=== PATIENT | male | born 1935 | race Caucasian/White ===

== ENCOUNTER 2017-03-16 13:11 | Emergency (ER) | payer OTHER, BC ==
[~2017-03-16] VITALS: Ht 170.2 cm; Wt 63.5 kg
[~2017-03-16 13:11] MED LIST: ASPEC81 PO; MOME50SP5; SIMV40TA2 PO; [UNRECOGNIZED DRUG - CODE] PO
[2017-03-16 13:15] VITALS: TEMP 36.8; Ht 170.2 cm; Wt 63.5 kg
[2017-03-16] MEDS ORDERED: ASPI325T45 PO (13:39)
[2017-03-16] MEDS ORDERED: IBUP-1050 PO (13:40)
[2017-03-16] MEDS ORDERED: HYDROCHLOROTHIAZIDE PO (13:40)
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
--- NOTE | 2017-03-16 15:05 | DIAGNOSTIC IMAGING REPORT ---
CHEST 2 VIEWS ROUTINE CLINICAL HISTORY: Pt c/o chest pain dyspnea COMPARISON STUDY: 01/08/2011 FINDINGS: Unchanging tortuosity and ectasia thoracic aorta. Diaphragms smooth. Chronic atelectasis both lung bases unchanged from the prior study. Lungs otherwise appear clear. 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 No acute or interval process. Electronically signed by: Shyam Anaya M.D. 03/16/2017 3:04 PM Dictated Date/Time: 03/16/2017 3:03 PM
[2017-03-16 15:50] VITALS: BP 154/106; PULSE 84; O2SAT 94
[2017-05-10] MEDS ORDERED: ATOR-24 PO (13:03)
[2017-07-10] MEDS ORDERED: ATOR-24 PO (13:21)
[2017-07-10] MEDS ORDERED: DVN/160 PO (13:21)
[2017-07-10] MEDS ORDERED: FLUT0.15 (13:21)
[2017-07-28] MEDS ORDERED: OXYC-57 PO (10:08)
== END 2017-03-16 16:14 | disposition home or self-care (01) ==
LOC: EDBD 13:11 → C.EDB 13:12
DX: S60.811A Abrasion of right wrist, initial encounter (principal); S60.812A Abrasion of left wrist, initial encounter; R07.89 Other chest pain; V49.40XA Driver injured in collision with unspecified motor vehicles in traffic accident, initial encounter; Y92.410 Unspecified street and highway as the place of occurrence of the external cause; Z87.891 Personal history of nicotine dependence; I10 Essential (primary) hypertension; E78.5 Hyperlipidemia, unspecified; V89.2XXA Person injured in unspecified motor-vehicle accident, traffic, initial encounter

== ENCOUNTER 2017-05-09 13:19 | Inpatient (IN) | payer BC, OTHER ==
[~2017-05-09] VITALS: Ht 170.2 cm; Wt 60.0 kg
[~2017-05-09 13:19] MED LIST changes: -ATOR-24 PO; -DVN/160 PO; -DVN80125 PO; -FLUT0.15; -HYDR25TA5 PO; -PRLSR20 PO
[2017-05-09 14:06] LABS: ISTAT CREATININE 1.2 mg/dl (0.6-1.3); ISTAT HEMOGLOBIN 15.3 g/dl (14.0-18.0); ISTAT IONIZED CALCIUM 1.13 mmol/l (1.12-1.32)
[2017-05-09] MEDS ORDERED: SODIUM CHLORIDE 0.9% 500ML 500 ML IV STA (14:09)
[2017-05-09] MEDS ORDERED: SODIUM CHLORIDE 0.9% 1000ML 1,000 ML IV STA (14:09)
[2017-05-09] MEDS ORDERED: PRLSR20 PO (14:15)
[2017-05-09] MEDS ORDERED: DVN80125 PO (14:15)
[2017-05-09] MEDS ORDERED: HYDR25TA5 PO (14:15)
[2017-05-09 14:24] LABS: URINE APPEARANCE CLEAR (CLEAR); URINE BILIRUBIN NEG (NEG); URINE COLOR YELLOW; URINE NITRITE NEG (NEG); URINE SPECIFIC GRAVITY 1.021 (1.000-1.030); UROBILINOGEN NEG (NEG); ZZUR CULT IF INDIC CLEAN CATCH NO
[2017-05-09 14:25] LABS: INR 0.9 (0.9-1.1); PROTHROMBIN TIME (PATIENT) 10.1 SECONDS (9.0-12.0)
[2017-05-09 14:28] LABS: MANUAL MICROSCOPIC REQUIRED? NO; REVIEW REQ? NO
[2017-05-09 14:29] LABS: BUN/CREATININE RATIO 20.5 (10-20); CALCIUM 9.1 mg/dl (8.5-10.1); CREATININE 1.2 mg/dl (0.60-1.40); MAGNESIUM 2.5 mg/dl (1.8-2.4); POTASSIUM 3.1 mmol/L (3.5-5.1)
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
[2017-05-09 14:40] LABS: THYROID STIMULATING HORMONE 0.99 uIu/ml (0.300-4.500)
--- NOTE | 2017-05-09 14:46 | DIAGNOSTIC IMAGING REPORT ---
CHEST ONE VIEW PORTABLE CLINICAL HISTORY: hypotension, elev... WBC fever COMPARISON STUDY: 03/16/2017 FINDINGS: Unchanging tortuosity of the thoracic aorta. Small bibasilar parenchymal infiltrates combined with basilar atelectatic change. Mid and upper lungs are considered clear. IMPRESSION: Small bibasilar atelectatic and/or infiltrative-type change. The above report was generated using voice recognition software. It may contain grammatical, syntax or spelling errors. Electronically signed by: Shyam Anaya M.D. 05/09/2017 2:45 PM Dictated Date/Time: 05/09/2017 2:44 PM
[2017-05-09] MEDS ORDERED: POTASSIUM CHLORIDE 10 MEQ / 100ML WTR IV STA (14:54)
--- NOTE | 2017-05-09 14:57 | DIAGNOSTIC IMAGING REPORT ---
HEAD CT NONCONTRAST CT DOSE: 614.27 mGy.cm HISTORY: leukocytosis, weakness, hypotension TECHNIQUE: Multiaxial CT images of the head were performed without the use of intravenous contrast. Automated exposure control was utilized for this study. A dose lowering technique was utilized adhering to the principles of ALARA. Comparison: Head CT 01/08/2011. Findings: The left mastoid air cells are clear. Partial opacification the right mastoid air cells. No fluid levels within the paranasal sinuses. A 2.1 cm right anterior nasal polyp. This previous measured 1.7 cm. This is only partially visualized on this study The calvarium and skull base are intact. There is no mass, hematoma, midline shift, acute infarct. White matter hypodensity is nonspecific but suggestive of microvascular ischemic change. The ventricles and sulci demonstrate mild age-related involutional changes. 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 Old small left parietal infarct. These remain unchanged. Impression: 1. No acute intracranial abnormality. Old infarcts as described above. 2. Slight increase in size in a 2.1 cm right anterior nasal polyp. Direct visualization is recommended for further evaluation. Electronically signed by: Rajesh Randolph M.D. 05/09/2017 2:56 PM Dictated Date/Time: 05/09/2017 2:50 PM
[2017-05-09 15:05] LABS: HEMATOCRIT 44.3 % (42-52); MEAN CELL VOLUME 92.7 fL (80-100); MEAN CORPUSCULAR HGB CONC 34.5 g/dl (32-36); MEAN PLATELET VOLUME 9.6 fL (7.4-10.4); PLATELET COUNT 185 K/uL (130-400); RED BLOOD COUNT 4.78 M/uL (4.7-6.1)
[2017-05-09 15:32] LABS: BASO % 0.1 %; BASO ABS # 0.06 K/uL (0-0.2); COMPLETE YES; EOS % 0.5 %; IG% 0.2 %; LYMPH % 74.1 %; LYMPH ABS # 32.69 K/uL (1.2-3.4); MONO % 3.7 %; NEUT % 21.4 %
[2017-05-09 16:27] VITALS: O2SAT 95; Ht 170.2 cm; Wt 60.0 kg
[2017-05-09] MEDS ORDERED: ACETAMINOPHEN 325 MG TAB PO PRN (16:45)
[2017-05-09] MEDS ORDERED: ALUMINUM/MAGNESIUM/SIMETH (MAALOX MAX) 30 ML UDC PO PRN (16:45)
[2017-05-09] MEDS ORDERED: MAGNESIUM HYDROXIDE SUSP 30 ML UDC PO PRN (16:45)
[2017-05-09] MEDS ORDERED: ONDANSETRON INJ 2 MG/ML 2 ML VIAL IV PRN (16:45)
[2017-05-09] MEDS ORDERED: NSS + 20MEQ KCL 1000ML 1,000 ML IV ONE (18:00)
[2017-05-09] MEDS ORDERED: IBUPROFEN 200 MG TAB PO PRN (18:00)
[2017-05-09] MEDS ORDERED: OPTIRAY 320 IV PRN (18:30)
[2017-05-09 18:36] VITALS: O2SAT 98
[2017-05-09] MEDS ORDERED: POLYETHYLENE (MIRALAX) 17 GM PACK PO PRN (19:15)
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
[2017-05-09 20:00] VITALS: BP 121/80; PULSE 58; TEMP 36.6; O2SAT 100
[2017-05-09] MEDS ORDERED: SIMVASTATIN 40 MG TAB PO SCH (21:00)
[2017-05-09] MEDS ORDERED: ENOXAPARIN 40 MG/0.4 ML SYR SQ SCH (21:00)
[2017-05-10 00:09] VITALS: BP 108/66; PULSE 63; TEMP 36.9; O2SAT 96
[2017-05-10 04:21] VITALS: BP 134/84; PULSE 57; TEMP 36.9; O2SAT 97
--- NOTE | 2017-05-10 07:01 | DIAGNOSTIC IMAGING REPORT ---
CT OF THE CHEST WITH IV CONTRAST CLINICAL HISTORY: WBC 40; ?CLL on smear?; staging CT COMPARISON STUDY: Chest radiograph March 16, 2017 and May 09, 2017. TECHNIQUE: Following IV administration of 93 mL of Optiray-320, helical axial images of the chest were obtained. Sagittal and coronal reconstructions were viewed as well as maximal intensity projections on an independent 3-D workstation. A dose lowering technique was utilized adhering to the principles of ALARA. FINDINGS: No enlarged axillary, mediastinal or hilar lymph nodes are present. The heart is moderately enlarged. 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 There is mild dilatation of the ascending aorta which measures 4.3 cm. There is no dissection. No pneumothorax or pleural effusion is present. There is moderate upper lobe predominant centrilobular and paraseptal emphysema. Right lower lobe opacity favors atelectasis. Left lower lobe opacity suggest atelectasis. The abdomen and pelvis will be reported separately. There are no suspicious osseous lesions. IMPRESSION: 1. No thoracic lymphadenopathy. 2. 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 Mild dilatation of the ascending aorta. No thoracic aortic dissection. No rupture. 3. Moderate upper lobe predominant emphysema. 4. Bilateral lower lobe opacities which favor atelectasis. An infectious process could appear similar although is considered less likely. Electronically signed by: Jaxson Foote M.D. 05/10/2017 6:59 AM Dictated Date/Time: 05/10/2017 6:49 AM
[2017-05-10 07:11] VITALS: BP 114/64; PULSE 65; TEMP 37.4; O2SAT 97
--- NOTE | 2017-05-10 07:15 | DIAGNOSTIC IMAGING REPORT ---
CT NECK WITH INTRAVENOUS CONTRAST. HISTORY: Assess for lymphoma. WBC 40; ?CLL on smear?; staging CT TECHNIQUE: Multiaxial CT images of the neck were performed following the use of intravenous contrast. COMPARISON STUDY: None. FINDINGS: The visualized brain parenchyma and orbits are within normal limits. A 2.1 cm polyp within the right anterior nasal cavity. Partial opacification of the right mastoid air cells. No suspicious lytic or blastic osseous lesions. Mild emphysema. The thyroid gland enhances normally. There are few subcentimeter cervical lymph nodes. These do not meet CT criteria for pathologic involvement. The major mucosal airway surfaces are intact. The parotid and submandibular glands are symmetric. Prevertebral soft tissues and the epiglottis are normal in thickness. Mild hypertrophy of the right lingual tonsils in comparison to the left. Moderate calcified plaque within the bilateral carotid bifurcations without significant stenosis. The left internal jugular vein is not well visualized and may be hypoplastic or absent. IMPRESSION: 1. No enlarged cervical lymph nodes. 2. A 2.1 cm polyp within the right anterior nasal cavity. Direct visualization recommended. 3. No soft tissue masses within the neck. 3. Emphysema. 4. Mild hypertrophy of the right lingual tonsils in comparison to the left. 5. The left internal jugular vein is not well visualized and may be hypoplastic or absent. Electronically signed by: Rajesh Randolph M.D. 05/10/2017 7:14 AM Dictated Date/Time: 05/10/2017 7:07 AM
--- NOTE | 2017-05-10 07:18 | DIAGNOSTIC IMAGING REPORT ---
CT OF THE ABDOMEN AND PELVIS WITH CONTRAST CLINICAL HISTORY: WBC 40; ?CLL on smear?; staging CT COMPARISON STUDY: None. TECHNIQUE: Following IV administration of 93 mL of Optiray-320, axial images of the abdomen and pelvis were obtained from the lung bases to the proximal femurs. Images were reviewed in the axial, sagittal, and coronal planes. IV contrast was administered without complication. A dose lowering technique was utilized adhering to the principles of ALARA. CT DOSE: 1043.37 mGy.cm FINDINGS: The liver, spleen and pancreas are unremarkable. There is no biliary or pancreatic ductal dilatation. There are innumerable bilateral renal lesions. The majority of these measure water attenuation reflect cysts. The largest is a 5.5 cm lesion arising from the lower pole of the right kidney. This contains mild peripheral calcification. A few lesions contains small septations. A 9 mm lesion within the upper pole of the left kidney shown image 116 of 421 measures above water attenuation. This lesion is indeterminate. There are several prominent upper abdominal lymph nodes, including a peripancreatic node shown image 117 that measures 1 cm in short axis diameter. A left para-aortic lymph node located inferior to the left renal vein shown on image 156 measures 1.4 cm in short axis diameter. There is extensive atherosclerotic plaque within the aortoiliac system. Thoracic aortic aneurysm is better depicted on the chest CT. The prostate is markedly enlarged. A right inguinal hernia contains several loops of small bowel. There is no resultant bowel obstruction. A left inguinal hernia contains the superior aspect of the bladder. The bladder wall thickening. No suspicious osseous lesions are present. There is no bowel obstruction. There is extensive colonic diverticulosis without evidence for acute diverticulitis. IMPRESSION: 1. A few minimally enlarged upper abdominal lymph nodes, several which are partially calcified. These lymph nodes are nonspecific although not highly suspicious for leukemia/lymphoma. 2. Innumerable bilateral renal cysts. 9 mm lesion within the upper pole of the left kidney which measures above water attenuation. This could reflect a hyperdense cyst or small solid renal lesion and a follow-up renal protocol MRI in 6 months is recommended. 3. Colonic diverticulosis without evidence for acute diverticulitis. 4. Right inguinal hernia contains several loops of small bowel without resultant bowel obstruction. Left inguinal hernia contains portion of the bladder. Bladder wall thickening, a nonspecific finding. Marked enlargement of the prostate. 5. Extensive atherosclerotic plaque of the abdominal aorta and major branch vessels. Ectatic abdominal aorta without aneurysmal dilatation of the abdominal aorta. Thoracic aortic aneurysm better depicted on the chest CT. Electronically signed by: Jaxson Foote M.D. 05/10/2017 7:16 AM Dictated Date/Time: 05/10/2017 7:02 AM
--- NOTE | 2017-05-10 07:24 | Medical Student: [facility] ---
Med Student Progress Note Date of Service May 10, 2017. Subjective Pt evaluation today including: conversation w/ patient, physical exam, chart review, lab review Patient was examined sitting up in bed this morning. He saw heme/onc this morning and will be discharged to f/u with them as an outpatient. He feels well with no complaints at this time. Review of Systems Constitutional: No fever, No chills, No sweats Eyes: No worsening of vision, No diplopia ENT: + hearing loss (R>L), No sore throat, No trouble swallowing Respiratory: No cough, No wheezing, No shortness of breath Cardiac: No chest pain, No palpitations Abdomen: No pain, No nausea, No vomiting, No diarrhea, No constipation Musculoskeletal: No joint pain, No muscle pain, No calf pain Male : No dysuria, No incontinence Neurologic: No paralysis, No weakness, No numbness/tingling Heme: No abnormal bleeding/bruising, No swollen lymph nodes Skin: No rash, No itch Objective Vital Signs Date Time Temp Pulse Resp B/P (MAP) Pulse Ox O2 Delivery O2 Flow Rate FiO2 05/10/17 07:11 37.4 65 16 114/64 (81) 97 Room Air 05/10/17 04:21 36.9 57 18 134/84 (101) 97 Room Air 05/10/17 00:09 36.9 63 20 108/66 (80) 96 Room Air 05/10/17 00:00 Room Air 100 05/09/17 20:00 36.6 58 18 121/80 (94) 100 Room Air 05/09/17 20:00 Room Air 100 05/09/17 18:36 58 18 134/97 98 05/09/17 18:02 63 22 141/83 96 Room Air 05/09/17 17:49 61 21 05/09/17 17:19 63 19 05/09/17 17:01 122/112 05/09/17 16:49 72 20 05/09/17 16:27 95 Room Air 05/09/17 16:19 56 30 95 05/09/17 16:05 60 20 109/67 95 Room Air 05/09/17 16:01 109/67 05/09/17 15:49 56 17 97 05/09/17 15:31 142/83 05/09/17 15:19 70 24 93 05/09/17 15:17 67 22 92/61 94 Room Air 05/09/17 15:00 92/61 05/09/17 14:55 90/59 05/09/17 14:24 74 05/09/17 14:14 109/60 05/09/17 14:00 94 Room Air 05/09/17 13:21 36.7 92 18 93/57 94 Physical Exam General Appearance: WD/WN, no apparent distress Eyes: bilateral eyes normal inspection, bilateral eyes PERRL, bilateral eyes EOMI ENT: normal ENT inspection, pharynx normal Neck: supple, no carotid bruits, + adenopathy present (palpable left submandibular lymph node) Respiratory/Chest: lungs clear, normal breath sounds, no respiratory distress, no accessory muscle use Cardiovascular: regular rate, rhythm, no gallop, no murmur Abdomen: normal bowel sounds, non tender, soft Extremities: normal range of motion, no calf tenderness, normal capillary refill Neurologic/Psychiatric: no motor/sensory deficits, alert, normal mood/affect, oriented x 3 Skin: normal color, warm/dry, no rash Lymphatic: + pertinent finding (palpable left submandibular lymph node) Laboratory Results Last 24 Hours Test 05/09/17 13:40 05/09/17 13:45 05/09/17 13:49 05/09/17 13:53 Urine Color YELLOW Urine Appearance CLEAR Urine pH 6.0 Urine Specific [place] 1.021 Urine Protein NEG Urine Glucose (UA) NEG Urine Ketones NEG Urine Occult Blood NEG Urine Nitrite NEG Urine Bilirubin NEG Urine Urobilinogen NEG Urine Leukocyte Esterase NEG White Blood Count 44.10 K/uL Red Blood Count 4.78 M/uL Hemoglobin 15.3 g/dL Hematocrit 44.3 % Mean Corpuscular Volume 92.7 fL Mean Corpuscular Hemoglobin 32.0 pg Mean Corpuscular Hemoglobin Concent 34.5 g/dl Platelet Count 185 K/uL Mean Platelet Volume 9.6 fL Neutrophils (%) (Auto) 21.4 % Lymphocytes (%) (Auto) 74.1 % Monocytes (%) (Auto) 3.7 % Eosinophils (%) (Auto) 0.5 % Basophils (%) (Auto) 0.1 % Neutrophils # (Auto) 9.40 K/uL Lymphocytes # (Auto) 32.69 K/uL Monocytes # (Auto) 1.63 K/uL Eosinophils # (Auto) 0.22 K/uL Basophils # (Auto) 0.06 K/uL RDW Standard Deviation 47.9 fL RDW Coefficient of Variation 14.2 % Immature Granulocyte % (Auto) 0.2 % Immature Granulocyte # (Auto) 0.10 K/uL Blood Smear Review Prothrombin Time 10.1 SECONDS Prothromb Time International Ratio 0.9 Activated Partial Thromboplast Time 25.1 SECONDS Partial Thromboplastin Ratio 1.0 Sodium Level 138 mmol/L Potassium Level 3.1 mmol/L Chloride Level 100 mmol/L Carbon Dioxide Level 32 mmol/L Anion Gap 6.0 mmol/L 17.0 mmol/L Blood Urea Nitrogen 25 mg/dl Creatinine 1.20 mg/dl Est Creatinine Clear Calc Drug Dose 42.4 ml/min Estimated GFR () 66.3 Estimated GFR (Non- 57.2 BUN/Creatinine Ratio 20.5 Random Glucose 134 mg/dl Calcium Level 9.1 mg/dl Magnesium Level 2.5 mg/dl Total Bilirubin 0.7 mg/dl Direct Bilirubin 0.1 mg/dl Aspartate Amino Transf (AST/SGOT) 15 U/L Alanine Aminotransferase (ALT/SGPT) 34 U/L Alkaline Phosphatase 75 U/L Total Creatine Kinase 33 U/L Creatine Kinase MB 1.0 ng/ml Creatine Kinase MB Ratio 3.0 Total Protein 7.0 gm/dl Albumin 3.3 gm/dl Thyroid Stimulating Hormone (TSH) 0.990 uIu/ml Bedside Lactic Acid Venous 1.71 mmol/L Bedside Hemoglobin 15.3 g/dl Bedside Hematocrit 45 % Bedside Sodium 137 mEq/L Bedside Potassium 3.1 mEq/L Bedside Chloride 95 mEq/L Bedside Total CO2 29 mEq/l Bedside Blood Urea Nitrogen 27 mg/dl Bedside Creatinine 1.2 mg/dl Bedside Glucose (other) 140 mg/dl Bedside Ionized Calcium (Evan) 1.13 mmol/l Test 05/10/17 04:44 Assessment and Plan Assessment and Plan: This is a 81yo male with incidental finding of WBC 40 on outpatient labs and subsequent peripheral smear suggestive of CLL with no B symptoms suggestive of acute blast crisis. Plan: 1. Lymphocytosis with CLL -WBC 40, peripheral smear suggestive of CLL -CT w/ contrast of neck, thorax abdomen/pelvis for staging -heme/onc consult completed -patient will be discharged and will f/u as outpatient with heme/onc 2. Hypertension - patient presented with BP 90s/60s, responsive to fluid boluses in the ED -continue IV nss + 20meq KCl -HOLD HCT and Lisinopril HCTZ; continue to monitor BP 3. GERD -continue omeprazole 20mg PO daily 4. Hx of Carotid atherosclerosis with endarterectomy -continue ASA 325mg PO daily 5. DVT prophylaxis -lovenox 40 mg s.c. daily 6. Discharge -Location: home w/ heme-onc f/u -Date: 05/10/17 Discharge planning: home (with outpatient heme/onc follow-up)
[2017-05-10] MEDS ORDERED: PANTOprazole SOD 40 MG TAB PO SCH (08:00)
[2017-05-10] MEDS ORDERED: ASPIRIN 325 MG ECTAB PO SCH (08:00)
[2017-05-10 09:35] LABS: BUN/CREATININE RATIO 15.3 (10-20); CALCIUM 8.4 mg/dl (8.5-10.1); CREATININE 0.96 mg/dl (0.60-1.40)
[2017-05-10 09:48] LABS: POTASSIUM 3.7 mmol/L (3.5-5.1)
[2017-05-10 10:27] LABS: HEMATOCRIT 36.4 % (42-52); MEAN CELL VOLUME 92.6 fL (80-100); MEAN CORPUSCULAR HEMOGLOBIN 30.5 pg (25-34); MEAN PLATELET VOLUME 9.5 fL (7.4-10.4); PLATELET COUNT 158 K/uL (130-400); RED BLOOD COUNT 3.93 M/uL (4.7-6.1); WHITE BLOOD COUNT 34.59 K/uL (4.8-10.8)
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
[2017-05-10 10:58] LABS: BASO % 0.1 %; BASO ABS # 0.03 K/uL (0-0.2); COMPLETE YES; EOS % 0.8 %; IG% 0.3 %; LYMPH % 70.7 %; LYMPH ABS # 24.47 K/uL (1.2-3.4); NEUT % 24.1 %
--- NOTE | 2017-05-10 11:14 | Discharge Instructions ---
Discharge Instructions Date of Service May 10, 2017. Admission Reason for Admission: Lymphocytosis, Weakness Discharge Discharge Diagnosis / Problem: CLL Discharge Goals Goal(s): Diagnostic testing, Screening Activity Recommendations Activity Limitations: resume your previous activity Exercise/Sports Limitations: as tolerated Shower/Bathe: no limitations . Instructions / Follow-Up Instructions / Follow-Up You came to the ED because you had high white blood cells that were incidentally caught on your lab work. A smear of your blood is suggestive of chronic lymphocytic leukemia. 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 We will arrange for you to see a vascular surgeon to get their recommendations on long-term management but this is not an acute issue that requires intervention at this time. We are going to change your simvastatin to atorvastatin, to help with plaque stabilization - You have have a non-specific spot on your kidney, which should be followed-up in [address] with [address] scan. We will notify your PCP so he can arrange this. - There is no clear areas of CLL infiltrating your organs which is very reassuring Our oncologist saw you and recommends you can be discharged with follow-up in the office. CLL is usually monitored closely in the outpatient setting without intervention unless there are symptoms or invasive disease of the organs, which fortunately, you do not have. We will arrange for you to see oncology in the outpatient office. You blood pressure was also slightly low when you came in and we noticed that you were on two blood pressure medications. We held both of these. Because your blood pressure was so well-controlled in the hospital, please hold your HCTZ until you follow up with your PCP. If your symptoms fail to improve, acutely worsen, please seek medical attention immediately by either calling your primary care provider or going to your nearest emergency department. Otherwise, please see your primary care provider in 3-5 days to ensure that your symptoms continue to improve. Current Hospital Diet Patient's current hospital diet: AHA Diet (Heart Healthy) Discharge Diet Recommended Diet: Regular Diet Procedures Procedures Performed: CT NECK WITH INTRAVENOUS CONTRAST. HISTORY: Assess for lymphoma. WBC 40; ?CLL on smear?; staging CT TECHNIQUE: Multiaxial CT images of the neck were performed following the use of intravenous contrast. COMPARISON STUDY: None. FINDINGS: The visualized brain parenchyma and orbits are within normal limits. A 2.1 cm polyp within the right anterior nasal cavity. Partial opacification of the right mastoid air cells. No suspicious lytic or blastic osseous lesions. Mild emphysema. The thyroid gland enhances normally. There are few subcentimeter cervical lymph nodes. These do not meet CT criteria for pathologic involvement. The major mucosal airway surfaces are intact. The parotid and submandibular glands are symmetric. Prevertebral soft tissues and the epiglottis are normal in thickness. Mild hypertrophy of the right lingual tonsils in comparison to the left. Moderate calcified plaque within the bilateral carotid bifurcations without significant stenosis. The left internal jugular vein is not well visualized and may be hypoplastic or absent. IMPRESSION: 1. No enlarged cervical lymph nodes. 2. A 2.1 cm polyp within the right anterior nasal cavity. Direct visualization recommended. CT OF THE CHEST WITH IV CONTRAST CLINICAL HISTORY: WBC 40; ?CLL on smear?; staging CT COMPARISON STUDY: Chest radiograph March 16, 2017 and May 09, 2017. TECHNIQUE: Following IV administration of 93 mL of Optiray-320, helical axial images of the chest were obtained. Sagittal and coronal reconstructions were viewed as well as maximal intensity projections on an independent 3-D workstation. A dose lowering technique was utilized adhering to the principles of ALARA. FINDINGS: No enlarged axillary, mediastinal or hilar lymph nodes are present. The heart is moderately enlarged. 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 There is mild dilatation of the ascending aorta which measures 4.3 cm. There is no dissection. No pneumothorax or pleural effusion is present. There is moderate upper lobe predominant centrilobular and paraseptal emphysema. Right lower lobe opacity favors atelectasis. Left lower lobe opacity suggest atelectasis. The abdomen and pelvis will be reported separately. There are no suspicious osseous lesions. IMPRESSION: 1. No thoracic lymphadenopathy. 2. 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 Mild dilatation of the ascending aorta. No thoracic aortic dissection. No rupture. 3. Moderate upper lobe predominant emphysema. 4. Bilateral lower lobe opacities which favor atelectasis. An infectious process could appear similar although is considered less likely. Electronically signed by: Jaxson Foote M.D. 05/10/2017 6:59 AM Dictated Date/Time: 05/10/2017 6:[address] OF THE ABDOMEN AND PELVIS WITH CONTRAST CLINICAL HISTORY: WBC 40; ?CLL on smear?; staging CT COMPARISON STUDY: None. TECHNIQUE: Following IV administration of 93 mL of Optiray-320, axial images of the abdomen and pelvis were obtained from the lung bases to the proximal femurs. Images were reviewed in the axial, sagittal, and coronal planes. IV contrast was administered without complication. A dose lowering technique was utilized adhering to the principles of ALARA. CT DOSE: 1043.37 mGy.cm FINDINGS: The liver, spleen and pancreas are unremarkable. There is no biliary or pancreatic ductal dilatation. There are innumerable bilateral renal lesions. The majority of these measure water attenuation reflect cysts. The largest is a 5.5 cm lesion arising from the lower pole of the right kidney. This contains mild peripheral calcification. A few lesions contains small septations. A 9 mm lesion within the upper pole of the left kidney shown image 116 of 421 measures above water attenuation. This lesion is indeterminate. There are several prominent upper abdominal lymph nodes, including a peripancreatic node shown image 117 that measures 1 cm in short axis diameter. A left para-aortic lymph node located inferior to the left renal vein shown on image 156 measures 1.4 cm in short axis diameter. There is extensive atherosclerotic plaque within the aortoiliac system. Thoracic aortic aneurysm is better depicted on the chest CT. The prostate is markedly enlarged. A right inguinal hernia contains several loops of small bowel. There is no resultant bowel obstruction. A left inguinal hernia contains the superior aspect of the bladder. The bladder wall thickening. No suspicious osseous lesions are present. There is no bowel obstruction. There is extensive colonic diverticulosis without evidence for acute diverticulitis. IMPRESSION: 1. A few minimally enlarged upper abdominal lymph nodes, several which are partially calcified. These lymph nodes are nonspecific although not highly suspicious for leukemia/lymphoma. 2. Innumerable bilateral renal cysts. 9 mm lesion within the upper pole of the left kidney which measures above water attenuation. This could reflect a hyperdense cyst or small solid renal lesion and a follow-up renal protocol MRI in 6 months is recommended. 3. Colonic diverticulosis without evidence for acute diverticulitis. 4. Right inguinal hernia contains several loops of small bowel without resultant bowel obstruction. Left inguinal hernia contains portion of the bladder. Bladder wall thickening, a nonspecific finding. Marked enlargement of the prostate. 5. Extensive atherosclerotic plaque of the abdominal aorta and major branch vessels. Ectatic abdominal aorta without aneurysmal dilatation of the abdominal aorta. Thoracic aortic aneurysm better depicted on the chest CT. Electronically signed by: Jaxson Foote M.D. 05/10/2017 7:16 AM Dictated Date/Time: 05/10/2017 7:02 AM Pending Studies Studies pending at discharge: no Laboratory Results Lipid Panel Test 05/09/17 09:07 Range/Units Triglycerides Level 140 0-150 mg/dl Cholesterol Level 150 0-200 mg/dl HDL Cholesterol 60 mg/dl Cholesterol/HDL Ratio 2.5 LDL Cholesterol, Calculated 62 mg/dl Medical Emergencies . Who to Call and When: Medical Emergencies: If at any time you feel your situation is an emergency, please call 911 immediately. . Non-Emergent Contact Non-Emergency issues call your: Primary Care Provider Call Non-Emergent contact if: you have a fever, you have any medication questions . . "Provider Documentation" section prepared by Eh Alexandre. . VTE Core Measure Inpt VTE Proph given/why not?: Enoxaparin (Lovenox)SQ
[2017-05-10 11:18] VITALS: BP 107/67; PULSE 70; TEMP 36.7; O2SAT 96
[2017-05-10] MEDS ORDERED: ATOR-24 PO (13:03)
[2017-05-10 13:18] VITALS: BP 107/67; PULSE 70; TEMP 36.7; O2SAT 96
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
[2017-07-10] MEDS ORDERED: DVN/160 PO (13:21)
[2017-07-10] MEDS ORDERED: ATOR-24 PO (13:21)
[2017-07-10] MEDS ORDERED: FLUT0.15 (13:21)
== END 2017-05-10 14:21 | disposition home or self-care (01) | DRG 842 ==
LOC: C.EDB 13:21 → C.4E 17:47 → ENRESERV 17:54
PROVIDERS: ADMIT Student in an Organized Health Care Education/Training Program; ATTEND Family Medicine
DX: C91.10 Chronic lymphocytic leukemia of B-cell type not having achieved remission (principal); E78.5 Hyperlipidemia, unspecified; I10 Essential (primary) hypertension; Z87.891 Personal history of nicotine dependence; K21.9 Gastro-esophageal reflux disease without esophagitis; H90.5 Unspecified sensorineural hearing loss; I67.2 Cerebral atherosclerosis; K30 Functional dyspepsia

== ENCOUNTER → 2017-05-09 | Outpatient (CLI) | payer BC ==
[~2017-05-09] MED LIST changes: -ASPEC81 PO; +ASPI325T45 PO; +ATOR-24 PO; +DVN/160 PO; +DVN80125 PO; +FLUT0.15; +HYDR25TA5 PO; +HYDROCHLOROTHIAZIDE PO; +IBUP-1050 PO; -MOME50SP5; +PRLSR20 PO
[2017-05-09 10:46] LABS: HEMATOCRIT 43.9 % (42-52); MEAN CELL VOLUME 93.2 fL (80-100); MEAN CORPUSCULAR HEMOGLOBIN 31.6 pg (25-34); MEAN CORPUSCULAR HGB CONC 33.9 g/dl (32-36); MEAN PLATELET VOLUME 9.6 fL (7.4-10.4); PLATELET COUNT 163 K/uL (130-400); RED BLOOD COUNT 4.71 M/uL (4.7-6.1); WHITE BLOOD COUNT 40.29 K/uL (4.8-10.8)
[2017-05-09 10:58] LABS: BASO % 0.1 %; BASO ABS # 0.05 K/uL (0-0.2); COMPLETE YES; EOS % 0.8 %; IG% 0.2 %; MONO % 3.9 %
[2017-05-09 12:00] LABS: ALT/SGPT 36 U/L (12-78); AST/SGOT 17 U/L (15-37); BLOOD UREA NITROGEN 23 mg/dl (7-18); BUN/CREATININE RATIO 23.1 (10-20); CALCIUM 9.2 mg/dl (8.5-10.1); CARBON DIOXIDE 34 mmol/L (21-32); CHLORIDE 98 mmol/L (98-107); CHOLESTEROL 150 mg/dl (0-200); GLUCOSE 93 mg/dl (70-99); POTASSIUM 3.4 mmol/L (3.5-5.1); SODIUM 138 mmol/L (136-145)
[2017-05-09 12:11] LABS: ALB/GLOB RATIO 0.9 (0.9-2); ALKALINE PHOSPHATASE 67 U/L (45-117); CHOLESTEROL/HDL RATIO 2.5; HDL CHOLESTEROL 60 mg/dl; LDL CHOLESTEROL CALCULATED 62 mg/dl; TRIGLYCERIDES 140 mg/dl (0-150); VERY LOW DENSITY LIPOPROT CALC 28 mg/dl
== END | disposition home or self-care (01) ==
LOC: C.LAB1850 09:01
PROVIDERS: ATTEND Internal Medicine
DX: E78.5 Hyperlipidemia, unspecified (principal); I67.2 Cerebral atherosclerosis; K30 Functional dyspepsia

== ENCOUNTER → 2017-05-22 | Outpatient (CLI) | payer BC, OTHER ==
[~2017-05-22] MED LIST changes: +ATOR-24 PO; +DVN/160 PO; +DVN80125 PO; +FLUT0.15; +GADAVIST IV PRN; -HYDROCHLOROTHIAZIDE PO; +PRLSR20 PO; -SIMV40TA2 PO; -[UNRECOGNIZED DRUG - CODE] PO
--- NOTE | 2017-05-22 10:54 | DIAGNOSTIC IMAGING REPORT ---
BRAIN COMBO FOR IAC CLINICAL HISTORY: *W/ IACS*RETRACTION OF TYMPANIC MEMBRANE OF RT EAR. Right-sided hearing loss COMPARISON STUDY: MRI of the brain January 09, [address] May 09, 2017. TECHNIQUE: Utilizing a 1.5 Nora magnet, multiplanar, multi echo imaging of the brain was performed pre and postcontrast administration with thin cut imaging through the internal auditory canals. Injection of 5.5 cc of Gadavist IV was uneventful. FINDINGS: There are no areas of restricted diffusion. No acute intracranial hemorrhage, midline shift or mass effect is present. Ventricular system is stable. Basilar cisterns are patent. There are no extra-axial collections. Flow-voids for the major intracranial vessels are present. There is no intracranial mass or pathologic enhancement. No abnormalities are identified within the internal auditory canals. No cerebellopontine angle mass is present. A moderate amount of fluid is noted within the right mastoid air cells. There is no fluid within left mastoid air cells. Evaluation for bony erosion is suboptimal given MR technique. There are scattered old lacunar infarcts. Moderate small vessel disease is present. Calvarial signal is maintained. A 2 cm right anterior nasal polyp is noted. IMPRESSION: 1. No acute intracranial findings. 2. Right mastoid effusion with moderate amount of fluid within the right mastoid air cells. 3. No abnormalities within the internal auditory canals. 4. No intracranial masses or pathologic enhancement. Electronically signed by: Jaxson Foote M.D. 05/22/2017 10:52 AM Dictated Date/Time: 05/22/2017 10:45 AM
== END | disposition home or self-care (01) ==
LOC: C.MRIBC 09:07
PROVIDERS: ATTEND Physician Assistant
DX: H73.891 Other specified disorders of tympanic membrane, right ear (principal)

== ENCOUNTER 2017-07-26 06:06 | Inpatient (IN) | payer BC, OTHER ==
[2017-07-10 13:21] VITALS: BMI 21.0
--- NOTE | 2017-07-10 13:57 | PAT Medication Instructions ---
Service Date Jul 10, 2017. Current Home Medication List Aspirin (Aspirin), 325 MG PO QAM Atorvastatin (Lipitor), 40 MG PO QPM Fluticasone Propionate (Nasal) (Flonase Allergy Relief), 1 DOSE NA DAILY Ibuprofen (Advil), 200-600 MG PO Q4H PRN for Pain Omeprazole (Prilosec), 20 MG PO DAILY Valsartan (Diovan), 160 MG PO QAM Medication Instructions For Your Scheduled Surgery - Check with surgeon for instructions: Ibuprofen (Advil), 200-600 MG PO Q4H PRN for Pain - Check with surgeon and prescribing physician for instructions: Aspirin (Aspirin), 325 MG PO QAM - Hold the following medications the morning of surgery: Valsartan (Diovan), 160 MG PO QAM - Take the following medications the morning of surgery with a sip of water: Omeprazole (Prilosec), 20 MG PO DAILY Fluticasone Propionate (Nasal) (Flonase Allergy Relief), 1 DOSE NA DAILY - Take the following medications as scheduled the night before surgery: Atorvastatin (Lipitor), 40 MG PO QPM If you have any questions please call us at [phone] or [phone] or [phone]
[2017-07-10 14:37] LABS: PROTHROMBIN TIME (PATIENT) 11.2 SECONDS (9.0-12.0)
[2017-07-10 15:12] LABS: HEMATOCRIT 41.9 % (42-52); MEAN CELL VOLUME 92.3 fL (80-100); MEAN CORPUSCULAR HEMOGLOBIN 31.1 pg (25-34); MEAN CORPUSCULAR HGB CONC 33.7 g/dl (32-36); MEAN PLATELET VOLUME 9.4 fL (7.4-10.4); PLATELET COUNT 171 K/uL (130-400); RED BLOOD COUNT 4.54 M/uL (4.7-6.1); WHITE BLOOD COUNT 13.06 K/uL (4.8-10.8)
[2017-07-10 16:38] LABS: BUN/CREATININE RATIO 19.9 (10-20); CALCIUM 9.3 mg/dl (8.5-10.1); POTASSIUM 3.5 mmol/L (3.5-5.1)
[2017-07-10 16:52] LABS: BASO % 0.4 %; BASO ABS # 0.05 K/uL (0-0.2); COMPLETE YES; EOS % 2.3 %; IG% 0.1 %; LYMPH % 57.9 %; LYMPH ABS # 7.56 K/uL (1.2-3.4); MONO % 5.7 %; NEUT % 33.6 %
[~2017-07-26] VITALS: Ht 170.2 cm; Wt 63.8 kg
[2017-07-26] VITALS (12 sets, daily range): BP systolic 108–178; BP diastolic 56–112; PULSE 60–97; TEMP 36.3–36.7; O2SAT 97–100; Ht 170.2 cm; Wt 63.8 kg
--- NOTE | 2017-07-26 05:33 | History and Physical ---
History & Physical Date of Service Jul 26, 2017. History & Physical CC: Thoracic aortic aneurysm HPI: Mr. Kline is a 81-year-old gentleman who was recently admitted for hypotension. He was found to have an elevated white count and lymphocytosis. Diagnosis was made of chronic lymphocytic leukemia. He also had a CT scan which showed a 6.3 cm thoracic aortic aneurysm. This was of the descending aorta. He is asymptomatic from this lesion. He denies any chest complaints of cardiac origin. He denies any claudication. He denies any symptoms of cerebrovascular insufficiency. ALLERGIES: KVNG INHIBITORS AND CODEINE. MEDICATIONS: Aspirin, hydrochlorothiazide, omeprazole, simvastatin and valsartan. PAST MEDICAL HISTORY: Positive for hypertension, carotid artery disease and stroke. PAST SURGICAL HISTORY: Tonsillectomy, hernia repair and left carotid endarterectomy. FAMILY HISTORY: Positive for heart disease, hypertension, cancer, circulatory problems and stroke. SOCIAL HISTORY: He quit smoking in 2008. He drinks 1 beer or glass of wine a day. REVIEW OF SYSTEMS: Ten systems were reviewed. Only positive finding was occasional heartburn. PHYSICAL EXAMINATION: The patient is awake, oriented x3. He is in no apparent distress. His blood pressure is 146/90 on the left, 148/86 on the right. Head and neck are within normal limits. I cannot appreciate carotid bruits. Heart regular rate and rhythm. Lungs are clear. Abdominal exam is benign, no aneurysmal dilatation of the aorta is appreciated. Vascular exam is radials, carotids, superficial temporal arteries +2 bilaterally. Femorals are +2 bilaterally. Pedals are +1 bilaterally. There is good capillary refill in both feet. Neurologic exam is grossly intact to motor and sensory function. I reviewed the CT scan and showed a 6.3 cm, mid thoracic descending aortic aneurysm. It has a good proximal and distal neck. ASSESSMENT: Thoracic aortic aneurysm. PLAN AND RECOMMENDATIONS: At this point due to size of the aneurysm, we recommended an endovascular repair. He is a good candidate for this approach looking at the CT scan. In regards to his CLL the oncologists are following up conservatively at this point and have no plans of treatment in the near future. He was also told about spinal monitoring for the procedure and risk of paraplegia. I have discussed the risks options and benefits of the procedure with the patient. The patient understands the risks options and benefits and agrees to the procedure.
[~2017-07-26 06:06] MED LIST changes: +CEFAZOLIN 1000MG IV PUSH 5 ML IV SCH; -DVN80125 PO; -GADAVIST IV PRN; +LACTATED RINGER'S 1000ML 1,000 ML IV SCH; +SODIUM CHLORIDE 0.9% 1000ML 1,000 ML IV SCH
[2017-07-26] MEDS ORDERED: ONDANSETRON INJ 2 MG/ML 2 ML VIAL ONE (06:24)
[2017-07-26] MEDS ORDERED: MIDAZOLAM HCL 1 MG/ML 2ML VIAL ONE (06:24)
[2017-07-26] MEDS ORDERED: PROPOFOL IV EMULSION 10 MG/ML 20 ML VIAL IV ONE (06:24)
[2017-07-26] MEDS ORDERED: ROCURONIUM BROMIDE 10 MG/ML 5 ML VIAL IV ONE ×2 (06:24→09:55)
[2017-07-26] MEDS ORDERED: LIDOCAINE HCL 2% 2 ML VIAL (20MG/ML) ONE (06:24)
[2017-07-26] MEDS ORDERED: FENTANYL CITRATE INJ 50 MCG/1 ML 2 ML VIAL ONE (06:25)
[2017-07-26] MEDS ORDERED: FENTANYL CITRATE INJ 50 MCG/1 ML 2 ML VIAL IV PRN (07:00)
[2017-07-26] MEDS ORDERED: ATROPINE SULFATE 0.1 MG/ML 5ML SYR IV PRN (07:00)
[2017-07-26] MEDS ORDERED: EpHEDrine SULFATE INJ 50 MG/ML AMP IV PRN (07:00)
[2017-07-26] MEDS ORDERED: ONDANSETRON INJ 2 MG/ML 2 ML VIAL IV PRN (07:00)
[2017-07-26] MEDS ORDERED: GELATIN SPONGE SZ 100 ONE (07:12)
[2017-07-26] MEDS ORDERED: THROMBIN FOR SOLN 20000 UNIT KIT ONE (07:12)
[2017-07-26] MEDS ORDERED: HEPARIN SOD (PORCINE) 1000 UNIT/ML 10 ML VIAL ONE ×2 (07:13→09:20)
[2017-07-26] MEDS ORDERED: CEFAZOLIN SOD 1 GM VIAL ONE (07:13)
[2017-07-26 07:19] LABS: BUN/CREATININE RATIO 22.8 (10-20); CALCIUM 9.1 mg/dl (8.5-10.1); CREATININE 0.97 mg/dl (0.60-1.40); POTASSIUM 3.5 mmol/L (3.5-5.1)
[2017-07-26] MEDS ORDERED: LIDOCAINE HCL 2% JELLY 30 ML TUBE EXT ONE (07:23)
[2017-07-26] MEDS ORDERED: LIDOCAINE/EPINEPHRINE 1% INJ 50 ML VIAL ONE (07:24)
--- NOTE | 2017-07-26 07:47 | History & Physical Bridge Note ---
H&P Re-Evaluation Bridge Note: I have examined the patient, reviewed the History & Physical and in the interval since the performance of the History & Physical I have noted the following changes of clinical significance: No changes noted
[2017-07-26] MEDS ORDERED: BUPIVACAINE/EPINEPHRINE 0.5% MPF 1:200,000 30 ML VIAL ONE ×2 (08:15)
[2017-07-26] MEDS ORDERED: EpHEDrine SULFATE 50MG/5ML SYR ONE (08:54)
[2017-07-26] MEDS ORDERED: ALBUMIN HUMAN 5% 12.5 GM/250 ML VIAL IV ONE (10:00)
[2017-07-26] MEDS ORDERED: MINERAL OIL LIGHT 10 ML BTL ONE (10:08)
[2017-07-26] MEDS ORDERED: IODIXANOL (VISIPAQUE) 270 MG/ML 150ML XX ONE (10:45)
[2017-07-26] MEDS ORDERED: PHENYLEPHRINE HCL INJ 10 MG/ML VIAL ONE (10:48)
[2017-07-26] MEDS ORDERED: EpHEDrine SULFATE INJ 50 MG/ML AMP ONE (10:48)
[2017-07-26] MEDS ORDERED: GLYCOPYRROLATE INJ 0.2 MG/ML VIAL ONE (11:05)
[2017-07-26] MEDS ORDERED: NEOSTIGMINE METHYLSULFATE 5 MG/5 ML SYR ONE (11:05)
[2017-07-26] MEDS ORDERED: LABETALOL HCL IV 5 MG/ML 20ML IV ONE (11:13)
--- NOTE | 2017-07-26 11:14 | [facility] Post Operative Brief Note ---
Immediate Operative Summary Operative Date Jul 26, 2017. Pre-Operative Diagnosis Thoracic aortic aneurysm Post-Operative Diagnosis Thoracic aortic aneurysm Procedure(s) Performed Thoracic Endovascular Repair of Thoracic Aortic Aneurysm, Open Right Femoral Exposure, Repair Right Femoral Artery Interposition Graft, Bilateral Cannulation of the Aorta Surgeon Dr. Ortez Director Account Management Surgeon(s) Steph Aceves PA-C Estimated Blood Loss 250 mL Findings no endoleak Specimens None per surgeon Anesthesia Gen Complication(s) None Disposition Surgical ICU
[2017-07-26] MEDS: D5W AND 1/2NSS 1,000 ML IV SCH ×2 (11:41→20:16)
[2017-07-26] MEDS ORDERED: SODIUM CHLORIDE 0.9% 500ML 500 ML IV ONE ×2 (12:00→13:00)
[2017-07-26 12:13] LABS: HEMATOCRIT 33.1 % (42-52)
--- NOTE | 2017-07-26 12:57 | Anesthesiology Progress Note ---
Anesthesia Post Op Note Date & Time Jul 26, 2017 at 12:56 Vital Signs Pain Intensity: 0 Vital Signs Past 12 Hours Date Time Temp Pulse Resp B/P (MAP) Pulse Ox O2 Delivery O2 Flow Rate FiO2 07/26/17 06:35 36.5 73 20 178/112 97 Room Air Notes Mental Status: alert / awake / arousable, participated in evaluation Pt Amnestic to Procedure: Yes Nausea / Vomiting: adequately controlled Pain: adequately controlled Airway Patency, RR, SpO2: stable & adequate BP & HR: stable & adequate Hydration State: stable & adequate Anesthetic Complications: no major complications apparent
[2017-07-26] MEDS: CEFAZOLIN IV 1,000 MG in SYRINGE 0 ML IV SCH ×2 (13:12→20:38)
--- NOTE | 2017-07-26 13:48 | [facility] Operative Report ---
Operative Report Operative Date Jul 26, 2017. Pre-Operative Diagnosis Thoracic aortic aneurysm Post-Operative Diagnosis Thoracic aortic aneurysm Procedure(s) Performed Thoracic Endovascular Repair of Thoracic Aortic Aneurysm, Open Right Femoral Exposure, Repair Right Femoral Artery Interposition Graft, Bilateral Cannulation of the Aorta Surgeon Dr. Ortez Bottle Capping Machine Operator Surgeon(s) Steph Aceves PA-C Estimated Blood Loss 250 mL Findings no endoleak Specimens None per surgeon Anesthesia Gen Complication(s) None Disposition Surgical ICU Indications This is a 81-year-old gentleman with a large descending thoracic aortic aneurysm. Due to the size repair was recommended. I have discussed the risks options and benefits of the procedure with the patient. The patient understands the risks options and benefits and agrees to the procedure. Description of Procedure The patient was taken to the angio suite and placed in the supine position. After general anesthesia was accomplished the patient was prepped and draped in a sterile manner. A percutaneous puncture was made of the right common femoral artery and a 5 [place] sheath was inserted. The right side was then punctured in the common femoral artery. An 035 wire was inserted. 5 [place] sheath was inserted over the wire. An 035 Glidewire was inserted through the 5 [place] sheath on the left side. This was passed up into the thoracic aorta. A pigtail was then passed up to the arch. The patient was heparinized at that time. The right sided sheath was exchanged after preclosing it with the Proglide devices. We dilated the artery up to a 22 [place]. We then inserted 24 [place] sheath. This went up only slightly. There appeared to be a area of narrowing in the common iliac and external iliac artery junction. We decided to balloon this area with a 9 x 4 balloon. This went well. There was a waist present and it dilated nicely. We decided to try to go bareback with the device. We had a 40 x 20 device. This was passed up over the a curved Lunderquist which had been exchanged for the 035 using a Kumpe catheter. The device went to the distal arch. Due to the tortuosity of the iliac artery, it buckled on itself. A that point it was decided to remove the device and try to redilate the external iliac. The device was pulled down. The sheath came out of the femoral artery with the device. Device could not be brought out through the common femoral puncture site. It was believed that the device had pulled down plaque that was cracked with the balloon angioplasty and was now lodged with the device in the common femoral artery. Therefore we made an incision in the right groin exposing the common femoral artery. An arteriotomy was then made in the proximal common femoral artery after obtaining control more proximally. Once this was done we were able to free up the device and removed it with a large amount of plaque from the external iliac and common femoral arteries. Excellent flow was seen at that time. At that point we reinserted the 8 [place] sheath. Using a 035 Glidewire and Kumpe catheter the angled Lunderquist was exchanged and placed up in the arch. Arteriography was then performed showing the beginning of the aneurysm and the neck. The 40 x 15 device was used at this time adn was passed up and placed at the proximal neck into the arch. This device was then deployed. We then inserted a 40 x 10 extension into the sheath and extended the graft into the distal landing zone. We the dilated the graft with a trilobed balloon. Before we deployed the grafts , the pigtail was pulled down and then reinserted and passed up into the arch proximally through the graft. Aortography was done at that time and showed a widely patent graft without any kinks or endoleak's. At that point the pigtail was pulled down to the aortic bifurcation. The sheath in the right groin was then removed. The artery was then clamped proximally. Superficial femoral and profunda femoral arteries were clamped distally. The common femoral artery had a large amount of plaque which was endarterectomized with thin posterior wall. It was decided to resect this area and replaced it with a 8 mm propatent graft approximately 5 cm long. The graft was sown in place in an interposition fashion using a CV 5 [place]-Steve suture. Prior to completing both anastomoses back bleeding and fore bleeding were allowed to occur. The final few sutures were then placed and securely tied. Clamps were then removed from the profunda and common femoral arteries and finally the superficial femoral artery. Adequate hemostasis was seen and good flow was heard with Doppler going through the interposition graft. We then did another run with the pigtail at the bifurcation showing the external iliac artery on the right-sided to be widely patent without any evidence of dissection or remaining plaque. Adequate hemostasis was then seen in the right groin. The right groin was then closed using a running 2-0 Vicryl suture for the femoral sheath and a 3-0 Vicryl subcutaneous layer and manju for the skin. The left side sheath was then pulled over the wire and the puncture site closed in the Star closure device without difficulty. Sterile dressings were applied to the wounds and the patient left the Angio suite in good condition and tolerated the procedure well. He was transported directly to the surgical intensive care unit. Steph Aceves Pac assisted due to lack of resident availability and was necessary for prepping, draping, retraction, wound closure defects, subQ and skin closure and was necessary for the case. I attest to the content of the Intraoperative Record and any orders documented therein. Any exceptions are noted below.
--- NOTE | 2017-07-26 14:12 | Progress Note ---
Progress Note Date of Service Jul 26, 2017. Progress Note I assisted Dr Ortez with Randal Kline's Thoracic Endovascular Repair of Thoracic Aortic Aneurysm, Open Right Femoral Exposure, Repair Right Femoral Artery Interposition Graft, Bilateral Cannulation of the Aorta on 07/26/17, d/t lack of resident availability.
--- NOTE | 2017-07-26 14:16 | Critical Care Consultation ---
Critical Care Consultation Date of Consultation: Jul 26, 2017. Attending Physician: Deshawn Ortez M.D. Reason for Consultation: Monitoring s/p thoracic endovascular aortic repair History of Present Illness 81 year old male with PMH of HTN, Carotid disease and stroke who is being monitored in the ICU s/p thoracic endovascular aortic repair done by Dr. Ortez on 07/26/17 Patient was admitted to [facility] on May 09 for hypotension. During that admission he was found to have chronic lymphocytic leukemia and a chest CT found a 6.3cm thoracic aortic aneurysm in the descending aorta. He was asymptomatic from the aneurysm and was scheduled for a TEVAR with Dr. Ortez for repair of this aneurysm on July 26. On the morning of July 26 he went for surgery with Dr. Ortez. He had TEVAR of his descending aorta as well as a right femoral artery graft placed. During the surgery and post operatively he has had spinal pressure monitoring. The cad specialist was consulted for monitoring of the patient post op in the ICU Past Medical/Surgical History Hypertension - well controlled on valsartan, runs in the 120-130s/80s at home Carotid artery disease - had a left carotid endarterectomy in 2008 Stroke - in 2008 had numbness and weakness of left hand, on aspirin and simvastatin Chronic lymphocytic leukemia - diagnosed in May 2017, follows with Dr. Varun Velasco, appointment in August Surgeries - tonsillectomy, hernia repair and left carotid endarterectomy Family History Heart disease Hypertension Heart disease - Father had PA in his 70's HTN - Mother and Father Cancer- Brother had colon cancer Stroke - father and mother Social History Smoking Status: Former Smoker (1/2 pack for up to 50 years) Alcohol Use: occasionally (1 drink daily) Drug Use: none Marital Status: Housing Status: lives alone Occupation Status: retired Allergies Coded Allergies: KVNG Inhibitors (Verified Allergy, Mild, COUGH, 07/10/17) Codeine (Verified Allergy, Mild, nasuea, 07/26/17) Home Medications Scheduled Aspirin (Aspirin), 325 MG PO QAM Atorvastatin (Lipitor), 40 MG PO QPM Fluticasone Propionate (Nasal) (Flonase Allergy Relief), 1 DOSE NA DAILY Omeprazole (Prilosec), 20 MG PO DAILY Valsartan (Diovan), 160 MG PO QAM Scheduled PRN Ibuprofen (Advil), 200-600 MG PO Q4H PRN for Pain Current Inpatient Medications Current Inpatient Medications Medications (Trade) Dose Ordered Sig/Semaj Route Start Time Stop Time Status Last Admin Dose Admin Cefazolin Sodium 5 ml @ 1.667 mls/ min PREOP IV 07/26/17 06:00 07/26/17 18:00 07/26/17 08:13 1.667 MLS/MIN Sodium Chloride 1,000 ml @ 50 mls/hr Q20H IV 07/26/17 06:00 07/27/17 01:59 Lactated Ringer's 1,000 ml @ 15 mls/hr Q24H IV 07/26/17 06:00 07/27/17 05:59 07/26/17 07:00 15 MLS/HR Oxycodone/ Acetaminophen (Percocet 5-325mg Tab) `1-2 TABS FOR MODER... Q4H PRN PO 07/26/17 11:45 08/09/17 11:44 Ondansetron HCl (Zofran Inj) 4 mg Q6H PRN IV 07/26/17 11:45 08/25/17 11:44 Pantoprazole Sodium 40 mg/ Syringe 10 ml @ 5 mls/min DAILY@11 IV 07/27/17 11:00 08/26/17 10:59 Dextrose/Sodium Chloride 1,000 ml @ 125 mls/hr Q8H IV 07/26/17 11:41 08/25/17 11:40 Aspirin (Ecotrin Tab) 325 mg QAM PO 07/27/17 09:00 08/26/17 08:59 Atorvastatin Calcium (Lipitor Tab) 40 mg QPM PO 07/26/17 21:00 08/25/17 20:59 Fluticasone Propionate (Flonase Nasal [place]) 1 sprays DAILY NA 07/27/17 09:00 08/26/17 08:59 Valsartan (Diovan Tab) 160 mg QAM PO 07/27/17 09:00 08/26/17 08:59 Cefazolin Sodium 1000 mg/Syringe 5 ml @ 1.667 mls/ min Q8H IV 07/26/17 13:00 07/26/17 21:02 07/26/17 13:12 1.667 MLS/MIN Review of Systems Constitutional: + problem reported (mild pain around femoral incision site), No fever, No chills, No sweats Eyes: No worsening of vision, No diplopia ENT: No tinnitus, No trouble swallowing Respiratory: No cough, No sputum, No wheezing, No shortness of breath Cardiovascular: No chest pain, No orthopnea, No edema, No claudication, No palpitations Abdomen: No pain, No nausea, No vomiting, No diarrhea, No constipation Musculoskeletal: No joint pain, No muscle pain, No swelling, No calf pain Neurologic: No weakness, No numbness/tingling, No vertigo Hematologic / Lymphatic: No abnormal bleeding/bruising, No clotting problems Integumentary: No rash, No itch, No new/changing skin lesions Physical Exam Date Time Temp Pulse Resp B/P (MAP) Pulse Ox O2 Delivery O2 Flow Rate FiO2 07/26/17 06:35 36.5 73 20 178/112 97 Room Air General Appearance: well-appearing, WD/WN, other (laying flat in bed and can only go to 30 degrees) Eyes: PERRLA, no discharge, EOMI Neck: no tenderness, supple, no thyromegaly Respiratory: breath sounds normal, clear to auscultation, clear to percussion, no respiratory distress Cardiovasular: regular rate/rhythm, normal S1S2, no murmur, no rub, no JVD Abdomen: normal bowel sounds, no rebound, no masses, hernia (small left groin hernia (present before surgery)), other (mild right lower quadrant abdominal pain) Upper Extremities: no edema, no deformity Lower Extremities: no edema, no deformity Pulses: radial (R) (2+), radial (L) (2+), dorsalis pedis (R) (2+), dorsalis pedis (L) (2+), posterior tibial (R), posterior tibial (L) (2+) Neuro: alert, oriented x 3, normal motor exam, normal sensation, normal speech Psychiatric: normal affect Laboratory Results Last 24 Hours Test 07/26/17 06:51 07/26/17 11:57 Sodium Level 142 mmol/L Potassium Level 3.5 mmol/L Chloride Level 107 mmol/L Carbon Dioxide Level 30 mmol/L Anion Gap 5.0 mmol/L Blood Urea Nitrogen 22 mg/dl Creatinine 0.97 mg/dl Est Creatinine Clear Calc Drug Dose 53.6 ml/min Estimated GFR () 85.7 Estimated GFR (Non- 73.9 BUN/Creatinine Ratio 22.8 Random Glucose 93 mg/dl Calcium Level 9.1 mg/dl Hemoglobin 10.9 g/dL Hematocrit 33.1 % Assessment & Plan 81 year old male with PMH of HTN, left carotid endarterectomy and stroke is being monitored in the ICU s/p TEVAR for 6.3cm descending thoracic aortic aneurysm NEURO cam negative pain well controlled percocet q4 prn for pain RESP incentive spirometry O2 via nurses protocol CARDIAC notify provider if HR>120, SBP <100 or >180 maintain MAP of 80-100 vital signs and vascular checks q4 hours may drain 10-15cc of spinal fluid to maintain spinal pressure between 12-15mmhg cardiac monitoring in ICU maintain head of bed <30 degrees continue aspirin, statin and valsartan tomorrow AM GI heart healthy diet pantoprazole IV for Gi prophylaxis starting tomorrow AM zofran prn for nausea setes with monitoring of I/O's IVF 125mls/hr q8 ID monitor for fever cefazolin IV q8 prophylactically wcc 13 post op HEME hgb 14.1 pre-op and 10.9 post op continue to monitor hgb post op CLL, follows with Dr. Reese as outpatient - next appointment in August DVT prophylaxis- SCD's FULL CODE Resident Physician Supervision Note: Dr. Person was resident physician during care of patient. I separately evaluated patient and did history and exam. I discussed the case with the resident and generally agree with the findings and plan. Documented By: Quoc Valadez DO
[2017-07-26] MEDS ORDERED: INFLUENZA VACCINE HIGH DOSE 65+ 0.5 ML SYR IM. ONE (14:45)
[2017-07-26] MEDS ORDERED: INFLUENZA ADMINISTRATION CHARGE ONE (14:45)
[2017-07-26] MEDS ORDERED: NURSING DECISION MEDICATION ORDER SCH ×2 (15:30→20:15)
[2017-07-26] MEDS ORDERED: CEFAZOLIN IV 1,000 MG in DEXTROSE 5% 50ML 50 ML IV SCH (16:00)
[2017-07-26] MEDS ORDERED: CEFAZOLIN IV 1,000 MG in SYRINGE 0 ML IV SCH (16:00)
[2017-07-26] MEDS ORDERED: SODIUM CHLORIDE 0.9% 500ML 500 ML IV PRN (17:00)
[2017-07-26] MEDS: ATORVASTATIN 40 MG TAB PO SCH (20:38)
[2017-07-26] MEDS: IBUPROFEN 200 MG TAB PO PRN (20:38)
[2017-07-26] MEDS: ONDANSETRON INJ 2 MG/ML 2 ML VIAL IV PRN (21:02)
[2017-07-26] MEDS ORDERED: SODIUM CHLORIDE 0.9% 500ML 500 ML IV SCH (23:45)
[2017-07-26] MEDS ORDERED: CALCIUM CARBONATE 500 MG CHEWABLE PO PRN (23:45)
[2017-07-26] MEDS ORDERED: NURSING VERBAL MED ORDER ONE ×2 (23:45)
[2017-07-27] VITALS (24 sets, daily range): BP systolic 120–182; BP diastolic 54–104; PULSE 83–99; TEMP 36.7–38.2; O2SAT 91–98
[2017-07-27] MEDS: CALCIUM CARBONATE 500 MG CHEWABLE PO PRN ×3 (00:01→03:09)
[2017-07-27] MEDS: IBUPROFEN 200 MG TAB PO PRN ×2 (03:09→21:00)
[2017-07-27] MEDS: D5W AND 1/2NSS 1,000 ML IV SCH ×2 (03:11→11:41)
[2017-07-27] MEDS ORDERED: SODIUM CHLORIDE 0.9% 500ML 500 ML IV SCH (04:00)
[2017-07-27] MEDS ORDERED: NURSING VERBAL MED ORDER ONE (04:00)
[2017-07-27 04:20] LABS: BUN/CREATININE RATIO 18.4 (10-20); CALCIUM 7.9 mg/dl (8.5-10.1); CREATININE 1.07 mg/dl (0.60-1.40); POTASSIUM 3.5 mmol/L (3.5-5.1)
[2017-07-27] MEDS: OXYCODONE/ACETAMINOPHEN 5-325 TAB PO PRN (05:29)
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
[2017-07-27 07:42] LABS: MEAN CELL VOLUME 91.8 fL (80-100); MEAN CORPUSCULAR HEMOGLOBIN 30.8 pg (25-34); MEAN CORPUSCULAR HGB CONC 33.6 g/dl (32-36); MEAN PLATELET VOLUME 9.7 fL (7.4-10.4); PLATELET COUNT 142 K/uL (130-400); RED BLOOD COUNT 3.05 M/uL (4.7-6.1); WHITE BLOOD COUNT 17.11 K/uL (4.8-10.8)
[2017-07-27 08:12] LABS: PLATELET COUNT 123 K/uL (130-400)
[2017-07-27 08:23] LABS: INR 1.1 (0.9-1.1); PROTHROMBIN TIME (PATIENT) 11.5 SECONDS (9.0-12.0)
[2017-07-27] MEDS ORDERED: NON-FORMULARY MEDICATION (Omeprazole (Prilosec) 20 MG) PO SCH (09:00)
[2017-07-27 09:25] LABS: BASO % 0.1 %; BASO ABS # 0.02 K/uL (0-0.2); COMPLETE YES; IG% 0.3 %; LYMPH % 33.3 %; MONO % 8.4 %; NEUT % 57.9 %; SMUDGE CELLS PRESENT
[2017-07-27] MEDS: VALSARTAN 80 MG TAB PO SCH (10:27)
[2017-07-27] MEDS: FLUTICASONE PROPIONATE NA SPR 16 GM BTL SCH (10:27)
[2017-07-27] MEDS: PANTOprazole INJ 40 MG in SYRINGE 0 ML IV SCH (10:28)
[2017-07-27] MEDS: ASPIRIN 325 MG ECTAB PO SCH (10:51)
--- NOTE | 2017-07-27 11:09 | Anesthesiology Progress Note ---
Anesthesia Post Op Note Date & Time Jul 27, 2017 at 11:05 Vital Signs Pain Intensity: 0.0 Vital Signs Past 12 Hours Date Time Temp Pulse Resp B/P (MAP) Pulse Ox O2 Delivery O2 Flow Rate FiO2 07/27/17 10:00 86 21 149/63 (91) 96 Nasal Cannula 3.0 07/27/17 10:00 96 Nasal Cannula 3.0 07/27/17 09:30 36.8 90 21 163/68 97 3.0 07/27/17 09:17 36.7 90 16 140/62 95 3.0 07/27/17 09:00 96 Nasal Cannula 3.0 07/27/17 08:00 Nasal Cannula 3.0 07/27/17 08:00 98 Nasal Cannula 3.0 07/27/17 08:00 36.8 99 24 178/85 (116) 95 Nasal Cannula 3.0 150/70 (96) 07/27/17 08:00 Nasal Cannula 07/27/17 06:15 97 Nasal Cannula 3.0 07/27/17 05:57 94 20 138/62 (87) 97 07/27/17 05:57 97 Nasal Cannula 3.0 07/27/17 05:00 97 Nasal Cannula 3.0 07/27/17 05:00 99 20 156/70 (101) 96 07/27/17 04:00 36.9 89 20 134/62 (87) 97 07/27/17 04:00 97 Nasal Cannula 3.0 07/27/17 04:00 97 Nasal Cannula 3.0 07/27/17 03:22 89 20 97 07/27/17 03:01 97 22 134/62 (87) 96 133/104 07/27/17 03:01 36.9 97 22 134/62 (86) 96 Nasal Cannula 3.0 07/27/17 03:00 95 20 123/54 (78) 97 07/27/17 03:00 97 Nasal Cannula 3.0 07/27/17 02:30 90 20 153/69 (97) 98 Nasal Cannula 3.0 07/27/17 02:01 89 21 147/64 (91) 98 Nasal Cannula 3.0 07/27/17 02:01 89 21 147/64 (93) 98 143/94 07/27/17 02:00 97 Nasal Cannula 3.0 07/27/17 02:00 91 22 146/60 (88) 97 Nasal Cannula 3.0 07/27/17 01:01 88 24 141/58 (85) 95 Nasal Cannula 3.0 07/27/17 01:01 88 24 141/58 (87) 95 131/89 07/27/17 01:00 97 Nasal Cannula 3.0 07/27/17 00:30 87 15 145/66 (92) 96 Nasal Cannula 3.0 07/27/17 00:15 90 22 130/60 (84) 97 07/27/17 00:01 97 Nasal Cannula 3.0 07/26/17 23:59 97 Nasal Cannula 3.0 07/26/17 23:30 91 23 135/67 (89) 97 Nasal Cannula 3.0 133/70 (91) Notes Mental Status: alert / awake / arousable, participated in evaluation Pt Amnestic to Procedure: Yes Nausea / Vomiting: adequately controlled Pain: adequately controlled Airway Patency, RR, SpO2: stable & adequate BP & HR: stable & adequate Hydration State: stable & adequate Anesthetic Complications: no major complications apparent Pt seen in SICU. Awake, alert, oriented and stable. Intrathecal drain removed as per discussion with surgeon. Tip intact. Site cleansed with sterile saline and Band-aid applied. No anesthesia related complications noted. Pt may ambulate or other activity ad chandra and further care as per surgeon.
[2017-07-27] MEDS: ONDANSETRON INJ 2 MG/ML 2 ML VIAL IV PRN (12:08)
--- NOTE | 2017-07-27 12:16 | Critical Care Progress Note ---
Critical Care Progress Note Date of Service Jul 27, 2017. ICU Day ICU Day Number: [address] Valadez Subjective 81 year old male had a TEVAR of descending thoracic aortic aneurysm yesterday with spinal pressure monitoring post op He had his spinal pressure monitor removed this morning by anesthesia. His pain has been well controlled and he has only had to receive one percocet overnight. His blood pressure and heart rate have remained well controlled and his neurovascular status has remained intact. His blood sugars have been mildly elevated overnight and the patient has continued to receive D5W fluids overnight. He says that he still has mild pain around his femoral insertion site. Patient denies any chest pain, palpitations, shortness of breath, cough, diarrhea, vomiting, leg weakness, leg numbness, back pain, calf pain, fevers, chills or sweats Objective General Appearance: well-appearing, WD/WN Eyes: PERRLA, no discharge, EOMI Neck: no tenderness, supple, no thyromegaly Respiratory: breath sounds normal, clear to auscultation, clear to percussion, no respiratory distress Cardiovasular: regular rate/rhythm, normal S1S2, no murmur, no rub, no JVD Abdomen: normal bowel sounds, no rebound, no masses, hernia (small left groin hernia (present before surgery)) Upper Extremities: no edema, no deformity Lower Extremities: no edema, no deformity Pulses: radial (R) (2+), radial (L) (2+), dorsalis pedis (R) (2+), dorsalis pedis (L) (2+), posterior tibial (R), posterior tibial (L) (2+) Neuro: alert, oriented x 3, normal motor exam, normal sensation, normal speech Psychiatric: normal affect Current SOFA Score SOFA Score Response (Comments) Value Platelets (x10) < 150 1 Bilirubin (mg/dL) < 1.2 (unknown as only bmp ordered) 0 Madeline Coma Score 15 0 Level of Hypotension No Hypotension 0 Creatinine (mg/dL) < 1.2 0 Total 1 Assessment & Plan 81 year old male with PMH of HTN, left carotid endarterectomy and stroke is being monitored in the ICU s/p TEVAR for 6.3cm descending thoracic aortic aneurysm. POD #1 1) Recommend stopping pantoprazole IV as patient does not take any medication at home. Can consider switching to PO 2) Recommend stopping D5 fluids with elevated glucose overnight. Can consider switching to normosol if continued IV fluids needed as seen by primary team 3) Recommend rechecking Hgb this afternoon has Hgb continues to drop this morning to 9.4 NEURO cam negative pain well controlled percocet q4 prn for pain RESP incentive spirometry O2 via nurses protocol CARDIAC notify provider if HR>120, SBP <100 or >180 maintain MAP of 80-100 vital signs and vascular checks q4 hours spinal drain removed this morning cardiac monitoring in ICU continue aspirin, statin and valsartan today GI heart healthy diet pantoprazole IV for Gi prophylaxis starting today, recommend stopping or switching to PO zofran prn for nausea estes with monitoring of I/O's D5 IVF 125mls/hr q8, recommend changing fluid as patient taking good PO and blood glucose elevated overnight ID monitor for fever, afebrile overnight cefazolin IV q8 prophylactically wcc 17 today HEME hgb 9.4 this morning, recommend rechecking Hgb this afternoon to assess for hgb stability currently receiving 1 unit of PRBC CLL, follows with Dr. Reese as outpatient - next appointment in August DVT prophylaxis- SCD's FULL CODE Resident Physician Supervision Note: Dr. Person was resident physician during care of patient. I separately evaluated patient and did history and exam. I discussed the case with the resident and generally agree with the findings and plan. Documented By: Quoc Valadez DO Consults & Procedures Consultants: Dr. Ortez- vascular Dr. Valadez- bag maker Procedures: TEVAR and Right femoral graft Data Medications: Current Inpatient Medications Medications (Trade) Dose Ordered Sig/Semaj Route Start Time Stop Time Status Last Admin Dose Admin Oxycodone/ Acetaminophen (Percocet 5-325mg Tab) `1-2 TABS FOR MODER... Q4H PRN PO 07/26/17 11:45 08/09/17 11:44 07/27/17 05:29 1 TAB Ondansetron HCl (Zofran Inj) 4 mg Q6H PRN IV 07/26/17 11:45 08/25/17 11:44 07/26/17 21:02 4 MG Pantoprazole Sodium 40 mg/ Syringe 10 ml @ 5 mls/min DAILY@11 IV 07/27/17 11:00 08/26/17 10:59 07/27/17 10:28 5 MLS/MIN Dextrose/Sodium Chloride 1,000 ml @ 125 mls/hr Q8H IV 07/26/17 11:41 08/25/17 11:40 07/27/17 03:11 125 MLS/HR Aspirin (Ecotrin Tab) 325 mg QAM PO 07/27/17 09:00 08/26/17 08:59 07/27/17 10:51 325 MG Atorvastatin Calcium (Lipitor Tab) 40 mg QPM PO 07/26/17 21:00 08/25/17 20:59 07/26/17 20:38 40 MG Fluticasone Propionate (Flonase Nasal [place]) 1 sprays DAILY NA 07/27/17 09:00 08/26/17 08:59 07/27/17 10:27 1 SPRAYS Valsartan (Diovan Tab) 160 mg QAM PO 07/27/17 09:00 08/26/17 08:59 07/27/17 10:27 160 MG Ibuprofen (Advil Tab) 400 mg Q6H PRN PO 07/26/17 20:30 08/25/17 20:29 07/27/17 03:09 400 MG Calcium Carbonate (Tums Chew Tab) 1-2 TABS Q2H PRN PO 07/26/17 23:45 08/25/17 23:44 07/27/17 03:09 1,000 MG I & O: 24-Hour Column 07/28/17 08:00 Output Total 0 ml Balance 0 ml Vital Signs: Date Time Temp Pulse Resp B/P (MAP) Pulse Ox O2 Delivery O2 Flow Rate FiO2 07/27/17 10:00 86 21 149/63 (91) 96 Nasal Cannula 3.0 07/27/17 10:00 96 Nasal Cannula 3.0 07/27/17 09:30 36.8 90 21 163/68 97 3.0 07/27/17 09:17 36.7 90 16 140/62 95 3.0 07/27/17 09:00 96 Nasal Cannula 3.0 07/27/17 08:00 Nasal Cannula 3.0 07/27/17 08:00 98 Nasal Cannula 3.0 07/27/17 08:00 36.8 99 24 178/85 (116) 95 Nasal Cannula 3.0 150/70 (96) 07/27/17 08:00 Nasal Cannula 07/27/17 06:15 97 Nasal Cannula 3.0 07/27/17 05:57 94 20 138/62 (87) 97 07/27/17 05:57 97 Nasal Cannula 3.0 07/27/17 05:00 97 Nasal Cannula 3.0 07/27/17 05:00 99 20 156/70 (101) 96 07/27/17 04:00 36.9 89 20 134/62 (87) 97 07/27/17 04:00 97 Nasal Cannula 3.0 07/27/17 04:00 97 Nasal Cannula 3.0 07/27/17 03:22 89 20 97 07/27/17 03:01 97 22 134/62 (87) 96 133/104 07/27/17 03:01 36.9 97 22 134/62 (86) 96 Nasal Cannula 3.0 07/27/17 03:00 95 20 123/54 (78) 97 07/27/17 03:00 97 Nasal Cannula 3.0 07/27/17 02:30 90 20 153/69 (97) 98 Nasal Cannula 3.0 07/27/17 02:01 89 21 147/64 (91) 98 Nasal Cannula 3.0 07/27/17 02:01 89 21 147/64 (93) 98 143/94 07/27/17 02:00 97 Nasal Cannula 3.0 07/27/17 02:00 91 22 146/60 (88) 97 Nasal Cannula 3.0 07/27/17 01:01 88 24 141/58 (85) 95 Nasal Cannula 3.0 07/27/17 01:01 88 24 141/58 (87) 95 131/89 07/27/17 01:00 97 Nasal Cannula 3.0 07/27/17 00:30 87 15 145/66 (92) 96 Nasal Cannula 3.0 07/27/17 00:15 90 22 130/60 (84) 97 07/27/17 00:01 97 Nasal Cannula 3.0 07/26/17 23:59 97 Nasal Cannula 3.0 07/26/17 23:30 91 23 135/67 (89) 97 Nasal Cannula 3.0 133/70 (91) 07/26/17 23:00 97 Nasal Cannula 3.0 07/26/17 23:00 36.7 97 23 117/59 (80) 97 07/26/17 22:00 97 Nasal Cannula 3.0 07/26/17 22:00 89 18 126/62 (83) 97 Nasal Cannula 3.0 133/70 (91) 07/26/17 21:00 98 Nasal Cannula 3.0 07/26/17 21:00 81 18 126/60 (82) 98 Nasal Cannula 3.0 117/79 (92) 07/26/17 20:00 99 Nasal Cannula 3.0 07/26/17 20:00 99 Nasal Cannula 3.0 07/26/17 20:00 36.7 82 20 130/64 (86) 99 Nasal Cannula 3.0 126/73 (90) 07/26/17 19:00 76 22 128/60 (82) 98 Nasal Cannula 3.0 07/26/17 19:00 98 Nasal Cannula 3.0 07/26/17 18:00 97 Nasal Cannula 3.0 07/26/17 18:00 81 18 120/63 (82) 98 Nasal Cannula 3.0 07/26/17 17:00 80 18 132/68 (89) 100 Nasal Cannula 4.0 110/77 (88) 07/26/17 17:00 100 Nasal Cannula 4.0 07/26/17 16:00 36.3 60 18 124/58 (80) 97 Nasal Cannula 4.0 123/64 (83) 07/26/17 16:00 100 Nasal Cannula 4.0 07/26/17 16:00 100 Nasal Cannula 4.0 07/26/17 15:00 100 Nasal Cannula 4.0 07/26/17 15:00 74 12 108/56 (73) 100 Nasal Cannula 4.0 112/63 (79) 07/26/17 14:00 100 Oxymask 8.0 07/26/17 13:00 100 Oxymask 12.0 07/26/17 12:20 52 16 134/60 (87) 99 Oxymask 15 07/26/17 12:10 51 18 126/55 (80) 98 Oxymask 15 07/26/17 12:00 52 18 102/58 (65) 96 Oxymask 15 07/26/17 12:00 96 Oxymask 15.0 Laboratory Results: Last 24 Hours Test 07/26/17 13:59 07/26/17 16:32 07/26/17 20:02 07/27/17 03:53 Bedside Glucose 143 mg/dl 185 mg/dl 194 mg/dl White Blood Count 17.11 K/uL Red Blood Count 3.05 M/uL Hemoglobin 9.4 g/dL Hematocrit 28.0 % Mean Corpuscular Volume 91.8 fL Mean Corpuscular Hemoglobin 30.8 pg Mean Corpuscular Hemoglobin Concent 33.6 g/dl Platelet Count 142 K/uL Mean Platelet Volume 9.7 fL Neutrophils (%) (Auto) 57.9 % Lymphocytes (%) (Auto) 33.3 % Monocytes (%) (Auto) 8.4 % Eosinophils (%) (Auto) 0.0 % Basophils (%) (Auto) 0.1 % Neutrophils # (Auto) 9.91 K/uL Lymphocytes # (Auto) 5.70 K/uL Monocytes # (Auto) 1.43 K/uL Eosinophils # (Auto) 0.00 K/uL Basophils # (Auto) 0.02 K/uL RDW Standard Deviation 48.3 fL RDW Coefficient of Variation 14.5 % Immature Granulocyte % (Auto) 0.3 % Immature Granulocyte # (Auto) 0.05 K/uL Smudge Cells PRESENT Basophilic Stippling 1+ Activated Partial Thromboplast Time 25.5 SECONDS Partial Thromboplastin Ratio 1.0 Sodium Level 140 mmol/L Potassium Level 3.5 mmol/L Chloride Level 106 mmol/L Carbon Dioxide Level 26 mmol/L Anion Gap 8.0 mmol/L Blood Urea Nitrogen 20 mg/dl Creatinine 1.07 mg/dl Est Creatinine Clear Calc Drug Dose 48.6 ml/min Estimated GFR () 76.1 Estimated GFR (Non- 65.7 BUN/Creatinine Ratio 18.4 Random Glucose 169 mg/dl Calcium Level 7.9 mg/dl Test 07/27/17 08:01 07/27/17 11:42 Platelet Count 123 K/uL Prothrombin Time 11.5 SECONDS Prothromb Time International Ratio 1.1 Bedside Glucose 117 mg/dl
[2017-07-27] MEDS: ATORVASTATIN 40 MG TAB PO SCH (21:02)
[2017-07-28 00:03] VITALS: BP 120/58; PULSE 85; TEMP 38.2; O2SAT 91
[2017-07-28 00:45] VITALS: TEMP 37
[2017-07-28 04:20] VITALS: BP 157/73; PULSE 71; TEMP 36.8; O2SAT 91
[2017-07-28] MEDS: OXYCODONE/ACETAMINOPHEN 5-325 TAB PO PRN (05:52)
[2017-07-28 07:17] LABS: HEMATOCRIT 27.8 % (42-52); MEAN CELL VOLUME 90.6 fL (80-100); MEAN CORPUSCULAR HEMOGLOBIN 30.3 pg (25-34); MEAN CORPUSCULAR HGB CONC 33.5 g/dl (32-36); MEAN PLATELET VOLUME 9.8 fL (7.4-10.4); PLATELET COUNT 108 K/uL (130-400); RED BLOOD COUNT 3.07 M/uL (4.7-6.1); WHITE BLOOD COUNT 16.38 K/uL (4.8-10.8)
[2017-07-28 07:46] LABS: BUN/CREATININE RATIO 17.6 (10-20); CALCIUM 8.5 mg/dl (8.5-10.1); CREATININE 0.9 mg/dl (0.60-1.40); POTASSIUM 3.4 mmol/L (3.5-5.1)
[2017-07-28 08:02] LABS: BASO % 0.2 %; BASO ABS # 0.04 K/uL (0-0.2); COMPLETE YES; EOS % 1.5 %; IG% 0.2 %; LYMPH % 34.2 %; MONO % 9.2 %; NEUT % 54.7 %; SMUDGE CELLS PRESENT
[2017-07-28 08:11] VITALS: BP 130/70; PULSE 75; TEMP 36.9; O2SAT 90
[2017-07-28] MEDS: VALSARTAN 80 MG TAB PO SCH (08:23)
[2017-07-28] MEDS: ASPIRIN 325 MG ECTAB PO SCH (08:23)
[2017-07-28] MEDS: PANTOprazole INJ 40 MG in SYRINGE 0 ML IV SCH (08:23)
[2017-07-28] MEDS: FLUTICASONE PROPIONATE NA SPR 16 GM BTL SCH (08:24)
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
[2017-07-28] MEDS ORDERED: OXYC-57 PO (10:08)
--- NOTE | 2017-07-28 10:10 | Discharge Instructions ---
Discharge Instructions Date of Service Jul 28, 2017. 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 Instructions / Follow-Up Instructions / Follow-Up SPECIAL CARE INSTRUCTIONS: Medications: * Continue to take your medications as directed. Incision/Puncture Site Care: * You will have an incision or puncture in each of your groins. Liquid glue will be used to seal your incisions/puncture site. This will lift off as the incisions/ puncture sites heal. * If Liquid glue is not used, there will be small dressings covering your incisions. After you get home, you may remove the dressings and shower - allowing the warm soapy water to run over it. * Be sure to dry the sites well and keep them dry. * DO NOT SOAK IN A TUB/POOL/etc. UNTIL ALL SURGICAL SITES ARE HEALED. DO NOT REMOVE THE GLUE UNTIL THE INCISIONS HEAL. Restrictions: * Limit yourself to clinical nutritionist activity for the first week. * You may walk and go up and down steps. * Avoid excessive bending or movement at the level of the incisions or punctures. Risks and Possible Complications: * Infection/Drainage/Bleeding - Drainage or bleeding from the incisions/ puncture site should be minimal. If you have excessive bleeding or drainage, call our office ([phone]) right away. * Pain/Numbness - You may experience some mild pain or soreness at your incision sites. You may also have some numbness around the incisions or into the insides of your thighs. Bruising is normal and should resolve within 2 weeks. * Changes in Appetite or Bowel Habits - Mostly related to anesthesia and pain medication, some patients have reported decreased appetite and/or problems with constipation. These symptoms usually improve over a few weeks. Remembering to take an [id number] stool softener, as directed, will help you to avoid constipation. Call our office and seek emergent treatment if you develop: * Fever or chills * Have a temperature greater than 101 degrees F * Any redness or purulent drainage from your incisions or punctures * Severe abdominal, chest or back pain SKIN IRRITATION: * You may experience some redness and/or swelling in the area where radiation was administered. If any skin irritation occurs, please contact your family physician. You will be receiving a call from the Vascular Surgery Nurse after you are discharged. FOLLOW UP VISIT: It is important for you to keep your follow up appointments with your medical provider. Keep any scheduled doctor appointments. Current Hospital Diet Patient's current hospital diet: AHA Diet (Heart Healthy) Discharge Diet Recommended Diet: AHA Diet (Heart Healthy) Procedures Procedures Performed: Thoracic Endovascular Repair of Thoracic Aortic Aneurysm, Open Right Femoral Exposure, Repair Right Femoral Artery Interposition Graft, Bilateral Cannulation of the Aorta Pending Studies Studies pending at discharge: no Laboratory Results Lipid Panel Test 05/09/17 09:07 Range/Units Triglycerides Level 140 0-150 mg/dl Cholesterol Level 150 0-200 mg/dl HDL Cholesterol 60 mg/dl Cholesterol/HDL Ratio 2.5 LDL Cholesterol, Calculated 62 mg/dl Medical Emergencies . Who to Call and When: Medical Emergencies: If at any time you feel your situation is an emergency, please call 911 immediately. . Non-Emergent Contact Non-Emergency issues call your: Surgeon . "Provider Documentation" section prepared by Deshawn Ortez. . VTE Core Measure Inpt VTE Proph given/why not?: Enoxaparin (Lovenox)SQ, SCD's [place] Drug Monitoring Program Search Results: no issues identified
--- NOTE | 2017-07-28 10:16 | Clinical Documentation Query ---
CLINICAL DOCUMENTATION QUERY Dr. GALAVIZ, In your clinical opinion is this patient being managed for: ( ) Acute blood loss anemia ( ) Not Agree ( ) Other explanation of clinical findings (Please Explain) ( ) Unable to determine (Please Define) ( ) Need to Discuss The medical record reflects the following clinical findings, treatment, and risk factors. Clinical Indicators: 81 yo male presenting with a thoracic aortic aneurysm for a TEVAR. Initial Hgb 14.1, Hct 41.9, dropping to 9.4/28 with an EBL of 250 cc per anesthesia record. Treatment: IV fluids, serial CBC's, transfuse 1 U PRBC Risk Factors: surgical blood loss Please clarify and document your clinical opinion in the progress notes and discharge summary. Terms such as "probable", "suspected", "likely", "questionable", "possible", or "still to be ruled out" are acceptable. IF IN AGREEMENT, YOU MUST DOCUMENT ABOVE DIAGNOSTIC STATEMENT IN DAILY PROGRESS NOTES AND DISCHARGE SUMMARY. This document is not part of the patient's record. Thank You, Essie Novak, BRANDEN [phone]
[2017-07-28 11:44] VITALS: BP 130/70; PULSE 75; TEMP 36.9; O2SAT 90
--- NOTE | 2017-08-08 09:37 | DISCHARGE SUMMARY ---
ADMISSION DIAGNOSIS: Thoracic aortic aneurysm. DISCHARGE DIAGNOSES: 1. Status post thoracic endovascular aneurysm repair. 2. Thoracic aortic aneurysm. DISCHARGE CONDITION: Stable. CONSULTATIONS IN THE HOSPITAL: Included critical care. PROCEDURES IN THE HOSPITAL: Included his endovascular thoracic aneurysm repair performed on 07/26/2017 with an EBL of 250 mL and no significant complications. HISTORY OF PRESENT ILLNESS: Mr. Kline is a 81-year-old male who was admitted to the hospital for hypotension approximately a month prior. He was found to have a lymphocytosis and he was diagnosed with chronic lymphocytic leukemia. At that time he underwent CT scanning which demonstrated a 6.3 cm thoracic aortic aneurysm and he was referred to Dr. Ortez for evaluation. Upon review of the films, it was determined that an endovascular approach would be beneficial for patient. Risks, benefits, and alternatives were discussed with the patient. He expressed understanding and agreement to proceed. HOSPITAL COURSE: The patient was admitted after undergoing his thoracic endovascular aortic aneurysm repair. This was performed without significant complications. He did have some blood loss at 250 mL and his hemoglobin after the procedure was 9.4. He was transfused 1 unit. He remained essentially stable; however, and his spinal drain removed on postop day 1. He was felt to be stable enough for discharge on postop day 2. PHYSICAL EXAMINATION: VITAL SIGNS: On day of discharge, vital signs were as follows: Temperature of 36.9, pulse 75, respiratory rate of 16, blood pressure of 130/70, and pulse oximetry of 90% on room air. CONSTITUTIONAL AND GENERAL: The patient is a mildly chronically ill appearing elderly male in no acute distress. He ambulated without assistance and is active, alert and oriented x4 with normal recent and remote memory. HEAD: Normocephalic and atraumatic. EYES: EOMI. ENT: Demonstrated no hearing loss, rhinorrhea or pharyngeal erythema. NECK: Supple, nontender with a midline trachea without masses or crepitus. LUNGS: Demonstrated no dyspnea. They were decreased somewhat throughout due to his smoking history but are clear. CARDIOVASCULAR: Heart demonstrated regular rhythm apart from his chronic atrial fibrillation. There were no murmurs noted. He had full and equal pulses in all extremities unless otherwise noted, specifically they were normal in his carotid, brachial, radial and femoral pulses. Lower extremity distal pulses were +1. There was brisk capillary refill and no sign of distal ischemia. ABDOMEN: Soft, nontender with normoactive bowel sounds in all 4 quadrants without guarding or rebound. There was no flank or CVA tenderness. EXTREMITIES: His bilateral upper extremities demonstrate no cyanosis, edema, clubbing, varicosities or ulcers. His bilateral groin surgical puncture sites did demonstrate some swelling and tenderness and some mild local ecchymosis, but no large hematoma noted. NEUROLOGIC: The patient has grossly intact cranial nerves and grossly intact sensation without any focal deficits. DIET UPON DISCHARGE: Should be a low-cholesterol AHA diet. MEDICATIONS: Reconciled in the chart and are as per the discharge instructions. FOLLOWUP: Should be with Dr. Ortez or his PA Steph Aceves with 2 weeks for reevaluation and staple removal from his right groin. The patient was advised to call the office with any other questions.
== END 2017-07-28 13:00 | disposition home or self-care (01) | DRG 220 ==
LOC: C.ACU 06:06 → C.MSICU 07:49 → C.2T 07-27 16:06
PROVIDERS: ADMIT Surgery Vascular Surgery; ATTEND Surgery Vascular Surgery
PROC: 04CK3ZZ Extirpation of Matter from Right Femoral Artery, Percutaneous Approach (ICD-10-PCS; principal; 2017-07-26 08:00)
PROC: 02VW3DZ Restriction of Thoracic Aorta, Descending with Intraluminal Device, Percutaneous Approach (ICD-10-PCS; principal; 2017-07-26 08:00)
PROC: 04UK3JZ Supplement Right Femoral Artery with Synthetic Substitute, Percutaneous Approach (ICD-10-PCS; principal; 2017-07-26 08:00)
DX: I71.2 Thoracic aortic aneurysm, without rupture (principal); C91.10 Chronic lymphocytic leukemia of B-cell type not having achieved remission; I10 Essential (primary) hypertension; I25.10 Atherosclerotic heart disease of native coronary artery without angina pectoris; Z79.82 Long term (current) use of aspirin; Z79.899 Other long term (current) drug therapy; Z86.73 Personal history of transient ischemic attack (TIA), and cerebral infarction without residual deficits; Z87.891 Personal history of nicotine dependence

== ENCOUNTER → 2017-08-15 | Outpatient (CLI) | payer BC ==
[~2017-08-15] MED LIST changes: -CEFAZOLIN 1000MG IV PUSH 5 ML IV SCH; -LACTATED RINGER'S 1000ML 1,000 ML IV SCH; +OXYC-57 PO; -SODIUM CHLORIDE 0.9% 1000ML 1,000 ML IV SCH
[2017-08-15 16:33] LABS: BASO % 0.4 %; BASO ABS # 0.04 K/uL (0-0.2); COMPLETE YES; EOS % 3.6 %; IG% 0.1 %; LYMPH % 48.1 %; MEAN CELL VOLUME 94.2 fL (80-100); MEAN CORPUSCULAR HEMOGLOBIN 29.8 pg (25-34); MEAN CORPUSCULAR HGB CONC 31.7 g/dl (32-36); MEAN PLATELET VOLUME 9.1 fL (7.4-10.4); NEUT % 37.8 %; PLATELET COUNT 311 K/uL (130-400); RED BLOOD COUNT 3.82 M/uL (4.7-6.1); WHITE BLOOD COUNT 9.78 K/uL (4.8-10.8)
[2017-08-15 17:09] LABS: ALT/SGPT 21 U/L (12-78); AST/SGOT 13 U/L (15-37); BLOOD UREA NITROGEN 23 mg/dl (7-18); CALCIUM 8.9 mg/dl (8.5-10.1); CARBON DIOXIDE 29 mmol/L (21-32); CHLORIDE 105 mmol/L (98-107); CREATININE 0.94 mg/dl (0.60-1.40); GLUCOSE 112 mg/dl (70-99); POTASSIUM 3.4 mmol/L (3.5-5.1); SODIUM 141 mmol/L (136-145)
[2017-08-15 17:12] LABS: ALKALINE PHOSPHATASE 81 U/L (45-117)
== END | disposition home or self-care (01) ==
LOC: C.LAB1850 15:38
PROVIDERS: ATTEND Internal Medicine Hematology & Oncology
DX: C91.10 Chronic lymphocytic leukemia of B-cell type not having achieved remission (principal)

== ENCOUNTER → 2017-08-18 | Outpatient (CLI) | payer BC ==
--- NOTE | 2017-08-18 12:07 | DIAGNOSTIC IMAGING REPORT ---
VENOUS DOPP LOWER EXT UNILAT HISTORY: 81 years-old Male M79.89 Right leg [id number] acute right lower extremity swelling COMPARISON: None available TECHNIQUE: Multiple real-time sonographic images of the right lower extremity deep venous structures were obtained assessing grayscale appearance and color flow FINDINGS: Nonspecific swelling of the lower extremity is present. Multiple lymph nodes are seen within the right inguinal region, largest of which measures 3.1 x 1.2 x 2.7 cm, mildly enlarged with thin cortex and normal-appearing fatty hilum. There is normal flow, compressibility, augmentation and phasicity of the right lower extremity deep venous structures. IMPRESSION: 1. No sonographic evidence of deep venous thrombosis. 2. Mild soft tissue swelling of the right lower extremity. 3. Nonspecific mildly enlarged right inguinal lymph node. The above report was generated using voice recognition software. It may contain grammatical, syntax or spelling errors. Electronically signed by: Tad Young M.D. 08/18/2017 12:05 PM Dictated Date/Time: 08/18/2017 12:04 PM
== END | disposition home or self-care (01) ==
LOC: C.ULTR 11:40
PROVIDERS: ATTEND Physician Assistant
DX: M79.89 Other specified soft tissue disorders (principal)

== ENCOUNTER → 2017-10-11 | Outpatient (CLI) | payer BC ==
[~2017-10-11] MED LIST changes: +OPTIRAY 320 IV PRN
--- NOTE | 2017-10-11 10:41 | DIAGNOSTIC IMAGING REPORT ---
CT ANGIOGRAM OF THE CHEST COMBO CLINICAL HISTORY: Status post endovascular repair of a thoracic aortic aneurysm. COMPARISON STUDY: Chest CT dated 05/10/2017. TECHNIQUE: Before and following the IV administration of 119 cc of Optiray 320, CT angiogram of the chest was performed from the thoracic inlet to the upper abdomen utilizing the stent graft protocol. Images are reviewed in the axial, sagittal, and coronal planes. 3-D MIPS images are created and assessed. IV contrast was administered without complication. A dose lowering technique was utilized adhering to the principles of ALARA. The Examination is degraded by motion artifact. CT DOSE: 590.18 mGy.cm FINDINGS: Thyroid: Imaged portions of the thyroid gland are normal in size and attenuation. Thoracic aorta: There is advanced atherosclerotic calcification of the thoracic aorta. There is diffuse ectasia of the thoracic aorta. The ascending thoracic aorta measures up to 4.1 cm in diameter in the arch measures up to 3.7 cm in diameter. The patient is status post stent graft repair of a descending thoracic aorta aneurysm. The stent graft originates distal to the left subclavian artery takeoff and terminates just above the diaphragmatic hiatus. The residual aneurysm sac measures 6.4 cm in AP diameter and 6.7 cm in transverse diameter. There is no evidence of endoleak. The arch demonstrates standard 3-vessel anatomy. The arch vessels are patent. No dissection is seen. Pulmonary vasculature: The pulmonary trunk is normal in caliber. There is no evidence of pulmonary embolus within main, lobar, or segmental pulmonary arteries. Heart: The heart is enlarged and without pericardial effusion. The coronary arteries are densely calcified. There is lipomatous hypertrophy of the interatrial septum. Lungs and pleural spaces: Evaluation of the lung parenchyma is modestly degraded by motion artifact. A small fat-containing Bochdalek hernia is present at both lung bases. Emphysema is observed. No airspace consolidation is seen typical for pneumonia and there is no pleural effusion. Dependent opacities at the right lung base likely represent atelectasis. Mild elevation of the right hemidiaphragm is unchanged. Secretions are noted in the trachea. Mediastinum: There are mildly enlarged mediastinal lymph nodes. A precarinal node on image #130 measures 1.4 cm in short axis. Megan: Clear. Axillae: Shotty axillary lymph nodes are somewhat a previous. Upper abdomen: Numerous cysts are present in the upper poles of both kidneys and measure up to 4.6 cm. Partially visualized upper abdominal viscera is within normal limits. Skeletal structures: The skeletal structures are osteopenic. No lytic or blastic bony lesions are seen. IMPRESSION: 1. Cardiomegaly and emphysema. 2. There is advanced atherosclerotic calcification and diffuse ectasia of the thoracic aorta as above. 3. The patient is status post stent graft repair of a descending thoracic aortic aneurysm. The residual aneurysm sac measures 6.4 x 6.7 cm. 4. No endoleak is identified. 5. There is no dissection. 6. The arch vessels are patent. 7. There is no evidence of pulmonary embolus in the main, lobar, or segmental pulmonary arteries.. 8. Mildly enlarged mediastinal lymph nodes are similar to previous. 9. Additional findings as above. Electronically signed by: Jason Francois M.D. 10/11/2017 10:40 AM Dictated Date/Time: 10/11/2017 10:31 AM
== END | disposition home or self-care (01) ==
LOC: C.CTS 09:49
PROVIDERS: ATTEND Surgery Vascular Surgery
DX: I71.2 Thoracic aortic aneurysm, without rupture (principal); I51.7 Cardiomegaly; J43.9 Emphysema, unspecified

== ENCOUNTER → 2018-04-18 | Outpatient (CLI) | payer BC ==
[~2018-04-18] MED LIST changes: +ASPECOTC PO; -ASPI325T45 PO; -OXYC-57 PO
--- NOTE | 2018-04-18 09:53 | DIAGNOSTIC IMAGING REPORT ---
CHEST COMBO ANGIOGRAPHY CLINICAL HISTORY: 82 years-old Male presenting with ^THORACIC AA. TECHNIQUE: Multidetector CT angiography of the chest was performed before and after the administration of intravenous contrast. 3-D volumetric, curved planar reformatted (CPR) images, and/or maximum intensity projection (MIP) images were subsequently reconstructed for review. IV contrast: 119 mL of Optiray 320. A dose lowering technique was used consistent with the principles of ALARA (as low as reasonably achievable). COMPARISON: 10/11/2017. CT DOSE (mGy.cm): The estimated cumulative dose is 622.50 mGy.cm. FINDINGS: Safety Patrol Officer topogram: Endograft stent in the descending thoracic aorta. Vasculature: The study is adequate for assessment of the aorta. Precontrast imaging again demonstrates significant occluded mural thrombus. The thoracic endograft stent extends from the proximal portion of the descending thoracic aorta well beyond the origin of the left subclavian artery to the distal descending thoracic aorta proximal to the aortic hiatus. The stent graft is modular with overlap in the proximal portion as on prior exam. At the site of overlap there is minimal incomplete apposition of the modular components (series 7 image 128), consistent with type IIIa endograft leak. The second site of modular overlap in the mid to distal portion maintains adequate apposition without evidence of an endoleak. Significant irregularity of the lumen of the left inferior lateral aspect of the proximal descending thoracic aorta immediately proximal to the stent (series 7 image 100), unchanged from prior. 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 Origins of the branch vessels of aortic arch are widely patent despite diffuse calcified and noncalcified atherosclerotic plaque. The ascending aorta is minimally ectatic, measuring 4.1 cm in diameter. The descending thoracic aortic aneurysm now measures 6.3 x 5.8 cm in maximal diameter, previously 6.6 x 5.9 cm when remeasured at a comparable level. Partially visualized abdominal aorta demonstrates significant atherosclerosis without evidence of aneurysmal dilatation. Allowing for timing of the contrast bolus, no gross evidence of a filling defect within the pulmonary arteries to suggest embolus. Main pulmonary artery is not enlarged. No flattening of the interventricular septum. No intracardiac filling defect. No reflux of contrast into the hepatic veins. Remaining chest: On soft tissue windows, normal thyroid and thoracic inlet. Significantly enlarged bilateral axillary, supraclavicular, and mediastinal lymphadenopathy as on prior exam. Multichamber enlargement of the heart. Coronary artery calcification. No pericardial or pleural effusion. Multiple renal cysts noted. Nonspecific thickening of the adrenal glands. Upper abdominal lymphadenopathy. On lung windows, extensive groundglass opacity and dependent portions of the right lower lobe. Mild apical predominant emphysema. Prominent paraseptal emphysema in the azygos esophageal recess. Minimal strand-like debris in the trachea. Bronchial wall thickening noted. On bone windows, osteoporotic deformities of the superior endplates of T10 and T11. Osteopenia. IMPRESSION: 1. Stable appearance of the 6.3 x 5.8 cm descending thoracic aortic aneurysm with an endograft stent in place. Minimal type III endograft leak due to incomplete apposition of modular components, which has not progressed from prior. 2. No gross evidence of central pulmonary embolism. 3. Extensive groundglass dependent opacities in the right lower lobe. Infection or aspiration can't be excluded though this may represent atelectasis. Correlate clinically. 4. Emphysema. 5. Osteopenia with osteoporotic deformities of the superior endplates of T10 and T11. Electronically signed by: Henry Ruano M.D. 04/18/2018 9:52 AM Dictated Date/Time: 04/18/2018 9:32 AM
== END | disposition home or self-care (01) ==
LOC: C.CTS 08:52
PROVIDERS: ATTEND Surgery Vascular Surgery
DX: I71.2 Thoracic aortic aneurysm, without rupture (principal); R91.8 Other nonspecific abnormal finding of lung field; J43.9 Emphysema, unspecified; M85.88 Other specified disorders of bone density and structure, other site

== ENCOUNTER 2019-05-24 08:53 | Inpatient (IN) ==
--- NOTE | 2019-05-20 09:04 | PAT Medication Instructions ---
Medication Instructions Date of Service May 20, 2019 Home Medications alendronate 70 mg PO WK aspirin 325 mg PO QAM atorvastatin 40 mg PO PM calcium carbonate-vitamin D3 [Calcium 600 + D(3)] 1 tab PO BID cholecalciferol (vitamin D3) [Vitamin D3] 2,000 unit PO QAM finasteride 5 mg PO QAM ibuprofen 200 - 400 mg PO Q6H NEEDED tamsulosin 0.4 mg PO QAM valsartan 160 mg PO QAM Continue as directed alendronate 70 mg PO WK ASK your surgeon for instructions aspirin 325 mg PO QAM ibuprofen 200 - 400 mg PO Q6H NEEDED DO NOT take the morning of surgery calcium carbonate-vitamin D3 [Calcium 600 + D(3)] 1 tab PO BID cholecalciferol (vitamin D3) [Vitamin D3] 2,000 unit PO QAM valsartan 160 mg PO QAM Take morning of surgery With a small sip of water, OTHERWISE NOTHING TO EAT OR DRINK AFTER MIDNIGHT: finasteride 5 mg PO QAM tamsulosin 0.4 mg PO QAM Take evening before surgery atorvastatin 40 mg PO PM calcium carbonate-vitamin D3 [Calcium 600 + D(3)] 1 tab PO BID Other Notes If you have any questions please call us at [phone] or [phone] or [phone] or [phone]
--- NOTE | 2019-05-20 09:06 | Anesthesiology Consultation ---
Date of Service May 20, 2019 Assessment & Plan (1) Encounter for pre-operative examination: Chart Review Chart Review: Acceptable Risk for Surgery and Patient seen in Pre Admission Testing Consults Requested none Teaching & Discussion Pre-Anesthesia Teaching/Discussion Notes: Instructed NPO after midnight before surgery, except medications with 15 cc of water. Medication instructions provided according to the PAT guidelines. History Surgery Operation Date: 05/24/19 11:05 Proposed Procedures p Thoracic Endovascular Aneurysm Repair, Restenting, Groin Cutdown - Deshawn Ortez MD Height/Weight Height: 5 ft 7 in Weight: 59.7 kg Allergies Allergy/AdvReac Type Severity Reaction Status Date / Time KVNG Inhibitors AdvReac Mild COUGH Verified 05/16/19 14:44 codeine AdvReac Mild nasuea Verified 05/16/19 14:44 Medications Home Medications Medication Instructions Recorded Confirmed Last Taken alendronate 70 mg PO WK 05/16/19 05/16/19 Unknown aspirin 325 mg PO QAM 05/16/19 05/16/19 Unknown atorvastatin 40 mg PO PM 05/16/19 05/16/19 Unknown calcium carbonate-vitamin D3 1 tab PO BID 05/16/19 05/16/19 Unknown [Calcium 600 + D(3)] cholecalciferol (vitamin D3) 2,000 unit PO QAM 05/16/19 05/16/19 Unknown [Vitamin D3] finasteride 5 mg PO QAM 05/16/19 05/16/19 Unknown ibuprofen 200 - 400 mg PO Q6H PRN 05/16/19 05/16/19 Unknown tamsulosin 0.4 mg PO QAM 05/16/19 05/16/19 Unknown valsartan 160 mg PO QAM 05/16/19 05/16/19 Unknown Past Medical History Medical History CLL (chronic lymphocytic leukemia) Right bundle branch block Osteoporosis Left renal mass Hypokalemia History of carotid artery disease status post left carotid endarterectomy Bilateral inguinal hernia CAD (coronary artery disease) Hearing deficit History of seizure R/T HYPOGLYCEMIC EPISODES. LAST 1989 History of stroke 2008 - NO RESIDUAL EFFECTS - [facility] Hx of carotid atherosclerosis Hyperlipidemia Hypertension Hypoglycemia Nausea and vomiting after administration of anesthetic agent Exercise / Class Metabolic Activity III < 4 Walking/Shop/Light housework (Still has limited activity from bilateral hip replacements last fall. Can climb stairs. Denies CP or SOB. ) Past Surgical History Surgical History H/O thoracic aortic aneurysm repair 03/26/17: MAC #3, ETT #7.5, HiLo Oral, Grade 2 View Hip fracture requiring operative repair LEFT 06/10/18: MAC#3, ETT#7.5, HiLo Oral, Grade 1 View History of carotid endarterectomy LEFT History of cataract surgery BOTH History of hernia surgery LEFT INGUINAL History of left hip replacement History of right hip replacement 08/18/18: MAC #3, ETT #7.5, HiLo, Grade 2 View with anterior pressure History of tonsillectomy Hx of nasal polypectomy Past Anesthesia History No Hx of Anesthesia Complications and No Family Hx of Anesthesia Complications History of PONV No Hx of Motion Sickness and History of PONV (Remote history. Not for 60-70 years. ) Social History Smoking Status: Former smoker Smoking cigarettes per day: <1/2 ppd x 50 years Do You Dip or Chew Tobacco: No Smoking End Date: 10 YR AGO Hx Alcohol Use: Yes Alcohol type: beer and wine alcohol intake frequency: 0-2 drinks per day Hx Substance Use: No substance use type: does not use Review of Systems Patient denies chest pain, shortness of breath, dyspnea on exertion, joint pain, reflux, cough, wheezing, palpitations. +Joint Pain (Knee, Leg Pain - not joints) Physical Exam Vital Signs BP: 162/70 P: 63 R: 16 T: 98.0 SPO2: 97% on RA ENMT Mouth: + poor dentition Thyromental Distance: > or= 3.5 Finger Breadths (3.5) Mallampati Class: II Upper and Lower Partials Neck normal visual inspection and trachea midline; neck extension not limited Respiratory normal respiratory effort Auscultation: lungs clear to auscultation bilaterally Cardiovascular Rate/Rhythm: regular rate and regular rhythm Heart Sounds: no murmur Neurologic moves all extremities Psychiatric Orientation: alert and oriented x 3 Testing Laboratory Results 05/20/19 09:43 05/20/19 09:43 PT 10.9 Seconds (9.0-12.0) 05/20/19 09:43 INR 1.1 (0.9-1.1) 05/20/19 09:43 APTT 25.2 Seconds (21.0-31.0) 05/20/19 09:43 Blood Type O Positive 05/20/19 09:43 Antibody Screen NEGATIVE 05/20/19 09:43 CBC consistent with patients diagnosis of CLL. Patient does follow with heme/onc. Dee at Dr. Ortez's office notified. Electrocardiogram Date: 08/21/18 Sinus rhythm @ 87 bpm with premature supraventricular complexes, some consecutive RBBB When compared with ECG of 08/17/18, Premature supraventricular complexes are now present Left anterior fascicular block is no longer present Chest X-Ray Date: 08/17/18 Findings: + NAD FINDINGS: Tortuous thoracic aorta with an indwelling stent. The lungs are considered clear. Diaphragms are smooth. IMPRESSION: No acute process. Echocardiogram Date: 06/10/18 EF: 60-65% Valvular Disease: + no significant valvular disease Stress Test Date: 06/20/17 Type: DSE Resting EF: 65-70% Normal LV size and systolic function with no RWMA Mild concentric LVH Normal LV wall motion response to Dobutamine LV becomes smaller and more vigorous with Dobutamine LV global function improves with Dobutamine CONCLUSIONS: Negative dobutamine stress EKG for ischemia at 95% MPHR Negative dobutamine stress Echo for ischemia at 95% MPHR. Hypotensive response to Dobutamine and atropine, NSS infusion increase to 500 ml/hr for b/p support. BP 112/60 in recover and the patient was asymptomatic. Other Testing Chest CTA 04/22/19 FINDINGS: Noncontrast images reveal no evidence of acute thoracic aortic hematoma. Postcontrast images reveal a descending thoracic aortic stent graft. The stent graft measures 4 cm in diameter. At the presumed junction of 2 stents, there is inward buckling of the medial aspect of the stent with a residual aortic lumen 26 mm. The [place] descending thoracic aortic aneurysm measures 6.3 cm. There is a stable ulcerated plaque arising from the lateral aspect of the aortic arch. There is mild ectasia of the ascending thoracic aorta which measures 41 mm. There are coronary artery calcifications. There are persistent enlarged mediastinal lymph nodes. An index precarinal lymph node measures 16 mm in short axis. An index subcarinal lymph node measures 17 mm in short axis. There are mildly enlarged right hilar lymph nodes. Axillary lymph nodes are the upper limits of normal in size. There is pulmonary emphysema with prominent blebs. There are no pleural effusions. There are stable right lower lobe airspace opacities, likely atelectatic. Multiple bilateral renal cysts are visualized. There are minor superior endplate compression deformities at the T10 and T11 vertebral bodies, unchanged. IMPRESSION: 1. 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 2. Stable ulcerated plaque arising from the lateral aspect of the aortic arch 3. Emphysema 4. Persistent right lower lobe opacities, statistically atelectatic 5. Mild adenopathy, similar to the prior study.
[2019-05-20 11:05] LABS: Hematocrit (blood only) 42.3 % (42-52); Hemoglobin 14.1 g/dL (14.0-18.0); Mean Corpuscular Hemoglobin 30.9 pg (25-34); Mean Corpuscular Hgb Conc 33.3 g/dL (32-36); Mean Corpuscular Volume 92.6 fL (80-100); Mean Platelet Volume 10.4 fL (7.4-10.4); Platelet Count 109 K/uL (130-400); RDW Coefficient of Variation 15.2 % (11.5-14.5); RDW Standard Deviation 51.2 fL (36.4-46.3); Red Blood Count 4.57 M/uL (4.7-6.1); White Blood Count 29.87 K/uL (4.8-10.8)
[2019-05-20 11:15] LABS: BUN Creatinine Ratio 21.1 (10-20); Calcium 9.2 mg/dl (8.5-10.1); Creatinine Clr Calc Pharmacy 37.3 ml/min; Est GFR (African American) 58.8; Est GFR (Non-African American) 50.7; INR 1.1 (0.9-1.1); Partial Thromboplastin Ratio 0.9; Partial Thromboplastin Time 25.2 Seconds (21.0-31.0); Potassium 3.3 mmol/L (3.5-5.1); Prothrombin Time 10.9 Seconds (9.0-12.0)
[2019-05-20 11:49] LABS: Basophils # (auto) 0.07 K/uL (0-0.2); Basophils % (auto) 0.2 %; Eosinophils # (auto) 0.49 K/uL (0-0.5); Eosinophils % (auto) 1.6 %; Immature Granulocytes # (auto) 0.04 K/uL (0.00-0.02); Immature Granulocytes % (auto) 0.1 %; Lymphocytes % (auto) 78.3 %; Monocytes # (auto) 0.88 K/uL (0.11-0.59); Monocytes % (auto) 2.9 %; Neutrophils # (auto) 4.99 K/uL (1.4-6.5); Neutrophils % (auto) 16.9 %; Smudge Cells Present
--- NOTE | 2019-05-24 06:15 | History & Physical Report ---
Date of Service May 24, 2019 Assessment & Plan (1) Status post thoracic aortic aneurysm repair: Patient is admitted for relining of his thoracic endograft to cover the birdbeaking. I have discussed the risks options and benefits of the procedure with the patient. The patient understands the risks options and benefits and agrees to the procedure. History of Present Illness Chief Complaint: Birdbeaking of TEVAR endograft Primary Care Provider: Christopher Kearns MD Mr. Kline is status post endovascular aneurysm repair in 2017. The patient was seen here last year in followup with a CT scan of his endograft at that time. This did not appear to show any significant abnormalities except a minimal amount of birdbeaing. The patient denies any major changes in his health since being seen here a year ago. He does state that he ambulates relatively slowly and has some mild hip, knee and ankle pain and is status post bilateral hip replacements. He denies any chest pain, shortness of breath, abdominal pain, nausea, vomiting, thigh or calf claudication, wounds, ulcerations or rest pain. The CTA performed prior to today's appointment of his endograft indicates an area of bird peaking which has progressed but no definite areas of endoleak. Allergies Allergy/AdvReac Type Severity Reaction Status Date / Time KVNG Inhibitors AdvReac Mild COUGH Verified 05/16/19 14:44 codeine AdvReac Mild nasuea Verified 05/16/19 14:44 Home Medications Home Medications Medication Instructions Recorded Confirmed Type alendronate 70 mg PO WK 05/16/19 05/16/19 History aspirin 325 mg PO QAM 05/16/19 05/16/19 History atorvastatin 40 mg PO PM 05/16/19 05/16/19 History calcium carbonate-vitamin D3 1 tab PO BID 05/16/19 05/16/19 History [Calcium 600 + D(3)] cholecalciferol (vitamin D3) 2,000 unit PO QAM 05/16/19 05/16/19 History [Vitamin D3] finasteride 5 mg PO QAM 05/16/19 05/16/19 History ibuprofen 200 - 400 mg PO Q6H PRN 05/16/19 05/16/19 History tamsulosin 0.4 mg PO QAM 05/16/19 05/16/19 History valsartan 160 mg PO QAM 05/16/19 05/16/19 History Past Med/Surg History Medical History CLL (chronic lymphocytic leukemia) Right bundle branch block Osteoporosis Left renal mass Hypokalemia History of carotid artery disease status post left carotid endarterectomy Bilateral inguinal hernia CAD (coronary artery disease) Hearing deficit History of seizure R/T HYPOGLYCEMIC EPISODES. LAST 1989 History of stroke 2008 - NO RESIDUAL EFFECTS - [facility] Hx of carotid atherosclerosis Hyperlipidemia Hypertension Hypoglycemia Surgical History H/O thoracic aortic aneurysm repair 03/26/17: MAC #3, ETT #7.5, HiLo Oral, Grade 2 View Hip fracture requiring operative repair LEFT 06/10/18: MAC#3, ETT#7.5, HiLo Oral, Grade 1 View History of carotid endarterectomy LEFT History of cataract surgery BOTH History of hernia surgery LEFT INGUINAL History of left hip replacement History of right hip replacement 08/18/18: MAC #3, ETT #7.5, HiLo, Grade 2 View with anterior pressure History of tonsillectomy Hx of nasal polypectomy Nausea and vomiting after administration of anesthetic agent Social History Preferred Language: Lithuanian Communication Ability: Effective Visual Impairment: No Limitations Hyster Driver Required: No Beliefs That Will Affect Care: None marital status: Current Living Situation: Alone Feels Safe at Home: Yes Smoking Status: Former smoker Cigarettes Per Day: <1/2 ppd x 50 years ; Do You Dip or Chew Tobacco: No ; Smoking End Date: 10 YR AGO ; Second Hand Exposure: No ; Hx Alcohol Use: Yes Alcohol type: beer and wine Hx Substance Use: No Review of Systems All systems reviewed & are unremarkable except as noted in HPI & below Physical Exam Physical Exam: Constitutional: In general, the patient is a healthy-appearing for age, well-nourished, well-developed elderly male in no acute distress. He ambulates without assistance and is alert and oriented x3. He has no focal deficits. His heart is regular. His lungs are clear. Abdomen is soft, nontender. His distal pulses are +2. He has brisk capillary refill and no sign of distal ischemia.
[~2019-05-24 08:53] MED LIST changes: -ASPECOTC PO; -ATOR-24 PO; +CEFAZOLIN 1000MG 1,000 MG/7.5 ML SYR IV SCH; -DVN/160 PO; -FLUT0.15; -IBUP-1050 PO; +LR 15ML/HR IV SCH; -OPTIRAY 320 IV PRN; -PRLSR20 PO
[2019-05-24] MEDS ORDERED: ATROPINE SULFATE 0.1 MG/ML 10ML SYR IV PRN (10:19)
[2019-05-24] MEDS ORDERED: HYDROmorphone INJ 1 MG/ML SYRINGE IV PRN (10:19)
[2019-05-24] MEDS ORDERED: ONDANSETRON INJ 2 MG/ML 2 ML VIAL IV PRN ×2 (10:19→16:43)
[2019-05-24] MEDS ORDERED: LABETALOL HCL IV 5 MG/ML 20ML IV PRN (10:19)
[2019-05-24] MEDS ORDERED: NITROGLYCERIN/D5W 100 MCG/ML BTL ONE (10:46)
--- NOTE | 2019-05-24 10:51 | History & Physical Bridge Note ---
Date of Service May 24, 2019 History & Physical Bridge Note I have examined the patient, reviewed the History & Physical and in the interval since the performance of the History & Physical I have noted the following changes of clinical significance: no changes noted
[2019-05-24] MEDS ORDERED: fentaNYL citrate 100 MCG/2 ML VIAL ONE ×2 (11:03→14:51)
[2019-05-24] MEDS ORDERED: LIDOCAINE HCL 1% 20 ML VIAL ONE (11:06)
[2019-05-24] MEDS ORDERED: BUPIVACAINE/EPINEPHRINE 0.5% MPF 1:200,000 30 ML VIAL ONE (11:06)
[2019-05-24] MEDS ORDERED: GELATIN SPONGE SZ 100 ONE (11:06)
[2019-05-24] MEDS ORDERED: THROMBIN FOR SOLN 20000 UNIT KIT ONE (11:07)
[2019-05-24] MEDS ORDERED: LIDOCAINE 2% JELLY 5 ML TUBE ONE (11:17)
[2019-05-24] MEDS ORDERED: ROCURONIUM BROMIDE 10 MG/ML 5 ML VIAL ONE ×7 (12:11→12:55)
[2019-05-24] MEDS ORDERED: GLYCOPYRROLATE 0.2 MG/ML VIAL ONE (12:11)
[2019-05-24] MEDS ORDERED: LIDOCAINE HCL 2% 2 ML VIAL/AMP(20MG/ML) INFIL ONE (12:11)
[2019-05-24] MEDS ORDERED: PROPOFOL IV EMULSION 10 MG/ML 20 ML VIAL IV ONE (12:11)
[2019-05-24] MEDS ORDERED: DEXAMETHASONE SOD INJ 4 MG/ML VIAL ONE (12:11)
[2019-05-24] MEDS ORDERED: NEOSTIGMINE METHYLSULFATE 5 MG/5 ML SYR ONE (12:11)
[2019-05-24] MEDS ORDERED: ONDANSETRON INJ 2 MG/ML 2 ML VIAL ONE (12:11)
[2019-05-24] MEDS ORDERED: ePHEDrine sulfate 50 MG/ML SYR ONE (12:49)
[2019-05-24] MEDS ORDERED: PHENYLEPHRINE HCL 10 MG/ML VIAL ONE (12:49)
[2019-05-24] MEDS ORDERED: NITROGLYCERIN 5 MG/ML 10 ML VIAL ONE (12:53)
[2019-05-24] MEDS ORDERED: MINERAL OIL LIGHT 10 ML BTL ONE (12:59)
[2019-05-24] MEDS ORDERED: LABETALOL HCL IV 5 MG/ML 20ML IV ONE (13:03)
[2019-05-24] MEDS ORDERED: NITROGLYCERIN/D5W 100MCG/ML 20ML SYR ONE (13:06)
[2019-05-24] MEDS ORDERED: VISIPAQUE IV PRN (13:08)
[2019-05-24] MEDS ORDERED: MIX: VIPERSLIDE 20ML + NITRO 5MG + NSS 1000ML IART ONE (13:09)
[2019-05-24] MEDS ORDERED: HEPARIN SOD (PORCINE) 1000 UNIT/ML 10 ML VIAL ONE (13:34)
--- NOTE | 2019-05-24 15:04 | Post Operative Brief Note ---
Immediate Post Op Note v1 Date of Surgery May 24, 2019 Pre & Post Diagnosis Operation Date: 05/24/19 10:40 Pre-Op Diagnosis: Aortic Graft Kinking Post-Op Diagnosis: Aortic Graft Kinking Procedure Operation Date: 05/24/19 10:40 Actual Procedures p Left femoral artery exposure, balloon angioplasty thoracic aortic endograft, endarterectomy and patch left common femoral artery, balloon angioplasty left common and external iliac artery(Bilateral) - Deshawn Ortez MD Surgeon Deshawn Ortez MD Orthodontic Laboratory Technician MD Jose Rafael Estimated Blood Loss 250 Findings Consistent with Post-Op Diagnosis Drains Bob Catheter Anesthesia Type General Complications none Disposition Accompanied Patient To Recovery: No Disposition: Recovery Room
--- NOTE | 2019-05-24 15:25 | Procedure Note ---
Angiogram Post Procedure Fluoroscopy Time (minutes): 9.5 Radiation (mGy): 82 Contrast: 0cc Post Operative Report Pre & Post Diagnosis Operation Date: 05/24/19 10:40 Pre-Op Diagnosis: Aortic Graft Kinking Post-Op Diagnosis: Aortic Graft Kinking Procedure Operation Date: 05/24/19 10:40 Actual Procedures p Left femoral artery exposure, balloon angioplasty thoracic aortic endograft, endarterectomy and patch left common femoral artery, balloon angioplasty left common and external iliac artery(Bilateral) - Deshawn Ortez MD Surgeon Deshawn Ortez MD Dermatology Sales Representative MD Kiley Mantilla PA-C Estimated Blood Loss 250 Findings Consistent with Post-Op Diagnosis Specimens none Drains none Anesthesia Type General Complications none Disposition Accompanied Patient To Recovery: No Disposition: Recovery Room Description of Procedure The patient was brought to the operating suite and placed in the supine position. The surgical site and patient identity were verified. The bilateral groins and abdomen were prepped and draped in the usual sterile fashion. A time out was performed. An incision was made in the left groin over the palpable femoral artery. The left common femoral artery was dissected out. The SFA and profunda were dissected out as well. The patient was heparinized. A clamp was placed on the SFA. The common femoral was accessed with an 18G Cook needle. A guidewire was placed. The needle was removed. An 8F sheath was placed. An angled glidewire was used to gain access to the aortic arch. A glidecath was advanced over the glidewire and advanced into the aortic arch. The glidewire was removed and a lunderquist wire was advanced through the glidecath. Dilators were passed over the wire as follows: 12F, 16F, 20F, 22F. We attempted placement of the 24F dry seal sheath but could not be advanced past the iliacs. We performed balloon angioplasty of the left iliac system with an [place] 8.0mm x 60mm x 80cm balloon. After this unfortunately the 24F sheath would still not pass. We then decided to address the area of buckling in the stent with balloon angioplasty. We performed balloon angioplasty of the area in the proximal descending aortic arch with a TriLobe balloon. Afterwards the area of buckling appeared improved with a smoother contour of the interior of the aortic stent graft. Wires and sheaths were removed. The common femoral, profunda, and side branches from the common femoral were clamped. We then examined our arteriotomy. The artery was quite friable and contained dense plaque, so we extended our arteriotomy with Bennett scissors and performed an endarterectomy of the common femoral artery. The remaining artery was quite thin but we felt it had enough integrity to perform a patch repair. Thus we performed a bovine pericardium patch repair with 6-0 prolene. Prior to the last stitches on the patch we flushed the superficial, profunda, and proximal common femoral arteries; good backbleeding was noted from the SFA and PFA. We flushed with heparin saline. We completed the patch. We achieved hemostasis which did require a few repair sut ures. We insonated the common femoral, superficial femoral, and profunda femoris arteries with doppler and excellent flow was noted throughout. The left groin was then closed in layers using 2-0 vicryl for the fascia and 3-0 vicryl for the dermis. The skin was closed with manju. A gauze dressing and tape were applied over the wound. Dr. Ortez was present and scrubbed for the entire procedure. At the conclusion of the case all instrument and needle counts were correct. The patient tolerated the procedure well and was taken to the recovery room in satisfactory condition. I attest to the content of the Intraoperative Record and any orders documented therein. Any exceptions are noted below.
--- NOTE | 2019-05-24 16:06 | Anesthesiology Progress Note ---
Date of Service May 24, 2019 Anesthesia Post Procedure Vital Signs Vital Signs: Temp Pulse Pulse Resp BP BP Pulse Ox 05/24/19 16:00 36.2 C L 68 16 116/60 93 05/24/19 15:50 65 16 115/63 99 05/24/19 15:40 65 16 126/68 99 05/24/19 15:32 37.3 C 66 16 130/70 97 05/24/19 09:35 36.4 C L 63 20 204/106 H 98 Transfer of Care Handoff Completed per policy Notes Mental Status: alert / awake / arousable Patient Amnestic to Procedure: Yes Nausea / Vomiting: adequately controlled Pain: adequately controlled Airway Patency, RR, SpO2: stable & adequate BP & HR: stable & adequate Hydration State: stable & adequate Anesthetic Complications: no major complications apparent
[2019-05-24] MEDS ORDERED: MoRPHine SULFATE 4 MG/ML 1 ML CARP\\VIAL IV PRN (16:43)
[2019-05-24] MEDS ORDERED: OXYCODONE/ACETAMINOPHEN 5mg/325mg TAB PO PRN (16:43)
[2019-05-24 17:11] LABS: Hematocrit (blood only) 38.3 % (42-52); Hemoglobin 12.8 g/dL (14.0-18.0); Mean Corpuscular Hemoglobin 30.8 pg (25-34); Mean Corpuscular Hgb Conc 33.4 g/dL (32-36); Mean Corpuscular Volume 92.1 fL (80-100); Mean Platelet Volume 9.8 fL (7.4-10.4); Platelet Count 123 K/uL (130-400); RDW Coefficient of Variation 15.2 % (11.5-14.5); RDW Standard Deviation 51.3 fL (36.4-46.3); Red Blood Count 4.16 M/uL (4.7-6.1); White Blood Count 29.66 K/uL (4.8-10.8)
[2019-05-24 17:59] LABS: Basophils # (auto) 0.04 K/uL (0-0.2); Basophils % (auto) 0.1 %; Eosinophils # (auto) 0.03 K/uL (0-0.5); Eosinophils % (auto) 0.1 %; Immature Granulocytes # (auto) 0.07 K/uL (0.00-0.02); Immature Granulocytes % (auto) 0.2 %; Lymphocytes # (auto) 18.55 K/uL (1.2-3.4); Lymphocytes % (auto) 62.5 %; Monocytes # (auto) 0.34 K/uL (0.11-0.59); Monocytes % (auto) 1.1 %; Neutrophils # (auto) 10.63 K/uL (1.4-6.5); Smudge Cells Present
[2019-05-24] MEDS: IBUPROFEN 200 MG TAB PO PRN (19:45)
[2019-05-24] MEDS: CEFAZOLIN 1000MG 1,000 MG/7.5 ML SYR IV SCH (19:46)
[2019-05-24] MEDS ORDERED: ATORVASTATIN 40 MG TAB PO SCH (21:00)
[2019-05-24] MEDS: CALCIUM 600MG + VIT D 400 IU TAB PO SCH (21:33)
[2019-05-25] MEDS: CEFAZOLIN 1000MG 1,000 MG/7.5 ML SYR IV SCH (03:32)
[2019-05-25] MEDS: IBUPROFEN 200 MG TAB PO PRN (08:19)
--- NOTE | 2019-05-25 08:39 | Surgery Progress Note ---
Date of Service May 25, 2019 Assessment & Plan (1) Status post thoracic aortic aneurysm repair: Doing well Will d/c today if he can spontaneously voids. If he doesn't will send home with a estes and leg bag. He has an appointment with his urologist this coming week Subjective No complaints. He claims the tingling in his left foot toes that he has had for a while has gone. Physical Exam Gastrointestinal (Abdomen): Inspection/Auscultation: abdomen normal to inspection; abdomen not distended Percussion/Palpation: abdomen soft; abdomen nontender and no guarding Skin: + wound (incision dry and clean) Psychiatric: A+Ox3, euthymic affect Genitourinary: Estes in place. urine has cleared up. Results & Data Vital Signs (Past 12 Hours) Vital Signs Temp Pulse Pulse Resp BP Pulse Ox 05/25/19 07:45 36.7 C 64 18 129/66 95 05/25/19 03:45 36.7 C 71 16 106/58 L 95 05/24/19 23:09 37.0 C 77 16 94/57 L 94
[2019-05-25] MEDS ORDERED: VALSARTAN 80 MG TAB PO SCH (09:00)
[2019-05-25] MEDS ORDERED: ASPIRIN 325 MG ECTAB PO SCH (09:00)
[2019-05-25] MEDS ORDERED: FINASTERIDE 5 MG TAB PO SCH (09:00)
[2019-05-25] MEDS ORDERED: CHOLECALCIFEROL 1,000 UNITS TAB PO SCH (09:00)
[2019-05-25] MEDS ORDERED: TAMSULOSIN HCL 0.4 MG CAP PO SCH (09:00)
[2019-05-25 09:15] LABS: BUN Creatinine Ratio 20.3 (10-20); Est GFR (African American) 51.1; Est GFR (Non-African American) 44.1; Potassium 3.7 mmol/L (3.5-5.1)
[2019-05-25 09:34] LABS: Hematocrit (blood only) 35.3 % (42-52); Hemoglobin 11.7 g/dL (14.0-18.0); Mean Corpuscular Hemoglobin 30.7 pg (25-34); Mean Corpuscular Hgb Conc 33.1 g/dL (32-36); Mean Corpuscular Volume 92.7 fL (80-100); Mean Platelet Volume 9.5 fL (7.4-10.4); Platelet Count 131 K/uL (130-400); RDW Coefficient of Variation 15.5 % (11.5-14.5); RDW Standard Deviation 52.2 fL (36.4-46.3); Red Blood Count 3.81 M/uL (4.7-6.1); White Blood Count 37.08 K/uL (4.8-10.8)
[2019-05-25 09:36] LABS: Basophils # (auto) 0.05 K/uL (0-0.2); Basophils % (auto) 0.1 %; Eosinophils # (auto) 0.08 K/uL (0-0.5); Eosinophils % (auto) 0.2 %; Immature Granulocytes # (auto) 0.06 K/uL (0.00-0.02); Immature Granulocytes % (auto) 0.2 %; Lymphocytes # (auto) 25.31 K/uL (1.2-3.4); Lymphocytes % (auto) 68.3 %; Monocytes # (auto) 1.55 K/uL (0.11-0.59); Monocytes % (auto) 4.2 %; Neutrophils # (auto) 10.03 K/uL (1.4-6.5); Smudge Cells Present
[2019-05-25] MEDS: CALCIUM 600MG + VIT D 400 IU TAB PO SCH (09:58)
[2019-05-26] MEDS ORDERED: ALENDRONATE SODIUM 70 MG TAB PO SCH (06:00)
--- NOTE | 2019-05-31 08:32 | Discharge Summary ---
Date of Service May 31, 2019 Admission HPI Per Admitting Provider Mr. Kline is status post endovascular aneurysm repair in 2017. The patient was seen here last year in followup with a CT scan of his endograft at that time. This did not appear to show any significant abnormalities except a minimal amount of birdbeaking. The patient denies any major changes in his health since being seen here a year ago. He does state that he ambulates relatively slowly and has some mild hip, knee and ankle pain and is status post bilateral hip replacements. He denies any chest pain, shortness of breath, abdominal pain, nausea, vomiting, thigh or calf claudication, wounds, ulcerations or rest pain. The CTA performed prior to today's appointment of his endograft indicates an area of bird beaking which has progressed but no definite areas of endoleak. Due to worsening of bird beak in endograft, recommend relining procedure of thoracic endograft. Procedure discussed with pt, he was agreeable. Admission Exam Per Admitting Provider Physical Exam: Constitutional: In general, the patient is a healthy- appearing for age, well-nourished, well-developed elderly male in no acute distress. He ambulates without assistance and is alert and oriented x3. He has no focal deficits. His heart is regular. His lungs are clear. Abdomen is soft, nontender. His distal pulses are +2. He has brisk capillary refill and no sign of distal ischemia. Principal Diagnosis 1. 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 HX endovascular thoracic AA repair Discharge Exam Constitutional WD/WN, vitals as above Gastrointestinal (Abdomen) Inspection/Auscultation: abdomen normal to inspection; abdomen not distended Percussion/Palpation: abdomen soft; abdomen nontender and no guarding Skin + wound (incision dry and clean) Psychiatric A+Ox3, euthymic affect Discharge Data Allergies Allergy/AdvReac Type Severity Reaction Status Date / Time KVNG Inhibitors AdvReac Mild COUGH Verified 05/24/19 09:51 codeine AdvReac Mild nasuea Verified 05/24/19 09:51 Procedures Performed Operation Date: 05/24/19 10:40 Actual Procedures p Left femoral artery exposure, balloon angioplasty thoracic aortic endograft, endarterectomy and patch left common femoral artery, balloon angioplasty left common and external iliac artery(Bilateral) - Deshawn Ortez MD Ordered Studies 05/24/19 07:33 EV Angio Abdomen Aorta Routine 05/24/19 07:34 US guide vascular access Routine Hospital Course (1) Status post thoracic aortic aneurysm repair: Doing well POD #2 from 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 Will d/c today if he can spontaneously voids. If he doesn't will send home with a estes and leg bag. He has an appointment with his urologist this coming week Total Time Total Time Spent Total Time Spent (In Minutes): 15 minutes Total Time Includes: Examination of the Patient, Discharge Planning and Medication Reconciliation Discharge Plan Discharge Items Patient Disposition: Home - Self-Care Reason For Visit: Aortic Graft Kinking Discharge Diagnosis: Post thoracic endograft with involution of graft Discharge Goals: Therapeutic intervention Activity: Per 'Additional Instructions' section Lifting: Gradually increase as tolerated Bathing Comment: may shower starting tomorrow Exercise/Sports: Gradually increase as tolerated Driving/Machine Use: Resume 3 days after discharge Weightbearing: Full weightbearing Non-emergency contact: Surgeon Call non-emergency contact if: you have any medication questions, your symptoms worsen, your pain is not controlled, your pain is worsening, your pain is unusual for you, your pain is concerning for you, your temperature is above 101.5, your wound has increased redness, your wound has increased drainage and your wound pain has increased Follow-up/Referrals: Christopher Kearns MD [Primary Care Provider] - Diet: Heart Healthy Addtl Provider Instructions: ACTIVITY RECOMMENDATIONS: See Above SPECIAL CARE INSTRUCTIONS: Call your doctor if: * Temperature above 101 degrees * Pain not relieved by pain medicine ordered * There is increased drainage or redness from any incision * You have any unanswered questions or concerns. Call [phone] to schedule a follow up appointment if one not already scheduled. Keep appointment next week with your urologist Prescriptions: New oxycodone-acetaminophen [Percocet] 5-325 mg tablet 1 tab PO Q6H PRN (Reason: pain) Qty: 10 RF: 0 Continued atorvastatin 40 mg Tablet 40 mg PO PM RF: 0 aspirin 325 mg Tablet 325 mg PO QAM RF: 0 alendronate 70 mg Tablet 70 mg PO WK RF: 0 tamsulosin 0.4 mg Capsule 0.4 mg PO QAM RF: 0 ibuprofen 200 mg Tablet 200 - 400 mg PO Q6H PRN (Reason: Pain) RF: 0 finasteride 5 mg Tablet 5 mg PO QAM RF: 0 valsartan 160 mg Tablet 160 mg PO QAM RF: 0 calcium carbonate-vitamin D3 [Calcium 600 + D(3)] 600 mg(1,500mg) -400 unit Tablet 1 tab PO BID RF: 0 cholecalciferol (vitamin D3) [Vitamin D3] 2,000 unit Tablet 2,000 unit PO QAM RF: 0 Stand-Alone Forms: [facility], [facility] Discharge Orders: Discharge Order (Routine); Ordered 05/25/19 Ordered By: Deshawn Ortez Admission Data Admit Date/Time: 05/24/19 14:51 Attending Provider: Deshawn Ortez Admit Provider: Deshawn Ortez Primary Care Provider: Christopher Kearns Other Providers: Divya Marte ; Juan Taylor ; Salas Gonzalez ; Vonda Godwin ; Quoc Callaway Service: Surgical Services Other Interventions: Discharge Summary Assessment (RN) Last Done: 05/25/19 12:03 DC Date/Time DO NOT enter until pt leaves facility: 05/25/19 13:35
== END 2019-05-25 13:35 | disposition home or self-care (01) | DRG 254 ==
LOC: ASU 08:53 → 3N 14:51
PROC: M.TEVAR (2019-05-24 10:40)
DX: Z79.82 Long term (current) use of aspirin; Z88.8 Allergy status to other drugs, medicaments and biological substances; Z88.5 Allergy status to narcotic agent; Z79.899 Other long term (current) drug therapy; M81.0 Age-related osteoporosis without current pathological fracture; Z87.891 Personal history of nicotine dependence; I10 Essential (primary) hypertension; Z86.73 Personal history of transient ischemic attack (TIA), and cerebral infarction without residual deficits; E78.5 Hyperlipidemia, unspecified; I25.10 Atherosclerotic heart disease of native coronary artery without angina pectoris; Z79.83 Long term (current) use of bisphosphonates; T82.390A Other mechanical complication of aortic (bifurcation) graft (replacement), initial encounter; Y71.2 Prosthetic and other implants, materials and accessory cardiovascular devices associated with adverse incidents

== ENCOUNTER 2020-08-03 05:29 | Observation (INO) ==
--- NOTE | 2020-07-31 09:48 | Anesthesiology Consultation ---
Date of Service July 31, 2020 Assessment & Plan (1) Encounter for pre-operative examination: - Per assessment on 07/21: Travel screen negative. No known COVID-19 positive contacts or current COVID-19 related symptoms. Patient had preop COVID testing 07/28 which was negative. - S/P TEVAR: 05/28/19: Grade 2 view, MAC#3, ETT 7.5 at [facility] - Oncology office visit: 07/30/20: Known hx of CLL. Reviewed 07/28/20 labs with WBC 101.75. "Gradually rising lymph count but no sxs or change on phys exam.. Thus no urgent need to treat but likely 2will [sic] need to do so in near future.. Will thus obtain ct chest abd pelvix and repeat bloods and rtc month [to be done after hernia surgery].. Start allopurinol in anticipation of rx sio as to decrease chance of tumor lysis syndrome. inf vacc today.. ok for hernioraphy [sic] 08/03. Surgeon's office aware of elevated WBC/oncology preop evaluation. At anesthesiologist discretion AM DOS if repeat CBC needed. Chart Review Chart Review: Acceptable Risk for Surgery (pending evaluation AM DOS) and Patient NOT seen in Pre Admission Testing History Surgery Operation Date: 08/03/20 07:00 Proposed Procedures p Right Open Inguinal Hernia Repair - Haseeb Wright MD, FACS Height/Weight Height: 5 ft 7 in Weight: 58.967 kg Allergies Allergy/AdvReac Type Severity Reaction Status Date / Time KVNG Inhibitors AdvReac Mild Cough Verified 07/31/20 09:46 codeine AdvReac Mild Nausea Verified 07/21/20 09:55 Medications Home Medications Medication Instructions Recorded Confirmed Last Taken aspirin 325 mg PO QAM 05/16/19 07/21/20 06/07/20 calcium carbonate-vitamin D3 1 tab PO BID 05/16/19 07/21/20 06/07/20 [Calcium 600 + D(3)] cholecalciferol (vitamin D3) 2,000 unit PO QAM 05/16/19 07/21/20 06/07/20 [Vitamin D3] ibuprofen 200 - 400 mg PO Q6H PRN 05/16/19 07/21/20 06/07/20 acetaminophen 500 mg capsule 500 mg PO Q6H PRN 07/23/19 07/21/20 Unknown tamsulosin 0.4 mg capsule 0.4 mg PO QAM #90 cap 02/03/20 07/21/20 06/07/20 atorvastatin 40 mg PO HS 06/07/20 07/21/20 06/07/20 fluticasone propionate [Flonase] 2 spray INTRANASAL DAILY PRN 07/21/20 07/21/20 Unknown valsartan 160 mg PO QAM 07/21/20 07/21/20 Unknown Past Medical History Medical History Aortic aneurysm s/p TEVAR (05/2019) Bifascicular block chronic, dating back to at least 08/2018 per chart review Bilateral inguinal hernia CAD (coronary artery disease) per remote records, non-obstructive Carotid artery disease s/p left carotid endarterectomy (2013) CLL (chronic lymphocytic leukemia) Hearing deficit History of seizure felt r/t hypoglycemic episodes (last ) History of stroke 2008 - no residual effects Hyperlipidemia Hypertension Hypoglycemia Left renal mass Osteoporosis Past Family History Family History Brother Colorectal cancer Father Heart disease Stroke Other Hypertension Denies family history of Ovarian cancer Prostate cancer Myocardial infarction Breast cancer Past Surgical History Surgical History H/O thoracic aortic aneurysm repair TEVAR: 05/28/19: Grade 2 view, MAC#3, ETT 7.5 at [facility] Hip fracture requiring operative repair LEFT 06/10/18: MAC#3, ETT#7.5, HiLo Oral, Grade 1 View History of carotid endarterectomy LEFT 2013 History of cataract surgery BOTH History of hernia surgery LEFT INGUINAL 1980 History of left hip replacement History of right hip replacement 08/18/18: MAC #3, ETT #7.5, HiLo, Grade 2 View with anterior pressure History of tonsillectomy 1944 Hx of nasal polypectomy 1950 Nausea and vomiting after administration of anesthetic agent Status post incision and drainage (06/26/20) incision and drainage in the office of the left posterior thigh abscess 06/26/20 Dr. Wright in office Social History Smoking Status: Former smoker Smoking cigarettes per day: <1/2 ppd x 50 years Do You Dip or Chew Tobacco: No Smoking End Date: QUIT 10 YRS AGO Hx Alcohol Use: Yes Alcohol type: beer and wine alcohol intake frequency: 0-2 drinks per day Hx Substance Use: No substance use type: does not use Testing Laboratory Results 07/28/20 WBC 101.75 H/H 14.8/46.9 PLATELETS 138 SODIUM 143 POTASSIUM 3.3 CHLORIDE 108 CO2 29 BUN 26 CREATININE 1.43 GLUCOSE 150 TSH 1.190 Electrocardiogram Date: 07/28/20 NSR at 60bpm. RBBB. LAFB. *Bifascicular block.* Cannot r/o anterior infarct, age undetermined. Compared to 08/21/2018, PSVC's are no longer present otherwise no significant change per mold capper helper review. Bifascicular block dating back to at least 08/2018 EKG per chart review. Echocardiogram Date: 06/10/18 EF: 60-65% Valvular Disease: + no significant valvular disease Stress Test Date: 06/20/17 Type: DSE Resting EF: 65-70% Normal LV size and systolic function with no RWMA Mild concentric LVH Normal LV wall motion response to Dobutamine LV becomes smaller and more vigorous with Dobutamine LV global function improves with Dobutamine CONCLUSIONS: Negative dobutamine stress EKG for ischemia at 95% MPHR Negative dobutamine stress Echo for ischemia at 95% MPHR. Hypotensive response to Dobutamine and atropine, NSS infusion increase to 500 ml/hr for b/p support. BP 112/60 in recover and the patient was asymptomatic. Other Testing Carotid duplex: 11/21/17: <50% SHMUEL stenosis. <30% LICA stenosis s/p endarterectomy. Antegrade flow in vertebral arteries. No significant change since last exam 05/2016 per report. CTA chest: 07/23/19: Stable to slight interval increase in mural thrombus within the descending thoracic aortic endograft. No evidence of an endoleak allowing for this single phase of contrast. Appropriate exclusion of the descending thoracic aortic aneurysm, which is unchanged in size. Stable size of the 4.3 cm ascending aortic aneurysm. 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 Thoracic and upper abdominal lymphadenopathy. Presumably this relates to an underlying lymphoproliferative disease or malignancy. This has slightly progressed from prior. Emphysema. Partially chronic changes of the right lower lobe with superimposed aspiration or bronchitis. At anesthesiologist discretion AM DOS if preop chest imaging (i.e. CXR) needed
[2020-08-03] MEDS ORDERED: LR 15ML/HR IV SCH (06:00)
[2020-08-03] MEDS ORDERED: ceFAZolin 2000MG 2,000 MG/15 ML SYR IV SCH (06:00)
--- NOTE | 2020-08-03 06:12 | History & Physical Bridge Note ---
Date of Service August 03, 2020 History & Physical Bridge Note I have examined the patient, reviewed the History & Physical and in the interval since the performance of the History & Physical I have noted the following changes of clinical significance: no changes noted High WBC- known CLL- eval by heme/onc- no acute chgs- ok for surgery
[2020-08-03] MEDS ORDERED: fentaNYL citrate 100 MCG/2 ML VIAL ONE (06:26)
[2020-08-03] MEDS ORDERED: ONDANSETRON INJ 2 MG/ML 2 ML VIAL ONE (06:26)
[2020-08-03] MEDS ORDERED: DEXAMETHASONE SOD INJ 4 MG/ML VIAL ONE (06:26)
[2020-08-03] MEDS ORDERED: PROPOFOL IV EMULSION 10 MG/ML 20 ML VIAL IV ONE (06:26)
[2020-08-03] MEDS ORDERED: LIDOCAINE HCL 2% 2 ML VIAL/AMP(20MG/ML) INFIL ONE (06:26)
[2020-08-03] MEDS ORDERED: BUPIVACAINE 0.5 % 5 MG/1 ML MPF 30ML VIAL ONE (06:45)
[2020-08-03] MEDS ORDERED: ePHEDrine sulfate 50 MG/ML AMP IV PRN (06:55)
[2020-08-03] MEDS ORDERED: ATROPINE SULFATE 0.1 MG/ML 10ML SYR IV PRN (06:55)
[2020-08-03] MEDS ORDERED: ONDANSETRON INJ 2 MG/ML 2 ML VIAL IV PRN ×2 (06:55→09:18)
[2020-08-03] MEDS ORDERED: fentaNYL citrate 100 MCG/2 ML VIAL IV PRN (06:55)
[2020-08-03] MEDS ORDERED: ePHEDrine sulfate 50 MG/ML SYR ONE (07:15)
[2020-08-03] MEDS ORDERED: GLYCOPYRROLATE 0.2 MG/ML VIAL ONE (07:15)
[2020-08-03] MEDS ORDERED: PHENYLEPHRINE 100MCG/ML 5ML SYR ONE (07:21)
--- NOTE | 2020-08-03 08:05 | Post Operative Brief Note ---
PG Immediate Post Op with CF Date of Surgery August 03, 2020 Pre & Post Diagnosis Operation Date: 08/03/20 07:00 Pre-Op Diagnosis: Right Inguinal Hernia Post-Op Diagnosis: Right Inguinal Hernia I identified the patient and participated in the time-out.: Yes Procedure Operation Date: 08/03/20 07:00 Actual Procedures p Right Open Inguinal Hernia Repair with Mesh(Right) - Haseeb Wright MD, FACS Surgeon Haseeb Wright MD, FACS Histology Technician Evelyn Blackwell Estimated Blood Loss 10 Findings Consistent with Post-Op Diagnosis Specimens Specimen Description: A. Cord Lipoma
[2020-08-03] MEDS ORDERED: ACETAMINOPHEN 1,000 MG/100 ML VIAL IV ONE (08:06)
--- NOTE | 2020-08-03 08:47 | Anesthesiology Progress Note ---
Date of Service August 03, 2020 Anesthesia Post Procedure Vital Signs Vital Signs: Temp Pulse Pulse Resp BP Pulse Ox 08/03/20 08:35 73 20 151/86 H 92 08/03/20 08:25 81 18 153/100 H 94 08/03/20 08:18 97.0 F L 91 H 19 180/99 H 98 08/03/20 06:14 97.9 F 69 18 193/103 H 96 Transfer of Care Handoff Completed per policy Notes Mental Status: alert / awake / arousable and participated in evaluation Patient Amnestic to Procedure: Yes Nausea / Vomiting: adequately controlled Pain: adequately controlled Airway Patency, RR, SpO2: stable & adequate BP & HR: stable & adequate Hydration State: stable & adequate Anesthetic Complications: no major complications apparent and Pt Satisfied with anesthetic care
[2020-08-03] MEDS ORDERED: HYDROCODONE/ACETAMOPHEN 5/325MG TAB PO PRN ×2 (09:18)
[2020-08-03] MEDS ORDERED: ACETAMINOPHEN 325 MG TAB PO PRN (09:18)
[2020-08-03] MEDS ORDERED: PROMETHAZINE HCL 12.5 MG in SODIUM CHLORIDE 0.9% 50 ML IV PRN (09:18)
--- NOTE | 2020-08-03 09:29 | Hospitalist Consultation ---
Date of Consultation August 03, 2020 Assessment & Plan (1) Right inguinal hernia: Status post open hernia repair with mesh 08/03/2020, by Dr. Haseeb Wright (2) BPH (benign prostatic hyperplasia): Continue Flomax 0.4 mg start on 08/04 (3) Hypertension: Valsartan 160 has been ordered and will be continued History of Present Illness Attending Physician: Haseeb Wright MD, [facility] History of Present Illness 84-year-old male who underwent a right open inguinal hernia repair with mesh by Dr. Haseeb Wright on 11/21. Patient was asked for medical management consultation. Patient typically has very few medical problems only with CLL GERD BPH and hypertension. Patient is also status post a thoracic aneurysm repair. Typically only taking aspirin which was held preoperatively atorvastatin 40 multiple vitamins Flonase Flomax 0.4 and valsartan 160. Patient was seen postoperatively he had good pain control and was doing very well he already had eaten some food Allergies Allergy/AdvReac Type Severity Reaction Status Date / Time KVNG Inhibitors AdvReac Mild Cough Verified 08/03/20 06:05 codeine AdvReac Mild Nausea Verified 08/03/20 06:05 Home Medications Home Medications Medication Instructions Recorded Confirmed Type aspirin 325 mg PO QAM 05/16/19 08/03/20 History calcium carbonate-vitamin D3 1 tab PO BID 05/16/19 08/03/20 History [Calcium 600 + D(3)] cholecalciferol (vitamin D3) 2,000 unit PO QAM 05/16/19 08/03/20 History [Vitamin D3] ibuprofen 200 - 400 mg PO Q6H PRN 05/16/19 08/03/20 History acetaminophen 500 mg capsule 500 mg PO Q6H PRN 07/23/19 08/03/20 History tamsulosin 0.4 mg capsule 0.4 mg PO QAM #90 cap 02/03/20 08/03/20 Rx atorvastatin 40 mg PO HS 06/07/20 08/03/20 History fluticasone propionate [Flonase] 2 spray INTRANASAL DAILY PRN 07/21/20 08/03/20 History valsartan [Diovan] 160 mg PO QAM 07/21/20 08/03/20 History Patient History Medical History (Updated 08/03/20 @ 09:28 by Momo Covington MD) Aortic aneurysm s/p TEVAR (05/2019) Bifascicular block chronic, dating back to at least 08/2018 per chart review Bilateral inguinal hernia CAD (coronary artery disease) per remote records, non-obstructive Carotid artery disease s/p left carotid endarterectomy (2013) CLL (chronic lymphocytic leukemia) Hearing deficit History of seizure felt r/t hypoglycemic episodes (last ) History of stroke 2008 - no residual effects Hyperlipidemia Hypertension Hypoglycemia Left renal mass Osteoporosis Surgical History (Updated 08/03/20 @ 13:44 by Tiffanie Mckeon RN) H/O right inguinal hernia repair (08/03/20) Open right inguinal hernia repair. Dr. Wright 08/03/2020 H/O thoracic aortic aneurysm repair TEVAR: 05/28/19: Grade 2 view, MAC#3, ETT 7.5 at [facility] Hip fracture requiring operative repair LEFT 06/10/18: MAC#3, ETT#7.5, HiLo Oral, Grade 1 View History of carotid endarterectomy LEFT 2013 History of cataract surgery BOTH History of hernia surgery LEFT INGUINAL 1980 History of left hip replacement History of right hip replacement 08/18/18: MAC #3, ETT #7.5, HiLo, Grade 2 View with anterior pressure History of tonsillectomy 1944 Hx of nasal polypectomy 1950 Nausea and vomiting after administration of anesthetic agent Status post incision and drainage (06/26/20) incision and drainage in the office of the left posterior thigh abscess 06/26/20 Dr. Wright in office Family History Brother Colorectal cancer Father Heart disease Stroke Other Hypertension Denies family history of Ovarian cancer Prostate cancer Myocardial infarction Breast cancer Social History Smoking Status: Former smoker Tobacco Type: Cigarettes packs per day: 0.75; Years Smoked: 50; Cigarettes Per Day: <1/2 ppd x 50 years; Smoking End Date: QUIT 10 YRS AGO; Second Hand Exposure: No; Do You Dip or Chew Tobacco: No; Hx Alcohol Use: Yes Alcohol type: beer and wine Alcohol Intake Frequency: 4 or More x per/Week Alcohol Intake Frequency Comment: 14 Hx Substance Use: No Preferred Language: Estonian Communication Ability: Effective Visual Impairment: No Limitations Pharmacy Aide Required: No Beliefs That Will Affect Care: None marital status: Current Living Situation: Alone current occupational status: retired How many Children do You have: 0 Other Information That Helps Us Care for You: No Feels Safe at Home: Yes Safety Concerns: Feels Safe At This Time Childhood Exposure to Second-Hand Smoke: Yes Dental Care, Regularly: Yes Physical Activity Frequency: 1-2 Times per Week Seatbelt Use: always Sunscreen Use: No Assistive Devices: Denture - Upper, Denture - Lower, Glasses, Hearing Aid - Bilateral and Hearing Aid - Left Assistive Devices Comment: PARTIALS Review of Systems Review of Systems: Mild distress and fatigue no headache, blurry or double vision no speech or swallowing issues no chest pain, pressure or palpitations no shortness of breath, cough or wheezes Minor right-sided abdominal pain there is an ice pack in place no dysuria, hematuria or frequency no focal joint pain or swelling no back pain, CVA tenderness or radicular pain no bruising, bleeding or rashes no focal signs of weakness or numbness or altered sensation no complaints of anxiety or depression. Physical Exam Physical Exam: The patient appeared well nourished and normally developed. Vital signs as documented. Head exam is normocephalic atraumatic no scleral icterus Neck is without JVD, thyromegaly, or carotid bruits. Lungs are clear to auscultation, no focal loss of breath sounds Cardiac exam, Rhythm is regular.. systolic ejection murmur Abdominal exam reveals normal bowel sounds, soft minor right-sided abdominal pain Extremities are nonedematous and both pedal pulses are present Neurologic exam is alert and oriented, no focal loss of strength or sensation Skin is without bruises or rashes Psychologically is without concerns for anxiety or depression. Results & Data Results & Data ([facility]) Vital Signs (Past 12 Hours) Vital Signs Temp Pulse Pulse Resp BP Pulse Ox 08/03/20 08:55 67 20 152/82 H 96 08/03/20 08:45 98.8 F 69 17 156/82 H 96 08/03/20 08:35 73 20 151/86 H 92 08/03/20 08:25 81 18 153/100 H 94 08/03/20 08:18 97.0 F L 91 H 19 180/99 H 98 08/03/20 06:14 97.9 F 69 18 193/103 H 96 PG Care Time/CCT Total # of Minutes Spent Total Time Spent with Patient: Total time spent is greater than 50% in coordination of care (as documented) at patient's floor/unit and/or counseling patient: Coding Level of Care Code 99055 Inpt Consult Level 2 Diagnoses Right inguinal hernia K40.90 BPH (benign prostatic hyperplasia) N40.0 Lower urinary tract symptom presence: unspecified whether lower urinary tract symptoms present Hypertension I10 (1) BPH (benign prostatic hyperplasia) Lower urinary tract symptom presence: unspecified whether lower urinary tract symptoms present Qualified Code(s): N40.0 - Benign prostatic hyperplasia without lower urinary tract symptoms
[2020-08-03] MEDS: SODIUM CHLORIDE 0.9% 1000ML 1,000 ML IV SCH (10:15)
[2020-08-03] MEDS: VALSARTAN 80 MG TAB PO SCH (10:34)
[2020-08-03] MEDS: DOCUSATE SODIUM/SENNA 50/8.6MG TAB PO SCH ×2 (10:34→20:02)
[2020-08-03] MEDS: MAGNESIUM HYDROXIDE SUSP 30 ML UDC PO SCH ×2 (10:34→20:02)
--- NOTE | 2020-08-03 11:08 | Operative Report (OR) ---
DATE OF OPERATION: 08/03/2020 NAME OF OPERATION: Open right inguinal hernia repair. PREOPERATIVE DIAGNOSIS: Right inguinal hernia. POSTOPERATIVE DIAGNOSIS: Right inguinal hernia with large indirect defect containing small bowel. STAFF SURGEON: Haseeb Wright MD. LAST REPAIRER HELPER: Shikha Blackwell PA-C. ANESTHESIA: General. DESCRIPTION OF PROCEDURE: The patient was brought in the operating room and placed on the operating table in supine position. Pneumatic stockings were placed. My certified nursing assistant helped with prepping, draping, repair of the hernia and closure of the wound. 0.5% plain Marcaine was used to anesthetize skin and subcutaneous tissue in the right inguinal area with incision made parallel to the inguinal ligament, carrying dissection down identifying the external oblique fibers. These were incised along their length to the external ring. There was significant scar tissue from the chronic hernia of which the sac was down into the scrotum. Cord structures were mobilized. It was apparent the patient had a large indirect hernia sac, which contained small bowel. The sac was opened. The small bowel reduced. The sac was dissected away from the cord structures, then closed using 2-0 Ethibond suture. There was not enough of a defect to use a plug, so a large mesh patch was placed into the floor of the canal around the cord structures and secured using 2-0 Ethibond suture. The site was irrigated. External oblique fibers were closed over the mesh around the cord structures. The deep tissue was anesthetized. Subcutaneous tissue was reapproximated using 2-0 plain suture and then the skin reapproximated using 4-0 nylon suture. Dressing applied and the patient was transferred to recovery room in stable condition. I attest to the content of the Intraoperative Record and any orders documented therein. Any exception s are noted below.
[2020-08-03] MEDS: ceFAZolin 1000MG 1,000 MG/7.5 ML SYR IV SCH (17:32)
[2020-08-03] MEDS ORDERED: ATORVASTATIN 40 MG TAB PO SCH (21:00)
[2020-08-03] MEDS: IBUPROFEN 200 MG TAB PO PRN (23:26)
[2020-08-04] MEDS: ceFAZolin 1000MG 1,000 MG/7.5 ML SYR IV SCH ×2 (00:13→06:52)
[2020-08-04] MEDS: SODIUM CHLORIDE 0.9% 1000ML 1,000 ML IV SCH (06:15)
[2020-08-04] MEDS: VALSARTAN 80 MG TAB PO SCH (07:43)
[2020-08-04] MEDS: DOCUSATE SODIUM/SENNA 50/8.6MG TAB PO SCH ×2 (07:44→09:33)
[2020-08-04] MEDS: MAGNESIUM HYDROXIDE SUSP 30 ML UDC PO SCH ×2 (07:44→09:33)
[2020-08-04] MEDS ORDERED: TAMSULOSIN HCL 0.4 MG CAP PO SCH (09:00)
[2020-08-04] MEDS: IBUPROFEN 200 MG TAB PO PRN (09:35)
--- NOTE | 2020-08-04 10:38 | Anesthesiology Progress Note ---
Date of Service August 04, 2020 Anesthesia Post Procedure Vital Signs Vital Signs: Temp Pulse Pulse Resp BP Pulse Ox 08/04/20 09:18 36.7 C 67 57 L 16 152/79 H 92 08/04/20 07:20 36.7 C 57 L 16 152/79 H 92 08/04/20 03:56 36.8 C 58 L 18 164/80 H 96 08/03/20 23:38 36.5 C 62 18 178/84 H 94 08/03/20 16:00 36.7 C 79 18 152/75 H 96 08/03/20 13:54 85 18 145/83 H 97 Notes Mental Status: alert / awake / arousable and participated in evaluation Patient Amnestic to Procedure: Yes Nausea / Vomiting: adequately controlled Pain: adequately controlled Airway Patency, RR, SpO2: stable & adequate BP & HR: stable & adequate Hydration State: stable & adequate Anesthetic Complications: no major complications apparent and Pt Satisfied with anesthetic care
--- NOTE | 2020-08-04 13:08 | Discharge Summary (DS) ---
PRINCIPAL DIAGNOSIS: Right inguinal hernia. PROCEDURE: The patient underwent open right inguinal hernia repair. HOSPITAL COURSE: The patient was brought into the hospital on 08/03/2020 where he underwent open right inguinal hernia repair, which was very large involving small bowel. He did relatively well. He does have CLL and I believe he has some platelet abnormality with a prolonged bleeding time requiring a suture in his incision postop. He has done well overnight and is felt stable for discharge home today to be followed in the surgical clinic next week.
== END 2020-08-04 10:49 | disposition home or self-care (01) ==
LOC: ASU 05:29 → 3W 05:29

== ENCOUNTER 2020-10-23 15:15 | Observation (INO) ==
[2020-10-23] MEDS ORDERED: SODIUM CHLORIDE 0.9% 1000ML 1,000 ML IV SCH ×2 (15:45→20:59)
--- NOTE | 2020-10-23 15:47 | Emergency Department Note ---
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 chain and supraclavicular lymphadenopathy. This suggests a lymphoproliferative disorder. Correlation with the patient's medical/oncological history will be required. 7. Additional findings as above. ACT 112: Negative or not required by law. Electronically signed by: Jason Francois M.D. 10/23/2020 5:56 PM ECG Data Attestation: I personally reviewed and interpreted this ECG as follows: Indication: + weakness Rate (beats per minute): 64 Rhythm: + normal sinus ECG Intervals/blocks: + First degree AV block, + Right Bundle branch block and + Normal QT ECG [place]: + Left axis deviation ECG ST segments: + Nonspecific ST abnormalities Blood Pressure Blood Pressure Findings: Elevated blood pressure Blood Pressure Disposition: further management by hospitalist RAIN Luis This is a well-appearing 85-year-old male who presents from home where he lives independently due to concern for dysarthria and dysphonia. Patient's last known well was last night when he went to bed. 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 Patient does take aspirin, no other anticoagulation. Patient had an NIH stroke score of 2, had no other extremity findings or facial droop, no headaches or dizziness. Labs drawn and sent, patient placed on a surveillance monitor, and sent for CT imaging. No acute pathology noted on CT or CT angiography. Patient's labs are reassuring. Patient was initially hypertensive, however this did improve. Due to concern for possible underlying CVA not noted on CT, I discussed with the patient additional inpatient management evaluation, he verbalized understanding and was in agreement. Case discussed with hospitalist for additional evaluation. While they were concerned about the patient's significant leukocytosis, this has been trending up over the last year given the patient's history of CLL. Patient was following with heme-onc locally. They did request I contact on-call heme-onc to discuss his leukocytosis. They advised there were no other changes to the approach of the patient despite the elevated white blood cell count of 115. Patient remained otherwise hemodynamically stable. I do not suspect underlying infectious etiology. An order was placed for continuous cardiac monitoring. The monitor shows a rate of _66_ with _normal sinus_ rhythm. Impression & Plan CVA (cerebral vascular accident), Hypertension, CLL (chronic lymphocytic leukemia) Discharge Plan Visit Data Chief Complaint: Stroke/CVA Symptoms ED Provider: Brenda Espino Discharge Problem: CVA (cerebral vascular accident), Hypertension, CLL (chronic lymphocytic leukemia) Patient Disposition: Admitted As Inpatient Discharge Problem: CVA (cerebral vascular accident) Qualifiers: CVA mechanism: unspecified Qualified Code(s): I63.9 - Cerebral infarction, unspecified Hypertension Qualifiers: Hypertension type: essential hypertension Qualified Code(s): I10 - Essential (primary) hypertension
--- NOTE | 2020-10-23 15:54 | XRay Report ---
XR chest 1V portable CLINICAL HISTORY: Stroke Like Symptoms COMPARISON STUDY: 08/17/2018 FINDINGS: The heart is borderline enlarged. There is a descending thoracic aortic stent graft. There is mild elevation/eventration right hemidiaphragm. There is no failure. There is no focal pulmonary c onsolidation. There are no significant pleural effusions.[ IMPRESSION: No active disease in the chest. ACT 112: Negative or not required by law. Electronically signed by: Danish Estes M.D. 10/23/2020 3:53 PM
[2020-10-23 15:57] LABS: Hemoglobin 14.9 g/dL (14.0-18.0); Mean Corpuscular Hemoglobin 31.1 pg (25-34); Mean Corpuscular Hgb Conc 32.4 g/dL (32-36); Mean Platelet Volume 11.5 fL (7.4-10.4); Platelet Count 153 K/uL (130-400); RDW Coefficient of Variation 14.9 % (11.5-14.5); RDW Standard Deviation 51.4 fL (36.4-46.3); Red Blood Count 4.79 M/uL (4.7-6.1); White Blood Count 115.95 K/uL (4.8-10.8)
[2020-10-23] MEDS ORDERED: hydrALAZINE HCL 20 MG/ML VIAL IV STA (16:17)
[2020-10-23 16:19] LABS: Alanine Aminotransferase 41 U/L (12-78); Albumin Level 3.7 gm/dl (3.4-5.0); BUN Creatinine Ratio 19.4 (10-20); Blood Urea Nitrogen 31 mg/dl (7-18); Calcium 10.2 mg/dl (8.5-10.1); Carbon Dioxide 27 mmol/L (21-32); Chloride 108 mmol/L (98-107); Creatinine Clr Calc Pharmacy 32.1 ml/min; Est GFR (African American) 45.8; Est GFR (Non-African American) 39.6; Glucose 142 mg/dl (70-99); Sodium 140 mmol/L (136-145)
[2020-10-23 16:20] LABS: Alkaline Phosphatase 83 U/L (45-117); Bilirubin,Total 0.5 mg/dl (0.2-1); Globulin 3.8 gm/dl (2.5-4.0); Total Protein 7.5 gm/dl (6.4-8.2); Troponin I < 0.015 ng/ml (0-0.045)
[2020-10-23 16:27] LABS: Basophils % (auto) 0.2 %; Eosinophils # (auto) 0.55 K/uL (0-0.5); Eosinophils % (auto) 0.5 %; Immature Granulocytes # (auto) 0.16 K/uL (0.00-0.02); Immature Granulocytes % (auto) 0.1 %; Lymphocytes # (auto) 107.02 K/uL (1.2-3.4); Lymphocytes % (auto) 92.3 %; Monocytes % (auto) 1.9 %; Neutrophils # (auto) 5.82 K/uL (1.4-6.5); Smudge Cells Present
[2020-10-23 16:54] LABS: INR 1.1 (0.9-1.1); Partial Thromboplastin Time 26.7 Seconds (21.0-31.0); Prothrombin Time 11.4 Seconds (9.0-12.0)
[2020-10-23 16:55] LABS: Potassium 4.3 mmol/L (3.5-5.1)
[2020-10-23 17:00] LABS: Magnesium 2.3 mg/dl (1.8-2.4)
[2020-10-23 17:09] LABS: Appearance Urine Clear (Clear); Bacteria Urine Automated Negative (Negative); Bilirubin Urine Negative (Negative); Blood Urine Trace (Negative); Cast Urine Automated 0 /lpf (0-5); Color Urine Yellow; Glucose Urine UA 1+ (Negative); Ketones Urine Negative (Negative); Leukocyte Esterase Urine Negative (Negative); Nitrite Urine Negative (Negative); Protein Urine 1+ (Negative); RBC Urine Automated 0-4 /hpf (0-4); Specific Gravity Urine 1.013 (1.000-1.030); Urobilinogen Urine Negative (Negative); pH Urine 6.5 (4.5-7.5)
[2020-10-23] MEDS ORDERED: OPTIRAY 320 125ml IV ONE (17:27)
--- NOTE | 2020-10-23 17:57 | CT Scan Report ---
UNENHANCED CT OF THE BRAIN; CT ANGIOGRAM OF THE BRAIN; CT ANGIOGRAM OF THE NECK CLINICAL HISTORY: Strokelike symptoms. COMPARISON STUDY: CT of the brain dated 06/09/2018. MR angiogram of the brain and neck dated 01/09/[address] of the neck dated 05/10/2017. TECHNIQUE: Unenhanced axial CT scan of the brain is performed. Subsequently, following the IV adminis tration of 120 of [address] 320, CT angiogram of the head and neck was performed from the aortic arch t o the vertex. Images are reviewed in the axial, sagittal, and coronal planes. 3-D MIPS images are cre ated and assessed. IV contrast was administered without complication. All measurements were calculate d based on NASCET criteria. A dose lowering technique was utilized adhering to the principles of ALA RA. CT DOSE: 1173.49 mGy.cm FINDINGS: Brain parenchyma: There is age-related involutional change noting moderate subcortical and periventri cular microangiopathic disease. There is no hemorrhage, mass effect, or evidence of acute territorial ischemia by CT criteria. There is no evidence of enhancing mass lesion on the angiogram phase images . The ventricles, sulci, and cisterns are prominent second or to involutional change. A chronic lacun ar infarct is noted in the left caudate head. Spencer-white matter differentiation is preserved. No extr a-axial fluid collection is seen. Thoracic aorta: There is atherosclerotic calcification of the thoracic aorta. A stent graft is partia lly imaged. The aortic arch demonstrates standard 3-vessel anatomy. Right carotid arterial system: The right common carotid artery is widely patent, as are the right int ernal and external carotid arteries. Advanced atherosclerotic plaque is seen in the carotid bulb. Left carotid arterial system: The left common carotid artery is widely patent, as are the left recording [employer] al and external carotid arteries. Advanced atherosclerotic plaque is seen in the carotid bulb. 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 Vertebral arteries: The vertebral arteries are widely patent and codominant. Subclavian arteries: Widely patent bilaterally. Intracranial vasculature: There is atherosclerotic calcification of the cavernous carotid and vertebr al arteries. There is origin of the right posterior cerebral artery. The right A1 segment is at retic. The internal carotid arteries are patent at the skull base, as are the anterior and middle cer ebral arteries bilaterally. The vertebrobasilar system and posterior cerebral arteries are widely pat ent. The vertebral arteries are codominant. There is no aneurysm, high-grade stenosis, or focal vesse l cut off seen throughout the intracranial circulation. Jugular veins: Patent bilaterally. Dural sinuses: There is no evidence of dural sinus thrombosis. The left transverse sinus is atretic. Venous collaterals supply the left sigmoid sinus. This is unchanged from 2011. Lung apices: Emphysematous change is seen in the upper lobes. There is biapical scarring. Upper lobe lung parenchyma is otherwise clear as imaged. Secretions are noted in the trachea. Prominent lymph no zuleyma in the superior mediastinum measure up to 6 mm in short axis. Soft tissues: The visualized pharyngeal soft tissues are normal in appearance noting angiographic pha se technique. The oropharyngeal airway appears widely patent. The salivary and thyroid glands are nor mal in appearance. There is bilateral cervical chain and supraclavicular lymphadenopathy. The largest node in the right cervical chain is seen on image #162 and measures 1.9 x 1.1 cm. The largest node i n the left cervical chain measures 1.7 x 0.8 cm as seen on image #214. Skeletal structures: The skeletal structures are osteopenic. The calvarium appears intact. The cervic al spine is maintained noting multilevel spondylosis. No lytic or blastic lesion is seen. Orbits: The bony orbit are intact. Orbital contents are normal as visualized noting previous bilatera l ocular lens surgery. Sinuses and mastoids: Trace mucosal thickening is seen in the right maxillary antrum and the ethmoid sinuses. The remaining paranasal sinuses are clear. The mastoid air cells are well pneumatized. IMPRESSION: 1. There is no hemorrhage, mass effect, or evidence of acute territorial ischemia by CT criteria. 2. Unremarkable CT angiogram of the brain. 3. 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 T his is similar to prior studies. 4. Otherwise unremarkable CT angiogram of the neck noting advanced atherosclerotic change. There is n o significant carotid artery stenosis. 5. Advanced emphysema. 6. There is bilateral cervical chain and supraclavicular lymphadenopathy. This suggests a lymphoproli ferative disorder. Correlation with the patient's medical/oncological history will be required. 7. Additional findings as above. ACT 112: Negative or not required by law. Electronically signed by: Jason Francois M.D. 10/23/2020 5:56 PM
[2020-10-23] MEDS ORDERED: PHARMACIST DISCHARGE MED REC CONSULT PRN (20:59)
[2020-10-23] MEDS ORDERED: ONDANSETRON INJ 2 MG/ML 2 ML VIAL IV PRN (20:59)
[2020-10-23] MEDS ORDERED: ENOXAPARIN INJ 30 MG/0.3 ML SYR SQ SCH (21:00)
[2020-10-23] MEDS ORDERED: ATORVASTATIN 40 MG TAB PO SCH (21:00)
[2020-10-23] MEDS ORDERED: ACETAMINOPHEN 325 MG TAB PO PRN (21:06)
--- NOTE | 2020-10-23 21:26 | History & Physical Report ---
Date of Service October 23, 2020 Assessment & Plan (1) CVA (cerebral vascular accident): Primary presenting symptoms of dysarthria, difficulty swallowing and change in quality of speech are improving but still present in the ED CT of brain was negative for acute event. CTA head neck showed no acute findings, but did show a stable 1.8 cm diameter left carotid bulb dilation MRI of brain without contrast showed a small acute to subacute lacunar infarct centered in the right rain radiata. Continue aspirin 325 mg p.o. every morning. Stroke without TPA protocol order set. Consult PT/OT/speech therapy. Consult neurology, will let them decide upon addition of clopidogrel in the a.m. Present on Admission?: Yes (2) CLL (chronic lymphocytic leukemia): WBC has gradually increased over time, with increase to 115.95 upon admission. Discussed with heme-onc value of leukopheresis or any other type of intervention, and they report that typically this is not usually done until the counts are around 200 Present on Admission?: Yes (3) Hypertension: Allow permissive hypertension this evening. Hold valsartan pending blood pressure review overnight. Present on Admission?: Yes (4) Hyperlipidemia: Increase atorvastatin from 40 to 80 mg daily Present on Admission?: Yes (5) BPH (benign prostatic hyperplasia): Continue tamsulosin 0.4 mg p.o. daily Present on Admission?: Yes Admission and Anticipated Discharge Date Admission Date: October 23, 2020 History of Present Illness Chief Complaint: The patient presents to the emergency department with concerns regarding the development early this morning after awakening from sleep, difficulty with swallowing, difficulty with speech and voice quality. Primary Care Provider: Christopher Kearns MD The patient is a an 85-year-old male with a past medical history including hypertension, CLL, right inguinal hernia, CVA, status post thoracic aortic aneurysm repair with aortic stent graft, hypertension, hyperlipidemia, GERD, right bundle branch block, BPH, carotid artery stenosis, mixed conductive and sensorineural hearing loss of right ear with restricted hearing of left ear, and osteoporosis. The patient reports that after awakening at 7:00 this morning, he had difficulty swallowing his pills, and then around 10 AM while he was eating cereal, he noted cereal falling out of his mouth. When he called his friend later on the phone, he had difficulty with speech and voice quality, and was encouraged to come to the emergency department for assessment. Allergies Allergy/AdvReac Type Severity Reaction Status Date / Time KVNG Inhibitors AdvReac Mild Cough Verified 10/23/20 17:00 codeine AdvReac Mild Nausea Verified 10/23/20 17:00 Home Medications Medication Instructions Recorded Confirmed Type aspirin 325 mg PO QAM 05/16/19 10/23/20 History calcium carbonate-vitamin D3 1 tab PO BID 05/16/19 10/23/20 History [Calcium 600 + D(3)] cholecalciferol (vitamin D3) 2,000 unit PO QAM 05/16/19 10/23/20 History [Vitamin D3] ibuprofen 200 - 400 mg PO Q6H PRN 05/16/19 10/23/20 History acetaminophen 500 mg capsule 500 mg PO Q6H PRN 07/23/19 10/23/20 History tamsulosin 0.4 mg capsule 0.4 mg PO QAM #90 cap 02/03/20 10/23/20 Rx atorvastatin 40 mg PO HS 06/07/20 10/23/20 History fluticasone propionate 2 spray INTRANASAL DAILY PRN 07/21/20 10/23/20 History valsartan 160 mg tablet 160 mg PO QAM #90 tab 10/14/20 10/23/20 Rx Past Med/Surg History Medical History Aortic aneurysm s/p TEVAR (05/2019) Bifascicular block chronic, dating back to at least 08/2018 per chart review Bilateral inguinal hernia CAD (coronary artery disease) per remote records, non-obstructive Carotid artery disease s/p left carotid endarterectomy (2013) CLL (chronic lymphocytic leukemia) Hearing deficit History of seizure felt r/t hypoglycemic episodes (last ) History of stroke 2008 - no residual effects Hyperlipidemia Hypertension Hypoglycemia Left renal mass Osteoporosis Surgical History H/O right inguinal hernia repair (08/03/20) Open right inguinal hernia repair. Dr. Wright 08/03/2020 H/O thoracic aortic aneurysm repair TEVAR: 05/28/19: Grade 2 view, MAC#3, ETT 7.5 at [facility] Hip fracture requiring operative repair LEFT 06/10/18: MAC#3, ETT#7.5, HiLo Oral, Grade 1 View History of carotid endarterectomy LEFT 2014 History of cataract surgery BOTH History of hernia surgery LEFT INGUINAL 1980 History of left hip replacement History of right hip replacement 08/18/18: MAC #3, ETT #7.5, HiLo, Grade 2 View with anterior pressure History of tonsillectomy 194 Hx of nasal polypectomy 1949 Nausea and vomiting after administration of anesthetic agent Status post incision and drainage (06/26/20) incision and drainage in the office of the left posterior thigh abscess 06/26/20 Dr. Wright in office Family History Brother Colorectal cancer Father Heart disease Stroke Other Hypertension Denies family history of Ovarian cancer Prostate cancer Myocardial infarction Breast cancer Social History Smoking Status: Former smoker Tobacco Type: Cigarettes packs per day: 0.75; Years Smoked: 50; Cigarettes Per Day: <1/2 ppd x 50 years; Second Hand Exposure: No; Do You Dip or Chew Tobacco: No; Hx Alcohol Use: Yes Alcohol type: beer and wine Alcohol Intake Frequency: 4 or More x per/Week Alcohol Intake Frequency Comment: 14 Hx Substance Use: No Preferred Language: Thai Communication Ability: Effective Visual Impairment: No 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: No Beliefs That Will Affect Care: None marital status: Current Living Situation: Alone current occupational status: retired How many Children do You have: 0 Other Information That Helps Us Care for You: No Feels Safe at Home: Yes Safety Concerns: Feels Safe At This Time Childhood Exposure to Second-Hand Smoke: Yes Dental Care, Regularly: Yes Physical Activity Frequency: 1-2 Times per Week Seatbelt Use: always Sunscreen Use: No Assistive Devices: Denture - Upper, Denture - Lower, Glasses, Hearing Aid - Bilateral and Hearing Aid - Left Review of Systems Review of Systems: The patient denies chest pain, palpitations, shortness of breath, dyspnea on exertion, cough, lower extremity swelling, sore throat, fevers, chills, sweats, nausea, vomiting, diarrhea , constipation, abdominal pain, pelvic pain, blood in urine or stool, dysuria, urinary frequency or urgency, lightheadedness, dizziness, headache, memory loss, loss of consciousness, rash, abnormal bruising or bleeding, imbalance, focal or generalized weakness, numbness or tingling in arms or legs, generalized arthralgias or myalgias, back or neck pain, or night sweats. The review of systems is otherwise negative other than for that already noted above, and at least 10 systems have been reviewed. Physical Exam Physical Exam: The patient is awake, alert and oriented 3, well developed and well nourished, normocephalic and atraumatic, lying in bed and in no acute distress. HEENT--PERRL, EOMI, mucous membranes and oropharynx normal. Neck--supple. No JVD. No bruits. Thyroid normal, trachea midline, no adenopathy. Heart--normal S1 and S2. No murmurs, rubs or gallops. Lungs--clear bilaterally, no respiratory distress, no accessory muscle use. Abdomen--normal bowel sounds and soft. Nontender. Nondistended, no hernias or masses, no organomegaly. Extremities--no cyanosis or clubbing. No edema. There are good distal pulses b/l. Dermatologic--normal skin turgor, normal color, no abnormal lymph nodes, no rash. Neurologic--cranial nerves II through XII grossly intact. Rheumatologic--normal range of motion. Psychiatric--normal affect. Results & Data Results & Data ([facility]) Vital Signs (Past 12 Hours) Vital Signs Temp Pulse Resp BP Pulse Ox 10/23/20 19:50 64 21 96 10/23/20 19:40 68 22 95 10/23/20 19:31 66 27 H 10/23/20 19:30 64 21 177/76 H 10/23/20 19:27 71 22 182/104 H 96 10/23/20 19:20 66 23 96 10/23/20 19:10 64 19 95 10/23/20 19:00 64 18 96 10/23/20 18:50 65 18 96 10/23/20 18:40 70 19 96 10/23/20 18:30 66 20 95 10/23/20 18:20 66 21 95 10/23/20 18:10 66 19 96 10/23/20 18:01 63 15 97 10/23/20 18:00 63 20 138/100 96 10/23/20 17:50 63 18 97 10/23/20 17:01 67 21 133/107 H 95 10/23/20 16:30 63 22 189/83 H 96 10/23/20 16:29 64 20 130/96 96 10/23/20 15:18 97.3 F L 60 19 206/83 H 97 Laboratory Results Laboratory Results WBC 115.95 K/uL (4.8-10.8) H* 10/23/20 15:20 RBC 4.79 M/uL (4.7-6.1) 10/23/20 15:20 Hgb 14.9 g/dL (14.0-18.0) 10/23/20 15:20 Hct 46.0 % (42-52) 10/23/20 15:20 MCV 96.0 fL (80-100) 10/23/20 15:20 MCH 31.1 pg (25-34) 10/23/20 15:20 MCHC 32.4 g/dL (32-36) 10/23/20 15:20 RDW Std Deviation 51.4 fL (36.4-46.3) H 10/23/20 15:20 RDW Coeff of Jewel 14.9 % (11.5-14.5) H 10/23/20 15:20 Plt Count 153 K/uL (130-400) 10/23/20 15:20 MPV 11.5 fL (7.4-10.4) H 10/23/20 15:20 Immature Gran % (Auto) 0.1 % 10/23/20 15:20 Neut % (Auto) 5.0 % 10/23/20 15:20 Lymph % (Auto) 92.3 % 10/23/20 15:20 [place] % (Auto) 1.9 % 10/23/20 15:20 Eos % (Auto) 0.5 % 10/23/20 15:20 Baso % (Auto) 0.2 % 10/23/20 15:20 Neut # (Auto) 5.82 K/uL (1.4-6.5) 10/23/20 15:20 Lymph # (Auto) 107.02 K/uL (1.2-3.4) H 10/23/20 15:20 [place] # (Auto) 2.20 K/uL (0.11-0.59) H 10/23/20 15:20 Eos # (Auto) 0.55 K/uL (0-0.5) H 10/23/20 15:20 Baso # (Auto) 0.20 K/uL (0-0.2) 10/23/20 15:20 Immature Gran # (Auto) 0.16 K/uL (0.00-0.02) H 10/23/20 15:20 Smudge Cells Present 10/23/20 15:20 PT 11.4 Seconds (9.0-12.0) 10/23/20 16:34 INR 1.1 (0.9-1.1) 10/23/20 16:34 APTT 26.7 Seconds (21.0-31.0) 10/23/20 16:34 PTT Ratio 1.0 10/23/20 16:34 Sodium 140 mmol/L (136-145) 10/23/20 15:20 Potassium 4.3 mmol/L (3.5-5.1) 10/23/20 16:34 Chloride 108 mmol/L (98-107) H 10/23/20 15:20 Carbon Dioxide 27 mmol/L (21-32) 10/23/20 15:20 Anion Gap 5.0 (3-11) 10/23/20 15:20 BUN 31 mg/dl (7-18) H 10/23/20 15:20 Creatinine 1.59 mg/dl (0.6-1.4) H 10/23/20 15:20 Est Cr Clr Drug Dosing 32.1 ml/min 10/23/20 15:20 Est GFR ( Amer) 45.8 10/23/20 15:20 Est GFR (Non-Af Amer) 39.6 10/23/20 15:20 BUN/Creatinine Ratio 19.4 (10-20) 10/23/20 15:20 Glucose 142 mg/dl (70-99) H 10/23/20 15:20 POC Glucose 138 mg/dl (70-99) H 10/23/20 15:29 Calcium 10.2 mg/dl (8.5-10.1) H 10/23/20 15:20 Magnesium 2.3 mg/dl (1.8-2.4) 10/23/20 16:34 Total Bilirubin 0.5 mg/dl (0.2-1) 10/23/20 15:20 AST 25 U/L (15-37) 10/23/20 16:34 ALT 41 U/L (12-78) 10/23/20 15:20 Alkaline Phosphatase 83 U/L (45-117) 10/23/20 15:20 Total Creatine Kinase 51 U/L (39-308) 10/23/20 16:34 Troponin I < 0.015 ng/ml (0-0.045) 10/23/20 15:20 Total Protein 7.5 gm/dl (6.4-8.2) 10/23/20 15:20 Albumin 3.7 gm/dl (3.4-5.0) 10/23/20 15:20 Globulin 3.8 gm/dl (2.5-4.0) 10/23/20 15:20 Albumin/Globulin Ratio 1.0 (0.9-2) 10/23/20 15:20 Urine Color Yellow 10/23/20 16:25 Urine Appearance Clear (Clear) 10/23/20 16:25 Urine pH 6.5 (4.5-7.5) 10/23/20 16:25 Ur Specific [place] 1.013 (1.000-1.030) 10/23/20 16:25 Urine Protein 1+ (Negative) H 10/23/20 16:25 Urine Glucose (UA) 1+ (Negative) H 10/23/20 16:25 Urine Ketones Negative (Negative) 10/23/20 16:25 Urine Blood Trace (Negative) H 10/23/20 16:25 Urine Nitrite Negative (Negative) 10/23/20 16:25 Urine Bilirubin Negative (Negative) 10/23/20 16:25 Urine Urobilinogen Negative (Negative) 10/23/20 16:25 Ur Leukocyte Esterase Negative (Negative) 10/23/20 16:25 Urine WBC (Auto) 1-5 /hpf (0-5) 10/23/20 16:25 Urine RBC (Auto) 0-4 /hpf (0-4) 10/23/20 16:25 U Hyaline Cast (Auto) 0 /lpf (0-5) 10/23/20 16:25 U Epithel Cells (Auto) 5-10 /lpf (0-5) H 10/23/20 16:25 Urine Bacteria (Auto) Negative (Negative) 10/23/20 16:25 COVID-19 Eval Order Covid19 [facility]Now [facility] 10/23/20 17:45 SARS-CoV-2, RNA, NAAT NEGATIVE (NEGATIVE) 10/23/20 17:45 Diagnostic Findings [facility], [id number] XRay Report Patient: MIAN PRETTYAdmit Date: 10/23/20MR#: [id number]: [address] VANE[address]ASp[address]itot ID:[id number]: Date: 1935[facility] Zip: [place], [place] [address]Gpn: 85Location: EDSex: MRoom/Bed:Att Phy:Diagnosis: STROKE SXPri Phy: Christopher Kearns, KAMRANervice Date: 10/23/20Fa Phy:Interpreting Phy: Danish Estes MDAdmit Phy: Ordering Phy: Brenda Espino DO cc: ~ XR chest 1V portable CLINICAL HISTORY: Stroke Like Symptoms COMPARISON STUDY: 08/17/2018 FINDINGS: The heart is borderline enlarged. There is a descending thoracic aortic stent graft. There is mild elevation/eventration right hemidiaphragm. There is no failure. There is no focal pulmonary consolidation. There are no significant pleural effusions.[ IMPRESSION: No active disease in the chest. ACT 112: Negative or not required by law. Electronically signed by: Danish Estes M.D. 10/23/2020 3:53 PM Dictated: 10/23/20 1551Transcribed: 10/23/20 1551 [facility], [id number] CT Scan Report Patient: MIAN PRETTYAdmit Date: 10/23/20MR#: [id number]: [address] ID:[id number]: Date: 1935[facility] Zip: [place], [place] [address]Asy: 85Location: EDSex: MRoom/Bed:Att Phy:Diagnosis: STROKE SXPri Phy: Christopher Kearns, MDService Date: 10/23/20Fa Phy:Interpreting Phy: Jason Francois [facility] Phy: Ordering Phy: Brenda Espino DO cc: ~ UNENHANCED CT OF THE BRAIN; CT ANGIOGRAM OF THE BRAIN; CT ANGIOGRAM OF THE NECK CLINICAL HISTORY: Strokelike symptoms. COMPARISON STUDY: CT of the brain dated 06/09/2018. MR angiogram of the brain and neck dated 01/09/2011. CT of the neck dated 05/10/2017. TECHNIQUE: Unenhanced axial CT scan of the brain is performed. Subsequently, following the IV administration of 120 of Optiray 320, CT angiogram of the head and neck was performed from the aortic arch to the vertex. Images are reviewed in the axial, sagittal, and coronal planes. 3-D MIPS images are created and assessed. IV contrast was administered without complication. All measurements were calculated based on NASCET criteria. A dose lowering technique was utilized adhering to the principles of ALARA. CT DOSE: 1173.49 mGy.cm FINDINGS: Brain parenchyma: There is age-related involutional change noting moderate subcortical and periventricular microangiopathic disease. There is no hemorrhage, mass effect, or evidence of acute territorial ischemia by CT criteria. There is no evidence of enhancing mass lesion on the angiogram phase images. The ventricles, sulci, and cisterns are prominent second or to involutional change. A chronic lacunar infarct is noted in the left caudate head. Spencer-white matter differentiation is preserved. No extra-axial fluid collection is seen. Thoracic aorta: There is atherosclerotic calcification of the thoracic aorta. A stent graft is partially imaged. The aortic arch demonstrates standard 3-vessel anatomy. Right carotid arterial system: The right common carotid artery is widely patent, as are the right internal and external carotid arteries. Advanced atherosclerotic plaque is seen in the carotid bulb. Left carotid arterial system: The left common carotid artery is widely patent, as are the left internal and external carotid arteries. Advanced atherosclerotic plaque is seen in the carotid bulb. 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 Vertebral arteries: The vertebral arteries are widely patent and codominant. Subclavian arteries: Widely patent bilaterally. Intracranial vasculature: There is atherosclerotic calcification of the cavernous carotid and vertebral arteries. There is origin of the right posterior cerebral artery. The right A1 segment is atretic. The internal carotid arteries are patent at the skull base, as are the anterior and middle cerebral arteries bilaterally. The vertebrobasilar system and posterior cerebral arteries are widely patent. The vertebral arteries are codominant. There is no aneurysm, high-grade stenosis, or focal vessel cut off seen throughout the intracranial circulation. Jugular veins: Patent bilaterally. Dural sinuses: There is no evidence of dural sinus thrombosis. The left transverse sinus is atretic. Venous collaterals supply the left sigmoid sinus. This is unchanged from 2011. Lung apices: Emphysematous change is seen in the upper lobes. There is biapical scarring. Upper lobe lung parenchyma is otherwise clear as imaged. Secretions are noted in the trachea. Prominent lymph nodes in the superior mediastinum measure up to 6 mm in short axis. Soft tissues: The visualized pharyngeal soft tissues are normal in appearance noting angiographic phase technique. The oropharyngeal airway appears widely p atent. The salivary and thyroid glands are normal in appearance. There is bilateral cervical chain and supraclavicular lymphadenopathy. The largest node in the right cervical chain is seen on image #162 and measures 1.9 x 1.1 cm. The largest node in the left cervical chain measures 1.7 x 0.8 cm as seen on image #214. Skeletal structures: The skeletal structures are osteopenic. The calvarium appea rs intact. The cervical spine is maintained noting multilevel spondylosis. No lytic or blastic lesion is seen. Orbits: The bony orbit are intact. Orbital contents are normal as visualized noting previous bilateral ocular lens surgery. Sinuses and mastoids: Trace mucosal thickening is seen in the right maxillary antrum and the ethmoid sinuses. The remaining paranasal sinuses are clear. The mastoid air cells are well pneumatized. IMPRESSION: 1. There is no hemorrhage, mass effect, or evidence of acute territorial ischemia by CT criteria. 2. Unremarkable CT angiogram of the brain. 3. 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 This is similar to prior studies. 4. Otherwise unremarkable CT angiogram of the neck noting advanced athero sclerotic change. There is no significant carotid artery stenosis. 5. Advanced emphysema. 6. There is bilateral cervical chain and supraclavicular lymphadenopathy. This suggests a lymphoproliferative disorder. Correlation with the patient's medical/oncological history will be required. 7. Additional findings as above. ACT 112: Negative or not required by law. Electronically signed by: Jason Francois M.D. 10/23/2020 5:56 PM Dictated: 10/23/201739Transcribed: 10/23/201739 [facility], [id number] Magnetic Resonance Report Patient: MIAN PRETTYAdmyoni Date: 10/23/20#: [id number]: [address] [facility][id number]: [facility]: 1935[facility] Zip: [place], [place] [address]Bwl: 85Location: 2SSex: MRoom/Bed: [id number] Phy: Edis Bhatti M.D.Diagnosis: DYSARTHRIAPri Phy: Christopher Kearns MDService Date: 10/23/20Fam Phy:Interpreting Phy: Jason Francois MDAdmit Phy: Edis Orr M.D. Ordering Phy: Edis Orr M.D. cc: ~ MRI OF THE BRAIN WITHOUT IV CONTRAST CLINICAL HISTORY: Dysarthria. COMPARISON STUDY: CT of the brain dated 10/23/2020. TECHNIQUE: MRI of the brain was performed utilizing various T1 and T2-weighted sequences in the axial, sagittal, and coronal planes. IV contrast was not administered for this examination. FINDINGS: Brain parenchyma: There is a 10 mm focus of restricted diffusion identified in the right rain radiata consistent with an acute to subacute lacunar infarct. No additional foci of restricted diffusion are identified. There is no hemorrhage or mass effect. There is age-related involutional change noting moderate subcortical and periventricular microangiopathic disease. Left occipital encephalomalacia is consistent with a remote insult. Spencer-white matter differentiation is preserved. No extra-axial fluid collection is seen. The cerebellar tonsils are normal in configuration. Ventricles, sulci, and cisterns: Prominent secondary to involutional change. Pituitary and sella: Unremarkable. Intracranial vasculature: Normal flow voids are maintained at the skull base. Orbits: The bony orbits are grossly intact. Orbital contents are normal in appearance noting bilateral ocular lens implants. Sinuses and mastoids: There is a small left mastoid effusion. The right mastoid air cells are clear. Mild mucosal thickening is noted in the ethmoid sinuses. Polyposis is suggested in the anterior nasopharynx. Calvarium: Unremarkable. Cervical cord: Partially visualized cervical spinal cord is normal in morphology and signal intensity. Soft tissues: Bilateral cervical adenopathy is noted. IMPRESSION: 1. Findings are consistent with a small acute to subacute lacunar infarct centered in the right rain radiata. 2. No additional foci of acute ischemia are identified. 3. There is no hemorrhage or mass effect. 4. Cervical lymphadenopathy is noted. 5. Additional findings as above. ACT 112: Negative or not required by law. Electronically signed by: Jason Francois M.D. 10/23/2020 11:15 PM Dictated: 10/23/202308Transcribed: 10/23/202308 Code Status & VTE Plan Code Status Full code VTE Prophylaxis Plan VTE Prophylaxis will be ordered: Yes PG Care Time/CCT Total # of Minutes Spent Total Time Spent with Patient: Total time spent is greater than 50% in coordination of care (as documented) at patient's floor/unit and/or counseling patient: Coding Level of Care Code 62949 OBS Care - Level 3 Diagnoses CVA (cerebral vascular accident) I63.9 CVA mechanism: unspecified CLL (chronic lymphocytic leukemia) C91.90 Hypertension I10 Hypertension type: essential hypertension Hyperlipidemia E78.5 Hyperlipidemia type: unspecified BPH (benign prostatic hyperplasia) N40.0 Lower urinary tract symptom presence: unspecified whether lower urinary tract symptoms present (1) CVA (cerebral vascular accident) CVA mechanism: unspecified Qualified Code(s): I63.9 - Cerebral infarction, unspecified (2) Hypertension Hypertension type: essential hypertension Qualified Code(s): I10 - Essential (primary) hypertension (3) Hyperlipidemia Hyperlipidemia type: unspecified Qualified Code(s): E78.5 - Hyperlipidemia, unspecified (4) BPH (benign prostatic hyperplasia) Lower urinary tract symptom presence: unspecified whether lower urinary tract symptoms present Qualified Code(s): N40.0 - Benign prostatic hyperplasia without lower urinary tract symptoms
--- NOTE | 2020-10-23 23:16 | Magnetic Resonance Report ---
MRI OF THE BRAIN WITHOUT IV CONTRAST CLINICAL HISTORY: Dysarthria. COMPARISON STUDY: CT of the brain dated 10/23/2020. TECHNIQUE: MRI of the brain was performed utilizing various T1 and T2-weighted sequences in the axial , sagittal, and coronal planes. IV contrast was not administered for this examination. FINDINGS: Brain parenchyma: There is a 10 mm focus of restricted diffusion identified in the right rain radia ta consistent with an acute to subacute lacunar infarct. No additional foci of restricted diffusion a re identified. There is no hemorrhage or mass effect. There is age-related involutional change noting moderate subcortical and periventricular microangiopathic disease. Left occipital encephalomalacia i s consistent with a remote insult. Spencer-white matter differentiation is preserved. No extra-axial flu id collection is seen. The cerebellar tonsils are normal in configuration. Ventricles, sulci, and cisterns: Prominent secondary to involutional change. Pituitary and sella: Unremarkable. Intracranial vasculature: Normal flow voids are maintained at the skull base. Orbits: The bony orbits are grossly intact. Orbital contents are normal in appearance noting bilatera l ocular lens implants. Sinuses and mastoids: There is a small left mastoid effusion. The right mastoid air cells are clear. Mild mucosal thickening is noted in the ethmoid sinuses. Polyposis is suggested in the anterior nasop harynx. Calvarium: Unremarkable. Cervical cord: Partially visualized cervical spinal cord is normal in morphology and signal intensity . Soft tissues: Bilateral cervical adenopathy is noted. IMPRESSION: 1. Findings are consistent with a small acute to subacute lacunar infarct centered in the right coron a radiata. 2. No additional foci of acute ischemia are identified. 3. There is no hemorrhage or mass effect. 4. Cervical lymphadenopathy is noted. 5. Additional findings as above. ACT 112: Negative or not required by law. Electronically signed by: Jason Francois M.D. 10/23/2020 11:15 PM
[2020-10-24 06:41] LABS: Estimated Average Glucose 108 mg/dl; Hemoglobin A1C 5.4 % (4.5-5.6)
[2020-10-24 06:59] LABS: Hematocrit (blood only) 43.2 % (42-52); Mean Corpuscular Hgb Conc 32.4 g/dL (32-36); Mean Corpuscular Volume 95.6 fL (80-100); Mean Platelet Volume 10.5 fL (7.4-10.4); Platelet Count 127 K/uL (130-400); RDW Coefficient of Variation 14.9 % (11.5-14.5); RDW Standard Deviation 50.8 fL (36.4-46.3); Red Blood Count 4.52 M/uL (4.7-6.1)
[2020-10-24 07:04] LABS: Albumin Globulin Ratio 1.2 (0.9-2); Albumin Level 3.4 gm/dl (3.4-5.0); BUN Creatinine Ratio 15.3 (10-20); Bilirubin,Total 0.6 mg/dl (0.2-1); Calcium 9.2 mg/dl (8.5-10.1); Creatinine Clr Calc Pharmacy 34.4 ml/min; Est GFR (African American) 55.9; Est GFR (Non-African American) 48.2; Globulin 2.9 gm/dl (2.5-4.0); Magnesium 2.3 mg/dl (1.8-2.4); Potassium 3.6 mmol/L (3.5-5.1); Total Protein 6.3 gm/dl (6.4-8.2)
[2020-10-24 07:05] LABS: Basophils # (auto) 0.16 K/uL (0-0.2); Basophils % (auto) 0.2 %; Eosinophils # (auto) 0.51 K/uL (0-0.5); Eosinophils % (auto) 0.5 %; Immature Granulocytes # (auto) 0.17 K/uL (0.00-0.02); Immature Granulocytes % (auto) 0.2 %; Lymphocytes # (auto) 93.32 K/uL (1.2-3.4); Lymphocytes % (auto) 90.5 %; Monocytes # (auto) 2.44 K/uL (0.11-0.59); Monocytes % (auto) 2.4 %; Neutrophils # (auto) 6.51 K/uL (1.4-6.5); Neutrophils % (auto) 6.2 %; RBC Morphology Unremarkable
--- NOTE | 2020-10-24 07:41 | Electrocardiogram Report ---
Test Reason : Blood Pressure : / mmHG Vent. Rate : 064 BPM Atrial Rate : 064 BPM P-R Int : 204 ms QRS Dur : 148 ms QT Int : 448 ms P-R-T Axes : 052 -43 057 degrees QTc Int : 462 ms Sinus rhythm with Premature atrial complexes Left axis deviation Right bundle branch block Abnormal ECG When compared with ECG of 28-JUL-2020 10:58, Premature atrial complexes are now Present Confirmed by Qamar Curry ([id number]) on 10/24/2020 7:41:29 AM Referred By: REFERRED SELF Confirmed By:Qamar Curry
[2020-10-24] MEDS ORDERED: CALCIUM 600MG + VIT D 400 IU TAB PO SCH (09:00)
[2020-10-24] MEDS ORDERED: ASPIRIN 325 MG ECTAB PO SCH (09:00)
[2020-10-24] MEDS ORDERED: CHOLECALCIFEROL 1,000 UNITS 25 MCG TAB PO SCH (09:00)
[2020-10-24] MEDS ORDERED: TAMSULOSIN HCL 0.4 MG CAP PO SCH (09:00)
--- NOTE | 2020-10-24 10:30 | Neurology Consultation ---
Date of Consultation October 24, 2020 Assessment & Plan (1) CLL (chronic lymphocytic leukemia): (2) Stroke: Randal Kline is an 85 yo man w/ PMH of CLL, known AAA s/p TEVAR, L ICA stenosis s/p L CEA, CAD, HTN, HLD, h/o stroke in 2008 without residual deficits and h/o seizure in setting of hypoglycemia who p/t [facility] with acute onset of dysarthria and facial droop. Symptom localization: right basal ganglia Stroke mechanism: lacunar/lipohyalinosis, less likely hypercoagulability in the setting of hematologic cancer Stroke WorkUp: - CT head: no hemorrhage, right occipital arachnoid cyst, small old/chronic infarct in the right parietal lobe - CTA head/neck: shows diffuse intracranial atherosclerosis, mild to moderate stenosis of the left vertebral artery in the V1 segment due to atherosclerotic plaque, right [employer], with no other LVO, high-grade stenosis or aneurysm noted (acute dilation of the left carotid bulb likely due to history of left CEA) - MRI brain: shows chronic infarcts in the right cerebral and right parietal lobe, acute infarct in the right centrum semiovale with extension to the right external capsule, mild generalized atrophy with ex vacuo dilation and moderate SVID. - TTE: pending - Telemetry: pending - A1c: 5.4 - FLP: 45 - Troponin: negative Stroke Management: - Acute treatment: ASA - Continuous cardiac monitoring - Vitals, Neurochecks, NIHSS per unit routine - BP parameters: SBP CAP 180, restart home anti-hypertensives for goal normotension over next 3-4 days - Complete ischemic stroke workup with TTE without bubble - Consult speech, PT, OT for supportive management - Will counselor/art therapist concerning stroke education, smoking cessation, healthy diet, physical activity, weight loss - Follow up with PCP for assistance with outpatient goals (BP <130/80, LDL <70, A1c <7) - Follow up in neurology clinic in 6-8 weeks (with MARION Puente) Secondary Stroke Prevention: - Antiplatelet: change to plavix 75mg daily (if another stroke recurs in the future, would consider changing to lovenox given cancer history) - Anticoagulation: Not indicated at this time - Statin: Atorvastatin 40mg aily HTN: - BP parameters, as above - Restart home medications with goal of lowering BP to normotension over next 3- 4 days FEN/GI: - Diet: NPO until cleared by Speech evaluation - Monitor lytes and replete PRN Glucose Control: - Sliding scale insulin and accuchecks per primary team to avoid hyperglycemia Thank you for this interesting consult. Plan of care was discussed with primary team. Please call with any questions. (3) Hypertension: (4) Hyperlipidemia: History of Present Illness Attending Physician: Angela Franks, History of Present Illness Randal Kline is an 85 yo man w/ PMH of CLL, known AAA s/p TEVAR, L ICA stenosis s/p L CEA, CAD, HTN, HLD, h/o stroke in 2008 without residual deficits and h/o seizure in setting of hypoglycemia who p/t [facility] with acute onset of dysarthria and facial droop. [employer] the evening of 10/21/20. In the ED, he was afebrile, BP two 6/83, heart rate 60, respiratory rate 19, satting 97% on room air. Labs notable for WBC of 15.95, hemoglobin 14.9, platelets 153, sodium 140, creatinine 1.59 with EGFR 39.6, glucose 142, calcium high at 10.2, LFTs within normal, troponin negative, UA no infection, Covid negative. Imaging independently reviewed. CT head shows no hemorrhage, right occipital arachnoid cyst, small old/chronic infarct in the right parietal lobe. CTA head and neck shows diffuse intracranial atherosclerosis, mild to moderate stenosis of the left vertebral artery in the V1 segment due to atherosclerotic plaque, right [employer], with no other LVO, high-grade stenosis or aneurysm noted (acute dilation of the left carotid bulb likely due to history of left CEA). MRI brain shows chronic infarct in the right cerebral and right parietal lobe, acute infarct in the right centrum semiovale with extension to the right external capsule, mild generalized atrophy with ex vacuo dilation and moderate SVID. On examination, he reports that he did not feel well yesterday morning when he woke up and noticed that his speech was slurred. He otherwise denies any headache, weakness or new numbness. He did endorse having intermittent right lower extremity pain that started after his hip replacement. Discussed with him that this is more of a chronic issue and he should discuss this further with his primary care and see may benefit from gabapentin or other neuropathic pain management. Stroke Workflow: Where patient arrived from: home CT ASPECT: 9 Time IV tpa is given: NA tPA bolus: NA tPA dose: NA If tpa not given, why not: Outside of time window If delay >60min after hospital arrival, why: NA If no IA therapy, why not: No LVO on CTA Patient Features: Admission NIHSS:1 Admission Modified [place] Scale: 0-1 Time patient last seen well: evening of 10/21/20 Wake up stroke: Yes Intubation status: Not intubated Stroke Risk Factors: Hypertension: Y Hyperlipidemia: Y Atrial Fib:N Tobacco: Y Diabetes: N Taking NOAC or warfarin: N Allergies Allergy/AdvReac Type Severity Reaction Status Date / Time KVNG Inhibitors AdvReac Mild Cough Verified 10/23/20 17:00 codeine AdvReac Mild Nausea Verified 10/23/20 17:00 Home Medications Medication Instructions Recorded Confirmed Type aspirin 325 mg PO QAM 05/16/19 10/23/20 History calcium carbonate-vitamin D3 1 tab PO BID 05/16/19 10/23/20 History [Calcium 600 + D(3)] cholecalciferol (vitamin D3) 2,000 unit PO QAM 05/16/19 10/23/20 History [Vitamin D3] ibuprofen 200 - 400 mg PO Q6H PRN 05/16/19 10/23/20 History acetaminophen 500 mg capsule 500 mg PO Q6H PRN 07/23/19 10/23/20 History tamsulosin 0.4 mg capsule 0.4 mg PO QAM #90 cap 02/03/20 10/23/20 Rx atorvastatin 40 mg PO HS 06/07/20 10/23/20 History fluticasone propionate 2 spray INTRANASAL DAILY PRN 07/21/20 10/23/20 History valsartan 160 mg tablet 160 mg PO QAM #90 tab 10/14/20 10/23/20 Rx Patient History Medical History Aortic aneurysm s/p TEVAR (05/2019) Bifascicular block chronic, dating back to at least 08/2018 per chart review Bilateral inguinal hernia CAD (coronary artery disease) per remote records, non-obstructive Carotid artery disease s/p left carotid endarterectomy (2013) CLL (chronic lymphocytic leukemia) Hearing deficit History of seizure felt r/t hypoglycemic episodes (last ) History of stroke 2008 - no residual effects Hyperlipidemia Hypertension Hypoglycemia Left renal mass Osteoporosis Surgical History H/O right inguinal hernia repair (08/03/20) Open right inguinal hernia repair. Dr. Wright 08/03/2020 H/O thoracic aortic aneurysm repair TEVAR: 05/28/19: Grade 2 view, MAC#3, ETT 7.5 at [facility] Hip fracture requiring operative repair LEFT 06/10/18: MAC#3, ETT#7.5, HiLo Oral, Grade 1 View History of carotid endarterectomy LEFT 2014 History of cataract surgery BOTH History of hernia surgery LEFT INGUINAL 1979 History of left hip replacement History of right hip replacement 08/18/18: MAC #3, ETT #7.5, HiLo, Grade 2 View with anterior pressure History of tonsillectomy 194 Hx of nasal polypectomy 1950 Nausea and vomiting after administration of anesthetic agent Status post incision and drainage (06/26/20) incision and drainage in the office of the left posterior thigh abscess 06/26/20 Dr. Wright in office Family History Brother Colorectal cancer Father Heart disease Stroke Other Hypertension Denies family history of Ovarian cancer Prostate cancer Myocardial infarction Breast cancer Social History Smoking Status: Former smoker Tobacco Type: Cigarettes packs per day: 0.75; Years Smoked: 50; Cigarettes Per Day: <1/2 ppd x 50 years; Second Hand Exposure: No; Do You Dip or Chew Tobacco: No; Hx Alcohol Use: Yes Alcohol type: beer and wine Alcohol Intake Frequency: 4 or More x per/Week Alcohol Intake Frequency Comment: 14 Hx Substance Use: No Preferred Language: Turkmen Communication Ability: Effective Visual Impairment: No Limitations General Counsel Required: No Beliefs That Will Affect Care: None marital status: Current Living Situation: Alone current occupational status: retired How many Children do You have: 0 Other Information That Helps Us Care for You: No Feels Safe at Home: Yes Safety Concerns: Feels Safe At This Time Childhood Exposure to Second-Hand Smoke: Yes Dental Care, Regularly: Yes Physical Activity Frequency: 1-2 Times per Week Seatbelt Use: always Sunscreen Use: No Assistive Devices: Denture - Upper, Denture - Lower, Glasses, Hearing Aid - Bilateral and Hearing Aid - Left Review of Systems Review of Systems: 14 point review of systems completed and negative except as in HPI. Exam (Neuro) Physical Exam: General Exam: GEN: NAD, sitting in chair HEENT: No conjunctival injection, no rhinorrhea. CV: RRR on monitor, no significant edema. PULM: Nonlabored respirations on room air. Neuro Exam: MS: Awake and Alert. Oriented to person, place, and date. Speech fluent and appropriate + dysarthria, no paraphasic errors. Language intact including naming, comprehension, repetition. Cognition and memory grossly intact. Attention intact. No neglect. CN: Visual edwards full, + blink to threat bilaterally. No extinction to double simultaneous stimuli. Unable to visualize fundi on fundoscopic exam. PERRLA OU. EOMI without nystagmus. Facial sensation intact to LT. Facial muscles full and symmetric. Hearing intact to finger rub bilaterally. Uvula midline with symmetric palatal elevation. Shoulder shrug normal. Tongue midline. MOTOR: Normal bulk and tone. No pronator drift. BUE strength 5/5 at deltoids, biceps, triceps, wrist flexors and extensors, and finger flexors bilaterally. BLE strength 5/5 at iliopsoas, hamstrings, quadriceps, tibialis anterior, and gastrocnemius bilaterally. REFLEXES: 1+ at biceps, triceps, brachioradialis, 1+ patella, and absent Achilles bilaterally. Flexor plantar responses bilaterally. SENSORY: Intact to LT/vibration throughout, no extinction to double simultaneous stimuli. COORDINATION: No dysmetria or ataxia on [id number] bilaterally. Normal Lester bilaterally. GAIT: Deferred due to physical status. NIH STROKE SCALE 1A. Level of Consciousness (0-3) = 0 1B. LOC Questions (0-2) = 0 1C. LOC Commands (0-2) = 0 2. Best Horizontal Gaze (0-2) = 0 3. Visual Edwards (0-3) = 0 4. Facial Palsy (0-3) = 0 5. Motor Arm Right (0-4) = 0 Left (0-4) = 0 6. Motor Leg Right (0-4) = 0 Left (0-4) = 0 7. Limb Ataxia (0-2) = 0 8. Sensory (0-2) = 0 9. Best Language (0-3) = 0 10. Dysarthria (0-2) = 1 11. Extinction and Inattention (0-2) = 0 NIHSS TOTAL = 1 Results & Data ([facility]) Vital Signs (Past 12 Hours) Vital Signs Temp Pulse Pulse Resp BP Pulse Ox 10/24/20 08:00 68 10/24/20 07:24 36.9 C 59 L 18 118/62 95 10/24/20 03:47 36.8 C 80 18 135/66 94 10/24/20 00:00 80 10/23/20 23:41 36.4 C L 66 18 117/76 94 PG Care Time/CCT Total # of Minutes Spent Total Time Spent with Patient: Total time spent is greater than 50% in coordination of care (as documented) at patient's floor/unit and/or counseling patient: Coding Level of Care Code 11571 OBS Care - Level 3 Diagnoses CLL (chronic lymphocytic leukemia) C91.90 Stroke I63.9 Hypertension I10 Hypertension type: essential hypertension Hyperlipidemia E78.5 Hyperlipidemia type: unspecified (1) Hyperlipidemia Hyperlipidemia type: unspecified Qualified Code(s): E78.5 - Hyperlipidemia, unspecified (2) Hypertension Hypertension type: essential hypertension Qualified Code(s): I10 - Essential (primary) hypertension
[2020-10-24] MEDS ORDERED: STROKE PATIENT DISCHARGE STA (17:06)
--- NOTE | 2020-10-24 17:12 | Discharge Summary ---
Date of Service October 24, 2020 Admission HPI Per Admitting Provider The patient is a an 85-year-old male with a past medical history including hypertension, CLL, right inguinal hernia, CVA, status post thoracic aortic aneurysm repair with aortic stent graft, hypertension, hyperlipidemia, GERD, right bundle branch block, BPH, carotid artery stenosis, mixed conductive and sensorineural hearing loss of right ear with restricted hearing of left ear, and osteoporosis. The patient reports that after awakening at 7:00 this morning, he had difficulty swallowing his pills, and then around 10 AM while he was eating cereal, he noted cereal falling out of his mouth. When he called his friend later on the phone, he had difficulty with speech and voice quality, and was encouraged to come to the emergency department for assessment. Principal Diagnosis Pt states he feels much improved. He still has a bit of a lag in his swallow and his speech, but mostly resolved. He would like to go home. No issues eating. Pt denies fever, SOB, chest pain, abd pain, n/v/c/d, LE pain or swelling. Discharge Exam Constitutional WD/WN, vitals as above Eyes normal visual chinchilla by confrontation and + anicteric sclerae Neck normal visual inspection and trachea midline Respiratory normal respiratory effort, lungs clear to auscultation Cardiovascular Rate/Rhythm: regular rate and regular rhythm Gastrointestinal (Abdomen) Inspection/Auscultation: abdomen not distended Percussion/Palpation: abdomen soft; abdomen nontender Musculoskeletal Head/Neck/Chest: normocephalic and head atraumatic Skin no rashes, warm and dry Neurologic awake; + CN's not intact (L sided facial droop) and not confused Speech / Cognition: normal speech Psychiatric A+Ox3, euthymic affect Speech: normal rate/rhythm/volume of speech Affect: + flat affect Discharge Data Allergies Allergy/AdvReac Type Severity Reaction Status Date / Time KVNG Inhibitors AdvReac Mild Cough Verified 10/23/20 17:00 codeine AdvReac Mild Nausea Verified 10/23/20 17:00 Consultations 10/23/20 19:20 ED Decision to Admit Stat 10/23/20 20:59 Consult Case Management - Discharge Planning Routine Consult Case Management - Discharge Planning Routine Consult Neurology Routine Ordered Studies 10/23/20 15:36 CT angio head w con Stat CT angio neck with con Stat CT head/brain wo con Stat 10/23/20 20:59 MR brain wo con Routine Hospital Course (1) CVA (cerebral vascular accident): Primary presenting symptoms of dysarthria, difficulty swallowing and change in quality of speech are improving but still present in the ED CT head neg for acute CTA head neck showed no acute findings, but did show a stable 1.8 cm diameter left carotid bulb dilation MRI of brain without contrast showed a small acute to subacute lacunar infarct centered in the right rain radiata. Neuro recs for replacing aspirin with plavix Neuro also recs that if there was a repeat event in the future, plavix should be replaced with lovenox given pt's cancer hx A1c 5.4 TG 151, LDL 45, HDL 42 UA and CXR neg for infection PT/OT recs for home PT/OT, will have CM assist in setting up ST cleared for no restrictions in diet ECHO results pending on evening of day of d/c and pt felt he was at his baseline. Requesting d/c prior to results ECHO resulted day after d/c noted for EF 40-45% and several areas of hypokinesis. Also noted for heavy calcification and possible mobile plaque in abdominal aorta This was not reviewed with pt but could be the possible cause of his CVA Plavix would still be the tx of choice, but should be d/w pt on f/u (2) CLL (chronic lymphocytic leukemia): WBC has gradually increased over time, with increase to 115.95 upon admission. On admission this was discussed with heme-onc value of leukopheresis or any other type of intervention, and they report that typically this is not usually done until the counts are around 200 (3) Hypertension: BP elevated in the 180s-190s Resume home meds (4) Hyperlipidemia: Increase atorvastatin from 40 to 80 mg daily (5) BPH (benign prostatic hyperplasia): Continue tamsulosin 0.4 mg p.o. daily Total Time Total Time Spent Total Time Spent (In Minutes): >30 Total Time Includes: Examination of the Patient, Discharge Planning, Medication Reconciliation, Communication With Other Providers and Other Discharge Plan Discharge Items Patient Disposition: Home - Home Health Services Reason For Visit: DYSARTHRIA Discharge Diagnosis: Stroke Activity: Resume your previous activity Non-emergency contact: Primary Care Provider and Neurologist Call non-emergency contact if: you have any medication questions and your symptoms worsen Follow-up/Referrals: Christopher Kearns MD [Primary Care Provider] - Diet: Heart Healthy Addtl Attending Provider Instructions: You should have home PT and OT services set up for you. Our patient case coordinator can help you with this and will follow up with you about this tomorrow. You should see your PCP or someone at that office by the end of the week You will need to follow up with neurology in 6-8 weeks Pending Studies at Discharge: Yes Studies:: Formal ECHO read Stand-Alone Forms: My [facility], Smoking Cessation Medications and DC Order Prescriptions: New clopidogrel [Plavix] 75 mg tablet 75 mg PO DAILY Qty: 30 RF: 0 Continued tamsulosin 0.4 mg capsule 0.4 mg PO QAM Qty: 90 RF: 3 valsartan [Diovan] 160 mg tablet 160 mg PO QAM Qty: 90 RF: 3 acetaminophen 500 mg capsule 500 mg PO Q6H PRN (Reason: Pain) RF: 0 ibuprofen 200 mg Tablet 200 - 400 mg PO Q6H PRN (Reason: Pain) RF: 0 calcium carbonate-vitamin D3 [Calcium 600 + D(3)] 600 mg(1,500mg) -400 unit Tablet 1 tab PO BID RF: 0 cholecalciferol (vitamin D3) [Vitamin D3] 2,000 unit Tablet 2,000 unit PO QAM RF: 0 atorvastatin 40 mg tablet 40 mg PO HS RF: 0 fluticasone propionate 50 mcg/actuation [place],Suspension 2 spray INTRANASAL DAILY PRN (Reason: Allergic Symptoms) RF: 0 Discontinued aspirin 325 mg Tablet 325 mg PO QAM RF: 0 Discharge Orders: Discharge Order (Routine); Ordered 10/24/20 Ordered By: Angela Franks Admission Data Admit Date/Time: 10/23/20 20:01 Attending Provider: Angela Franks Admit Provider: Edis Orr Primary Care Provider: Christopher Kearns Other Providers: Edis Orr ; [place] ; [facility] Other Interventions: Discharge Summary Assessment (RN) Last Done: 10/24/20 17:11 Coding Level of Care Code D/C Day Management >30 mins Diagnoses CVA (cerebral vascular accident) I63.9 CVA mechanism: unspecified CLL (chronic lymphocytic leukemia) C91.90 Hypertension I10 Hypertension type: essential hypertension Hyperlipidemia E78.5 Hyperlipidemia type: unspecified BPH (benign prostatic hyperplasia) N40.0 Lower urinary tract symptom presence: unspecified whether lower urinary tract symptoms present
--- NOTE | 2020-10-24 18:12 | Pharmacy Report ---
Pharmacist Stroke Counseling - Date of Service October 24, 2020 - Scope: Pharmacy has been consulted to provide medication discharge counseling for this patient admitted with [ischemic stroke] [hemorrhagic stroke] [transient ischemic attack] as per the Pharmacist Discharge Counseling for Stroke Patients Prot ocol. - Medications on Discharge: Home Medications Medication Instructions Recorded Confirmed calcium carbonate-vitamin D3 1 tab PO BID 05/16/19 10/23/20 [Calcium 600 + D(3)] cholecalciferol (vitamin D3) 2,000 unit PO QAM 05/16/19 10/23/20 [Vitamin D3] ibuprofen 200 - 400 mg PO Q6H PRN 05/16/19 10/23/20 acetaminophen 500 mg capsule 500 mg PO Q6H PRN 07/23/19 10/23/20 atorvastatin 40 mg PO HS 06/07/20 10/23/20 fluticasone propionate 2 spray INTRANASAL DAILY PRN 07/21/20 10/23/20 Medication Instructions Recorded tamsulosin 0.4 mg capsule 0.4 mg PO QAM #90 cap 02/03/20 valsartan 160 mg tablet 160 mg PO QAM #90 tab 10/14/20 clopidogrel [Plavix] 75 mg PO DAILY #30 tab 10/24/20 - Action: The above medications, specifically ones for stroke treatment/prophylaxis, have been reviewed in detail with the patient and/or patient account representative(s) prior to discharge. This includes indication, common adverse reactions, drug interactions, and medication administration. Medication counseling has been employed using the teach-back method to ensure understanding. - Outcome: The patient and/or patient account representative(s) have demonstrated understanding of the medications. Spoke with patient over telephone regarding home medications. Talked about new medication, plavix, and importance of not missing doses, monitoring for increase in bruising/bleeding. Talked about how this medication replaced his home aspirin. All other medications were ones previously on. Talked briefly about tylenol vs ibuprofen and interaction with antiplatelets. Recommended limiting NSAID use if able and using tylenol over ibuprofen if needed for pain. No other changes. No other pertinent positives on interview Thank you for allowing pharmacy to be involved in the care of this patient. Please call [phone] with any additional questions
== END 2020-10-24 17:48 | disposition home health service (06) ==
LOC: ED 15:15 → 2S 15:15 → SUATTDRO 20:01 → 2S 20:50
DX: Z20.822 Contact with and (suspected) exposure to COVID-19; Z86.73 Personal history of transient ischemic attack (TIA), and cerebral infarction without residual deficits; K40.90 Unilateral inguinal hernia, without obstruction or gangrene, not specified as recurrent; I65.29 Occlusion and stenosis of unspecified carotid artery; E78.5 Hyperlipidemia, unspecified; C91.10 Chronic lymphocytic leukemia of B-cell type not having achieved remission; M81.0 Age-related osteoporosis without current pathological fracture; Z82.3 Family history of stroke; Z87.891 Personal history of nicotine dependence; N40.0 Benign prostatic hyperplasia without lower urinary tract symptoms; Z79.899 Other long term (current) drug therapy; N28.9 Disorder of kidney and ureter, unspecified; I45.10 Unspecified right bundle-branch block; I63.81 Other cerebral infarction due to occlusion or stenosis of small artery; Z88.5 Allergy status to narcotic agent; I10 Essential (primary) hypertension; K21.9 Gastro-esophageal reflux disease without esophagitis; H90.A31 Mixed conductive and sensorineural hearing loss, unilateral, right ear with restricted hearing on the contralateral side

== ENCOUNTER 2022-03-21 05:25 | Observation (INO) ==
--- NOTE | 2022-01-26 15:52 | Anesthesiology Consultation ---
Date of Service January 26, 2022 Assessment & Plan (1) Encounter for pre-operative examination: Chart Review Chart Review: Acceptable Risk for Surgery (pending anesthesia evaluation DOS and preop Covid testing results ) and Patient NOT seen in Pre Admission Testing -Discussed thrombocytopenia with Dr. Haines- chronic issue but platelet counts in 60s since Nov 2021- did inform both surgeon's offices and will leave to their discretion on how to proceed. Preop labs ordered by heme (so heme will be aware). Will leave to anesthesiologist discretion if repeat CBC with diff needed DOS Per nursing assessment 01/26/2022, patient denies any recent travel. No known COVID infection in the past 90 days. Patient is fully vaccinated for COVID. No known Covid positive exposures or Covid related symptoms. Preop Covid testing scheduled 01/27/22= will await results Pt seen by cardio 01/19/22= Patient seen for preop examination. "He is currently stable and asymptomatic from a cardiovascular standpoint with no anginal symptoms occurring at >4 METS of activity. He has no evidence of CHF. Pharmacologic nuclear stress test in November 2020 was negative for ischemia. Most recent echocardiogram in June 2021 showed normal LV systolic function and wall motion with no significant valvular abnormalities. ECG today shows normal sinus rhythm. Given this information, patient is at an acceptable risk to proceed with upcoming surgery without any additional cardiovascular testing or intervention." Right open inguinal hernia repair 08/03/20= Done under [facility] with LMA #4 iGel. History Surgery Operation Date: 01/31/22 07:00 Proposed Procedures p Dorsal Slit - Marques Pool, DO s Open Left Inguinal Hernia Repair - Haseeb Wright MD, FACS Height/Weight Height: 5 ft 7 in Weight: 58.967 kg Allergies Allergy/AdvReac Type Severity Reaction Status Date / Time KVNG Inhibitors AdvReac Mild Cough Verified 01/26/22 14:09 codeine AdvReac Mild Nausea Verified 01/26/22 14:09 Medications Home Medications Medication Instructions Recorded Confirmed Last Taken calcium carbonate 600 mg-vitamin 1 tab PO BID 05/16/19 01/26/22 08/02/20 08:30 D3 10 mcg (400 unit) tablet (Calcium 600 + D(3)) cholecalciferol (vitamin D3) 50 2,000 unit PO QAM 05/16/19 01/26/22 08/02/20 23:30 mcg (2,000 unit) tablet (Vitamin D3) acetaminophen 500 mg capsule 500 mg PO Q6H PRN 07/23/19 01/26/22 08/01/20 fluticasone propionate 50 2 spray INTRANASAL DAILY PRN 07/21/20 01/26/22 08/02/20 08:30 mcg/actuation nasal spray,suspension tamsulosin 0.4 mg capsule 0.4 mg PO QAM #90 cap 02/02/21 01/26/22 Unknown clopidogrel 75 mg tablet (Plavix) 75 mg PO DAILY #90 tab 03/30/21 01/26/22 Unknown valsartan 160 mg tablet (Diovan) 160 mg PO QAM #90 tab 07/29/21 01/26/22 Unknown atorvastatin 40 mg tablet 40 mg PO HS #90 tab 10/11/21 01/26/22 Unknown ondansetron HCl 8 mg tablet 8 mg PO DAILY 5 Days #5 tab 11/30/21 01/26/22 Unknown chlorambucil 2 mg tablet (Leukeran) 6 mg PO QAM tab 01/19/22 01/26/22 Unknown Penicillin 1 tab PO QID 01/26/22 01/26/22 Unknown finasteride 5 mg tablet 5 mg PO QAM 01/26/22 01/26/22 Unknown Past Medical History Medical History Aortic aneurysm - S/p TEVAR (2016) - Aortic stent graft seen per 11/15/[address] scan - Per Chest CT 01/14/21= 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 Evidence for stent repair of the descending thoracic aorta. 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 Bifascicular block Chronic, dating back to at least 08/2018 per chart review Bilateral inguinal hernia BPH (benign prostatic hyperplasia) WITH URINARY LEAKAGE CAD (coronary artery disease) Nonobstructive per cardio records (pt denies cardiac cath per 01/18/22 cardio note_ Cardiomyopathy EF 60-65% per 06/2021 ECHO Carotid artery disease S/p left carotid endarterectomy (2013) Per neck CTA 10/23/20= No significant carotid artery disease CKD (chronic kidney disease) CLL (chronic lymphocytic leukemia) Hearing deficit History of seizure [place] r/t hypoglycemic episodes (last ) History of stroke Initial stroke 2007- felt secondary to carotid disease (s/p left CEA) Possible second CVA shortly after first CVA Per records- CVA 10/23/20 On Plavix No residual effects Hyperlipidemia Hypertension Osteoporosis Past Family History Family History Brother Colorectal cancer Stroke Family history of diabetes mellitus Father Heart disease Hypertension Stroke Other No family history of adverse response to anesthesia Denies family history of Ovarian cancer Prostate cancer Myocardial infarction Breast cancer Past Surgical History Surgical History H/O right inguinal hernia repair (08/03/20) Open right inguinal hernia repair. Dr. Wright 08/03/2020 H/O thoracic aortic aneurysm repair Hip fracture requiring operative repair LEFT HIP History of carotid endarterectomy LEFT History of cataract surgery RT/LEFT History of hernia surgery LEFT INGUINAL 1980 History of left hip replacement History of right hip replacement History of tonsillectomy 1944 Hx of nasal polypectomy Nausea and vomiting after administration of anesthetic agent Status post incision and drainage (06/26/20) incision and drainage in the office of the left posterior thigh abscess 06/26/20 Dr. Wright in office Social History Smoking Status: Former smoker tobacco type: cigarettes and pipe Smoking cigarettes per day: 12 YEARS AGO Hx Alcohol Use: Yes Alcohol type: beer and wine alcohol intake frequency: 0-2 drinks per day Hx Substance Use: No substance use type: does not use Lab Results Anesthesia Preop Results Results Anesthesia Widget: WBC 21.36 K/uL (4.8-10.8) H 01/25/22 Hgb 12.5 g/dL (14.0-18.0) L 01/25/22 Hct 38.4 % (42-52) L 01/25/22 Plt 58 K/uL (130-400) L 01/25/22 Na 143 mmol/L (136-145) 01/25/22 K 3.5 mmol/L (3.5-5.1) 01/25/22 Cl 108 mmol/L (98-107) H 01/25/22 CO2 29 mmol/L (21-32) 01/25/22 BUN 37 mg/dl (6-23) H 01/25/22 Creat 1.53 mg/dl (0.6-1.4) H 01/25/22 Glucose Level 146 mg/dl (70-99(Fasting)) H 01/25/22 Testing Laboratory Results Leukocytosis- chronic and stable (improved from previous- hx of CLL) - surgeon's offices informed Thrombocytopenia- chronic- mildly decreased from previous- will inform surgeon's offices Elevated creatinine- chronic and stable Electrocardiogram Date: 01/19/22 Sinus rhythm with premature atrial complexes at 67 bpm Right bundle branch block. Left anterior fascicular block. Bifascicular block Echocardiogram Date: 06/09/21 EF: 60-65% LV Function: normal RWMA: + none Other Findings: + LVH (Mild/concentric) and + diastolic dysfunction (Grade 1) Valvular Disease: + no significant valvular disease Borderline dilated aortic root for age-adjusted PSA. Normal estimated RVSP; RVSP 29 mmHg. Compared to prior study on 12/19/2020, LV systolic function has improved. Stress Test Date: 12/18/20 Type: nuclear Negative myocardial perfusion study for significant ischemia. Fixed inferior defect may be due to attenuation artifact given normal wall motion. Normal LV systolic function. EF 65%. Lexiscan induced chest tightness. Nondiagnostic Lexiscan EKG. Other Testing Chest CT 11/15/2021 = enlarged lymph nodes are seen in the mediastinum, lower back and axilla which are overall stable to minimally increased from prior exam. Diffuse centrilobular emphysema seen most prominent in the upper lobes. Dependent atelectasis is seen. Moderate atherosclerotic changes in the aorta and coronary arteries. Aortic stent graft is seen. Abdomen/pelvis CT scan 11/15/2021 = compared to previous examination, there has been significant interval worsening of periaortic, retroperitoneal and pelvic adenopathy. No other evidence for acute intra-abdominal or pelvic abnormality. Mild hepatomegaly. Brain MRI 10/23/2020 = Findings are consistent with a small acute to subacute lacunar infarct centered in the right rain radiata. No additional foci of acute ischemia are identified. There is no hemorrhage or mass effect. Cervical lymphadenopathy is noted. Neck/head CTA and CT of the brain 10/23/2020 = There is no hemorrhage, mass effect, or evidence of acute territorial ischemia by CT criteria. Unremarkable CT angiogram of the brain. 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 This is similar to prior studies. Otherwise unremarkable CT angiogram of the neck noting advanced atherosclerotic change. There is no significant carotid artery stenosis. Advanced emphysema. There is bilateral cervical chain and supraclavicular lymphadenopathy. This suggests a lymphoproliferative disorder. Correlation with the patient's medical/oncological history will be required.
[~2022-03-21 05:25] MED LIST changes: -CEFAZOLIN 1000MG 1,000 MG/7.5 ML SYR IV SCH; +LACTATED RINGER'S 1,000 ML IV SCH; -LR 15ML/HR IV SCH; +ceFAZolin 2000MG 2,000 MG/15 ML SYR IV SCH
[2022-03-21] MEDS ORDERED: LACTATED RINGER'S 1,000 ML IV SCH (06:00)
[2022-03-21] MEDS ORDERED: ceFAZolin 2000MG 2,000 MG/15 ML SYR IV SCH (06:00)
[2022-03-21] MEDS ORDERED: fentaNYL citrate 100 MCG/2 ML VIAL ONE (06:23)
[2022-03-21] MEDS ORDERED: LIDOCAINE 2% 2 ML VIAL/AMP(20MG/ML) INFIL ONE (06:25)
[2022-03-21] MEDS ORDERED: PROPOFOL IV EMULSION 10 MG/ML 20 ML VIAL IV ONE (06:25)
[2022-03-21] MEDS ORDERED: ROCURONIUM BROMIDE 10 MG/ML 5 ML VIAL IV ONE (06:27)
[2022-03-21] MEDS ORDERED: ONDANSETRON INJ 2 MG/ML 2 ML VIAL ONE (06:32)
[2022-03-21] MEDS ORDERED: fentaNYL citrate 100 MCG/2 ML VIAL IV PRN (06:39)
[2022-03-21] MEDS ORDERED: LABETALOL HCL IV 5 MG/ML 20ML IV PRN (06:39)
[2022-03-21] MEDS ORDERED: ePHEDrine sulfate 50 MG/ML AMP IV PRN (06:39)
[2022-03-21] MEDS ORDERED: ONDANSETRON INJ 2 MG/ML 2 ML VIAL IV PRN ×2 (06:39→10:24)
[2022-03-21] MEDS ORDERED: ATROPINE SULFATE 0.1 MG/ML 10ML SYR IV PRN (06:39)
[2022-03-21] MEDS ORDERED: NALOXONE HCL 0.4 MG/1 ML VIAL/CARP IV PRN (06:39)
[2022-03-21] MEDS ORDERED: FLUMAZENIL 0.1 MG/1 ML 10 ML VIAL IV PRN (06:39)
[2022-03-21] MEDS ORDERED: PROMETHAZINE HCL 12.5 MG in SODIUM CHLORIDE 0.9% 50 ML IV PRN (06:39)
--- NOTE | 2022-03-21 06:39 | Anesthesiology Consultation ---
Date of Service March 21, 2022 Assessment & Plan Chart Review Chart Review: Acceptable Risk for Surgery and Patient NOT seen in Pre Admission Testing Consults Requested none ASA ASA4 Proposed Anesthesia Anesthesia Type: General Risk / Benefits Reviewed With: PT / POA / Parent / Guardian, Accepts Plan and Informed Consent Obtained Additional Comments: covid test negative History Surgery Operation Date: 03/21/22 07:00 Proposed Procedures p Dorsal Slit - Marques Pool, DO s Open Left Inguinal Hernia Repair - Haseeb Wright MD, FACS Height/Weight Height: 5 ft 7 in Weight: 58.967 kg Allergies Allergy/AdvReac Type Severity Reaction Status Date / Time KVNG Inhibitors AdvReac Mild Cough Verified 03/21/22 06:03 codeine AdvReac Mild Nausea Verified 03/21/22 06:03 Medications Home Medications Medication Instructions Recorded Confirmed Last Taken calcium carbonate 600 mg-vitamin 1 tab PO BID 05/16/19 03/21/22 03/20/22 23:30 D3 10 mcg (400 unit) tablet (Calcium 600 + D(3)) cholecalciferol (vitamin D3) 50 2,000 unit PO QAM 05/16/19 03/21/22 03/20/22 10:00 mcg (2,000 unit) tablet (Vitamin D3) acetaminophen 500 mg capsule 500 mg PO Q6H PRN 07/23/19 03/21/22 03/20/22 23:55 fluticasone propionate 50 2 spray INTRANASAL DAILY PRN 07/21/20 03/21/22 08/02/20 08:30 mcg/actuation nasal spray,suspension clopidogrel 75 mg tablet (Plavix) 75 mg PO DAILY #90 tab 03/30/21 03/21/22 03/14/22 atorvastatin 40 mg tablet 40 mg PO HS #90 tab 10/11/21 03/21/22 03/20/22 23:30 finasteride 5 mg tablet 5 mg PO QAM 01/26/22 03/21/22 03/20/22 10:00 tamsulosin 0.4 mg capsule 0.4 mg PO QAM #90 cap 02/07/22 03/21/22 03/21/22 05:00 valsartan 80 mg tablet 80 mg PO QAM #30 tab 03/08/22 03/21/22 03/21/22 05:00 Active Medications Generic Name Dose Route Start Last Admin Trade Name Freq PRN Reason Stop Dose Admin Lactated Ringer's 1,000 mls @ 15 mls/hr 03/21/22 06:00 03/21/22 06:19 Lr IV 03/22/22 05:59 15 mls/hr .Q24H JORGE Administration NPO Date Last Intake of Fluids: 03/20/22 Time Last Intake of Fluids: 23:30 Date Last Intake of Solids: 03/20/22 Time Last Intake of Solids: 21:00 Past Medical History Medical History Abscess Aortic aneurysm - S/p TEVAR (2016) - Aortic stent graft seen per 11/15/[address] scan - Per Chest CT 01/14/21= 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 Evidence for stent repair of the descending thoracic aorta. 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 Bifascicular block Chronic, dating back to at least 08/2018 per chart review Bilateral inguinal hernia BPH (benign prostatic hyperplasia) WITH URINARY LEAKAGE CAD (coronary artery disease) Nonobstructive per cardio records (pt denies cardiac cath per 01/18/22 cardio note_ Cardiomyopathy EF 60-65% per 06/2021 ECHO Carotid artery disease S/p left carotid endarterectomy (2013) Per neck CTA 10/23/20= No significant carotid artery disease CKD (chronic kidney disease) CLL (chronic lymphocytic leukemia) Hearing deficit History of seizure [place] r/t hypoglycemic episodes (last ) History of stroke Initial stroke 2007- felt secondary to carotid disease (s/p left CEA) Possible second CVA shortly after first CVA Per records- CVA 10/23/20 On Plavix No residual effects Hyperlipidemia Hypertension Hypertension Left thigh pain Osteoporosis Right inguinal hernia Right inguinal hernia Exercise / Class Metabolic Activity III < 4 Walking/Shop/Light housework Past Family History Family History Brother Colorectal cancer Stroke Family history of diabetes mellitus Father Heart disease Hypertension Stroke Other No family history of adverse response to anesthesia Denies family history of Ovarian cancer Prostate cancer Myocardial infarction Breast cancer Past Surgical History Surgical History H/O right inguinal hernia repair (08/03/20) Open right inguinal hernia repair. Dr. Wright 08/03/2020 H/O thoracic aortic aneurysm repair Hip fracture requiring operative repair LEFT HIP History of carotid endarterectomy LEFT History of cataract surgery RT/LEFT History of hernia surgery LEFT INGUINAL 1980 History of left hip replacement History of right hip replacement History of tonsillectomy 194 Hx of nasal polypectomy Nausea and vomiting after administration of anesthetic agent Status post incision and drainage (06/26/20) incision and drainage in the office of the left posterior thigh abscess Dr. Wright in office Past Anesthesia History No Hx of Anesthesia Complications and No Family Hx of Anesthesia Complications History of PONV No Hx of PONV and No Hx of Motion Sickness Social History Smoking Status: Former smoker tobacco type: cigarettes and pipe Smoking cigarettes per day: 12 YEARS AGO Hx Alcohol Use: Yes Alcohol type: beer and wine alcohol intake frequency: 0-2 drinks per day Hx Substance Use: No substance use type: does not use Physical Exam Constitutional + cachectic ENMT Mouth: + dentition abnormality and + poor dentition Thyromental Distance: > or= 3.5 Finger Breadths Mallampati Class: II Neck normal visual inspection and trachea midline; neck extension not limited Respiratory normal respiratory effort Auscultation: + diminished lung sounds Cardiovascular Rate/Rhythm: regular rate and regular rhythm Heart Sounds: no murmur Vessels: no carotid bruit Musculoskeletal Spine: normal cervical ROM Extremities: extremities normal to inspection Neurologic moves all extremities Motor/Sensory: no sensory deficit Psychiatric Orientation: alert and oriented x 3
--- NOTE | 2022-03-21 06:46 | History & Physical Bridge Note ---
Date of Service March 21, 2022 History & Physical Bridge Note I have examined the patient, reviewed the History & Physical and in the interval since the performance of the History & Physical I have noted the following changes of clinical significance: no changes noted
[2022-03-21 06:50] LABS: Appearance Urine Clear (Clear); Bacteria Urine Automated Negative (Negative); Bilirubin Urine Negative (Negative); Blood Urine Trace (Negative); Color Urine Yellow; Glucose Urine UA Negative (Negative); Ketones Urine Negative (Negative); Leukocyte Esterase Urine Negative (Negative); Nitrite Urine Negative (Negative); Protein Urine Trace (Negative); RBC Urine Automated 0-4 /hpf (0-4); Specific Gravity Urine 1.011 (1.000-1.030); Urobilinogen Urine Negative (Negative); WBC Urine Automated 0 /hpf (0-5)
[2022-03-21] MEDS ORDERED: BUPIVACAINE 0.5 % 5 MG/1 ML MPF 30ML VIAL ONE (06:53)
[2022-03-21] MEDS ORDERED: ceFAZolin 330 MG/ML 1 GM VIAL ONE (06:53)
[2022-03-21] MEDS ORDERED: LIDOCAINE 1% LOCAL 20 ML VIAL ONE ×2 (06:53→16:53)
[2022-03-21] MEDS ORDERED: GLYCOPYRROLATE 0.2 MG/ML VIAL ONE (07:11)
[2022-03-21] MEDS ORDERED: BACITRACIN OINT 15 GM TUBE ONE (07:38)
[2022-03-21] MEDS ORDERED: ePHEDrine sulfate 50 MG/ML SYR ONE (08:01)
--- NOTE | 2022-03-21 08:10 | Operative Report ---
PG Post Operative Report Pre & Post Diagnosis Operation Date: 03/21/22 07:00 Pre-Op Diagnosis: Phimosis Post-Op Diagnosis: I identified the patient and participated in the time-out.: Yes Procedure Operation Date: 03/21/22 07:00 Actual Procedures Circumcision with incision and repair of tethered frenulum - Marques Pool DO Surgeon Marques Pool, II, DO Tile And Marble Installer None Estimated Blood Loss 5 Findings Consistent with Post-Op Diagnosis Severe Phimosis. Unable to retract foreskin. Balanitis. Tethered frenulum with narrowing causing considerable distortion of glans. Specimens Foreskin Drains 16 Fr estes to be removed after hernia repair. Anesthesia Type General Complications none Indications Severe phimosis with bother and issues. Planned hernia repair on left, however severe phimosis would not allow retraction of foreskin. Risks and benefits discussed at length. Description of Procedure Patient was informed of all risks and benefits and all questions answered. He gave consent for the procedure. Was planning on undergoing left inguinal hernia repair but had considerable issues and concern for difficulty with catheter placement. The patient was brought back to the operating room. Patient was placed under anesthesia in the supine position. Patient was prepped and draped in the regular sterile fashion. A time out was completed. The correct patient and procedure were identified and confirmed. With the time out completed and the patient prepped, the foreskin was manipulated. The phimosis was severely narrowed and a hemostat dipped in betadine was used to spread the tissue and to crush the phimositic ring at the dorsal position. This was then incised for a small dorsal slit to allow retraction. The foreskin was retracted and then the glans reprepped with betadine. The distal incision was planned and the skin was marked. The base of the penis was assessed and a penile block was completed with local anesthetic injected into the subcutaneous tissues at the dorsal base of penis after aspirating without blood or issues. A severe tethering was noted from the frenulum of the foreskin to the glans. This pulled significantly on the glans. This was incised and the 6 o'clock position was reconstructed and repaired with a running 3-0 monocryl suture. A 15-blade scalpel was used to make the distal incision. Care was taken to monitor the important structures of the penis and meatus and glans. The Proximal incision was then marked to allow good approximation. The incision was made. The proximal and distal incisions were then connected and the foreskin was dissected away. Cautery was used for any bleeding. Care was taken to monitor the entire time. The wound bed was inspected. No bleeding or other issues. The skin edges were in good position and no significant redundant tissues. A 3-0 monocryl suture was then used at the 12 and 6 o'clock position to anchor the edges for closure. The same suture was used to close the skin circumferentially with running stitches. The area was cleaned. Adhesive glue was then placed. The patient was cleaned. Further local was injected at the base of penis circumferentially. Antibiotic ointment was placed on the meatus and glans. Surgical glue was placed on the incision and allowed to dry. The area was inspected and no issues or concerns. The patient was cleaned. Care was transferred to Dr. Wright and the general surgery team to complete the planned primary procedure. At transfer, the patient was in stable condition having tolerated my portion of the procedure well with no complications. I was present and participated in all aspects of my portion of the procedure until transfer of care to Dr. Wright. All counts were correct x 2 for the circumcion. At the end of the procedure, a bandage will be wrapped around the entire area with a Coban dressing wrapped around as the last layer. Plan to followup in approx 2-3 weeks to reassess. I attest to the content of the Intraoperative Record and any orders documented therein. Any exceptions are noted below.
[2022-03-21] MEDS ORDERED: ACETAMINOPHEN 1,000 MG/100 ML VIAL IV ONE (08:52)
--- NOTE | 2022-03-21 08:52 | Post Operative Brief Note ---
PG Immediate Post Op with CF Date of Surgery March 21, 2022 Pre & Post Diagnosis Operation Date: 03/21/22 07:00 Pre-Op Diagnosis: Urinary Leakage Left Inguinal Hernia Post-Op Diagnosis: Urinary Leakage Left Inguinal Hernia Large direct and indirect hernias which were recurrence I identified the patient and participated in the time-out.: Yes Procedure Operation Date: 03/21/22 07:00 Actual Procedures p Circumcision(Not Applicable) - Marques Pool, s Open Left Inguinal Hernia Repair with Mesh(Left) - Haseeb Wright MD, FACS Surgeon Haseeb Wright MD, FACS Tutoring Clinician Julienne Jaquez Estimated Blood Loss 20 Findings Consistent with Post-Op Diagnosis Recurrent left inguinal hernia with large direct and indirect defects Specimens Specimen Description: A. Foreskin B. Hernia Sac Drains Bob Catheter and Jame-Mora Drain Anesthesia Type General
--- NOTE | 2022-03-21 09:33 | Operative Report (OR) ---
DATE OF OPERATION: 03/21/2022. NAME OF OPERATION: Recurrent left inguinal hernia repair. PREOPERATIVE DIAGNOSIS: Left inguinal hernia. POSTOPERATIVE DIAGNOSIS: Left inguinal hernia with large direct and indirect defects. STAFF SURGEON: Haseeb Wright MD. DIRECTOR OF ENTERPRISE STRATEGY: Salas Jaquez PA-C. ANESTHESIA: General. DESCRIPTION OF PROCEDURE: The patient was in the operating room in the supine position. He had unde rgone a circumcision by Dr. Pool. His lower abdomen was prepped and draped in the usual fashion. The left side was approached. The skin and subcutaneous tissue were anesthetized using 0.5% plain Marcaine. The patient had a recurrent hernia. My office support assistant did help with prepping, draping, repair of the hernia and closure of the wound. Incision was made parallel to the inguinal ligament, carrying dissection down, identifying the commercial construction project manager al oblique fibers through significant scar tissue. With some difficulty, these were mobilized and the n we were able to identify a broad-based large direct hernia and an indirect hernia sac. The indirec t hernia sac was dissected away from the cord structures, partially excised and ligated using 2-0 Eth ibond suture. It was then reduced and a mesh plug placed, secured to surrounding tissue using 2-0 Et hibond suture. The direct hernia was mobilized and the area of the neck where the sac came through t he abdominal wall was mobilized and opened and then the sac reduced with the contents. Then, a large mesh plug placed into the site, secured to surrounding tissue using 0 silk suture. At this point, we placed a piece of large mesh into the floor of the canal around the cord structures over the prior plugs, secured using 2-0 Ethibond suture. The site was irrigated with antibiotic killian ution, external oblique fibers closed over the mesh around the cord structures using 2-0 Ethibond sut ure. A 15 round Jame-Mora drain placed into the wound through a separate stab incision and secur ed using 3-0 nylon suture. Subcutaneous tissue reapproximated using 2-0 plain suture and the skin re approximated using 4-0 nylon suture. Deep tissue was also anesthetized using 0.5% plain Marcaine. Job ID: [id number]
--- NOTE | 2022-03-21 10:21 | Anesthesiology Progress Note ---
Date of Service March 21, 2022 Anesthesia Post Procedure Vital Signs Vital Signs: Temp Pulse Pulse Resp BP Pulse Ox 03/21/22 10:10 65 16 133/65 94 03/21/22 10:00 65 16 134/73 94 03/21/22 09:50 36.4 C L 67 16 133/73 93 03/21/22 09:40 67 14 136/68 94 03/21/22 09:30 69 14 141/67 H 95 03/21/22 09:20 71 14 150/76 H 99 03/21/22 09:10 69 14 154/94 H 99 03/21/22 09:03 36.5 C 75 20 161/86 H 99 03/21/22 06:20 37 C 58 L 18 173/80 H 98 Transfer of Care Handoff Completed per policy Notes Mental Status: alert / awake / arousable Patient Amnestic to Procedure: Yes Nausea / Vomiting: adequately controlled Pain: adequately controlled Airway Patency, RR, SpO2: stable & adequate BP & HR: stable & adequate Hydration State: stable & adequate Anesthetic Complications: no major complications apparent
[2022-03-21] MEDS ORDERED: SODIUM CHLORIDE 0.9% 500 ML IV SCH (10:24)
[2022-03-21] MEDS ORDERED: MoRPHine SULFATE 2 MG/ML CARP IV PRN (10:24)
[2022-03-21] MEDS ORDERED: HYDROCODONE/ACETAMOPHEN 5/325MG TAB PO PRN (10:24)
[2022-03-21] MEDS: MAGNESIUM HYDROXIDE SUSP 30 ML UDC PO SCH ×2 (11:57→20:24)
[2022-03-21] MEDS: DOCUSATE SODIUM/SENNA 50/8.6MG TAB PO SCH ×2 (11:57→20:25)
--- NOTE | 2022-03-21 11:58 | Hospitalist Consultation ---
Date of Consultation March 21, 2022 Assessment & Plan (1) Left inguinal hernia: S/P repair with Dr. Wright, POD#0 - Pain control, antibiotics, bowel regimen, diet as per primary attending - Recommend utilizing I/S q1h wa for atelectasis/pna prevention - Bowel regimen - PT/OT eval when able to advance activity (2) Phimosis of penis: S/P circumcision - Bob management per primary service (3) Hypertension: - On Valsartan at home which can be continued - BP well controlled (4) BPH (benign prostatic hyperplasia): - Continue Tamsulosin and Finasteride (5) CKD (chronic kidney disease): - Baseline creat 1.6 (6) CLL (chronic lymphocytic leukemia): - Stable (7) CAD (coronary artery disease): CAD/Cardiomyopathy/HLD - On Plavix (currently on hold for surgery) would resume 48 post op if gen surgery agreeable - Continue Atorvastatin - Last echo 06/2021, EF 60-65% (prior to that was 40-45%), and WMA * Cardiology evaluated in 12/2021 and provided cardiac clearance Recommend obtaining labs tomorrow AM, ordered a CBC and BMP. No additional recommendations at this time. Thank you for allowing us to participate in the care of your patient, will follow along. Plan will be d/w Dr. Green. Supervising Physician Co-Signing Physician Notes During face to face encounter, physical exam was performed and history were obt ained. Discussed plan of care with CHUCK Gomez and patient All of patient's questions were answered. Reviewed above note and agree with it. Patient consulted for medical management. Resume home meds for hypertension History of Present Illness Reason for Consultation: medical management Requesting Physician: Dr. Wright Attending Physician: Haseeb Wright MD, FACS History of Present Illness Mr. Kline is a pleasant 86 yo WM with a rather extensive pmhx including recurrent CVAs, CLL, CKD, HTN, HLD, AAA s/p repair, reported h/o nonobstructive CAD, carotid artery stenosis s/p L CEA who was admitted under Dr. Wright's service for elective left inguinal hernia repair in addition to a circumcision due to phimosis which was performed by Dr. Pool. Patient did have cardiology clearance prior to scheduling procedure. He was seen today in PACU where he was resting comfortably and related no complaints of chest pain, dyspnea, n/v, or headache. He endorsed some discomfort at the incision site. Hospitalists have been consulted for post operative medical management. Allergies Allergy/AdvReac Type Severity Reaction Status Date / Time KVNG Inhibitors AdvReac Mild Cough Verified 03/21/22 06:03 codeine AdvReac Mild Nausea Verified 03/21/22 06:03 Home Medications Medication Instructions Recorded Confirmed Type calcium carbonate 600 mg-vitamin 1 tab PO BID 05/16/19 03/25/22 History D3 10 mcg (400 unit) tablet (Calcium 600 + D(3)) cholecalciferol (vitamin D3) 50 2,000 unit PO QAM 05/16/19 03/25/22 History mcg (2,000 unit) tablet (Vitamin D3) acetaminophen 500 mg capsule 500 mg PO Q6H PRN 07/23/19 03/25/22 History fluticasone propionate 50 2 spray INTRANASAL DAILY PRN 07/21/20 03/25/22 History mcg/actuation nasal spray,suspension clopidogrel 75 mg tablet (Plavix) 75 mg PO DAILY #90 tab 03/30/21 03/21/22 Rx atorvastatin 40 mg tablet 40 mg PO HS #90 tab 10/11/21 03/25/22 Rx finasteride 5 mg tablet 5 mg PO QAM 01/26/22 03/25/22 History tamsulosin 0.4 mg capsule 0.4 mg PO QAM #90 cap 02/07/22 03/25/22 Rx valsartan 80 mg tablet 80 mg PO QAM #30 tab 03/08/22 03/25/22 Rx clotrimazole-betamethasone 1 1 applic TOPICAL TID PRN #45 g 03/21/22 03/25/22 Rx %-0.05 % topical cream cephalexin 500 mg capsule 500 mg PO TID 5 Days #15 cap 03/24/22 03/25/22 Rx Patient History Medical History (Updated 03/22/22 @ 14:47 by Anne Gomez PA-C) Abscess Aortic aneurysm - S/p TEVAR (2017) - Aortic stent graft seen per 11/15/[address] scan - Per Chest CT 01/14/21= 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 Evidence for stent repair of the descending thoracic aorta. 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 Bifascicular block Chronic, dating back to at least 08/2018 per chart review Bilateral inguinal hernia BPH (benign prostatic hyperplasia) WITH URINARY LEAKAGE CAD (coronary artery disease) Nonobstructive per cardio records (pt denies cardiac cath per 01/18/22 cardio note_ Cardiomyopathy EF 60-65% per 06/2021 ECHO Carotid artery disease S/p left carotid endarterectomy (2013) Per neck CTA 10/23/20= No significant carotid artery disease CKD (chronic kidney disease) CLL (chronic lymphocytic leukemia) Hearing deficit History of seizure [place] r/t hypoglycemic episodes (last ) History of stroke Initial stroke 2007- felt secondary to carotid disease (s/p left CEA) Possible second CVA shortly after first CVA Per records- CVA 10/23/20 On Plavix No residual effects Hyperlipidemia Hypertension Hypertension Left thigh pain Osteoporosis Right inguinal hernia Right inguinal hernia Surgical History (Updated 03/21/22 @ 17:22 by Haseeb Wright MD, FACS) H/O right inguinal hernia repair (08/03/20) Open right inguinal hernia repair. Dr. Wright 08/03/2020 H/O thoracic aortic aneurysm repair Hip fracture requiring operative repair LEFT HIP History of carotid endarterectomy LEFT History of cataract surgery RT/LEFT History of hernia surgery LEFT INGUINAL 1980 History of left hip replacement History of right hip replacement History of tonsillectomy 1944 Hx of nasal polypectomy Nausea and vomiting after administration of anesthetic agent S/P left inguinal hernia repair (03/21/22) Recurrent left inguinal hernia repair. Dr. Wright Status post incision and drainage (06/26/20) incision and drainage in the office of the left posterior thigh abscess 06/26/20 Dr. Wright in office Family History Brother Colorectal cancer Stroke Family history of diabetes mellitus Father Heart disease Hypertension Stroke Other No family history of adverse response to anesthesia Denies family history of Ovarian cancer Prostate cancer Myocardial infarction Breast cancer Social History (Updated 01/06/22 @ 08:46 by Milagro Manriquez RN) Smoking Status: Former smoker Tobacco Type: Cigarettes packs per day: 0.75; Years Smoked: 50; Cigarettes Per Day: 12 YEARS AGO; Second Hand Exposure: No; Hx Alcohol Use: Yes Alcohol type: beer and wine Alcohol Intake Frequency: 4 or More x per/Week Alcohol Intake Frequency Comment: 14 Hx Substance Use: No Preferred Language: Italian Communication Ability: Effective Visual Impairment: No Limitations Hearing Ability: Use of Hearing Aid Epic Prelude Analyst Required: No Beliefs That Will Affect Care: None marital status: / Current Living Situation: Alone current occupational status: retired How many Children do You have: 0 Feels Safe at Home: Yes Childhood Exposure to Second-Hand Smoke: Yes Dental Care, Regularly: Yes Physical Activity Frequency: 1-2 Times per Week Seatbelt Use: always Sunscreen Use: No Assistive Devices: None Review of Systems Review of Systems: All systems reviewed and are unremarkable except as noted in HPI and below. Denies fever, chills, fatigue, headache, nasal congestion, sore throat, cough, chest pain, shortness of breath, palpitations, orthopnea, PND, abdominal pain, n/v/d, constipation, dysuria, hematuria, frequency, back pain, joint pain or swelling, easy bruising or bleeding, skin lesions or rashes. Physical Exam Physical Exam: GEN: 86 yo WD/WN elderly WM. Pleasant, cooperative. NAD EYES: PERRLA LUNGS: Clear to auscultation bilaterally. No accessory muscle use. No W/R/R. CARDIOVASCULAR: Regular rate and rhythm. No M/G/R. No JVD. ABDOMEN: Soft, NT/ND. No palpable masses. Bowel sounds normoactive x 4 quad. EXTREMITIES: No edema. Non-tender. Peripheral pulses +2/4. NEUROLOGIC: A&O x3. No focal neurological deficits. CN II-XII grossly intact. PSYCHIATRIC: Cooperative. Appropriate mood and affect. SKIN: Warm, dry, intact. No rashes or lesions. Incision site is dressed. Results & Data Results & Data ([facility]) Vital Signs (Past 12 Hours) Vital Signs Temp Pulse Pulse Resp BP Pulse Ox 03/21/22 11:26 36.4 C L 62 16 133/63 94 03/21/22 10:51 36.5 C 63 16 140/61 93 03/21/22 10:20 36.5 C 69 14 144/66 H 95 03/21/22 10:10 65 16 133/65 94 03/21/22 10:00 65 16 134/73 94 03/21/22 09:50 36.4 C L 67 16 133/73 93 03/21/22 09:40 67 14 136/68 94 03/21/22 09:30 69 14 141/67 H 95 03/21/22 09:20 71 14 150/76 H 99 03/21/22 09:10 69 14 154/94 H 99 03/21/22 09:03 36.5 C 75 20 161/86 H 99 03/21/22 06:20 37 C 58 L 18 173/80 H 98 PG Care Time/CCT Total # of Minutes Spent Total Time Spent with Patient: Total time spent is greater than 50% in coordination of care (as documented) at patient's floor/unit and/or counseling patient: Coding Level of Care Code 55626 Office/OBS Consult Lvl 4 Diagnoses Left inguinal hernia K40.90 Phimosis of penis N47.1 Hypertension I10 Hypertension type: essential hypertension BPH (benign prostatic hyperplasia) N40.0 Lower urinary tract symptom presence: unspecified whether lower urinary tract symptoms present CKD (chronic kidney disease) N18.9 CLL (chronic lymphocytic leukemia) C91.90 CAD (coronary artery disease) I25.10 (1) BPH (benign prostatic hyperplasia) Lower urinary tract symptom presence: unspecified whether lower urinary tract symptoms present Qualified Code(s): N40.0 - Benign prostatic hyperplasia without lower urinary tract symptoms (2) Hypertension Hypertension type: essential hypertension Qualified Code(s): I10 - Essential (primary) hypertension
[2022-03-21] MEDS: FINASTERIDE 5 MG TAB PO SCH (12:00)
[2022-03-21] MEDS: TAMSULOSIN HCL 0.4 MG CAP PO SCH (12:00)
[2022-03-21] MEDS: VALSARTAN 80 MG TAB PO SCH (12:01)
[2022-03-21 15:34] LABS: Hematocrit (blood only) 33.6 % (42-52); Mean Corpuscular Hemoglobin 33.2 pg (25-34); Mean Corpuscular Volume 101.5 fL (80-100); RDW Coefficient of Variation 14.9 % (11.5-14.5); RDW Standard Deviation 55.3 fL (36.4-46.3); Red Blood Count 3.31 M/uL (4.7-6.1); White Blood Count 8.38 K/uL (4.8-10.8)
[2022-03-21 15:48] LABS: Mean Corpuscular Hgb Conc 32.7 g/dL (32-36); Mean Platelet Volume 10.1 fL (7.4-10.4); Platelet Count 58 K/uL (130-400)
[2022-03-21 15:50] LABS: Basophils # (auto) 0.02 K/uL (0-0.2); Basophils % (auto) 0.2 %; Eosinophils # (auto) 0.16 K/uL (0-0.5); Eosinophils % (auto) 1.9 %; Immature Granulocytes # (auto) 0.02 K/uL (0.00-0.02); Immature Granulocytes % (auto) 0.2 %; Lymphocytes % (auto) 32.2 %; Monocytes # (auto) 0.55 K/uL (0.11-0.59); Monocytes % (auto) 6.6 %; Neutrophils # (auto) 4.93 K/uL (1.4-6.5); Neutrophils % (auto) 58.9 %
[2022-03-21 15:52] LABS: Albumin Globulin Ratio 1.5 (0.9-2); Albumin Level 3.7 gm/dl (3.4-5.0); BUN Creatinine Ratio 14.6 (10-20); Bilirubin,Total 0.6 mg/dl (0.2-1.0); Calcium 9.8 mg/dl (8.5-10.1); Creatinine Clr Calc Pharmacy 21.6 ml/min; Est GFR (African American) 32.2 ml/min; Est GFR (Non-African American) 27.7 ml/min; Globulin 2.4 gm/dl (2.5-4.0); Potassium 3.6 mmol/L (3.5-5.1); Total Protein 6.1 gm/dl (6.0-8.3)
[2022-03-21] MEDS: ceFAZolin 1000MG 1,000 MG/7.5 ML SYR IV SCH ×2 (16:00→23:24)
[2022-03-21] MEDS ORDERED: LIDOCAINE 1% LOCAL 20 ML VIAL INJ STA (16:43)
[2022-03-21] MEDS ORDERED: DESMOPRESSIN ACETATE 18 MCG in SODIUM CHLORIDE 0.9% 50 ML IV STA (17:07)
--- NOTE | 2022-03-21 17:24 | Surgery Progress Note ---
Date of Service March 21, 2022 Assessment & Plan (1) S/P left inguinal hernia repair: Plan: Patient with recurrent left inguinal hernia repair History of chemotherapy with history of thrombocytopenia Patient having oozing and bruising from his wound and into the drain No specific hematoma-suspect this is from his platelets His platelet count is 58,000 and I suspect they are somewhat dysfunctional I have sutured his incision using 1% plain lidocaine and 4-0 nylon We will give him some DDAVP Also transfuse a unit of platelets Monitor closely Admission and Anticipated Discharge Date Admission Date: March 21, 2022 Results & Data ([facility]) Vital Signs (Past 12 Hours) Vital Signs Temp Pulse Pulse Resp BP Pulse Ox 03/21/22 15:40 36.7 C 83 16 154/75 H 96 03/21/22 12:30 65 16 153/68 H 95 03/21/22 11:26 36.4 C L 62 16 133/63 94 03/21/22 10:51 36.5 C 63 16 140/61 93 03/21/22 10:20 36.5 C 69 14 144/66 H 95 03/21/22 10:10 65 16 133/65 94 03/21/22 10:00 65 16 134/73 94 03/21/22 09:50 36.4 C L 67 16 133/73 93 03/21/22 09:40 67 14 136/68 94 03/21/22 09:30 69 14 141/67 H 95 03/21/22 09:20 71 14 150/76 H 99 03/21/22 09:10 69 14 154/94 H 99 03/21/22 09:03 36.5 C 75 20 161/86 H 99 03/21/22 06:20 37 C 58 L 18 173/80 H 98 PG Care Time/CCT Total # of Minutes Spent Total Time Spent with Patient: Total time spent is greater than 50% in coordination of care (as documented) at patient's floor/unit and/or counseling patient: Coding Level of Care Code None Diagnoses S/P left inguinal hernia repair Z98.890; Z87.19
[2022-03-21] MEDS: SODIUM CHLORIDE 0.9% 1000ML 1,000 ML IV SCH (17:34)
[2022-03-21] MEDS: ACETAMINOPHEN 500 MG TAB PO SCH (20:24)
[2022-03-21] MEDS: ATORVASTATIN 40 MG TAB PO SCH (20:24)
[2022-03-22] MEDS: ACETAMINOPHEN 500 MG TAB PO SCH ×2 (03:23→12:07)
[2022-03-22] MEDS: ceFAZolin 1000MG 1,000 MG/7.5 ML SYR IV SCH ×2 (06:21→14:51)
[2022-03-22] MEDS ORDERED: HYDROCODONE/ACETAMOPHEN 5/325MG TAB PO PRN (06:31)
[2022-03-22 08:01] LABS: Hematocrit (blood only) 29.2 % (42-52); Hemoglobin 9.6 g/dL (14.0-18.0); Mean Corpuscular Hemoglobin 32.8 pg (25-34); Mean Corpuscular Hgb Conc 32.9 g/dL (32-36); Mean Corpuscular Volume 99.7 fL (80-100); RDW Coefficient of Variation 15.2 % (11.5-14.5); RDW Standard Deviation 55.3 fL (36.4-46.3); Red Blood Count 2.93 M/uL (4.7-6.1); White Blood Count 7.57 K/uL (4.8-10.8)
[2022-03-22 08:15] LABS: Mean Platelet Volume 10.1 fL (7.4-10.4); Platelet Count 64 K/uL (130-400)
[2022-03-22 08:16] LABS: Basophils # (auto) 0.01 K/uL (0-0.2); Basophils % (auto) 0.1 %; Eosinophils # (auto) 0.17 K/uL (0-0.5); Eosinophils % (auto) 2.2 %; Immature Granulocytes # (auto) 0.01 K/uL (0.00-0.02); Immature Granulocytes % (auto) 0.1 %; Lymphocytes % (auto) 27.7 %; Monocytes % (auto) 10.6 %; Neutrophils # (auto) 4.48 K/uL (1.4-6.5); Neutrophils % (auto) 59.3 %
[2022-03-22 08:24] LABS: BUN Creatinine Ratio 18.2 (10-20); Calcium 8.6 mg/dl (8.5-10.1); Creatinine Clr Calc Pharmacy 27.8 ml/min; Est GFR (African American) 43.5 ml/min; Est GFR (Non-African American) 37.6 ml/min; Potassium 3.5 mmol/L (3.5-5.1)
[2022-03-22] MEDS: MAGNESIUM HYDROXIDE SUSP 30 ML UDC PO SCH ×2 (08:25→22:18)
[2022-03-22] MEDS: SODIUM CHLORIDE 0.9% 1000ML 1,000 ML IV SCH (08:25)
[2022-03-22] MEDS: TAMSULOSIN HCL 0.4 MG CAP PO SCH (08:25)
[2022-03-22] MEDS: FINASTERIDE 5 MG TAB PO SCH (08:25)
[2022-03-22] MEDS: DOCUSATE SODIUM/SENNA 50/8.6MG TAB PO SCH ×2 (08:29→20:44)
[2022-03-22 08:32] LABS: RBC Morphology Unremarkable
--- NOTE | 2022-03-22 08:34 | Surgery Progress Note ---
Date of Service March 22, 2022 Assessment & Plan (1) S/P left inguinal hernia repair: Plan: Patient had significant problems with wound bleeding yesterday I gave him DDAVP and also a unit of platelets as he was thrombocytopenic Seems to be much improved today although does have bloody drainage from his drain expected 's penis is swollen Concern for urinary retention-we will discuss with urology Patient requires likely 2-3 more days in the hospital Admission and Anticipated Discharge Date Admission Date: March 21, 2022 Results & Data ([facility]) Vital Signs (Past 12 Hours) Vital Signs Temp Pulse Pulse Resp BP BP Pulse Ox 03/22/22 07:55 36.8 C 64 16 165/82 H 94 03/22/22 03:27 36.8 C 84 16 156/75 H 92 03/21/22 22:29 36.6 C 79 16 125/69 94 03/21/22 20:34 36.6 C 85 16 154/77 H 93 PG Care Time/CCT Total # of Minutes Spent Total Time Spent with Patient: Total time spent is greater than 50% in coordination of care (as documented) at patient's floor/unit and/or counseling patient: Coding Level of Care Code None Diagnoses S/P left inguinal hernia repair Z98.890; Z87.19
[2022-03-22] MEDS: VALSARTAN 80 MG TAB PO SCH (09:34)
--- NOTE | 2022-03-22 10:30 | Urology Progress Note ---
Date of Service March 22, 2022 Assessment & Plan (1) Phimosis of penis: Plan: 86yo M admitted postoperatively s/p circumcision and left inguinal hernia repair - POD #1 s/p circumcision with incision and repair of tethered frenulumwith Dr. Pool. - Bob catheter was removed postoperatively. - There was concern for urinary retention overnight. - He is voiding spontaneously, will continue to monitor. Recommend bladder scan after next void and as needed. Double voiding encouraged. - Penile dressings can be removed later today. - Will arrange outpatient follow-up with urology in 2 to 3 weeks. - Urology to follow peripherally. Please contact us with any further questions, concerns, or changes in patient status. Admission and Anticipated Discharge Date Admission Date: March 21, 2022 Subjective POD #1 s/p circumcision and left inguinal hernia repair Patient examined at bedside this AM. Awake, sitting in bedside chair on arrival. Patient had issues with wound bleeding yesterdaygiven DDAVP and also a unit of platelets as he was thrombocytopenic per primary team. There was concern of urinary retention overnight. He is currently voiding spontaneously. Reports intermittent hematuria. Urine output overnight -575ml. Surgical dressings intact. Afebrile, hemodynamically stable. White blood cell 7.57, hemoglobin 9.6, c reatinine 1.65 Review of Systems Constitutional: as per Subjective / HPI Genitourinary: + as per Subjective / HPI Physical Exam Constitutional: no acute distress Respiratory: normal respiratory effort; no respiratory distress and no labored breathing Neurologic: moves all extremities and awake Psychiatric: A+Ox3, euthymic affect Genitourinary: Penile dressing intact. Edema and bruising noted to penis and scrotum. Results & Data ([facility]) Vital Signs (Past 12 Hours) Vital Signs Temp Pulse Resp BP Pulse Ox 03/22/22 07:55 36.8 C 64 16 165/82 H 94 03/22/22 03:27 36.8 C 84 16 156/75 H 92 03/21/22 22:29 36.6 C 79 16 125/69 94 PG Care Time/CCT Total # of Minutes Spent Total Time Spent with Patient: Total time spent is greater than 50% in coordination of care (as documented) at patient's floor/unit and/or counseling patient: Coding Level of Care Code None Diagnoses Phimosis of penis N47.1
--- NOTE | 2022-03-22 11:53 | Hospitalist Progress Note ---
Date of Service March 22, 2022 Assessment & Plan (1) Left inguinal hernia: Plan: S/P repair with Dr. Wright, POD#1 - Pain control, antibiotics, bowel regimen, diet as per primary attending - Recommend utilizing I/S q1h wa for atelectasis/pna prevention - Bowel regimen - PT/OT eval when able to advance activity (2) Phimosis of penis: Plan: S/P circumcision - Bob discontinued yesterday afternoon - Some concern for urinary retention overnight but pt voiding small amounts frequently - Urology following, recommending post void bladder scans and PRN - Would notify urology service for PVR >300 (3) Thrombocytopenia: Plan: - Chemotherapy induced from being on Chlorambucil for his CLL - Was having significant post op incision bleeding requiring DDAVP and platelet transfusion on 03/21 - Bleeding improved today, platelets 64,000 today (4) CKD (chronic kidney disease): Plan: - Baseline creat 1.6, INVESTIGATIONS DIRECTOR 2.12 on 03/21 (SANDY on CKD) - Gentle IVF provided overnight and this AM INVESTIGATIONS DIRECTOR 1.65, fluids stopped (5) Hypertension: Plan: - Takes Valsartan which was held on 03/21 due to bump in creat to 2.12 (above baseline of 1.6) - This AM, creatinine has normalized, Valsartan resumed (6) BPH (benign prostatic hyperplasia): Plan: - Continue Tamsulosin and Finasteride (7) CLL (chronic lymphocytic leukemia): Plan: - Stable - Follows with oncology, Dr. Disla - Previously treated with Chlorambucil (8) CAD (coronary artery disease): Plan: CAD/Cardiomyopathy/HLD - On Plavix (currently on hold for surgery) would resume 48 post op if gen surgery agreeable - Continue Atorvastatin - Last echo 06/2021, EF 60-65% (prior to that was 40-45%), and WMA * Cardiology evaluated in 12/2021 and provided cardiac clearance Plan: No new recommendations. Will continue to follow. Plan will be d/w Dr. Green. Admission and Anticipated Discharge Date Admission Date: March 21, 2022 Subjective Patient seen on daily rounds this morning. C/o incisional pain and frequent urination. No chest pain, dyspnea, n/v, f/c. Review of Systems Review of Systems: All systems reviewed and are unremarkable except as noted in HPI and below. Denies fever, chills, fatigue, headache, nasal congestion, sore throat, cough, chest pain, shortness of breath, palpitations, orthopnea, PND, abdominal pain, n/v/d, constipation, dysuria, hematuria, frequency, back pain, joint pain or swelling, easy bruising or bleeding, skin lesions or rashes. Physical Exam Physical Exam: GEN: 86 yo WD/WN elderly WM. Pleasant, cooperative. NAD LUNGS: Clear to auscultation bilaterally. No W/R/R. CARDIOVASCULAR: Regular rate and rhythm. No M/G/R. No JVD. ABDOMEN: Soft, NT/ND. No palpable masses. Bowel sounds normoactive x 4 quad. EXTREMITIES: No edema. Non-tender. Peripheral pulses +2/4. NEUROLOGIC: A&O x3. Nonfocal PSYCHIATRIC: Cooperative. Appropriate mood and affect. SKIN: Warm, dry, intact. No rashes or lesions. Incision site is dressed. Results & Data Results & Data ([facility]) Vital Signs (Past 12 Hours) Vital Signs Temp Pulse Resp BP Pulse Ox 03/22/22 07:55 36.8 C 64 16 165/82 H 94 03/22/22 03:27 36.8 C 84 16 156/75 H 92 PG Care Time/CCT Total # of Minutes Spent Total Time Spent with Patient: Total time spent is greater than 50% in coordination of care (as documented) at patient's floor/unit and/or counseling patient: Coding Level of Care Code 96819 Subseq Hosp Care Lvl 2 Diagnoses Left inguinal hernia K40.90 Phimosis of penis N47.1 Hypertension I10 Hypertension type: essential hypertension BPH (benign prostatic hyperplasia) N40.0 Lower urinary tract symptom presence: unspecified whether lower urinary tract symptoms present CKD (chronic kidney disease) N18.9 CLL (chronic lymphocytic leukemia) C91.90 CAD (coronary artery disease) I25.10 Thrombocytopenia D69.6 (1) BPH (benign prostatic hyperplasia) Lower urinary tract symptom presence: unspecified whether lower urinary tract symptoms present Qualified Code(s): N40.0 - Benign prostatic hyperplasia without lower urinary tract symptoms (2) Hypertension Hypertension type: essential hypertension Qualified Code(s): I10 - Essential (primary) hypertension
[2022-03-22] MEDS ORDERED: diphenhydrAMINE Capsule 25 MG CAP PO PRN (15:28)
[2022-03-22] MEDS: ACETAMINOPHEN 500 MG TAB PO PRN (20:43)
[2022-03-22] MEDS: ATORVASTATIN 40 MG TAB PO SCH (20:44)
[2022-03-23] MEDS: ceFAZolin 1000MG 1,000 MG/7.5 ML SYR IV SCH ×2 (05:15→16:49)
[2022-03-23] MEDS: DOCUSATE SODIUM/SENNA 50/8.6MG TAB PO SCH ×2 (08:10→20:43)
[2022-03-23] MEDS: FINASTERIDE 5 MG TAB PO SCH (08:10)
[2022-03-23] MEDS: TAMSULOSIN HCL 0.4 MG CAP PO SCH (08:11)
[2022-03-23] MEDS: VALSARTAN 80 MG TAB PO SCH (08:11)
[2022-03-23] MEDS: ACETAMINOPHEN 500 MG TAB PO PRN (08:13)
[2022-03-23 08:16] LABS: BUN Creatinine Ratio 18.9 (10-20); Calcium 8.6 mg/dl (8.5-10.1); Creatinine Clr Calc Pharmacy 34.7 ml/min; Est GFR (Non-African American) 49.2 ml/min; Potassium 3.2 mmol/L (3.5-5.1)
[2022-03-23] MEDS: MAGNESIUM HYDROXIDE SUSP 30 ML UDC PO SCH ×2 (08:18→20:43)
[2022-03-23 08:23] LABS: Hematocrit (blood only) 31.2 % (42-52); Hemoglobin 10.1 g/dL (14.0-18.0); Mean Corpuscular Hemoglobin 32.5 pg (25-34); Mean Corpuscular Hgb Conc 32.4 g/dL (32-36); Mean Corpuscular Volume 100.3 fL (80-100); RDW Coefficient of Variation 15.3 % (11.5-14.5); RDW Standard Deviation 56.2 fL (36.4-46.3); Red Blood Count 3.11 M/uL (4.7-6.1); White Blood Count 9.75 K/uL (4.8-10.8)
[2022-03-23 08:26] LABS: Mean Platelet Volume 10.6 fL (7.4-10.4); Platelet Count 79 K/uL (130-400)
[2022-03-23 09:06] LABS: Basophils # (auto) 0.02 K/uL (0-0.2); Basophils % (auto) 0.2 %; Eosinophils # (auto) 0.28 K/uL (0-0.5); Eosinophils % (auto) 2.9 %; Immature Granulocytes # (auto) 0.02 K/uL (0.00-0.02); Immature Granulocytes % (auto) 0.2 %; Lymphocytes # (auto) 3.38 K/uL (1.2-3.4); Lymphocytes % (auto) 34.7 %; Monocytes # (auto) 0.87 K/uL (0.11-0.59); Monocytes % (auto) 8.9 %; Neutrophils # (auto) 5.18 K/uL (1.4-6.5); Neutrophils % (auto) 53.1 %
--- NOTE | 2022-03-23 10:17 | Surgery Progress Note ---
Date of Service March 23, 2022 Assessment & Plan (1) S/P left inguinal hernia repair: Plan: Patient continues to need some help getting around the room Still some concern for urinary retention Says he is passing some gas but may have a mild ileus He is receiving Senokot-S and milk of mag twice daily Home health available on Monday I do not think he can be alone at home as of today Physical therapy evaluation ordered Will likely DC his drain prior to discharge-appears earliest discharge would likely be Monday Admission and Anticipated Discharge Date Admission Date: March 21, 2022 Results & Data ([facility]) Vital Signs (Past 12 Hours) Vital Signs Temp Pulse Resp BP Pulse Ox 03/23/22 07:24 37 C 67 16 182/87 H 95 PG Care Time/CCT Total # of Minutes Spent Total Time Spent with Patient: Total time spent is greater than 50% in coordination of care (as documented) at patient's floor/unit and/or counseling patient: Coding Level of Care Code None Diagnoses S/P left inguinal hernia repair Z98.890; Z87.19
--- NOTE | 2022-03-23 13:31 | Hospitalist Progress Note ---
Date of Service March 23, 2022 Assessment & Plan (1) Left inguinal hernia: Plan: S/P repair with Dr. Wright, POD#2 - Pain control, antibiotics, bowel regimen, diet as per primary attending - Recommend utilizing I/S q1h wa for atelectasis/pna prevention - Bowel regimen-still no BM, will order a bisacodyl suppository x1 - PT/OT eval when able to advance activity (2) Phimosis of penis: Plan: S/P circumcision - Bob discontinued yesterday afternoon - Some concern for urinary retention overnight but pt voiding small amounts frequently - Urology following, recommending post void bladder scans and PRN - Would notify urology service for PVR >300-asked RN to notify urology of PVR of 333 this afternoon (3) Thrombocytopenia: Plan: - Chemotherapy induced from being on Chlorambucil for his CLL - Was having significant post op incision bleeding requiring DDAVP and platelet transfusion on 03/21 - No further bleeding issues, plt up to 79 today (4) CKD (chronic kidney disease): Plan: - Baseline creat 1.6, LEGAL EXECUTIVE 2.12 on 03/21 (SANDY on CKD) - Gentle IVF provided overnight and this AM LEGAL EXECUTIVE 1.65, fluids stopped (5) Hypertension: Plan: - Takes Valsartan which was held on 03/21 due to bump in creat to 2.12 (above baseline of 1.6) - After IVF, creatinine normalized, Valsartan resumed on 03/22 (6) BPH (benign prostatic hyperplasia): Plan: - Continue Tamsulosin and Finasteride (7) CLL (chronic lymphocytic leukemia): Plan: - Stable - Follows with oncology, Dr. Disla - Previously treated with Chlorambucil (8) CAD (coronary artery disease): Plan: CAD/Cardiomyopathy/HLD - On Plavix (currently on hold for surgery) would resume 48 post op if gen surgery agreeable - Continue Atorvastatin - Last echo 06/2021, EF 60-65% (prior to that was 40-45%), and WMA * Cardiology evaluated in 12/2021 and provided cardiac clearance Plan: Potassium supplemented for K+ of 3.2. Bisacodyl suppository as above. BMP in AM. Will continue to follow. Plan will be d/w Dr. Green. Admission and Anticipated Discharge Date Admission Date: March 21, 2022 Subjective Patient seen on rounds this morning. He continues to have urinary frequency and voiding small amounts. Pain is controlled. Passing flatus but no BM since surgery. Denies abd pain, n/v. RN informed yesterday and again today that he is having urinary retention. Review of Systems Review of Systems: All systems reviewed and are unremarkable except as noted in HPI and below. Denies fever, chills, fatigue, headache, nasal congestion, sore throat, cough, chest pain, shortness of breath, palpitations, orthopnea, PND, abdominal pain, n/v/d, constipation, dysuria, hematuria, back pain, joint pain or swelling, easy bruising or bleeding, skin lesions or rashes. Physical Exam Physical Exam: GEN: 86 yo WD/WN elderly WM. Pleasant, cooperative. NAD LUNGS: Clear to auscultation bilaterally. No W/R/R. CARDIOVASCULAR: Regular rate and rhythm. No M/G/R. No JVD. ABDOMEN: Soft, NT/ND. No palpable masses. Bowel sounds normoactive x 4 quad. EXTREMITIES: No edema. Non-tender. Peripheral pulses +2/4. NEUROLOGIC: A&O x3. Nonfocal PSYCHIATRIC: Cooperative. Appropriate mood and affect. SKIN: Warm, dry, intact. No rashes or lesions. Incision site is dressed. Results & Data Results & Data ([facility]) Vital Signs (Past 12 Hours) Vital Signs Temp Pulse Resp BP Pulse Ox 03/23/22 07:24 37 C 67 16 182/87 H 95 Laboratory Results 03/23/22 07:23 03/23/22 07:23 PG Care Time/CCT Total # of Minutes Spent Total Time Spent with Patient: Total time spent is greater than 50% in coordination of care (as documented) at patient's floor/unit and/or counseling patient: Coding Level of Care Code 00263 Subseq Hosp Care Lvl 2 Diagnoses Left inguinal hernia K40.90 Phimosis of penis N47.1 Thrombocytopenia D69.6 CKD (chronic kidney disease) N18.9 Hypertension I10 Hypertension type: essential hypertension BPH (benign prostatic hyperplasia) N40.0 Lower urinary tract symptom presence: unspecified whether lower urinary tract symptoms present CLL (chronic lymphocytic leukemia) C91.90 CAD (coronary artery disease) I25.10 (1) Hypertension Hypertension type: essential hypertension Qualified Code(s): I10 - Essential (primary) hypertension (2) BPH (benign prostatic hyperplasia) Lower urinary tract symptom presence: unspecified whether lower urinary tract symptoms present Qualified Code(s): N40.0 - Benign prostatic hyperplasia without lower urinary tract symptoms
[2022-03-23] MEDS ORDERED: bisacodyL 10 MG SUPP PR STA (13:33)
[2022-03-23] MEDS ORDERED: POTASSIUM CHLORIDE CRTAB 20 MEQ TABCR PO STA (13:33)
[2022-03-23] MEDS: ATORVASTATIN 40 MG TAB PO SCH (20:43)
[2022-03-24] MEDS: ceFAZolin 1000MG 1,000 MG/7.5 ML SYR IV SCH (04:19)
--- NOTE | 2022-03-24 06:42 | Surgery Progress Note ---
Date of Service March 24, 2022 Assessment & Plan (1) S/P left inguinal hernia repair: Plan: GENNA drain removed Patient is unsteady on his feet Overall tolerating diet Voiding Has ecchymosis but minimal hematoma I do not feel he can be at home by himself Will need to determine his discharge plans Admission and Anticipated Discharge Date Admission Date: March 21, 2022 Results & Data ([facility]) Vital Signs (Past 12 Hours) Vital Signs Temp Pulse Resp BP Pulse Ox 03/24/22 06:33 36.5 C 71 18 169/82 H 96 03/23/22 23:16 36.5 C 80 12 166/76 H 93 PG Care Time/CCT Total # of Minutes Spent Total Time Spent with Patient: Total time spent is greater than 50% in coordination of care (as documented) at patient's floor/unit and/or counseling patient: Coding Level of Care Code None Diagnoses S/P left inguinal hernia repair Z98.890; Z87.19
[2022-03-24] MEDS: FINASTERIDE 5 MG TAB PO SCH (08:24)
[2022-03-24] MEDS: VALSARTAN 80 MG TAB PO SCH (08:24)
[2022-03-24] MEDS: TAMSULOSIN HCL 0.4 MG CAP PO SCH (08:24)
[2022-03-24] MEDS: DOCUSATE SODIUM/SENNA 50/8.6MG TAB PO SCH (08:27)
[2022-03-24 09:30] LABS: BUN Creatinine Ratio 17.2 (10-20); Calcium 8.9 mg/dl (8.5-10.1); Creatinine Clr Calc Pharmacy 37.6 ml/min; Est GFR (African American) 62.7 ml/min; Est GFR (Non-African American) 54.1 ml/min; Potassium 3.9 mmol/L (3.5-5.1)
--- NOTE | 2022-03-24 13:06 | Hospitalist Progress Note ---
Date of Service March 24, 2022 Assessment & Plan (1) Left inguinal hernia: Plan: S/P repair with Dr. Wright, POD#3 - Pain control, antibiotics, bowel regimen, diet as per primary attending - Recommend utilizing I/S q1h wa for atelectasis/pna prevention - Bowel regimen-had large BM this morning - PT eval (seen 03/24) - advised home health upon d/c (2) Phimosis of penis: Plan: S/P circumcision - Bob discontinued afternoon of 03/21 - Some concern for urinary retention overnight (03/21-03/22) but pt voiding small amounts frequently - Urology following, recommending post void bladder scans and PRN - Would notify urology service for PVR >300 (3) Thrombocytopenia: Plan: - Chemotherapy induced from being on Chlorambucil for his CLL - Was having significant post op incision bleeding requiring DDAVP and platelet transfusion on 03/21 - No further bleeding issues, plts improved to 79 on 03/23 labs (4) CKD (chronic kidney disease): Plan: - Baseline creat 1.6, POST TENSIONING IRONWORKER HELPER 2.12 on 03/21 (SANDY on CKD) - Gentle IVF provided and POST TENSIONING IRONWORKER HELPER returned to baseline (5) Hypertension: Plan: - Takes Valsartan which was held on 03/21 due to bump in creat to 2.12 (above baseline of 1.6) - After IVF, creatinine normalized, Valsartan resumed on 03/22 (6) BPH (benign prostatic hyperplasia): Plan: - Continue Tamsulosin and Finasteride (7) CLL (chronic lymphocytic leukemia): Plan: - Stable - Follows with oncology, Dr. Disla - Previously treated with Chlorambucil (8) CAD (coronary artery disease): Plan: CAD/Cardiomyopathy/HLD - On Plavix (currently on hold for surgery) would resume 48 post op if gen surgery agreeable - Continue Atorvastatin - Last echo 06/2021, EF 60-65% (prior to that was 40-45%), and WMA * Cardiology evaluated in 12/2021 and provided cardiac clearance Plan: No further recommendations for this patient. From medicine standpoint, he is medically stable for discharge. Would advise f/u with general surgery as directed and PCP within 7-10 days of discharge. Will sign off at this time, please feel free to contact if any acute issues should arise. Plan to be d/w Dr. Reveles. Admission and Anticipated Discharge Date Admission Date: March 21, 2022 Subjective Patient seen on rounds this morning. He had large BM this morning. No incisional pain. Continues to have urinary hesitancy but is voiding decent amounts. No chest pain or dyspnea. No fever/chills. Tolerating diet, no n/v. Review of Systems Review of Systems: All systems reviewed and are unremarkable except as noted in HPI and below. Denies fever, chills, fatigue, headache, nasal congestion, sore throat, cough, chest pain, shortness of breath, palpitations, orthopnea, PND, abdominal pain, n/v/d, constipation, dysuria, hematuria, back pain, joint pain or swelling, easy bruising or bleeding, skin lesions or rashes. Physical Exam Physical Exam: GEN: 86 yo WD/WN elderly WM. Pleasant, cooperative. NAD LUNGS: Clear to auscultation bilaterally. No W/R/R. CARDIOVASCULAR: Regular rate and rhythm. No M/G/R. No JVD. ABDOMEN: Soft, NT/ND. No palpable masses. BS normoactive x 4 quad. EXTREMITIES: No edema. Non-tender. Peripheral pulses +2/4. NEUROLOGIC: A&O x3. Nonfocal PSYCHIATRIC: Cooperative. Appropriate mood and affect. SKIN: Warm, dry, intact. No rashes or lesions. Incision site is dressed. Results & Data Results & Data ([facility]) Vital Signs (Past 12 Hours) Vital Signs Temp Pulse Resp BP Pulse Ox 03/24/22 07:25 37 C 69 16 173/82 H 93 03/24/22 06:33 36.5 C 71 18 169/82 H 96 Laboratory Results 03/23/22 07:23 03/24/22 08:40 PG Care Time/CCT Total # of Minutes Spent Total Time Spent with Patient: Total time spent is greater than 50% in coordination of care (as documented) at patient's floor/unit and/or counseling patient: Coding Level of Care Code 21427 Subseq Hosp Care Lvl 1 Diagnoses Left inguinal hernia K40.90 Phimosis of penis N47.1 Thrombocytopenia D69.6 CKD (chronic kidney disease) N18.9 Hypertension I10 Hypertension type: essential hypertension BPH (benign prostatic hyperplasia) N40.0 Lower urinary tract symptom presence: unspecified whether lower urinary tract symptoms present CLL (chronic lymphocytic leukemia) C91.90 CAD (coronary artery disease) I25.10 (1) BPH (benign prostatic hyperplasia) Lower urinary tract symptom presence: unspecified whether lower urinary tract symptoms present Qualified Code(s): N40.0 - Benign prostatic hyperplasia without lower urinary tract symptoms (2) Hypertension Hypertension type: essential hypertension Qualified Code(s): I10 - Essential (primary) hypertension
--- NOTE | 2022-03-29 14:30 | Discharge Summary ---
Date of Service March 29, 2022 Principal Diagnosis 1. Left inguinal hernia 2. Phimosis 3. CLL 4. CKD, SANDY Discharge Exam Constitutional WD/WN, vitals as above Cardiovascular Rate/Rhythm: regular rate Gastrointestinal (Abdomen) Inspection/Auscultation: + abdominal surgical incision (clean, dry); abdomen not distended Percussion/Palpation: abdomen soft Discharge Data Allergies Allergy/AdvReac Type Severity Reaction Status Date / Time KVNG Inhibitors AdvReac Mild Cough Verified 03/29/22 13:59 codeine AdvReac Mild Nausea Verified 03/29/22 13:59 Consultations 03/21/22 08:59 Consult Hospitalist Stat Procedures Performed Operation Date: 03/21/22 07:00 Actual Procedures p Circumcision(Not Applicable) - Marques Pool, s Open Left Inguinal Hernia Repair with Mesh(Left) - Haseeb Wright MD, [facility] Hospital Course (1) S/P left inguinal hernia repair: 86 y/o male was taken to the operating room for for repair of left inguinal hernia and circumcision. Given his age and medical history, he was transferred to the surgical floor for observation. He had some bleeding from his incision that evening which was sutured at the bedside and he was given DDAVP and platelets given h/o CLL and chemotherapy. He did not have any further bleeding. GENNA drain was removed on POD 3. Urology continued to follow along. Hospitalists also assisted with management of HTN and CKD/SANDY. He was stable for discharge home on POD 3 with home health. Total Time Total Time Spent Total Time Spent (In Minutes): 15 Discharge Plan Discharge Items Reason For Visit: Urinary Leakage, BPH Loc w/o ur Obs/LUTS Discharge Diagnosis: Hernia. Phimosis Activity: Per Instructions section Activity Comment: light activity for 4 weeks Lifting: No more than 10 pounds Bathing Comment: may shower; no soaking in tubs/pools Sexual Activity: When tolerated Exercise/Sports: Wait until after follow-up appointment Exercise Comment: wait at least 4 weeks Driving/Machine Use: wait at least 1 week; no driving while taking narcotics for pain Non-emergency contact: Surgeon Call non-emergency contact if: you have any medication questions, your symptoms worsen, your pain is not controlled, your pain is worsening, your pain is unusual for you, your pain is concerning for you, you have a fever, your temperature is above 101.5, your wound has increased redness, your wound has increased drainage and your wound pain has increased Follow-up/Referrals: Haseeb Wright MD, FACS [Physician] - 03/28/22 8:30 am Christopher Kearns MD [Primary Care Provider] - Marques Pool DO [Physician] - 04/13/22 9:00 am Diet: Regular Addtl Attending Provider Instructions: UROLOGY: Please take all medications as prescribed and keep all follow-ups as scheduled. Please call our office at [phone] with any questions, concerns or need to reschedule appointments for any reason. We are happy to assist you. What to expect after your circumcision surgery: You will probably see a crust of blood or yellowish coating around the head of the penis. Do not remove scabs. Its OK if they fall off on their own. Your penis will swell. It may bleed a little around the incision. The head of the penis may become red or [id number]. You may experience pain with urination for the first few days. Take pain medicine if you feel you need it. Healing takes about 2-3 weeks, and your stitches will dissolve on their own, unless you have been informed otherwise. When to call [facility] Urology at [phone] (or report to the ED if it is after hours): Fever of 101F or higher Discharge that is heavy, a greenish color, or lasts more than a week Bleeding that isnt controlled by applying gentle pressure Inability to urinate Dr Wright: SPECIAL CARE INSTRUCTIONS: * Cover incisions and change daily for comfort/drainage. * May use ibuprofen for pain as tolerated. * Expect some swelling and bruising. Call your doctor if: * Temperature above 101 degrees * Pain not relieved by pain medicine ordered * There is increased drainage or redness from any incision * You have any unanswered questions or concerns [phone]. FOLLOW UP VISIT: If not already scheduled, please call the office for a follow-up visit. OFFICE PHONE NUMBER: Dr. Wright Office You may resume your Plavix on 03/25/22 Pending Studies at Discharge: No Stand-Alone Forms: [facility] [employer] Medications and DC Order Prescriptions: New clotrimazole-betamethasone 1-0.05 % cream 1 applic topical TID PRN (Reason: Swelling) Qty: 45 RF: 11 Continued clopidogrel [Plavix] 75 mg tablet 75 mg PO DAILY Qty: 90 RF: 3 atorvastatin 40 mg tablet 40 mg PO HS Qty: 90 RF: 3 tamsulosin 0.4 mg capsule 0.4 mg PO QAM Qty: 90 RF: 3 acetaminophen 500 mg capsule 500 mg PO Q6H PRN (Reason: Pain) RF: 0 valsartan 80 mg tablet 80 mg PO QAM Qty: 30 RF: 5 calcium carbonate-vitamin D3 [Calcium 600 + D(3)] 600 mg(1,500mg) -400 unit Tablet 1 tab PO BID RF: 0 cholecalciferol (vitamin D3) [Vitamin D3] 2,000 unit Tablet 2,000 unit PO QAM RF: 0 fluticasone propionate 50 mcg/actuation [place],Suspension 2 spray INTRANASAL DAILY PRN (Reason: Allergic Symptoms) RF: 0 finasteride 5 mg tablet 5 mg PO QAM RF: 0 Krames/Other Patient Handouts: Having Hernia Surgery: Patch Repair, ED OVERACTIVE BLADDER Male Adult Admission Data Admit Date/Time: 03/21/22 08:59 Attending Provider: Haseeb Wright Admit Provider: Haseeb Wright Primary Care Provider: Christopher Kearns Other Interventions: Discharge Summary Assessment (RN) Last Done: 03/24/22 14:55 Coding Level of Care Code D/C DAY MANAGEMENT <30 MINS Diagnoses S/P left inguinal hernia repair Z98.890; Z87.19
== END 2022-03-24 16:07 | disposition home or self-care (01) ==
LOC: ASU 05:25 → 3N 08:59 → INTOOBSV 08:59

== ENCOUNTER 2022-06-27 15:12 | Inpatient (IN) ==
[2022-06-27] MEDS ORDERED: ONDANSETRON INJ 2 MG/ML 2 ML VIAL IV STA (15:50)
[2022-06-27] MEDS ORDERED: fentaNYL citrate 100 MCG/2 ML VIAL IV STA (15:50)
--- NOTE | 2022-06-27 15:50 | Emergency Department Note ---
Impression & Plan Periprosthetic hip fracture ED Provider Note Name: MIAN PRETTY Age: 86 Sex: M Arrives Via: Ambulance Informant: Patient, toddler caregiver ED Provider: Heri Weber MD Chief Complaint: Fall Impression: As per impressions above Medical Decision Making: Pleasant 86-year-old gentleman with extensive past medical history and frequent falls arrives for evaluation following a trip and fall this morning landing on his left hip. Severe pain in the hip and unable to ambulate for the last 6 hours until was able to call 911. Arrives in moderate distress was given IV fentanyl with improvement. X-rays of the left hip reveal periprosthetic femur fracture. He has significant urinary retention that I think is mostly how he is sitting in the pain he was in rather than a neurologic issue. He has full sensation in his leg good pulses. Discussed the case with on-call orthopedics who feel this is something we should be able to repair at this facility and will likely do so in 48 hours. Hospitalist was consulted given the extensive past medical history and they will bring the patient into their service. Patient was given some light hydration given he appears dehydrated by examination as well. Labs with mild CK elevation as a mild troponin elevation. This is likely from laying on the floor for some time and just some mild rhabdo. Patient without any chest pain nor evidence of ACS. He is adamant this was a mechanical fall. Patient without headache, neck pain and has no neurologic deficits on examination. I do not see indication for CT imaging of the brain at this time given his only blood thinner is Plavix. His thrombocytopenia is relatively chronic in the setting of his CLL and elevated white blood cell count. Prior Medical Record and Triage/Nursing Notes reviewed by Me Additional history obtained from chart Differentials:Fracture/dislocation, compartment syndrome, neurovascular compromise as well as infection, dehydration, metabolic abnormality, hypo/hyperglycemia, electrolyte disturbance, anemia, hypoxia, cardiac sources, intracerebral event, toxicologic, neurologic, as well as other pathologies. Vital Signs: reviewed and remarkable for no significant abnormalities Interventions: Fentanyl IV Labs:Reviewed and remarkable for mild CK and troponin elevations Imaging:Pelvis with left hip and femur reveals periprosthetic left femur fracture. Chest x-ray unremarkable Consults:Dr Covington [facility], Dr C[place]ton [place] Hospitalist Plan: Disposition:Hospitalization Condition: Good History of Present Illness:86-year-old gentleman arrives for evaluation of left hip pain. Patient notes he tripped and fell this morning landing on his left hip. Is unable to get up so he drag himself around the house throughout the day. Eventually was able to call 911 for help. He notes primarily having left hip pain. He denies any headache, neck pain. He notes multiple contusions and bruises over his arms and legs. These are of varying ages as he falls quite regularly. He has daily home health and evaluations. He is on Plavix daily. He denies striking his head and he denies any neurologic deficits. He states there is no inciting event other than he just tripped and fell. Any movement of his left leg causes pain rest makes it better. ROS: See above HPI for pertinent positives & negatives. A total of 10 systems reviewed and were otherwise negative. Past Medical History:See Below Past Surgical History:See Below Family History:See Below Social History:See Below Home Medications:See Below Allergies:kvng inhibitor, codeine Vitals:Blood Pressure: 180/104, Pulse 77, RR 19, T 37.1C, O2 98% on RA Physical Exam: GENERAL: Patient is chronically unwell/elderly appearing and in mild distress. EYES: No scleral icterus, unremarkable pupils. ENT: Mucous membranes moist, no nasal congestion. NECK: No masses appreciated, nomeningismus, trachea is midline. RESPIRATORY: No dyspnea. Clear to auscultation and equal bilaterally. No wheeze, no rhonchi. CARDIOVASCULAR: Regular rate and rhythm.No murmurs, rubs, gallops appreciated. GASTROINTESTINAL: Abdomen soft, non-tender, no peritonitis.Bowel sounds positive.No masses appreciated. BACK: No midline tenderness, no CVA tenderness EXTREMITIES: Shortened externally rotated left leg with TTP over mid thigh and lateral left hip. Otherwise normal motion all extremities, no cyanosis, no edema. NEUROLOGIC: Alert and oriented, no acute motor or sensory deficits, no focal weakness, cranial nerves grossly intact. SKIN: Extensive bruising and skin tears of varying ages. No rash, no jaundice, no diaphoresis. PSYCH: Appropriate GCS: 15 ED Course: Times/Reassessments: Patient is feeling better after some IV pain medications as well as a Bob placement. 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 Evidence for stent repair of the descending thoracic aorta. 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 Bifascicular block Chronic, dating back to at least 08/2018 per chart review Bilateral inguinal hernia BPH (benign prostatic hyperplasia) WITH URINARY LEAKAGE CAD (coronary artery disease) Nonobstructive per cardio records (pt denies cardiac cath per 01/18/22 cardio note_ Cardiomyopathy EF 60-65% per 06/2021 ECHO Carotid artery disease S/p left carotid endarterectomy (2013) Per neck CTA 10/23/20= No significant carotid artery disease CKD (chronic kidney disease) CLL (chronic lymphocytic leukemia) Hearing deficit History of seizure Ayer r/t hypoglycemic episodes (last ) History of stroke Initial stroke 2007- felt secondary to carotid disease (s/p left CEA) Possible second CVA shortly after first CVA Per records- CVA 10/23/20 On Plavix No residual effects Hyperlipidemia Hypertension Hypertension Left thigh pain Osteoporosis Right inguinal hernia Right inguinal hernia Surgical History H/O right inguinal hernia repair (08/03/20) H/O thoracic aortic aneurysm repair Hip fracture requiring operative repair History of carotid endarterectomy History of cataract surgery History of hernia surgery History of left hip replacement History of right hip replacement History of tonsillectomy Hx of nasal polypectomy Nausea and vomiting after administration of anesthetic agent S/P left inguinal hernia repair (03/21/22) Status post incision and drainage (06/26/20) Family History Brother Colorectal cancer Stroke Family history of diabetes mellitus Father Heart disease Hypertension Stroke Other No family history of adverse response to anesthesia Denies family history of Ovarian cancer Prostate cancer Myocardial infarction Breast cancer Social History Smoking Status: Former smoker Tobacco Type: Cigarettes packs per day: 0.75; Years Smoked: 50; Cigarettes Per Day: 12 YEARS AGO; Smoking End Date: 2009; Second Hand Exposure: No; Tobacco Cessation Education Requested by Patient: No Hx Alcohol Use: Yes Alcohol type: beer and wine Alcohol Intake Frequency: 4 or More x per/Week Alcohol Intake Frequency Comment: 14 Hx Substance Use: No Preferred Language: [place] Communication Ability: Effective Communication Ability Comment: Pt. [place] bilaterally Visual Impairment: No Limitations Hearing Ability: Use of Hearing Aid [place] Required: No Beliefs That Will Affect Care: None marital status: / Current Living Situation: Alone current occupational status: retired How many Children do You have: 0 Feels Safe at Home: Yes Safety Concerns: Feels Safe At This Time Childhood Exposure to Second-Hand Smoke: Yes Dental Care, Regularly: Yes Physical Activity Frequency: 1-2 Times per Week Seatbelt Use: always Sunscreen Use: No Assistive Devices: Glasses and Hearing Aid - Bilateral Assistive Devices Comment: Assistive devices at bedside Allergies Allergies Allergy/AdvReac Type Severity Reaction Status Date / Time KVNG Inhibitors AdvReac Mild Cough Verified 06/10/22 14:43 codeine AdvReac Mild Nausea Verified 06/10/22 14:43 Home Meds Home Medications Medication Instructions Recorded Confirmed calcium carbonate 600 mg-vitamin 1 tab PO BID 05/16/19 06/10/22 D3 10 mcg (400 unit) tablet (Calcium 600 + D(3)) cholecalciferol (vitamin D3) 50 2,000 unit PO QAM 05/16/19 06/10/22 mcg (2,000 unit) tablet (Vitamin D3) acetaminophen 500 mg capsule 500 mg PO Q6H PRN Pain 07/23/19 06/10/22 fluticasone propionate 50 2 spray intranasal DAILY PRN 07/21/20 06/10/22 mcg/actuation nasal Allergic Symptoms spray,suspension finasteride 5 mg tablet 5 mg PO QAM 01/26/22 06/10/22 Previous Rx's Medication Instructions Recorded atorvastatin 40 mg tablet 40 mg PO HS #90 tabs 10/11/21 tamsulosin 0.4 mg capsule 0.4 mg PO QAM #90 caps 02/07/22 valsartan 80 mg tablet 80 mg PO QAM #30 tabs 03/08/22 clotrimazole-betamethasone 1 1 applic topical TID PRN Swelling 03/21/22 %-0.05 % topical cream #45 grams clopidogrel 75 mg tablet (Plavix) 75 mg PO DAILY #90 tabs 05/03/22 Results & Data (ED) Vital Signs Vital Signs - 24 hr 06/27/22 15:20 06/27/22 16:05 06/27/22 16:30 Temperature 37.1 C Temperature Source Oral Pulse Rate 77 105 H 104 H Pulse Rate from SpO2 Sensor 105 H 105 H Pulse Rhythm Regular Pulse Strength Normal Respiratory Rate 19 21 24 Respiratory Effort / Characteristics Non-Labored Respiratory Depth Normal Respiratory Pattern Regular Blood Pressure 180/104 H 143/108 H Blood Pressure Mean 129 119 Blood Pressure Position Lying Pulse Oximetry 98 96 97 Oxygen Delivery Method Room Air Sepsis Recent Fever Within 48 Hours No Sepsis New/Unexplained Change in Mental Status N/A Sepsis Action Taken by Nursing No Action Required 06/27/22 15:05 06/27/22 17:00 06/27/22 17:07 Temperature Temperature Source Pulse Rate 107 H 99 H Pulse Rate from SpO2 Sensor 107 H 99 H Pulse Rhythm Pulse Strength Respiratory Rate 16 20 22 Respiratory Effort / Characteristics Non-Labored Respiratory Depth Normal Respiratory Pattern Regular Blood Pressure Blood Pressure Mean Blood Pressure Position Pulse Oximetry 96 97 Oxygen Delivery Method Sepsis Recent Fever Within 48 Hours Sepsis New/Unexplained Change in Mental Status Sepsis Action Taken by Nursing 06/27/22 17:07 06/27/22 17:30 06/27/22 17:30 Temperature Temperature Source Pulse Rate 91 H Pulse Rate from SpO2 Sensor 92 H Pulse Rhythm Pulse Strength Respiratory Rate 23 Respiratory Effort / Characteristics Respiratory Depth Respiratory Pattern Blood Pressure 125/77 96/57 L Blood Pressure Mean 93 70 Blood Pressure Position Pulse Oximetry 85 L Oxygen Delivery Method Sepsis Recent Fever Within 48 Hours Sepsis New/Unexplained Change in Mental Status Sepsis Action Taken by Nursing 06/27/22 18:00 06/27/22 18:00 06/27/22 18:30 Temperature Temperature Source Pulse Rate 89 Pulse Rate from SpO2 Sensor 88 Pulse Rhythm Pulse Strength Respiratory Rate 22 Respiratory Effort / Characteristics Respiratory Depth Respiratory Pattern Blood Pressure 157/74 H 161/73 H Blood Pressure Mean 101 102 Blood Pressure Position Pulse Oximetry 93 Oxygen Delivery Method Sepsis Recent Fever Within 48 Hours Sepsis New/Unexplained Change in Mental Status Sepsis Action Taken by Nursing 06/27/22 18:30 Temperature Temperature Source Pulse Rate 81 Pulse Rate from SpO2 Sensor 82 Pulse Rhythm Pulse Strength Respiratory Rate 21 Respiratory Effort / Characteristics Respiratory Depth Respiratory Pattern Blood Pressure Blood Pressure Mean Blood Pressure Position Pulse Oximetry 95 Oxygen Delivery Method Sepsis Recent Fever Within 48 Hours Sepsis New/Unexplained Change in Mental Status Sepsis Action Taken by Nursing Laboratory Data Result diagrams: 06/27/22 15:20 06/27/22 15:20 Lab Results 06/27/22 06/27/22 06/27/22 Range/Units 15:20 15:20 17:05 WBC 29.49 H (4.8-10.8) K/ul RBC 3.85 L (4.63-6.08) M/uL Hgb 12.6 L (14.0-18.0) g/dl Hct 36.3 L (40.1-51.0) % MCV 94.3 (80.0-100.0) fL MCH 32.7 (25.0-34.0) pg MCHC 34.7 (32.0-36.0) g/dL RDW Std Deviation 51.1 H (36.4-46.3) fL RDW Coeff of Jewel 14.7 H (11.5-14.5) % Plt Count 63 L (130-400) K/uL MPV 11.5 (9.4-12.4) fL Immature Gran % (Auto) 0.3 % Neut % (Auto) 33.4 % Lymph % (Auto) 62.5 % [place] % (Auto) 3.6 % Eos % (Auto) 0.0 % Baso % (Auto) 0.2 % Neut # (Auto) 9.85 H (1.4-6.5) K/uL Lymph # (Auto) 18.44 H (1.2-3.4) K/uL [place]er # (Auto) 1.05 H (0.24-0.82) K/uL Eos # (Auto) 0.00 (0-0.50) K/uL Baso # (Auto) 0.05 (0-0.2) K/uL Immature Gran # (Auto) 0.10 H (0.00-0.02) K/uL Smudge Cells Present Sodium 139 (136-145) mmol/L Potassium 3.7 (3.5-5.1) mmol/L Chloride 105 (98-107) mmol/L Carbon Dioxide 25 (21-32) mmol/L Anion Gap 9 (3-11) BUN 31 H (6-23) mg/dl Creatinine 1.39 (0.6-1.4) mg/dl Est Cr Clr Drug Dosing 30.2 ml/min Est GFR ( Amer) 53.6 ml/min Est GFR (Non-Af Amer) 46.2 ml/min BUN/Creatinine Ratio 22.3 H (10-20) Glucose 103 H (70-99(Fasting)) mg/dl Calcium 10.2 H (8.5-10.1) mg/dl Magnesium 2.0 (1.7-2.4) mg/dl Total Creatine Kinase 249 H (30-223) U/L Troponin I High Sens 39.2 H D (0-20) pg/ml Urine Color Yellow Urine Appearance Clear (Clear) Urine pH 6.5 (4.5-7.5) Ur Specific [place] 1.012 (1.000-1.030) Urine Protein 1+ H (Negative) Urine Glucose (UA) Trace H (Negative) Urine Ketones Negative (Negative) Urine Blood 2+ H (Negative) Urine Nitrite Negative (Negative) Urine Bilirubin Negative (Negative) Urine Urobilinogen Negative (Negative) Ur Leukocyte Esterase Negative (Negative) Urine WBC (Auto) 1-5 (0-5) /hpf Urine RBC (Auto) 10-30 H (0-4) /hpf U Hyaline Cast (Auto) 0 (0-5) /lpf U Epithel Cells (Auto) 5-10 H (0-5) /lpf Urine Bacteria (Auto) Negative (Negative) SARS-CoV-2, RNA, NAAT (NEGATIVE) 06/27/22 Range/Units 17:54 WBC (4.8-10.8) K/ul RBC (4.63-6.08) M/uL Hgb (14.0-18.0) g/dl Hct (40.1-51.0) % MCV (80.0-100.0) fL MCH (25.0-34.0) pg MCHC (32.0-36.0) g/dL RDW Std Deviation (36.4-46.3) fL RDW Coeff of Jewel (11.5-14.5) % Plt Count (130-400) K/uL MPV (9.4-12.4) fL Immature Gran % (Auto) % Neut % (Auto) % Lymph % (Auto) % [place] % (Auto) % Eos % (Auto) % Baso % (Auto) % Neut # (Auto) (1.4-6.5) K/uL Lymph # (Auto) (1.2-3.4) K/uL [place] # (Auto) (0.24-0.82) K/uL Eos # (Auto) (0-0.50) K/uL Baso # (Auto) (0-0.2) K/uL Immature Gran # (Auto) (0.00-0.02) K/uL Smudge Cells Sodium (136-145) mmol/L Potassium (3.5-5.1) mmol/L Chloride (98-107) mmol/L Carbon Dioxide (21-32) mmol/L Anion Gap (3-11) BUN (6-23) mg/dl Creatinine (0.6-1.4) mg/dl Est Cr Clr Drug Dosing ml/min Est GFR ( Amer) ml/min Est GFR (Non-Af Amer) ml/min BUN/Creatinine Ratio (10-20) Glucose (70-99(Fasting)) mg/dl Calcium (8.5-10.1) mg/dl Magnesium (1.7-2.4) mg/dl Total Creatine Kinase (30-223) U/L Troponin I High Sens (0-20) pg/ml Urine Color Urine Appearance (Clear) Urine pH (4.5-7.5) Ur Specific [place] (1.000-1.030) Urine Protein (Negative) Urine Glucose (UA) (Negative) Urine Ketones (Negative) Urine Blood (Negative) Urine Nitrite (Negative) Urine Bilirubin (Negative) Urine Urobilinogen (Negative) Ur Leukocyte Esterase (Negative) Urine WBC (Auto) (0-5) /hpf Urine RBC (Auto) (0-4) /hpf U Hyaline Cast (Auto) (0-5) /lpf U Epithel Cells (Auto) (0-5) /lpf Urine Bacteria (Auto) (Negative) SARS-CoV-2, RNA, NAAT NEGATIVE (NEGATIVE) Administered Medications Acetaminophen (Acetaminophen 325 Mg Tab) 650 mg PO Q4H PRN PRN Reason: Pain or Fever Stop: 07/27/22 20:49 Last Admin: 06/27/22 23:08 Dose: 650 mg Documented By: MPC Atorvastatin Calcium (Atorvastatin 40 Mg Tab) 40 mg PO HS JORGE Stop: 07/27/22 20:59 Last Admin: 06/27/22 21:42 Dose: 40 mg Documented By: JOSE Heparin Sodium (Porcine) (Heparin Sod 5,000 Unit/0.5 Ml Vial) 5,000 units SQ Q12 JORGE Stop: 07/27/22 20:59 Last Admin: 06/27/22 21:43 Dose: 5,000 units Documented By: JOSE Sodium Chloride (Nss 1000ml) 1,000 mls @ 80 mls/hr IV .[id number] JORGE Stop: 07/27/22 20:49 Last Admin: 06/27/22 20:52 Dose: 80 mls/hr Documented By: ALESHA Multivitamins/Minerals (Calcium 600mg + Vit D 400 Iu Tab) 1 tab PO BID JORGE Stop: 07/27/22 20:59 Last Admin: 06/27/22 21:42 Dose: 1 tab Documented By: JOSE Discontinued Medications Fentanyl Citrate (Fentanyl Citrate 100 Mcg/2 Ml Vial) 50 mcg IV NOW STA Stop: 06/27/22 15:51 Last Admin: 06/27/22 16:33 Dose: 50 mcg Documented By: GABRIELA Sodium Chloride (Nss 1000ml) 1,000 mls @ 999 mls/hr IV .[id number] ONE Stop: 06/27/22 18:53 Last Infusion: 06/27/22 18:55 Dose: 0 mls/hr Documented By: Admin: 06/27/22 17:54 Dose: 999 mls/hr Documented By: GABRIELA Ondansetron HCl (Ondansetron Inj 2 Mg/Ml 2 Ml Vial) 4 mg IV NOW STA Stop: 06/27/22 15:51 Last Admin: 06/27/22 16:33 Dose: 4 mg Documented By: GABRIELA Imaging Data Radiologist's Impression: Chest X-Ray 06/27/22 15:47 XR chest 1V portable CLINICAL HISTORY: fall hip injury TECHNIQUE: Single frontal radiograph of the chest was obtained. Comparison: Comparison is made to chest radiograph 8222 FINDINGS: Aortic graft is seen. The cardiomediastinal silhouette is stable. The lungs are clear. No evidence of pleural effusion or pneumothorax. IMPRESSION: No acute abnormality. 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 ACT 112: Negative or not required by law. Electronically signed by: Kristofer Henry M.D. 06/27/2022 5:09 PM Femur X-Ray 06/27/22 15:47 XR pelvis 1-2V routine, XR femur LT 2V routine CLINICAL HISTORY: fall hip pain TECHNIQUE: A single frontal view of the pelvis was obtained. 2 views of left femur were obtained. Comparison: Comparison is made to CT abdomen pelvis 06/02/2022 and hip radiograph 06/10/2018 FINDINGS: There is an acute fracture of the left proximal diaphysis around the prosthesis. 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 Soft tissue swelling is seen about the knee. Vascular calcifications are seen. IMPRESSION: Displaced fracture of the proximal left femur about the prosthesis. Associated soft tissue swelling is seen. ACT 112: Negative or not required by law. Electronically signed by: Kristofer Henry M.D. 06/27/2022 5:03 PM Pelvis X-Ray 06/27/22 15:47 XR pelvis 1-2V routine, XR femur LT 2V routine CLINICAL HISTORY: fall hip pain TECHNIQUE: A single frontal view of the pelvis was obtained. 2 views of left femur were obtained. Comparison: Comparison is made to CT abdomen pelvis 06/02/2022 and hip radiograph 06/10/2018 FINDINGS: There is an acute fracture of the left proximal diaphysis around the prosthesis. 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 Soft tissue swelling is seen about the knee. Vascular calcifications are seen. IMPRESSION: Displaced fracture of the proximal left femur about the prosthesis. Associated soft tissue swelling is seen. ACT 112: Negative or not required by law. Electronically signed by: Kristofer Henry M.D. 06/27/2022 5:03 PM Discharge Plan Visit Data Chief Complaint: Fall ED Provider: Heri Weber Discharge Problem: Periprosthetic hip fracture Patient Disposition: Admitted As Inpatient Discharge Instructions Interventions: ED Discharge Assessment Last Done: 06/27/22 20:05
[2022-06-27 16:14] LABS: Hematocrit (blood only) 36.3 % (40.1-51.0); Hemoglobin 12.6 g/dl (14.0-18.0); Mean Corpuscular Hemoglobin 32.7 pg (25.0-34.0); Mean Corpuscular Hgb Conc 34.7 g/dL (32.0-36.0); Mean Corpuscular Volume 94.3 fL (80.0-100.0); Mean Platelet Volume 11.5 fL (9.4-12.4); Platelet Count 63 K/uL (130-400); RDW Coefficient of Variation 14.7 % (11.5-14.5); RDW Standard Deviation 51.1 fL (36.4-46.3); Red Blood Count 3.85 M/uL (4.63-6.08); White Blood Count 29.49 K/ul (4.8-10.8)
[2022-06-27 16:32] LABS: BUN Creatinine Ratio 22.3 (10-20); Calcium 10.2 mg/dl (8.5-10.1); Creatinine Clr Calc Pharmacy 30.2 ml/min; Est GFR (African American) 53.6 ml/min; Est GFR (Non-African American) 46.2 ml/min; Potassium 3.7 mmol/L (3.5-5.1)
[2022-06-27 16:34] LABS: Troponin I High Sensitivity 39.2 pg/ml (0-20)
[2022-06-27 16:43] LABS: Basophils # (auto) 0.05 K/uL (0-0.2); Basophils % (auto) 0.2 %; Immature Granulocytes % (auto) 0.3 %; Lymphocytes # (auto) 18.44 K/uL (1.2-3.4); Lymphocytes % (auto) 62.5 %; Monocytes # (auto) 1.05 K/uL (0.24-0.82); Monocytes % (auto) 3.6 %; Neutrophils # (auto) 9.85 K/uL (1.4-6.5); Neutrophils % (auto) 33.4 %; Smudge Cells Present
--- NOTE | 2022-06-27 17:04 | XRay Report ---
XR pelvis 1-2V routine, XR femur LT 2V routine CLINICAL HISTORY: fall hip pain TECHNIQUE: A single frontal view of the pelvis was obtained. 2 views of left femur were obtained. Comparison: Comparison is made to CT abdomen pelvis 06/02/2022 and hip radiograph 06/10/2018 FINDINGS: There is an acute fracture of the left proximal diaphysis around the prosthesis. 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 Soft tissue swelling is seen about the knee. Vascular calcifications are se en. IMPRESSION: Displaced fracture of the proximal left femur about the prosthesis. Associated soft tissue swelling i s seen. ACT 112: Negative or not required by law. Electronically signed by: Kristofer Henry M.D. 06/27/2022 5:03 PM
--- NOTE | 2022-06-27 17:11 | XRay Report ---
XR chest 1V portable CLINICAL HISTORY: fall hip injury TECHNIQUE: Single frontal radiograph of the chest was obtained. Comparison: Comparison is made to chest radiograph 8222 FINDINGS: Aortic graft is seen. The cardiomediastinal silhouette is stable. The lungs are clear. No evidence of pleural effusion or pneumothorax. IMPRESSION: No acute abnormality. 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 ACT 112: Negative or not required by law. Electronically signed by: Kristofer Henry M.D. 06/27/2022 5:09 PM
[2022-06-27 17:40] LABS: Appearance Urine Clear (Clear); Bacteria Urine Automated Negative (Negative); Bilirubin Urine Negative (Negative); Blood Urine 2+ (Negative); Cast Urine Automated 0 /lpf (0-5); Color Urine Yellow; Glucose Urine UA Trace (Negative); Ketones Urine Negative (Negative); Leukocyte Esterase Urine Negative (Negative); Nitrite Urine Negative (Negative); Protein Urine 1+ (Negative); Specific Gravity Urine 1.012 (1.000-1.030); Urobilinogen Urine Negative (Negative); pH Urine 6.5 (4.5-7.5)
[2022-06-27] MEDS ORDERED: SODIUM CHLORIDE 0.9% 1000ML 1,000 ML IV ONE (17:53)
--- NOTE | 2022-06-27 18:42 | History & Physical Report ---
Date of Service June 27, 2022 Assessment & Plan (1) Periprosthetic hip fracture: Plan: Patient sustained this mechanical fall orthopedics will be consulted. Patient be medically optimized prior to surgery. Patient is revised cardiac risk index for preoperative risk is about 10% and his history of both coronary disease and cerebrovascular disease. However does not have any signs or symptoms of unstable angina or congestive heart failure currently I would recommend proceed to surgery but postoperatively have the patient in a monitored setting Orthopedic consultation with [facility] (2) CAD (coronary artery disease): Plan: Preoperatively will need to hold antiplatelet agents. He can continue his atorvastatin and losartan likely need to hold his valsartan on postoperative day 1 (3) CKD (chronic kidney disease): Plan: She has chronic kidney disease stage III based upon his age appropriate medical dosing would be recommended (4) BPH loc w/o ur obs/LUTS: Plan: Patient with recent phimosis surgery has an indwelling Bob catheter now due to hip fracture he has some hematuria we will check a urine culture this may be traumatic (5) Status post thoracic aortic aneurysm repair: Plan: Patient is secondary risk prevention with Plavix and atorvastatin Plavix is held preoperatively (6) CVA (cerebral vascular accident): (7) Altered mental state: Plan: Worsening confusion despite no opiates since 06/30 Reportedly no prior history of dementia Only sedating medication was melatonin given last night Refused medications this morning CT head - unremarkable for for acute changes - moderate to advanced subcortical and periventricular microangiopathic disease CXR - possible right > left consolidation, will have speech evaluate for aspiration, if worsening will place on antibiotics however WBC appears to be improving and suspect just aspiration pneumonitis KUB - significant fecal impaction, start Bisacodyl supp and Miralax 17g TID, suspect this is main contributing factor towards altered mental state (8) Delirium: Plan: as above Delirium precautions (9) Acute on chronic anemia: Plan: Iron def. anemia Postoperative hemoglobin drop to 6.7 s/p 2 units packed RBCs, 3 platelets -> Hgb 8.9 Transferrin sats: 8.5% Platelet count 70 Plan DVT prevention Heparin to be undertaken until the patient can have his surgery History of Present Illness Primary Care Provider: Christopher Kearns MD 86-year-old male who typically lives home alone. He had a fall sustaining a periprosthetic left hip fracture. Patient has medical problems including CLL, he has vascular disease having had a endovascular aortic repair and a carotid endarterectomy previous coronary disease and strokes.. Despite that his general physical health besides his gait imbalance has been relatively stable. He has known decreased perfusion to his lower extremities and typically his cold feet. There is a mechanical fall today was not preceded by dizziness or lightheadedness. He has had no recent chest pain or pressure. He said no orthopnea and can relatively lay flat. He is in no bruising or bleeding other than what sustained from his multiple falls. He most recently underwent surgery this past summer, March 2022, for an inguinal hernia repair and an adult circumcision due to phimosis Allergies Allergy/AdvReac Type Severity Reaction Status Date / Time KVNG Inhibitors AdvReac Mild Cough Verified 06/10/22 14:43 codeine AdvReac Mild Nausea Verified 06/10/22 14:43 Home Medications Medication Instructions Recorded Confirmed Type calcium carbonate 600 mg-vitamin 1 tab PO BID 05/16/19 06/10/22 History D3 10 mcg (400 unit) tablet (Calcium 600 + D(3)) cholecalciferol (vitamin D3) 50 2,000 unit PO QAM 05/16/19 06/10/22 History mcg (2,000 unit) tablet (Vitamin D3) acetaminophen 500 mg capsule 500 mg PO Q6H PRN Pain 07/23/19 06/10/22 History fluticasone propionate 50 2 spray intranasal DAILY PRN 07/21/20 06/10/22 History mcg/actuation nasal Allergic Symptoms spray,suspension atorvastatin 40 mg tablet 40 mg PO HS #90 tabs 10/11/21 06/10/22 Rx finasteride 5 mg tablet 5 mg PO QAM 01/26/22 06/10/22 History tamsulosin 0.4 mg capsule 0.4 mg PO QAM #90 caps 02/07/22 06/10/22 Rx valsartan 80 mg tablet 80 mg PO QAM #30 tabs 03/08/22 06/10/22 Rx clotrimazole-betamethasone 1 1 applic topical TID PRN Swelling 03/21/22 06/10/22 Rx %-0.05 % topical cream #45 grams clopidogrel 75 mg tablet (Plavix) 75 mg PO DAILY #90 tabs 05/03/22 06/10/22 Rx Past Med/Surg History Medical History Abscess Aortic aneurysm - S/p TEVAR (2016) - Aortic stent graft seen per 11/15/[address] scan - Per Chest CT 01/14/21= 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 Evidence for stent repair of the descending thoracic aorta. 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 Bifascicular block Chronic, dating back to at least 08/2018 per chart review Bilateral inguinal hernia BPH (benign prostatic hyperplasia) WITH URINARY LEAKAGE CAD (coronary artery disease) Nonobstructive per cardio records (pt denies cardiac cath per 01/18/22 cardio note_ Cardiomyopathy EF 60-65% per 06/2021 ECHO Carotid artery disease S/p left carotid endarterectomy (2013) Per neck CTA 10/23/20= No significant carotid artery disease CKD (chronic kidney disease) CLL (chronic lymphocytic leukemia) Hearing deficit History of seizure Mallie r/t hypoglycemic episodes (last ) History of stroke Initial stroke 2007- felt secondary to carotid disease (s/p left CEA) Possible second CVA shortly after first CVA Per records- CVA 10/23/20 On Plavix No residual effects Hyperlipidemia Hypertension Hypertension Left thigh pain Osteoporosis Right inguinal hernia Right inguinal hernia Surgical History H/O right inguinal hernia repair (08/03/20) Open right inguinal hernia repair. Dr. Wright 08/03/2020 H/O thoracic aortic aneurysm repair Hip fracture requiring operative repair LEFT HIP History of carotid endarterectomy LEFT History of cataract surgery RT/LEFT History of hernia surgery LEFT INGUINAL 1980 History of left hip replacement History of right hip replacement History of tonsillectomy 1944 Hx of nasal polypectomy Nausea and vomiting after administration of anesthetic agent S/P left inguinal hernia repair (03/21/22) Recurrent left inguinal hernia repair. Dr. Wright Status post incision and drainage (06/26/20) incision and drainage in the office of the left posterior thigh abscess 06/26/20 Dr. Wright in office Family History Brother Colorectal cancer Stroke Family history of diabetes mellitus Father Heart disease Hypertension Stroke Other No family history of adverse response to anesthesia Denies family history of Ovarian cancer Prostate cancer Myocardial infarction Breast cancer Social History Smoking Status: Former smoker Tobacco Type: Cigarettes packs per day: 0.75; Years Smoked: 50; Cigarettes Per Day: 12 YEARS AGO; Smoking End Date: 2009; Second Hand Exposure: No; Tobacco Cessation Education Requested by Patient: No Hx Alcohol Use: Yes Alcohol type: beer and wine Alcohol Intake Frequency: 4 or More x per/Week Alcohol Intake Frequency Comment: 14 Hx Substance Use: No Preferred Language: Kyr[place] Communication Ability: Effective Communication Ability Comment: Pt. [place] bilaterally Visual Impairment: No Limitations Hearing Ability: Use of Hearing Aid Support Services Rep Required: No Beliefs That Will Affect Care: None marital status: / Current Living Situation: Alone current occupational status: retired How many Children do You have: 0 Feels Safe at Home: Yes Safety Concerns: Feels Safe At This Time Childhood Exposure to Second-Hand Smoke: Yes Dental Care, Regularly: Yes Physical Activity Frequency: 1-2 Times per Week Seatbelt Use: always Sunscreen Use: No Assistive Devices: Glasses and Hearing Aid - Bilateral Assistive Devices Comment: Assistive devices at bedside Review of Systems Review of Systems: Mild distress and fatigue no headache, no visual changes no speech or swallowing issues no chest pain, pressure or palpitations no shortness of breath, cough or wheezes no abdominal pain, nausea or vomiting, diarrhea or constipation Immediate dysuria or hematuria. But he did have hematuria after Bob catheter was placed unsure whether was traumatic or from his fall Left hip pain with external rotation and shortening of his left leg no back pain, CVA tenderness or radicular pain Bruises on his left shoulder forearms and anterior shins no focal signs of weakness or numbness or patient is extremely hard of hearing Physical Exam Physical Exam: The patient appeared thin and underweight with a BMI of 18 Vital signs as documented. Head exam is normocephalic atraumatic Neck is without JVD, carotid endarterectomy scars on his right neck, no thyromegaly, or carotid bruits. Lungs are clear to auscultation, no focal loss of breath sounds Cardiac exam, Rhythm is regular.. Stock murmur is heard Abdominal exam reveals normal bowel sounds, soft non tender, no masses Extremities are nonedematous and both her shins are bruised left leg is externally rotated and shortened Neurologic exam is alert and oriented, no focal loss of strength or sensation with exception of hearing Skin is with multiple bruises Psychologically is without concerns for anxiety or depression.. Results & Data Results & Data ([facility]) Vital Signs (Past 12 Hours) Vital Signs Temp Pulse Resp BP Pulse Ox O2 Del Method 06/27/22 17:07 125/77 06/27/22 17:07 99 H 22 97 06/27/22 17:00 107 H 20 96 06/27/22 15:05 16 06/27/22 16:30 104 H 24 143/108 H 97 06/27/22 16:05 105 H 21 96 06/27/22 15:20 98.8 F 77 19 180/104 H 98 Room Air Diagnostic Findings Chest X-Ray 06/27/22 15:47 XR chest 1V portable CLINICAL HISTORY: fall hip injury TECHNIQUE: Single frontal radiograph of the chest was obtained. Comparison: Comparison is made to chest radiograph 8222 FINDINGS: Aortic graft is seen. The cardiomediastinal silhouette is stable. The lungs are clear. No evidence of pleural effusion or pneumothorax. IMPRESSION: No acute abnormality. 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 ACT 112: Negative or not required by law. Electronically signed by: Kristofer Henry M.D. 06/27/2022 5:09 PM Femur X-Ray 06/27/22 15:47 XR pelvis 1-2V routine, XR femur LT 2V routine CLINICAL HISTORY: fall hip pain TECHNIQUE: A single frontal view of the pelvis was obtained. 2 views of left femur were obtained. Comparison: Comparison is made to CT abdomen pelvis 06/02/2022 and hip radiograph 06/10/2018 FINDINGS: There is an acute fracture of the left proximal diaphysis around the prosthesis. 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 Soft tissue swelling is seen about the knee. Vascular calcifications are seen. IMPRESSION: Displaced fracture of the proximal left femur about the prosthesis. Associated soft tissue swelling is seen. Electronically signed by: Kristofer Henry M.D. 06/27/2022 5:03 PM Pelvis X-Ray 06/27/22 15:47 XR pelvis 1-2V routine, XR femur LT 2V routine CLINICAL HISTORY: fall hip pain TECHNIQUE: A single frontal view of the pelvis was obtained. 2 views of left femur were obtained. Comparison: Comparison is made to CT abdomen pelvis 06/02/2022 and hip radiograph 06/10/2018 FINDINGS: There is an acute fracture of the left proximal diaphysis around the prosthesis. 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 Soft tissue swelling is seen about the knee. Vascular calcifications are seen. IMPRESSION: Displaced fracture of the proximal left femur about the prosthesis. Associated soft tissue swelling is seen. Electronically signed by: Kristofer Henry M.D. 06/27/2022 5:03 PM PG Care Time/CCT Total # of Minutes Spent Total Time Spent with Patient: Total time spent is greater than 50% in coordination of care (as documented) at patient's floor/unit and/or counseling patient: Coding Level of Care Code 94770 Initial Inpt Care Lvl 3 Diagnoses Periprosthetic hip fracture M97.8XXA; Z96.649 CAD (coronary artery disease) I25.10 CKD (chronic kidney disease) N18.9 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 Status post thoracic aortic aneurysm repair Z98.890; Z86.79 CVA (cerebral vascular accident) I63.9 CVA mechanism: unspecified Altered mental state R41.82 Delirium R41.0 Acute on chronic anemia D64.9 (1) CVA (cerebral vascular accident) CVA mechanism: unspecified Qualified Code(s): I63.9 - Cerebral infarction, unspecified
--- NOTE | 2022-06-27 19:38 | Communication Note ---
Date of Service: June 27, 2022 I reviewed the x-rays which show a Periprosthetic fracture of the proximal femur and discussed with U surgeon Dr. Arroyo who is willing to fix surgically this Monday if medically cleared and stable. Will likely need a revision to longstem prosthesis and a cable
[2022-06-27] MEDS ORDERED: ALUMINUM/MAGNESIUM SUSP 30 ML UDC PO PRN (20:50)
[2022-06-27] MEDS ORDERED: ONDANSETRON INJ 2 MG/ML 2 ML VIAL IV PRN (20:50)
[2022-06-27] MEDS ORDERED: POLYETHYLENE (MIRALAX) 17 GM PACK PO PRN (20:50)
[2022-06-27] MEDS ORDERED: FLUTICASONE PROPIONATE NA SPR 16 GM BTL PRN (20:50)
[2022-06-27] MEDS ORDERED: MoRPHine SULFATE 4 MG/ML 1 ML CARP\\VIAL IV PRN (20:50)
[2022-06-27] MEDS: SODIUM CHLORIDE 0.9% 1000ML 1,000 ML IV SCH (20:52)
[2022-06-27] MEDS: CALCIUM 600MG + VIT D 400 IU TAB PO SCH (21:42)
[2022-06-27] MEDS: ATORVASTATIN 40 MG TAB PO SCH (21:42)
[2022-06-27] MEDS: HEPARIN SOD 5,000 UNIT/0.5 ML VIAL SQ SCH (21:43)
[2022-06-27] MEDS: ACETAMINOPHEN 325 MG TAB PO PRN (23:08)
[2022-06-28 07:12] LABS: Hematocrit (blood only) 29.1 % (40.1-51.0); Hemoglobin 9.8 g/dl (14.0-18.0); Mean Corpuscular Hemoglobin 32.2 pg (25.0-34.0); Mean Corpuscular Hgb Conc 33.7 g/dL (32.0-36.0); Mean Corpuscular Volume 95.7 fL (80.0-100.0); Platelet Count 45 K/uL (130-400); RDW Coefficient of Variation 14.6 % (11.5-14.5); RDW Standard Deviation 50.9 fL (36.4-46.3); Red Blood Count 3.04 M/uL (4.63-6.08); White Blood Count 17.82 K/ul (4.8-10.8)
[2022-06-28 09:31] LABS: Calcium 9.1 mg/dl (8.5-10.1); Potassium 3.6 mmol/L (3.5-5.1)
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
[2022-06-28] MEDS: CALCIUM 600MG + VIT D 400 IU TAB PO SCH ×2 (09:38→21:41)
[2022-06-28] MEDS: HEPARIN SOD 5,000 UNIT/0.5 ML VIAL SQ SCH ×2 (09:38→21:44)
[2022-06-28] MEDS: CHOLECALCIFEROL 1,000 UNITS 25 MCG TAB PO SCH (09:38)
[2022-06-28] MEDS: FINASTERIDE 5 MG TAB PO SCH (09:38)
[2022-06-28] MEDS: TAMSULOSIN HCL 0.4 MG CAP PO SCH (09:40)
[2022-06-28] MEDS: VALSARTAN 80 MG TAB PO SCH (09:40)
[2022-06-28] MEDS: SODIUM CHLORIDE 0.9% 1000ML 1,000 ML IV SCH ×2 (09:41→21:40)
[2022-06-28 09:44] LABS: BUN Creatinine Ratio 24.3 (10-20); Creatinine Clr Calc Pharmacy 31.9 ml/min; Est GFR (Non-African American) 47.4 ml/min
[2022-06-28] MEDS: MoRPHine SULFATE 2 MG/ML CARP IV PRN (12:40)
[2022-06-28] MEDS: ACETAMINOPHEN 325 MG TAB PO PRN ×2 (13:36→21:41)
--- NOTE | 2022-06-28 17:44 | Anesthesiology Consultation ---
Date of Service June 28, 2022 Assessment & Plan Chart Review Chart Review: Acceptable Risk for Surgery and Patient NOT seen in Pre Admission Testing Consults Requested none ASA ASA4 Proposed Anesthesia Anesthesia Type: General Anesthesia Line Insertion: Arterial line History Surgery Operation Date: 06/29/22 07:00 Proposed Procedures p Left Hip Hemiarthroplasty Revision - Daryl Arroyo, DO Height/Weight Height: 5 ft 7 in Weight: 55.7 kg Allergies Allergy/AdvReac Type Severity Reaction Status Date / Time KVNG Inhibitors AdvReac Mild Cough Verified 06/10/22 14:43 codeine AdvReac Mild Nausea Verified 06/10/22 14:43 Medications Home Medications Medication Instructions Recorded Confirmed Last Taken calcium carbonate 600 mg-vitamin 1 tab PO BID 05/16/19 06/10/22 03/20/22 23:30 D3 10 mcg (400 unit) tablet (Calcium 600 + D(3)) cholecalciferol (vitamin D3) 50 2,000 unit PO QAM 05/16/19 06/10/22 03/20/22 10:00 mcg (2,000 unit) tablet (Vitamin D3) acetaminophen 500 mg capsule 500 mg PO Q6H PRN Pain 07/23/19 06/10/22 03/20/22 23:55 fluticasone propionate 50 2 spray intranasal DAILY PRN 07/21/20 06/10/22 08/02/20 08:30 mcg/actuation nasal Allergic Symptoms spray,suspension atorvastatin 40 mg tablet 40 mg PO HS #90 tabs 10/11/21 06/10/22 03/20/22 23:30 finasteride 5 mg tablet 5 mg PO QAM 01/26/22 06/10/22 03/20/22 10:00 tamsulosin 0.4 mg capsule 0.4 mg PO QAM #90 caps 02/07/22 06/10/22 03/21/22 05:00 valsartan 80 mg tablet 80 mg PO QAM #30 tabs 03/08/22 06/10/22 03/21/22 05:00 clotrimazole-betamethasone 1 1 applic topical TID PRN Swelling 03/21/22 06/10/22 Unknown %-0.05 % topical cream #45 grams clopidogrel 75 mg tablet (Plavix) 75 mg PO DAILY #90 tabs 05/03/22 06/10/22 Unknown Active Medications Generic Name Dose Route Start Last Admin Trade Name Freq PRN Reason Stop Dose Admin Acetaminophen 650 mg 06/27/22 20:50 06/28/22 13:36 Acetaminophen 325 Mg Tab PO 07/27/22 20:49 650 mg Q4H PRN Administration Pain or Fever Atorvastatin Calcium 40 mg 06/27/22 21:00 06/27/22 21:42 Atorvastatin 40 Mg Tab PO 07/27/22 20:59 40 mg HS JORGE Administration Finasteride 5 mg 06/28/22 09:00 06/28/22 09:38 Finasteride 5 Mg Tab PO 07/28/22 08:59 5 mg QAM JORGE Administration Heparin Sodium (Porcine) 5,000 units 06/27/22 21:00 06/28/22 09:38 Heparin Sod 5,000 Unit/0.5 Ml Vial SQ 07/27/22 20:59 5,000 units Q12 JORGE Administration Sodium Chloride 1,000 mls @ 80 mls/hr 06/27/22 20:50 06/28/22 09:41 Nss 1000ml IV 07/27/22 20:49 80 mls/hr .[id number] JORGE Administration Morphine Sulfate 2 mg 06/27/22 20:50 06/28/22 12:40 Morphine Sulfate 2 Mg/Ml Carp IV 07/11/22 20:49 2 mg Q4 PRN Administration Pain Scale: 2,3,4,5,6 Multivitamins/Minerals 1 tab 06/27/22 21:00 06/28/22 09:38 Calcium 600mg + Vit D 400 Iu Tab PO 07/27/22 20:59 1 tab BID JORGE Administration Tamsulosin HCl 0.4 mg 06/28/22 09:00 06/28/22 09:40 Tamsulosin Hcl 0.4 Mg Cap PO 07/28/22 08:59 0.4 mg QAM JORGE Administration Valsartan 80 mg 06/28/22 09:00 06/28/22 09:40 Valsartan 80 Mg Tab PO 07/28/22 08:59 80 mg QAM JORGE Administration Vitamin D 2,000 units 06/28/22 09:00 06/28/22 09:38 Cholecalciferol 1,000 Units 25 Mcg Tab PO 07/28/22 08:59 2,000 units QAM JORGE Administration Past Medical History Medical History Abscess Aortic aneurysm - S/p TEVAR (2016) - Aortic stent graft seen per 11/15/[address] scan - Per Chest CT 01/14/21= 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 Evidence for stent repair of the descending thoracic aorta. 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 Bifascicular block Chronic, dating back to at least 08/2018 per chart review Bilateral inguinal hernia BPH (benign prostatic hyperplasia) WITH URINARY LEAKAGE CAD (coronary artery disease) Nonobstructive per cardio records (pt denies cardiac cath per 01/18/22 cardio note_ Cardiomyopathy EF 60-65% per 06/2021 ECHO Carotid artery disease S/p left carotid endarterectomy (2013) Per neck CTA 10/23/20= No significant carotid artery disease CKD (chronic kidney disease) CLL (chronic lymphocytic leukemia) Hearing deficit History of seizure [place] r/t hypoglycemic episodes (last ) History of stroke Initial stroke 2007- felt secondary to carotid disease (s/p left CEA) Possible second CVA shortly after first CVA Per records- CVA 10/23/20 On Plavix No residual effects Hyperlipidemia Hypertension Hypertension Left thigh pain Osteoporosis Right inguinal hernia Right inguinal hernia Exercise / Class Metabolic Activity III < 4 Walking/Shop/Light housework Past Family History Family History Brother Colorectal cancer Stroke Family history of diabetes mellitus Father Heart disease Hypertension Stroke Other No family history of adverse response to anesthesia Denies family history of Ovarian cancer Prostate cancer Myocardial infarction Breast cancer Past Surgical History Surgical History H/O right inguinal hernia repair (08/03/20) Open right inguinal hernia repair. Dr. Wright 08/03/2020 H/O thoracic aortic aneurysm repair Hip fracture requiring operative repair LEFT HIP History of carotid endarterectomy LEFT History of cataract surgery RT/LEFT History of hernia surgery LEFT INGUINAL 1980 History of left hip replacement History of right hip replacement History of tonsillectomy 194 Hx of nasal polypectomy Nausea and vomiting after administration of anesthetic agent S/P left inguinal hernia repair (03/21/22) Recurrent left inguinal hernia repair. Dr. Wright Status post incision and drainage (06/26/20) incision and drainage in the office of the left posterior thigh abscess 06/26/20 Dr. Wright in office Past Anesthesia History No Hx of Anesthesia Complications and No Family Hx of Anesthesia Complications History of PONV No Hx of PONV and No Hx of Motion Sickness Social History Smoking Status: Former smoker tobacco type: cigarettes and pipe Smoking cigarettes per day: 12 YEARS AGO Smoking End Date: 2009 Hx Alcohol Use: Yes Alcohol type: beer and wine alcohol intake frequency: 0-2 drinks per day Hx Substance Use: No substance use type: does not use Physical Exam Vital Signs Last Vital Signs Temp 36.9 C 06/28/22 14:45 Pulse 73 06/28/22 15:37 Resp 16 06/28/22 14:45 BP 122/62 06/28/22 14:45 Pulse Ox 96 06/28/22 14:45 O2 Del Method 06/28/22 14:45 Testing Laboratory Results 06/28/22 06:43 06/28/22 06:43 Urine Color Yellow 06/27/22 17:05 Urine Appearance Clear (Clear) 06/27/22 17:05 Urine pH 6.5 (4.5-7.5) 06/27/22 17:05 Ur Specific [place] 1.012 (1.000-1.030) 06/27/22 17:05 Urine Protein 1+ (Negative) H 06/27/22 17:05 Urine Glucose (UA) Trace (Negative) H 06/27/22 17:05 Urine Ketones Negative (Negative) 06/27/22 17:05 Urine Nitrite Negative (Negative) 06/27/22 17:05 Ur Leukocyte Esterase Negative (Negative) 06/27/22 17:05 Urine WBC (Auto) 1-5 /hpf (0-5) 06/27/22 17:05 Urine RBC (Auto) 10-30 /hpf (0-4) H 06/27/22 17:05 U Hyaline Cast (Auto) 0 /lpf (0-5) 06/27/22 17:05 U Epithel Cells (Auto) 5-10 /lpf (0-5) H 06/27/22 17:05 Urine Bacteria (Auto) Negative (Negative) 06/27/22 17:05 Electrocardiogram Date: 06/27/22 Findings: + NSR @ (at 97;LAFB) and + RBBB Chest X-Ray Date: 06/27/22 Findings: + NAD aortic stent graft Echocardiogram Date: 06/09/21 EF: 60% LV Function: normal RWMA: + none Other Findings: + LVH and + diastolic dysfunction (grade 1) Valvular Disease: + no significant valvular disease Other Testing 05/07/2015-Carotid U/S-atherosclerotic plaque , but no H/D sig. stenoses
--- NOTE | 2022-06-28 21:29 | Hospitalist Progress Note ---
Date of Service June 28, 2022 Assessment & Plan (1) Periprosthetic hip fracture: Plan: Patient sustained this mechanical fall orthopedics will be consulted. Patient be medically optimized prior to surgery. Patient is revised cardiac risk index for preoperative risk is about 10% and his history of both coronary disease and cerebrovascular disease. However does not have any signs or symptoms of unstable angina or congestive heart failure currently I would recommend proceed to surgery but postoperatively have the patient in a monitored setting Orthopedic consultation with [facility]: plan for surgical repair on 06/29 (2) CAD (coronary artery disease): Plan: Preoperatively will need to hold antiplatelet agents. He can continue his atorvastatin and losartan likely need to hold his valsartan on postoperative day 1 (3) CKD (chronic kidney disease): Plan: She has chronic kidney disease stage III based upon his age appropriate medical dosing would be recommended (4) BPH loc w/o ur obs/LUTS: Plan: Patient with recent phimosis surgery has an indwelling Bob catheter now due to hip fracture he has some hematuria we will check a urine culture this may be traumatic (5) Status post thoracic aortic aneurysm repair: Plan: Patient is secondary risk prevention with Plavix and atorvastatin Plavix is held preoperatively (6) CVA (cerebral vascular accident): Plan DVT prevention Heparin to be undertaken until the patient can have his surgery Admission and Anticipated Discharge Date Admission Date: June 27, 2022 Subjective 86 yo male reports no new symptoms. Review of Systems Review of Systems: All systems reviewed & are unremarkable except as noted in HPI & below Physical Exam Physical Exam: The patient appeared thin and underweight with a BMI of 18 Vital signs as documented. Head exam is normocephalic atraumatic Neck is without JVD, carotid endarterectomy scars on his right neck, no thyromegaly, or carotid bruits. Lungs are clear to auscultation, no focal loss of breath sounds Cardiac exam, Rhythm is regular.. Stock murmur is heard Abdominal exam reveals normal bowel sounds, soft non tender, no masses Extremities are nonedematous and both her shins are bruised left leg is externally rotated and shortened Neurologic exam is alert and oriented, no focal loss of strength or sensation with exception of hearing Skin is with multiple bruises Psychologically is without concerns for anxiety or depression.. Results & Data Results & Data ([facility]) Vital Signs (Past 12 Hours) Vital Signs Temp Pulse Pulse Resp BP Pulse Ox O2 Del Method 06/28/22 19:30 36.7 C 79 20 126/49 L 96 Room Air 06/28/22 15:37 73 06/28/22 14:45 36.9 C 71 16 122/62 96 Room Air 06/28/22 11:42 36.9 C 89 18 150/65 H 93 Room Air 06/28/22 10:28 Room Air PG Care Time/CCT Total # of Minutes Spent Total Time Spent with Patient: Total time spent is greater than 50% in coordination of care (as documented) at patient's floor/unit and/or counseling patient: Coding Level of Care Code 20068 Subseq Hosp Care Lvl 2 Diagnoses Periprosthetic hip fracture M97.8XXA; Z96.649 Encounter type: initial encounter CAD (coronary artery disease) I25.10 CKD (chronic kidney disease) N18.9 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 Status post thoracic aortic aneurysm repair Z98.890; Z86.79 CVA (cerebral vascular accident) I63.9 CVA mechanism: unspecified Time Spent (min) 25 (1) Periprosthetic hip fracture Encounter type: initial encounter Qualified Code(s): M97.8XXA - Periprosthetic fracture around other internal prosthetic joint, initial encounter; Z96.649 - Presence of unspecified artificial hip joint (2) CVA (cerebral vascular accident) CVA mechanism: unspecified Qualified Code(s): I63.9 - Cerebral infarction, unspecified
[2022-06-28] MEDS: ATORVASTATIN 40 MG TAB PO SCH (21:41)
[2022-06-28] MEDS: MELATONIN 3 MG TAB PO PRN (21:53)
--- NOTE | 2022-06-28 22:39 | Electrocardiogram Report ---
Test Reason : Blood Pressure : / mmHG Vent. Rate : 097 BPM Atrial Rate : 097 BPM P-R Int : 198 ms QRS Dur : 136 ms QT Int : 408 ms P-R-T Axes : 077 -64 034 degrees QTc Int : 518 ms Poor data quality, interpretation may be adversely affected Normal sinus rhythm Right bundle branch block Left anterior fascicular block Bifascicular block Inferior infarct (cited on or before 27-JUN-2022) Abnormal ECG When compared with ECG of 03-MAY-2022 13:11, Vent. rate has increased BY 33 BPM (RBBB and left anterior fascicular block) is now Present Questionable change in initial forces of Inferior leads Confirmed by Qamar Curry ([id number]) on 06/28/2022 10:38:33 PM Referred By: REFERRED SELF Confirmed By:Qamar Curry
[2022-06-29 06:40] LABS: Hematocrit (blood only) 28.3 % (40.1-51.0); Hemoglobin 9.7 g/dl (14.0-18.0); Mean Corpuscular Hemoglobin 32.9 pg (25.0-34.0); Mean Corpuscular Hgb Conc 34.3 g/dL (32.0-36.0); Mean Corpuscular Volume 95.9 fL (80.0-100.0); Mean Platelet Volume 11.8 fL (9.4-12.4); Platelet Count 40 K/uL (130-400); RDW Coefficient of Variation 14.6 % (11.5-14.5); RDW Standard Deviation 50.7 fL (36.4-46.3); Red Blood Count 2.95 M/uL (4.63-6.08); White Blood Count 16.33 K/ul (4.8-10.8)
[2022-06-29 07:33] LABS: BUN Creatinine Ratio 21.8 (10-20); Calcium 9.2 mg/dl (8.5-10.1); Creatinine Clr Calc Pharmacy 39.6 ml/min; Est GFR (African American) 71.1 ml/min; Est GFR (Non-African American) 61.3 ml/min; Potassium 3.3 mmol/L (3.5-5.1)
[2022-06-29] MEDS: TAMSULOSIN HCL 0.4 MG CAP PO SCH (07:39)
[2022-06-29] MEDS: VALSARTAN 80 MG TAB PO SCH (07:39)
[2022-06-29] MEDS: CALCIUM 600MG + VIT D 400 IU TAB PO SCH ×2 (07:40→20:58)
[2022-06-29] MEDS: FINASTERIDE 5 MG TAB PO SCH (07:40)
[2022-06-29] MEDS: CHOLECALCIFEROL 1,000 UNITS 25 MCG TAB PO SCH (07:40)
[2022-06-29] MEDS: MoRPHine SULFATE 2 MG/ML CARP IV PRN ×2 (07:40→20:59)
[2022-06-29] MEDS ORDERED: hydrALAZINE HCL 20 MG/ML VIAL IV ONE (09:50)
[2022-06-29] MEDS: SODIUM CHLORIDE 0.9% 1000ML 1,000 ML IV SCH (10:33)
[2022-06-29] MEDS ORDERED: DEXTROSE 50% 50 ML SYRINGE IV ONE (11:15)
[2022-06-29] MEDS: HEPARIN SOD 5,000 UNIT/0.5 ML VIAL SQ SCH ×2 (11:42→22:52)
--- NOTE | 2022-06-29 16:30 | Orthopedic Progress Note ---
Date of Service June 29, 2022 Assessment & Plan (1) Periprosthetic hip fracture: Plan: Left periprosthetic femur fracture Planning for revision bipolar hemiarthroplasty Thrombocytopenia - Discussed with hospitalist service and anesthesia. Consult Heme/Onc. Plan for platelet transfusion. If Platelets increased, we will plan for OR tomorrow at 2pm Diet ordered for this evening. NPO after midnight. Admission and Anticipated Discharge Date Admission Date: June 27, 2022 Subjective Patient resting comfortably. Pain controlled. Controlled currently. Noted that patient's platelet count is dropped from 65 into the 40s. He was discussed with the hospitalist service and as well as anesthesia. Surgery will be held at this time due to his low platelet count. Discussed with the patient. Plans but was mildly upset secondary to having to be n.p.o. status etc. post that we would order him a dinner this evenng. Physical Exam Physical Exam: No changes in physical exam at this time. Results & Data ([facility]) Vital Signs (Past 12 Hours) Vital Signs Temp Pulse Pulse Resp BP BP Pulse Ox 06/29/22 16:06 36.4 C L 75 20 180/78 H 96 06/29/22 15:36 37 C 74 20 168/77 H 95 06/29/22 15:21 36.7 C 76 18 170/77 H 95 06/29/22 15:04 36.5 C 74 18 166/75 H 97 06/29/22 14:58 75 06/29/22 11:51 36.8 C 72 20 172/69 H 96 06/29/22 11:32 36.6 C 61 18 145/70 H 95 06/29/22 10:45 189/96 H 06/29/22 08:47 72 20 184/82 H 96 06/29/22 08:13 36.9 C 70 18 205/76 H 94 06/29/22 07:10 74 O2 Del Method 06/29/22 16:06 06/29/22 15:36 06/29/22 15:21 06/29/22 15:04 06/29/22 14:58 06/29/22 11:51 Room Air 06/29/22 11:32 06/29/22 10:45 06/29/22 08:47 Room Air 06/29/22 08:13 06/29/22 07:10 (1) Periprosthetic hip fracture Encounter type: initial encounter Qualified Code(s): M97.8XXA - Periprosthetic fracture around other internal prosthetic joint, initial encounter; Z96.649 - Presence of unspecified artificial hip joint
[2022-06-29] MEDS: ATORVASTATIN 40 MG TAB PO SCH (20:58)
[2022-06-29] MEDS: MELATONIN 3 MG TAB PO PRN (20:58)
--- NOTE | 2022-06-29 23:46 | Hospitalist Progress Note ---
Date of Service June 29, 2022 Assessment & Plan (1) Periprosthetic hip fracture: Plan: Patient sustained this mechanical fall orthopedics will be consulted. Patient be medically optimized prior to surgery. Patient is revised cardiac risk index for preoperative risk is about 10% and his history of both coronary disease and cerebrovascular disease. However does not have any signs or symptoms of unstable angina or congestive heart failure currently I would recommend proceed to surgery but postoperatively have the patient in a monitored setting Informed consent for transfusion obtained Orthopedic consultation with [facility]: plan for surgical repair on 06/29, this was delayed due to need for hematology consult, recommended by Anesthesia. Patient will obtain a platelet transfusion of 1 unit in PM on 06/29. Hospital will only have one unit of platelets available overnight. will hold this and called blood bank to inform not to transfuse this (initially ordered to transfuse 2 units) Patient has CLL, but no ITP. platelet count should hold. will reassess platelet count in AM d/w ortho (2) CAD (coronary artery disease): Plan: Preoperatively will need to hold antiplatelet agents. He can continue his atorvastatin and losartan likely need to hold his valsartan on postoperative day 1 (3) CKD (chronic kidney disease): Plan: He has chronic kidney disease stage III based upon his age appropriate medical dosing would be recommended (4) BPH loc w/o ur obs/LUTS: Plan: Patient with recent phimosis surgery has an indwelling Bob catheter now due to hip fracture he has some hematuria we will check a urine culture this may be traumatic (5) Status post thoracic aortic aneurysm repair: Plan: Patient is secondary risk prevention with Plavix and atorvastatin Plavix is held preoperatively (6) CVA (cerebral vascular accident): Plan DVT prevention Heparin to be undertaken until the patient can have his surgery Admission and Anticipated Discharge Date Admission Date: June 27, 2022 Subjective Patient is awaiting his surgery. No new symptoms, family at bedside, show concern over platelet count and bleeding. Review of Systems Review of Systems: All systems reviewed & are unremarkable except as noted in HPI & below Physical Exam Physical Exam: The patient appeared thin and underweight with a BMI of 18 Vital signs as documented. Head exam is normocephalic atraumatic Neck is without JVD, carotid endarterectomy scars on his right neck, no thyromegaly, or carotid bruits. Lungs are clear to auscultation, no focal loss of breath sounds Cardiac exam, Rhythm is regular.. Stock murmur is heard Abdominal exam reveals normal bowel sounds, soft non tender, no masses Extremities are nonedematous and both her shins are bruised left leg is externally rotated and shortened Neurologic exam is alert and oriented, no focal loss of strength or sensation with exception of hearing Skin is with multiple bruises Psychologically is without concerns for anxiety or depression.. Results & Data Results & Data ([facility]) Vital Signs (Past 12 Hours) Vital Signs Temp Pulse Pulse Resp BP BP Pulse Ox 06/29/22 23:09 36.7 C 74 18 163/73 H 96 06/29/22 23:20 80 06/29/22 19:30 36.8 C 87 22 135/58 L 95 06/29/22 18:35 96 H 14 147/62 H 94 06/29/22 18:32 96 H 147/62 H 94 06/29/22 17:06 36.9 C 93 H 18 165/54 H 94 06/29/22 16:06 36.4 C L 75 20 180/78 H 96 06/29/22 15:36 37 C 74 20 168/77 H 95 06/29/22 15:21 36.7 C 76 18 170/77 H 95 06/29/22 15:04 36.5 C 74 18 166/75 H 97 06/29/22 14:58 75 06/29/22 11:51 36.8 C 72 20 172/69 H 96 O2 Del Method 06/29/22 23:09 Room Air 06/29/22 23:20 06/29/22 19:30 Room Air 06/29/22 18:35 06/29/22 18:32 06/29/22 17:06 06/29/22 16:06 06/29/22 15:36 06/29/22 15:21 06/29/22 15:04 06/29/22 14:58 06/29/22 11:51 Room Air PG Care Time/CCT Total # of Minutes Spent Total Time Spent with Patient: Total time spent is greater than 50% in coordination of care (as documented) at patient's floor/unit and/or counseling patient: Coding Level of Care Code 77787 Subseq Hosp Care Lvl 3 Diagnoses Periprosthetic hip fracture M97.8XXA; Z96.649 Encounter type: initial encounter CAD (coronary artery disease) I25.10 CKD (chronic kidney disease) N18.9 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 Status post thoracic aortic aneurysm repair Z98.890; Z86.79 CVA (cerebral vascular accident) I63.9 CVA mechanism: unspecified Time Spent (min) 40 (1) Periprosthetic hip fracture Encounter type: initial encounter Qualified Code(s): M97.8XXA - Periprosthetic fracture around other internal prosthetic joint, initial encounter; Z96.649 - Presence of unspecified artificial hip joint (2) CVA (cerebral vascular accident) CVA mechanism: unspecified Qualified Code(s): I63.9 - Cerebral infarction, unspecified
[2022-06-30] MEDS: SODIUM CHLORIDE 0.9% 1000ML 1,000 ML IV SCH ×3 (00:53→21:18)
[2022-06-30 06:36] LABS: Hematocrit (blood only) 29.9 % (40.1-51.0); Hemoglobin 10.1 g/dl (14.0-18.0); Mean Corpuscular Hemoglobin 32.3 pg (25.0-34.0); Mean Corpuscular Hgb Conc 33.8 g/dL (32.0-36.0); Mean Corpuscular Volume 95.5 fL (80.0-100.0); Mean Platelet Volume 11.4 fL (9.4-12.4); Platelet Count 58 K/uL (130-400); RDW Coefficient of Variation 14.5 % (11.5-14.5); RDW Standard Deviation 50.5 fL (36.4-46.3); Red Blood Count 3.13 M/uL (4.63-6.08); White Blood Count 18.01 K/ul (4.8-10.8)
[2022-06-30 06:50] LABS: BUN Creatinine Ratio 20.9 (10-20); Calcium 9.7 mg/dl (8.5-10.1); Est GFR (African American) 67.4 ml/min; Est GFR (Non-African American) 58.1 ml/min; Potassium 4.1 mmol/L (3.5-5.1)
[2022-06-30] MEDS: HEPARIN SOD 5,000 UNIT/0.5 ML VIAL SQ SCH (08:14)
[2022-06-30] MEDS: CALCIUM 600MG + VIT D 400 IU TAB PO SCH ×2 (08:59→21:29)
[2022-06-30] MEDS: CHOLECALCIFEROL 1,000 UNITS 25 MCG TAB PO SCH (08:59)
[2022-06-30] MEDS: TAMSULOSIN HCL 0.4 MG CAP PO SCH (09:00)
[2022-06-30] MEDS: VALSARTAN 80 MG TAB PO SCH (09:00)
[2022-06-30] MEDS: ACETAMINOPHEN 325 MG TAB PO PRN ×2 (09:00→21:34)
[2022-06-30] MEDS: FINASTERIDE 5 MG TAB PO SCH (09:00)
[2022-06-30 11:44] LABS: Hematocrit (blood only) 28.5 % (40.1-51.0); Hemoglobin 9.7 g/dl (14.0-18.0); Mean Corpuscular Hemoglobin 32.6 pg (25.0-34.0); Mean Corpuscular Volume 95.6 fL (80.0-100.0); Mean Platelet Volume 10.6 fL (9.4-12.4); Platelet Count 66 K/uL (130-400); RDW Coefficient of Variation 14.4 % (11.5-14.5); RDW Standard Deviation 50.7 fL (36.4-46.3); Red Blood Count 2.98 M/uL (4.63-6.08); White Blood Count 16.19 K/ul (4.8-10.8)
--- NOTE | 2022-06-30 12:13 | Consultation ---
Date of Consultation June 30, 2022 Assessment & Plan (1) CLL (chronic lymphocytic leukemia): Previously on chlorambucil which was discontinued several months ago. Suspect that his thrombocytopenia is most likely due to autoimmune manifestation of CLL since he has no splenomegaly. 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 Give IVIG 1 g/kg/day x 2 doses for platelet count less than 50,000 History of Present Illness Reason for Consultation: Thrombocytopenia Attending Physician: Henry Reveles MD History of Present Illness Mr. Kline is a pleasant 86-year-old gentleman with history of CLL for which he was started on chlorambucil by Dr. Disla in October, due to significant leukocytosis with white count of greater than 250,000. He presented to the ER at [facility] after a fall and was found to have periprosthetic left hip fracture. Hematology was consulted for thrombocytopenia as patient is scheduled for left ORIF with hemiarthroplasty today. I had discussed this case with admitting hospitalist yesterday and recommended 2 units of platelet transfusion. He received 1 unit yesterday with plan for him to receive second unit of platelet today prior to surgery. During my evaluation of patient today, he complained of left hip pain but denied any other issues Allergies Allergy/AdvReac Type Severity Reaction Status Date / Time KVNG Inhibitors AdvReac Mild Cough Verified 06/10/22 14:43 codeine AdvReac Mild Nausea Verified 06/10/22 14:43 Home Medications Medication Instructions Recorded Confirmed Type calcium carbonate 600 mg-vitamin 1 tab PO BID 05/16/19 06/10/22 History D3 10 mcg (400 unit) tablet (Calcium 600 + D(3)) cholecalciferol (vitamin D3) 50 2,000 unit PO QAM 05/16/19 06/10/22 History mcg (2,000 unit) tablet (Vitamin D3) acetaminophen 500 mg capsule 500 mg PO Q6H PRN Pain 07/23/19 06/10/22 History fluticasone propionate 50 2 spray intranasal DAILY PRN 07/21/20 06/10/22 History mcg/actuation nasal Allergic Symptoms spray,suspension atorvastatin 40 mg tablet 40 mg PO HS #90 tabs 10/11/21 06/10/22 Rx finasteride 5 mg tablet 5 mg PO QAM 01/26/22 06/10/22 History tamsulosin 0.4 mg capsule 0.4 mg PO QAM #90 caps 02/07/22 06/10/22 Rx valsartan 80 mg tablet 80 mg PO QAM #30 tabs 03/08/22 06/10/22 Rx clotrimazole-betamethasone 1 1 applic topical TID PRN Swelling 03/21/22 06/10/22 Rx %-0.05 % topical cream #45 grams clopidogrel 75 mg tablet (Plavix) 75 mg PO DAILY #90 tabs 05/03/22 06/10/22 Rx Patient History Medical History Abscess Aortic aneurysm - S/p TEVAR (2016) - Aortic stent graft seen per 11/15/[address] scan - Per Chest CT 01/14/21= 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 Evidence for stent repair of the descending thoracic aorta. 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 Dr. Wright 08/03/2020 H/O thoracic aortic aneurysm repair Hip fracture requiring operative repair LEFT HIP History of carotid endarterectomy LEFT History of cataract surgery RT/LEFT History of hernia surgery LEFT INGUINAL 1980 History of left hip replacement History of right hip replacement History of tonsillectomy 1944 Hx of nasal polypectomy Nausea and vomiting after administration of anesthetic agent S/P left inguinal hernia repair (03/21/22) Recurrent left inguinal hernia repair. Dr. Wright Status post incision and drainage (06/26/20) incision and drainage in the office of the left posterior thigh abscess 06/26/20 Dr. Wright in office Family History Brother Colorectal cancer Stroke Family history of diabetes mellitus Father Heart disease Hypertension Stroke Other No family history of adverse response to anesthesia Denies family history of Ovarian cancer Prostate cancer Myocardial infarction Breast cancer Social History Smoking Status: Former smoker Tobacco Type: Cigarettes packs per day: 0.75; Years Smoked: 50; Cigarettes Per Day: 12 YEARS AGO; Smoking End Date: 2009; Second Hand Exposure: No; Tobacco Cessation Education Requested by Patient: No Hx Alcohol Use: Yes Alcohol type: beer and wine Alcohol Intake Frequency: 4 or More x per/Week Alcohol Intake Frequency Comment: 14 Hx Substance Use: No Preferred Language: Chinese Communication Ability: Effective Communication Ability Comment: Pt. [place] bilaterally Visual Impairment: No Limitations Hearing Ability: Use of Hearing Aid Perfumer Required: No Beliefs That Will Affect Care: None marital status: / Current Living Situation: Alone current occupational status: retired How many Children do You have: 0 Feels Safe at Home: Yes Safety Concerns: Feels Safe At This Time Childhood Exposure to Second-Hand Smoke: Yes Dental Care, Regularly: Yes Physical Activity Frequency: 1-2 Times per Week Seatbelt Use: always Sunscreen Use: No Assistive Devices: Glasses and Hearing Aid - Bilateral Assistive Devices Comment: Assistive devices at bedside Review of Systems Review of Systems: All systems reviewed & are unremarkable except as noted in HPI & below Constitutional: + weight loss Respiratory: as per Subjective / HPI Cardiovascular: as per Subjective / HPI Gastrointestinal: as per Subjective / HPI Genitourinary: + as per Subjective / HPI Musculoskeletal: as per Subjective / HPI Psychiatric: as per Subjective / HPI Endocrine: as per Subjective / HPI Hematologic / Lymphatic: as per Subjective / HPI Physical Exam Constitutional: + ill appearing and + cachectic Eyes: PERRL, conjunctivae normal, anicteric sclerae ENMT: external ear and nose normal, oropharynx normal Respiratory: normal respiratory effort, lungs clear to auscultation Cardiovascular: RRR, no murmur, no edema Gastrointestinal (Abdomen): normal bowel sounds, soft, nontender, no hepatosplenomegaly Results & Data ([facility]) Vital Signs (Past 12 Hours) Vital Signs Temp Pulse Pulse Resp BP BP Pulse Ox 06/30/22 12:02 36.9 C 52 L 18 168/93 H 97 06/30/22 10:19 36.9 C 62 22 162/68 H 94 06/30/22 09:50 36.5 C 65 20 180/76 H 95 06/30/22 09:34 36.3 C L 65 20 191/74 H 96 06/30/22 07:57 36.5 C 65 20 181/77 H 96 06/30/22 07:40 06/30/22 07:21 64 06/30/22 04:54 36.8 C 67 22 180/80 H 94 O2 Del Method 06/30/22 12:02 06/30/22 10:19 06/30/22 09:50 06/30/22 09:34 06/30/22 07:57 06/30/22 07:40 Room Air 06/30/22 07:21 06/30/22 04:54 Room Air PG Care Time/CCT Total # of Minutes Spent Total Time Spent: 20 Total Time Spent with Patient: Total time spent is greater than 50% in coordination of care (as documented) at patient's floor/unit and/or counseling patient: Coding Level of Care Code 94821 Inpt Consult Level 4 Diagnoses CLL (chronic lymphocytic leukemia) C91.90 Thrombocytopenia D69.6 Periprosthetic hip fracture M97.8XXA; Z96.649 Encounter type: initial encounter (1) Periprosthetic hip fracture Encounter type: initial encounter Qualified Code(s): M97.8XXA - Periprosthetic fracture around other internal prosthetic joint, initial encounter; Z96.649 - Presence of unspecified artificial hip joint
--- NOTE | 2022-06-30 12:36 | Hospitalist Progress Note ---
Date of Service June 30, 2022 Assessment & Plan (1) Periprosthetic hip fracture: Plan: Patient sustained this mechanical fall orthopedics will be consulted. Patient be medically optimized prior to surgery. - RCRI ~10%, history of both coronary disease and cerebrovascular disease. However does not have any signs or symptoms of unstable angina or congestive heart failure currently I would recommend proceed to surgery but postoperatively have the patient in a monitored setting - Orthopedic consultation placed w [facility] - plan for surgical repair on 06/29, this was delayed due to thrombocytopenia. hematology consulted - Patient will obtain a platelet transfusion of 1 unit in PM on 06/29. Second unit given am 06/30. - One additional unit on hold for post-op transfusion. 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 - Discussed w ortho. Anticipate operative intervention afternoon 06/30. Transfuse 3rd unit of plt postop. Onc following for assessment of IVIG need (2) CAD (coronary artery disease): Plan: - Plavix held perioperatively - Resume antiplatelets postop 24-48hours if doing well - Continue statin - Hold valsartan for 24-48 hours postop pending cr and BP (3) Delirium: Plan: Patient with episode of severe waxing waning delirium and agitation evening of 06/29 into 06/30 Does have a history of 1 beer and some wine intake nightly, last drink was more than 4 days ago. Skin is warm and dry and without tachycardia, low suspicion for alcohol withdrawal Caregiver for did ask about pharmacologic treatment of agitation/delirium or even giving a beer nightly, did not recommend this. Can continue melatonin, QT is prolonged so would defer atypical antipsychotic if possible as well. We will add as needed for severe agitation/risk of self, but also counseled on waxing waning nature of hospital delirium, multiple risk factors including pain and admission of several days. Zyprexa 2.5 mg IM as needed for severe agitation/risk of harm to self. Due to borderline QT prolongation needs to be monitored, and will optimize magnesium Delirium precautions (4) CKD (chronic kidney disease): Plan: - CKD 3 - ARB held periop - BMP daily - Renal dosing (5) BPH loc w/o ur obs/LUTS: Plan: Patient with recent phimosis surgery has an indwelling Bob catheter now due to hip fracture Follow [facility] (6) Status post thoracic aortic aneurysm repair: Plan: Patient is secondary risk prevention with Plavix and atorvastatin Plavix is held preoperatively (7) CVA (cerebral vascular accident): Plan DVT prevention Heparin to be undertaken until the patient can have his surgery Admission and Anticipated Discharge Date Admission Date: June 27, 2022 Subjective Seen at the bedside with his caregiver present this morning. Patient reports he does not have pain at rest, but has pain in his left leg with any attempted movement. He expresses great frustration over the delay in his surgery, r ecognizes that this is due to his low platelets and the risk/benefits of pursuing surgery with thrombocytopenia suboptimally optimized but again reiterates frustration at the overall delay. Denies bleeding. No chest pain, chest pressure, lightheadedness, dizziness. No shortness of breath, is able to lay flat comfortably. Did have recent agitation and confusion overnight, attempted to get out of bed at 3 AM and 5 AM, and placed a 911 call at [phone] in the setting of confusion and thinking that he was being lied to about where he was. Waxing/waning mentation consistent with delirium did receive dose of morphine at 2100. Review of Systems Review of Systems: All systems reviewed & are unremarkable except as noted in Subjective Physical Exam Physical Exam: General: Alert and oriented to name and building. Hard of hearing. Appears frail, but nontoxic HEENT: Atraumatic, normocephalic. Pupils equal and reactive. Vision grossly intact, hard of hearing but hearing grossly intact Pulm: CTAB A&P. -wheezes, -rales, -rhonchi. Symmetrical chest rise. No increase in work of breathing. No respiratory distress. Cardiac: RRR, -mrg. Radial pulses intact and symmetrical. Abdominal: Nontender, nondistended, soft. BS present. Extremities: Left leg externally rotated and shortened. Soft touch intact in hands and feet bilaterally without asymmetry, PT pulse intact in feet bilaterally. Cap refill at hallux less than 2 seconds bilaterally. Results & Data Results & Data ([facility]) Vital Signs (Past 12 Hours) Vital Signs Temp Pulse Pulse Resp BP BP Pulse Ox 06/30/22 12:02 36.9 C 52 L 18 168/93 H 97 06/30/22 10:19 36.9 C 62 22 162/68 H 94 06/30/22 09:50 36.5 C 65 20 180/76 H 95 06/30/22 09:34 36.3 C L 65 20 191/74 H 96 06/30/22 07:57 36.5 C 65 20 181/77 H 96 06/30/22 07:40 06/30/22 07:21 64 06/30/22 04:54 36.8 C 67 22 180/80 H 94 O2 Del Method 06/30/22 12:02 06/30/22 10:19 06/30/22 09:50 06/30/22 09:34 06/30/22 07:57 06/30/22 07:40 Room Air 06/30/22 07:21 06/30/22 04:54 Room Air PG Care Time/CCT Total # of Minutes Spent Total Time Spent with Patient: Total time spent is greater than 50% in coordination of care (as documented) at patient's floor/unit and/or counseling patient: Coding Level of Care Code 93126 Subseq Hosp Care Lvl 3 Diagnoses Periprosthetic hip fracture M97.8XXA; Z96.649 Encounter type: initial encounter CAD (coronary artery disease) I25.10 Delirium R41.0 CKD (chronic kidney disease) N18.9 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 Status post thoracic aortic aneurysm repair Z98.890; Z86.79 CVA (cerebral vascular accident) I63.9 CVA mechanism: unspecified (1) Periprosthetic hip fracture Encounter type: initial encounter Qualified Code(s): M97.8XXA - Periprosthetic fracture around other internal prosthetic joint, initial encounter; Z96.649 - Presence of unspecified artificial hip joint (2) CVA (cerebral vascular accident) CVA mechanism: unspecified Qualified Code(s): I63.9 - Cerebral infarction, unspecified
[2022-06-30 12:46] LABS: Basophils # (auto) 0.04 K/uL (0-0.2); Basophils % (auto) 0.2 %; Eosinophils # (auto) 0.03 K/uL (0-0.50); Eosinophils % (auto) 0.2 %; Immature Granulocytes # (auto) 0.06 K/uL (0.00-0.02); Immature Granulocytes % (auto) 0.4 %; Lymphocytes # (auto) 9.61 K/uL (1.2-3.4); Lymphocytes % (auto) 59.4 %; Monocytes # (auto) 0.86 K/uL (0.24-0.82); Monocytes % (auto) 5.3 %; Neutrophils # (auto) 5.59 K/uL (1.4-6.5); Neutrophils % (auto) 34.5 %; Polychromasia 1+; Smudge Cells Present
[2022-06-30] MEDS ORDERED: ONDANSETRON INJ 2 MG/ML 2 ML VIAL IV PRN (13:55)
[2022-06-30] MEDS ORDERED: fentaNYL citrate 100 MCG/2 ML VIAL IV PRN (13:55)
[2022-06-30] MEDS ORDERED: ePHEDrine sulfate 50 MG/ML AMP IV PRN (13:55)
[2022-06-30] MEDS ORDERED: ATROPINE SULFATE 0.1 MG/ML 10ML SYR IV PRN (13:55)
--- NOTE | 2022-06-30 13:59 | Anesthesiology Consultation ---
Date of Service June 30, 2022 Assessment & Plan (1) Encounter for pre-operative examination: Plan (1) Periprosthetic hip fracture: Plan: Patient sustained this mechanical fall orthopedics will be consulted. Patient be medically optimized prior to surgery. - RCRI ~10%, history of both coronary disease and cerebrovascular disease. However does not have any signs or symptoms of unstable angina or congestive heart failure currently I would recommend proceed to surgery but postoperatively have the patient in a monitored setting - Orthopedic consultation placed w [facility] - plan for surgical repair on 06/29, this was delayed due to thrombocytopenia. hematology consulted - Patient will obtain a platelet transfusion of 1 unit in PM on 06/29. Second unit given am 06/30. - One additional unit on hold for post-op transfusion. 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 - Discussed w ortho. Anticipate operative intervention afternoon 06/30. Transfuse 3rd unit of plt postop. Onc following for assessment of IVIG need Chart Review Chart Review: Acceptable Risk for Surgery and Patient NOT seen in Pre Admission Testing Consults Requested none History Surgery Operation Date: 06/29/22 07:00 Proposed Procedures p Left Hip Hemiarthroplasty Revision - Daryl Arroyo DO Operation Date: 06/30/22 08:05 Proposed Procedures p Left Hip Hemiarthroplasty Revision - Daryl Arroyo DO Height/Weight Height: 5 ft 7 in Weight: 57.6 kg Allergies Allergy/AdvReac Type Severity Reaction Status Date / Time KVNG Inhibitors AdvReac Mild Cough Verified 06/10/22 14:43 codeine AdvReac Mild Nausea Verified 06/10/22 14:43 Medications Home Medications Medication Instructions Recorded Confirmed Last Taken calcium carbonate 600 mg-vitamin 1 tab PO BID 05/16/19 06/10/22 03/20/22 23:30 D3 10 mcg (400 unit) tablet (Calcium 600 + D(3)) cholecalciferol (vitamin D3) 50 2,000 unit PO QAM 05/16/19 06/10/22 03/20/22 10:00 mcg (2,000 unit) tablet (Vitamin D3) acetaminophen 500 mg capsule 500 mg PO Q6H PRN Pain 07/23/19 06/10/22 03/20/22 23:55 fluticasone propionate 50 2 spray intranasal DAILY PRN 10/2006/10/22 08/02/20 08:30 mcg/actuation nasal Allergic Symptoms spray,suspension atorvastatin 40 mg tablet 40 mg PO HS #90 tabs 10/11/21 06/10/22 03/20/22 23:30 finasteride 5 mg tablet 5 mg PO QAM 01/26/22 06/10/22 03/20/22 10:00 tamsulosin 0.4 mg capsule 0.4 mg PO QAM #90 caps 02/07/22 06/10/22 03/21/22 05:00 valsartan 80 mg tablet 80 mg PO QAM #30 tabs 03/08/22 06/10/22 03/21/22 05:00 clotrimazole-betamethasone 1 1 applic topical TID PRN Swelling 03/21/22 06/10/22 Unknown %-0.05 % topical cream #45 grams clopidogrel 75 mg tablet (Plavix) 75 mg PO DAILY #90 tabs 05/03/22 06/10/22 Unknown Active Medications Generic Name Dose Route Start Last Admin Trade Name Freq PRN Reason Stop Dose Admin Acetaminophen 650 mg 06/27/22 20:50 06/30/22 09:00 Acetaminophen 325 Mg Tab PO 07/27/22 20:49 650 mg Q4H PRN Administration Pain or Fever Atorvastatin Calcium 40 mg 06/27/22 21:00 06/29/22 20:58 Atorvastatin 40 Mg Tab PO 07/27/22 20:59 40 mg HS JORGE Administration Finasteride 5 mg 06/28/22 09:00 06/30/22 09:00 Finasteride 5 Mg Tab PO 07/28/22 08:59 5 mg QAM JORGE Administration Heparin Sodium (Porcine) 5,000 units 06/27/22 21:00 06/30/22 08:14 Heparin Sod 5,000 Unit/0.5 Ml Vial SQ 07/27/22 20:59 Not Given Q12 JORGE Sodium Chloride 1,000 mls @ 80 mls/hr 06/27/22 20:50 06/30/22 12:11 Nss 1000ml IV 07/27/22 20:49 80 mls/hr .[id number] JORGE Administration Melatonin 3 mg 06/28/22 21:30 06/29/22 20:58 Melatonin 3 Mg Tab PO 07/28/22 21:29 3 mg HS PRN Administration Sleep Morphine Sulfate 2 mg 06/27/22 20:50 06/29/22 20:59 Morphine Sulfate 2 Mg/Ml Carp IV 07/11/22 20:49 2 mg Q4 PRN Administration Pain Scale: 2,3,4,5,6 Morphine Sulfate 4 mg 06/27/22 20:50 06/28/22 21:37 Morphine Sulfate 4 Mg/Ml 1 Ml Carp\Vial IV 07/11/22 20:49 4 mg Q4 PRN Administration Pain Scale 7,8,9,10 Multivitamins/Minerals 1 tab 06/27/22 21:00 06/30/22 08:59 Calcium 600mg + Vit D 400 Iu Tab PO 07/27/22 20:59 1 tab BID JORGE Administration Tamsulosin HCl 0.4 mg 06/28/22 09:00 06/30/22 09:00 Tamsulosin Hcl 0.4 Mg Cap PO 07/28/22 08:59 0.4 mg QAM JORGE Administration Valsartan 80 mg 06/28/22 09:00 06/30/22 09:00 Valsartan 80 Mg Tab PO 07/28/22 08:59 80 mg QAM JORGE Administration Vitamin D 2,000 units 06/28/22 09:00 06/30/22 08:59 Cholecalciferol 1,000 Units 25 Mcg Tab PO 07/28/22 08:59 2,000 units QAM JORGE Administration Past Medical History Medical History Abscess Aortic aneurysm - S/p TEVAR (2016) - Aortic stent graft seen per 11/15/[address] scan - Per Chest CT 01/14/21= 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 Evidence for stent repair of the descending thoracic aorta. 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 Bifascicular block Chronic, dating back to at least 08/2018 per chart review Bilateral inguinal hernia BPH (benign prostatic hyperplasia) WITH URINARY LEAKAGE CAD (coronary artery disease) Nonobstructive per cardio records (pt denies cardiac cath per 01/18/22 cardio note_ Cardiomyopathy EF 60-65% per 06/2021 ECHO Carotid artery disease S/p left carotid endarterectomy (2013) Per neck CTA 10/23/20= No significant carotid artery disease CKD (chronic kidney disease) CLL (chronic lymphocytic leukemia) Hearing deficit History of seizure [place] r/t hypoglycemic episodes (last ) History of stroke Initial stroke 2007- felt secondary to carotid disease (s/p left CEA) Possible second CVA shortly after first CVA Per records- CVA 10/23/20 On Plavix No residual effects Hyperlipidemia Hypertension Hypertension Left thigh pain Osteoporosis Right inguinal hernia Right inguinal hernia Past Family History Family History Brother Colorectal cancer Stroke Family history of diabetes mellitus Father Heart disease Hypertension Stroke Other No family history of adverse response to anesthesia Denies family history of Ovarian cancer Prostate cancer Myocardial infarction Breast cancer Past Surgical History Surgical History H/O right inguinal hernia repair (08/03/20) Open right inguinal hernia repair. Dr. Wright 08/03/2020 H/O thoracic aortic aneurysm repair Hip fracture requiring operative repair LEFT HIP History of carotid endarterectomy LEFT History of cataract surgery RT/LEFT History of hernia surgery LEFT INGUINAL 1980 History of left hip replacement History of right hip replacement History of tonsillectomy 1944 Hx of nasal polypectomy Nausea and vomiting after administration of anesthetic agent S/P left inguinal hernia repair (03/21/22) Recurrent left inguinal hernia repair. Dr. Wright Status post incision and drainage (06/26/20) incision and drainage in the office of the left posterior thigh abscess 06/26/20 Dr. Wright in office Social History Smoking Status: Former smoker tobacco type: cigarettes and pipe Smoking cigarettes per day: 12 YEARS AGO Smoking End Date: 2009 Hx Alcohol Use: Yes Alcohol type: beer and wine alcohol intake frequency: 0-2 drinks per day Hx Substance Use: No substance use type: does not use Physical Exam Vital Signs Last Vital Signs Temp 37.3 C 06/30/22 14:10 Pulse 73 06/30/22 14:10 Resp 18 06/30/22 14:10 BP 202/77 H 06/30/22 14:10 Pulse Ox 95 06/30/22 14:10 O2 Del Method 06/30/22 14:10 Testing Laboratory Results 06/30/22 11:17 06/30/22 06:14 Urine Color Yellow 06/27/22 17:05 Urine Appearance Clear (Clear) 06/27/22 17:05 Urine pH 6.5 (4.5-7.5) 06/27/22 17:05 Ur Specific [place] 1.012 (1.000-1.030) 06/27/22 17:05 Urine Protein 1+ (Negative) H 06/27/22 17:05 Urine Glucose (UA) Trace (Negative) H 06/27/22 17:05 Urine Ketones Negative (Negative) 06/27/22 17:05 Urine Nitrite Negative (Negative) 06/27/22 17:05 Ur Leukocyte Esterase Negative (Negative) 06/27/22 17:05 Urine WBC (Auto) 1-5 /hpf (0-5) 06/27/22 17:05 Urine RBC (Auto) 10-30 /hpf (0-4) H 06/27/22 17:05 U Hyaline Cast (Auto) 0 /lpf (0-5) 06/27/22 17:05 U Epithel Cells (Auto) 5-10 /lpf (0-5) H 06/27/22 17:05 Urine Bacteria (Auto) Negative (Negative) 06/27/22 17:05 Blood Type O Positive 06/28/22 21:01 Antibody Screen NEGATIVE 06/28/22 21:01 Electrocardiogram Date: 06/27/22 Findings: + NSR @ (at 97;LAFB) and + RBBB Chest X-Ray Date: 06/27/22 Findings: + NAD aortic stent graft Echocardiogram Date: 06/09/21 EF: 60% LV Function: normal RWMA: + none Other Findings: + LVH and + diastolic dysfunction (grade 1) Valvular Disease: + no significant valvular disease Other Testing 05/07/2015-Carotid U/S-atherosclerotic plaque , but no H/D sig. stenoses
[2022-06-30] MEDS ORDERED: SODIUM CHLORIDE 0.9% 250 ML IV PRN (14:02)
[2022-06-30] MEDS ORDERED: ETOMIDATE 2 MG/ML 20 ML VIAL IV ONE (14:02)
[2022-06-30] MEDS ORDERED: PROPOFOL IV EMULSION 10 MG/ML 20 ML VIAL IV ONE (14:02)
[2022-06-30] MEDS ORDERED: LIDOCAINE 2% MPF LOCAL 5 ML VIAL INFIL ONE (14:02)
[2022-06-30] MEDS ORDERED: fentaNYL citrate 100 MCG/2 ML VIAL ONE ×2 (14:02→15:15)
[2022-06-30] MEDS ORDERED: ONDANSETRON INJ 2 MG/ML 2 ML VIAL ONE (14:03)
[2022-06-30] MEDS ORDERED: DEXAMETHASONE SOD INJ 4 MG/ML VIAL ONE (14:03)
[2022-06-30] MEDS ORDERED: ACETAMINOPHEN 1000 MG/100 ML IV IV ONE (14:09)
[2022-06-30] MEDS ORDERED: FAMOTIDINE/PF 20 MG/2 ML VIAL IV ONE (14:09)
[2022-06-30] MEDS ORDERED: SUGAMMADEX SODIUM 200 MG/2 ML VIAL IV ONE (14:09)
[2022-06-30] MEDS ORDERED: ceFAZolin 2,000 MG/15 ML IV PUSH IV ONE (14:15)
[2022-06-30] MEDS ORDERED: ceFAZolin 2000MG 2,000 MG/15 ML SYR IV ONE (14:15)
--- NOTE | 2022-06-30 14:20 | History & Physical Bridge Note ---
Date of Service June 30, 2022 History & Physical Bridge Note I have examined the patient, reviewed the History & Physical and in the interval since the performance of the History & Physical I have noted the following changes of clinical significance: no changes noted. Discussed Left Hip ORIF w/ revision hemiarthoplasty with patient. After reviewing risks/benefits patient agrees to proceed with surgery and written consent obtained.
[2022-06-30] MEDS ORDERED: ORTHO JOINT ANESTHETIC ONE (14:21)
[2022-06-30] MEDS ORDERED: ALBUMIN HUMAN 5% 12.5 GM/250 ML VIAL IV ONE (14:54)
[2022-06-30] MEDS ORDERED: ROPIVACAINE 0.5% HCL/PF 150 MG, BUPIVACAINE 0.75% MPF 20 ML, EPINEPHrine 0.15 MG, Ketor... INFIL SCH (15:00)
[2022-06-30] MEDS ORDERED: ePHEDrine sulfate 50 MG/ML AMP ONE (15:15)
[2022-06-30] MEDS ORDERED: PHENYLEPHRINE HCL 10 MG/ML VIAL ONE (15:15)
[2022-06-30] MEDS ORDERED: VASOPRESSIN 20 UNIT/ML VIAL ONE (15:15)
[2022-06-30] MEDS ORDERED: MELATONIN 3 MG TAB PO PRN (17:47)
--- NOTE | 2022-06-30 18:35 | Anesthesiology Progress Note ---
Date of Service June 30, 2022 Anesthesia Post Procedure Vital Signs Vital Signs: Temp Pulse Pulse Pulse Resp BP BP 06/30/22 18:20 72 20 149/73 H 06/30/22 18:10 74 14 156/65 H 06/30/22 18:00 81 19 164/80 H 06/30/22 17:50 82 15 173/72 H 06/30/22 17:40 80 21 162/99 H 06/30/22 17:31 37.2 C 79 18 168/78 H 06/30/22 14:10 37.3 C 73 18 202/77 H 06/30/22 12:02 36.9 C 52 L 18 168/93 H 06/30/22 10:19 36.9 C 62 22 162/68 H 06/30/22 09:50 36.5 C 65 20 180/76 H 06/30/22 09:34 36.3 C L 65 20 191/74 H 06/30/22 07:57 36.5 C 65 20 181/77 H 06/30/22 07:40 06/30/22 07:21 64 06/30/22 04:54 36.8 C 67 22 180/80 H 06/29/22 23:09 36.7 C 74 18 163/73 H 06/29/22 23:20 80 06/29/22 19:30 36.8 C 87 22 135/58 L 06/29/22 18:35 96 H 14 147/62 H Pulse Ox O2 Del Method O2 Flow Rate 06/30/22 18:20 98 Nasal Cannula 2 06/30/22 18:10 98 Nasal Cannula 2 06/30/22 18:00 94 Nasal Cannula 2 06/30/22 17:50 97 Nasal Cannula 2 06/30/22 17:40 99 Oxymask 5 06/30/22 17:31 98 Oxymask 5 06/30/22 14:10 95 Room Air 06/30/22 12:02 97 06/30/22 10:19 94 06/30/22 09:50 95 06/30/22 09:34 96 06/30/22 07:57 96 06/30/22 07:40 Room Air 06/30/22 07:21 06/30/22 04:54 94 Room Air 06/29/22 23:09 96 Room Air 06/29/22 23:20 06/29/22 19:30 95 Room Air 06/29/22 18:35 94 Pain Intensity Left Hip: Pain Intensity: 5 Back: Pain Intensity: 0 Transfer of Care Handoff Completed per policy Notes Mental Status: alert / awake / arousable and participated in evaluation Patient Amnestic to Procedure: Yes Nausea / Vomiting: adequately controlled Pain: adequately controlled Airway Patency, RR, SpO2: stable & adequate BP & HR: stable & adequate Hydration State: stable & adequate Anesthetic Complications: no major complications apparent and Pt Satisfied with anesthetic care
--- NOTE | 2022-06-30 20:03 | Post Operative Brief Note ---
Immediate Post Op Note v1 Date of Surgery June 30, 2022 Pre & Post Diagnosis Operation Date: 06/29/22 07:00 <No data on this case meets the specified criteria> Operation Date: 06/30/22 08:05 Pre-Op Diagnosis: Left Periprosthetic Hip Fracture Post-Op Diagnosis: Left Periprosthetic Hip Fracture I identified the patient and participated in the time-out.: Yes Procedure Operation Date: 06/29/22 07:00 <No data on this case meets the specified criteria> Operation Date: 06/30/22 08:05 Actual Procedures p Left Hip Open Reduction Internal Fixaton with Hemiarthroplasty Revision(Left) - Daryl Arroyo DO Surgeon Daryl Arroyo DO Painting Machine Operator Sabino Unger PAC Estimated Blood Loss 300 Findings Consistent with Post-Op Diagnosis See dictation Drains Bob Catheter
--- NOTE | 2022-06-30 20:17 | Operative Report ---
Post Operative Report Pre & Post Diagnosis Operation Date: 06/29/22 07:00 <No data on this case meets the specified criteria> Operation Date: 06/30/22 08:05 Pre-Op Diagnosis: Left Periprosthetic Hip Fracture Post-Op Diagnosis: Left Periprosthetic Hip Fracture I identified the patient and participated in the time-out.: Yes Procedure Operation Date: 06/29/22 07:00 <No data on this case meets the specified criteria> Operation Date: 06/30/22 08:05 Actual Procedures p Left Hip Open Reduction Internal Fixaton with Hemiarthroplasty Revision(Left) - Daryl Arroyo DO Surgeon Daryl Arroyo, Senior Consumer Insights Consultant Sabino Unger PAC Estimated Blood Loss 300 Findings Consistent with Post-Op Diagnosis See dictation Specimens None Indications 86-year-old male who presented to the emergency department after sustaining a ground-level fall onto his left side. He had previously underwent a left hip hemiarthroplasty several years ago for a left femoral neck fracture and was otherwise doing well. Radiographs in the emergency department demonstrated a periprosthetic left proximal femur fracture near the tip of the femoral prosthesis with gross subsidence of the femoral component. The patient was admitted to medical service and orthopedics was consulted for operative management. Preoperatively I met with the patient we do lengthy discussion regarding risk benefits and potential complications of revision of his left hip hemiarthroplasty with open reduction internal fixation of his fracture. Risk and benefits included but are not limited to: Infection, neurovascular injury, DVT, nonunion, leg length discrepancy, dislocation, fracture, and need for subsequent surgical procedures. After reviewing these he elected proceed with surgical intervention and written consent was obtained. Description of Procedure Implants: Pablo christianity modular hip system distal conical stem 155 mm length by 16 mm diameter, christianity modular proximal body size 19 mm +0 height, Pablo LFIT V 40 femoral head 26 mm outside diameter with -3 mm offset, universal head bipolar component 50 mm outside diameter. [facility] beaded cables 2 mm X4, [facility] trochanteric composing room machinist apprentice plate size large 110 mm. Operative note: Patient was appropriately identified in the left lower extremity was marked in the preoperative holding area. He received antibiotics per protocol. He was then taken back to the operative suite where after successful induction of anesthesia he was transferred over to the regular OR table. He was positioned in the lateral decubitus position with the left hip facing upwards using Stulberg hip positioners. Patient was then prepped and draped in the standard orthopedic fashion and timeout was then performed. A posterior lateral incision was made overlying the trochanter. Electrocautery was used to dissect through subcutaneous tissue down to the IT band and gluteal fascia which was then cleared with a Nguyen elevator and split in line with the incision. Charnley retractor was then placed. There was noted to be significant scar tissue overlying the trochanter at the site of previous anterior lateral approach. Short external rotators were then identified and the piriformis was tagged and reflected off the posterior capsule. T capsulotomy was then performed with the inferior capsular limb being tagged. There was gross subsidence of the femoral stem and fracture hematoma was encountered. The hip was then successfully dislocated. Using a saddle impactor the femoral head was then removed from the trunnion. Femoral head was noted to be 50 mm outside diameter. Soft tissue surrounding the inner aspect of the trochanter was then cleared and a pin inserter regulator was then threaded into the femoral head and with several back slaps was able to be easily removed. Wound was then copiously irrigated. Medial spike was noted to be migrated distally. The incision was then extended down distally and attention was turned to placement of Dall-Miles cables. Dall-Miles cable was provisionally placed around the fracture site and the spike was then reduced back to the femoral shaft using a combination of traction reduction and elevation. The Dall-Miles cable was then sequentially tightened and a provisional clip was placed to hold it into position. Attention was then turned to reaming of the femoral canal. Starting with a canal finder reamer the canal was sequentially reamed up to a size 16 mm reamer. A 155 mm x 16 mm distal conical body was then impacted into the femoral canal. Proximal reaming attachment was then placed in the proximal canal was then overreamed to a size 19 mm diameter. Trial 19 mm proximal body with +0 height was then placed. A trial 50 mm +0 femoral head was then placed on the trunnion and then attempted reduction was performed. Unfortunately during the reduction there was noted to be a crack in the proximal trochanter. There is significant scar tissue overlying the anterior aspect from previous anterior lateral approach and suture and bone tunnels that were placed. Electrocautery was used to remove residual scar tissue as well as elevator to free the fracture fragment. A trochanteric claw plate 110 mm length was then selected provisional cables were then placed around the femoral shaft and through the plate distally as well as at the midportion of the plate underneath the lesser trochanter. These were provis ionally tightened. Hip was then successfully dislocated and trial head and proximal body were removed. Anteversion was then marked using electrocautery. A 19 mm +0 proximal body was then selected and then impacted onto the distal conical stem. Once it was seated at appropriate height anteversion was then set and it was tightened and then torqued to appropriate tension connecting it to the distal conical stem. A 50 mm -3 femoral head trial was then placed and the hip was successfully reduced leg lengths as well as stability were noted to be satisfactory. The hip was then successfully dislocated the trunnion was copiously irrigated and dried and a 50 mm -3 bipolar femoral head was then impacted onto the trunnion with several brisk taps. The hip was then successfully relocated. An additional Dall-Miles cable was then placed around the proximal aspect of the trochanteric claw plate and around the neck of the femoral stem it was provisionally tightened to help secure the fracture. At this point final tensioning was then applied to Dall-Miles cables and all cables were then crimped and tails were then cut. This provided good reduction of the fracture. Wounds were then copiously irrigated using dilute Betadine solution followed by normal saline solution. T capsulotomy was then closed in a [id number] fashion using 1-0 Ethibond suture in a running fashion. Charnley retractor was then removed and IT band fascia was then closed in interrupted fashion using 1-0 Ethibond suture followed by running OV lock suture to provide watertight closure. Subcutaneous tissues were then copiously irrigated and closed using 2-0 Vicryl suture followed by manju for the skin. A sterile dressing of Xeroform 4 x 4 gauze ABD and tape was then applied. The patient tolerated the procedure well and was taken to the recovery room in hemodynamically stable condition. Sabino KHAN was present for the duration of the case. He assisted in patient positioning soft tissue management and exposure, retraction as well as soft tissue closure. I attest to the content of the Intraoperative Record and any orders documented therein. Any exceptions are noted below.
[2022-06-30] MEDS: ATORVASTATIN 40 MG TAB PO SCH (21:29)
[2022-06-30] MEDS: MoRPHine SULFATE 2 MG/ML CARP IV PRN (21:34)
--- NOTE | 2022-06-30 22:15 | XRay Report ---
LEFT HIP 2 VIEWS CLINICAL HISTORY: Postoperative examination. FINDINGS: AP and crosstable lateral views of the left hip are compared to study dated 06/27/2022. The skeletal structures are osteopenic. A revised left hip arthroplasty with a long femoral stem is in ne ar anatomic alignment. A buttress plate has been placed along the lateral cortex of the proximal femu r with numerous cerclage wires. The periprosthetic fracture seen previously is in near-anatomic align ment. Skin clips, soft tissue swelling, and subcutaneous gaseous overlying the left hip represent exp ected postoperative change. No new fracture is seen. The visualized left hemipelvis appears intact. A dvanced atherosclerotic calcification is seen in the left femoral artery. IMPRESSION: Again seen is a periprosthetic fracture of the left proximal femur with interval postoper ative change as above. Near-anatomic alignment is maintained. Electronically signed by: Jason Francois M.D. 06/30/2022 10:14 PM
[2022-07-01] MEDS: ceFAZolin 2000MG 2,000 MG/15 ML SYR IV SCH ×2 (00:08→08:35)
[2022-07-01] MEDS: APIXABAN 2.5 MG TAB PO SCH (01:10)
[2022-07-01] MEDS: ACETAMINOPHEN 325 MG TAB PO PRN (04:29)
[2022-07-01] MEDS ORDERED: HYDROmorphone INJ 0.5 MG/0.5 ML SYR IV STA (05:44)
[2022-07-01] MEDS: ACETAMINOPHEN 500 MG TAB PO SCH ×3 (05:56→20:18)
--- NOTE | 2022-07-01 06:00 | Communication Note ---
Date of Service: July 01, 2022 D/W Dr. Reveles prior to shift start re: delirium, current plan of care Notified by patient's RN at 0220 that he was confused and more agitated after morphine 2mg x 1 at 2130. Reportedly pulling off mitts and paranoid thinking. Noted in day team notes that waxing/waning severe delirium has been a problem ; noted that patient drinks 2 drinks/day. Ativan was suggested, as was possible change in analgesics. Patient continued to have mitts on. Orders were not changed at this time; preferred to hold from bzd's/antipsychotics unless harm to self or others given risk of worsening delirium. Notified at 0530 that patient unfortunately was still experiencing pain - Tylenol ineffective. Opted to schedule Tylenol and give 1x dose of Dilaudid 0.25mg as a trial of different analgesic in case morphine was deliriogenic in this individual. Went to see pt - calm but A&Ox1 with intermittent periods of confusion, did not know where he was/what time it was/why he was here. Denied pain at my time. Not in obvious distress. Pedal pulses 2+, dressings in place. Abdomen was soft/NT/ND. Respirations were relaxed. Delirium - hospital acquired and perioperative. scheduled Tylenol - could consider monitoring of morphine relationship to delirium, difficult to assess given just one dose and evening onset of worsening agitation/delirium. will defer to primary team. continue melatonin, standard delirium precautions. Resident Activity Tracking Resident Involvement: Resident Care Provided Care Provided: Adult Hospital Medicine
[2022-07-01] MEDS: CALCIUM 600MG + VIT D 400 IU TAB PO SCH ×2 (08:36→20:17)
[2022-07-01] MEDS: FINASTERIDE 5 MG TAB PO SCH (08:36)
[2022-07-01] MEDS: TAMSULOSIN HCL 0.4 MG CAP PO SCH (08:36)
[2022-07-01] MEDS: CHOLECALCIFEROL 1,000 UNITS 25 MCG TAB PO SCH (08:36)
[2022-07-01 10:15] LABS: Hematocrit (blood only) 19.8 % (40.1-51.0); Hemoglobin 6.7 g/dl (14.0-18.0); Mean Corpuscular Hemoglobin 32.8 pg (25.0-34.0); Mean Corpuscular Hgb Conc 33.8 g/dL (32.0-36.0); Mean Corpuscular Volume 97.1 fL (80.0-100.0); Mean Platelet Volume 10.6 fL (9.4-12.4); Platelet Count 81 K/uL (130-400); RDW Coefficient of Variation 14.4 % (11.5-14.5); RDW Standard Deviation 50.8 fL (36.4-46.3); Red Blood Count 2.04 M/uL (4.63-6.08); White Blood Count 16.75 K/ul (4.8-10.8)
[2022-07-01 10:30] LABS: BUN Creatinine Ratio 26.7 (10-20); Calcium 9.1 mg/dl (8.5-10.1); Creatinine Clr Calc Pharmacy 36.9 ml/min; Est GFR (Non-African American) 55.2 ml/min; Magnesium 2.2 mg/dl (1.7-2.4); Potassium 3.2 mmol/L (3.5-5.1)
[2022-07-01 10:46] LABS: Basophils # (auto) 0.01 K/uL (0-0.2); Basophils % (auto) 0.1 %; Immature Granulocytes # (auto) 0.03 K/uL (0.00-0.02); Immature Granulocytes % (auto) 0.2 %; Lymphocytes # (auto) 10.36 K/uL (1.2-3.4); Lymphocytes % (auto) 61.9 %; Monocytes # (auto) 1.31 K/uL (0.24-0.82); Monocytes % (auto) 7.8 %; Neutrophils # (auto) 5.04 K/uL (1.4-6.5); Polychromasia 1+; Smudge Cells Present
[2022-07-01] MEDS ORDERED: SODIUM CHLORIDE 0.9% 250 ML IV PRN (11:03)
[2022-07-01 11:39] LABS: Ferritin 119.6 ng/ml (8-388)
[2022-07-01 11:45] LABS: Folate (Folic Acid) 12.1 ng/ml (>5.38)
--- NOTE | 2022-07-01 12:43 | Orthopedic Progress Note ---
Date of Service July 01, 2022 Assessment & Plan (1) Periprosthetic hip fracture: Plan: Postop day 1 status post ORIF left periprosthetic femur fracture; revision left bipolar hemiarthroplasty stem. Acute blood loss anemia. Hemoglobin has dropped down to 6.7. Blood transfusion has been ordered by hospitalist service. Platelet count is up to 88,000. PT/OT protocols. Weightbearing as tolerated. DVT prophylaxis -okay to resume heparin twice daily as per Medicine service Pain management as written. Admission and Anticipated Discharge Date Admission Date: June 27, 2022 Subjective Postop day 1 Patient sitting up in bed alert, but confused. Pleasant. Continues to talk as if he is at [facility]. States he does have some left hip pain but its not bothering him at that time. Physical Exam Physical Exam: Dressings are clean, dry, and intact. Calves are soft nontender. Neurovascular is intact. Toes are mobile. Leg lengths appear equal. Results & Data ([facility]) Vital Signs (Past 12 Hours) Vital Signs Temp Pulse Pulse Resp BP BP Pulse Ox 07/01/22 12:12 36.9 C 72 16 146/65 H 07/01/22 11:20 36.8 C 69 18 145/65 H 96 07/01/22 09:45 07/01/22 07:51 85 07/01/22 07:48 36.8 C 70 20 141/64 H 99 07/01/22 01:24 89 07/01/22 01:45 36.9 C 96 H 22 131/75 94 07/01/22 01:04 36.4 C L 91 H 22 109/59 L 95 O2 Del Method 07/01/22 12:12 07/01/22 11:20 07/01/22 09:45 Room Air 07/01/22 07:51 07/01/22 07:48 07/01/22 01:24 07/01/22 01:45 07/01/22 01:04 Laboratory Results Laboratory Results WBC 16.75 K/ul (4.8-10.8) H 07/01/22 09:35 RBC 2.04 M/uL (4.63-6.08) L 07/01/22 09:35 Hgb 6.7 g/dl (14.0-18.0) L* 07/01/22 09:35 Hct 19.8 % (40.1-51.0) L* 07/01/22 09:35 MCV 97.1 fL (80.0-100.0) 07/01/22 09:35 MCH 32.8 pg (25.0-34.0) 07/01/22 09:35 MCHC 33.8 g/dL (32.0-36.0) 07/01/22 09:35 RDW Std Deviation 50.8 fL (36.4-46.3) H 07/01/22 09:35 RDW Coeff of Jewel 14.4 % (11.5-14.5) 07/01/22 09:35 Plt Count 81 K/uL (130-400) L 07/01/22 09:35 MPV 10.6 fL (9.4-12.4) 07/01/22 09:35 Immature Gran % (Auto) 0.2 % 07/01/22 09:35 Neut % (Auto) 30.0 % 07/01/22 09:35 Lymph % (Auto) 61.9 % 07/01/22 09:35 [place] % (Auto) 7.8 % 07/01/22 09:35 Eos % (Auto) 0.0 % 07/01/22 09:35 Baso % (Auto) 0.1 % 07/01/22 09:35 Neut # (Auto) 5.04 K/uL (1.4-6.5) 07/01/22 09:35 Lymph # (Auto) 10.36 K/uL (1.2-3.4) H 07/01/22 09:35 [place] # (Auto) 1.31 K/uL (0.24-0.82) H 07/01/22 09:35 Eos # (Auto) 0.00 K/uL (0-0.50) 07/01/22 09:35 Baso # (Auto) 0.01 K/uL (0-0.2) 07/01/22 09:35 Immature Gran # (Auto) 0.03 K/uL (0.00-0.02) H 07/01/22 09:35 Smudge Cells Present 07/01/22 09:35 Polychromasia 1+ 07/01/22 09:35 Peripher Smr Path Cons 06/30/22 06:14 Peripher Smr Path Cons Cancelled 06/30/22 06:14 Sodium 141 mmol/L (136-145) 07/01/22 09:35 Potassium 3.2 mmol/L (3.5-5.1) L D 07/01/22 09:35 Chloride 109 mmol/L (98-107) H 07/01/22 09:35 Carbon Dioxide 25 mmol/L (21-32) 07/01/22 09:35 Anion Gap 7 (3-11) 07/01/22 09:35 BUN 32 mg/dl (6-23) H 07/01/22 09:35 Creatinine 1.20 mg/dl (0.6-1.4) 07/01/22 09:35 Est Cr Clr Drug Dosing 36.9 ml/min 07/01/22 09:35 Est GFR ( Amer) 64.0 ml/min 07/01/22 09:35 Est GFR (Non-Af Amer) 55.2 ml/min 07/01/22 09:35 BUN/Creatinine Ratio 26.7 (10-20) H 07/01/22 09:35 Glucose 102 mg/dl (70-99(Fasting)) H 07/01/22 09:35 POC Glucose 107 mg/dl (70-99) H 06/29/22 10:45 Calcium 9.1 mg/dl (8.5-10.1) 07/01/22 09:35 Magnesium 2.2 mg/dl (1.7-2.4) 07/01/22 09:35 Iron 19 mcg/dl (35-175) L 07/01/22 10:37 Unsaturated IBC 224 mcg/dl (155-355) 07/01/22 10:37 Ferritin 119.6 ng/ml (8-388) 07/01/22 10:37 Total Creatine Kinase 249 U/L (30-223) H 06/27/22 15:20 Troponin I High Sens 39.2 pg/ml (0-20) H D 06/27/22 15:20 Vitamin B12 500 pg/ml (180-914) 07/01/22 10:37 25-OH Vitamin D Total 52.5 ng/ml (30-100) 07/01/22 09:35 Folate 12.10 ng/ml (>5.38) 07/01/22 10:37 Urine Color Yellow 06/27/22 17:05 Urine Appearance Clear (Clear) 06/27/22 17:05 Urine pH 6.5 (4.5-7.5) 06/27/22 17:05 Ur Specific [place] 1.012 (1.000-1.030) 06/27/22 17:05 Urine Protein 1+ (Negative) H 06/27/22 17:05 Urine Glucose (UA) Trace (Negative) H 06/27/22 17:05 Urine Ketones Negative (Negative) 06/27/22 17:05 Urine Blood 2+ (Negative) H 06/27/22 17:05 Urine Nitrite Negative (Negative) 06/27/22 17:05 Urine Bilirubin Negative (Negative) 06/27/22 17:05 Urine Urobilinogen Negative (Negative) 06/27/22 17:05 Ur Leukocyte Esterase Negative (Negative) 06/27/22 17:05 Urine WBC (Auto) 1-5 /hpf (0-5) 06/27/22 17:05 Urine RBC (Auto) 10-30 /hpf (0-4) H 06/27/22 17:05 U Hyaline Cast (Auto) 0 /lpf (0-5) 06/27/22 17:05 U Epithel Cells (Auto) 5-10 /lpf (0-5) H 06/27/22 17:05 Urine Bacteria (Auto) Negative (Negative) 06/27/22 17:05 SARS-CoV-2, RNA, NAAT NEGATIVE (NEGATIVE) 06/27/22 17:54 Blood Type O Positive 07/01/22 11:20 Antibody Screen NEGATIVE 07/01/22 11:20 Crossmatch See Detail 07/01/22 11:20 Impressions Chest X-Ray 06/27/22 15:47 XR chest 1V portable CLINICAL HISTORY: fall hip injury TECHNIQUE: Single frontal radiograph of the chest was obtained. Comparison: Comparison is made to chest radiograph 8222 FINDINGS: Aortic graft is seen. The cardiomediastinal silhouette is stable. The lungs are clear. No evidence of pleural effusion or pneumothorax. IMPRESSION: No acute abnormality. 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 ACT 112: Negative or not required by law. Electronically signed by: Kristofer Henry M.D. 06/27/2022 5:09 PM Femur X-Ray 06/27/22 15:47 XR pelvis 1-2V routine, XR femur LT 2V routine CLINICAL HISTORY: fall hip pain TECHNIQUE: A single frontal view of the pelvis was obtained. 2 views of left femur were obtained. Comparison: Comparison is made to CT abdomen pelvis 06/02/2022 and hip radiograph 06/10/2018 FINDINGS: There is an acute fracture of the left proximal diaphysis around the prosthesis. 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 Soft tissue swelling is seen about the knee. Vascular calcifications are seen. IMPRESSION: Displaced fracture of the proximal left femur about the prosthesis. Associated soft tissue swelling is seen. ACT 112: Negative or not required by law. Electronically signed by: Kristofer Henry M.D. 06/27/2022 5:03 PM Pelvis X-Ray 06/27/22 15:47 XR pelvis 1-2V routine, XR femur LT 2V routine CLINICAL HISTORY: fall hip pain TECHNIQUE: A single frontal view of the pelvis was obtained. 2 views of left femur were obtained. Comparison: Comparison is made to CT abdomen pelvis 06/02/2022 and hip radiograph 06/10/2018 FINDINGS: There is an acute fracture of the left proximal diaphysis around the prosthesis. 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 Soft tissue swelling is seen about the knee. Vascular calcifications are seen. IMPRESSION: Displaced fracture of the proximal left femur about the prosthesis. Associated soft tissue swelling is seen. ACT 112: Negative or not required by law. Electronically signed by: Kristofer Henry M.D. 06/27/2022 5:03 PM Hip X-Ray 06/30/22 17:11 LEFT HIP 2 VIEWS CLINICAL HISTORY: Postoperative examination. FINDINGS: AP and crosstable lateral views of the left hip are compared to study dated 06/27/2022. The skeletal structures are osteopenic. A revised left hip arthroplasty with a long femoral stem is in near anatomic alignment. A buttress plate has been placed along the lateral cortex of the proximal femur with numerous cerclage wires. The periprosthetic fracture seen previously is in near- anatomic alignment. Skin clips, soft tissue swelling, and subcutaneous gaseous overlying the left hip represent expected postoperative change. No new fracture is seen. The visualized left hemipelvis appears intact. Advanced atherosclerotic calcification is seen in the left femoral artery. IMPRESSION: Again seen is a periprosthetic fracture of the left proximal femur with interval postoperative change as above. Near-anatomic alignment is maintained. Electronically signed by: Jason Francois M.D. 06/30/2022 10:14 PM (1) Periprosthetic hip fracture Encounter type: initial encounter Qualified Code(s): M97.8XXA - Periprosthetic fracture around other internal prosthetic joint, initial encounter; Z96.649 - Presence of unspecified artificial hip joint
[2022-07-01] MEDS ORDERED: POTASSIUM CHLORIDE 20 MEQ/15 ML UDC PO STA (12:53)
--- NOTE | 2022-07-01 12:59 | Hospitalist Progress Note ---
Date of Service July 01, 2022 Assessment & Plan (1) Acute on chronic anemia: Plan: Postoperative hemoglobin drop to 6.7 Knee dressing removed, surgical site and knee without hematoma/swelling/contusion or signs of bleeding Patient reports he feels generally well, and did engage with good effort with therapy this morning. 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 Patient be medically optimized prior to surgery. - RCRI ~10%, history of both coronary disease and cerebrovascular disease. However does not have any signs or symptoms of unstable angina or congestive heart failure currently I would recommend proceed to surgery but postoperatively have the patient in a monitored setting - Orthopedic consultation placed w [facility] Underwent surgical repair 07/01. Initially delayed due to thrombocytopenia, patient received 2 units of platelet transfusion preoperatively and then 1 unit postoperatively. 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 (3) CAD (coronary artery disease): Plan: - Plavix held perioperatively - Resume antiplatelets postop 24-48hours after doing well. Currently held due to acute on chronic anemia. - Continue statin - Hold valsartan for 24-48 hours postop pending cr and BP (4) Delirium: Plan: Patient with episode of severe waxing waning delirium and agitation evening of 06/29 into 06/30 Does have a history of 1 beer and some wine intake nightly, last drink was more than 4 days ago. Skin is warm and dry and without tachycardia, low susp icion for alcohol withdrawal Caregiver for did ask about pharmacologic treatment of agitation/delirium or even giving a beer nightly, did not recommend this. Can continue melatonin, QT is prolonged so would defer atypical antipsychotic if possible as well. We will add as needed for severe agitation/risk of self, but also counseled on waxing waning nature of hospital delirium, multiple risk factors including pain and admission of several days. Zyprexa 2.5 mg IM as needed for severe agitation/risk of harm to self. Due to borderline QT prolongation needs to be monitored, and will optimize magnesium Delirium precautions (5) CKD (chronic kidney disease): Plan: - CKD 3 - ARB held periop - BMP daily - Renal dosing (6) BPH loc w/o ur obs/LUTS: Plan: Patient with recent phimosis surgery has an indwelling Bob catheter now due to hip fracture Follow [facility] (7) Status post thoracic aortic aneurysm repair: Plan: Patient is secondary risk prevention with Plavix and atorvastatin Plavix is held perioperatively and in the setting of acute on chronic anemia (8) CVA (cerebral vascular accident): Plan DVT prevention Heparin to be undertaken until the patient can have his surgery Admission and Anticipated Discharge Date Admission Date: June 27, 2022 Subjective Seen at bedside. Denies pain at rest, reports does have discomfort in his hip and knee after ambulation. Denies chest pain, chest pressure, lightheadedness, dizziness. Thinks he is in [place], oriented to name otherwise. Somewhat frustrated by removing dressing for exam to check for bleeding, otherwise no acute concerns at bedside. Denies bleeding Review of Systems Review of Systems: All systems reviewed & are unremarkable except as noted in Subjective Physical Exam Physical Exam: General: Oriented to name only. Hard of hearing. Appears frail, but nontoxic HEENT: Atraumatic, normocephalic. Pupils equal and reactive. Vision grossly intact, hard of hearing but hearing grossly intact Pulm: CTAB A&P. -wheezes, -rales, -rhonchi. Symmetrical chest rise. No increase in work of breathing. No respiratory distress. Cardiac: RRR, -mrg. Radial pulses intact and symmetrical. Abdominal: Nontender, nondistended, soft. BS present. Extremities: With postop dressing intact C/D/I, knee dressing removed. No underlying swelling/hematoma/contusion/signs of bleeding soft touch intact in hands and feet bilaterally without asymmetry, PT pulse intact in feet bilaterally. Cap refill at hallux less than 2 seconds bilaterally. Results & Data Results & Data ([facility]) Vital Signs (Past 12 Hours) Vital Signs Temp Pulse Pulse Resp BP BP Pulse Ox 07/01/22 12:39 36.8 C 76 20 151/64 H 97 07/01/22 12:12 36.9 C 72 16 146/65 H 07/01/22 11:20 36.8 C 69 18 145/65 H 96 07/01/22 09:45 07/01/22 07:51 85 07/01/22 07:48 36.8 C 70 20 141/64 H 99 07/01/22 01:24 89 07/01/22 01:45 36.9 C 96 H 22 131/75 94 07/01/22 01:04 36.4 C L 91 H 22 109/59 L 95 O2 Del Method 07/01/22 12:39 07/01/22 12:12 07/01/22 11:20 07/01/22 09:45 Room Air 07/01/22 07:51 07/01/22 07:48 07/01/22 01:24 07/01/22 01:45 07/01/22 01:04 PG Care Time/CCT Total # of Minutes Spent Total Time Spent with Patient: Total time spent is greater than 50% in coordination of care (as documented) at patient's floor/unit and/or counseling patient: Coding Level of Care Code 05800 Subseq Hosp Care Lvl 3 Diagnoses Acute on chronic anemia D64.9 Periprosthetic hip fracture M97.8XXA; Z96.649 Encounter type: initial encounter CAD (coronary artery disease) I25.10 Delirium R41.0 CKD (chronic kidney disease) N18.9 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 Status post thoracic aortic aneurysm repair Z98.890; Z86.79 CVA (cerebral vascular accident) I63.9 CVA mechanism: unspecified (1) Periprosthetic hip fracture Encounter type: initial encounter Qualified Code(s): M97.8XXA - Periprosthetic fracture around other internal prosthetic joint, initial encounter; Z96.649 - Presence of unspecified artificial hip joint (2) CVA (cerebral vascular accident) CVA mechanism: unspecified Qualified Code(s): I63.9 - Cerebral infarction, unspecified
[2022-07-01] MEDS: SODIUM CHLORIDE 0.9% 1000ML 1,000 ML IV SCH (20:15)
[2022-07-01] MEDS: ATORVASTATIN 40 MG TAB PO SCH (20:16)
[2022-07-02 00:44] LABS: Basophils # (auto) 0.04 K/uL (0-0.2); Basophils % (auto) 0.3 %; Eosinophils # (auto) 0.02 K/uL (0-0.50); Eosinophils % (auto) 0.1 %; Immature Granulocytes # (auto) 0.03 K/uL (0.00-0.02); Immature Granulocytes % (auto) 0.2 %; Lymphocytes % (auto) 74.7 %; Mean Corpuscular Hemoglobin 32.4 pg (25.0-34.0); Mean Corpuscular Hgb Conc 34.6 g/dL (32.0-36.0); Mean Corpuscular Volume 93.5 fL (80.0-100.0); Mean Platelet Volume 10.3 fL (9.4-12.4); Monocytes # (auto) 0.51 K/uL (0.24-0.82); Monocytes % (auto) 3.4 %; Neutrophils # (auto) 3.22 K/uL (1.4-6.5); Neutrophils % (auto) 21.3 %; Platelet Count 69 K/uL (130-400); RDW Coefficient of Variation 14.6 % (11.5-14.5); RDW Standard Deviation 50.4 fL (36.4-46.3); Red Blood Count 2.78 M/uL (4.63-6.08); White Blood Count 15.12 K/ul (4.8-10.8)
[2022-07-02] MEDS: ACETAMINOPHEN 500 MG TAB PO SCH ×3 (06:02→21:56)
--- NOTE | 2022-07-02 06:48 | Orthopedic Progress Note ---
Date of Service July 02, 2022 Assessment & Plan (1) Periprosthetic hip fracture: Plan: Postop day 2 status post ORIF left periprosthetic femur fracture; revision left bipolar hemiarthroplasty stem. labs pending PT/OT protocols. Weightbearing as tolerated. DVT prophylaxis -okay to resume heparin twice daily as per Medicine service Pain management as written. orthopedics will sign off at this time, will need a follow up appt with Dr Arroyo at [facility] [place] 12-14 days post op, for appt. d/c instructions placed in patients chart. Admission and Anticipated Discharge Date Admission Date: June 27, 2022 Subjective POD #2 s/p Left Hip Open Reduction Internal Fixation with Hemiarthroplasty Revision Review of Systems Constitutional: no fever and no chills Cardiovascular: no chest pain, no dyspnea and no orthopnea Gastrointestinal: no abdominal pain, no nausea and no vomiting Physical Exam Physical Exam: Dressings are clean, dry, and intact. Calves are soft nontender. Neurovascular is intact. Toes are mobile. Leg lengths appear equal. Results & Data ([facility]) Vital Signs (Past 12 Hours) Vital Signs Temp Pulse Pulse Pulse Resp BP BP 07/02/22 03:45 36.3 C L 73 20 07/01/22 23:10 36.3 C L 74 18 169/68 H 07/01/22 23:05 75 07/01/22 23:05 07/01/22 20:12 37.0 C 66 18 132/58 L 07/01/22 19:31 36.8 C 71 22 150/63 H BP Pulse Ox O2 Del Method 07/02/22 03:45 178/79 H 07/01/22 23:10 07/01/22 23:05 07/01/22 23:05 Room Air 07/01/22 20:12 89 L Room Air 07/01/22 19:31 95 (1) Periprosthetic hip fracture Encounter type: initial encounter Qualified Code(s): M97.8XXA - Merry prosthetic fracture around other internal prosthetic joint, initial encounter; Z96.649 - Presence of unspecified artificial hip joint
[2022-07-02 07:47] LABS: BUN Creatinine Ratio 28.7 (10-20); Calcium 8.6 mg/dl (8.5-10.1); Creatinine Clr Calc Pharmacy 48.5 ml/min; Est GFR (African American) 85.9 ml/min; Est GFR (Non-African American) 74.2 ml/min; Potassium 3.1 mmol/L (3.5-5.1)
[2022-07-02 07:49] LABS: Basophils # (auto) 0.04 K/uL (0-0.2); Basophils % (auto) 0.3 %; Eosinophils # (auto) 0.03 K/uL (0-0.50); Eosinophils % (auto) 0.2 %; Hematocrit (blood only) 25.3 % (40.1-51.0); Hemoglobin 8.9 g/dl (14.0-18.0); Immature Granulocytes # (auto) 0.02 K/uL (0.00-0.02); Immature Granulocytes % (auto) 0.1 %; Lymphocytes # (auto) 10.56 K/uL (1.2-3.4); Lymphocytes % (auto) 70.9 %; Mean Corpuscular Hemoglobin 32.4 pg (25.0-34.0); Mean Corpuscular Hgb Conc 35.2 g/dL (32.0-36.0); Mean Platelet Volume 10.6 fL (9.4-12.4); Monocytes # (auto) 0.56 K/uL (0.24-0.82); Monocytes % (auto) 3.8 %; Neutrophils # (auto) 3.69 K/uL (1.4-6.5); Neutrophils % (auto) 24.7 %; Platelet Count 70 K/uL (130-400); RDW Coefficient of Variation 14.8 % (11.5-14.5); RDW Standard Deviation 49.8 fL (36.4-46.3); Red Blood Count 2.75 M/uL (4.63-6.08)
[2022-07-02] MEDS: FINASTERIDE 5 MG TAB PO SCH (10:53)
[2022-07-02] MEDS: CHOLECALCIFEROL 1,000 UNITS 25 MCG TAB PO SCH (10:53)
[2022-07-02] MEDS: CALCIUM 600MG + VIT D 400 IU TAB PO SCH ×2 (10:53→21:55)
[2022-07-02] MEDS: TAMSULOSIN HCL 0.4 MG CAP PO SCH (10:53)
[2022-07-02] MEDS: POTASSIUM CHLORIDE CRTAB 20 MEQ TABCR PO SCH ×3 (11:48→21:56)
--- NOTE | 2022-07-02 13:17 | CT Scan Report ---
CT SCAN OF THE BRAIN WITHOUT IV CONTRAST CLINICAL HISTORY: Fall. Change in mental status. COMPARISON STUDY: CT of the brain dated 04/29/2022. TECHNIQUE: Unenhanced axial CT scan of the brain is performed from the vertex to the skull base. A do se lowering technique was utilized adhering to the principles of ALARA. CT DOSE: 614.27 mGy.cm FINDINGS: Brain parenchyma: There is age-related involutional change noting moderate to advanced subcortical an d periventricular microangiopathic disease. There is no hemorrhage, mass effect, or evidence of acute territorial ischemia by CT criteria. Chronic lacunar infarcts are noted in the right basal ganglia a nd the left caudate head. Spencer-white matter differentiation is preserved. No extra-axial fluid collec tion is seen. Ventricles, sulci, cisterns: Prominent secondary to involutional change. Intracranial vasculature: There is atherosclerotic calcification of the cavernous carotid and vertebr al arteries. Calvarium: The skeletal structures are osteopenic. No depressed calvarial fracture is seen. Sinuses and mastoids: The visualized paranasal sinuses are clear. The mastoid air cells are well pneu matized. Orbits: The bony orbits are grossly intact. There are bilateral ocular lens implants. IMPRESSION: There is no hemorrhage, mass effect, or evidence of acute territorial ischemia by CT jennie ledesma. ACT 112: Negative or not required by law. Electronically signed by: Jason Francois M.D. 07/02/2022 1:15 PM
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
[2022-07-02 17:59] LABS: Appearance Urine Clear (Clear); Bacteria Urine Automated Negative (Negative); Bilirubin Urine Negative (Negative); Blood Urine 3+ (Negative); Color Urine Orange; Epithelial Cell Urine Auto >30 /lpf (0-5); Glucose Urine UA 2+ (Negative); Ketones Urine 1+ (Negative); Leukocyte Esterase Urine Trace (Negative); Nitrite Urine Negative (Negative); Protein Urine 2+ (Negative); RBC Urine Automated >30 /hpf (0-4); Specific Gravity Urine 1.023 (1.000-1.030); Urobilinogen Urine Negative (Negative)
--- NOTE | 2022-07-02 18:47 | XRay Report ---
SINGLE VIEW CHEST CLINICAL HISTORY: Change in mental status. FINDINGS: An AP, portable, upright chest radiograph is compared to study dated 06/27/2022 and correlat ed with chest CT dated 06/02/2022. The heart is enlarged. The pulmonary vasculature is noncongested. Th ere is a sclerotic calcification of the thoracic ureter within his medical dilatation and a stent gra ft in place. This is unchanged from previous. There is emphysema with chronic interstitial thickening . There is unchanged elevation right hemidiaphragm. There is bibasilar consolidation, left greater th an right. Small pleural effusions are suspected. No pneumothorax is seen. The skeletal structures are osteopenic. The bony thorax is grossly intact. IMPRESSION: 1. Cardiomegaly and emphysema without radiographic evidence of congestive failure. 2. There is bibasilar consolidation, left greater than right which is new from 06/27/2022. Correlate c linically for evidence of pneumonia/aspiration pneumonitis. Radiographic follow-up to resolution is r ecommended. 3. Suspect small pleural effusions ACT 112: Negative or not required by law. Electronically signed by: Jason Francois M.D. 07/02/2022 6:45 PM
--- NOTE | 2022-07-02 19:37 | XRay Report ---
KUB CLINICAL HISTORY: Change in mental status. Fecal impaction. FINDINGS: 2 AP, portable, supine abdominal radiographs are correlated with abdominal CT dated 2. There is a nonobstructed abdominal bowel gas pattern. There is rectosigmoid fecal impaction and mo derate constipation. No evidence of intraperitoneal free air is seen on these supine images. No abnor mal abdominal calcifications are identified. Vascular calcifications are seen in the pelvis. The skel etal structures are osteopenic and appear intact. Bilateral hip arthroplasties are in place. Skin cli ps project over the left hip. An aortic stent graft is partially visualized in the thoracic aorta. Ca rdiomegaly is noted. IMPRESSION: 1. Rectosigmoid fecal impaction and moderate constipation. 2. No bowel obstruction is seen. Electronically signed by: Jason Francois M.D. 07/02/2022 7:36 PM
[2022-07-02] MEDS ORDERED: bisacodyL 10 MG SUPP PR STA (20:26)
[2022-07-02] MEDS: ATORVASTATIN 40 MG TAB PO SCH (21:55)
[2022-07-02] MEDS: POLYETHYLENE (MIRALAX) 17 GM PACK PO SCH (22:21)
[2022-07-03] MEDS: ACETAMINOPHEN 500 MG TAB PO SCH ×3 (05:33→20:05)
[2022-07-03] MEDS ORDERED: APIXABAN 2.5 MG TAB PO ONE (09:45)
[2022-07-03 10:17] LABS: Anion Gap 6 (3-11); BUN Creatinine Ratio 37.8 (10-20); Blood Urea Nitrogen 34 mg/dl (6-23); Calcium 9.1 mg/dl (8.5-10.1); Carbon Dioxide 23 mmol/L (21-32); Chloride 111 mmol/L (98-107); Creatinine Clr Calc Pharmacy 48.1 ml/min; Est GFR (African American) 90.6 ml/min; Est GFR (Non-African American) 78.2 ml/min; Glucose 165 mg/dl (70-99(Fasting)); Potassium 3.4 mmol/L (3.5-5.1); Sodium 140 mmol/L (136-145)
[2022-07-03] MEDS: FINASTERIDE 5 MG TAB PO SCH (10:20)
[2022-07-03] MEDS: TAMSULOSIN HCL 0.4 MG CAP PO SCH (10:20)
[2022-07-03] MEDS: CALCIUM 600MG + VIT D 400 IU TAB PO SCH ×2 (10:20→20:08)
[2022-07-03] MEDS: POLYETHYLENE (MIRALAX) 17 GM PACK PO SCH ×3 (10:20→20:08)
[2022-07-03] MEDS: CHOLECALCIFEROL 1,000 UNITS 25 MCG TAB PO SCH (10:20)
[2022-07-03] MEDS: POTASSIUM CHLORIDE CRTAB 20 MEQ TABCR PO SCH ×3 (10:23→20:06)
[2022-07-03] MEDS: VALSARTAN 80 MG TAB PO SCH (10:23)
[2022-07-03 10:24] LABS: Magnesium 2.1 mg/dl (1.7-2.4); Phosphorus < 1.0 mg/dl (2.5-4.9)
[2022-07-03] MEDS ORDERED: POTASSIUM PHOS 3 MMOL/1 ML INFUSION IV STA (10:36)
[2022-07-03 10:47] LABS: Basophils # (auto) 0.04 K/uL (0-0.2); Basophils % (auto) 0.2 %; Eosinophils # (auto) 0.08 K/uL (0-0.50); Eosinophils % (auto) 0.4 %; Hematocrit (blood only) 27.2 % (40.1-51.0); Hemoglobin 9.3 g/dl (14.0-18.0); Immature Granulocytes # (auto) 0.05 K/uL (0.00-0.02); Immature Granulocytes % (auto) 0.2 %; Lymphocytes # (auto) 15.05 K/uL (1.2-3.4); Lymphocytes % (auto) 70.4 %; Mean Corpuscular Hemoglobin 32.5 pg (25.0-34.0); Mean Corpuscular Hgb Conc 34.2 g/dL (32.0-36.0); Mean Corpuscular Volume 95.1 fL (80.0-100.0); Mean Platelet Volume 10.3 fL (9.4-12.4); Monocytes # (auto) 0.75 K/uL (0.24-0.82); Monocytes % (auto) 3.5 %; Neutrophils % (auto) 25.3 %; Platelet Count 92 K/uL (130-400); Platelet Estimate Decreased (Normal); RDW Coefficient of Variation 14.6 % (11.5-14.5); RDW Standard Deviation 50.4 fL (36.4-46.3); Red Blood Count 2.86 M/uL (4.63-6.08); Smudge Cells Present; White Blood Count 21.37 K/ul (4.8-10.8)
[2022-07-03] MEDS ORDERED: POTASSIUM PHOSPHATE 21 MMOL in SODIUM CHLORIDE 0.9% 500 ML IV ONE (11:00)
--- NOTE | 2022-07-03 11:31 | Hospitalist Progress Note ---
Date of Service July 03, 2022 Assessment & Plan (1) Altered mental state: Plan: Worsening confusion despite no opiates since 06/30 Reportedly no prior history of dementia Will hold his melatonin Much improved today from yesterday CT head - unremarkable for for acute changes - moderate to advanced subcortical and periventricular microangiopathic disease CXR - possible right > left consolidation, will have speech evaluate for aspiration, WBC worsening however mentation much improved therefore will defer antibiotics KUB - significant fecal impaction, now yet had a BM, will continue MiraLAX 17g TID and repeat Bisacodyl supp. tomorrow. (2) Delirium: Plan: as above Delirium precautions (3) Acute on chronic anemia: Plan: Iron def. anemia Postoperative hemoglobin drop to 6.7 s/p 2 units packed RBCs, 3 platelets -> Hgb 8.9 Transferrin sats: 8.5% Platelet count 92 - repeat CBC in AM (4) Periprosthetic hip fracture: Plan: - RCRI ~10%, history of both coronary disease and cerebrovascular disease. However does not have any signs or symptoms of unstable angina or congestive heart failure currently I would recommend proceed to surgery but postoperatively have the patient in a monitored setting - Orthopedic consultation placed w [facility] Underwent surgical repair 07/01. Initially delayed due to thrombocytopenia, patient received 2 units of platelet transfusion preoperatively and then 1 unit postoperatively. 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 (5) CAD (coronary artery disease): Plan: - Plavix held perioperatively. Since patient will be on apixaban this should be adequate without clopidogrel for CAD. - Continue statin - Restart on valsartan (6) CKD (chronic kidney disease): Plan: - CKD 3 - ARB held periop - BMP daily - Renal dosing (7) BPH loc w/o ur obs/LUTS: Plan: Patient with recent phimosis surgery has an indwelling Bob catheter now due to hip fracture Follow [facility] (8) Status post thoracic aortic aneurysm repair: Plan: Patient is secondary risk prevention with Plavix and atorvastatin Plavix is held perioperatively and in the setting of acute on chronic anemia (9) CVA (cerebral vascular accident): (10) Constipation: Plan VTE Prophyalxs - Plt > 50, can restart on apixaban as ordered by orthopedics Diet - regular, speech consult ordered Disposition - continued admission on med/tele pending improvement in mentation Admission and Anticipated Discharge Date Admission Date: June 27, 2022 Subjective Much less confused today. Out of bed to chair. Not yet had a bowel movement. Appears to be alert and orientated to place and person. No significant pain. Review of Systems Review of Systems: All systems reviewed & are unremarkable except as noted in Subjective Physical Exam Constitutional: WD/WN, vitals as above Respiratory: normal respiratory effort, lungs clear to auscultation Cardiovascular: RRR, no murmur, no edema Gastrointestinal (Abdomen): normal bowel sounds, soft, nontender, no hepatosplenomegaly Neurologic: moves all extremities and awake; not confused Psychiatric: Orientation: alert; + not oriented x 3 Genitourinary: no CVA tenderness Results & Data Results & Data ([facility]) Vital Signs (Past 12 Hours) Vital Signs Temp Pulse Resp BP Pulse Ox O2 Del Method O2 Flow Rate 07/03/22 10:39 Nasal Cannula 2 07/03/22 07:28 37.0 C 67 16 178/70 H 95 07/03/22 03:10 36.6 C 63 20 163/70 H 96 Room Air 07/03/22 00:23 Room Air PG Care Time/CCT Total # of Minutes Spent Total Time Spent with Patient: Total time spent is greater than 50% in coordination of care (as documented) at patient's floor/unit and/or counseling patient: Coding Level of Care Code 04780 Subseq Hosp Care Lvl 2 Diagnoses Altered mental state R41.82 Delirium R41.0 Acute on chronic anemia D64.9 Periprosthetic hip fracture M97.8XXA; Z96.649 Encounter type: initial encounter CAD (coronary artery disease) I25.10 CKD (chronic kidney disease) N18.9 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 Status post thoracic aortic aneurysm repair Z98.890; Z86.79 CVA (cerebral vascular accident) I63.9 CVA mechanism: unspecified Constipation K59.00 (1) Periprosthetic hip fracture Encounter type: initial encounter Qualified Code(s): M97.8XXA - Periprosthetic fracture around other internal prosthetic joint, initial encounter; Z96.649 - Presence of unspecified artificial hip joint (2) CVA (cerebral vascular accident) CVA mechanism: unspecified Qualified Code(s): I63.9 - Cerebral infarction, unspecified
[2022-07-03] MEDS: APIXABAN 2.5 MG TAB PO SCH (20:07)
[2022-07-03] MEDS: ATORVASTATIN 40 MG TAB PO SCH (20:08)
[2022-07-04] MEDS: ACETAMINOPHEN 500 MG TAB PO SCH ×3 (05:53→20:22)
[2022-07-04] MEDS ORDERED: bisacodyL 10 MG SUPP PR ONE (07:00)
[2022-07-04 08:06] LABS: Hematocrit (blood only) 29.1 % (40.1-51.0); Hemoglobin 9.6 g/dl (14.0-18.0); Mean Corpuscular Hemoglobin 31.8 pg (25.0-34.0); Mean Corpuscular Volume 96.4 fL (80.0-100.0); Mean Platelet Volume 10.6 fL (9.4-12.4); Platelet Count 123 K/uL (130-400); RDW Coefficient of Variation 14.5 % (11.5-14.5); RDW Standard Deviation 51.1 fL (36.4-46.3); Red Blood Count 3.02 M/uL (4.63-6.08); White Blood Count 22.29 K/ul (4.8-10.8)
[2022-07-04 08:23] LABS: BUN Creatinine Ratio 30.3 (10-20); Calcium 9.5 mg/dl (8.5-10.1); Creatinine Clr Calc Pharmacy 48.3 ml/min; Est GFR (Non-African American) 78.5 ml/min; Potassium 3.7 mmol/L (3.5-5.1)
[2022-07-04 08:33] LABS: Basophils # (auto) 0.06 K/uL (0-0.2); Basophils % (auto) 0.3 %; Eosinophils # (auto) 0.14 K/uL (0-0.50); Eosinophils % (auto) 0.6 %; Immature Granulocytes # (auto) 0.06 K/uL (0.00-0.02); Immature Granulocytes % (auto) 0.3 %; Lymphocytes # (auto) 15.75 K/uL (1.2-3.4); Lymphocytes % (auto) 70.7 %; Monocytes # (auto) 0.74 K/uL (0.24-0.82); Monocytes % (auto) 3.3 %; Neutrophils # (auto) 5.54 K/uL (1.4-6.5); Neutrophils % (auto) 24.8 %; Polychromasia 1+; Smudge Cells Present
[2022-07-04 08:56] LABS: Magnesium 1.8 mg/dl (1.7-2.4); Phosphorus 1.3 mg/dl (2.5-4.9)
[2022-07-04] MEDS: CALCIUM 600MG + VIT D 400 IU TAB PO SCH ×2 (09:19→20:22)
[2022-07-04] MEDS: VALSARTAN 80 MG TAB PO SCH (09:20)
[2022-07-04] MEDS: TAMSULOSIN HCL 0.4 MG CAP PO SCH (09:20)
[2022-07-04] MEDS: FINASTERIDE 5 MG TAB PO SCH (09:20)
[2022-07-04] MEDS: APIXABAN 2.5 MG TAB PO SCH ×2 (09:20→20:21)
[2022-07-04] MEDS: CHOLECALCIFEROL 1,000 UNITS 25 MCG TAB PO SCH (09:20)
[2022-07-04] MEDS: POLYETHYLENE (MIRALAX) 17 GM PACK PO SCH ×3 (09:20→20:23)
[2022-07-04] MEDS: POTASSIUM CHLORIDE CRTAB 20 MEQ TABCR PO SCH (09:21)
[2022-07-04] MEDS: AMPICILLIN/SULBACTAM SOD 3,000 MG in 0.9 % SODIUM CHLORIDE 100 ML IV SCH ×3 (09:25→23:47)
[2022-07-04] MEDS ORDERED: POTASSIUM PHOS 3 MMOL/1 ML INFUSION IV STA (09:34)
[2022-07-04] MEDS ORDERED: POTASSIUM PHOSPHATE 21 MMOL in SODIUM CHLORIDE 0.9% 500 ML IV ONE (09:45)
[2022-07-04] MEDS: ATORVASTATIN 40 MG TAB PO SCH (20:22)
--- NOTE | 2022-07-04 20:23 | Hospitalist Progress Note ---
Date of Service July 04, 2022 Assessment & Plan (1) Altered mental state: Plan: Confusion appear very intermittent Reportedly no prior history of dementia although he does have a carer Much improved today from [address] head - unremarkable for for acute changes - moderate to advanced subcortical and periventricular microangiopathic disease CXR - possible right > left consolidation, will have speech evaluate for aspiration, WBC increasing is mostly lymphocytes related to his CLL however given mentation far off basleine will start Unasyn for this KUB - significant fecal impaction, now having regular bowel movements with MiraLax Phosphate < 1 possibly contributing (2) Hypophosphatemia: Plan: Possibly was contributing towards metabolic encephalopathy IV 21 mmol K Phos given yesterday and today Will recheck tomorrow. Would not discharge until this is adequately dealt with Will need oral replacement on discharge as his appetite improves (3) Delirium: Plan: as above Delirium precautions (4) Acute on chronic anemia: Plan: Iron def. anemia Postoperative hemoglobin drop to 6.7 s/p 2 units packed RBCs, 3 platelets -> Hgb 8.9 Transferrin sats: 8.5% Platelet count 92 - stable at 9.6, Plt increased to 123 (5) Periprosthetic hip fracture: Plan: - RCRI ~10%, history of both coronary disease and cerebrovascular disease. However does not have any signs or symptoms of unstable angina or congestive heart failure currently I would recommend proceed to surgery but postoperatively have the patient in a monitored setting - Orthopedic consultation placed w [facility] Underwent surgical repair 07/01. Initially delayed due to thrombocytopenia. - Patient has CLL, but no ITP. (6) CAD (coronary artery disease): Plan: - Plavix held perioperatively. Since patient will be on apixaban this should be adequate without clopidogrel for CAD. - Continue statin - Restarted on valsartan (7) BPH loc w/o ur obs/LUTS: Plan: Bob now removed, monitor for urinary retention (8) Status post thoracic aortic aneurysm repair: Plan: Patient is secondary risk prevention with Plavix and atorvastatin Plavix is held perioperatively and in the setting of acute on chronic anemia (9) CVA (cerebral vascular accident): Plan: History of CVA (10) Constipation: Plan: Resolved with MiraLAX Plan VTE Prophyalxs - apixaban as order by orthopedics Diet - regular, speech consult ordered Disposition - continued admission on med/tele pending improvement in mentation and phosphorus replacement Admission and Anticipated Discharge Date Admission Date: June 27, 2022 Subjective Very fluctuent mental state throughout today. Requiring mitts overnight and one to one this morning but much better later in the day. Now having regular bowel movements. Review of Systems Review of Systems: All systems reviewed & are unremarkable except as noted in Subjective Physical Exam Constitutional: WD/WN, vitals as above Respiratory: normal respiratory effort, lungs clear to auscultation Cardiovascular: RRR, no murmur, no edema Gastrointestinal (Abdomen): normal bowel sounds, soft, nontender, no hepatosplenomegaly Neurologic: moves all extremities and awake; not confused Psychiatric: Orientation: alert; + not oriented x 3 Genitourinary: no CVA tenderness Results & Data Results & Data ([facility]) Vital Signs (Past 12 Hours) Vital Signs Temp Pulse Resp BP Pulse Ox O2 Del Method 07/04/22 11:59 36.7 C 70 22 162/74 H 98 Room Air PG Care Time/CCT Total # of Minutes Spent Total Time Spent with Patient: Total time spent is greater than 50% in coordination of care (as documented) at patient's floor/unit and/or counseling patient: Coding Level of Care Code 52897 Subseq Hosp Care Lvl 2 Diagnoses Altered mental state R41.82 Hypophosphatemia E83.39 Delirium R41.0 Acute on chronic anemia D64.9 Periprosthetic hip fracture M97.8XXA; Z96.649 Encounter type: initial encounter CAD (coronary artery disease) I25.10 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 Status post thoracic aortic aneurysm repair Z98.890; Z86.79 CVA (cerebral vascular accident) I63.9 CVA mechanism: unspecified Constipation K59.00 (1) Periprosthetic hip fracture Encounter type: initial encounter Qualified Code(s): M97.8XXA - Periprosthetic fracture around other internal prosthetic joint, initial encounter; Z96.649 - Presence of unspecified artificial hip joint (2) CVA (cerebral vascular accident) CVA mechanism: unspecified Qualified Code(s): I63.9 - Cerebral infarction, unspecified
[2022-07-05] MEDS: AMPICILLIN/SULBACTAM SOD 3,000 MG in 0.9 % SODIUM CHLORIDE 100 ML IV SCH ×3 (05:51→17:03)
[2022-07-05] MEDS: ACETAMINOPHEN 500 MG TAB PO SCH ×3 (05:51→20:45)
[2022-07-05 06:50] LABS: Hematocrit (blood only) 27.5 % (40.1-51.0); Hemoglobin 9.5 g/dl (14.0-18.0); Mean Corpuscular Hemoglobin 32.6 pg (25.0-34.0); Mean Corpuscular Hgb Conc 34.5 g/dL (32.0-36.0); Mean Corpuscular Volume 94.5 fL (80.0-100.0); Mean Platelet Volume 11.1 fL (9.4-12.4); Platelet Count 130 K/uL (130-400); RDW Coefficient of Variation 14.2 % (11.5-14.5); RDW Standard Deviation 48.9 fL (36.4-46.3); Red Blood Count 2.91 M/uL (4.63-6.08); White Blood Count 22.36 K/ul (4.8-10.8)
[2022-07-05 06:57] LABS: BUN Creatinine Ratio 27.6 (10-20); Calcium 9.4 mg/dl (8.5-10.1); Creatinine Clr Calc Pharmacy 49.4 ml/min; Est GFR (African American) 91.9 ml/min; Est GFR (Non-African American) 79.3 ml/min; Magnesium 1.7 mg/dl (1.7-2.4); Phosphorus 1.7 mg/dl (2.5-4.9); Potassium 3.4 mmol/L (3.5-5.1)
[2022-07-05 07:29] LABS: Basophils # (auto) 0.05 K/uL (0-0.2); Basophils % (auto) 0.2 %; Eosinophils # (auto) 0.27 K/uL (0-0.50); Eosinophils % (auto) 1.2 %; Immature Granulocytes # (auto) 0.05 K/uL (0.00-0.02); Immature Granulocytes % (auto) 0.2 %; Lymphocytes # (auto) 16.14 K/uL (1.2-3.4); Lymphocytes % (auto) 72.2 %; Monocytes # (auto) 0.78 K/uL (0.24-0.82); Monocytes % (auto) 3.5 %; Neutrophils # (auto) 5.07 K/uL (1.4-6.5); Neutrophils % (auto) 22.7 %; Polychromasia 1+; Smudge Cells Present
[2022-07-05] MEDS: APIXABAN 2.5 MG TAB PO SCH ×2 (08:10→20:47)
[2022-07-05] MEDS: FINASTERIDE 5 MG TAB PO SCH (08:10)
[2022-07-05] MEDS: CHOLECALCIFEROL 1,000 UNITS 25 MCG TAB PO SCH (08:10)
[2022-07-05] MEDS: TAMSULOSIN HCL 0.4 MG CAP PO SCH (08:10)
[2022-07-05] MEDS: CALCIUM 600MG + VIT D 400 IU TAB PO SCH ×2 (08:10→20:46)
[2022-07-05] MEDS: VALSARTAN 80 MG TAB PO SCH (08:12)
[2022-07-05] MEDS: POLYETHYLENE (MIRALAX) 17 GM PACK PO SCH ×3 (08:13→20:48)
--- NOTE | 2022-07-05 09:04 | Hospitalist Progress Note ---
Date of Service July 05, 2022 Assessment & Plan (1) Altered mental state: Plan: Confusion on admission, does appear very intermittent and during my interview today was able to carry on a appropriate conversation. Reportedly no prior history of dementia although he does have a caregiver. 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 CXR - possible right > left consolidation, will have speech evaluate for aspiration, WBC increasing is mostly lymphocytes related to his CLL however given mentation far off baseline Unasyn was started. To continue for community- acquired pneumonia for total of 7 days. KUB - significant fecal impaction, now having regular bowel movements with MiraLax. This also could have contributed to confusion. Phosphate < 1 possibly contributing; replacement ordered with repeat level of 1.7, still low but much improved from <1.0 on 07/03. We will give further doses of potassium phosphate with repeat phosphate in the morning. (2) Hypophosphatemia: Plan: Possibly was contributing towards metabolic encephalopathy. K Phos 21 mmol given on 07/03 and 07/04; 15mmol given today. Ultimately will need oral supplement on discharge. (3) Periprosthetic hip fracture: Plan: - Orthopedic consultation placed w [facility] Underwent surgical repair 07/01. Initially delayed due to thrombocytopenia and cardiology clearance. (4) Acute on chronic anemia: Plan: - History of iron deficiency anemia. Postoperative hemoglobin drop to 6.7 s/p 2 units packed RBCs, 3 platelets -> Hgb 8.9. Transferrin sats: 8.5%. Platelet count 92. - stable at 9.5, Plt increased to 130. (5) CAD (coronary artery disease): Plan: - Plavix discontinued in favor of Eliquis. - Continue statin. - Continue valsartan. (6) CLL (chronic lymphocytic leukemia): Plan: Patient with a history of CLL. He was started on chlorambucil by Dr. Disla in October 2021 due to significant leukocytosis. This medication was discontinued several months ago. WBC count this admission of 22,000; no clear evidence of infection, however it is possible that patient had aspiration pneumonia instead of pneumonitis so Unasyn was started. 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 Plan for active treatment of CLL upon discharge. Patient follows with Dr. Ly. (7) Delirium: Plan: as above. Delirium precautions. (8) BPH loc w/o ur obs/LUTS: Plan: - No evidence of urinary retention at this time. - Urinary catheter was removed on 07/03 without incident. (9) CVA (cerebral vascular accident): Plan: - History of CVA. - Continue statin and BP control. (10) Constipation: Plan: - Resolved with MiraLAX. MiraLAX is ordered scheduled 3 times daily with other doses as needed for continued constipation. Plan CODE STATUS: Full code Diet: Regular easy to chew diet DVT prophylaxis: Eliquis 2.5 twice daily Med/telemetry; as patient continues to improve with regard to his mental status will have physical and Occupational Therapy evaluate him for likely placement following discharge Admission and Anticipated Discharge Date Admission Date: June 27, 2022 Subjective Patient without any acute events overnight. This morning reports he is "hanging in there". Does report some hip pain but well controlled with as needed medications. Does not endorse any chest pain or trouble breathing. Does not endorse any nausea or vomiting, diarrhea. Review of Systems Review of Systems: All systems reviewed & are unremarkable except as noted in Subjective Physical Exam Constitutional: WD/WN, vitals as above Respiratory: normal respiratory effort, lungs clear to auscultation Cardiovascular: RRR, no murmur, no edema Gastrointestinal (Abdomen): normal bowel sounds, soft, nontender, no hepatosplenomegaly Skin: no rashes, warm and dry Psychiatric: Alert, oriented to time, place, person. On different visits patient does have periods of confusion but is redirectable. Patient able to follow complex commands and answer complex questions today Results & Data Results & Data ([facility]) Vital Signs (Past 12 Hours) Vital Signs Temp Pulse Resp BP Pulse Ox O2 Del Method 07/05/22 08:07 36.7 C 65 18 169/74 H 96 Room Air 07/05/22 00:44 Room Air 07/04/22 23:06 37 C 66 18 153/69 H 97 Room Air PG Care Time/CCT Total # of Minutes Spent Total Time Spent with Patient: Total time spent is greater than 50% in coordination of care (as documented) at patient's floor/unit and/or counseling patient: Coding Level of Care Code 22494 Subseq Hosp Care Lvl 3 Diagnoses Altered mental state R41.82 Hypophosphatemia E83.39 Periprosthetic hip fracture M97.8XXA; Z96.649 Encounter type: initial encounter Acute on chronic anemia D64.9 CAD (coronary artery disease) I25.10 CLL (chronic lymphocytic leukemia) C91.90 Delirium R41.0 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 CVA (cerebral vascular accident) I63.9 CVA mechanism: unspecified Constipation K59.00 (1) Periprosthetic hip fracture Encounter type: initial encounter Qualified Code(s): M97.8XXA - Periprosthetic fracture around other internal prosthetic joint, initial encounter; Z96.649 - Presence of unspecified artificial hip joint (2) CVA (cerebral vascular accident) CVA mechanism: unspecified Qualified Code(s): I63.9 - Cerebral infarction, unspecified
[2022-07-05] MEDS ORDERED: POTASSIUM PHOS 3 MMOL/1 ML INFUSION IV STA (18:58)
[2022-07-05] MEDS ORDERED: POTASSIUM PHOSPHATE 15 MMOL in DEXTROSE 5% 250 ML IV ONE (19:30)
[2022-07-05] MEDS: ATORVASTATIN 40 MG TAB PO SCH (20:46)
[2022-07-06] MEDS: AMPICILLIN/SULBACTAM SOD 3,000 MG in 0.9 % SODIUM CHLORIDE 100 ML IV SCH ×4 (00:09→17:30)
[2022-07-06] MEDS: ACETAMINOPHEN 500 MG TAB PO SCH ×3 (06:01→21:00)
[2022-07-06 06:53] LABS: Hematocrit (blood only) 30.5 % (40.1-51.0); Hemoglobin 10.2 g/dl (14.0-18.0); Mean Corpuscular Hemoglobin 31.7 pg (25.0-34.0); Mean Corpuscular Hgb Conc 33.4 g/dL (32.0-36.0); Mean Corpuscular Volume 94.7 fL (80.0-100.0); Mean Platelet Volume 10.4 fL (9.4-12.4); Platelet Count 141 K/uL (130-400); RDW Coefficient of Variation 13.9 % (11.5-14.5); RDW Standard Deviation 48.1 fL (36.4-46.3); Red Blood Count 3.22 M/uL (4.63-6.08); White Blood Count 23.13 K/ul (4.8-10.8)
[2022-07-06 06:56] LABS: Calcium 9.6 mg/dl (8.5-10.1); Creatinine Clr Calc Pharmacy 46.8 ml/min; Est GFR (African American) 88.2 ml/min; Est GFR (Non-African American) 76.1 ml/min; Magnesium 1.8 mg/dl (1.7-2.4); Phosphorus 2.3 mg/dl (2.5-4.9); Potassium 3.3 mmol/L (3.5-5.1)
[2022-07-06] MEDS: POLYETHYLENE (MIRALAX) 17 GM PACK PO SCH ×3 (08:05→20:00)
[2022-07-06] MEDS: FINASTERIDE 5 MG TAB PO SCH (08:06)
[2022-07-06] MEDS: CALCIUM 600MG + VIT D 400 IU TAB PO SCH ×2 (08:06→20:00)
[2022-07-06] MEDS: VALSARTAN 80 MG TAB PO SCH (08:06)
[2022-07-06] MEDS: CHOLECALCIFEROL 1,000 UNITS 25 MCG TAB PO SCH (08:06)
[2022-07-06] MEDS: APIXABAN 2.5 MG TAB PO SCH ×2 (08:06→20:00)
[2022-07-06] MEDS: TAMSULOSIN HCL 0.4 MG CAP PO SCH (08:06)
--- NOTE | 2022-07-06 09:10 | Hospitalist Progress Note ---
Date of Service July 06, 2022 Assessment & Plan (1) Altered mental state: Plan: Confusion on admission, does appear very intermittent and during my interview today was able to carry on a appropriate conversation. Reportedly no prior history of dementia although he does have a caregiver. 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 CXR - possible right > left consolidation, pneumonitis versus pneumonia. Leukocytosis/lymphocytosis related to his CLL however given mentation far off baseline Unasyn was started x3 days. Suspect more likely to be pneumonitis than pneumonia, patient without oxygen need, no change in leukocytosis from baseline, no increased neutrophils (history of CLL). Antibiotics were discontinued on 07/06. Speech therapy evaluated patient and did not witness aspiration events. No changes to diet at this time, but can consider video swallow study in the outpatient setting if he were to develop recurrent pneumonia/pneumonitis in the future. KUB - significant fecal impaction, now having regular bowel movements with MiraLax. This also could have been a large contributor to confusion. Phosphate < 1 possibly contributing; replacement ordered with repeat level of 1.7, still low but much improved from <1.0 on 07/03. We will give further doses of potassium phosphate with repeat phosphate in the morning. (2) Hypophosphatemia: Plan: Possibly was contributing towards metabolic encephalopathy. K Phos 21 mmol given on 07/03 and 07/04; 15mmol given 07/05. Potassium phosphate 1 table QID started today. (3) Periprosthetic hip fracture: Plan: Orthopedic consultation placed w [facility]. Underwent surgical repair 07/01. Initially delayed due to thrombocytopenia and Cardiology clearance. Continue PT and OT; detention facility recommended on discharge (4) Acute on chronic anemia: Plan: History of iron deficiency anemia. Postoperative hemoglobin drop to 6.7 s/p 2 units packed RBCs, 3 units platelets -> Hgb 8.9. Hemoglobin stable at 10.2 and platelets increased to 140s. (5) CAD (coronary artery disease): Plan: Plavix discontinued in favor of Eliquis. Continue statin. Continue valsartan. (6) CLL (chronic lymphocytic leukemia): Plan: Patient with a history of CLL. He was started on chlorambucil by Dr. Disla in October 2021 due to significant leukocytosis. This medication was discontinued several months ago. WBC count this admission of 22,000; no clear evidence of infection; patient was briefly on Unasyn for aspiration pneumonitis versus pneumonia, however antibiotics were discontinued as patient does not have any oxygen demand or respiratory complaints suggestive of pneumonia. 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 Stable today at 140. Plan for active treatment of CLL upon discharge. Patient follows with Dr. Ly. Daily CBC. (7) Delirium: Plan: as above. Delirium precautions. (8) BPH loc w/o ur obs/LUTS: Plan: - No evidence of urinary retention at this time. - Urinary catheter was removed on 07/03 without incident. (9) CVA (cerebral vascular accident): Plan: - History of CVA. - Continue statin and BP control. (10) Constipation: Plan: - Resolved with MiraLAX. MiraLAX is ordered scheduled twice daily with other doses as needed for continued constipation. Plan CODE STATUS: Full code Diet: Regular easy to chew diet DVT prophylaxis: Eliquis 2.5 twice daily Dispo: Med/Surg; for SNF on discharge Admission and Anticipated Discharge Date Admission Date: June 27, 2022 Subjective Overnight patient was a little bit restless and agitated asking for a shirt and pants. This morning patient is alert and oriented, complaining of a little bit of left hip pain but otherwise feels well. Discussed patient with primary/HIPAA contact who reports that Randal is feeling very frustrated about the slow pace at which he is recovering from this hip replacement, when he had a much quicker return to function with his other hip replacements. I explained to Randal that because this was a periprosthetic fracture and because of his CLL/other comorbidities he may have a longer recovery this time around. Review of Systems Constitutional: no fever and no chills Respiratory: no cough and no dyspnea Cardiovascular: no chest pain and no palpitations Gastrointestinal: no abdominal pain, no nausea and no vomiting Physical Exam Constitutional: WD/WN, vitals as above Respiratory: normal respiratory effort, lungs clear to auscultation Cardiovascular: RRR, no murmur, no edema Gastrointestinal (Abdomen): normal bowel sounds, soft, nontender, no hepatosplenomegaly Skin: no rashes, warm and dry Surgical site on left hip clean, no drainage, ecchymosis which is expected Results & Data Results & Data ([place]) Vital Signs (Past 12 Hours) Vital Signs Temp Pulse Resp BP Pulse Ox O2 Del Method 07/06/22 07:29 36.6 C 67 20 176/67 H 97 Room Air 07/06/22 06:15 64 189/73 H 07/05/22 22:54 36.7 C 69 20 185/83 H 98 Room Air PG Care Time/CCT Total # of Minutes Spent Total Time Spent with Patient: Total time spent is greater than 50% in coordination of care (as documented) at patient's floor/unit and/or counseling patient: Coding Level of Care Code 86828 Subseq Hosp Care Lvl 3 Diagnoses Altered mental state R41.82 Hypophosphatemia E83.39 Periprosthetic hip fracture M97.8XXA; Z96.649 Encounter type: initial encounter Acute on chronic anemia D64.9 CAD (coronary artery disease) I25.10 CLL (chronic lymphocytic leukemia) C91.90 Delirium R41.0 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 CVA (cerebral vascular accident) I63.9 CVA mechanism: unspecified Constipation K59.00 (1) Periprosthetic hip fracture Encounter type: initial encounter Qualified Code(s): M97.8XXA - Periprosthetic fracture around other internal prosthetic joint, initial encounter; Z96.649 - Presence of unspecified artificial hip joint (2) CVA (cerebral vascular accident) CVA mechanism: unspecified Qualified Code(s): I63.9 - Cerebral infarction, unspecified
[2022-07-06] MEDS: ATORVASTATIN 40 MG TAB PO SCH (20:00)
[2022-07-06] MEDS: POT PHOSPHATE MONOBASIC W/ SOD TAB PO SCH (20:09)
[2022-07-06] MEDS ORDERED: QUEtiapine FUMARATE 25 MG TABLET PO SCH (21:00)
[2022-07-07] MEDS: ACETAMINOPHEN 500 MG TAB PO SCH (05:51)
[2022-07-07 07:01] LABS: Magnesium 1.9 mg/dl (1.7-2.4); Phosphorus 2.5 mg/dl (2.5-4.9)
[2022-07-07] MEDS: CHOLECALCIFEROL 1,000 UNITS 25 MCG TAB PO SCH (08:01)
[2022-07-07] MEDS: VALSARTAN 80 MG TAB PO SCH (08:01)
[2022-07-07] MEDS: CALCIUM 600MG + VIT D 400 IU TAB PO SCH (08:01)
[2022-07-07] MEDS: APIXABAN 2.5 MG TAB PO SCH (08:01)
[2022-07-07] MEDS: FINASTERIDE 5 MG TAB PO SCH (08:01)
[2022-07-07] MEDS: POLYETHYLENE (MIRALAX) 17 GM PACK PO SCH (08:01)
[2022-07-07] MEDS: TAMSULOSIN HCL 0.4 MG CAP PO SCH (08:01)
--- NOTE | 2022-07-07 08:28 | Discharge Summary ---
Discharge Summary Date of Service July 07, 2022 Admission HPI Per Admitting Provider 86-year-old male who typically lives home alone. He had a fall sustaining a periprosthetic left hip fracture. Patient has medical problems including CLL, he has vascular disease having had a endovascular aortic repair and a carotid endarterectomy previous coronary disease and strokes.. Despite that his general physical health besides his gait imbalance has been re latively stable. He has known decreased perfusion to his lower extremities and typically his cold feet. There is a mechanical fall today was not preceded by dizziness or lightheadedness. He has had no recent chest pain or pressure. He said no orthopnea and can relatively lay flat. He is in no bruising or bleeding other than what sustained from his multiple falls. He most recently underwent surgery this past summer, March 2022, for an inguinal hernia repair and an adult circumcision due to phimosis Admission Exam Per Admitting Provider The patient appeared thin and underweight with a BMI of 18 Vital signs as documented. Head exam is normocephalic atraumatic Neck is without JVD, carotid endarterectomy scars on his right neck, no thyromegaly, or carotid bruits. Lungs are clear to auscultation, no focal loss of breath sounds Cardiac exam, Rhythm is regular.. Stock murmur is heard Abdominal exam reveals normal bowel sounds, soft non tender, no masses Extremities are nonedematous and both her shins are bruised left leg is externally rotated and shortened Neurologic exam is alert and oriented, no focal loss of strength or sensation with exception of hearing Skin is with multiple bruises Psychologically is without concerns for anxiety or depression Principal Dx & Hospital Course #1 = Principal Diagnosis (1) Altered mental state: Confusion on admission, does appear very intermittent and during my interview today was able to carry on an appropriate conversation. 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 CXR - possible right > left consolidation, pneumonitis versus pneumonia. Leukocytosis/lymphocytosis related to his CLL however given mentation far off baseline Unasyn was started x3 days. Suspect more likely to be pneumonitis than pneumonia, patient without oxygen need, no change in leukocytosis from baseline, no increased neutrophils (history of CLL). Antibiotics were discontinued on 07/06. Speech therapy evaluated patient and did not witness aspiration events. No changes to diet at this time, but can consider video swallow study in the outpatient setting if he were to develop recurrent pneumonia/pneumonitis in the future. KUB - significant fecal impaction, now having regular bowel movements with MiraLax. This also could have been a large contributor to confusion. Phosphate < 1 possibly contributing; replacement was given and phosphorus was 2.5 on day of discharge. (2) Hypophosphatemia: Possibly was contributing towards metabolic encephalopathy. K Phos 21 mmol given on 07/03 and 07/04; 15mmol given 07/05. Continue potassium phosphate 1 tablet every 6 hours on discharge. (3) Periprosthetic hip fracture: Orthopedic consultation placed w [facility]. Underwent surgical repair 07/01. Initially delayed due to thrombocytopenia and Cardiology clearance. Continue PT and OT; long term facility on discharge. (4) Acute on chronic anemia: History of iron deficiency anemia. Postoperative hemoglobin drop to 6.7 s/p 2 units packed RBCs, 3 units platelets -> Hgb 8.9. Hemoglobin stable at 10.2 and platelets increased to 140s. (5) CAD (coronary artery disease): Plavix discontinued in favor of Eliquis. Continue statin. Continue valsartan. (6) CLL (chronic lymphocytic leukemia): Patient with a history of CLL. He was started on chlorambucil by Dr. Disla in October 2021 due to significant leukocytosis. This medication was discontinued several months ago. WBC count this admission of 22,000; no clear evidence of infection; patient was briefly on Unasyn for aspiration pneumonitis versus pneumonia, however antibiotics were discontinued as patient does not have any oxygen demand or respiratory complaints suggestive of pneumonia. 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 Stable 07/06 at 140. Plan for active treatment of CLL upon discharge. Patient follows with Dr. Ly. (7) BPH loc w/o ur obs/LUTS: No evidence of urinary retention. Urinary catheter was removed on 07/03 without incident. (8) CVA (cerebral vascular accident): History of CVA. Continue statin and BP control. (9) Constipation: Resolved with MiraLAX. MiraLAX is ordered scheduled twice daily with other doses as needed for continued constipation. (10) Thrombocytopenia: History of, secondary to CLL. Hip fracture repair was delayed for several days due to low platelets, as low as 40 this admission. Received a total of 3 units of platelets this admission. Discharge platelets of 140. Plan Dispo[facility] facility for [facility] therapy Discharge Exam Constitutional WD/WN, vitals as above Skin no rashes, warm and dry Psychiatric A+Ox3, euthymic affect Updated Medication List Medication Instructions Recorded Confirmed Type calcium carbonate 600 mg-vitamin 1 tab PO BID 05/16/19 06/10/22 History D3 10 mcg (400 unit) tablet (Calcium 600 + D(3)) cholecalciferol (vitamin D3) 50 2,000 unit PO QAM 05/16/19 06/10/22 History mcg (2,000 unit) tablet (Vitamin D3) acetaminophen 500 mg capsule 500 mg PO Q6H PRN Pain 07/23/19 06/10/22 History fluticasone propionate 50 2 spray intranasal DAILY PRN 07/21/20 06/10/22 History mcg/actuation nasal Allergic Symptoms spray,suspension atorvastatin 40 mg tablet 40 mg PO HS #90 tabs 10/11/21 06/10/22 Rx finasteride 5 mg tablet 5 mg PO QAM 01/26/22 06/10/22 History tamsulosin 0.4 mg capsule 0.4 mg PO QAM #90 caps 02/07/22 06/10/22 Rx valsartan 80 mg tablet 80 mg PO QAM #30 tabs 03/08/22 06/10/22 Rx clotrimazole-betamethasone 1 1 applic topical TID PRN Swelling 03/21/22 06/10/22 Rx %-0.05 % topical cream #45 grams apixaban 2.5 mg tablet (Eliquis) 2.5 mg PO BID #60 tabs 07/07/22 Rx apixaban 2.5 mg tablet (Eliquis) 2.5 mg PO BID 30 days #60 tabs 07/07/22 Rx quetiapine 25 mg tablet (Seroquel) 25 mg PO HS #30 tabs 07/07/22 Rx sodium di- and 1 tab PO QID #120 tabs 07/07/22 Rx monophosphate-potassium phos monobasic 250 mg tablet (Phospha 250 Neutral) Hospital Stay Data Consultations 06/27/22 17:47 ED Decision to Admit Stat 06/27/22 20:50 Consult Orthopedic Surgery Routine 06/29/22 16:49 Consult Hematology Routine Procedures Performed Operation Date: 06/29/22 07:00 <No data on this case meets the specified criteria> Operation Date: 06/30/22 08:05 Actual Procedures p Left Hip Open Reduction Internal Fixaton with Hemiarthroplasty Revision(Left) - Daryl Arroyo, Diagnostic Imagining Performed 07/02/22 12:02 CT head/brain wo con Stat Pending Results Patient Have Any Pending Studies at Discharge: No Discharge Instructions Given to Patient (Per Discharging Provider) Altered mental state: Resolved. Reportedly no prior history of dementia although he does have a caregiver. 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 CXR - possible right > left consolidation, pneumonitis versus pneumonia. Leukocytosis/lymphocytosis related to his CLL however given mentation far off baseline Unasyn was started x3 days. Suspect more likely to be pneumonitis than pneumonia, patient without oxygen need, no change in leukocytosis from baseline, no increased neutrophils (history of CLL). Antibiotics were discontinued on 07/06. Speech therapy evaluated patient and did not witness aspiration events. No changes to diet at this time, but can consider video swallow study in the outpatient setting if he were to develop recurrent pneumonia/pneumonitis in the future. KUB - significant fecal impaction, now having regular bowel movements with MiraLax. This also could have been a large contributor to confusion. Phosphate < 1 possibly contributing; replacement ordered with repeat level of 2.3, still low but much improved from <1.0 on 07/03. Continue potassium phosphate 1 tablet 4 times daily on discharge. Seroquel 25 mg nightly was started due to episodes of sundowning in the evenings. Can continue this on discharge. Hypophosphatemia: Possibly was contributing towards metabolic encephalopathy. K Phos 21 mmol given on 07/03 and 07/04; 15mmol given 07/05. Potassium phosphate 1 table QID started 07/06, continue this on discharge. Periprosthetic hip fracture: Orthopedic consultation placed w [facility] Underwent surgical repair 07/01. Initially delayed due to thrombocytopenia and Cardiology clearance. Continue PT and OT. Acute on chronic anemia: History of iron deficiency anemia. Postoperative hemoglobin drop to 6.7 s/p 2 units packed RBCs, 3 units platelets -> Hgb 8.9. Hemoglobin stable at 10.2 and platelets increased to 140s. CAD (coronary artery disease): Plavix discontinued in favor of Eliquis. Continue statin. Continue valsartan. CLL (chronic lymphocytic leukemia): Patient with a history of CLL. He was started on chlorambucil by Dr. Disla in October 2021 due to significant leukocytosis. This medication was discontinued several months ago. WBC count this admission of 22,000; no clear evidence of infection; patient was briefly on Unasyn for aspiration pneumonitis versus pneumonia, however antibiotics were discontinued as patient does not have any oxygen demand or respiratory complaints suggestive of pneumonia. 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 Stable today at 140. Plan for active treatment of CLL upon discharge. Patient follows with Dr. Ly. BPH loc w/o ur obs/LUTS: - No evidence of urinary retention at this time. - Urinary catheter was removed on 07/03 without incident. CVA (cerebral vascular accident): - History of CVA. - Continue statin and BP control. Constipation: - Resolved with MiraLAX. MiraLAX is ordered scheduled twice daily with other doses as needed for continued constipation. Total Time Total Time Spent Total Time Spent (In Minutes): 35 Coding Level of Care Code D/C DAY MANAGEMENT >30 MINS Diagnoses Altered mental state R41.82 Hypophosphatemia E83.39 Periprosthetic hip fracture M97.8XXA; Z96.649 Encounter type: initial encounter Acute on chronic anemia D64.9 CAD (coronary artery disease) I25.10 CLL (chronic lymphocytic leukemia) C91.90 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 CVA (cerebral vascular accident) I63.9 CVA mechanism: unspecified Constipation K59.00 Thrombocytopenia D69.6
[2022-07-07] MEDS: POT PHOSPHATE MONOBASIC W/ SOD TAB PO SCH (08:29)
== END 2022-07-07 10:39 | DRG 466 ==
LOC: ED 15:12 → 2N 18:47 → SUATTDRO 18:47 → 2N 20:05

== ENCOUNTER 2023-05-07 10:41 | Inpatient (IN) ==
--- NOTE | 2023-05-07 10:52 | Emergency Department Note ---
History of Present Illness General Chief complaint: Confusion Stated complaint: FALL, CONFUSION Time Seen by Provider: 05/07/23 10:42 History of Present Illness 87-year-old male presents from the [facility] reportedly was found at 5 AM on the ground outside barely clothed and he had increased confusion. There is no reported trauma except for skin tears to the right upper extremity. Patient was sent in by EMS for increased confusion. Patient has no current complaints; there has been no reported vomiting or abdominal pain chest pain or shortness of breath per EMS; patient provides no history Home Medications Medication Instructions Recorded Confirmed Type calcium carbonate 600 mg-vitamin 1 tab PO BID 05/16/19 12/09/22 History D3 10 mcg (400 unit) tablet (Calcium 600 + D(3)) cholecalciferol (vitamin D3) 50 2,000 unit PO QAM 05/16/19 12/09/22 History mcg (2,000 unit) tablet (Vitamin D3) docusate sodium 100 mg capsule 100 mg PO DAILY PRN 07/15/22 12/09/22 History (Colace) tamsulosin 0.4 mg capsule 0.4 mg PO QAM #90 caps 08/05/22 12/09/22 Rx amoxicillin 500 mg tablet 2,000 mg PO BID 09/20/22 12/09/22 History polyethylene glycol 3350 17 17 g PO DAILY PRN constipation 09/20/22 12/09/22 History gram/dose oral powder (Miralax) clotrimazole-betamethasone 1 1 applic topical .qhs #45 grams 10/18/22 12/09/22 Rx %-0.05 % topical cream fluticasone propionate 50 2 spray intranasal DAILY Allergic 10/26/22 12/09/22 Rx mcg/actuation nasal Symptoms #16 grams spray,suspension acalabrutinib maleate 100 mg 100 mg PO DAILY #1 tab 11/11/22 12/09/22 Rx tablet (Calquence (acalabrutinib maleate)) peg 400-propylene glycol (PF) 0.4 1 drp ophthalmic (eye) BID PRN 12/09/22 12/09/22 History %-0.3 % eye drops in a dropperette (Systane (PF)) famotidine 40 mg tablet 40 mg PO DAILY #90 tabs 12/13/22 Rx nystatin 100,000 unit/gram topical 1 applic topical BID PRN rash #30 12/20/22 Rx cream grams clopidogrel 75 mg tablet 75 mg PO DAILY #90 tabs 02/20/23 Rx finasteride 5 mg tablet 5 mg PO QAM #90 tabs 02/20/23 Rx valsartan 80 mg tablet 80 mg PO QAM #90 tabs 02/20/23 Rx potassium chloride 10 mEq 10 meq PO BID #60 tabs 02/28/23 Rx tablet,extended release acetaminophen 325 mg tablet 325 mg PO QID #120 tabs 03/02/23 Rx atorvastatin 40 mg tablet 40 mg PO HS #90 tabs 03/17/23 Rx molnupiravir 200 mg capsule (EUA) 800 mg PO Q12H 5 days #40 caps 03/23/23 03/23/23 Rx Allergies Allergy/AdvReac Type Severity Reaction Status Date / Time KVNG Inhibitors AdvReac Mild Cough Verified 12/09/22 14:56 codeine AdvReac Mild Nausea Verified 12/09/22 14:56 Past Med/Surg History Medical History Abscess Aortic aneurysm - S/p TEVAR (2016) - Aortic stent graft seen per 11/15/[address] scan - Per Chest CT 01/14/21= 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 Evidence for stent repair of the descending thoracic aorta. 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 Bifascicular block Chronic, dating back to at least 08/2018 per chart review Bilateral inguinal hernia BPH (benign prostatic hyperplasia) WITH URINARY LEAKAGE CAD (coronary artery disease) Nonobstructive per cardio records (pt denies cardiac cath per 01/18/22 cardio note_ Cardiomyopathy EF 60-65% per 06/2021 ECHO Carotid artery disease S/p left carotid endarterectomy (2013) Per neck CTA 10/23/20= No significant carotid artery disease CKD (chronic kidney disease) CLL (chronic lymphocytic leukemia) Hearing deficit History of seizure [place] r/t hypoglycemic episodes (last ) History of stroke Initial stroke 2007- felt secondary to carotid disease (s/p left CEA) Possible second CVA shortly after first CVA Per records- CVA 10/23/20 On Plavix No residual effects Hyperlipidemia Hypertension Left thigh pain Osteoporosis Right inguinal hernia Surgical History H/O right inguinal hernia repair (08/03/20) Open right inguinal hernia repair. Dr. Wright 08/03/2020 H/O thoracic aortic aneurysm repair Hip fracture requiring operative repair LEFT HIP History of carotid endarterectomy LEFT History of cataract surgery RT/LEFT History of hernia surgery LEFT INGUINAL 1980 History of left hip replacement History of right hip replacement History of tonsillectomy 1944 Hx of nasal polypectomy Nausea and vomiting after administration of anesthetic agent S/P left inguinal hernia repair (03/21/22) Recurrent left inguinal hernia repair. Dr. Wright Status post incision and drainage (06/26/20) incision and drainage in the office of the left posterior thigh abscess 06/26/20 Dr. Wright in office Family History Brother Colorectal cancer Stroke Family history of diabetes mellitus Father Heart disease Hypertension Stroke Other No family history of adverse response to anesthesia Denies family history of Ovarian cancer Prostate cancer Myocardial infarction Breast cancer Social History Smoking Status: Never smoker Tobacco Type: Cigarettes packs per day: 0.75; Cigarettes Per Day: 12 YEARS AGO; Second Hand Exposure: No; Do You Dip or Chew Tobacco: No; Hx Alcohol Use: Yes Alcohol type: beer and wine Alcohol Intake Frequency: 4 or More x per/Week Alcohol Intake Frequency Comment: 14 Hx Substance Use: No Preferred Language: Vietnamese Communication Ability: Effective Communication Ability Comment: Pt. [place] bilaterally Visual Impairment: No Limitations Hearing Ability: Use of Hearing Aid Information Technology Architect Required: No Beliefs That Will Affect Care: None marital status: / Current Living Situation: Alone current occupational status: retired How many Children do You have: 0 Feels Safe at Home: Yes Childhood Exposure to Second-Hand Smoke: Yes Dental Care, Regularly: Yes Physical Activity Frequency: 1-2 Times per Week Seatbelt Use: always Sunscreen Use: No Assistive Devices: Glasses and Hearing Aid - Bilateral Review of Systems Unobtainable due to cognitive status Physical Exam Vital Signs Vital Signs - 24 hr 05/07/23 10:59 05/07/23 11:32 05/07/23 11:48 Temperature 37.1 C Temperature Source Oral Pulse Rate 78 Pulse Rate [Apical] 71 Pulse Rhythm [Apical] Regular Respiratory Rate 16 22 Respiratory Effort / Characteristics Non-Labored Spontaneous Respiratory Depth Normal Respiratory Pattern Regular Blood Pressure 203/104 H Blood Pressure [Right Arm] 170/92 H Blood Pressure Mean 137 Blood Pressure Mean [Right Arm] 118 Blood Pressure Position [Right Arm] Lying Pulse Oximetry 97 96 96 Oxygen Delivery Method Room Air Room Air Room Air Sepsis Recent Fever Within 48 Hours No Sepsis New/Unexplained Change in Mental Status Yes Sepsis Action Taken by Nursing No Action Required 05/07/23 12:05 Temperature Temperature Source Pulse Rate 71 Pulse Rate [Apical] Pulse Rhythm [Apical] Respiratory Rate Respiratory Effort / Characteristics Respiratory Depth Respiratory Pattern Blood Pressure Blood Pressure [Right Arm] Blood Pressure Mean Blood Pressure Mean [Right Arm] Blood Pressure Position [Right Arm] Pulse Oximetry Oxygen Delivery Method Sepsis Recent Fever Within 48 Hours Sepsis New/Unexplained Change in Mental Status Sepsis Action Taken by Nursing GENERAL: Patient is awake alert in no acute distress patient is resting comfortably and showing no signs of anxiety EYES: The conjunctivae are clear. The pupils are round and reactive. EARS, NOSE, MOUTH AND THROAT: The nose is without any evidence of any deformity. Mucous membranes are moist. Tongue is midline. NECK: The neck is nontender and supple. RESPIRATORY: Normal respiratory effort is noted there is no evidence of wheezing rhonchi or rales CARDIOVASCULAR: Regular rate and rhythm noted there no murmurs rubs or gallops normal S1 normal S2. GASTROINTESTINAL: The abdomen is soft. Abdomen is nontender. BACK: No midline tenderness or or step-off noted range of motion in flexion extension as well as rotation no signs of muscle spasm noted MUSCULOSKELETAL/EXTREMITIES: There is no evidence of gross deformity full range of motion is noted in the hips and shoulders. SKIN: There is no obvious evidence of any rash. There are no petechiae, pallor or cyanosis noted. Patient has skin tears to the right upper extremity NEUROLOGIC: Patient is awake alert and oriented x1 Course Reevaluation(s) Reevaluation #1: No change in the patient's condition on repeat examination. I did discuss the evaluation with the patient's healthcare advocate who is at bedside and states this is unusual for him to behave like this. He does reportedly live in an assisted living part of the [facility] Time: 13:36 Medical Decision Making Medical Records Attestation: I reviewed the patient's medical records. Home Medications Current Medication List: was personally reviewed by me Laboratory Data Attestation: I reviewed the patient's lab results. Labs interpreted by me patient has an elevated white blood cell count, has a history of CLL, this blood cell count is not as high as past blood cell counts 05/07/23 11:42 05/07/23 11:42 Lab Results 05/07/23 05/07/23 05/07/23 Range/Units 11:42 11:42 11:42 WBC 42.97 H* (4.8-10.8) K/ul RBC 4.86 (4.70-6.10) M/uL Hgb 15.0 (14.0-18.0) g/dl Hct 44.9 (42.0-52.0) % MCV 92.4 (80.0-100.0) fL MCH 30.9 (25.0-34.0) pg MCHC 33.4 (32.0-36.0) g/dL RDW Std Deviation 52.2 H (36.4-46.3) fL RDW Coeff of Jewel 15.3 H (11.5-14.5) % Plt Count 88 L (130-400) K/uL MPV 10.2 (9.4-12.4) fL Immature Gran % (Auto) 0.3 % Neut % (Auto) 17.0 % Lymph % (Auto) 80.1 % Crawford % (Auto) 1.9 % Eos % (Auto) 0.4 % Baso % (Auto) 0.3 % Neut # (Auto) 7.33 H (1.40-6.50) K/uL Lymph # (Auto) 34.43 H (1.2-3.4) K/uL Crawford # (Auto) 0.80 H (0.11-0.59) K/uL Eos # (Auto) 0.18 (0-0.50) K/uL Baso # (Auto) 0.11 (0-0.2) K/uL Immature Gran # (Auto) 0.12 (0.01-0.20) K/uL Smudge Cells Present Sodium 140 (136-145) mmol/L Potassium 3.8 (3.5-5.1) mmol/L Chloride 107 (98-107) mmol/L Carbon Dioxide 25 (21-32) mmol/L Anion Gap 8 (3-11) BUN 18 (6-23) mg/dl Creatinine 1.36 (0.6-1.4) mg/dl Est Cr Clr Drug Dosing 37.1 ml/min Est GFR ( Amer) 54.6 ml/min Est GFR (Non-Af Amer) 47.1 ml/min BUN/Creatinine Ratio 13.2 (10-20) Glucose 104 H (70-99(Fasting)) mg/dl Lactate (0.4-2.0) mmol/L Calcium 10.3 (8.6-10.3) mg/dl Magnesium 2.0 (1.7-2.4) mg/dl Total Bilirubin 1.3 H (0.2-1.0) mg/dl Direct Bilirubin 0.3 H (0-0.2) mg/dl AST 17 (13-39) U/L ALT 13 (7-52) U/L Alkaline Phosphatase 81 (34-104) U/L Troponin I High Sens 28.0 H (0-20) pg/ml C-Reactive Protein < 0.50 (0-0.5) mg/dl Total Protein 7.2 (6.0-8.3) gm/dl Albumin 4.5 (3.4-5.0) gm/dl Procalcitonin < 0.05 (0-0.5) ng/ml Urine Color Urine Appearance (Clear) Urine pH (4.5-7.5) Ur Specific [place] (1.000-1.030) Urine Protein (Negative) Urine Glucose (UA) (Negative) Urine Ketones (Negative) Urine Blood (Negative) Urine Nitrite (Negative) Urine Bilirubin (Negative) Urine Urobilinogen (Negative) Ur Leukocyte Esterase (Negative) Urine WBC (Auto) (0-5) /hpf Urine RBC (Auto) (0-4) /hpf U Hyaline Cast (Auto) (0-5) /lpf U Epithel Cells (Auto) (0-5) /lpf Urine Bacteria (Auto) (Negative) 05/07/23 05/07/23 05/07/23 Range/Units 11:42 11:53 11:53 WBC (4.8-10.8) K/ul RBC (4.70-6.10) M/uL Hgb (14.0-18.0) g/dl Hct (42.0-52.0) % MCV (80.0-100.0) fL MCH (25.0-34.0) pg MCHC (32.0-36.0) g/dL RDW Std Deviation (36.4-46.3) fL RDW Coeff of Jewel (11.5-14.5) % Plt Count (130-400) K/uL MPV (9.4-12.4) fL Immature Gran % (Auto) % Neut % (Auto) % Lymph % (Auto) % Crawford % (Auto) % Eos % (Auto) % Baso % (Auto) % Neut # (Auto) (1.40-6.50) K/uL Lymph # (Auto) (1.2-3.4) K/uL Crawford # (Auto) (0.11-0.59) K/uL Eos # (Auto) (0-0.50) K/uL Baso # (Auto) (0-0.2) K/uL Immature Gran # (Auto) (0.01-0.20) K/uL Smudge Cells Sodium (136-145) mmol/L Potassium (3.5-5.1) mmol/L Chloride (98-107) mmol/L Carbon Dioxide (21-32) mmol/L Anion Gap (3-11) BUN (6-23) mg/dl Creatinine (0.6-1.4) mg/dl Est Cr Clr Drug Dosing ml/min Est GFR ( Amer) ml/min Est GFR (Non-Af Amer) ml/min BUN/Creatinine Ratio (10-20) Glucose (70-99(Fasting)) mg/dl Lactate 0.9 (0.4-2.0) mmol/L Calcium (8.6-10.3) mg/dl Magnesium (1.7-2.4) mg/dl Total Bilirubin (0.2-1.0) mg/dl Direct Bilirubin (0-0.2) mg/dl AST (13-39) U/L ALT (7-52) U/L Alkaline Phosphatase (34-104) U/L Troponin I High Sens (0-20) pg/ml C-Reactive Protein Cancelled (0-0.5) mg/dl Total Protein (6.0-8.3) gm/dl Albumin (3.4-5.0) gm/dl Procalcitonin (0-0.5) ng/ml Urine Color Yellow Urine Appearance Clear (Clear) Urine pH 8.0 H (4.5-7.5) Ur Specific [place] 1.015 (1.000-1.030) Urine Protein 2+ H (Negative) Urine Glucose (UA) Negative (Negative) Urine Ketones Negative (Negative) Urine Blood Trace H (Negative) Urine Nitrite Negative (Negative) Urine Bilirubin Negative (Negative) Urine Urobilinogen Negative (Negative) Ur Leukocyte Esterase Negative (Negative) Urine WBC (Auto) 0 (0-5) /hpf Urine RBC (Auto) 0-4 (0-4) /hpf U Hyaline Cast (Auto) 0 (0-5) /lpf U Epithel Cells (Auto) 5-10 H (0-5) /lpf Urine Bacteria (Auto) Negative (Negative) Imaging Data Attestation: I personally reviewed and interpreted this imaging study as follows: My Impression: Chest x-ray interpreted by me COPD changes Radiologist's Impression: Chest X-Ray 05/07/23 10:48 XR chest 1V portable HISTORY: 87 years-old Male Sepsis acute sepsis COMPARISON: Chest CT 12/19/2022 TECHNIQUE: AP view of the chest FINDINGS: Cardiac silhouette is enlarged. Aneurysmal dilation with tortuosity of the descending thoracic aorta which is stented. Unchanged right hemidiaphragmatic elevation. With chronic interstitial coarsening. No pneumothorax, pleural effusion or airspace consolidation. Bones appear grossly intact. IMPRESSION: 1. Emphysema with chronic interstitial coarsening. 2. Cardiomegaly without pulmonary edema. ACT 112: Negative or not required by law. The above report was generated using voice recognition software. It may contain grammatical, syntax or spelling errors. Electronically signed by: Daryl Young M.D. 05/07/2023 11:[address] 05/07/23 10:49 CT head/brain wo con CLINICAL HISTORY: 87 years-old Male with increased confusion, fall. Acutely altered mental status. Acute head trauma status post fall TECHNIQUE: Multiple axial CT images of the head were obtained without contrast. A dose lowering technique was utilized adhering to the principles of ALARA. CT DOSE: 625.80 mGy.cm COMPARISON: None. FINDINGS: No acute intracranial hemorrhage, midline shift, intracranial mass, acute territorial ischemia or abnormal extra-axial collection. Involutional changes with chronic microvascular ischemic disease. Unchanged ventriculomegaly, likely on an ex vacuo basis. The calvarium is intact. Trace mastoid effusions. Moderate mucosal thickening of the paranasal sinuses with polypoid mucosal thickening of the nasal turbinates. Complete opacification of the imaged right maxillary sinus. Prior bilateral lens repair. IMPRESSION: No acute intracranial abnormality. ACT 112: Negative or not required by law. The above report was generated using voice recognition software. It may contain grammatical, syntax or spelling errors. Electronically signed by: Daryl Young M.D. 05/07/2023 11:51 AM ECG Data Attestation: I personally reviewed and interpreted this ECG as follows: Additional Comments: EKG interpreted by me sinus rhythm rate of 70, PVCs, left axis deviation, right bundle branch block, no obvious ST segment elevation or depression Telemetry was ordered by me, interpreted as normal sinus rhythm rate of 70 MDM Narrative Medical decision making differential diagnosis includes closed head injury, electrolyte abnormality, dehydration, urinary tract infection, advanced dementia Plan is to check labs, CT brain, observe External medical records were reviewed EMS medical report was reviewed by me Impression & Plan Acute confusion, Multiple skin tears Discharge Plan Visit Data Chief Complaint: Confusion Stated Complaint: FALL, CONFUSION ED Provider: Greg Calero Discharge Problem: Acute confusion, Multiple skin tears Patient Disposition: Admitted As Inpatient Forms Stand Alone Forms: My [facility] Prescriptions Prescriptions: No Action tamsulosin 0.4 mg capsule 0.4 mg PO QAM Qty: 90 3RF fluticasone propionate 50 mcg/actuation spray,suspension 2 spray INTRANASAL DAILY Qty: 16 5RF Calquence (acalabrutinib mal) 100 mg tablet 100 mg PO DAILY Qty: 1 0RF Rx Instructions: MANAGED BY DR. LANDIN WITH CCP famotidine 40 mg tablet 40 mg PO DAILY Qty: 90 3RF nystatin 100,000 unit/gram cream 1 applic topical BID PRN (Reason: rash) Qty: 30 1RF Rx Instructions: Apply twice a day to irritated groin area clopidogrel 75 mg tablet 75 mg PO DAILY Qty: 90 3RF finasteride 5 mg tablet 5 mg PO QAM Qty: 90 3RF valsartan 80 mg tablet 80 mg PO QAM Qty: 90 3RF potassium chloride 10 mEq tablet extended release 10 meq PO BID Qty: 60 5RF acetaminophen 325 mg tablet 325 mg PO QID Qty: 120 3RF atorvastatin 40 mg tablet 40 mg PO HS Qty: 90 3RF amoxicillin 500 mg tablet 2,000 mg PO BID Rx Instructions: GIVE 4 TABLETS BY MOUTH NEEDED FOR PROPHYLAXIS, GIVE 1 HOUR PRIOR TO DENTAL VISITS polyethylene glycol 3350 [Miralax] 17 gram/dose powder 17 g PO DAILY PRN (Reason: constipation) docusate sodium [Colace] 100 mg capsule 100 mg PO DAILY PRN Systane (PF) 0.4-0.3 % dropperette 1 drp ophthalmic (eye) BID PRN molnupiravir 200 mg capsule 800 mg PO Q12H 5 Days Qty: 40 0RF clotrimazole-betamethasone 1-0.05 % cream 1 applic topical .qhs Qty: 45 11RF Rx Instructions: Apply small/pea-sized amount topically before bed calcium carbonate-vitamin D3 [Calcium 600 + D(3)] 600 mg(1,500mg) -400 unit Tablet 1 tab PO BID cholecalciferol (vitamin D3) [Vitamin D3] 2,000 unit Tablet 2,000 unit PO QAM Referrals Referrals: Christopher Kearns MD [Primary Care Provider] -
--- NOTE | 2023-05-07 11:18 | XRay Report ---
XR chest 1V portable HISTORY: 87 years-old Male Sepsis acute sepsis COMPARISON: Chest CT 12/19/2022 TECHNIQUE: AP view of the chest FINDINGS: Cardiac silhouette is enlarged. Aneurysmal dilation with tortuosity of the descending thoracic aorta which is stented. Unchanged right hemidiaphragmatic elevation. With chronic interstitial coarsening. No pneumothorax, pleural effusion or airspace consolidation. Bones appear grossly intact. IMPRESSION: 1. Emphysema with chronic interstitial coarsening. 2. Cardiomegaly without pulmonary edema. ACT 112: Negative or not required by law. The above report was generated using voice recognition software. It may contain grammatical, syntax o r spelling errors. Electronically signed by: Daryl Young M.D. 05/07/2023 11:16 AM
--- NOTE | 2023-05-07 11:53 | CT Scan Report ---
CT head/brain wo con CLINICAL HISTORY: 87 years-old Male with increased confusion, fall. Acutely altered mental status. A cute head trauma status post fall TECHNIQUE: Multiple axial CT images of the head were obtained without contrast. A dose lowering tech nique was utilized adhering to the principles of ALARA. CT DOSE: 625.80 mGy.cm COMPARISON: None. FINDINGS: No acute intracranial hemorrhage, midline shift, intracranial mass, acute territorial ischemia or abn ormal extra-axial collection. Involutional changes with chronic microvascular ischemic disease. Uncha nged ventriculomegaly, likely on an ex vacuo basis. The calvarium is intact. Trace mastoid effusions . Moderate mucosal thickening of the paranasal sinuses with polypoid mucosal thickening of the nasal turbinates. Complete opacification of the imaged right maxillary sinus. Prior bilateral lens repair. IMPRESSION: No acute intracranial abnormality. ACT 112: Negative or not required by law. The above report was generated using voice recognition software. It may contain grammatical, syntax o r spelling errors. Electronically signed by: Daryl Young M.D. 05/07/2023 11:51 AM
[2023-05-07 11:54] LABS: Appearance Urine Clear (Clear); Bacteria Urine Automated Negative (Negative); Bilirubin Urine Negative (Negative); Blood Urine Trace (Negative); Cast Urine Automated 0 /lpf (0-5); Color Urine Yellow; Glucose Urine UA Negative (Negative); Ketones Urine Negative (Negative); Leukocyte Esterase Urine Negative (Negative); Nitrite Urine Negative (Negative); RBC Urine Automated 0-4 /hpf (0-4); Specific Gravity Urine 1.015 (1.000-1.030); Urobilinogen Urine Negative (Negative); WBC Urine Automated 0 /hpf (0-5)
[2023-05-07 12:05] LABS: Hematocrit (blood only) 44.9 % (42.0-52.0); Mean Corpuscular Hemoglobin 30.9 pg (25.0-34.0); Mean Corpuscular Hgb Conc 33.4 g/dL (32.0-36.0); Mean Corpuscular Volume 92.4 fL (80.0-100.0); Mean Platelet Volume 10.2 fL (9.4-12.4); Platelet Count 88 K/uL (130-400); Protein Urine 2+ (Negative); RDW Coefficient of Variation 15.3 % (11.5-14.5); RDW Standard Deviation 52.2 fL (36.4-46.3); Red Blood Count 4.86 M/uL (4.70-6.10); White Blood Count 42.97 K/ul (4.8-10.8)
[2023-05-07 12:12] LABS: Alanine Aminotransferase 13 U/L (7-52); Albumin Level 4.5 gm/dl (3.4-5.0); Alkaline Phosphatase 81 U/L (34-104); Anion Gap 8 (3-11); Aspartate Aminotransferase 17 U/L (13-39); BUN Creatinine Ratio 13.2 (10-20); Bilirubin Direct 0.3 mg/dl (0-0.2); Bilirubin,Total 1.3 mg/dl (0.2-1.0); Blood Urea Nitrogen 18 mg/dl (6-23); Calcium 10.3 mg/dl (8.6-10.3); Carbon Dioxide 25 mmol/L (21-32); Chloride 107 mmol/L (98-107); Creatinine Clr Calc Pharmacy 37.1 ml/min; Est GFR (African American) 54.6 ml/min; Est GFR (Non-African American) 47.1 ml/min; Glucose 104 mg/dl (70-99(Fasting)); Potassium 3.8 mmol/L (3.5-5.1); Sodium 140 mmol/L (136-145); Total Protein 7.2 gm/dl (6.0-8.3)
[2023-05-07 12:24] LABS: Basophils # (auto) 0.11 K/uL (0-0.2); Basophils % (auto) 0.3 %; Eosinophils # (auto) 0.18 K/uL (0-0.50); Eosinophils % (auto) 0.4 %; Immature Granulocytes # (auto) 0.12 K/uL (0.01-0.20); Immature Granulocytes % (auto) 0.3 %; Lymphocytes # (auto) 34.43 K/uL (1.2-3.4); Lymphocytes % (auto) 80.1 %; Monocytes % (auto) 1.9 %; Neutrophils # (auto) 7.33 K/uL (1.40-6.50); Smudge Cells Present
--- NOTE | 2023-05-07 12:43 | Electrocardiogram Report ---
Test Reason : Blood Pressure : / mmHG Vent. Rate : 070 BPM Atrial Rate : 070 BPM P-R Int : 194 ms QRS Dur : 152 ms QT Int : 426 ms P-R-T Axes : 002 -32 -10 degrees QTc Int : 460 ms Sinus rhythm with Premature supraventricular complexes and with occasional Premature ventricular comp lexes Left axis deviation Right bundle branch block possible Inferior infarct (cited on or before 27-JUN-2022) Abnormal ECG When compared with ECG of 27-JUN-2022 15:23, Premature ventricular complexes are now Present Premature supraventricular complexes are now Present QT has shortened Confirmed by [place] ([id number]) on 05/07/2023 12:43:31 PM Referred By: Confirmed By:Juan Guadarrama
--- NOTE | 2023-05-07 13:47 | History & Physical Report ---
Date of Service May 07, 2023 Assessment & Plan (1) Acute confusion: Plan: Altered mental status, found down at [facility] Leukocytosis of 42. Pending last weeks CBC from [facility], has a history of CLL Mentation improved but still abnormal at time of bedside assessment. Endorses he feels fatigued. Does answer questions appropriately and follow commands CThead no acute findings. At time of admitting assessment patient is moving around in bed with no neck tenderness or pain. CXR: Emphysema with chronic interstitial coarsening, cardiomegaly without pulmonary edema Creatinine 1.36, is at normal baseline. No gross electrolyte abnormalities. T. bili mildly elevated without other transaminitis High sensitive troponin 28 - EKG: Sinus rhythm with PVCs. No acute territorial signs of ischemia. Right bundle celia block. QTc 460 No infectious symptoms reported. Patient does have some abdominal discomfort, CTA/P ordered With wheezing? Acute on chronic COPD/emphysema exacerbation versus viral illness. BioFire ordered, ?adeno No urinary symptoms, UA is not infected appearing No signs of cellulitis on exam Emphysema, acute on chronic COPD With increased wheezing Also with COVID 6 weeks prior No hypoxia on admission Given wheezing will treat with methylprednisolone 60 mg x 1 and 40 mg daily x5, Z-Phil 5-day course trop elevation Mild high-sensitivity troponin elevation at 28 suspect demand Repeat pending No acute EKG changes CLL With concurrent thrombocytopenia Leukocytosis 42, improved from prior Currently on break from any treatment, follows with Dr. Purdy History of stroke Atorvastatin, Plavix continued No focal neurologic deficits on exam DDx does include occult stroke, if entire other work-up is negative patient is significantly off his normal baseline we will follow-up with MRI contrasted due to history of malignancy BPH Finasteride/Flomax continued Hypertension Losartan continued Hyperlipidemia Continue statin DVT prophylaxis: Lovenox Diet: Heart healthy Disposition: Medical telemetry for unexplained syncope CODE STATUS: DNR/DN (2) History of stroke: (3) GERD (gastroesophageal reflux disease): (4) CVA (cerebral vascular accident): (5) BPH loc w/o ur obs/LUTS: (6) CAD (coronary artery disease): (7) Cardiomyopathy: (8) CLL (chronic lymphocytic leukemia): History of Present Illness Primary Care Provider: Christopher Kearns MD Randal Kline is a 87-year-old male who was found down on the ground outside [facility] with increased confusion. Was sent into EMS for confusion. Randal banda" lives at [facility]. 930am this mornign was found outside in the dirt without briefs of pajamajs and without his walker. Was noted to be confused. Is seen with health care aide at bedside who notes he is not a dementia/memory patient and his confusion is very different from normal. After waking up and being brought inside has an episode of confusion and urinated on the floor. Contacted health care aide several hours later who recognized this was very abnormal for him and recommended he be seen in the ER. - History of CLL. Just saw Dr. Purdy last week and is on holiday from any treatments at the moment, white count is high today. Last measurement is at [facility], not sure what it was last week. - Platelets are always low. At time bedside visit reports that his stomach is a little bit achy. Abdomen is lightly tender to palpation at the right quadrant and epigastrium. Denies chest pain, chest pressure, lightheadedness, dizziness. Very hard of hearing. Endorse he has a mild left earache and some congestion. Denies fever/chills/sweats. Does endorse having COVID 6 weeks ago. No shortness of breath at time of bedside visit, notes he had is wheezing a lot more than normal. Medical History: Reviewed Medications: Reviewed Surgical History: Reviewed Family history: Reviewed Allergies: Reviewed Social History: Reviewed Code Status: DNR/DNI Allergies Allergy/AdvReac Type Severity Reaction Status Date / Time KVNG Inhibitors AdvReac Mild Cough Verified 12/09/22 14:56 codeine AdvReac Mild Nausea Verified 12/09/22 14:56 Home Medications Medication Instructions Recorded Confirmed Type calcium carbonate 600 mg-vitamin 1 tab PO BID 05/16/19 12/09/22 History D3 10 mcg (400 unit) tablet (Calcium 600 + D(3)) cholecalciferol (vitamin D3) 50 2,000 unit PO QAM 05/16/19 12/09/22 History mcg (2,000 unit) tablet (Vitamin D3) docusate sodium 100 mg capsule 100 mg PO DAILY PRN 07/15/22 12/09/22 History (Colace) tamsulosin 0.4 mg capsule 0.4 mg PO QAM #90 caps 08/05/22 12/09/22 Rx amoxicillin 500 mg tablet 2,000 mg PO BID 09/20/22 12/09/22 History polyethylene glycol 3350 17 17 g PO DAILY PRN constipation 09/20/22 12/09/22 History gram/dose oral powder (Miralax) clotrimazole-betamethasone 1 1 applic topical .qhs #45 grams 10/18/22 12/09/22 Rx %-0.05 % topical cream fluticasone propionate 50 2 spray intranasal DAILY Allergic 10/26/22 12/09/22 Rx mcg/actuation nasal Symptoms #16 grams spray,suspension acalabrutinib maleate 100 mg 100 mg PO DAILY #1 tab 11/11/22 12/09/22 Rx tablet (Calquence (acalabrutinib maleate)) peg 400-propylene glycol (PF) 0.4 1 drp ophthalmic (eye) BID PRN 12/09/22 12/09/22 History %-0.3 % eye drops in a dropperette (Systane (PF)) famotidine 40 mg tablet 40 mg PO DAILY #90 tabs 12/13/22 Rx nystatin 100,000 unit/gram topical 1 applic topical BID PRN rash #30 12/20/22 Rx cream grams clopidogrel 75 mg tablet 75 mg PO DAILY #90 tabs 02/20/23 Rx finasteride 5 mg tablet 5 mg PO QAM #90 tabs 02/20/23 Rx valsartan 80 mg tablet 80 mg PO QAM #90 tabs 02/20/23 Rx potassium chloride 10 mEq 10 meq PO BID #60 tabs 02/28/23 Rx tablet,extended release acetaminophen 325 mg tablet 325 mg PO QID #120 tabs 03/02/23 Rx atorvastatin 40 mg tablet 40 mg PO HS #90 tabs 03/17/23 Rx molnupiravir 200 mg capsule (EUA) 800 mg PO Q12H 5 days #40 caps 03/23/2303/23 Rx Past Med/Surg History Medical History Abscess Aortic aneurysm - S/p TEVAR (2017) - Aortic stent graft seen per 11/15/[address] scan - Per Chest CT 01/14/21= 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 Evidence for stent repair of the descending thoracic aorta. 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 Bifascicular block Chronic, dating back to at least 08/2018 per chart review Bilateral inguinal hernia BPH (benign prostatic hyperplasia) WITH URINARY LEAKAGE CAD (coronary artery disease) Nonobstructive per cardio records (pt denies cardiac cath per 01/18/22 cardio note_ Cardiomyopathy EF 60-65% per 06/2021 ECHO Carotid artery disease S/p left carotid endarterectomy (2013) Per neck CTA 10/23/20= No significant carotid artery disease CKD (chronic kidney disease) CLL (chronic lymphocytic leukemia) Hearing deficit History of seizure [place] r/t hypoglycemic episodes (last ) History of stroke Initial stroke 2007- felt secondary to carotid disease (s/p left CEA) Possible second CVA shortly after first CVA Per records- CVA 10/23/20 On Plavix No residual effects Hyperlipidemia Hypertension Left thigh pain Osteoporosis Right inguinal hernia Surgical History H/O right inguinal hernia repair (08/03/20) Open right inguinal hernia repair. Dr. Wright 08/03/2020 H/O thoracic aortic aneurysm repair Hip fracture requiring operative repair LEFT HIP History of carotid endarterectomy LEFT History of cataract surgery RT/LEFT History of hernia surgery LEFT INGUINAL 1980 History of left hip replacement History of right hip replacement History of tonsillectomy 1944 Hx of nasal polypectomy Nausea and vomiting after administration of anesthetic agent S/P left inguinal hernia repair (03/21/22) Recurrent left inguinal hernia repair. Dr. Wright Status post incision and drainage (06/26/20) incision and drainage in the office of the left posterior thigh abscess 06/26/20 Dr. Wright in office Family History Brother Colorectal cancer Stroke Family history of diabetes mellitus Father Heart disease Hypertension Stroke Other No family history of adverse response to anesthesia Denies family history of Ovarian cancer Prostate cancer Myocardial infarction Breast cancer Social History Smoking Status: Never smoker Tobacco Type: Cigarettes packs per day: 0.75; Cigarettes Per Day: 12 YEARS AGO; Second Hand Exposure: No; Do You Dip or Chew Tobacco: No; Hx Alcohol Use: Yes Alcohol type: beer and wine Alcohol Intake Frequency: 4 or More x per/Week Alcohol Intake Frequency Comment: 14 Hx Substance Use: No Preferred Language: Chinese Communication Ability: Effective Communication Ability Comment: Pt. [place] BAND bilaterally Visual Impairment: No Limitations Hearing Ability: Use of Hearing Aid Shot Bagger Required: No Beliefs That Will Affect Care: None marital status: / Current Living Situation: Alone current occupational status: retired How many Children do You have: 0 Feels Safe at Home: Yes Childhood Exposure to Second-Hand Smoke: Yes Dental Care, Regularly: Yes Physical Activity Frequency: 1-2 Times per Week Seatbelt Use: always Sunscreen Use: No Assistive Devices: Glasses and Hearing Aid - Bilateral Review of Systems Review of Systems: All systems reviewed & are unremarkable except as noted in Subjective Physical Exam Physical Exam: General: Oriented to name and place. . NAD. Cooperative. HEENT: Atraumatic, normocephalic.Extremely [place]. Vision intact. R TM with serous fluid, no injection/erythema/purulence Pulm: CTAB A&P +scattered inspiratory wheezes. Symmetrical chest rise. No increased work of breathing. No respiratory distress. Cardiac: RRR, -mrg. Radial pulses intact and symmetrical. Abdominal: Nontender, nondistended, soft. BS present. Ext: warm, dry. No edema. L chronic stasis hyperpigmentation, no current swelling. No erythema. Results & Data Results & Data Vital Signs (Past 12 Hours) Vital Signs Temp Pulse Pulse Resp BP BP Pulse Ox 05/07/23 12:05 71 05/07/23 11:48 71 22 170/92 H 96 05/07/23 11:32 96 05/07/23 10:59 37.1 C 78 16 203/104 H 97 O2 Del Method 05/07/23 12:05 05/07/23 11:48 Room Air 05/07/23 11:32 Room Air 05/07/23 10:59 Room Air PG Care Time/CCT Total # of Minutes Spent Total Time Spent with Patient: Total time spent is greater than 50% in coordination of care (as documented) at patient's floor/unit and/or counseling patient: Coding Level of Care Code 41895 INT INP/OBS CARE MIN Diagnoses Acute confusion R41.0 History of stroke Z86.73 GERD (gastroesophageal reflux disease) K21.9 Esophagitis presence: esophagitis presence not specified CVA (cerebral vascular accident) I63.9 CVA mechanism: unspecified 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 CAD (coronary artery disease) I25.10 Cardiomyopathy I42.9 CLL (chronic lymphocytic leukemia) C91.90 (3) GERD (gastroesophageal reflux disease) Esophagitis presence: esophagitis presence not specified Qualified Code(s): K21.9 - Gastro-esophageal reflux disease without esophagitis (4) CVA (cerebral vascular accident) CVA mechanism: unspecified Qualified Code(s): I63.9 - Cerebral infarction, unspecified
[2023-05-07 14:23] LABS: C Reactive Protein < 0.50 mg/dl (0-0.5)
[2023-05-07] MEDS ORDERED: OPTIRAY 350 500ml IV ONE (14:32)
--- NOTE | 2023-05-07 14:56 | CT Scan Report ---
ABDOMEN AND PELVIS CT WITH IV CONTRAST CT DOSE: 736.93 mGy.cm HISTORY: Generalized abdominal pain, found down TECHNIQUE: Multiaxial CT images of the abdomen and pelvis were performed following the use of intrave nous contrast. A dose lowering technique was utilized adhering to the principles of ALARA. COMPARISON STUDY: Abdomen and pelvis CT 12/19/2022. FINDINGS: Groundglass and linear densities within the lung bases posteriorly favor dependent change/s ubsegmental atelectasis. Partial visualization of the stent graft repair of the descending thoracic a ortic aneurysm. The aneurysm sac remains stable in size measuring approximately 6.5 cm. No pneumoperi toneum. No pneumatosis. There are bilateral total hip arthroplasties again noted. No acute fractures identified. Old mild superior endplate compression deformity is at T10 and T11 remain unchanged. Prog ressive lymphadenopathy within the subcarinal and right hilar earnest stations. Aneurysmal dilatation o f the ascending thoracic aorta persists measuring up to 4.6 cm. The heart remains mildly enlarged. Th e main portal vein is patent. The liver, spleen, adrenal glands, and pancreas are within normal limit s. Possible punctate gallstones noted. No gallbladder wall thickening. Multiple bilateral renal hypod ense lesions remain unchanged. These favor cysts. No ureteral stones. No hydronephrosis. The main por juliano vein is patent. Calcified plaque within the abdominal aorta and iliac arteries. There is mild ane urysmal dilatation of the abdominal aorta measuring up to 3 cm. This remains unchanged. There is prog ressive upper abdominal lymphadenopathy. For comparative purposes a dominant left paratracheal lymph node measures 4.9 x 2.4 cm, previously measuring 2.4 x 2.3 cm. There is also progressive pelvic and i nguinal lymphadenopathy. No pelvic free fluid. Mild bladder wall thickening persists. This may be chr onic. There is a punctate stone within the gallbladder. The prostate gland is not well visualized but appears mildly enlarged. Colonic diverticulosis. No evidence for acute colitis. No bowel wall thicke carlos or obstruction. Normal appendix. Evidence for prior left inguinal hernia repair. IMPRESSION: 1. Interval progression of the lymphadenopathy within the abdomen/pelvis as described above. This is consistent with progression of the patient's known lymphoma. 2. No bowel wall thickening or obstruction. 3. Colonic diverticulosis. No evidence for acute diverticulitis. 4. Aortic aneurysms remain unchanged as described above. 5. Additional findings as described above. ACT 112: Negative or not required by law. Electronically signed by: Rajesh Randolph M.D. 05/07/2023 2:54 PM
[2023-05-07 15:12] LABS: Adenovirus PCR Not Detected (NotDetected); Bordetella parapertussis PCR Not Detected (NotDetected); Bordetella pertussis PCR Not Detected (NotDetected); Chlamydia pneumoniae PCR Not Detected (NotDetected); Coronavirus 229E PCR Not Detected (NotDetected); Coronavirus CoV-2 (COVID19)PCR Not Detected (NotDetected); Coronavirus HKU1 PCR Not Detected (NotDetected); Coronavirus NL63 PCR Not Detected (NotDetected); Coronavirus OC43PCR Not Detected (NotDetected); Human Metapneumovirus PCR Not Detected (NotDetected); Influenza A PCR Not Detected (NotDetected); Influenza B PCR Not Detected (NotDetected); Mycoplasma pneumoniae PCR Not Detected (NotDetected); Parainfluenza Virus 1 PCR Not Detected (NotDetected); Parainfluenza Virus 2 PCR Not Detected (NotDetected); Parainfluenza Virus 3 PCR Not Detected (NotDetected); Parainfluenza Virus 4 PCR Not Detected (NotDetected); Respiratory Syncytial VirusPCR Not Detected (NotDetected)
[2023-05-07 15:23] LABS: Rhinovirus/Enterovirus PCR DETECTED (NotDetected)
[2023-05-07] MEDS ORDERED: VALSARTAN 80 MG TAB PO STA (17:37)
[2023-05-07] MEDS ORDERED: hydrALAZINE 10 MG TAB PO ONE (17:38)
[2023-05-07] MEDS: ENOXAPARIN INJ 40 MG/0.4 ML SYR SQ SCH (18:16)
[2023-05-07] MEDS: ATORVASTATIN 40 MG TAB PO SCH (20:48)
[2023-05-07] MEDS: methylPREDNISolone 40 MG in SYRINGE 0 ML IV SCH (20:48)
[2023-05-07 23:15] LABS: Appearance Urine Clear (Clear); Bacteria Urine Automated Negative (Negative); Bilirubin Urine Negative (Negative); Blood Urine 1+ (Negative); Cast Urine Automated 0 /lpf (0-5); Color Urine Yellow; Glucose Urine UA Negative (Negative); Ketones Urine Negative (Negative); Leukocyte Esterase Urine Negative (Negative); Nitrite Urine Negative (Negative); Protein Urine 1+ (Negative); RBC Urine Automated 0-4 /hpf (0-4); Specific Gravity Urine 1.021 (1.000-1.030); Urobilinogen Urine Negative (Negative); WBC Urine Automated 0 /hpf (0-5); pH Urine 7.5 (4.5-7.5)
[2023-05-08] MEDS ORDERED: OLANZapine 10 MG/2.1 ML SDV IM STA (06:40)
[2023-05-08 07:55] LABS: Hematocrit (blood only) 46.5 % (42.0-52.0); Hemoglobin 15.5 g/dl (14.0-18.0); Mean Corpuscular Hemoglobin 30.2 pg (25.0-34.0); Mean Corpuscular Hgb Conc 33.3 g/dL (32.0-36.0); Mean Corpuscular Volume 90.6 fL (80.0-100.0); Mean Platelet Volume 10.1 fL (9.4-12.4); Platelet Count 101 K/uL (130-400); RDW Coefficient of Variation 15.3 % (11.5-14.5); RDW Standard Deviation 50.5 fL (36.4-46.3); Red Blood Count 5.13 M/uL (4.70-6.10); White Blood Count 66.68 K/ul (4.8-10.8)
[2023-05-08 08:30] LABS: Basophils # (auto) 0.13 K/uL (0-0.2); Basophils % (auto) 0.2 %; Immature Granulocytes # (auto) 0.25 K/uL (0.01-0.20); Immature Granulocytes % (auto) 0.4 %; Lymphocytes # (auto) 56.54 K/uL (1.2-3.4); Lymphocytes % (auto) 84.8 %; Monocytes # (auto) 0.64 K/uL (0.11-0.59); Neutrophils # (auto) 9.12 K/uL (1.40-6.50); Neutrophils % (auto) 13.6 %; Smudge Cells Present
[2023-05-08 08:38] LABS: Anion Gap 14 (3-11); BUN Creatinine Ratio 13.2 (10-20); Blood Urea Nitrogen 18 mg/dl (6-23); C Reactive Protein < 0.50 mg/dl (0-0.5); Calcium 10.5 mg/dl (8.6-10.3); Carbon Dioxide 18 mmol/L (21-32); Chloride 106 mmol/L (98-107); Creatinine Clr Calc Pharmacy 34.5 ml/min; Est GFR (African American) 54.6 ml/min; Est GFR (Non-African American) 47.1 ml/min; Glucose 136 mg/dl (70-99(Fasting)); Potassium 4.6 mmol/L (3.5-5.1); Sodium 138 mmol/L (136-145)
[2023-05-08] MEDS: CLOPIDOGREL BISULFATE 75 MG TAB PO SCH (09:01)
[2023-05-08] MEDS: FINASTERIDE 5 MG TAB PO SCH (09:01)
[2023-05-08] MEDS: VALSARTAN 80 MG TAB PO SCH (09:01)
[2023-05-08] MEDS: TAMSULOSIN HCL 0.4 MG CAP PO SCH (09:01)
[2023-05-08] MEDS: methylPREDNISolone 40 MG in SYRINGE 0 ML IV SCH (09:51)
[2023-05-08] MEDS: SODIUM CHLORIDE 0.9% 1000ML 1,000 ML IV SCH (13:45)
[2023-05-08] MEDS: cefTRIAXone SODIUM 1,000 MG in DEXTROSE 5% AD-VAN 50 ML IV SCH (13:45)
--- NOTE | 2023-05-08 14:37 | Hospitalist Progress Note ---
Date of Service May 08, 2023 Assessment & Plan (1) Acute confusion: Plan: Acute metabolic encephalopathy present on admission. Will need to rule out underlying infectious process. Supportive care. Admission head CT scan negative. (2) History of stroke: Plan: Stable. Continue current medical manage (3) GERD (gastroesophageal reflux disease): Plan: Stable. Continue current medical manage (4) CVA (cerebral vascular accident): Plan: No acute cerebrovascular injury noted at this time. (5) BPH loc w/o ur obs/LUTS: Plan: Stable. Continue current medical management (6) CAD (coronary artery disease): Plan: Stable. Continue current medical manage (7) Cardiomyopathy: Plan: Stable. Continue current medical management (8) CLL (chronic lymphocytic leukemia): Plan: Chronic leukocytosis. Serial labs (9) Elevated troponin: Plan: No evidence of acute coronary syndrome. No chest pain. No acute EKG changes. (10) COPD (chronic obstructive pulmonary disease): Plan: Stable. Continue current medical management Plan Hopeful discharge to previous living arrangements later this week Admission and Anticipated Discharge Date Admission Date: May 07, 2023 Subjective Alert but disoriented. No distress. Caretakers present and she states his mental status is usually alert and oriented x3. Underlying infection needs to be ruled out. Urine culture obtained. IV fluids started. Rocephin started, day 1 Review of Systems Review of Systems: The patient is unable to answer any questions regarding review of systems at this time Physical Exam Physical Exam: General-alert, disoriented. No fevers, no chills HEENT-head atraumatic and normocephalic, pupils equal and reactive to light, ex traocular muscles intact Neck-no lymphadenopathy or thyromegaly, trachea midline Chest-clear to auscultation percussion. No rales wheezing or rhonchi Cardiac-regular rate and rhythm, normal S1 and S2 Abdomen-normal bowel sounds, nontender, no hepatosplenomegaly Extremities-moving all 4 extremities randomly. No peripheral edema Neuro-no focal deficits. Strength appears to be symmetrical. Psych-cannot assess due to disorientation Results & Data Results & Data Vital Signs (Past 12 Hours) Vital Signs Temp Pulse Pulse Resp BP Pulse Ox O2 Del Method 05/08/23 12:09 37.0 C 92 H 16 162/101 H 91 Room Air 05/08/23 10:54 Room Air 05/08/23 07:23 36.6 C 99 H 16 171/88 H 92 Room Air 05/08/23 07:12 100 H 05/08/23 03:02 36.5 C 90 20 173/85 H 95 Room Air Laboratory Results 05/08/23 07:03 05/08/23 07:03 PG Care Time/CCT Total # of Minutes Spent Total Time Spent with Patient: Total time spent is greater than 50% in coordination of care (as documented) at patient's floor/unit and/or counseling patient: Coding Level of Care Code 75340 SUB INP/OBS CARE 3/50MIN Diagnoses Acute confusion R41.0 History of stroke Z86.73 GERD (gastroesophageal reflux disease) K21.9 Esophagitis presence: esophagitis presence not specified CVA (cerebral vascular accident) I63.9 CVA mechanism: unspecified 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 CAD (coronary artery disease) I25.10 Cardiomyopathy I42.9 CLL (chronic lymphocytic leukemia) C91.90 Elevated troponin R77.8 COPD (chronic obstructive pulmonary disease) J44.9 (3) GERD (gastroesophageal reflux disease) Esophagitis presence: esophagitis presence not specified Qualified Code(s): K21.9 - Gastro-esophageal reflux disease without esophagitis (4) CVA (cerebral vascular accident) CVA mechanism: unspecified Qualified Code(s): I63.9 - Cerebral infarction, unspecified
[2023-05-08] MEDS: traMADol HCL 50 MG TABLET PO PRN (17:41)
[2023-05-08] MEDS: OLANZapine 10 MG/2.1 ML SDV IM PRN (18:35)
[2023-05-08] MEDS ORDERED: ACETAMINOPHEN 325 MG TAB PO PRN (19:40)
[2023-05-08] MEDS: ENOXAPARIN INJ 40 MG/0.4 ML SYR SQ SCH (21:02)
[2023-05-08] MEDS: ATORVASTATIN 40 MG TAB PO SCH (21:02)
[2023-05-09] MEDS: SODIUM CHLORIDE 0.9% 1000ML 1,000 ML IV SCH ×2 (02:57→16:24)
[2023-05-09 08:24] LABS: BUN Creatinine Ratio 19.3 (10-20); Calcium 9.8 mg/dl (8.6-10.3); Creatinine Clr Calc Pharmacy 32.1 ml/min; Est GFR (African American) 48.5 ml/min; Est GFR (Non-African American) 41.9 ml/min; Potassium 3.7 mmol/L (3.5-5.1)
[2023-05-09 08:37] LABS: Hematocrit (blood only) 44.7 % (42.0-52.0); Hemoglobin 14.7 g/dl (14.0-18.0); Mean Corpuscular Hemoglobin 30.9 pg (25.0-34.0); Mean Corpuscular Hgb Conc 32.9 g/dL (32.0-36.0); Mean Corpuscular Volume 94.1 fL (80.0-100.0); Mean Platelet Volume 10.4 fL (9.4-12.4); Platelet Count 96 K/uL (130-400); RDW Coefficient of Variation 15.6 % (11.5-14.5); RDW Standard Deviation 53.7 fL (36.4-46.3); Red Blood Count 4.75 M/uL (4.70-6.10); White Blood Count 61.45 K/ul (4.8-10.8)
[2023-05-09 08:55] LABS: Basophils # (auto) 0.07 K/uL (0-0.2); Basophils % (auto) 0.1 %; Echinocytes 1+; Eosinophils # (auto) 0.02 K/uL (0-0.50); Immature Granulocytes # (auto) 0.26 K/uL (0.01-0.20); Immature Granulocytes % (auto) 0.4 %; Lymphocytes # (auto) 49.49 K/uL (1.2-3.4); Lymphocytes % (auto) 80.5 %; Monocytes # (auto) 1.46 K/uL (0.11-0.59); Monocytes % (auto) 2.4 %; Neutrophils # (auto) 10.15 K/uL (1.40-6.50); Neutrophils % (auto) 16.6 %; Platelet Estimate Decreased (Normal); Smudge Cells Present
[2023-05-09] MEDS: CLOPIDOGREL BISULFATE 75 MG TAB PO SCH (09:01)
[2023-05-09] MEDS: FINASTERIDE 5 MG TAB PO SCH (09:01)
[2023-05-09] MEDS: TAMSULOSIN HCL 0.4 MG CAP PO SCH (09:01)
[2023-05-09] MEDS: VALSARTAN 80 MG TAB PO SCH (09:01)
[2023-05-09] MEDS: methylPREDNISolone 40 MG in SYRINGE 0 ML IV SCH (09:01)
[2023-05-09] MEDS: cefTRIAXone SODIUM 1,000 MG in DEXTROSE 5% AD-VAN 50 ML IV SCH (13:23)
--- NOTE | 2023-05-09 14:30 | Hospitalist Progress Note ---
Date of Service May 09, 2023 Assessment & Plan (1) Acute confusion: Plan: Acute metabolic encephalopathy present on admission. Behavioral health assessment requested. Blood cultures negative. Urine culture remains pending. Continue Rocephin for now, day 2. Supportive care. Admission head CT scan negative. (2) History of stroke: Plan: Stable. Continue current medical manage (3) GERD (gastroesophageal reflux disease): Plan: Stable. Continue current medical manage (4) CVA (cerebral vascular accident): Plan: No acute cerebrovascular injury noted at this time. (5) BPH loc w/o ur obs/LUTS: Plan: Stable. Continue current medical management (6) CAD (coronary artery disease): Plan: Stable. Continue current medical manage (7) Cardiomyopathy: Plan: Stable. Continue current medical management (8) CLL (chronic lymphocytic leukemia): Plan: Chronic leukocytosis. Serial labs (9) Elevated troponin: Plan: No evidence of acute coronary syndrome. No chest pain. No acute EKG changes. (10) COPD (chronic obstructive pulmonary disease): Plan: Stable. Continue current medical management Plan To be determined. He probably will need SNF placement at discharge if mental status does not return to baseline Admission and Anticipated Discharge Date Admission Date: May 07, 2023 Subjective Awake. No distress. He remains encephalopathic. Blood cultures are negative. Urine culture is still pending. No definite evidence of infection but he remains on empiric Rocephin, day 2. Behavioral health assessment requested. OT and PT evaluations ordered. He probably will need SNF placement at discharge Review of Systems Review of Systems: The patient is unable to answer any questions regarding review of systems at this time Physical Exam Physical Exam: General-alert, disoriented. No fevers, no chills HEENT-head atraumatic and normocephalic, pupils equal and reactive to light, extraocular muscles intact Neck-no lymphadenopathy or thyromegaly, trachea midline Chest-clear to auscultation percussion. No rales wheezing or rhonchi Cardiac-regular rate and rhythm, normal S1 and S2 Abdomen-normal bowel sounds, nontender, no hepatosplenomegaly Extremities-moving all 4 extremities randomly. No peripheral edema Neuro-no focal deficits. Strength appears to be symmetrical. Psych-cannot assess due to disorientation Results & Data Results & Data Vital Signs (Past 12 Hours) Vital Signs Temp Pulse Pulse Resp BP Pulse Ox O2 Del Method 05/09/23 11:56 36.1 C L 54 L 16 160/79 H 92 Room Air 05/09/23 06:00 60 05/09/23 10:00 Room Air 05/09/23 07:30 36.3 C L 70 16 167/86 H 94 Room Air 05/09/23 04:05 36.8 C 68 18 152/64 H 96 Nasal Cannula O2 Flow Rate 05/09/23 11:56 05/09/23 06:00 05/09/23 10:00 05/09/23 07:30 05/09/23 04:05 2 Laboratory Results 05/09/23 07:38 05/09/23 07:38 PG Care Time/CCT Total # of Minutes Spent Total Time Spent with Patient: Total time spent is greater than 50% in coordination of care (as documented) at patient's floor/unit and/or counseling patient: Coding Level of Care Code 98090 SUB INP/OBS CARE 3/50MIN Diagnoses Acute confusion R41.0 History of stroke Z86.73 GERD (gastroesophageal reflux disease) K21.9 Esophagitis presence: esophagitis presence not specified CVA (cerebral vascular accident) I63.9 CVA mechanism: unspecified 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 CAD (coronary artery disease) I25.10 Cardiomyopathy I42.9 CLL (chronic lymphocytic leukemia) C91.90 Elevated troponin R77.8 COPD (chronic obstructive pulmonary disease) J44.9 (3) GERD (gastroesophageal reflux disease) Esophagitis presence: esophagitis presence not specified Qualified Code(s): K21.9 - Gastro-esophageal reflux disease without esophagitis (4) CVA (cerebral vascular accident) CVA mechanism: unspecified Qualified Code(s): I63.9 - Cerebral infarction, unspecified
[2023-05-09] MEDS: ATORVASTATIN 40 MG TAB PO SCH (20:16)
[2023-05-09] MEDS: ENOXAPARIN INJ 40 MG/0.4 ML SYR SQ SCH (20:17)
[2023-05-10] MEDS: OLANZapine 10 MG/2.1 ML SDV IM PRN (02:41)
[2023-05-10] MEDS: SODIUM CHLORIDE 0.9% 1000ML 1,000 ML IV SCH ×2 (04:56→22:17)
[2023-05-10 08:13] LABS: BUN Creatinine Ratio 21.6 (10-20); Creatinine Clr Calc Pharmacy 36.1 ml/min; Est GFR (African American) 55.6 ml/min; Potassium 3.4 mmol/L (3.5-5.1)
[2023-05-10 08:18] LABS: Hematocrit (blood only) 40.5 % (42.0-52.0); Hemoglobin 13.1 g/dl (14.0-18.0); Mean Corpuscular Hemoglobin 30.4 pg (25.0-34.0); Mean Corpuscular Hgb Conc 32.3 g/dL (32.0-36.0); Mean Platelet Volume 10.6 fL (9.4-12.4); Platelet Count 88 K/uL (130-400); RDW Coefficient of Variation 15.5 % (11.5-14.5); RDW Standard Deviation 53.3 fL (36.4-46.3); Red Blood Count 4.31 M/uL (4.70-6.10); White Blood Count 51.62 K/ul (4.8-10.8)
[2023-05-10 08:42] LABS: Basophils # (auto) 0.17 K/uL (0-0.2); Basophils % (auto) 0.3 %; Eosinophils # (auto) 0.03 K/uL (0-0.50); Eosinophils % (auto) 0.1 %; Immature Granulocytes # (auto) 0.22 K/uL (0.01-0.20); Immature Granulocytes % (auto) 0.4 %; Lymphocytes # (auto) 40.95 K/uL (1.2-3.4); Lymphocytes % (auto) 79.3 %; Monocytes # (auto) 1.18 K/uL (0.11-0.59); Monocytes % (auto) 2.3 %; Neutrophils # (auto) 9.07 K/uL (1.40-6.50); Neutrophils % (auto) 17.6 %; Smudge Cells Present
[2023-05-10] MEDS: CLOPIDOGREL BISULFATE 75 MG TAB PO SCH (10:01)
[2023-05-10] MEDS: VALSARTAN 80 MG TAB PO SCH (10:01)
[2023-05-10] MEDS: TAMSULOSIN HCL 0.4 MG CAP PO SCH (10:02)
[2023-05-10] MEDS: FINASTERIDE 5 MG TAB PO SCH (10:02)
[2023-05-10] MEDS: methylPREDNISolone 40 MG in SYRINGE 0 ML IV SCH (10:02)
[2023-05-10] MEDS ORDERED: POTASSIUM CHLORIDE CRTAB 20 MEQ TABCR PO STA (13:11)
--- NOTE | 2023-05-10 13:37 | Psychiatric Consultation ---
Date of Consultation May 10, 2023 Impression / Recommendations Impression 87 yo man who resides at [facility] with history of CLL, stroke, signs of possible mild cognitive impairment on mini-cog testing in November 2022 (abnormal clock draw, good word recall), COPD, recent COVID infection ~6 weeks ago, HTN, HLD and BPH admitted medically for acute confusion. Psychiatry consulted for "encephalopathy" recommendations. Diagnostically consistent with encephalopathy/delirium medical workup ongoing with possible sundowning component given recent mini-cog testing suggestive of possible early mild cognitive impairments and history of stroke. No recent brain MRI but head CT on arrival to ED showing signs of chronic microvascular ischemic disease. Goal in delirium and dementia is to avoid medication management of behaviors if possible by maximizing non-pharmacologic strategies for delirium improvement and behavioral management. However, given worsening agitation/aggression could consider starting antipsychotic as risk/benefit profile now favors treatment and ideally could help lessen need for IM medications. Note all antipsychotic medications carry black box warning for increased risk of all-cause mortality in setting of dementia/cognitive impairment. (1) Encephalopathy: (2) Acute confusion: Plan -1-on-1 prn for agitation -Consider melatonin 3mg qhs as this can help with delirium -Consider seroquel 12.5 mg qhs and can titrate up to 25mg BID for behavioral management as needed; would check EKG QTc routinely -Continue medical workup to rule out and treat any underlying causes contributing to potential delirium, avoid or limit use of deliriogenic medications (benzodiazepines, opioids, anticholinergics) -Continue with delirium prevention measures: raising blinds during the day, closing at night, frequent re-orientation, contact with family/friends, explaining procedures/nursing care measures prior to physical contact, correct any hearing and visual impairments -For behavioral emergency: olanzapine 2.5 mg IM x 1 (DO NOT exceed 10mg per 24 hours, check EKG if IM dose required, NEVER co-administer with IM or IV benzodiazepines). Psych History Identifying Data 87 yo man who resides at [facility] with history of CLL, stroke, signs of possible mild cognitive impairment on mini-cog testing in November 2022 (abnormal clock draw, good word recall), COPD, recent COVID infection ~6 weeks ago, HTN, HLD and BPH admitted medically for acute confusion. Psychiatry consulted for "encephalopathy" recommendations. Chief Complaint "I can not say the same about you". History of Present Illness Toro was brought to the hospital after significant and abrupt change in cognition after being found confused and wandering outside without clothing. Encephalopathy workup has been ongoing. He required IM olanzapine at about 6pm on 05/08/2023 with limited benefit but improvement in agitation after subsequent order for tylenol. Last night at about 2:41am required olanzapine 5mg IM dose for agitation. Today he is sitting in his chair with a longtime friend at bedside. He is not oriented and per his friend references an old town where he grew up in [place]. He states frustration with not having his clothes and notes "if I could just have someone take me home or go get the bus". Can recall that he lives at [facility] when asked. Cannot recall events from his oncologist visit last when prompted by his friend who was also at the appointment. He denies any physical pain or symptoms when asked multiple times stating "no I'm fine" except later stating he sometimes has allergy symptoms. Allergies Allergy/AdvReac Type Severity Reaction Status Date / Time KVNG Inhibitors AdvReac Mild Cough Verified 12/09/22 14:56 codeine AdvReac Mild Nausea Verified 12/09/22 14:56 Home Medications Medication Instructions Recorded Confirmed Type calcium carbonate 600 mg-vitamin 1 tab PO BID 05/16/19 12/09/22 History D3 10 mcg (400 unit) tablet (Calcium 600 + D(3)) cholecalciferol (vitamin D3) 50 2,000 unit PO QAM 05/16/19 12/09/22 History mcg (2,000 unit) tablet (Vitamin D3) docusate sodium 100 mg capsule 100 mg PO DAILY PRN 07/15/22 12/09/22 History (Colace) tamsulosin 0.4 mg capsule 0.4 mg PO QAM #90 caps 08/05/22 12/09/22 Rx amoxicillin 500 mg tablet 2,000 mg PO BID 09/20/22 12/09/22 History polyethylene glycol 3350 17 17 g PO DAILY PRN constipation 09/20/22 12/09/22 History gram/dose oral powder (Miralax) clotrimazole-betamethasone 1 1 applic topical .qhs #45 grams 10/18/22 12/09/22 Rx %-0.05 % topical cream fluticasone propionate 50 2 spray intranasal DAILY Allergic 10/26/22 12/09/22 Rx mcg/actuation nasal Symptoms #16 grams spray,suspension acalabrutinib maleate 100 mg 100 mg PO DAILY #1 tab 11/11/22 12/09/22 Rx tablet (Calquence (acalabrutinib maleate)) peg 400-propylene glycol (PF) 0.4 1 drp ophthalmic (eye) BID PRN 12/09/22 12/09/22 History %-0.3 % eye drops in a dropperette (Systane (PF)) famotidine 40 mg tablet 40 mg PO DAILY #90 tabs 12/13/22 Rx nystatin 100,000 unit/gram topical 1 applic topical BID PRN rash #30 12/20/22 Rx cream grams clopidogrel 75 mg tablet 75 mg PO DAILY #90 tabs 02/20/23 Rx finasteride 5 mg tablet 5 mg PO QAM #90 tabs 02/20/23 Rx valsartan 80 mg tablet 80 mg PO QAM #90 tabs 02/20/23 Rx potassium chloride 10 mEq 10 meq PO BID #60 tabs 02/28/23 Rx tablet,extended release acetaminophen 325 mg tablet 325 mg PO QID #120 tabs 03/02/23 Rx atorvastatin 40 mg tablet 40 mg PO HS #90 tabs 03/17/23 Rx molnupiravir 200 mg capsule (EUA) 800 mg PO Q12H 5 days #40 caps 03/23/23 03/23/23 Rx Patient History Medical History Abscess Aortic aneurysm - S/p TEVAR (2016) - Aortic stent graft seen per 11/15/[address] scan - Per Chest CT 01/14/21= 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 Evidence for stent repair of the descending thoracic aorta. 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 Bifascicular block Chronic, dating back to at least 08/2018 per chart review Bilateral inguinal hernia BPH (benign prostatic hyperplasia) WITH URINARY LEAKAGE CAD (coronary artery disease) Nonobstructive per cardio records (pt denies cardiac cath per 01/18/22 cardio note_ Cardiomyopathy EF 60-65% per 06/2021 ECHO Carotid artery disease S/p left carotid endarterectomy (2013) Per neck CTA 10/23/20= No significant carotid artery disease CKD (chronic kidney disease) CLL (chronic lymphocytic leukemia) Hearing deficit History of seizure [place] r/t hypoglycemic episodes (last ) History of stroke Initial stroke 2007- felt secondary to carotid disease (s/p left CEA) Possible second CVA shortly after first CVA Per records- CVA 10/23/20 On Plavix No residual effects Hyperlipidemia Hypertension Left thigh pain Osteoporosis Right inguinal hernia Surgical History H/O right inguinal hernia repair (08/03/20) Open right inguinal hernia repair. Dr. Wright 08/03/2020 H/O thoracic aortic aneurysm repair Hip fracture requiring operative repair LEFT HIP History of carotid endarterectomy LEFT History of cataract surgery RT/LEFT History of hernia surgery LEFT INGUINAL 1980 History of left hip replacement History of right hip replacement History of tonsillectomy 194 Hx of nasal polypectomy Nausea and vomiting after administration of anesthetic agent S/P left inguinal hernia repair (03/21/22) Recurrent left inguinal hernia repair. Dr. Wright Status post incision and drainage (06/26/20) incision and drainage in the office of the left posterior thigh abscess 06/26/20 Dr. Wright in office Family History Brother Colorectal cancer Stroke Family history of diabetes mellitus Father Heart disease Hypertension Stroke Other No family history of adverse response to anesthesia Denies family history of Ovarian cancer Prostate cancer Myocardial infarction Breast cancer Social History Smoking Status: Former smoker Tobacco Type: Cigarettes packs per day: 0.75; Cigarettes Per Day: 12 YEARS AGO; Second Hand Exposure: No; Do You Dip or Chew Tobacco: No; Hx Alcohol Use: Yes Alcohol type: wine Alcohol Intake Frequency: 4 or More x per/Week Alcohol Intake Frequency Comment: 14 Hx Substance Use: No Preferred Language: Romanian Communication Ability: Effective Communication Ability Comment: Pt. EMMONAK bilaterally Visual Impairment: No Limitations Hearing Ability: Use of Hearing Aid Squaring Shear Operator Required: No Beliefs That Will Affect Care: None marital status: / Current Living Situation: Personal Care Facility current occupational status: retired How many Children do You have: 0 Feels Safe at Home: Yes Childhood Exposure to Second-Hand Smoke: Yes Dental Care, Regularly: Yes Physical Activity Frequency: 1-2 Times per Week Seatbelt Use: always Sunscreen Use: No Assistive Devices: Walker Physical Exam Psychiatric: Orientation: alert, oriented to person and + guarded; + not oriented to place and + not oriented to time Apperance: appropriately dressed and + disheveled Eye Contact: + fair eye contact Motor Behavior: no abnormal motor movements Speech: + abnormal rate/rhythm/volume of speech (slight dysarthria at times, slight accent) Affect: + constricted affect Mood: + irritable mood Thought Process: + looseness of associations Thought Content: reality based without delusions Insight: + severely impaired insight Judgment: + limited judgement Vital Signs (Past 24 Hours): Last Vital Signs Temp 36.5 C 05/10/23 11:33 Pulse 64 05/10/23 11:33 Resp 16 05/10/23 11:33 BP 183/89 H 05/10/23 11:33 Pulse Ox 93 05/10/23 11:33 O2 Del Method Room Air 05/10/23 11:33 O2 Flow Rate 2 05/09/23 04:05 Review of Systems All systems reviewed & are unremarkable except as noted in HPI & below Results & Data (PSY) Laboratory Results Na+ stable Diagnostic Findings QTc 460ms on 05/07/2023 Medications Administered Acetaminophen (Acetaminophen 325 Mg Tab) 650 mg PO Q4H PRN PRN Reason: Pain or Agitation Stop: 06/07/23 19:39 Last Admin: 05/08/23 19:49 Dose: 650 mg Documented By: EUGENIA Atorvastatin Calcium (Atorvastatin 40 Mg Tab) 40 mg PO [facility] Stop: 06/06/23 20:59 Last Admin: 05/09/23 20:16 Dose: 40 mg Documented By: Admin: 05/08/23 21:02 Dose: 40 mg Documented By: Admin: 05/07/23 20:48 Dose: 40 mg Documented By: JONNA Clopidogrel Bisulfate (Clopidogrel Bisulfate 75 Mg Tab) 75 mg PO DAILY JORGE Stop: 06/07/23 08:59 Last Admin: 05/10/23 10:01 Dose: 75 mg Documented By: Admin: 05/09/23 09:01 Dose: 75 mg Documented By: Admin: 05/08/23 09:01 Dose: 75 mg Documented By: ANDREA Enoxaparin Sodium (Enoxaparin Inj 40 Mg/0.4 Ml Syr) 40 mg SQ HS JORGE Stop: 06/06/23 17:10 Last Admin: 05/09/23 20:17 Dose: 40 mg Documented By: Admin: 05/08/23 21:02 Dose: 40 mg Documented By: Admin: 05/07/23 18:16 Dose: 40 mg Documented By: NAHED Finasteride (Finasteride 5 Mg Tab) 5 mg PO QAM JORGE Stop: 06/07/23 08:59 Last Admin: 05/10/23 10:02 Dose: 5 mg Documented By: Admin: 05/09/23 09:01 Dose: 5 mg Documented By: Admin: 05/08/23 09:01 Dose: 5 mg Documented By: ANDREA Methylprednisolone 40 mg/ (Syringe) 0.64 mls @ 1.5 mls/min IV DAILY JORGE Stop: 06/06/23 08:59 Last Admin: 05/10/23 10:02 Dose: 1.5 mls/min Documented By: Admin: 05/09/23 09:01 Dose: 1.5 mls/min Documented By: Admin: 05/08/23 09:51 Dose: 1.5 mls/min Documented By: Admin: 05/07/23 20:48 Dose: 1.5 mls/min Documented By: JONNA Olanzapine (Olanzapine 10 Mg/2.1 Ml Sdv) 5 mg IM Q6 PRN PRN Reason: Agitation Stop: 05/10/23 18:24 Last Admin: 05/10/23 02:41 Dose: 5 mg Documented By: Admin: 05/08/23 18:35 Dose: 5 mg Documented By: ANDREA Tamsulosin HCl (Tamsulosin Hcl 0.4 Mg Cap) 0.4 mg PO QAM JORGE Stop: 06/07/23 08:59 Last Admin: 05/10/23 10:02 Dose: 0.4 mg Documented By: Admin: 05/09/23 09:01 Dose: 0.4 mg Documented By: Admin: 05/08/23 09:01 Dose: 0.4 mg Documented By: ANDREA Tramadol HCl (Tramadol Hcl 50 Mg Tablet) 50 mg PO Q6H PRN PRN Reason: Pain Stop: 06/07/23 17:29 Last Admin: 05/08/23 17:41 Dose: 50 mg Documented By: ANDREA Valsartan (Valsartan 80 Mg Tab) 80 mg PO QAM [facility] Stop: 06/07/23 08:59 Last Admin: 05/10/23 10:01 Dose: 80 mg Documented By: Admin: 05/09/23 09:01 Dose: 80 mg Documented By: Admin: 05/08/23 09:01 Dose: 80 mg Documented By: ANDREA Coding Level of Care Code 93248 IN/OBS CONSULT LVL 3,45M Diagnoses Encephalopathy G93.40 Acute confusion R41.0 Time Spent (min) 50
--- NOTE | 2023-05-10 14:43 | Hospitalist Progress Note ---
Date of Service May 10, 2023 Assessment & Plan (1) Acute confusion: Plan: Acute metabolic encephalopathy present on admission. Behavioral health assessment appreciated. Blood and urine cultures are negative. Rocephin has been discontinued. Will obtain brain MRI scan if able. Admission head CT scan negative. Will hold off on LP and CSF studies since he does not appear to have an infectious encephalitis at this point (2) History of stroke: Plan: Stable. Continue current medical manage (3) GERD (gastroesophageal reflux disease): Plan: Stable. Continue current medical manage (4) CVA (cerebral vascular accident): Plan: No acute cerebrovascular injury noted at this time. (5) BPH loc w/o ur obs/LUTS: Plan: Stable. Continue current medical management (6) CAD (coronary artery disease): Plan: Stable. Continue current medical manage (7) Cardiomyopathy: Plan: Stable. Continue current medical management (8) CLL (chronic lymphocytic leukemia): Plan: Chronic leukocytosis. Serial labs (9) Elevated troponin: Plan: No evidence of acute coronary syndrome. No chest pain. No acute EKG changes. (10) COPD (chronic obstructive pulmonary disease): Plan: Stable. Continue current medical management Plan It appears he will need SNF placement at the time of discharge which could possibly be as early as tomorrow, May 11 Admission and Anticipated Discharge Date Admission Date: May 07, 2023 Subjective Alert but oriented to name only. He is complaining about the food brought up from the cafeteria. Urine cultures and blood cultures are negative. Rocephin has been discontinued. Will try to obtain brain MRI scan if he will cooperate. It appears he is going to need SNF placement at the time of discharge. Hopefully his mental status will return to baseline. He does not appear to have an infectious cellulitis. Will defer on LP and CSF studies for now. Potassium replacement ordered Review of Systems Review of Systems: The patient is unable to answer any questions regarding review of systems at this time Physical Exam Physical Exam: General-alert, disoriented. No fevers, no chills HEENT-head atraumatic and normocephalic, pupils equal and reactive to light, ex traocular muscles intact Neck-no lymphadenopathy or thyromegaly, trachea midline Chest-clear to auscultation percussion. No rales wheezing or rhonchi Cardiac-regular rate and rhythm, normal S1 and S2 Abdomen-normal bowel sounds, nontender, no hepatosplenomegaly Extremities-moving all 4 extremities randomly. No peripheral edema Neuro-no focal deficits. Strength appears to be symmetrical. Psych-cannot assess due to disorientation Results & Data Results & Data Vital Signs (Past 12 Hours) Vital Signs Temp Pulse Pulse Resp BP Pulse Ox O2 Del Method 05/10/23 11:33 36.5 C 64 16 183/89 H 93 Room Air 05/10/23 10:00 Room Air 05/10/23 06:00 72 05/10/23 07:17 36.6 C 69 16 174/86 H 93 Room Air 05/10/23 04:02 36.4 C L 80 20 186/87 H 92 Room Air Laboratory Results 05/10/23 07:27 05/10/23 07:27 PG Care Time/CCT Total # of Minutes Spent Total Time Spent with Patient: Total time spent is greater than 50% in coordination of care (as documented) at patient's floor/unit and/or counseling patient: Coding Level of Care Code 96082 SUB INP/OBS CARE 3/50MIN Diagnoses Acute confusion R41.0 History of stroke Z86.73 GERD (gastroesophageal reflux disease) K21.9 Esophagitis presence: esophagitis presence not specified CVA (cerebral vascular accident) I63.9 CVA mechanism: unspecified 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 CAD (coronary artery disease) I25.10 Cardiomyopathy I42.9 CLL (chronic lymphocytic leukemia) C91.90 Elevated troponin R77.8 COPD (chronic obstructive pulmonary disease) J44.9 (3) GERD (gastroesophageal reflux disease) Esophagitis presence: esophagitis presence not specified Qualified Code(s): K21.9 - Gastro-esophageal reflux disease without esophagitis (4) CVA (cerebral vascular accident) CVA mechanism: unspecified Qualified Code(s): I63.9 - Cerebral infarction, unspecified
[2023-05-10] MEDS: ENOXAPARIN INJ 40 MG/0.4 ML SYR SQ SCH (20:22)
[2023-05-10] MEDS: ATORVASTATIN 40 MG TAB PO SCH (20:22)
--- NOTE | 2023-05-10 20:31 | Magnetic Resonance Report ---
Exam(s): MRI HEAD Without Contrast EXAM: MR Head Without Intravenous Contrast CLINICAL HISTORY: Reason for exam: encephalopathy. TECHNIQUE: Magnetic resonance images of the head/brain without intravenous contrast in multiple planes. COMPARISON: CT head 05/07/2023. FINDINGS: Brain: Scattered acute embolic infarctions in the bilateral basal nuclei, frontal lobes, and left temporal stem. Right frontal convexity extra axial mass measuring up to 1.5 cm, likely a small meningioma. Global parenchymal volume loss with chronic microvascular ischemic changes. No hemorrhage. Ventricles: No ventriculomegaly. Bones/joints: Unremarkable. Nasal cavity: Polypoid soft tissue in the nasal cavity likely representing polyps. Sinuses: Unremarkable as visualized. Mastoid air cells: Bilateral mastoid effusions. Orbits: Bilateral lens replacement. IMPRESSION: 1. Scattered acute embolic infarctions in the bilateral basal nuclei, frontal lobes, and left temporal stem. 2. Right frontal convexity extra axial mass measuring up to 1.5 cm, likely a small meningioma. No significant mass effect. 3. Global parenchymal volume loss with chronic microvascular ischemic changes. 4. Polypoid soft tissue in the nasal cavity likely representing polyps. Recommend direct visualization. Communications: Call Doctor Stroke Electronically signed by: Dirk Trinh MD 05/10/23 20:30 PM
--- NOTE | 2023-05-10 21:34 | Communication Note ---
Date of Service: May 10, 2023 Was notified of Brain MRI stat rad results ~2100. Results with: scattered acute embolic infarctions in the bilateral basal nuclei, frontal lobes, and left temporal stem. Upgraded to PCU on stroke protocol. Made NPO. He can still get his tube feeds overnight. He is already on plavix/statin. Will defer to neuro for addition of ASA. Anticoagulation held. He does have h/o previous stroke. Neuro consulted. Echo, CTA head/neck, venous doppler bilateral LE pending. I did notify Shikha Toussaint his primary contact of the situation. She will relay to patient's nephew (POA) who is currently in [place]. Resident Activity Tracking Resident Involvement: Resident Care Provided Care Provided: Adult Hospital Medicine
[2023-05-10] MEDS ORDERED: PHARMACIST DISCHARGE MED REC CONSULT PRN (22:02)
[2023-05-10] MEDS ORDERED: ACETAMINOPHEN 1,000 MG/100 ML VIAL IV PRN (22:02)
[2023-05-10] MEDS ORDERED: ONDANSETRON INJ 2 MG/ML 2 ML VIAL IV PRN (22:02)
[2023-05-10] MEDS ORDERED: IOVERSOL 350 MG 125mL Prefilled Syringe IV ONE (23:06)
--- NOTE | 2023-05-11 00:17 | CT Scan Report ---
Exam(s): CTA HEAD With Contrast IV Amt: 114 ml optiray 350 EXAM: CT Angiography Head With Intravenous Contrast CLINICAL HISTORY: Reason for exam: stroke. TECHNIQUE: Axial computed tomographic angiography images of the head with intravenous contrast. Automated exposure control was utilized for the study. A dose lowering technique was utilized adhering to the principles of ALARA. MIP reconstructed images were created and reviewed. CONTRAST: Patient received 114 ml optiray 350 of IV contrast COMPARISON: No relevant prior studies available. FINDINGS: Right internal carotid artery: No acute findings. Intracranial segment is patent with no significant stenosis. No aneurysm. Right anterior cerebral artery: Unremarkable. No occlusion or significant stenosis. No aneurysm. Right middle cerebral artery: Unremarkable. No occlusion or significant stenosis. No aneurysm. Right posterior cerebral artery: Unremarkable. No occlusion or significant stenosis. No aneurysm. Right vertebral artery: Unremarkable as visualized. Left internal carotid artery: No acute findings. Intracranial segment is patent with no significant stenosis. No aneurysm. Left anterior cerebral artery: Unremarkable. No occlusion or significant stenosis. No aneurysm. Left middle cerebral artery: Unremarkable. No occlusion or significant stenosis. No aneurysm. Left posterior cerebral artery: Unremarkable. No occlusion or significant stenosis. No aneurysm. Left vertebral artery: Unremarkable as visualized. Basilar artery: Unremarkable. No occlusion or significant stenosis. No aneurysm. IMPRESSION: Normal head CTA. Electronically signed by: Jesús Butt MD 05/11/23 00:16 AM
--- NOTE | 2023-05-11 00:21 | CT Scan Report ---
Exam(s): CTA NECK With Contrast IV Amt: 114 ml optiray 350 EXAM: CT Angiography Neck With Intravenous Contrast CLINICAL HISTORY: Reason for exam: stroke. TECHNIQUE: Routine carotid CT angiography protocol was performed with intravenous contrast. NASCET criteria using the distal ICAs for comparison were used for evaluation of stenoses. CTDI is 37 mGy and DLP is 506.24 mGy-cm. Automated exposure control was utilized for the study. A dose lowering technique was utilized adhering to the principles of ALARA. MIP reconstructed images were created and reviewed. CONTRAST: Patient received 114 ml optiray 350 of IV contrast COMPARISON: None. FINDINGS: VASCULATURE: Right common carotid artery: Mild atherosclerotic change involving the carotid bulb. No occlusion or significant stenosis. No dissection. Right internal carotid artery: Unremarkable. Extracranial segment is patent with no occlusion or significant stenosis. No dissection. Right external carotid artery: Unremarkable. No occlusion. Right vertebral artery: Unremarkable. No occlusion or significant stenosis. No dissection. Left common carotid artery: moderate atherosclerotic change of the left common carotid artery . Moderate atherosclerotic change of the proximal ICA without focal stenosis. No dissection. Left internal carotid artery: See above. Left external carotid artery: Unremarkable. No occlusion. Left vertebral artery: Unremarkable. No occlusion or significant stenosis. No dissection. Aorta: postoperative changes endovascular thoracic aortic aneurysm repair. NECK: Bones/joints: Unremarkable. Soft tissues: Unremarkable. Lung apices: Clear. CAROTID STENOSIS REFERENCE USING NASCET CRITERIA: % ICA stenosis = (1 - narrowest ICA diameter/diameter of distal cervical ICA) x 100. Mild - <50% stenosis. Moderate - 50-69% stenosis. Severe - 70-94% stenosis. Near occlusion - 95-99% stenosis. Occluded - 100% stenosis. IMPRESSION: No acute findings in the arteries of the neck. Electronically signed by: Jesús Butt MD 05/11/23 00:20 AM
--- NOTE | 2023-05-11 00:27 | Ultrasound Report ---
Exam(s): US VENOUS BILATERAL LOWER EXTREMITIES EXAM: US Duplex Bilateral Lower Extremities Veins CLINICAL HISTORY: Reason for exam: r/o DVT. TECHNIQUE: Real-time duplex ultrasound scan of the bilateral lower extremity veins integrating B-mode two-dimensional vascular structure, Doppler spectral analysis, color flow Doppler imaging and compression. COMPARISON: No relevant prior studies available. FINDINGS: Right deep veins: Unremarkable. No DVT in the right common femoral, femoral, proximal deep femoral or popliteal veins. The veins demonstrate normal color flow, are normally compressible, with normal phasic flow and/or augmentation response. Occlusive thrombus is seen within 1 of the 2 paired the peroneal veins. Right superficial veins: Unremarkable. No thrombus in the visualized right great saphenous vein. Left deep veins: Unremarkable. No DVT in the left common femoral, femoral, proximal deep femoral or popliteal veins. The veins demonstrate normal color flow, are normally compressible, with normal phasic flow and/or augmentation response .Occlusive thrombus is seen within 1 of the 2 paired peroneal veins. Left superficial veins: Unremarkable. No thrombus in the visualized left great saphenous vein. Soft tissues: No acute findings. No popliteal cyst. Other findings: IMPRESSION: Bilateral lower extremity peroneal vein DVT. Communications: Call Doctor DVT acute, progressing Electronically signed by: Jesús Butt MD 05/11/23 00:26 AM
[2023-05-11] MEDS ORDERED: Heparin IV Adult Wt-Based Low-Dose *NO* Bolus Protocol IV SCH (00:44)
--- NOTE | 2023-05-11 00:45 | Communication Note ---
Date of Service: May 11, 2023 Venous doppler bilateral LE with bilateral peroneal vein DVT. Started on low dose heparin gtt without bolus. Resident Activity Tracking Resident Involvement: Resident Care Provided Care Provided: Adult Hospital Medicine
[2023-05-11 02:37] LABS: INR 1.2 (0.9-1.1); Partial Thromboplastin Time 28.4 Seconds (21.0-31.0); Prothrombin Time 12.5 Seconds (9.0-12.0)
[2023-05-11] MEDS: HEPARIN SODIUM/DEXTROSE 25,000 UNITS/500 ML BAG IV SCH (02:45)
[2023-05-11 02:53] LABS: Hematocrit (blood only) 41.2 % (42.0-52.0); Hemoglobin 13.6 g/dl (14.0-18.0); Mean Corpuscular Hemoglobin 30.9 pg (25.0-34.0); Mean Corpuscular Volume 93.6 fL (80.0-100.0); Mean Platelet Volume 10.4 fL (9.4-12.4); Platelet Count 92 K/uL (130-400); RDW Coefficient of Variation 15.8 % (11.5-14.5); White Blood Count 55.41 K/ul (4.8-10.8)
[2023-05-11 03:06] LABS: Basophils # (auto) 0.08 K/uL (0-0.2); Basophils % (auto) 0.1 %; Echinocytes 1+; Immature Granulocytes # (auto) 0.17 K/uL (0.01-0.20); Immature Granulocytes % (auto) 0.3 %; Lymphocytes # (auto) 46.02 K/uL (1.2-3.4); Lymphocytes % (auto) 83.1 %; Monocytes # (auto) 0.88 K/uL (0.11-0.59); Monocytes % (auto) 1.6 %; Neutrophils # (auto) 8.26 K/uL (1.40-6.50); Neutrophils % (auto) 14.9 %
[2023-05-11 09:10] LABS: Hematocrit (blood only) 45.3 % (42.0-52.0); Hemoglobin 14.9 g/dl (14.0-18.0); Mean Corpuscular Hemoglobin 30.5 pg (25.0-34.0); Mean Corpuscular Hgb Conc 32.9 g/dL (32.0-36.0); Mean Corpuscular Volume 92.6 fL (80.0-100.0); Mean Platelet Volume 10.6 fL (9.4-12.4); Platelet Count 113 K/uL (130-400); RDW Coefficient of Variation 15.9 % (11.5-14.5); RDW Standard Deviation 52.4 fL (36.4-46.3); Red Blood Count 4.89 M/uL (4.70-6.10); White Blood Count 72.12 K/ul (4.8-10.8)
[2023-05-11 09:23] LABS: BUN Creatinine Ratio 22.2 (10-20); Calcium 9.5 mg/dl (8.6-10.3); Chol HDL Ratio 2.7 (0-5); Creatinine Clr Calc Pharmacy 44.8 ml/min; Est GFR (African American) 72.2 ml/min; Est GFR (Non-African American) 62.3 ml/min; Potassium 3.6 mmol/L (3.5-5.1)
[2023-05-11 09:29] LABS: Partial Thromboplastin Ratio 1.1; Partial Thromboplastin Time 32.2 Seconds (21.0-31.0)
[2023-05-11 10:10] LABS: Basophils # (auto) 0.09 K/uL (0-0.2); Basophils % (auto) 0.1 %; Eosinophils # (auto) 0.06 K/uL (0-0.50); Eosinophils % (auto) 0.1 %; Immature Granulocytes # (auto) 0.25 K/uL (0.01-0.20); Immature Granulocytes % (auto) 0.3 %; Lymphocytes # (auto) 61.08 K/uL (1.2-3.4); Lymphocytes % (auto) 84.7 %; Monocytes # (auto) 1.17 K/uL (0.11-0.59); Monocytes % (auto) 1.6 %; Neutrophils # (auto) 9.47 K/uL (1.40-6.50); Neutrophils % (auto) 13.2 %; Smudge Cells Present
[2023-05-11] MEDS: methylPREDNISolone 40 MG in SYRINGE 0 ML IV SCH (10:15)
[2023-05-11] MEDS: SODIUM CHLORIDE 0.9% 1000ML 1,000 ML IV SCH (10:16)
[2023-05-11] MEDS ORDERED: HEPARIN SOD (PORCINE) 1000 UNIT/ML IV ONE ×2 (10:21→18:15)
[2023-05-11 10:25] LABS: Estimated Average Glucose 103 mg/dl; Hemoglobin A1C 5.2 % (4.5-5.6)
--- NOTE | 2023-05-11 10:25 | Neurology Consultation ---
Date of Consultation May 11, 2023 Assessment & Plan (1) Cardioembolic stroke: Encephalopathy now explained by cardioembolic stroke seen on MRI. Could potentially be secondary to hypercoagulability from CLL vs intrinsic heart disease. DVT also noted in the lower extremities, a PFO could explain the stroke though would not traveler changer. I agree with cautious anticoagulation with close platelet monitoring as he is thrombocytopenic. Would NOT add antiplatelet despite his athero given the thrombocytopenia and risk of hemorrhage on both agents. Continue cardioembolic workup. Prognosis will be primarily affected by his dysphagia, recommend speech therapy follow-up. -- Agree with anticoagulation for DVT, okay from a neuro perspective -- No antiplatelet as above -- Echo w/ bubble study -- Continue telemetry but outpatient event monitoring wouldnt traveler changer as he is already anticoagulated -- Goal BP is normotension, does not need permissive HTN -- Therapy evals including speech therapy specifically as he is still NPO -- Please contact us with further questions, will follow for echo. Telehealth Consultation Telehealth Information Telehealth Information: I performed this visit using a real-time telehealth connection between my location and the patients location ([facility]). After connecting through interactive tele-video, patient was identified by name and date of and/or wristband check.Patient (or authorized healthcare service center representative) was informed that this was a telemedicine visit and it was being conducted confidentially over secure lines. My office door was closed and no one else was present in the room with me.Patient (or authorized healthcare service center representative) provided consent to proceed with the visit, expressed an understanding of privacy and security of the telemedicine visit, and gave permission to have a hospital service center representative in the room in order to assist with the visit and to conduct portions of the visit, as needed. I informed the patient (or authorized healthcare service center representative) that I reviewed their record and presented the opportunity for them to ask any questions regarding the visit today. The patient agreed to participate. History of Present Illness Reason for Consultation: Stroke Requesting Physician: Dr. Walker Attending Physician: Haseeb Walker MD History of Present Illness Randal Kline is an 87 yo M with a history of CLL and dementia presenting from his group home with altered mental status. The patient has remained confused throughout his hospital course with no other cause identified. MRI was performed in the setting of this persistent encephalopathy and was found to have multifocal embolic stroke. The patient has no comprehension of his current stroke and remains disoriented and unable to contribute to the history. Allergies Allergy/AdvReac Type Severity Reaction Status Date / Time KVNG Inhibitors AdvReac Mild Cough Verified 12/09/22 14:56 codeine AdvReac Mild Nausea Verified 12/09/22 14:56 Home Medications Medication Instructions Recorded Confirmed Type calcium carbonate 600 mg-vitamin 1 tab PO BID 05/16/19 12/09/22 History D3 10 mcg (400 unit) tablet (Calcium 600 + D(3)) cholecalciferol (vitamin D3) 50 2,000 unit PO QAM 05/16/19 12/09/22 History mcg (2,000 unit) tablet (Vitamin D3) docusate sodium 100 mg capsule 100 mg PO DAILY PRN 07/15/22 12/09/22 History (Colace) tamsulosin 0.4 mg capsule 0.4 mg PO QAM #90 caps 08/05/22 12/09/22 Rx amoxicillin 500 mg tablet 2,000 mg PO BID 09/20/22 12/09/22 History polyethylene glycol 3350 17 17 g PO DAILY PRN constipation 09/20/22 12/09/22 His tory gram/dose oral powder (Miralax) clotrimazole-betamethasone 1 1 applic topical .qhs #45 grams 10/18/22 12/09/22 Rx %-0.05 % topical cream fluticasone propionate 50 2 spray intranasal DAILY Allergic 10/26/22 12/09/22 Rx mcg/actuation nasal Symptoms #16 grams spray,suspension acalabrutinib maleate 100 mg 100 mg PO DAILY #1 tab 11/11/22 12/09/22 Rx tablet (Calquence (acalabrutinib maleate)) peg 400-propylene glycol (PF) 0.4 1 drp ophthalmic (eye) BID PRN 12/09/22 12/09/22 History %-0.3 % eye drops in a dropperette (Systane (PF)) famotidine 40 mg tablet 40 mg PO DAILY #90 tabs 12/13/22 Rx nystatin 100,000 unit/gram topical 1 applic topical BID PRN rash #30 12/20/22 Rx cream grams clopidogrel 75 mg tablet 75 mg PO DAILY #90 tabs 02/20/23 Rx finasteride 5 mg tablet 5 mg PO QAM #90 tabs 02/20/23 Rx valsartan 80 mg tablet 80 mg PO QAM #90 tabs 02/20/23 Rx potassium chloride 10 mEq 10 meq PO BID #60 tabs 02/28/23 Rx tablet,extended release acetaminophen 325 mg tablet 325 mg PO QID #120 tabs 03/02/23 Rx atorvastatin 40 mg tablet 40 mg PO HS #90 tabs 03/17/23 Rx molnupiravir 200 mg capsule (EUA) 800 mg PO Q12H 5 days #40 caps 03/23/23 03/23/23 Rx Patient History Medical History Abscess Aortic aneurysm - S/p TEVAR (2016) - Aortic stent graft seen per 11/15/[address] scan - Per Chest CT 01/14/21= 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 Evidence for stent repair of the descending thoracic aorta. 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 Bifascicular block Chronic, dating back to at least 08/2018 per chart review Bilateral inguinal hernia BPH (benign prostatic hyperplasia) WITH URINARY LEAKAGE CAD (coronary artery disease) Nonobstructive per cardio records (pt denies cardiac cath per 01/18/22 cardio note_ Cardiomyopathy EF 60-65% per 06/2021 ECHO Carotid artery disease S/p left carotid endarterectomy (2013) Per neck CTA 10/23/20= No significant carotid artery disease CKD (chronic kidney disease) CLL (chronic lymphocytic leukemia) Hearing deficit History of seizure [place] r/t hypoglycemic episodes (last ) History of stroke Initial stroke 2007- felt secondary to carotid disease (s/p left CEA) Possible second CVA shortly after first CVA Per records- CVA 10/23/20 On Plavix No residual effects Hyperlipidemia Hypertension Left thigh pain Osteoporosis Right inguinal hernia Surgical History H/O right inguinal hernia repair (08/03/20) Open right inguinal hernia repair. Dr. Wright 08/03/2020 H/O thoracic aortic aneurysm repair Hip fracture requiring operative repair LEFT HIP History of carotid endarterectomy LEFT History of cataract surgery RT/LEFT History of hernia surgery LEFT INGUINAL 1980 History of left hip replacement History of right hip replacement History of tonsillectomy 1944 Hx of nasal polypectomy Nausea and vomiting after administration of anesthetic agent S/P left inguinal hernia repair (03/21/22) Recurrent left inguinal hernia repair. Dr. Wright Status post incision and drainage (06/26/20) incision and drainage in the office of the left posterior thigh abscess 06/26/20 Dr. Wright in office Family History Brother Colorectal cancer Stroke Family history of diabetes mellitus Father Heart disease Hypertension Stroke Other No family history of adverse response to anesthesia Denies family history of Ovarian cancer Prostate cancer Myocardial infarction Breast cancer Social History Smoking Status: Former smoker Tobacco Type: Cigarettes packs per day: 0.75; Cigarettes Per Day: 12 YEARS AGO; Second Hand Exposure: No; Do You Dip or Chew Tobacco: No; Hx Alcohol Use: Yes Alcohol type: wine Alcohol Intake Frequency: 4 or More x per/Week Alcohol Intake Frequency Comment: 14 Hx Substance Use: No Preferred Language: Burkinan Communication Ability: Effective Communication Ability Comment: Pt. 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 Oriented to person, thinks he is in his SNF. Fluent with severe dysarthria. Comprehension impaired by hearing. Affect appropriate. Cranial Nerves: III/IV/: Versions intact without nystagmus VII: Facial expression reduced on the R Motor: Strength was symmetric and antigravity in the upper extremities, bilateral lower extremity weakness. Results & Data Vital Signs (Past 12 Hours) Vital Signs Temp Pulse Pulse Resp BP BP Pulse Ox 05/11/23 09:13 05/11/23 07:46 36.7 C 73 20 191/86 H 95 05/11/23 03:21 36.7 C 77 22 185/111 H 96 05/11/23 00:06 65 05/11/23 01:45 05/11/23 00:11 36.8 C 72 20 142/68 H 93 05/10/23 23:00 65 O2 Del Method 05/11/23 09:13 Room Air 05/11/23 07:46 Room Air 05/11/23 03:21 Room Air 05/11/23 00:06 05/11/23 01:45 Room Air 05/11/23 00:11 Room Air 05/10/23 23:00 Laboratory Results Abnormal lab results 05/11/23 05/11/23 05/11/23 Range/Units 01:51 01:51 08:38 WBC 55.41 H* 72.12 H* (4.8-10.8) K/ul RBC 4.40 L (4.70-6.10) M/uL Hgb 13.6 L (14.0-18.0) g/dl Hct 41.2 L (42.0-52.0) % RDW Std Deviation 54.0 H 52.4 H (36.4-46.3) fL RDW Coeff of Jewel 15.8 H 15.9 H (11.5-14.5) % Plt Count 92 L 113 L (130-400) K/uL Neut # (Auto) 8.26 H 9.47 H (1.40-6.50) K/uL Lymph # (Auto) 46.02 H 61.08 H (1.2-3.4) K/uL [place] # (Auto) 0.88 H 1.17 H (0.11-0.59) K/uL Immature Gran # (Auto) 0.25 H (0.01-0.20) K/uL PT 12.5 H (9.0-12.0) Seconds INR 1.2 H (0.9-1.1) APTT (21.0-31.0) Seconds Chloride (98-107) mmol/L BUN (6-23) mg/dl BUN/Creatinine Ratio (10-20) 05/11/23 05/11/23 Range/Units 08:38 08:38 WBC (4.8-10.8) K/ul RBC (4.70-6.10) M/uL Hgb (14.0-18.0) g/dl Hct (42.0-52.0) % RDW Std Deviation (36.4-46.3) fL RDW Coeff of Jewel (11.5-14.5) % Plt Count (130-400) K/uL Neut # (Auto) (1.40-6.50) K/uL Lymph # (Auto) (1.2-3.4) K/uL [place] # (Auto) (0.11-0.59) K/uL Immature Gran # (Auto) (0.01-0.20) K/uL PT (9.0-12.0) Seconds INR (0.9-1.1) APTT 32.2 H (21.0-31.0) Seconds Chloride 113 H (98-107) mmol/L BUN 24 H (6-23) mg/dl BUN/Creatinine Ratio 22.2 H (10-20) Diagnostic Findings MRI brain - multifocal embolic stroke in bilateral hemispheres CTA head and neck - scattered mild to moderate stenosis secondary to atherosclerotic disease.
[2023-05-11] MEDS: CLOPIDOGREL BISULFATE 75 MG TAB PO SCH (10:38)
[2023-05-11] MEDS: FINASTERIDE 5 MG TAB PO SCH (11:07)
[2023-05-11] MEDS: VALSARTAN 80 MG TAB PO SCH (11:07)
[2023-05-11] MEDS: TAMSULOSIN HCL 0.4 MG CAP PO SCH (11:07)
--- NOTE | 2023-05-11 11:40 | XCELERA ---
[id number]
--- NOTE | 2023-05-11 12:20 | Pharmacy Report ---
- Date of Service May 11, 2023 - Pharmacy CVA/TIA Medication Review Medications to Prevent Stroke handout has been added to the patients discharge packet. Antiplatelet(s) * Antiplatelet therapy deferred due to thrombocytopenia and risk of hemorrhage on therapeutic anticoagulation (per neurology) Cholesterol * High intensity statin: atorvastatin 40 mg daily DVT Prophylaxis * Therapeutic anticoag (below) Therapeutic Anticoagulation * On heparin drip for DVT (in the setting of cardioembolic stroke) - OK'd by neurology Type 2 Diabetes * Patient does not have T2DM
--- NOTE | 2023-05-11 14:39 | Hospitalist Progress Note ---
Date of Service May 11, 2023 Assessment & Plan (1) CVA (cerebral vascular accident): Plan: Bilateral embolic CVA seen on brain MRI scan. No shunt on cardiac echo bubble study. CTA studies negative for critical stenosis. Neurology consultation appreciated. Plavix has been discontinued per their recommendation. He currently is on a heparin drip and will be switched to Eliquis at discharge (2) Acute confusion: Plan: Acute metabolic encephalopathy present on admission. This is undoubtedly due to the ischemic CVAs. Behavioral health assessment appreciated. Blood and urine cultures are negative. Rocephin has been discontinued. (3) History of stroke: Plan: In the past. Recurrent now. (4) GERD (gastroesophageal reflux disease): Plan: Stable. Continue current medical management (5) BPH loc w/o ur obs/LUTS: Plan: Stable. Continue current medical management (6) CAD (coronary artery disease): Plan: Stable. Continue current medical manage (7) Cardiomyopathy: Plan: Stable. Continue current medical management (8) CLL (chronic lymphocytic leukemia): Plan: Chronic leukocytosis. Serial labs (9) Elevated troponin: Plan: No evidence of acute coronary syndrome. No chest pain. No acute EKG changes. (10) COPD (chronic obstructive pulmonary disease): Plan: Stable. Continue current medical management Plan Rehab placement at discharge when arrangements are finalized. Hopefully gabriela amezquita, May 12 Admission and Anticipated Discharge Date Admission Date: May 07, 2023 Subjective Awake and alert. He was able to complete the MRI scan and there is evidence of bilateral embolic CVAs. Fortunately he does not have an intra-atrial shunt on echo. This probably is embolic from atherosclerotic plaque that has broken loose. He currently is on a heparin drip and will be switched to Eliquis before discharge. All cultures are negative and antibiotics have been discontinued. Mild hypokalemia has been corrected. I spoke with his call or contact centre operator, Shikha conway, by phone. Neurology recommended stopping the Plavix. He will be discharged to rehabilitation when arrangements are finalized. Review of Systems Review of Systems: The patient is unable to answer any questions regarding review of systems at this time Physical Exam Physical Exam: General-alert, disoriented. No fevers, no chills HEENT-head atraumatic and normocephalic, pupils equal and reactive to light, extraocular muscles intact Neck-no lymphadenopathy or thyromegaly, trachea midline Chest-clear to auscultation percussion. No rales wheezing or rhonchi Cardiac-regular rate and rhythm, normal S1 and S2 Abdomen-normal bowel sounds, nontender, no hepatosplenomegaly Extremities-moving all 4 extremities randomly. No peripheral edema Neuro-no focal deficits. Strength appears to be symmetrical. Psych-cannot assess due to disorientation Results & Data Results & Data Vital Signs (Past 12 Hours) Vital Signs Temp Pulse Resp BP BP Pulse Ox O2 Del Method 05/11/23 11:09 37.1 C 95 H 20 163/81 H 93 Room Air 05/11/23 09:13 Room Air 05/11/23 07:46 36.7 C 73 20 191/86 H 95 Room Air 05/11/23 03:21 36.7 C 77 22 185/111 H 96 Room Air Laboratory Results 05/11/23 08:38 05/11/23 08:38 PG Care Time/CCT Total # of Minutes Spent Total Time Spent with Patient: Total time spent is greater than 50% in coordination of care (as documented) at patient's floor/unit and/or counseling patient: Coding Level of Care Code 21487 SUB INP/OBS CARE 3/50MIN Diagnoses CVA (cerebral vascular accident) I63.9 Acute confusion R41.0 History of stroke Z86.73 GERD (gastroesophageal reflux disease) K21.9 Esophagitis presence: esophagitis presence not specified 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 CAD (coronary artery disease) I25.10 Cardiomyopathy I42.9 CLL (chronic lymphocytic leukemia) C91.90 Elevated troponin R77.8 COPD (chronic obstructive pulmonary disease) J44.9 (4) GERD (gastroesophageal reflux disease) Esophagitis presence: esophagitis presence not specified Qualified Code(s): K21.9 - Gastro-esophageal reflux disease without esophagitis
[2023-05-11 17:57] LABS: Partial Thromboplastin Ratio 1.1; Partial Thromboplastin Time 31.7 Seconds (21.0-31.0)
[2023-05-11] MEDS: ATORVASTATIN 40 MG TAB PO SCH (20:24)
[2023-05-12 01:47] LABS: Partial Thromboplastin Ratio 2.2
[2023-05-12] MEDS: HEPARIN SODIUM/DEXTROSE 25,000 UNITS/500 ML BAG IV SCH (06:02)
[2023-05-12] MEDS: APIXABAN 2.5 MG TAB PO SCH ×2 (11:08→21:50)
[2023-05-12] MEDS: FINASTERIDE 5 MG TAB PO SCH (11:09)
[2023-05-12] MEDS: VALSARTAN 80 MG TAB PO SCH (11:09)
[2023-05-12] MEDS: TAMSULOSIN HCL 0.4 MG CAP PO SCH (11:09)
[2023-05-12] MEDS ORDERED: OLANZapine 10 MG/2.1 ML SDV IM PRN (11:49)
[2023-05-12] MEDS: ACETAMINOPHEN 325 MG TAB PO PRN (12:06)
[2023-05-12 12:41] LABS: Hematocrit (blood only) 41.6 % (42.0-52.0); Mean Corpuscular Hemoglobin 30.6 pg (25.0-34.0); Mean Corpuscular Hgb Conc 33.7 g/dL (32.0-36.0); Mean Platelet Volume 10.8 fL (9.4-12.4); Platelet Count 111 K/uL (130-400); RDW Coefficient of Variation 15.9 % (11.5-14.5); RDW Standard Deviation 52.6 fL (36.4-46.3); Red Blood Count 4.57 M/uL (4.70-6.10); White Blood Count 58.27 K/ul (4.8-10.8)
[2023-05-12 12:48] LABS: BUN Creatinine Ratio 20.4 (10-20); Calcium 9.6 mg/dl (8.6-10.3); Creatinine Clr Calc Pharmacy 40.6 ml/min; Est GFR (African American) 68.3 ml/min; Est GFR (Non-African American) 58.9 ml/min; Potassium 3.3 mmol/L (3.5-5.1)
[2023-05-12 13:14] LABS: Basophils % (auto) 0.2 %; Eosinophils # (auto) 0.46 K/uL (0-0.50); Eosinophils % (auto) 0.8 %; Immature Granulocytes # (auto) 0.19 K/uL (0.01-0.20); Immature Granulocytes % (auto) 0.3 %; Lymphocytes % (auto) 85.3 %; Monocytes # (auto) 0.79 K/uL (0.11-0.59); Monocytes % (auto) 1.4 %; Neutrophils # (auto) 7.03 K/uL (1.40-6.50); Smudge Cells Present
--- NOTE | 2023-05-12 15:13 | Hospitalist Progress Note ---
Date of Service May 12, 2023 Assessment & Plan (1) CVA (cerebral vascular accident): Plan: Bilateral embolic CVA seen on brain MRI scan. No shunt on cardiac echo bubble study. CTA studies negative for critical stenosis. Neurology consultation appreciated. Plavix has been discontinued per their recommendation. Heparin drip has been converted to Eliquis today, May 12 (2) Acute confusion: Plan: Acute metabolic encephalopathy present on admission. This is undoubtedly due to the ischemic CVAs. Behavioral health assessment appreciated. He is occasionally agitated. One-on-one supervision has been discontinued today, May 12. Blood and urine cultures are negative. Rocephin has been discontinued. (3) History of stroke: Plan: In the past. Recurrent now. (4) GERD (gastroesophageal reflux disease): Plan: Stable. Continue current medical management (5) BPH loc w/o ur obs/LUTS: Plan: Stable. Continue current medical management (6) CAD (coronary artery disease): Plan: Stable. Continue current medical manage (7) Cardiomyopathy: Plan: Stable. Continue current medical management (8) CLL (chronic lymphocytic leukemia): Plan: Chronic leukocytosis. Serial labs (9) Elevated troponin: Plan: No evidence of acute coronary syndrome. No chest pain. No acute EKG changes. (10) COPD (chronic obstructive pulmonary disease): Plan: Stable. Continue current medical management Plan SNF placement for rehab at discharge when arrangements are finalized. Hopefully tomorrow, May 13 Admission and Anticipated Discharge Date Admission Date: May 07, 2023 Subjective Awake and alert. He remains confused. One-on-one observation has been discontinued. Heparin drip has been switched to oral Eliquis. Hopefully he will be able to go to SNF for rehab tomorrow, May 13 Review of Systems Review of Systems: The patient is unable to accurately answer any review of systems questions Physical Exam Physical Exam: General-alert, disoriented. No fevers, no chills HEENT-head atraumatic and normocephalic, pupils equal and reactive to light, extraocular muscles intact Neck-no lymphadenopathy or thyromegaly, trachea midline Chest-clear to auscultation percussion. No rales wheezing or rhonchi Cardiac-regular rate and rhythm, normal S1 and S2 Abdomen-normal bowel sounds, nontender, no hepatosplenomegaly Extremities-moving all 4 extremities randomly. No peripheral edema Neuro-no focal deficits. Strength appears to be symmetrical. Psych-cannot assess due to disorientation Results & Data Results & Data Vital Signs (Past 12 Hours) Vital Signs Temp Pulse Pulse Pulse Resp BP Pulse Ox 05/12/23 11:00 36.9 C 50 L 16 152/71 H 92 05/12/23 08:00 05/12/23 08:00 64 05/12/23 07:43 36.6 C 71 18 180/90 H 95 05/12/23 04:54 36.9 C 58 L 18 145/78 H 95 O2 Del Method 05/12/23 11:00 Room Air 05/12/23 08:00 Room Air 05/12/23 08:00 05/12/23 07:43 Room Air 05/12/23 04:54 Room Air Laboratory Results 05/12/23 12:08 05/12/23 12:08 PG Care Time/CCT Total # of Minutes Spent Total Time Spent with Patient: Total time spent is greater than 50% in coordination of care (as documented) at patient's floor/unit and/or counseling patient: Coding Level of Care Code 28183 SUB INP/OBS CARE 3/50MIN Diagnoses CVA (cerebral vascular accident) I63.9 Acute confusion R41.0 History of stroke Z86.73 GERD (gastroesophageal reflux disease) K21.9 Esophagitis presence: esophagitis presence not specified 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 CAD (coronary artery disease) I25.10 Cardiomyopathy I42.9 CLL (chronic lymphocytic leukemia) C91.90 Elevated troponin R77.8 COPD (chronic obstructive pulmonary disease) J44.9 (4) GERD (gastroesophageal reflux disease) Esophagitis presence: esophagitis presence not specified Qualified Code(s): K21.9 - Gastro-esophageal reflux disease without esophagitis
[2023-05-12] MEDS: ATORVASTATIN 40 MG TAB PO SCH (21:50)
[2023-05-13 06:18] LABS: Hematocrit (blood only) 42.2 % (42.0-52.0); Hemoglobin 13.9 g/dl (14.0-18.0); Mean Corpuscular Hemoglobin 30.8 pg (25.0-34.0); Mean Corpuscular Hgb Conc 32.9 g/dL (32.0-36.0); Mean Corpuscular Volume 93.6 fL (80.0-100.0); Mean Platelet Volume 10.4 fL (9.4-12.4); Platelet Count 102 K/uL (130-400); RDW Coefficient of Variation 15.8 % (11.5-14.5); RDW Standard Deviation 53.2 fL (36.4-46.3); Red Blood Count 4.51 M/uL (4.70-6.10)
[2023-05-13 06:23] LABS: BUN Creatinine Ratio 19.4 (10-20); Calcium 9.5 mg/dl (8.6-10.3); Creatinine Clr Calc Pharmacy 34.7 ml/min; Est GFR (African American) 58.2 ml/min; Est GFR (Non-African American) 50.2 ml/min; Potassium 3.6 mmol/L (3.5-5.1)
[2023-05-13 07:09] LABS: Basophils # (auto) 0.11 K/uL (0-0.2); Basophils % (auto) 0.2 %; Eosinophils # (auto) 0.62 K/uL (0-0.50); Eosinophils % (auto) 1.1 %; Immature Granulocytes # (auto) 0.21 K/uL (0.01-0.20); Immature Granulocytes % (auto) 0.4 %; Lymphocytes # (auto) 45.22 K/uL (1.2-3.4); Lymphocytes % (auto) 82.2 %; Monocytes # (auto) 0.97 K/uL (0.11-0.59); Monocytes % (auto) 1.8 %; Neutrophils # (auto) 7.87 K/uL (1.40-6.50); Neutrophils % (auto) 14.3 %; Smudge Cells Present
[2023-05-13] MEDS: APIXABAN 2.5 MG TAB PO SCH ×2 (09:18→20:46)
[2023-05-13] MEDS: VALSARTAN 80 MG TAB PO SCH (09:18)
[2023-05-13] MEDS: TAMSULOSIN HCL 0.4 MG CAP PO SCH (09:18)
[2023-05-13] MEDS: FINASTERIDE 5 MG TAB PO SCH (09:18)
--- NOTE | 2023-05-13 14:15 | Hospitalist Progress Note ---
Date of Service May 13, 2023 Assessment & Plan (1) CVA (cerebral vascular accident): Plan: Bilateral embolic CVA seen on brain MRI scan. No shunt on cardiac echo bubble study. CTA studies negative for critical stenosis. Neurology consultation appreciated. Plavix has been discontinued per their recommendation. Heparin drip has been converted to Eliquis on May 12 (2) Acute confusion: Plan: Acute metabolic encephalopathy present on admission. This is undoubtedly due to the ischemic CVAs. Behavioral health assessment appreciated. He is occasionally agitated. One-on-one supervision was discontinued on May 12. Blood and urine cultures are negative. Rocephin has been discontinued. (3) COVID-19: Plan: Nasal positive swab only. No systemic symptoms. (4) History of stroke: Plan: In the past. Recurrent now. (5) GERD (gastroesophageal reflux disease): Plan: Stable. Continue current medical management (6) BPH loc w/o ur obs/LUTS: Plan: Stable. Continue current medical management (7) CAD (coronary artery disease): Plan: Stable. Continue current medical manage (8) Cardiomyopathy: Plan: Stable. Continue current medical management (9) CLL (chronic lymphocytic leukemia): Plan: Chronic leukocytosis. Serial labs (10) Elevated troponin: Plan: No evidence of acute coronary syndrome. No chest pain. No acute EKG changes. (11) COPD (chronic obstructive pulmonary disease): Plan: Stable. Continue current medical management Plan Placement at [facility] when arrangements are finalized. COVID nasal swab positivity is interrupting appropriate medical care at this point. His tax auditor is aware of this Admission and Anticipated Discharge Date Admission Date: May 07, 2023 Subjective Awake but confused. He adamantly states that he has not suffered a CVA although MRI shows that he suffered embolic multiple ischemic CVAs. Continue Eliquis. Unfortunately his nasal COVID swab is positive which is meaningless at this point. He is asymptomatic and had COVID months ago. The swab could possibly stay positive forever. Nevertheless, [facility] is refusing to accept him. Review of Systems Review of Systems: The patient is unable to accurately answer any review of systems questions Physical Exam Physical Exam: General-alert, disoriented. No fevers, no chills HEENT-head atraumatic and normocephalic, pupils equal and reactive to light, extraocular muscles intact Neck-no lymphadenopathy or thyromegaly, trachea midline Chest-clear to auscultation percussion. No rales wheezing or rhonchi Cardiac-regular rate and rhythm, normal S1 and S2 Abdomen-normal bowel sounds, nontender, no hepatosplenomegaly Extremities-moving all 4 extremities randomly. No peripheral edema Neuro-no apparent focal deficits. Strength appears to be symmetrical. Psych-cannot assess due to disorientation Results & Data Results & Data Vital Signs (Past 12 Hours) Vital Signs Temp Pulse Resp BP BP Pulse Ox O2 Del Method 05/13/23 11:44 36.8 C 66 18 127/73 94 Room Air 05/13/23 11:12 Room Air 05/13/23 07:41 36.4 C L 63 18 172/89 H 92 Room Air 05/13/23 02:59 36.5 C 58 L 18 149/68 H 93 Room Air Laboratory Results 05/13/23 05:35 05/13/23 05:35 PG Care Time/CCT Total # of Minutes Spent Total Time Spent with Patient: Total time spent is greater than 50% in coordination of care (as documented) at patient's floor/unit and/or counseling patient: Coding Level of Care Code 05755 SUB INP/OBS CARE 2/35MIN Diagnoses CVA (cerebral vascular accident) I63.9 Acute confusion R41.0 COVID-19 U07.1 History of stroke Z86.73 GERD (gastroesophageal reflux disease) K21.9 Esophagitis presence: esophagitis presence not specified 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 CAD (coronary artery disease) I25.10 Cardiomyopathy I42.9 CLL (chronic lymphocytic leukemia) C91.90 Elevated troponin R77.8 COPD (chronic obstructive pulmonary disease) J44.9 (5) GERD (gastroesophageal reflux disease) Esophagitis presence: esophagitis presence not specified Qualified Code(s): K21.9 - Gastro-esophageal reflux disease without esophagitis
[2023-05-13] MEDS: ATORVASTATIN 40 MG TAB PO SCH (20:46)
[2023-05-14] MEDS: VALSARTAN 80 MG TAB PO SCH (09:59)
[2023-05-14] MEDS: TAMSULOSIN HCL 0.4 MG CAP PO SCH (09:59)
[2023-05-14] MEDS: FINASTERIDE 5 MG TAB PO SCH (09:59)
[2023-05-14] MEDS: APIXABAN 2.5 MG TAB PO SCH ×2 (09:59→21:52)
--- NOTE | 2023-05-14 14:51 | Hospitalist Progress Note ---
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 No shunt on cardiac echo bubble study. CTA studies negative for critical stenosis. Neurology consultation appreciated. Plavix has been discontinued per their recommendation. Heparin drip was converted to Eliquis on May 12 (2) Acute confusion: Plan: Acute metabolic encephalopathy present on admission. This is undoubtedly due to the ischemic CVAs. Behavioral health assessment appreciated. He is occasionally agitated. One-on-one supervision was discontinued on May 12. Blood and urine cultures are negative. Rocephin has been discontinued. Mental status seems better today, May 14 (3) COVID-19: Plan: Nasal positive swab only. No systemic symptoms. (4) History of stroke: Plan: In the past. Recurrent now. (5) GERD (gastroesophageal reflux disease): Plan: Stable. Continue current medical management (6) BPH loc w/o ur obs/LUTS: Plan: Stable. Continue current medical management (7) CAD (coronary artery disease): Plan: Stable. Continue current medical manage (8) Cardiomyopathy: Plan: Stable. Continue current medical management (9) CLL (chronic lymphocytic leukemia): Plan: Chronic leukocytosis. Serial labs (10) Elevated troponin: Plan: No evidence of acute coronary syndrome. No chest pain. No acute EKG changes. (11) COPD (chronic obstructive pulmonary disease): Plan: Stable. Continue current medical management Plan Placement at [facility] when arrangements are finalized. COVID nasal swab positivity is interrupting appropriate medical care at this point. His sound effects manager is aware of this Admission and Anticipated Discharge Date Admission Date: May 07, 2023 Subjective He seems more alert and oriented today. No acute distress. He is tolerating his Eliquis. No new problems at this time. Hopefully arrangements can be finalized tomorrow for discharge to [facility]. However COVID-positive nasal swab has created a roadblock. He does not have active COVID illness at this time however. Review of Systems Review of Systems: Constitutional-no fever or chills ENT-no blurred vision, no double vision, no epistaxis, no sore throat Respiratory-no cough, no wheezing, no shortness of breath Cardiac-no palpitations, no chest pain, no syncope GI-no nausea, vomiting, diarrhea, melena, hematochezia -no urinary retention, no urinary incontinence, no dysuria, no hematuria Musculoskeletal-no joint pain, no muscle tenderness Skin-no bruising, no rashes, no pruritus Neuro-no isolated weakness, no paresthesia, no weakness Psych-no depression, no anxiety Physical Exam Physical Exam: General-alert, disoriented. No fevers, no chills HEENT-head atraumatic and normocephalic, pupils equal and reactive to light, extraocular muscles intact Neck-no lymphadenopathy or thyromegaly, trachea midline Chest-clear to auscultation percussion. No rales wheezing or rhonchi Cardiac-regular rate and rhythm, normal S1 and S2 Abdomen-normal bowel sounds, nontender, no hepatosplenomegaly Extremities-moving all 4 extremities randomly. No peripheral edema Neuro-no apparent focal deficits. Strength appears to be symmetrical. Psych-cannot assess due to disorientation Results & Data Results & Data Vital Signs (Past 12 Hours) Vital Signs Temp Pulse Resp BP BP Pulse Ox O2 Del Method 05/14/23 11:45 36.8 C 68 18 125/72 95 Room Air 05/14/23 08:52 36.8 C 61 18 157/81 H 94 Room Air 05/14/23 03:49 36.9 C 67 19 169/78 H 93 Room Air Laboratory Results 05/13/23 05:35 05/13/23 05:35 PG Care Time/CCT Total # of Minutes Spent Total Time Spent with Patient: Total time spent is greater than 50% in coordination of care (as documented) at patient's floor/unit and/or counseling patient: Coding Level of Care Code 15637 SUB INP/OBS CARE 2/MIN Diagnoses CVA (cerebral vascular accident) I63.9 Acute confusion R41.0 COVID-19 U07.1 History of stroke Z86.73 GERD (gastroesophageal reflux disease) K21.9 Esophagitis presence: esophagitis presence not specified 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 CAD (coronary artery disease) I25.10 Cardiomyopathy I42.9 CLL (chronic lymphocytic leukemia) C91.90 Elevated troponin R77.8 COPD (chronic obstructive pulmonary disease) J44.9 (5) GERD (gastroesophageal reflux disease) Esophagitis presence: esophagitis presence not specified Qualified Code(s): K21.9 - Gastro-esophageal reflux disease without esophagitis
[2023-05-14] MEDS: ATORVASTATIN 40 MG TAB PO SCH (21:52)
[2023-05-15] MEDS: APIXABAN 2.5 MG TAB PO SCH (08:41)
[2023-05-15] MEDS: VALSARTAN 80 MG TAB PO SCH (08:42)
[2023-05-15] MEDS: TAMSULOSIN HCL 0.4 MG CAP PO SCH (08:43)
[2023-05-15] MEDS: FINASTERIDE 5 MG TAB PO SCH (08:43)
[2023-05-15] MEDS ORDERED: APIXABAN 2.5 MG TAB PO STA (10:31)
[2023-05-15] MEDS: carvediloL 3.125 MG TAB PO SCH ×2 (10:38→17:38)
[2023-05-15 11:12] LABS: Creatinine Clr Calc Pharmacy 32.4 ml/min; Est GFR (African American) 53.6 ml/min; Est GFR (Non-African American) 46.3 ml/min; Magnesium 2.2 mg/dl (1.7-2.4); Potassium 3.4 mmol/L (3.5-5.1)
[2023-05-15 11:25] LABS: Hematocrit (blood only) 47.6 % (42.0-52.0); Hemoglobin 15.1 g/dl (14.0-18.0); Mean Corpuscular Hemoglobin 30.6 pg (25.0-34.0); Mean Corpuscular Hgb Conc 31.7 g/dL (32.0-36.0); Mean Corpuscular Volume 96.6 fL (80.0-100.0); Mean Platelet Volume 11.1 fL (9.4-12.4); Platelet Count 115 K/uL (130-400); RDW Coefficient of Variation 16.2 % (11.5-14.5); RDW Standard Deviation 56.9 fL (36.4-46.3); Red Blood Count 4.93 M/uL (4.70-6.10); White Blood Count 54.18 K/ul (4.8-10.8)
[2023-05-15] MEDS ORDERED: POTASSIUM CHLORIDE CRTAB 20 MEQ TABCR PO STA (11:31)
[2023-05-15 12:46] LABS: Basophils # (auto) 0.09 K/uL (0-0.2); Basophils % (auto) 0.2 %; Eosinophils # (auto) 0.58 K/uL (0-0.50); Eosinophils % (auto) 1.1 %; Immature Granulocytes # (auto) 0.19 K/uL (0.01-0.20); Immature Granulocytes % (auto) 0.4 %; Lymphocytes # (auto) 45.89 K/uL (1.2-3.4); Lymphocytes % (auto) 84.7 %; Monocytes # (auto) 0.72 K/uL (0.11-0.59); Monocytes % (auto) 1.3 %; Neutrophils # (auto) 6.71 K/uL (1.40-6.50); Neutrophils % (auto) 12.3 %; Smudge Cells Present
--- NOTE | 2023-05-15 20:21 | Hospitalist Progress Note ---
Date of Service May 15, 2023 Assessment & Plan (1) CVA (cerebral vascular accident): Plan: b/l strokes on MRI brain. neuro consult appreciated. etiology - embolic. source? neurology advised use of anticoagulation; stop plavix. in light of b/l LE DVT he should be on Eliquis 10mg BID x 7 days, then 5mg BID thereafter x 3 months, then 2.5mg BID thereafter CTA head/neck negative echo without source of thrombus no a.fib seen during the admission (2) Acute confusion: Plan: Acute metabolic encephalopathy - likely 2nd to b/l strokes. per report his MS has improved, but today he was confused once again. (3) COVID-19: Plan: dx with COVID-19 in late March 2023. COVID PCR test was positive on 05/13/23. this is likely viral shedding (noninfectious) following his illness earlier in the summer. [id number] he is in airborne isolation. b/l rales on exam - due to prior COVID-19 infection? ILD? other? consider repeat imaging. (4) GERD (gastroesophageal reflux disease): Plan: add pepcid 20mg BID (5) BPH loc w/o ur obs/LUTS: Plan: cont finasteride cont flomax (6) CAD (coronary artery disease): Plan: plavix d/c due to institution of Eliquis cont statin EF 35-40% on echo - ideally he is on low-dose beta juan to that end coreg 3.125mg BID was added fortunately he is compensated (7) Cardiomyopathy: Plan: EF 35-40% on echo this admission global hypokinesis post-viral from COVID? ischemic from h/o CAD? other? is compensated on exam adding low-dose coreg cont low-dose ARB (8) CLL (chronic lymphocytic leukemia): Plan: follows [facility] cell lines stable including mild thrombocytopenia (9) Elevated troponin: Plan: peak HS trop was 28 2nd to myocardial demand ischemia rather than ACS (10) COPD (chronic obstructive pulmonary disease): Plan: no exacerbation at this time should be on a controller agent consider Breo Plan dispo - [facility] - tomorrow? other? Admission and Anticipated Discharge Date Admission Date: May 07, 2023 Subjective patient was sitting in the chair by the window he seemed confused he did not believe that he had had strokes he feels we are "not communicating with him" eating is fair he asks when he can leave the hospital he denies feeling short of breath Review of Systems Review of Systems: gen - fatigue cv - no chest pain pulm - some cough HENT - clearing of throat GI - no abd pain/nausea/emesis Physical Exam Physical Exam: gen - thin, NAD, sitting in chair by window; flat affect HENT - hearing impaired (severe); MMM neck - no JVD heart - irregular, s1 s2, no murmur lungs - b/l basilar rales, mild quiet tachypnea noted, no wheezing abd - soft NT ND BS+ skin - bruise right mid-quiñonez ext - trace edema b/l, pulses 2+ b/l psych - a/o x 1 only Results & Data Results & Data Vital Signs (Past 12 Hours) Vital Signs Temp Pulse Resp BP BP Pulse Ox O2 Del Method 05/15/23 20:17 36.3 C L 53 L 20 164/77 H 91 Room Air 05/15/23 17:30 61 05/15/23 15:53 36.5 C 59 L 16 144/79 H 97 Room Air 05/15/23 12:46 Room Air 05/15/23 09:19 36.6 C 63 16 183/81 H 96 Room Air Laboratory Results Laboratory Results - last 24 hr 05/15/23 05/15/23 05/15/23 07:30 09:30 09:30 WBC 54.18 H* RBC 4.93 Hgb 15.1 Hct 47.6 MCV 96.6 MCH 30.6 MCHC 31.7 L RDW Std Deviation 56.9 H RDW Coeff of Jewel 16.2 H Plt Count 115 L MPV 11.1 Immature Gran % (Auto) 0.4 Neut % (Auto) 12.3 Lymph % (Auto) 84.7 [place] % (Auto) 1.3 Eos % (Auto) 1.1 Baso % (Auto) 0.2 Neut # (Auto) 6.71 H Lymph # (Auto) 45.89 H [place] # (Auto) 0.72 H Eos # (Auto) 0.58 H Baso # (Auto) 0.09 Immature Gran # (Auto) 0.19 Smudge Cells Present Sodium 144 Potassium 3.4 L Chloride 111 H Carbon Dioxide 28 Anion Gap 5 BUN 29 H Creatinine 1.38 Est Cr Clr Drug Dosing 32.4 Est GFR ( Amer) 53.6 Est GFR (Non-Af Amer) 46.3 BUN/Creatinine Ratio 21.0 H Glucose 149 H POC Glucose 91 Calcium 10.0 Magnesium 2.2 TSH 05/15/23 09:30 WBC RBC Hgb Hct MCV MCH MCHC RDW Std Deviation RDW Coeff of Jewel Plt Count MPV Immature Gran % (Auto) Neut % (Auto) Lymph % (Auto) [place] % (Auto) Eos % (Auto) Baso % (Auto) Neut # (Auto) Lymph # (Auto) [place] # (Auto) Eos # (Auto) Baso # (Auto) Immature Gran # (Auto) Smudge Cells Sodium Potassium Chloride Carbon Dioxide Anion Gap BUN Creatinine Est Cr Clr Drug Dosing Est GFR ( Amer) Est GFR (Non-Af Amer) BUN/Creatinine Ratio Glucose POC Glucose Calcium Magnesium TSH 1.351 PG Care Time/CCT Total # of Minutes Spent Total Time Spent with Patient: Total time spent is greater than 50% in coordination of care (as documented) at patient's floor/unit and/or counseling patient: Coding Level of Care Code 35445 SUB INP/OBS CARE 2/35MIN Diagnoses CVA (cerebral vascular accident) I63.9 Acute confusion R41.0 COVID-19 U07.1 GERD (gastroesophageal reflux disease) K21.9 Esophagitis presence: esophagitis presence not specified 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 CAD (coronary artery disease) I25.10 Cardiomyopathy I42.9 CLL (chronic lymphocytic leukemia) C91.90 Elevated troponin R77.8 COPD (chronic obstructive pulmonary disease) J44.9 (4) GERD (gastroesophageal reflux disease) Esophagitis presence: esophagitis presence not specified Qualified Code(s): K21.9 - Gastro-esophageal reflux disease without esophagitis
[2023-05-15] MEDS: ATORVASTATIN 40 MG TAB PO SCH ×2 (22:40→22:48)
[2023-05-15] MEDS: APIXABAN 5 MG TABLET PO SCH ×2 (22:40→22:48)
[2023-05-16] MEDS: TAMSULOSIN HCL 0.4 MG CAP PO SCH (08:44)
[2023-05-16] MEDS: VALSARTAN 80 MG TAB PO SCH (08:45)
[2023-05-16] MEDS: FINASTERIDE 5 MG TAB PO SCH (08:45)
[2023-05-16] MEDS: APIXABAN 5 MG TABLET PO SCH ×2 (08:46→21:30)
[2023-05-16] MEDS: carvediloL 3.125 MG TAB PO SCH ×2 (08:46→18:06)
[2023-05-16 09:08] LABS: Hematocrit (blood only) 41.4 % (42.0-52.0); Hemoglobin 13.6 g/dl (14.0-18.0); Mean Corpuscular Hemoglobin 30.7 pg (25.0-34.0); Mean Corpuscular Hgb Conc 32.9 g/dL (32.0-36.0); Mean Corpuscular Volume 93.5 fL (80.0-100.0); Mean Platelet Volume 10.4 fL (9.4-12.4); Platelet Count 115 K/uL (130-400); RDW Coefficient of Variation 15.9 % (11.5-14.5); RDW Standard Deviation 54.3 fL (36.4-46.3); Red Blood Count 4.43 M/uL (4.70-6.10); White Blood Count 51.85 K/ul (4.8-10.8)
[2023-05-16 09:12] LABS: BUN Creatinine Ratio 20.2 (10-20); Calcium 9.5 mg/dl (8.6-10.3); Creatinine Clr Calc Pharmacy 34.6 ml/min; Est GFR (African American) 58.2 ml/min; Est GFR (Non-African American) 50.2 ml/min; Potassium 4.1 mmol/L (3.5-5.1)
[2023-05-16] MEDS ORDERED: VALSARTAN 80 MG TAB PO ONE (10:00)
[2023-05-16 10:10] LABS: Basophils % (auto) 0.2 %; Eosinophils # (auto) 0.55 K/uL (0-0.50); Eosinophils % (auto) 1.1 %; Immature Granulocytes # (auto) 0.18 K/uL (0.01-0.20); Immature Granulocytes % (auto) 0.3 %; Lymphocytes # (auto) 43.77 K/uL (1.2-3.4); Lymphocytes % (auto) 84.4 %; Monocytes # (auto) 0.76 K/uL (0.11-0.59); Monocytes % (auto) 1.5 %; Neutrophils # (auto) 6.49 K/uL (1.40-6.50); Neutrophils % (auto) 12.5 %; Smudge Cells Present
--- NOTE | 2023-05-16 15:37 | XRay Report ---
XR chest 1V portable HISTORY: cough, congestion, b/l rales COMPARISON: Chest 05/07/2023. FINDINGS: No pneumothorax. No pleural effusions. The cardiac silhouette remains enlarged. There is a tortuous thoracic aorta with a descending thoracic aortic stent, unchanged. No evidence for pulmonary edema. Bibasilar interstitial thickening persists and is likely chronic. The progressive patchy biba silar airspace opacities. The upper lung zones are clear. IMPRESSION: Progressive patchy bibasilar airspace opacities. This likely represents a pneumonia. ACT 112: Negative or not required by law. Electronically signed by: Rajesh Randolph M.D. 05/16/2023 3:35 PM
[2023-05-16 16:01] LABS: Appearance Urine Clear (Clear); Bacteria Urine Automated Negative (Negative); Bilirubin Urine Negative (Negative); Blood Urine Trace (Negative); Color Urine Yellow; Glucose Urine UA 1+ (Negative); Ketones Urine Negative (Negative); Leukocyte Esterase Urine Negative (Negative); Nitrite Urine Negative (Negative); Protein Urine 2+ (Negative); RBC Urine Automated 0-4 /hpf (0-4); Specific Gravity Urine 1.021 (1.000-1.030); Urobilinogen Urine Negative (Negative); pH Urine 5.5 (4.5-7.5)
[2023-05-16] MEDS ORDERED: IOVERSOL 350 MG 125mL Prefilled Syringe IV ONE (17:46)
[2023-05-16] MEDS: CEFEPIME 2,000 MG in SYRINGE 0 ML IV SCH (18:05)
--- NOTE | 2023-05-16 19:05 | CT Scan Report ---
CHEST CTA for PULMONARY ARTERIES CT DOSE: 603.00 mGy.cm HISTORY: Shortness of breath. tachypnea, recent COVID; eval PE, pneumonia, etc TECHNIQUE: Multiaxial CT images of the chest were performed following the intravenous administration of contrast to evaluate the pulmonary arteries. 3D/Maximal intensity projection images were also obta ined. Sagittal and coronal reformations were also reviewed. A dose lowering technique was utilized a dhering to the principles of ALARA. COMPARISON STUDY: Chest CT 12/19/2022. Abdomen and pelvis CT 05/07/2023. 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 No evidence for an aortic dissection. 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 The aneurysm sac remains unchanged measuring up to 6.3 cm in diameter. No filling defects within the pulmonary ar teries to suggest a pulmonary embolus. The heart remains mildly enlarged. No pleural or pericardial e ffusions. Limited views of the upper abdomen demonstrate normal liver and spleen. Upper abdominal lym phadenopathy is better appreciated on the prior abdomen and pelvis CT. The visualized cervical, subpe ctoral, axillary, mediastinal, and hilar lymphadenopathy has progressed compared to the prior chest C T. This is contiguous with the patient's known lymphoma. Normal esophagus. Normal thyroid gland. Oxana re coronary artery calcifications are noted. Old compression deformities again noted within the lower thoracic spine. No acute fractures. No pneumothorax. The central airways are patent. Emphysema and s cattered blebs are again noted. Bibasilar densities have slightly progressed. This could represent at electasis and/or pneumonia. No evidence for pulmonary edema. IMPRESSION: 1. No evidence for a pulmonary embolus. 2. Patchy bibasilar lower lobe densities have slightly progressed. This could represent atelectasis a nd/or pneumonia. 3. Emphysema. 4. Stable aneurysmal dilatation of the thoracic aorta as described above status post stent graft repa ir of the descending thoracic aorta. 5. Progressive lymphadenopathy within the neck, chest, and visualized abdomen compared to the prior c hest CT. This is consistent with the patient's known history of lymphoma. ACT 112: Negative or not required by law. Electronically signed by: Rajesh Randolph M.D. 05/16/2023 7:03 PM
[2023-05-16] MEDS ORDERED: SODIUM CHLORIDE 0.9% 500 ML IV SCH (19:45)
--- NOTE | 2023-05-16 20:10 | Hospitalist Progress Note ---
Date of Service May 16, 2023 Assessment & Plan (1) CVA (cerebral vascular accident): Plan: b/l strokes on MRI brain. neuro consult appreciated. etiology - embolic. source? neurology advised use of anticoagulation - thus, Eliquis started in light of b/l LE DVT he should be on Eliquis 10mg BID x 7 days, then 5mg BID thereafter x 3 months, then 2.5mg BID thereafter CTA head/neck negative echo without source of thrombus no a.fib seen during the admission (2) Acute confusion: Plan: Acute metabolic encephalopathy - likely 2nd to b/l strokes. Still some confusion. Has not required antipsychotic meds. Avoid sedatives. (3) COVID-19: Plan: dx with COVID-19 in late March 2023. COVID PCR test was positive on 05/13/23. this is likely viral shedding (noninfectious) following his illness earlier in the summer. sunt-car-svee he is in airborne isolation. b/l rales on exam - due to prior COVID-19 infection? ILD? other? cxr today with b/l basilar infiltrates c/w his examination. will obtain CT chest for more information - will give contrast to r/o PE in light of recent DVTs. (4) GERD (gastroesophageal reflux disease): Plan: cont pepcid 20mg BID (5) BPH loc w/o ur obs/LUTS: Plan: cont finasteride cont flomax checked ua today due to LUTs -- not suspicious for UTI, but urine cx sent PVR today was 240cc if the PVRs worsen may need catheter (6) CAD (coronary artery disease): Plan: plavix d/c due to institution of Eliquis cont statin EF 35-40% on echo - ideally he should be on low-dose beta juan to that end coreg 3.125mg BID was added but HRs have been too low to start it remains compensated (7) Cardiomyopathy: Plan: EF 35-40% on echo this admission global hypokinesis post-viral from COVID? ischemic from h/o CAD? other? is compensated on exam ideally he is on low-dose coreg or other beta juan if HR will tolerate cont low-dose ARB (8) CLL (chronic lymphocytic leukemia): Plan: follows with [facility] cell lines stable including mild thrombocytopenia check IgG, IgM, and IgA in am (9) Elevated troponin: Plan: peak HS trop was 28 2nd to myocardial demand ischemia rather than ACS (10) COPD (chronic obstructive pulmonary disease): Plan: no exacerbation at this time should be on a controller agent will start Breo Plan await CTA chest Shikha Toussaint - a manager regional sales and close friend to Mr Kline - was updated today in person Admission and Anticipated Discharge Date Admission Date: May 07, 2023 Subjective patient was sitting in chair by the window during the visit he was modestly confused like yesterday's visit fair appetite +cough mild dyspnea he stated "I can't pee that well" bladder scan was done - voided 100cc, 240cc PVR I explained that BPH often causes this in men and he stated "I'm not so sure that's it" asks when he can leave Review of Systems Review of Systems: gen - no fevers/chills; fatigue/tired cv - no chest pain pulm - cough/dyspnea GI - no abd pain Physical Exam Physical Exam: gen - thin, NAD, flat affect, a little confused HENT - MMM, no thrush neck - no JVD heart - irregular, s1 s2, no murmur lungs - b/l basilar rales, tachypnea again noted, no wheezing abd - soft NT ND BS+ skin - bruise right mid-quiñonez covered w/ optifoam ext - trace edema b/l, pulses 2+ b/l psych - a/o x 2 only Results & Data Results & Data Vital Signs (Past 12 Hours) Vital Signs Temp Pulse Resp BP BP Pulse Ox O2 Del Method 05/16/23 19:48 Room Air 05/16/23 18:07 64 97/57 L 05/16/23 17:12 64 111/56 L 05/16/23 15:15 36.7 C 64 18 126/68 94 Room Air 05/16/23 13:30 144/74 H 05/16/23 08:30 Room Air 05/16/23 08:28 37.1 C 66 18 176/67 H 92 Room Air Laboratory Results Laboratory Results - last 24 hr 05/16/23 05/16/23 05/16/23 08:18 08:18 Unknown WBC 51.85 H* RBC 4.43 L Hgb 13.6 L Hct 41.4 L MCV 93.5 MCH 30.7 MCHC 32.9 RDW Std Deviation 54.3 H RDW Coeff of Jewel 15.9 H Plt Count 115 L MPV 10.4 Immature Gran % (Auto) 0.3 Neut % (Auto) 12.5 Lymph % (Auto) 84.4 [place] % (Auto) 1.5 Eos % (Auto) 1.1 Baso % (Auto) 0.2 Neut # (Auto) 6.49 Lymph # (Auto) 43.77 H [place] # (Auto) 0.76 H Eos # (Auto) 0.55 H Baso # (Auto) 0.10 Immature Gran # (Auto) 0.18 Smudge Cells Present Sodium 140 Potassium 4.1 D Chloride 110 H Carbon Dioxide 23 Anion Gap 7 BUN 26 H Creatinine 1.29 Est Cr Clr Drug Dosing 34.6 Est GFR ( Amer) 58.2 Est GFR (Non-Af Amer) 50.2 BUN/Creatinine Ratio 20.2 H Glucose 95 Calcium 9.5 Urine Color Yellow Urine Appearance Clear Urine pH 5.5 Ur Specific [place] 1.021 Urine Protein 2+ H Urine Glucose (UA) 1+ H Urine Ketones Negative Urine Blood Trace H Urine Nitrite Negative Urine Bilirubin Negative Urine Urobilinogen Negative Ur Leukocyte Esterase Negative Urine WBC (Auto) 1-5 Urine RBC (Auto) 0-4 U Hyaline Cast (Auto) 1-5 U Epithel Cells (Auto) 5-10 H Urine Bacteria (Auto) Negative PG Care Time/CCT Total # of Minutes Spent Total Time Spent with Patient: Total time spent is greater than 50% in coordination of care (as documented) at patient's floor/unit and/or counseling patient: Coding Level of Care Code 08057 SUB INP/OBS CARE 2/35MIN Diagnoses CVA (cerebral vascular accident) I63.9 Acute confusion R41.0 COVID-19 U07.1 GERD (gastroesophageal reflux disease) K21.9 Esophagitis presence: esophagitis presence not specified 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 CAD (coronary artery disease) I25.10 Cardiomyopathy I42.9 CLL (chronic lymphocytic leukemia) C91.90 Elevated troponin R77.8 COPD (chronic obstructive pulmonary disease) J44.9 (4) GERD (gastroesophageal reflux disease) Esophagitis presence: esophagitis presence not specified Qualified Code(s): K21.9 - Gastro-esophageal reflux disease without esophagitis
[2023-05-16] MEDS: FLUTICASONE/VILANTEROL 100/25MCG 14 PUFFS/INHALER INH SCH (21:16)
[2023-05-16] MEDS: ATORVASTATIN 40 MG TAB PO SCH (21:17)
[2023-05-17] MEDS: ACETAMINOPHEN 325 MG TAB PO PRN (03:11)
[2023-05-17] MEDS: CEFEPIME 2,000 MG in SYRINGE 0 ML IV SCH ×2 (05:50→16:22)
[2023-05-17] MEDS: carvediloL 3.125 MG TAB PO SCH ×2 (07:08→16:13)
[2023-05-17] MEDS: FLUTICASONE/VILANTEROL 100/25MCG 14 PUFFS/INHALER INH SCH (08:17)
[2023-05-17] MEDS: APIXABAN 5 MG TABLET PO SCH ×2 (08:17→21:06)
[2023-05-17] MEDS: VALSARTAN 80 MG TAB PO SCH (08:17)
[2023-05-17] MEDS: FINASTERIDE 5 MG TAB PO SCH (08:18)
[2023-05-17] MEDS: TAMSULOSIN HCL 0.4 MG CAP PO SCH (08:18)
[2023-05-17] MEDS: traMADol HCL 50 MG TABLET PO PRN (08:19)
[2023-05-17 08:39] LABS: Hematocrit (blood only) 39.4 % (42.0-52.0); Hemoglobin 12.7 g/dl (14.0-18.0); Mean Corpuscular Hemoglobin 30.6 pg (25.0-34.0); Mean Corpuscular Hgb Conc 32.2 g/dL (32.0-36.0); Mean Corpuscular Volume 94.9 fL (80.0-100.0); Mean Platelet Volume 10.5 fL (9.4-12.4); Platelet Count 114 K/uL (130-400); RDW Coefficient of Variation 15.9 % (11.5-14.5); RDW Standard Deviation 54.6 fL (36.4-46.3); Red Blood Count 4.15 M/uL (4.70-6.10); White Blood Count 45.79 K/ul (4.8-10.8)
[2023-05-17 08:49] LABS: BUN Creatinine Ratio 17.8 (10-20); Calcium 9.4 mg/dl (8.6-10.3); Creatinine Clr Calc Pharmacy 30.6 ml/min; Est GFR (African American) 50.1 ml/min; Est GFR (Non-African American) 43.2 ml/min; Immunoglobulin A 317.3 mg/dl (70-400); Immunoglobulin G 626.6 mg/dl (635-1741); Immunoglobulin M 32.3 mg/dl (45-281); Potassium 3.8 mmol/L (3.5-5.1)
[2023-05-17] MEDS ORDERED: VALSARTAN 80 MG TAB PO SCH (09:00)
--- NOTE | 2023-05-17 20:53 | Hospitalist Progress Note ---
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 source? 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 regardless of etiology - continue eliquis (3) Acute confusion: Plan: Acute metabolic encephalopathy - likely 2nd to b/l strokes, hospital psychosis, +/- pneumonia, etc. Mental status today was the best he has been all week. Avoid sedatives. (4) COVID-19: Plan: dx with COVID-19 in late March 2023. COVID PCR test was positive on 05/13/23. this is likely viral shedding (noninfectious) following his illness earlier in the summer. [id number] he is in airborne isolation. b/l rales on exam - due to prior COVID-19 infection? new pneumonia? see #1 above (5) GERD (gastroesophageal reflux disease): Plan: cont pepcid 20mg BID (6) BPH loc w/o ur obs/LUTS: Plan: cont finasteride cont flomax urine cx from yesterday negative PVR yesterday was 240cc if the PVRs worsen may need catheter but follow for now (7) CAD (coronary artery disease): Plan: plavix d/c due to institution of Eliquis cont statin EF 35-40% on echo - ideally he should be on low-dose beta juan coreg 3.125mg BID if HRs will allow remains compensated (8) Cardiomyopathy: Plan: EF 35-40% on echo this admission global hypokinesis post-viral from COVID? ischemic from h/o CAD? other? is compensated on exam ideally he is on low-dose coreg or other beta juan if HR will tolerate cont low-dose ARB (valsartan 80mg daily) (9) CLL (chronic lymphocytic leukemia): Plan: follows [facility] cell lines stable including mild thrombocytopenia IgG, IgM both mildly low but will defer on IVIG at this time (10) Elevated troponin: Plan: peak HS trop was 28 2nd to myocardial demand ischemia rather than ACS (11) COPD (chronic obstructive pulmonary disease): Plan: no exacerbation at this time continue Breo Plan Shikha Toussaint - a manager portable and close friend to Mr Kline - was updated yesterday if patient does well overnight and into tomorrow can likely change to PO levaquin for pneumonia and d/c to SNF Admission and Anticipated Discharge Date Admission Date: May 07, 2023 Subjective overall patient had a good day eating ok no voiding complaints today cough improved denies dyspnea no pain any location again asks when he can discharge Review of Systems Review of Systems: cv - no chest pain, no orthopnea pulm - no dyspnea at rest or with activity GI - no nausea/emesis - no dysuria Physical Exam Physical Exam: gen - thin, NAD, best he has looked all week HENT - MMM, no thrush neck - no JVD heart - RRR, s1 s2, no murmur lungs - minimal b/l basilar rales, tachypnea resolved, no wheezes; good airation abd - soft NT ND BS+ ext - trace edema b/l, pulses 2+ b/l Results & Data Results & Data Vital Signs (Past 12 Hours) Vital Signs Temp Pulse Resp BP BP Pulse Ox O2 Del Method 05/17/23 20:36 36.5 C 62 18 180/74 H 96 Room Air 05/17/23 19:31 Room Air 05/17/23 16:26 58 L 116/63 96 Room Air 05/17/23 15:41 36.3 C L 57 L 16 97/57 L 92 Room Air 05/17/23 11:33 51 L 113/57 L Laboratory Results Laboratory Results - last 24 hr 05/17/23 05/17/23 07:56 07:56 WBC 45.79 H* RBC 4.15 L Hgb 12.7 L Hct 39.4 L MCV 94.9 MCH 30.6 MCHC 32.2 RDW Std Deviation 54.6 H RDW Coeff of Jewel 15.9 H Plt Count 114 L MPV 10.5 Sodium 140 Potassium 3.8 Chloride 110 H Carbon Dioxide 26 Anion Gap 4 BUN 26 H Creatinine 1.46 H Est Cr Clr Drug Dosing 30.6 Est GFR ( Amer) 50.1 Est GFR (Non-Af Amer) 43.2 BUN/Creatinine Ratio 17.8 Glucose 91 Calcium 9.4 IgG 626.6 L IgA 317.3 IgM 32.3 L Diagnostic Findings CHEST CTA for PULMONARY ARTERIES CT DOSE: 603.00 mGy.cm HISTORY: Shortness of breath. tachypnea, recent COVID; eval PE, pneumonia, etc TECHNIQUE: Multiaxial CT images of the chest were performed following the intravenous administration of contrast to evaluate the pulmonary arteries. 3D/Maximal intensity projection images were also obtained. Sagittal and coronal reformations were also reviewed. A dose lowering technique was utilized adhering to the principles of ALARA. COMPARISON STUDY: Chest CT 12/19/2022. Abdomen and pelvis CT 05/07/2023. 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 No evidence for an aortic dissection. 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 The aneurysm sac remains unchanged measuring up to 6.3 cm in diameter. No filling defects within the pulmonary arteries to suggest a pulmonary embolus. The heart remains mildly enlarged. No pleural or pericardial effusions. Limited views of the upper abdomen demonstrate normal liver and spleen. Upper abdominal lymphadenopathy is better appreciated on the prior abdomen and pelvis CT. The visualized cervical, subpectoral, axillary, mediastinal, and hilar lymphadenopathy has progressed compared to the prior chest CT. This is contiguous with the patient's known lymphoma. Normal esophagus. Normal thyroid gland. Severe coronary artery calcifications are noted. Old compression deformities again noted within the lower thoracic spine. No acute fractures. No pneumothorax. The central airways are patent. Emphysema and scattered blebs are again noted. Bibasilar densities have slightly progressed. This could represent atelectasis and/or pneumonia. No evidence for pulmonary edema. IMPRESSION: 1. No evidence for a pulmonary embolus. 2. Patchy bibasilar lower lobe densities have slightly progressed. This could represent atelectasis and/or pneumonia. 3. Emphysema. 4. Stable aneurysmal dilatation of the thoracic aorta as described above status post stent graft repair of the descending thoracic aorta. 5. Progressive lymphadenopathy within the neck, chest, and visualized abdomen compared to the prior chest CT. This is consistent with the patient's known history of lymphoma. ACT 112: Negative or not required by law. Electronically signed by: Rajesh Randolph M.D. 05/16/2023 7:03 PM PG Care Time/CCT Total # of Minutes Spent Total Time Spent with Patient: Total time spent is greater than 50% in coordination of care (as documented) at patient's floor/unit and/or counseling patient: Coding Level of Care Code 15853 SUB INP/OBS CARE 2/35MIN Diagnoses Pneumonia J18.9 CVA (cerebral vascular accident) I63.9 Acute confusion R41.0 COVID-19 U07.1 GERD (gastroesophageal reflux disease) K21.9 Esophagitis presence: esophagitis presence not specified 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 CAD (coronary artery disease) I25.10 Cardiomyopathy I42.9 CLL (chronic lymphocytic leukemia) C91.90 Elevated troponin R77.8 COPD (chronic obstructive pulmonary disease) J44.9 (5) GERD (gastroesophageal reflux disease) Esophagitis presence: esophagitis presence not specified Qualified Code(s): K21.9 - Gastro-esophageal reflux disease without esophagitis
[2023-05-17] MEDS: ADVANCED PROBIOTIC 1250 MG CAPSULE PO SCH (21:06)
[2023-05-17] MEDS: ATORVASTATIN 40 MG TAB PO SCH (21:07)
[2023-05-18] MEDS: traMADol HCL 50 MG TABLET PO PRN (03:51)
[2023-05-18] MEDS: ADVANCED PROBIOTIC 1250 MG CAPSULE PO SCH ×2 (07:55→09:42)
[2023-05-18] MEDS: TAMSULOSIN HCL 0.4 MG CAP PO SCH ×2 (07:56→09:42)
[2023-05-18] MEDS: APIXABAN 5 MG TABLET PO SCH ×3 (07:56→21:04)
[2023-05-18] MEDS: FINASTERIDE 5 MG TAB PO SCH ×2 (07:56→09:42)
[2023-05-18] MEDS: VALSARTAN 80 MG TAB PO SCH ×2 (07:57→09:43)
[2023-05-18] MEDS: carvediloL 3.125 MG TAB PO SCH ×3 (07:57→16:03)
[2023-05-18] MEDS: FLUTICASONE/VILANTEROL 100/25MCG 14 PUFFS/INHALER INH SCH (07:58)
[2023-05-18] MEDS ORDERED: OLANZapine 10 MG/2.1 ML SDV IM PRN (08:08)
[2023-05-18] MEDS: ZIPRASIDONE 20 MG/ML SDV IM PRN (09:36)
[2023-05-18] MEDS: levoFLOXacin 750 MG TAB PO SCH ×2 (11:21→11:33)
--- NOTE | 2023-05-18 21:00 | Hospitalist Progress Note ---
Date of Service May 18, 2023 Assessment & Plan (1) Acute confusion: Plan: Acute metabolic encephalopathy - present on/off the entire hospitalization. Strokes, pneumonia/COVID, hospital psychosis, change in rooms, poor sleep, etc -- all to blame. Overnight he didn't sleep leading to his severe confusion/agitation this am. Unfortunately had to give IM ziprasidone due to concern for staff safety. This worked well without excessive sedation. Plan to schedule melatonin 3mg HS + seroquel 25mg HS tonight. Obtain EKG in am to recheck QTc but most recent EKG showed normal QTc. keep blinds open during the day/closed at night. avoid sedatives. etc. 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 source? 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 regardless of etiology - continue eliquis (4) COVID-19: Plan: dx with COVID-19 in late March 2023. COVID PCR test was positive on 05/13/23. this is likely viral shedding (noninfectious) following his illness earlier in the summer. [id number] he is in airborne isolation. b/l rales on exam - due to prior COVID-19 infection? new pneumonia? see above (5) GERD (gastroesophageal reflux disease): Plan: cont pepcid 20mg BID (6) BPH loc w/o ur obs/LUTS: Plan: cont finasteride cont flomax urine cx recently negative PVRs have been 200-250cc not ideal but satisfactory would only place estes if PVRs are 300-350cc or more consistently cont to follow (7) CAD (coronary artery disease): Plan: plavix d/c due to institution of Eliquis cont statin EF 35-40% on echo - ideally he should be on low-dose beta juan coreg 3.125mg BID if HRs will allow remains compensated (8) Cardiomyopathy: Plan: EF 35-40% on echo this admission global hypokinesis review of record shows he has intermittently had depressed LV function last visit with cardiology 2021 post-viral from COVID? ischemic from h/o CAD? other? is compensated on exam ideally he is on low-dose coreg or other beta juan if HR will tolerate cont low-dose ARB (valsartan 80mg daily) (9) CLL (chronic lymphocytic leukemia): Plan: follows with [facility] cell lines stable including mild thrombocytopenia IgG, IgM both mildly low but will defer on IVIG at this time (10) Elevated troponin: Plan: peak HS trop was 28 2nd to myocardial demand ischemia rather than ACS (11) COPD (chronic obstructive pulmonary disease): Plan: no exacerbation at this time continue Breo Plan Shikha Toussaint - a housing assistant property manager and close friend to Mr Kline - was updated today at bedside if patient does well overnight and into tomorrow, agitation remains resolved, eating, stable vitals, stable labs - [facility] Admission and Anticipated Discharge Date Admission Date: May 07, 2023 Subjective by report patient was up all night voiding every 30-60 minutes PVR this am was again >200cc he was combative with nursing staff and phlebotomy personnel this am he remained agitated and 1:1 sitter was placed temporarily ziprasidone 20mg IM x 1 was given with improvement in agitation/combativeness 1:1 was d/c since the agitation resolved during my visit (afternoon) Shikha Toussaint was present she reports he has been nibbling at food while she has been present he hasn't been talking like usual per Shikha he has not had agitation for her I asked how he was feeling and he said "my heart aches" when asked to clarify he said "I want to go home" denied complaints otherwise he was calm and cooperative with me Review of Systems Review of Systems: cv - no cp, no orthopnea pulm - no dyspnea; mild cough - dry GI - no abd pain/nausea/emesis - LUTS present (frequency, nocturia, etc) neuro - initially said he had a headache, then denied having one overnight or today Physical Exam Physical Exam: gen - thin, NAD, sitting in chair by window eating an orange HENT - MMM, no thrush; hearing impaired (he did not have hearing aids in) neck - no JVD heart - RRR, s1 s2, no murmur lungs - minimal b/l basilar rales, otherwise CTA b/l; no wheezes abd - soft NT ND BS+ ext - trace edema b/l, pulses 2+ b/l psych - flat affect neuro - strength 5/5 x 4 exts Results & Data Results & Data Vital Signs (Past 12 Hours) Vital Signs Temp Pulse Resp BP Pulse Ox O2 Del Method 05/18/23 19:30 Room Air 05/18/23 15:32 36.6 C 68 18 185/72 H 95 Room Air Laboratory Results no labs - patient refused this am - he was combative with phlebotomy staff PG Care Time/CCT Total # of Minutes Spent Total Time Spent with Patient: Total time spent is greater than 50% in coordination of care (as documented) at patient's floor/unit and/or counseling patient: Coding Level of Care Code 41003 SUB INP/OBS CARE 3/50MIN Diagnoses Acute confusion R41.0 Pneumonia J18.9 CVA (cerebral vascular accident) I63.9 COVID-19 U07.1 GERD (gastroesophageal reflux disease) K21.9 Esophagitis presence: esophagitis presence not specified 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 CAD (coronary artery disease) I25.10 Cardiomyopathy I42.9 CLL (chronic lymphocytic leukemia) C91.90 Elevated troponin R77.8 COPD (chronic obstructive pulmonary disease) J44.9 (5) GERD (gastroesophageal reflux disease) Esophagitis presence: esophagitis presence not specified Qualified Code(s): K21.9 - Gastro-esophageal reflux disease without esophagitis
[2023-05-18] MEDS: QUEtiapine FUMARATE 25 MG TABLET PO SCH (21:05)
[2023-05-18] MEDS: ATORVASTATIN 40 MG TAB PO SCH (21:05)
[2023-05-18] MEDS: MELATONIN 3 MG TAB PO SCH (21:05)
[2023-05-19] MEDS: VALSARTAN 80 MG TAB PO SCH (07:52)
[2023-05-19] MEDS: APIXABAN 5 MG TABLET PO SCH ×2 (07:52→21:05)
[2023-05-19] MEDS: FINASTERIDE 5 MG TAB PO SCH (07:52)
[2023-05-19] MEDS: TAMSULOSIN HCL 0.4 MG CAP PO SCH (07:53)
[2023-05-19] MEDS: carvediloL 3.125 MG TAB PO SCH ×2 (07:53→17:25)
[2023-05-19] MEDS: ADVANCED PROBIOTIC 1250 MG CAPSULE PO SCH (07:53)
[2023-05-19] MEDS: FLUTICASONE/VILANTEROL 100/25MCG 14 PUFFS/INHALER INH SCH (07:54)
[2023-05-19 08:13] LABS: Hematocrit (blood only) 40.8 % (42.0-52.0); Hemoglobin 13.3 g/dl (14.0-18.0); Mean Corpuscular Hemoglobin 30.9 pg (25.0-34.0); Mean Corpuscular Hgb Conc 32.6 g/dL (32.0-36.0); Mean Corpuscular Volume 94.7 fL (80.0-100.0); Mean Platelet Volume 10.6 fL (9.4-12.4); Nucleated RBC # (auto) 0.14 K/uL (0-0.12); Nucleated RBC % (auto) 0.3 %; Platelet Count 110 K/uL (130-400); RDW Standard Deviation 54.5 fL (36.4-46.3); Red Blood Count 4.31 M/uL (4.70-6.10); White Blood Count 48.89 K/ul (4.8-10.8)
[2023-05-19 09:00] LABS: Calcium 10.3 mg/dl (8.6-10.3); Potassium 3.8 mmol/L (3.5-5.1)
[2023-05-19 09:05] LABS: BUN Creatinine Ratio 17.8 (10-20); Creatinine Clr Calc Pharmacy 31.1 ml/min; Est GFR (African American) 50.1 ml/min; Est GFR (Non-African American) 43.2 ml/min
[2023-05-19] MEDS: levoFLOXacin 750 MG TAB PO SCH (10:51)
[2023-05-19] MEDS: SENNA 8.6 MG TAB PO SCH (10:51)
[2023-05-19] MEDS: POLYETHYLENE (MIRALAX) 17 GM PACK PO SCH (10:52)
--- NOTE | 2023-05-19 12:41 | Electrocardiogram Report ---
Test Reason : Blood Pressure : / mmHG Vent. Rate : 062 BPM Atrial Rate : 062 BPM P-R Int : 204 ms QRS Dur : 148 ms QT Int : 456 ms P-R-T Axes : 055 -46 004 degrees QTc Int : 462 ms Normal sinus rhythm Right bundle branch block Left anterior fascicular block Bifascicular block Inferior infarct (cited on or before 27-JUN-2022) Abnormal ECG When compared with ECG of 07-MAY-2023 11:06, Premature ventricular complexes are no longer Present Premature supraventricular complexes are no longer Present Confirmed by Christopher Cabrera ([id number]) on 05/19/2023 12:40:56 PM Referred By: REFERRED SELF Confirmed By:Christopher Cabrera
--- NOTE | 2023-05-19 12:51 | Electrocardiogram Report ---
Test Reason : Blood Pressure : / mmHG Vent. Rate : 056 BPM Atrial Rate : 056 BPM P-R Int : 208 ms QRS Dur : 158 ms QT Int : 448 ms P-R-T Axes : 024 -36 -33 degrees QTc Int : 432 ms Poor data quality, interpretation may be adversely affected Sinus bradycardia Left axis deviation Right bundle branch block Abnormal ECG When compared with ECG of 18-MAY-2023 21:16, (unconfirmed) T wave inversion now evident in Anterior leads Confirmed by Christopher Cabrera ([id number]) on 05/19/2023 12:51:41 PM Referred By: REFERRED SELF Confirmed By:Christopher Cabrera
--- NOTE | 2023-05-19 20:57 | Hospitalist Progress Note ---
Date of Service May 19, 2023 Assessment & Plan (1) Acute confusion: Plan: Acute metabolic encephalopathy - present on/off the entire hospitalization. Strokes, pneumonia/COVID, hospital psychosis, change in rooms, poor sleep, etc -- all to blame. Improved agitation/combativeness/sundowning by use of melatonin 3mg HS + seroquel 25mg HS last pm. Continue both. EKG today with normal QTc. keep blinds open during the day/closed at night. avoid sedatives. etc. 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 source? 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 regardless of etiology - continue eliquis (4) COVID-19: Plan: dx with COVID-19 in late March 2023. COVID PCR test was positive on 05/13/23. this is likely viral shedding (noninfectious) following his illness earlier in the summer. [id number] he is in airborne isolation. treating for possible bacterial superinfection. (5) GERD (gastroesophageal reflux disease): Plan: cont pepcid 20mg BID (6) BPH loc w/o ur obs/LUTS: Plan: cont finasteride cont flomax urine cx recently negative PVRs have been 200-250cc not ideal but satisfactory would only place estes if PVRs are 300-350cc or more consistently cont to follow (7) CAD (coronary artery disease): Plan: plavix d/c due to institution of Eliquis cont statin EF 35-40% on echo - ideally he should be on low-dose beta juan coreg 3.125mg BID remains compensated (8) Cardiomyopathy: Plan: EF 35-40% on echo this admission global hypokinesis review of record shows he has intermittently had depressed LV function last visit with cardiology 2021 post-viral from COVID? ischemic from h/o CAD? other? is compensated on exam cont coreg 3.125mg BID cont valsartan 80mg daily (9) CLL (chronic lymphocytic leukemia): Plan: follows [facility] cell lines stable including mild thrombocytopenia IgG, IgM both mildly low but will defer on IVIG at this time (10) Elevated troponin: Plan: peak HS trop was 28 2nd to myocardial demand ischemia rather than ACS (11) COPD (chronic obstructive pulmonary disease): Plan: no exacerbation at this time continue Breo Plan Shikha Toussaint - a patient case manager and close friend to Mr Kline - was updated yesterday at bedside unfortunately [facility]'t have a bed until next week I spoke with infection control - since we cannot confirm his COVID+ status from early April ([facility] +[facility]) he will have to remain on COVID precautions Admission and Anticipated Discharge Date Admission Date: May 07, 2023 Subjective patient slept better overnight still confused overnight, but no agitation/combativeness today - cooperative with his blood draw this am eating fair during my bedside visit he was confused and communicating with him was very, very hard as he didn't have his hearing aids he could not offer any meaningful history/ros Review of Systems Review of Systems: Unobtainable due to cognitive status Physical Exam Physical Exam: gen - thin, NAD, laying in bed, confused but smiling/cooperative/not agitated HENT - MMM, no thrush; severely hearing impaired (he did not have hearing aids in) neck - no JVD heart - RRR, s1 s2, no murmur lungs - minimal b/l basilar rales; no wheezes abd - soft NT ND BS+ ext - trace edema b/l, pulses 2+ b/l psych - flat affect, confused Results & Data Results & Data Vital Signs (Past 12 Hours) Vital Signs Temp Pulse Pulse Resp BP Pulse Ox O2 Del Method 05/19/23 17:20 84 133/75 05/19/23 15:36 36.6 C 91 H 20 108/69 91 Room Air Laboratory Results Laboratory Results - last 24 hr 05/19/23 05/19/23 07:22 07:22 WBC 48.89 H* RBC 4.31 L Hgb 13.3 L Hct 40.8 L MCV 94.7 MCH 30.9 MCHC 32.6 RDW Std Deviation 54.5 H RDW Coeff of Jewel 16.0 H Plt Count 110 L MPV 10.6 Absolute Nucleated RBC 0.14 H Nucleated RBC % (auto) 0.3 Sodium 140 Potassium 3.8 Chloride 109 H Carbon Dioxide 26 Anion Gap 5 BUN 26 H Creatinine 1.46 H Est Cr Clr Drug Dosing 31.1 Est GFR ( Amer) 50.1 Est GFR (Non-Af Amer) 43.2 BUN/Creatinine Ratio 17.8 Glucose 89 Calcium 10.3 PG Care Time/CCT Total # of Minutes Spent Total Time Spent with Patient: Total time spent is greater than 50% in coordination of care (as documented) at patient's floor/unit and/or counseling patient: Coding Level of Care Code 10569 SUB INP/OBS CARE 2/35MIN Diagnoses Acute confusion R41.0 Pneumonia J18.9 CVA (cerebral vascular accident) I63.9 COVID-19 U07.1 GERD (gastroesophageal reflux disease) K21.9 Esophagitis presence: esophagitis presence not specified 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 CAD (coronary artery disease) I25.10 Cardiomyopathy I42.9 CLL (chronic lymphocytic leukemia) C91.90 Elevated troponin R77.8 COPD (chronic obstructive pulmonary disease) J44.9 (5) GERD (gastroesophageal reflux disease) Esophagitis presence: esophagitis presence not specified Qualified Code(s): K21.9 - Gastro-esophageal reflux disease without esophagitis
[2023-05-19] MEDS: MELATONIN 3 MG TAB PO SCH (21:06)
[2023-05-19] MEDS: QUEtiapine FUMARATE 25 MG TABLET PO SCH (21:06)
[2023-05-19] MEDS: ATORVASTATIN 40 MG TAB PO SCH (21:06)
[2023-05-20] MEDS: carvediloL 3.125 MG TAB PO SCH ×2 (09:15→17:13)
[2023-05-20] MEDS: POLYETHYLENE (MIRALAX) 17 GM PACK PO SCH (09:16)
[2023-05-20] MEDS: APIXABAN 5 MG TABLET PO SCH ×2 (09:16→20:51)
[2023-05-20] MEDS: FLUTICASONE/VILANTEROL 100/25MCG 14 PUFFS/INHALER INH SCH (09:17)
[2023-05-20] MEDS: TAMSULOSIN HCL 0.4 MG CAP PO SCH (09:17)
[2023-05-20] MEDS: SENNA 8.6 MG TAB PO SCH (09:17)
[2023-05-20] MEDS: ADVANCED PROBIOTIC 1250 MG CAPSULE PO SCH (09:17)
[2023-05-20] MEDS: FINASTERIDE 5 MG TAB PO SCH (09:17)
[2023-05-20] MEDS: VALSARTAN 80 MG TAB PO SCH (09:18)
--- NOTE | 2023-05-20 20:14 | Hospitalist Progress Note ---
Date of Service May 20, 2023 Assessment & Plan (1) Acute confusion: Plan: Acute metabolic encephalopathy - present on/off the entire hospitalization. Strokes, pneumonia/COVID, hospital psychosis, change in rooms, poor sleep, etc -- all to blame. Continue melatonin 3mg HS + seroquel 25mg HS last pm. Tolerating both. Most recent EKG with normal QTc. keep blinds open during the day/closed at night. avoid sedatives. etc. 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 source? 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 regardless of etiology - continue eliquis (4) COVID-19: Plan: dx with COVID-19 in late March 2023. COVID PCR test was positive on 05/13/23. this is likely viral shedding (noninfectious) following his illness earlier in the summer. [id number] he is in airborne isolation. treating for possible bacterial superinfection. (5) GERD (gastroesophageal reflux disease): Plan: cont pepcid 20mg BID (6) BPH loc w/o ur obs/LUTS: Plan: cont finasteride cont flomax urine cx recently negative PVRs have been 200-250cc not ideal but satisfactory would only place estes if PVRs are 300-350cc or more consistently cont to follow (7) CAD (coronary artery disease): Plan: plavix d/c due to institution of Eliquis cont statin EF 35-40% on echo - ideally he should be on low-dose beta juan coreg 3.125mg BID remains compensated (8) Cardiomyopathy: Plan: EF 35-40% on echo this admission global hypokinesis review of record shows he has intermittently had depressed LV function last visit with cardiology 2021 post-viral from COVID? ischemic from h/o CAD? other? is compensated on exam cont coreg 3.125mg BID cont valsartan 80mg daily (9) CLL (chronic lymphocytic leukemia): Plan: [facility] stable including mild thrombocytopenia IgG, IgM both mildly low but defer on IVIG given his stability from an infection standpoint (10) Elevated troponin: Plan: peak HS trop was 28 2nd to myocardial demand ischemia rather than ACS (11) COPD (chronic obstructive pulmonary disease): Plan: no exacerbation at this time continue Breo Plan Shikha Toussaint - a hvac manager and close friend to Mr Kline - was updated today at bedside unfortunately [facility] won't have a bed until next week I spoke with infection control - since we cannot confirm his COVID+ status from early April (we called [facility] and they have no record of a +test) he will have to remain on COVID precautions Admission and Anticipated Discharge Date Admission Date: May 07, 2023 Subjective slept last pm eating throughout the day decently per staff confused, really only oriented to self continues to be incontinent of urine during my visit his friend Shikha Harristis was present Mr Kline knew her full name he was otherwise unable to provide any meaningful history or review of systems Ms Toussaint stated that his current speech is his baseline speech (heavy Maltese accent) Review of Systems Review of Systems: Unobtainable due to cognitive status Physical Exam Physical Exam: gen - thin, NAD, laying in bed, confused; difficult to understand him at times HENT - MMM, no thrush neck - no JVD heart - RRR, s1 s2, no murmur lungs - minimal b/l basilar rales - no change; no wheezes abd - soft NT ND BS+ ext - trace edema b/l, pulses 2+ b/l psych - a/o x 1 Results & Data Results & Data Vital Signs (Past 12 Hours) Vital Signs Temp Pulse Resp BP BP Pulse Ox O2 Del Method 05/20/23 17:05 72 20 153/82 H Room Air 05/20/23 12:20 36.9 C 78 20 149/76 H Room Air 05/20/23 08:15 Room Air 05/20/23 09:14 36.8 C 74 20 153/66 H 93 Room Air PG Care Time/CCT Total # of Minutes Spent Total Time Spent with Patient: Total time spent is greater than 50% in coordination of care (as documented) at patient's floor/unit and/or counseling patient: Coding Level of Care Code 60422 SUB INP/OBS CARE 2/35MIN Diagnoses Acute confusion R41.0 Pneumonia J18.9 CVA (cerebral vascular accident) I63.9 COVID-19 U07.1 GERD (gastroesophageal reflux disease) K21.9 Esophagitis presence: esophagitis presence not specified 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 CAD (coronary artery disease) I25.10 Cardiomyopathy I42.9 CLL (chronic lymphocytic leukemia) C91.90 Elevated troponin R77.8 COPD (chronic obstructive pulmonary disease) J44.9 (5) GERD (gastroesophageal reflux disease) Esophagitis presence: esophagitis presence not specified Qualified Code(s): K21.9 - Gastro-esophageal reflux disease without esophagitis
[2023-05-20] MEDS: ATORVASTATIN 40 MG TAB PO SCH (20:32)
[2023-05-20] MEDS: QUEtiapine FUMARATE 25 MG TABLET PO SCH (20:32)
[2023-05-20] MEDS: MELATONIN 3 MG TAB PO SCH (20:51)
[2023-05-21] MEDS: carvediloL 3.125 MG TAB PO SCH ×3 (08:08→18:04)
[2023-05-21] MEDS: APIXABAN 5 MG TABLET PO SCH ×3 (08:08→22:26)
[2023-05-21] MEDS: ADVANCED PROBIOTIC 1250 MG CAPSULE PO SCH ×2 (08:09→10:33)
[2023-05-21] MEDS: FLUTICASONE/VILANTEROL 100/25MCG 14 PUFFS/INHALER INH SCH (08:09)
[2023-05-21] MEDS: VALSARTAN 80 MG TAB PO SCH ×2 (08:09→10:34)
[2023-05-21] MEDS: SENNA 8.6 MG TAB PO SCH ×2 (08:10→10:33)
[2023-05-21] MEDS: FINASTERIDE 5 MG TAB PO SCH ×2 (08:10→10:33)
[2023-05-21] MEDS: POLYETHYLENE (MIRALAX) 17 GM PACK PO SCH ×2 (08:10→10:33)
[2023-05-21] MEDS: TAMSULOSIN HCL 0.4 MG CAP PO SCH ×2 (08:10→10:33)
--- NOTE | 2023-05-21 20:55 | Hospitalist Progress Note ---
Date of Service May 21, 2023 Assessment & Plan (1) Acute confusion: Plan: WORSE TODAY. He would likely benefit from a morning dose of seroquel in addition to PM dose. Getting him off isolation would also help. his acute metabolic encephalopathy has been present on/off the entire hospitalization and has progressively worsened to the point where he is refusing labs/imaging/care. Strokes, pneumonia/COVID, hospital psychosis, poor sleep, etc -- all to blame. Continue melatonin 3mg HS + seroquel 25mg HS last pm (when he will take it). If he refuses his PO meds will need to give IM ziprasidone. Most recent EKG with normal QTc. keep blinds open during the day/closed at night. avoid sedatives. etc. lengthy discussion held yesterday with Ms Toussaint re: the delirium unfortunately he is refusing CT head to make sure no ICH or other process. and, he would never tolerate an MRI of the brain at this time. 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 source? 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 echo w/o thrombus CTA head/neck negative no a.fib on monitors early in the stay regardless of etiology - continue eliquis (4) COVID-19: Plan: dx with COVID-19 in late March 2023. COVID PCR test was positive on 05/13/23. this is likely viral shedding (noninfectious) following his illness earlier in the summer. [id number] he is in airborne isolation. treating for possible bacterial superinfection. we attempted to get his COVID testing from early April from [facility] but it was not available (5) GERD (gastroesophageal reflux disease): Plan: cont pepcid 20mg BID (6) BPH loc w/o ur obs/LUTS: Plan: cont finasteride cont flomax urine cx recently negative PVRs have been 200-250cc not ideal but satisfactory would only place estes if PVRs are 300-350cc or more consistently cont to follow (7) CAD (coronary artery disease): Plan: plavix d/c due to institution of Eliquis cont statin EF 35-40% on echo - ideally he should be on low-dose beta juan coreg 3.125mg BID remains compensated (8) Cardiomyopathy: Plan: EF 35-40% on echo this admission global hypokinesis review of record shows he has intermittently had depressed LV function last visit with cardiology 2021 post-viral from COVID? ischemic from h/o CAD? other? is compensated on exam cont coreg 3.125mg BID cont valsartan 80mg daily (9) CLL (chronic lymphocytic leukemia): Plan: follows with [facility] cell lines stable including mild thrombocytopenia IgG, IgM both mildly low but defer on IVIG given his stability from an infection standpoint (10) Elevated troponin: Plan: peak HS trop was 28 2nd to myocardial demand ischemia rather than ACS (11) COPD (chronic obstructive pulmonary disease): Plan: no exacerbation at this time continue Breo Plan Shikha Toussaint - a commercial real estate manager and close friend to Mr Kline - was updated yesterday at bedside unfortunately [facility] won't have a bed until next week I spoke with infection control - since we cannot confirm his COVID+ status from early April (we called [facility] and they have no record of a +test) he will have to remain on COVID precautions Admission and Anticipated Discharge Date Admission Date: May 07, 2023 Subjective despite taking PM meds last pm he refused labs once again this am he has been paranoid and confused refused his CT head during my bedside rounds he could not tell me where he was, why he was here, etc he was paranoid, stating he "knew what I was doing" and that he was "mad at Shikha" (POA Shikha Toussaint) explained to him that he was in the hospital, that he had had COVID in April, then he had strokes & DVTs he didn't believe any of this, stating "ah, come on, you know what you are doing" tried to re-orient him once again without success appetite fair per staff remains incontinent of bowel and bladder Review of Systems Review of Systems: Unobtainable due to cognitive status Physical Exam Physical Exam: gen - sitting in chair, severely confused, agitated, holding a newspaper but not really reading it HENT - MMM, no thrush neck - no JVD heart - RRR, s1 s2, no murmur lungs - scant b/l basilar rales - no change; no wheezes abd - soft NT ND BS+ ext - trace edema b/l, pulses 2+ b/l psych - a/o x 1 only Results & Data Results & Data Vital Signs (Past 12 Hours) Vital Signs Temp Pulse Pulse Resp BP Pulse Ox O2 Del Method 05/21/23 19:47 36.5 C 64 16 162/67 H 92 Room Air 05/21/23 18:05 72 100/60 05/21/23 15:38 77 22 104/63 Room Air Laboratory Results pt refused labs Diagnostic Findings pt refused CT head PG Care Time/CCT Total # of Minutes Spent Total Time Spent with Patient: Total time spent is greater than 50% in coordination of care (as documented) at patient's floor/unit and/or counseling patient: Coding Level of Care Code 92061 SUB INP/OBS CARE 2/35MIN Diagnoses Acute confusion R41.0 Pneumonia J18.9 CVA (cerebral vascular accident) I63.9 COVID-19 U07.1 GERD (gastroesophageal reflux disease) K21.9 Esophagitis presence: esophagitis presence not specified 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 CAD (coronary artery disease) I25.10 Cardiomyopathy I42.9 CLL (chronic lymphocytic leukemia) C91.90 Elevated troponin R77.8 COPD (chronic obstructive pulmonary disease) J44.9 (5) GERD (gastroesophageal reflux disease) Esophagitis presence: esophagitis presence not specified Qualified Code(s): K21.9 - Gastro-esophageal reflux disease without esophagitis
[2023-05-21] MEDS: ATORVASTATIN 40 MG TAB PO SCH (22:26)
[2023-05-21] MEDS: QUEtiapine FUMARATE 25 MG TABLET PO SCH (22:26)
[2023-05-21] MEDS: MELATONIN 3 MG TAB PO SCH (22:26)
[2023-05-22 09:00] LABS: Hematocrit (blood only) 44.6 % (42.0-52.0); Hemoglobin 14.5 g/dl (14.0-18.0); Mean Corpuscular Hemoglobin 30.9 pg (25.0-34.0); Mean Corpuscular Hgb Conc 32.5 g/dL (32.0-36.0); Mean Corpuscular Volume 94.9 fL (80.0-100.0); Mean Platelet Volume 10.7 fL (9.4-12.4); Platelet Count 125 K/uL (130-400); RDW Coefficient of Variation 15.9 % (11.5-14.5); RDW Standard Deviation 54.8 fL (36.4-46.3); White Blood Count 60.72 K/ul (4.8-10.8)
[2023-05-22] MEDS: carvediloL 3.125 MG TAB PO SCH ×2 (09:16→17:52)
[2023-05-22 09:21] LABS: Calcium 10.6 mg/dl (8.6-10.3); Est GFR (African American) 48.5 ml/min; Est GFR (Non-African American) 41.9 ml/min; Potassium 4.2 mmol/L (3.5-5.1)
[2023-05-22] MEDS: ZIPRASIDONE 20 MG/ML SDV IM PRN (09:24)
[2023-05-22] MEDS: FINASTERIDE 5 MG TAB PO SCH (09:25)
[2023-05-22] MEDS: POLYETHYLENE (MIRALAX) 17 GM PACK PO SCH (09:25)
[2023-05-22] MEDS: VALSARTAN 80 MG TAB PO SCH (09:26)
[2023-05-22] MEDS: FLUTICASONE/VILANTEROL 100/25MCG 14 PUFFS/INHALER INH SCH (09:26)
[2023-05-22] MEDS: APIXABAN 5 MG TABLET PO SCH ×2 (09:46→20:46)
[2023-05-22] MEDS: SENNA 8.6 MG TAB PO SCH (09:47)
[2023-05-22] MEDS: ADVANCED PROBIOTIC 1250 MG CAPSULE PO SCH (09:48)
[2023-05-22] MEDS: TAMSULOSIN HCL 0.4 MG CAP PO SCH (09:49)
[2023-05-22] MEDS: levoFLOXacin 750 MG TAB PO SCH (10:00)
[2023-05-22] MEDS ORDERED: SODIUM CHLORIDE 0.9% 1000ML 1,000 ML IV SCH (11:30)
--- NOTE | 2023-05-22 19:46 | Hospitalist Progress Note ---
Date of Service May 22, 2023 Assessment & Plan (1) Acute confusion: Plan: waxing/waning over his prolonged hospitalization. had IM geodon late last week which helped nicely. this was followed by PO HS seroquel which seemed to be helping but inconsistently. his acute metabolic encephalopathy worsened yesterday to the point where he was refusing labs/imaging/care. Strokes, pneumonia/COVID, hospital psychosis, poor sleep, etc -- all to blame. gave IM geodon 20mg x 1 this am with very good results. less paranoid today, less agitated, cooperative. will schedule PO geodon 20mg orally at HS. cont melatonin HS. re-eval tomorrow - he could need geodon BID. Most recent EKG with normal QTc. Will repeat in am. keep blinds open during the day/closed at night. avoid sedatives. etc. 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 source... 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 echo w/o thrombus CTA head/neck negative no a.fib on monitors early in the stay regardless of etiology - continue eliquis (4) COVID-19: Plan: dx with COVID-19 in late March 2023. COVID PCR test was positive on 05/13/23. this is likely viral shedding (noninfectious) following his illness earlier in the summer. [id number] he is in airborne isolation. we attempted to get his COVID testing from early April from [facility] but it was not available corresponded with infection control -- at this time airborne isolation will be d/c (5) GERD (gastroesophageal reflux disease): Plan: cont pepcid 20mg BID (6) BPH loc w/o ur obs/LUTS: Plan: cont finasteride cont flomax urine cx recently negative PVRs have been 200-250cc not ideal but satisfactory would only place estes if PVRs are 300-350cc or more consistently cont to follow (7) CAD (coronary artery disease): Plan: plavix d/c due to institution of Eliquis cont statin cont coreg 3.125mg BID cont valsartan remains compensated (8) Cardiomyopathy: Plan: EF 35-40% on echo this admission global hypokinesis review of record shows he has intermittently had depressed LV function over the last few years last visit with cardiology 2021 post-viral from COVID? ischemic from h/o CAD? other? is compensated on exam and, if anything, volume contracted as his liquid intake has not been robust last few days in the setting of his confusion his high calcium is also likely due to volume contraction cont coreg 3.125mg BID cont valsartan 80mg daily (9) CLL (chronic lymphocytic leukemia): Plan: [facility] with [facility] cell lines stable including mild thrombocytopenia IgG, IgM both mildly low but defer on IVIG given his stability from an infection standpoint (10) Elevated troponin: Plan: peak HS trop was 28 2nd to myocardial demand ischemia rather than ACS (11) COPD (chronic obstructive pulmonary disease): Plan: no exacerbation at this time continue Breo (12) Hypercalcemia: Plan: he is not on meds that would cause such start isotonic fluids x 1 liter and repeat BMP am if the calcium does not correct with IV fluids check intact PTH, etc Plan Shikha Toussaint - a laundromat manager and close friend to Mr Kline - was updated today at bedside [facility] airborne [facility] ideally he has 2 good days from mental status standpoint, eating/drinking adequately, taking all meds, stable labs, etc Admission and Anticipated Discharge Date Admission Date: May 07, 2023 Subjective last pm Mr Kline refused his meds he also refused all medications yesterday morning he was up/down during the night-time last night this am I asked nursing to give IM bob this was given w/o incident later on he did take AM meds also, per staff, he did eat throughout the day during my visit his friend Shikha Toussaint as at bedside Mr Kline again did not remember me he wasn't sure why he was here or what day it was he was cooperative during my visit his speech was a little easier to understand today he denied pain in any location or any other complaints Review of Systems Review of Systems: pulm - no major cough, no dyspnea GI - no pain CV - no chest pain Physical Exam Physical Exam: gen - laying in bed, looks better than yesterday, speech easier to understand, cooperative, less confused HENT - MMM, no thrush neck - no JVD heart - RRR, s1 s2, no murmur lungs - CTA b/l; rales resolved; no wheezes abd - soft NT ND BS+ ext - no edema b/l, pulses 2+ b/l psych - a/o x 1 only Results & Data Results & Data Vital Signs (Past 12 Hours) Vital Signs Temp Pulse Resp BP Pulse Ox O2 Del Method 05/22/23 17:51 71 111/66 05/22/23 15:37 36.4 C L 66 16 147/72 H 95 Room Air 05/22/23 08:00 Room Air 05/22/23 09:15 74 20 116/57 L 92 Room Air Laboratory Results Laboratory Results - last 24 hr 05/22/23 05/22/23 08:34 08:34 WBC 60.72 H* RBC 4.70 Hgb 14.5 Hct 44.6 MCV 94.9 MCH 30.9 MCHC 32.5 RDW Std Deviation 54.8 H RDW Coeff of Jewel 15.9 H Plt Count 125 L MPV 10.7 Sodium 140 Potassium 4.2 Chloride 108 H Carbon Dioxide 26 Anion Gap 6 BUN 33 H Creatinine 1.50 H Est Cr Clr Drug Dosing 30.0 Est GFR ( Amer) 48.5 Est GFR (Non-Af Amer) 41.9 BUN/Creatinine Ratio 22.0 H Glucose 123 H Calcium 10.6 H PG Care Time/CCT Total # of Minutes Spent Total Time Spent with Patient: Total time spent is greater than 50% in coordination of care (as documented) at patient's floor/unit and/or counseling patient: Coding Level of Care Code 42182 SUB INP/OBS CARE 2/35MIN Diagnoses Acute confusion R41.0 Pneumonia J18.9 CVA (cerebral vascular accident) I63.9 COVID-19 U07.1 GERD (gastroesophageal reflux disease) K21.9 Esophagitis presence: esophagitis presence not specified 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 CAD (coronary artery disease) I25.10 Cardiomyopathy I42.9 CLL (chronic lymphocytic leukemia) C91.90 Elevated troponin R77.8 COPD (chronic obstructive pulmonary disease) J44.9 Hypercalcemia E83.52 (5) GERD (gastroesophageal reflux disease) Esophagitis presence: esophagitis presence not specified Qualified Code(s): K21.9 - Gastro-esophageal reflux disease without esophagitis
[2023-05-22] MEDS: MELATONIN 3 MG TAB PO SCH (20:46)
[2023-05-22] MEDS: ATORVASTATIN 40 MG TAB PO SCH (20:46)
[2023-05-23] MEDS: TAMSULOSIN HCL 0.4 MG CAP PO SCH (07:43)
[2023-05-23] MEDS: ADVANCED PROBIOTIC 1250 MG CAPSULE PO SCH (07:43)
[2023-05-23] MEDS: POLYETHYLENE (MIRALAX) 17 GM PACK PO SCH ×2 (07:43→08:03)
[2023-05-23] MEDS: SENNA 8.6 MG TAB PO SCH (07:43)
[2023-05-23] MEDS: VALSARTAN 80 MG TAB PO SCH (07:43)
[2023-05-23] MEDS: FINASTERIDE 5 MG TAB PO SCH (07:44)
[2023-05-23] MEDS: carvediloL 3.125 MG TAB PO SCH ×2 (07:44→16:54)
[2023-05-23] MEDS: APIXABAN 5 MG TABLET PO SCH ×2 (07:45→20:28)
[2023-05-23] MEDS: FLUTICASONE/VILANTEROL 100/25MCG 14 PUFFS/INHALER INH SCH (07:45)
[2023-05-23 08:14] LABS: BUN Creatinine Ratio 22.3 (10-20); Calcium 10.7 mg/dl (8.6-10.3); Creatinine Clr Calc Pharmacy 30.5 ml/min; Est GFR (African American) 49.3 ml/min; Est GFR (Non-African American) 42.5 ml/min; Potassium 4.2 mmol/L (3.5-5.1)
[2023-05-23] MEDS: ACETAMINOPHEN 325 MG TAB PO PRN (09:54)
[2023-05-23] MEDS: FLUTICASONE PROPIONATE NA SPR 16 GM BTL SCH (10:31)
--- NOTE | 2023-05-23 18:06 | Electrocardiogram Report ---
Test Reason : Blood Pressure : / mmHG Vent. Rate : 055 BPM Atrial Rate : 055 BPM P-R Int : 210 ms QRS Dur : 154 ms QT Int : 462 ms P-R-T Axes : 031 -34 -11 degrees QTc Int : 441 ms Sinus bradycardia with 1st degree A-V block Left axis deviation Right bundle branch block Inferior infarct , age undetermined Abnormal ECG When compared with ECG of 19-MAY-2023 07:45, T wave inversion no longer evident in Anterior leads Confirmed by Gio Galindo [id number] on 05/23/2023 6:05:43 PM Referred By: REFERRED SELF Confirmed By:Gio Galindo
--- NOTE | 2023-05-23 18:25 | Hospitalist Progress Note ---
Date of Service May 23, 2023 Assessment & Plan (1) Acute confusion: Plan: Seems to have improved Hospital-acquired delirium improving. Not agitated, not paranoid. waxing/waning over his prolonged hospitalization. had IM geodon late last week which helped nicely. this was followed by PO HS seroquel which seemed to be helping but inconsistently. his acute metabolic encephalopathy worsened yesterday to the point where he was refusing labs/imaging/care. Strokes, pneumonia/COVID, hospital psychosis, poor sleep, etc -- all to blame. gave IM geodon 20mg x 1 this am with very good results. less paranoid today, less agitated, cooperative. Continue scheduled PO geodon 20mg orally at HS. cont melatonin HS. Most recent EKG with normal QTc. keep blinds open during the day/closed at night. avoid sedatives. etc. 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 source... 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 echo w/o thrombus CTA head/neck negative no a.fib on monitors early in the stay regardless of etiology - continue eliquis (4) COVID-19: Plan: dx with COVID-19 in late March 2023. COVID PCR test was positive on 05/13/23. this is likely viral shedding (noninfectious) following his illness earlier in the summer. He is now off of airborne isolation. we attempted to get his COVID testing from early April from [facility] but it was not available (5) GERD (gastroesophageal reflux disease): Plan: cont pepcid 20mg BID (6) BPH loc w/o ur obs/LUTS: Plan: cont finasteride cont flomax urine cx recently negative PVRs have been 200-250cc not ideal but satisfactory would only place estes if PVRs are 300-350cc or more consistently cont to follow (7) CAD (coronary artery disease): Plan: plavix d/c due to institution of Eliquis cont statin cont coreg 3.125mg BID cont valsartan remains compensated (8) Cardiomyopathy: Plan: EF 35-40% on echo this admission global hypokinesis review of record shows he has intermittently had depressed LV function over the last few years last visit with cardiology 2021 post-viral from COVID? ischemic from h/o CAD? other? is compensated on exam and, if anything, volume contracted as his liquid intake has not been robust last few days in the setting of his confusion his high calcium is also likely due to volume contraction cont coreg 3.125mg BID cont valsartan 80mg daily (9) CLL (chronic lymphocytic leukemia): Plan: follows with [facility] cell lines stable including mild thrombocytopenia IgG, IgM both mildly low but defer on IVIG given his stability from an infection standpoint (10) Elevated troponin: Plan: peak HS trop was 28 2nd to myocardial demand ischemia rather than ACS (11) COPD (chronic obstructive pulmonary disease): Plan: no exacerbation at this time continue Breo (12) Hypercalcemia: Plan: he is not on meds that would cause such Plan dispo - [facility] ideally he has 2 good days from mental status standpoint, eating/drinking adequately, taking all meds, stable labs, etc Admission and Anticipated Discharge Date Admission Date: May 07, 2023 Subjective Patient feels better overall. Able to hold a conversation. Does not appear to be as confused today. Review of Systems Review of Systems: All systems reviewed & are unremarkable except as noted in Subjective Physical Exam Physical Exam: General: Awake, conversant Heart: S1, S2/regular rate and rhythm, no murmur rubs or gallops Lungs: Clear to auscultation bilaterally. Normal effort Abdomen: Soft/nontender/nondistended. No hepatosplenomegaly Extremities: No clubbing/cyanosis. No edema Behavior: Appropriate, cooperative Results & Data Results & Data Vital Signs (Past 12 Hours) Vital Signs Temp Pulse Resp BP Pulse Ox O2 Del Method 05/23/23 17:00 69 171/74 H 05/23/23 16:17 36.8 C 61 16 146/73 H 94 Room Air 05/23/23 07:30 Room Air 05/23/23 08:20 36.6 C 65 16 185/77 H 95 Room Air Laboratory Results Abnormal lab results 05/23/23 Range/Units 07:33 BUN 33 H (6-23) mg/dl Creatinine 1.48 H (0.6-1.4) mg/dl BUN/Creatinine Ratio 22.3 H (10-20) Glucose 100 H (70-99(Fasting)) mg/dl Calcium 10.7 H (8.6-10.3) mg/dl PG Care Time/CCT Total # of Minutes Spent Total Time Spent with Patient: Total time spent is greater than 50% in coordination of care (as documented) at patient's floor/unit and/or counseling patient: Coding Level of Care Code 93638 SUB INP/OBS CARE 2/35MIN Diagnoses Acute confusion R41.0 Pneumonia J18.9 CVA (cerebral vascular accident) I63.9 COVID-19 U07.1 GERD (gastroesophageal reflux disease) K21.9 Esophagitis presence: esophagitis presence not specified 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 CAD (coronary artery disease) I25.10 Cardiomyopathy I42.9 CLL (chronic lymphocytic leukemia) C91.90 Elevated troponin R77.8 COPD (chronic obstructive pulmonary disease) J44.9 Hypercalcemia E83.52 Time Spent (min) 35 (5) GERD (gastroesophageal reflux disease) Esophagitis presence: esophagitis presence not specified Qualified Code(s): K21.9 - Gastro-esophageal reflux disease without esophagitis
[2023-05-23] MEDS: ATORVASTATIN 40 MG TAB PO SCH (20:28)
[2023-05-23] MEDS: MELATONIN 3 MG TAB PO SCH (20:28)
[2023-05-24] MEDS: FLUTICASONE PROPIONATE NA SPR 16 GM BTL SCH (07:41)
[2023-05-24] MEDS: SENNA 8.6 MG TAB PO SCH (07:42)
[2023-05-24] MEDS: TAMSULOSIN HCL 0.4 MG CAP PO SCH (07:42)
[2023-05-24] MEDS: VALSARTAN 80 MG TAB PO SCH (07:42)
[2023-05-24] MEDS: FLUTICASONE/VILANTEROL 100/25MCG 14 PUFFS/INHALER INH SCH (07:42)
[2023-05-24] MEDS: ADVANCED PROBIOTIC 1250 MG CAPSULE PO SCH (07:43)
[2023-05-24] MEDS: FINASTERIDE 5 MG TAB PO SCH (07:44)
[2023-05-24] MEDS: carvediloL 3.125 MG TAB PO SCH ×2 (07:44→16:25)
[2023-05-24] MEDS: APIXABAN 5 MG TABLET PO SCH ×2 (07:44→20:17)
[2023-05-24] MEDS: POLYETHYLENE (MIRALAX) 17 GM PACK PO SCH (07:46)
[2023-05-24] MEDS ORDERED: VALSARTAN 80 MG TAB PO ONE (09:15)
[2023-05-24] MEDS: amLODIPine BESYLATE 5 MG TAB PO SCH (09:48)
--- NOTE | 2023-05-24 16:49 | Hospitalist Progress Note ---
Date of Service May 24, 2023 Assessment & Plan (1) Acute confusion: Plan: Seems to have improved Hospital-acquired delirium improving. Not agitated, not paranoid. waxing/waning over his prolonged hospitalization. had IM geodon late last week which helped nicely. this was followed by PO HS seroquel which seemed to be helping but inconsistently. his acute metabolic encephalopathy worsened During this hospital stay to the point where he was refusing labs/imaging/care. Strokes, pneumonia/COVID, hospital psychosis, poor sleep, etc -- all to blame. gave IM geodon 20mg x 1 with very good results. less paranoid today, less agitated, cooperative. Continue scheduled PO geodon 20mg orally at HS. cont melatonin HS. Most recent EKG with normal QTc. keep blinds open during the day/closed at night. avoid sedatives. etc. 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 source... 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 echo w/o thrombus CTA head/neck negative no a.fib on monitors early in the stay regardless of etiology - continue eliquis (4) COVID-19: Plan: dx with COVID-19 in late March 2023. COVID PCR test was positive on 05/13/23. this is likely viral shedding (noninfectious) following his illness earlier in the summer. He is now off of airborne isolation. we attempted to get his COVID testing from early April from [facility] but it was not available (5) GERD (gastroesophageal reflux disease): Plan: cont pepcid 20mg BID (6) BPH loc w/o ur obs/LUTS: Plan: cont finasteride cont flomax urine cx recently negative PVRs have been 200-250cc not ideal but satisfactory would only place estes if PVRs are 300-350cc or more consistently cont to follow (7) CAD (coronary artery disease): Plan: plavix d/c due to institution of Eliquis cont statin cont coreg 3.125mg BID blood pressure elevated today. Added Norvasc and doubled the dose of valsartan remains compensated (8) Cardiomyopathy: Plan: EF 35-40% on echo this admission global hypokinesis review of record shows he has intermittently had depressed LV function over the last few years last visit with cardiology 2021 post-viral from COVID? ischemic from h/o CAD? other? is compensated on exam and, if anything, volume contracted as his liquid intake has not been robust last few days in the setting of his confusion his high calcium is also likely due to volume contraction cont coreg 3.125mg BID increase the dose of valsartan to 160 mg daily to manage blood pressure (9) CLL (chronic lymphocytic leukemia): Plan: follows with [facility] cell lines stable including mild thrombocytopenia IgG, IgM both mildly low but defer on IVIG given his stability from an infection standpoint (10) Elevated troponin: Plan: peak HS trop was 28 2nd to myocardial demand ischemia rather than ACS (11) COPD (chronic obstructive pulmonary disease): Plan: no exacerbation at this time continue Breo (12) Hypercalcemia: Plan: he is not on meds that would cause such Plan dispo - [facility] ideally he has 2 good days from mental status standpoint, eating/drinking adequately, taking all meds, stable labs, etc Approaching discharge in a day or 2 Admission and Anticipated Discharge Date Admission Date: May 07, 2023 Subjective patient is doing well today. No new complaints. Says that his brain was foggy and is clearing up. He is able to hold a conversation. Review of Systems Review of Systems: All systems reviewed & are unremarkable except as noted in Subjective Physical Exam Physical Exam: General: Awake, conversant Heart: S1, S2/regular rate and rhythm, no murmur rubs or gallops Lungs: Clear to auscultation bilaterally. Normal effort Abdomen: Soft/nontender/nondistended. No hepatosplenomegaly Extremities: No clubbing/cyanosis. No edema Behavior: Appropriate, cooperative Results & Data Results & Data Vital Signs (Past 12 Hours) Vital Signs Temp Pulse Pulse Resp BP Pulse Ox O2 Del Method 05/24/23 15:12 36.5 C 67 16 132/72 96 Room Air 05/24/23 09:39 Room Air 05/24/23 07:06 36.3 C L 58 L 16 199/84 H 97 Room Air PG Care Time/CCT Total # of Minutes Spent Total Time Spent with Patient: Total time spent is greater than 50% in coordination of care (as documented) at patient's floor/unit and/or counseling patient: Coding Level of Care Code 73179 SUB INP/OBS CARE 2/35MIN Diagnoses Acute confusion R41.0 Pneumonia J18.9 CVA (cerebral vascular accident) I63.9 COVID-19 U07.1 GERD (gastroesophageal reflux disease) K21.9 Esophagitis presence: esophagitis presence not specified 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 CAD (coronary artery disease) I25.10 Cardiomyopathy I42.9 CLL (chronic lymphocytic leukemia) C91.90 Elevated troponin R77.8 COPD (chronic obstructive pulmonary disease) J44.9 Hypercalcemia E83.52 Time Spent (min) 35 (5) GERD (gastroesophageal reflux disease) Esophagitis presence: esophagitis presence not specified Qualified Code(s): K21.9 - Gastro-esophageal reflux disease without esophagitis
[2023-05-24] MEDS: ATORVASTATIN 40 MG TAB PO SCH (20:17)
[2023-05-24] MEDS: MELATONIN 3 MG TAB PO SCH (20:18)
[2023-05-25] MEDS: SENNA 8.6 MG TAB PO SCH (08:45)
[2023-05-25] MEDS: ADVANCED PROBIOTIC 1250 MG CAPSULE PO SCH (08:45)
[2023-05-25] MEDS: amLODIPine BESYLATE 5 MG TAB PO SCH (08:46)
[2023-05-25] MEDS: FINASTERIDE 5 MG TAB PO SCH (08:46)
[2023-05-25] MEDS: APIXABAN 5 MG TABLET PO SCH (08:46)
[2023-05-25] MEDS: carvediloL 3.125 MG TAB PO SCH (08:47)
[2023-05-25] MEDS: POLYETHYLENE (MIRALAX) 17 GM PACK PO SCH (08:47)
[2023-05-25] MEDS: FLUTICASONE/VILANTEROL 100/25MCG 14 PUFFS/INHALER INH SCH (08:48)
[2023-05-25] MEDS: FLUTICASONE PROPIONATE NA SPR 16 GM BTL SCH (08:48)
[2023-05-25] MEDS: TAMSULOSIN HCL 0.4 MG CAP PO SCH (08:48)
[2023-05-25] MEDS ORDERED: VALSARTAN 80 MG TAB PO SCH (09:00)
--- NOTE | 2023-05-25 13:05 | Discharge Summary ---
Date of Service May 25, 2023 Admission HPI Per Admitting Provider Randal Kline is a 87-year-old male who was found down on the ground outside [facility] with increased confusion. Was sent into EMS for confusion. Randal banda" lives at [facility]. 930am this mornign was found outside in the dirt without briefs of pajamajs and without his walker. Was noted to be confused. Is seen with child care leader at bedside who notes he is not a dementia/memory patient and his confusion is very different from normal. After waking up and being brought inside has an episode of confusion and urinated on the floor. Contacted child care leader several hours later who recognized this was very abnormal for him and recommended he be seen in the ER. - History of CLL. Just saw Dr. Purdy last week and is on holiday from any treatments at the moment, white count is high today. Last measurement is at [facility], not sure what it was last week. - Platelets are always low. At time bedside visit reports that his stomach is a little bit achy. Abdomen is lightly tender to palpation at the right quadrant and epigastrium. Denies chest pain, chest pressure, lightheadedness, dizziness. Very hard of hearing. Endorse he has a mild left earache and some congestion. Denies fever/c hills/sweats. Does endorse having COVID 6 weeks ago. No shortness of breath at time of bedside visit, notes he had is wheezing a lot more than normal. Medical History: Reviewed Medications: Reviewed Surgical History: Reviewed Family history: Reviewed Allergies: Reviewed Social History: Reviewed Code Status: DNR/DNI Admission Exam Per Admitting Provider General: Oriented to name and place. . NAD. Cooperative. HEENT: Atraumatic, normocephalic.Extremely [place]. Vision intact. R TM with serous fluid, no injection/erythema/purulence Pulm: CTAB A&P +scattered inspiratory wheezes. Symmetrical chest rise. No increased work of breathing. No respiratory distress. Cardiac: RRR, -mrg. Radial pulses intact and symmetrical. Abdominal: Nontender, nondistended, soft. BS present. Ext: warm, dry. No edema. L chronic stasis hyperpigmentation, no current swelling. No erythema. 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 Normal effort Abdomen: Soft/nontender/nondistended. No hepatosplenomegaly Extremities: No clubbing/cyanosis. No edema Behavior: Appropriate, cooperative Discharge Data Allergies Allergy/AdvReac Type Severity Reaction Status Date / Time KVNG Inhibitors AdvReac Mild Cough Verified 05/11/23 12:39 codeine AdvReac Mild Nausea Verified 05/11/23 12:39 Consultations 05/07/23 13:02 ED Decision to Admit Stat 05/09/23 13:04 Consult Psychiatry Routine 05/10/23 22:02 Consult Neurology Routine Ordered Studies 05/07/23 10:49 CT head/brain wo con Stat 05/07/23 13:59 CT abd pelvis IV con only Stat 05/10/23 13:11 MRI Brain [MR brain wo con] Urgent 05/10/23 22:02 CT angio head w con Routine CT angio neck with con Routine US venous doppler LE BI Urgent 05/16/23 16:49 CT angio chest PE protocol Routine 05/21/23 10:39 CT head/brain wo con Routine Hospital Course (1) Acute confusion: Seems to have improved Hospital-acquired delirium resolved Not agitated, not paranoid. waxing/waning over his prolonged hospitalization. had IM geodon late last week which helped nicely. his acute metabolic encephalopathy worsened During this hospital stay to the point where he was refusing labs/imaging/care. Strokes, pneumonia/COVID, hospital psychosis, poor sleep, etc -- all to blame. started him on Geodon during this hospital stay less paranoid today, less agitated, cooperative. Most recent EKG with normal QTc. keep blinds open during the day/closed at night. avoid sedatives. etc. 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 source... 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 echo w/o thrombus CTA head/neck negative no a.fib on monitors early in the stay regardless of etiology - continue eliquis (4) COVID-19: dx with COVID-19 in late March 2023. COVID PCR test was positive on 05/13/23. this is likely viral shedding (noninfectious) following his illness earlier in the summer. He is now off of airborne isolation. we attempted to get his COVID testing from early April from [facility] but it was not available (5) GERD (gastroesophageal reflux disease): cont pepcid 20mg BID (6) BPH loc w/o ur obs/LUTS: cont finasteride cont flomax urine cx recently negative PVRs have been 200-250cc not ideal but satisfactory would only place esets if PVRs are 300-350cc or more consistently cont to follow (7) CAD (coronary artery disease): plavix d/c due to institution of Eliquis cont statin cont coreg 3.125mg BID blood pressure elevated today. Added Norvasc and doubled the dose of valsartan remains compensated (8) Cardiomyopathy: EF 35-40% on echo this admission global hypokinesis review of record shows he has intermittently had depressed LV function over the last few years last visit with cardiology 2021 post-viral from COVID? ischemic from h/o CAD? other? is compensated on exam and, if anything, volume contracted as his liquid intake has not been robust last few days in the setting of his confusion his high calcium is also likely due to volume contraction cont coreg 3.125mg BID increase the dose of valsartan to 160 mg daily to manage blood pressure Will need to follow-up with cardiology outpatient (9) CLL (chronic lymphocytic leukemia): follows [facility] cell lines stable including mild thrombocytopenia IgG, IgM both mildly low but defer on IVIG given his stability from an infection standpoint (10) Elevated troponin: peak HS trop was 28 2nd to myocardial demand ischemia rather than ACS (11) COPD (chronic obstructive pulmonary disease): no exacerbation at this time continue Breo (12) Hypercalcemia: he is not on meds that would cause such Plan discharge today to rehab Total Time Total Time Spent Total Time Spent (In Minutes): 35 Discharge Plan Discharge Items Patient Disposition: Transfer Residential Fac Reason For Visit: UNWITNESSED COLLASPE, AMS, WHEEZING Discharge Diagnosis: bilateral strokes on MRI, likely embolic Hospital-acquired delirium Recent COVID infection Activity: As commented below Activity Comment: per PT/OT recommendation Non-emergency contact: Primary Care Provider Call non-emergency contact if: you have any medication questions and your symptoms worsen Follow-up/Referrals: Christopher Kearns MD [Primary Care Provider] - Diet: Heart Healthy Addtl Attending Provider Instructions: advised to follow-up with PCP at rehab in 3 days and PCP in the community within a week of discharge from rehab unit Pending Studies at Discharge: No Stand-Alone Forms: My [employer], Medications to Prevent Stroke Skilled Items Patient informed of condition?: Yes DNR: Yes Discharge Level of Care: Skilled Communicable Disease: No Discharge Prognosis: Stable Lines: None Urinary Catheter: No Medications and DC Order Prescriptions: New atorvastatin 40 mg Tablet 40 mg PO HS 30 Days Qty: 30 0RF valsartan [Diovan] 80 mg Tablet 160 mg PO QAM 30 Days Qty: 60 0RF amlodipine [Norvasc] 5 mg Tablet 10 mg PO QAM 30 Days Qty: 60 0RF carvedilol 3.125 mg Tablet 3.125 mg PO BIDM 30 Days Qty: 60 0RF Continued fluticasone propionate 50 mcg/actuation spray,suspension 2 spray INTRANASAL DAILY Qty: 16 5RF famotidine 40 mg tablet 40 mg PO DAILY Qty: 90 3RF nystatin 100,000 unit/gram cream 1 applic topical BID PRN (Reason: rash) Qty: 30 1RF Rx Instructions: Apply twice a day to irritated groin area finasteride 5 mg tablet 5 mg PO QAM Qty: 90 3RF potassium chloride 10 mEq tablet extended release 10 meq PO BID Qty: 60 5RF polyethylene glycol 3350 [Miralax] 17 gram/dose powder 17 g PO HS PRN (Reason: constipation) docusate sodium [Colace] 100 mg capsule 100 mg PO DAILY PRN (Reason: Constipation) Systane (PF) 0.4-0.3 % dropperette 1 drp ophthalmic (eye) BID PRN (Reason: Dry Eye(S)) clotrimazole-betamethasone 1-0.05 % cream 1 applic topical .qhs Qty: 45 11RF Rx Instructions: Apply small/pea-sized amount topically before bed cholecalciferol (vitamin D3) [Vitamin D3] 2,000 unit Tablet 2,000 unit PO QAM acetaminophen [Tylenol] 325 mg Tablet 650 mg PO Q4H PRN (Reason: Pain) loperamide 2 mg capsule 2 mg PO Q4H tamsulosin 0.4 mg capsule 0.4 mg PO HS olopatadine [Pataday Twice Daily Relief] 0.1 % Drops 1 drp OPHTHALMIC (EYE) BID Rx Instructions: separate doses by at least 6-8 hours ondansetron 4 mg tablet,disintegrating 4 mg PO Q8H PRN (Reason: Nausea And Vomiting) Discontinued clopidogrel 75 mg tablet 75 mg PO DAILY Qty: 90 3RF valsartan 80 mg tablet 80 mg PO QAM Qty: 90 3RF Discharge Orders: Discharge Order (Routine); Ordered 05/25/23 Ordered By: Jolene Sheppard Admission Data Admit Date/Time: 05/07/23 14:14 Attending Provider: Jolene Sheppard Admit Provider: Henry Reveles Primary Care Provider: Christopher Kearns Other Providers: [facility] ; Henry Reveles ; Kaelyn Oviedo ; Bina Soto ; Shyam Franks ; Alexis Cuevas Other Interventions: Discharge Summary Assessment (RN) Last Done: 05/25/23 13:16 Coding Level of Care Code 69064 INP/OBS DISCH >30 MIN Diagnoses Acute confusion R41.0 Pneumonia J18.9 CVA (cerebral vascular accident) I63.9 COVID-19 U07.1 GERD (gastroesophageal reflux disease) K21.9 Esophagitis presence: esophagitis presence not specified 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 CAD (coronary artery disease) I25.10 Cardiomyopathy I42.9 CLL (chronic lymphocytic leukemia) C91.90 Elevated troponin R77.8 COPD (chronic obstructive pulmonary disease) J44.9 Hypercalcemia E83.52
== END 2023-05-25 15:42 | DRG 64 ==
LOC: ED 10:41 → SUATTDRO 14:14 → 2W 14:14 → 2S 05-11 00:17 → 3W 05-15 09:17

== ENCOUNTER 2023-10-19 09:22 | Observation (INO) ==
--- NOTE | 2023-10-04 15:54 | PAT Medication Instructions ---
Medication Instructions Date of Service October 04, 2023 Home Medications Medication Instructions Recorded fluticasone propionate 50 2 spray intranasal DAILY Allergic 10/26/22 mcg/actuation nasal Symptoms #16 grams spray,suspension famotidine 40 mg tablet 40 mg PO DAILY #90 tabs 07/03/23 potassium chloride 10 mEq 10 meq PO BID #60 tabs 07/03/23 tablet,extended release amlodipine 5 mg tablet 5 mg PO DAILY #90 tabs 07/27/23 valsartan 80 mg tablet 80 mg PO DAILY #90 tabs 07/27/23 cholecalciferol (vitamin D3) 50 2,000 unit PO QAM #90 tabs 08/04/23 mcg (2,000 unit) tablet (Vitamin D3) carvedilol 3.125 mg tablet 3.125 mg PO BID #60 tabs 08/14/23 finasteride 5 mg tablet 5 mg PO QAM #90 tabs 08/14/23 tamsulosin 0.4 mg capsule 0.4 mg PO HS #90 caps 08/14/23 apixaban 2.5 mg tablet 2.5 mg PO BID #60 tabs 09/13/23 docusate sodium 100 mg capsule (Colace) 100 mg PO DAILY PRN Constipation fluticasone propionate 50 mcg/actuation nasal spray,suspension 2 spray intranasal DAILY Allergic Symptoms peg 400-propylene glycol (PF) 0.4 %-0.3 % eye drops in a dropperette (Systane (PF)) 1 drp ophthalmic (eye) BID PRN Dry Eye(S) acetaminophen 325 mg tablet 650 mg PO BID famotidine 40 mg tablet 40 mg PO DAILY potassium chloride 10 mEq tablet,extended release 10 meq PO BID amlodipine 5 mg tablet 5 mg PO DAILY loperamide 2 mg tablet 2 mg PO DAILY PRN loose stools valsartan 80 mg tablet 80 mg PO DAILY cholecalciferol (vitamin D3) 50 mcg (2,000 unit) tablet (Vitamin D3) 2,000 unit PO QAM carvedilol 3.125 mg tablet 3.125 mg PO BID finasteride 5 mg tablet 5 mg PO QAM tamsulosin 0.4 mg capsule 0.4 mg PO HS apixaban 2.5 mg tablet 2.5 mg PO BID acetaminophen 325 mg tablet 650 mg PO Q4 PRN Pain amoxicillin 500 mg tablet 2,000 mg PO DIRECTED PRN prior to dental procedures atorvastatin 40 mg tablet 40 mg PO QAM Continue as directed amoxicillin 500 mg tablet 2,000 mg PO DIRECTED PRN prior to dental procedures ASK your prescriber and surgeon apixaban 2.5 mg tablet 2.5 mg PO BID DO NOT take the morning of surgery docusate sodium 100 mg capsule (Colace) 100 mg PO DAILY PRN Constipation potassium chloride 10 mEq tablet,extended release 10 meq PO BID loperamide 2 mg tablet 2 mg PO DAILY PRN loose stools valsartan 80 mg tablet 80 mg PO DAILY cholecalciferol (vitamin D3) 50 mcg (2,000 unit) tablet (Vitamin D3) 2,000 unit PO QAM Take morning of surgery With a small sip of water, OTHERWISE NOTHING TO EAT OR DRINK AFTER MIDNIGHT: fluticasone propionate 50 mcg/actuation nasal spray,suspension 2 spray intranasal DAILY Allergic Symptoms peg 400-propylene glycol (PF) 0.4 %-0.3 % eye drops in a dropperette (Systane (PF)) 1 drp ophthalmic (eye) BID PRN Dry Eye(S) (if needed) acetaminophen 325 mg tablet 650 mg PO BID famotidine 40 mg tablet 40 mg PO DAILY amlodipine 5 mg tablet 5 mg PO DAILY carvedilol 3.125 mg tablet 3.125 mg PO BID finasteride 5 mg tablet 5 mg PO QAM acetaminophen 325 mg tablet 650 mg PO Q4 PRN Pain (if needed) atorvastatin 40 mg tablet 40 mg PO QAM Take evening before surgery docusate sodium 100 mg capsule (Colace) 100 mg PO DAILY PRN Constipation(if needed) fluticasone propionate 50 mcg/actuation nasal spray,suspension 2 spray intranasal DAILY Allergic Symptoms peg 400-propylene glycol (PF) 0.4 %-0.3 % eye drops in a dropperette (Systane (PF)) 1 drp ophthalmic (eye) BID PRN Dry Eye(S) (if needed) acetaminophen 325 mg tablet 650 mg PO BID potassium chloride 10 mEq tablet,extended release 10 meq PO BID loperamide 2 mg tablet 2 mg PO DAILY PRN loose stools (if needed) carvedilol 3.125 mg tablet 3.125 mg PO BID tamsulosin 0.4 mg capsule 0.4 mg PO HS acetaminophen 325 mg tablet 650 mg PO Q4 PRN Pain (if needed) Other Notes If you have any questions please call us at [phone] or [phone] or or [phone]
--- NOTE | 2023-10-12 08:40 | Anesthesiology Consultation ---
Date of Service October 12, 2023 Assessment & Plan (1) Encounter for pre-operative examination: Chart Review Chart Review: Acceptable Risk for Surgery (pending cardio clearance ) and Patient NOT seen in Pre Admission Testing - Discussed with Dr. Gonzalez- ideally would like cardio evaluation due to decreased EF on 05/2023 ECHO (patient with multiple risk factors and discharge summary from 05/2023 had recommended cardio follow up as outpatient)- patient scheduled to see [facility] 10/18/23 at 830am. Transportation arrangements have been made for appointment per patient's case manger and surgeon's office made aware -Infectious Disease screening: Per PAT nursing assessment on 10/04/23. Patient resides at [facility]- no current Covid at facility. No known infectious disease contacts in past 10 days or current infectious disease symptoms. No recent travel outside the country. Patient planning for rapid Covid test at [facility] 10/16/23. Will order [facility] for DOS Last seen by PCP 10/09/23= Hypertensionwill discontinue amlodipine. Check BP every other day. If BP below 110/70 would consider cutting valsartan in half to 40 mg daily. Does get intermittent episodes of lightheadednesswill ensure that glucose and BP gets checked if this occurs. Gait abnormalityuses walker. CLLfollowing with heme-onc. Cardiomyopathystable. CADstable on current regiment. Thrombocytopeniastable. Urethral strictureplan for cystoscopy with possible cystoscopy with cystolitholopaxy, dilation, resection and evacuation by urology. Last seen by cardiology 07/15/2022 = patient seen for follow-up. Initially referred to cardiology for right bundle branch block and abnormal echo. Cardiomyopathymildly reduced LV systolic function reported during hospitalization in 2020 for stroke. Repeat imaging has demonstrated normal LV systolic function both by echo and myocardial perfusion study. Myocardial perfusion study was negative for ischemia. No specific treatment warranted. Appears euvolemic. CADrecords indicate mild nonobstructive CAD in the past but unclear how this was diagnosedpatient denies ever having cardiac catheterization. Certainly has documented atherosclerosis in general. Treat for presumed CAD. Antiplatelet therapy has been discontinued during hospital stay for periprosthetic hip fracture in favor for Eliquis. HypertensionBP controlled. Dyslipidemiawell-controlled. Right bundle branch blockchronic issue. Carotid artery stenosis status post left CEAfollows with vascular. AAA status post TEVARfollows with vascular. "From a cardiac perspective, aspirin 81 mg daily would be sufficient for presumed CAD due to atherosclerosis identified in other vessels. Plavix has been recommended by Neurology in the past due to recurrent stroke on aspirin 81 mg daily and then 325 mg daily. Plavix then discontinued during recent hospital stay in July of 2022 with periprosthetic hip fracture, complicated by thrombocytopenia in the setting of CLL. He was then discharged on Eliquis. He should discuss with orthopedics if they would require him to be on Eliquis for a prolonged period of time following recent hip surgery. Duration of this therapy will be deferred to his other providers as he is not on Eliquis for cardiac indication. If Eliquis is discontinued, would recommend that he resume neurology-recommended Plavix if no contraindication. If there are concerns or contraindication, would defer this to Neurology." Patient would like to follow-up on as-needed basisreferred initially for abnormal echoLV systolic function has normalized on repeat images. Patient can follow-up as needed History Surgery Operation Date: 10/19/23 09:45 Proposed Procedures p Cystolithopaxy (Bladder Stone Fragmentation and Removal). Possible Dilation, Possible Resection, Possible Evacuation - Marques Pool, DO Height/Weight Height: 5 ft 6 in Weight: 60.016 kg Allergies Allergy/AdvReac Type Severity Reaction Status Date / Time KVNG Inhibitors AdvReac Mild Cough Verified 10/09/23 15:44 codeine AdvReac Mild Nausea Verified 10/09/23 15:44 Medications Home Medications Medication Instructions Recorded Confirmed Last Taken docusate sodium 100 mg capsule 100 mg PO DAILY PRN Constipation 07/15/22 10/09/23 Unknown (Colace) fluticasone propionate 50 2 spray intranasal DAILY Allergic 10/26/22 10/09/23 Unknown mcg/actuation nasal Symptoms #16 grams spray,suspension peg 400-propylene glycol (PF) 0.4 1 drp ophthalmic (eye) BID PRN Dry 12/09/22 10/09/23 Unknown %-0.3 % eye drops in a dropperette Eye(S) (Systane (PF)) acetaminophen 325 mg tablet 650 mg PO BID 06/08/23 10/09/23 Unknown famotidine 40 mg tablet 40 mg PO DAILY #90 tabs 07/03/23 10/09/23 Unknown potassium chloride 10 mEq 10 meq PO BID #60 tabs 10/02/23 01/08/24 Unknown tablet,extended release loperamide 2 mg tablet 2 mg PO DAILY PRN loose stools 07/27/23 10/09/23 Unknown valsartan 80 mg tablet 80 mg PO DAILY #90 tabs 07/27/23 10/09/23 Unknown cholecalciferol (vitamin D3) 50 2,000 unit PO QAM #90 tabs 08/04/23 10/09/23 Unknown mcg (2,000 unit) tablet (Vitamin D3) carvedilol 3.125 mg tablet 3.125 mg PO BID #60 tabs 08/14/23 10/09/23 Unknown finasteride 5 mg tablet 5 mg PO QAM #90 tabs 08/14/23 10/09/23 Unknown tamsulosin 0.4 mg capsule 0.4 mg PO HS #90 caps 08/14/23 10/09/23 Unknown apixaban 2.5 mg tablet 2.5 mg PO BID #60 tabs 09/13/23 10/04/23 Unknown acetaminophen 325 mg tablet 650 mg PO Q4 PRN Pain 10/04/23 10/09/23 Unknown atorvastatin 40 mg tablet 40 mg PO QAM 10/04/23 10/09/23 Unknown blood sugar diagnostic #100 ea 10/09/23 10/09/23 Unknown lancets 30 gauge (OneTouch Delica #100 ea 10/09/23 10/09/23 Unknown Plus Lancet) lancing device with lancets kit #1 ea 10/09/23 10/09/23 Unknown (OneTouch Delica Plus Lancing Device kit) Past Medical History Medical History (Updated 10/13/23 @ 15:11 by Ramona Moore PA-C) Aortic aneurysm - S/p TEVAR (2016) - Per chest CTA 05/16/23- Stable Bifascicular block Chronic, dating back to at least 08/2018 per chart review BPH loc w/o ur obs/LUTS CAD (coronary artery disease) Nonobstructive per cardio records (pt denies cardiac cath per 01/18/22 cardio note) Cardiomyopathy EF 35-40% per 05/2023 ECHO (EF 60-65% on 2020 ECHO) Carotid artery disease S/p left carotid endarterectomy (2013) CKD (chronic kidney disease) CLL (chronic lymphocytic leukemia) COVID-19 No issues in the past 30 days as of 10/04/23 nursing assessment Hearing deficit History of seizure [place] r/t hypoglycemic episodes (last ) History of stroke Initial stroke 2007- felt secondary to carotid disease (s/p left CEA) Possible second CVA shortly after first CVA Per records- CVA 10/23/20 Embolic strokes 05/10/2023 No residual effects Hyperlipidemia Hypertension Osteoporosis PVD (peripheral vascular disease) Thrombocytopenia Past Family History Family History Brother Colorectal cancer Stroke Family history of diabetes mellitus Father Heart disease Hypertension Stroke Other No family history of adverse response to anesthesia Denies family history of Ovarian cancer Prostate cancer Myocardial infarction Breast cancer Past Surgical History Surgical History H/O right inguinal hernia repair (08/03/20) Open right inguinal hernia repair. Dr. Wright 08/03/2020 H/O thoracic aortic aneurysm repair Hip fracture requiring operative repair LEFT HIP History of carotid endarterectomy LEFT History of cataract surgery RT/LEFT History of circumcision History of hernia surgery LEFT INGUINAL 1980 History of left hip replacement History of right hip replacement History of tonsillectomy 1944 Hx of nasal polypectomy Nausea and vomiting after administration of anesthetic agent S/P left inguinal hernia repair (03/21/22) Recurrent left inguinal hernia repair. Dr. Wright S/P total right hip arthroplasty Status post incision and drainage (06/26/20) incision and drainage in the office of the left posterior thigh abscess 06/26/20 Dr. Wright in office Status post thoracic aortic aneurysm repair (2016) Social History Smoking Status: Former smoker tobacco type: cigarettes and pipe Smoking cigarettes per day: 12 YEARS AGO Do You Dip or Chew Tobacco: No Hx Alcohol Use: Yes Alcohol type: beer and wine alcohol intake frequency: holidays/special occasions only Hx Substance Use: No substance use type: does not use Lab Results Anesthesia Preop Results Results Anesthesia Widget: WBC 74.66 K/ul (4.8-10.8) H* 10/09/23 Hgb 12.9 g/dl (14.0-18.0) L 10/09/23 Hct 41.8 % (42.0-52.0) L 10/09/23 Plt 129 K/uL (130-400) L 10/09/23 Na 140 mmol/L (136-145) 10/09/23 K 4.0 mmol/L (3.5-5.1) 10/09/23 Cl 110 mmol/L (98-107) H 10/09/23 CO2 23 mmol/L (21-32) 10/09/23 BUN 26 mg/dl (6-23) H 10/09/23 Creat 1.89 mg/dl (0.6-1.4) H 10/09/23 Glucose Level 121 mg/dl (70-99(Fasting)) H 10/09/23 Testing Laboratory Results Leukocytosis- hx of CLL (higher than most recent WBC counts) (reviewed by PCP- feels stable per office visit) Elevated creatine- stable since 08/202310/08/23= URINE CULTURE: Three types of organisms present, all low counts probable skin angélica Electrocardiogram Date: 07/21/23 Findings: + SB @ (58bpm) RBBB Inferior infarct, age undetermined When compared to EKG from Jun 26, 2023- PACs are no longer present per cardio (Cannot rule out inferior infarct on 04/29/22 EKG; EKG similar in appearance by personal visual inspection to 05/03/22 EKG) Chest X-Ray Date: 07/21/23 FINDINGS: An AP, portable, upright chest radiograph is compared to chest x-ray and chest CT dated 05/16/2023. The examination is degraded by portable technique and patient rotation. The heart is enlarged. The pulmonary vasculature is noncongested. There is atherosclerotic calcification of the thoracic aorta with aneurysmal dilatation and a stent graft in place. This is unchanged from previous. There is emphysema with chronic interstitial thickening. There is unchanged mild elevation of the right hemidiaphragm. There is bibasilar scarring/atelectasis. No airspace consolidation or large pleural effusion is identified. No pneumothorax is seen. The skeletal structures are osteopenic. The bony thorax is grossly intact. IMPRESSION: 1. Cardiomegaly and emphysema without radiographic evidence of congestive failure. 2. No airspace consolidation or large pleural effusion is identified. 3. Additional chronic changes as above Echocardiogram Date: 05/11/23 EF: 35-40% LV Function: dysfunctional Other Findings: + LVH (Mild/concentric) LV systolic function moderately reduced Moderate global hypokinesis of left ventricle Mild AR. Mild to moderate MR. Stress Test Date: 12/18/20 Type: nuclear Negative myocardial perfusion study for significant ischemia. Fixed inferior defect may be due to attenuation artifact given normal wall motion. Normal LV systolic function. EF 65%. Lexiscan induced chest tightness. Nondiagnostic Lexiscan EKG. Other Testing Chest CTA 05/16/23= No evidence for a pulmonary embolus. Patchy bibasilar lower lobe densities have slightly progressed. This could represent atelectasis and/or pneumonia. Emphysema. 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 No evidence for an aortic dissection. 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 The aneurysm sac remains unchanged measuring up to 6.3 cm in diameter. Progressive lymphadenopathy within the neck, chest, and visualized abdomen compared to the prior chest CT. This is consistent with the patient's known history of lymphoma. Neck CTA 05/10/23= No acute findings in the arteries of the neck. Right internal carotid artery: Unremarkable. Extracranial segment is patent with no occlusion or significant stenosis. No dissection. Right vertebral artery: Unremarkable. No occlusion or significant stenosis. No dissection. Moderate atherosclerotic change of the proximal ICA without focal stenosis. No dissection Left vertebral artery: Unremarkable. No occlusion or significant stenosis. No dissection. Head CTA 05/10/23= Normal head CTA. Brain MRI 05/10/23= Scattered acute embolic infarctions in the bilateral basal nuclei, frontal lobes, and left temporal stem. Right frontal convexity extra axial mass measuring up to 1.5 cm, likely a small meningioma. No significant mass effect. Global parenchymal volume loss with chronic microvascular ischemic changes. Polypoid soft tissue in the nasal cavity likely representing polyps. Recommend direct visualization.
[~2023-10-19 09:22] MED LIST changes: -LACTATED RINGER'S 1,000 ML IV SCH; +LR 15ML/HR IV SCH
[2023-10-19] MEDS ORDERED: ONDANSETRON INJ 2 MG/ML 2 ML VIAL ONE (09:28)
[2023-10-19] MEDS ORDERED: DEXAMETHASONE SOD INJ 4 MG/ML VIAL ONE (09:28)
[2023-10-19] MEDS ORDERED: fentaNYL citrate PF 100 MCG/2 ML VIAL ONE ×2 (09:28→11:41)
[2023-10-19] MEDS ORDERED: MIDAZOLAM HCL 1 MG/ML 2ML VIAL ONE (09:28)
[2023-10-19] MEDS ORDERED: PROPOFOL IV EMULSION 10 MG/ML 20 ML VIAL IV ONE (09:28)
[2023-10-19] MEDS ORDERED: LIDOCAINE 2% 2 ML VIAL/AMP(20MG/ML) INFIL ONE (09:28)
--- NOTE | 2023-10-19 09:49 | History & Physical Bridge Note ---
Date of Service October 19, 2023 History & Physical Bridge Note I have examined the patient, reviewed the History & Physical and in the interval since the performance of the History & Physical I have noted the following changes of clinical significance: no changes noted
[2023-10-19] MEDS ORDERED: PHENAZOPYRIDINE HCL 200 MG TAB PO PRN (10:07)
[2023-10-19] MEDS ORDERED: ONDANSETRON INJ 2 MG/ML 2 ML VIAL IV PRN ×2 (10:07→10:14)
[2023-10-19] MEDS ORDERED: MoRPHine SULFATE 2 MG/ML CARP IV PRN (10:07)
[2023-10-19] MEDS ORDERED: oxyCODONE/ACETAMINOPHEN 5mg/325mg TAB PO PRN (10:07)
[2023-10-19] MEDS ORDERED: fentaNYL citrate PF 100 MCG/2 ML VIAL IV PRN (10:14)
[2023-10-19] MEDS ORDERED: ATROPINE SULFATE 0.1 MG/ML 10ML SYR IV PRN (10:14)
[2023-10-19] MEDS ORDERED: ePHEDrine sulfate 50 MG/ML AMP IV PRN (10:14)
[2023-10-19] MEDS ORDERED: DIATRIZOATE MEGLUMINE 30% 100ML VIAL INSTIL PRN (10:47)
--- NOTE | 2023-10-19 11:52 | Operative Report ---
PG Post Operative Report Pre & Post Diagnosis Operation Date: 10/19/23 11:05 Pre-Op Diagnosis: Bladder Stones Post-Op Diagnosis: Bladder Stones I identified the patient and participated in the time-out.: Yes Procedure Operation Date: 10/19/23 11:05 Actual Procedures p Transurethral Resection of Prostate, Transurethral resection of bladder neck lesion, small, Urethral dilation, Bilateral retrograde pyelograms, and Destruction/Extraction of Bladder Stones(Not Applicable) - Marques Pool DO Surgeon Marques Pool, II, DO Receiving Team Member None Estimated Blood Loss 5 Findings Consistent with Post-Op Diagnosis Large Prostate with obstruction with irregular lesions and fluid collection consistent with prostatic abscess. Two moderate size stone at base of bladder approx 1.0 and 1.1 cm in size. Cystic lesion at 2 o'clock position of bladder neck approx 1.3 cm in size. Mild meatal/distal urethra stricture Mild drainage delay on right likely due to inflammation. No filling defect. Specimens Prostate adenoma. Bladder stones Bladder neck lesion Drains 22Fr [address] Catheter Anesthesia Type General Complications none Disposition Disposition: Recovery Room Indications Patient with obstruction due to prostate enlargement. Risks and benefits discussed at length. Description of Procedure Patient was consented and brought back to the operating room. Patient was placed under anesthesia in the supine position and moved to the dorsal lithotomy position. Patient was prepped and draped in the regular sterile fashion. A time out was completed. A 30degree Cystoscope was placed into the bladder and the entire bladder was examined. A area of narrowing was noted in the meatus and urethra along the distal portion of the pendulous urethra. These were dilated. The UO's were identified as well as the bladder neck, trigone, dome, and the other important landmarks. The prostatic urethra and large lobes/adenoma was assessed and the veru and bladder neck identified and area/size was assessed. 2 bladder stones were found in the base of bladder approximately a centimeter and 1.1 cm in size. Additionally there was a cystic-appearing lesion at the bladder neck at approximately the 2 o'clock position. Within the prostatic urethra there were numerous bulging areas and pockets that appeared to be possible abscess or infection or fluid collections. The most notable one was in the distal prostatic urethra at approximately the 5 o'clock position which she did have a small area of drainage. Large prostatic varicosities were noted throughout. Additionally large areas of inflammation was noted along the posterior wall and base. A 5 Swedish open-ended catheter was placed into the UO bilaterally. Retrograde pyelograms were completed with approximately 5 to 7 cc of contrast. There was some drainage delay on the right side however no major filling defects. Appeared to be likely due to prostate enlargement with inflammation along the base. No major obstruction or irregularity noted on the retrograde pyelograms. Patient does have a known history of CLL and has had lymphadenopathy in the pelvis. Some of the drainage issues may be due to fibrosis or compression from the pelvic lymph nodes. Attention was then taken to the bladder stones. The stones were destroyed and extracted. These were sent for analysis. The resection scope was placed and the fine bipolar loop was selected. The lesion at the bladder neck at the 2 o'clock position was resected and sent for analysis. A area of approximately 1.3 cm were resected and the base of the lesion was fulgurated. No major irregularities otherwise seen throughout the bladder. The numerous areas of inflammation and irritation on the back wall did have some mild areas of bleeding. The resection loop was then used to fulgurate these lesions and control bleeding along the posterior wall and base. No additional stones lesions masses or other areas concern were noted within the bladder. Attention was then taken to the prostate. Due to the pockets of presumed abscess as well as the swollen and edematous appearance of the prostate it was decided to resect the portion and clear channel in order to drain any potential infection or fluid. Starting at the 5 and 7 o'clock positions, a channel was created from bladder n jack to the veru. At approximately the 5 o'clock position in the distal prostatic urethra there was a pocket of purulent appearing fluid. This was able to be drained and washed out. The lateral lobes were then resected starting at the 1 and 11 o'clock position down to the channel. Resection was used to debulk. Along the left lateral wall resection was taken down to capsule fibers in order to completely clear out the pockets of fluid that were found in the prostatic tissue. Additional small pockets of possibly purulent fluid were discovered without significant inflammation or signs of necrosis or major abnormality. The Specimen was removed and sent for analysis. The resection bed and any bleeding areas were fulgurated/cauterized and the entire area inspected. All bleeding was controlled. The bladder was inspected a final time. The bladder was emptied and irrigated. All specimen and debris was removed. The scope was removed with the bladder partially full. A catheter was placed and balloon elevated. This was easily irrigated. The patient was cleaned, aroused from anesthesia, and transferred to the pacu in stable condition having tolerated the procedure well with no complications. I was present and participated in all aspects of the procedure. The patient will be monitored in the PACU until transferred. Will plan to observe patient overnight. Will maintain catheter for approximately 2 weeks with plans for removal in the office. Will discuss pathology at follow-up. I attest to the content of the Intraoperative Record and any orders documented therein. Any exceptions are noted below.
--- NOTE | 2023-10-19 12:20 | Fluoroscopy Report ---
FL retrograde includes kub CLINICAL HISTORY: Bilateral retrograde pyelogram. COMPARISON STUDY: Abdomen and pelvis CT 09/13/2023. FLUOROSCOPY TIME: 19 seconds FLUOROSCOPY IMAGES: 4 Ka,r: 3.7 mGy FINDINGS: Retrograde opacification of bilateral renal collecting systems was performed. IMPRESSION: Fluoroscopic assistance as above. ACT 112: Negative or not required by law. Electronically signed by: Rajesh Randolph M.D. 10/19/2023 12:19 PM
[2023-10-19] MEDS: CEFEPIME 1,000 MG in SYRINGE 0 ML IV SCH (12:28)
[2023-10-19] MEDS: SODIUM CHLORIDE 0.9% 1,000 ML IV SCH (12:37)
[2023-10-19 13:08] LABS: Albumin Globulin Ratio 1.2 (0.9-2); Albumin Level 3.8 gm/dl (3.4-5.0); BUN Creatinine Ratio 14.8 (10-20); Bilirubin,Total 0.5 mg/dl (0.2-1.0); Calcium 9.8 mg/dl (8.6-10.3); Creatinine Clr Calc Pharmacy 27.3 ml/min; Est GFR (African American) 43.9 ml/min; Est GFR (Non-African American) 37.9 ml/min; Globulin 3.2 gm/dl (2.5-4.0); Potassium 4.2 mmol/L (3.5-5.1)
--- NOTE | 2023-10-19 13:19 | Anesthesiology Progress Note ---
Date of Service October 19, 2023 Anesthesia Post Procedure Vital Signs Vital Signs: Temp Pulse Pulse Resp BP BP Pulse Ox 10/19/23 13:05 58 L 12 171/81 H 94 10/19/23 13:00 60 19 169/84 H 94 10/19/23 12:50 97.2 F L 59 L 16 165/89 H 92 10/19/23 12:40 59 L 16 148/90 H 92 10/19/23 12:30 57 L 18 178/78 H 93 10/19/23 12:20 62 19 181/83 H 88 L 10/19/23 12:10 60 16 176/87 H 94 10/19/23 12:00 72 16 187/95 H 96 10/19/23 11:54 97.0 F L 69 15 197/97 H 94 10/19/23 09:58 97.9 F 62 20 185/90 H 98 O2 Del Method O2 Flow Rate 10/19/23 13:05 Nasal Cannula 2 10/19/23 13:00 Nasal Cannula 2 10/19/23 12:50 Nasal Cannula 2 10/19/23 12:40 Nasal Cannula 2 10/19/23 12:30 Nasal Cannula 2 10/19/23 12:20 Room Air 10/19/23 12:10 Room Air 10/19/23 12:00 Oxymask 6 10/19/23 11:54 Oxymask 6 10/19/23 09:58 Room Air Transfer of Care Handoff Completed per policy Notes Mental Status: alert / awake / arousable and participated in evaluation Patient Amnestic to Procedure: Yes Nausea / Vomiting: adequately controlled Pain: adequately controlled Airway Patency, RR, SpO2: stable & adequate BP & HR: stable & adequate Hydration State: stable & adequate Anesthetic Complications: no major complications apparent and Pt Satisfied with anesthetic care
[2023-10-19 13:26] LABS: Hematocrit (blood only) 39.9 % (42.0-52.0); Hemoglobin 12.6 g/dl (14.0-18.0); Mean Corpuscular Hemoglobin 29.5 pg (25.0-34.0); Mean Corpuscular Hgb Conc 31.6 g/dL (32.0-36.0); Mean Corpuscular Volume 93.4 fL (80.0-100.0); Mean Platelet Volume 10.9 fL (9.4-12.4); Platelet Count 82 K/uL (130-400); RDW Coefficient of Variation 15.3 % (11.5-14.5); RDW Standard Deviation 51.3 fL (36.4-46.3); Red Blood Count 4.27 M/uL (4.70-6.10); White Blood Count 68.39 K/ul (4.8-10.8)
[2023-10-19 13:50] LABS: Basophils # (auto) 0.15 K/uL (0.00-0.20); Basophils % (auto) 0.2 %; Eosinophils # (auto) 0.29 K/uL (0.00-0.50); Eosinophils % (auto) 0.4 %; Immature Granulocytes # (auto) 0.13 K/uL (0.01-0.20); Immature Granulocytes % (auto) 0.2 %; Lymphocytes # (auto) 61.55 K/uL (1.20-3.40); Monocytes # (auto) 0.63 K/uL (0.11-0.59); Monocytes % (auto) 0.9 %; Neutrophils # (auto) 5.64 K/uL (1.40-6.50); Neutrophils % (auto) 8.3 %; Polychromasia 1+; Smudge Cells Present
--- NOTE | 2023-10-19 17:35 | Hospitalist Progress Note ---
Date of Service October 19, 2023 Assessment & Plan (1) Bladder stones: Plan: Postop, appreciate urology management. (2) COPD (chronic obstructive pulmonary disease): Plan: Asymptomatic. Follow clinically. (3) CVA (cerebral vascular accident): Plan: Appears to be chronically anticoagulated due to what was deemed a prior card ioembolic strokeresume apixaban once okay with primary service (4) CAD (coronary artery disease): Plan: continue home meds. Asymptomatic (5) Cardiomyopathy: Plan: same as above, continue home meds, asymptomatic appears to have concomitant CKD 3 (probably 3B)overall appears to be stable Admission and Anticipated Discharge Date Admission Date: October 19, 2023 Subjective feeling okay. Just feels, like he has to pee. No chest pain or shortness of breath. Preop cardiology consult reviewed. Op notes reviewed. Review of Systems Review of Systems: All systems reviewed & are unremarkable except as noted in HPI & below Physical Exam Physical Exam: General he is awake and alert pleasant no distress. HEENT normocephalic atraumatic mucous membranes moist. Lungs clear to auscultation bilaterally no rales rhonchi or wheeze with good effort. Cardio is distant but regular without rubs murmurs or gallops. Bob in place draining red urine. Results & Data Results & Data Vital Signs (Past 12 Hours) Vital Signs Temp Pulse Pulse Pulse Resp BP BP 10/19/23 17:00 98.1 F 72 18 138/75 10/19/23 16:00 68 10/19/23 15:00 98.6 F 70 18 174/72 H 10/19/23 15:00 65 18 145/66 H 10/19/23 14:30 63 18 153/72 H 10/19/23 14:00 97.5 F L 62 18 147/79 H 10/19/23 13:45 62 19 168/79 H 10/19/23 13:30 62 19 153/75 H 10/19/23 13:15 62 19 172/85 H 10/19/23 13:05 58 L 12 171/81 H 10/19/23 13:00 60 19 169/84 H 10/19/23 12:50 97.2 F L 59 L 16 165/89 H 10/19/23 12:40 59 L 16 148/90 H 10/19/23 12:30 57 L 18 178/78 H 10/19/23 12:20 62 19 181/83 H 10/19/23 12:10 60 16 176/87 H 10/19/23 12:00 72 16 187/95 H 10/19/23 11:54 97.0 F L 69 15 197/97 H 10/19/23 09:58 97.9 F 62 20 185/90 H Pulse Ox O2 Del Method O2 Flow Rate 10/19/23 17:00 93 Room Air 2 10/19/23 16:00 10/19/23 15:00 96 Nasal Cannula 2 10/19/23 15:00 98 Room Air 2 10/19/23 14:30 97 Room Air 2 10/19/23 14:00 96 Room Air 2 10/19/23 13:45 94 Room Air 2 10/19/23 13:30 94 Room Air 2 10/19/23 13:15 93 Nasal Cannula 2 10/19/23 13:05 94 Nasal Cannula 2 10/19/23 13:00 94 Nasal Cannula 2 10/19/23 12:50 92 Nasal Cannula 2 10/19/23 12:40 92 Nasal Cannula 2 10/19/23 12:30 93 Nasal Cannula 2 10/19/23 12:20 88 L Room Air 10/19/23 12:10 94 Room Air 10/19/23 12:00 96 Oxymask 6 10/19/23 11:54 94 Oxymask 6 10/19/23 09:58 98 Room Air PG Care Time/CCT Total # of Minutes Spent Total Time Spent with Patient: Total time spent is greater than 50% in coordination of care (as documented) at patient's floor/unit and/or counseling patient: Coding Level of Care Code 79964 SUB INP/OBS CARE 2/35MIN Diagnoses Bladder stones N21.0 COPD (chronic obstructive pulmonary disease) J44.9 CVA (cerebral vascular accident) I63.9 CVA mechanism: unspecified CAD (coronary artery disease) I25.10 Cardiomyopathy I42.9 (3) CVA (cerebral vascular accident) CVA mechanism: unspecified Qualified Code(s): I63.9 - Cerebral infarction, unspecified
[2023-10-19] MEDS ORDERED: DOCUSATE SODIUM 100 MG CAP PO PRN (17:38)
[2023-10-19] MEDS: carvediloL 3.125 MG TAB PO SCH (21:12)
[2023-10-19] MEDS: TAMSULOSIN HCL 0.4 MG CAP PO SCH (21:14)
[2023-10-19] MEDS: ACETAMINOPHEN 325 MG TAB PO SCH (21:14)
[2023-10-20] MEDS: CEFEPIME 1,000 MG in SYRINGE 0 ML IV SCH ×3 (00:58→23:50)
[2023-10-20] MEDS: SODIUM CHLORIDE 0.9% 1,000 ML IV SCH ×2 (03:58→19:27)
[2023-10-20] MEDS: FINASTERIDE 5 MG TAB PO SCH (08:08)
[2023-10-20] MEDS: ACETAMINOPHEN 325 MG TAB PO SCH ×2 (08:09→20:44)
[2023-10-20] MEDS: carvediloL 3.125 MG TAB PO SCH ×2 (08:09→18:33)
[2023-10-20] MEDS: ATORVASTATIN 40 MG TAB PO SCH (08:09)
[2023-10-20] MEDS: CHOLECALCIFEROL 1,000 UNITS 25 MCG TAB PO SCH (08:09)
[2023-10-20] MEDS: FAMOTIDINE 40 MG TABLET PO SCH (08:10)
[2023-10-20] MEDS: FLUTICASONE PROPIONATE NA SPR 16 GM BTL NAE SCH (08:10)
--- NOTE | 2023-10-20 09:13 | Urology Progress Note ---
Date of Service October 20, 2023 Assessment & Plan (1) BPH loc w/o ur obs/LUTS: (2) Bladder stones: Plan: - POD #1 status post TURP, resection of bladder neck lesion, urethral dilation, destruction/extraction of bladder stones with Dr. Pool - Subjectively doing well - Afebrile and hemodynamically stable - Labs reviewed and stable - 3 way Bob catheter intact, patent and draining medium to dark araya red urine with CBI on slow - Will keep CBI on slow for now and plan titrate as appropriate - Maintain Bob catheter upon discharge - Hospitalists following - appreciate assistance with medical management - Operative findings included irregular lesions and fluid collection consistent with prostatic abscess - Will continue with IV Cefepime for coverage during admission and discharge with course of PO antibiotics - Will continue to hold Eliquis and plan to resume in 1-2 days if urine has cleared per Dr. Pool - Anticipate discharge with Bob catheter tomorrow presuming urine appropriate and he continues to progress as expected Admission and Anticipated Discharge Date Admission Date: October 19, 2023 Subjective Patient subjectively doing well No issues overnight Denies pain Notes occasional sensation of urgency Bob patent and draining araya with CBI on slow Denies nausea, vomiting, fever or chills Review of Systems Constitutional: as per Subjective / HPI Gastrointestinal: as per Subjective / HPI Physical Exam Constitutional: well developed and well nourished; no acute distress ENMT: Ears: + hearing impairment Respiratory: normal respiratory effort; no respiratory distress and no labored breathing Gastrointestinal (Abdomen): Inspection/Auscultation: abdomen normal to inspection Musculoskeletal: Head/Neck/Chest: normocephalic Neurologic: moves all extremities and awake Psychiatric: Orientation: alert and oriented x 3 Results & Data Vital Signs (Past 12 Hours) Vital Signs Temp Pulse Pulse Resp BP Pulse Ox O2 Del Method 10/20/23 07:46 36.8 C 54 L 20 160/72 H 95 Nasal Cannula 10/20/23 05:57 Nasal Cannula 10/20/23 04:42 36.4 C L 57 L 16 150/79 H 96 Nasal Cannula 10/19/23 21:59 36.4 C L 82 18 146/46 H 96 Nasal Cannula 10/19/23 21:57 83 O2 Flow Rate 10/20/23 07:46 2 10/20/23 05:57 2 10/20/23 04:42 2 10/19/23 21:59 2 10/19/23 21:57 PG Care Time/CCT Total # of Minutes Spent Total Time Spent with Patient: Total time spent is greater than 50% in coordination of care (as documented) at patient's floor/unit and/or counseling patient: Coding Level of Care Code None Diagnoses 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 Bladder stones N21.0
[2023-10-20 09:27] LABS: Hematocrit (blood only) 40.2 % (42.0-52.0); Hemoglobin 12.8 g/dl (14.0-18.0); Mean Corpuscular Hemoglobin 29.6 pg (25.0-34.0); Mean Corpuscular Hgb Conc 31.8 g/dL (32.0-36.0); Mean Corpuscular Volume 92.8 fL (80.0-100.0); Mean Platelet Volume 10.8 fL (9.4-12.4); Platelet Count 76 K/uL (130-400); RDW Coefficient of Variation 15.2 % (11.5-14.5); RDW Standard Deviation 51.4 fL (36.4-46.3); Red Blood Count 4.33 M/uL (4.70-6.10); White Blood Count 74.27 K/ul (4.8-10.8)
[2023-10-20 09:41] LABS: Calcium 9.4 mg/dl (8.6-10.3); Est GFR (African American) 45.9 ml/min; Est GFR (Non-African American) 39.6 ml/min; Potassium 4.3 mmol/L (3.5-5.1)
--- NOTE | 2023-10-20 10:06 | Hospitalist Progress Note ---
Date of Service October 20, 2023 Assessment & Plan (1) Bladder stones: Plan: Postoperative management per urology -Antibiotics per urology -Eliquis resumption date per urology (2) COPD (chronic obstructive pulmonary disease): Plan: -Asymptomatic, not in exacerbation -Follow clinically -Stable respiratory status on 2L NC, wean to RA (3) CVA (cerebral vascular accident): Plan: -Appears to be chronically anticoagulated from prior suspected cardioembolic stroke -Hgb stable -Resume once urine has clearedPer urology this appears to be another 1-2 days, would want an active decision made on hold versus resume by Monday (10/23) just to ensure that an active decision is not missed in transitions of care. 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 Certainly happy to help if we can be of further assistancedo not hesitate to reach out. Admission and Anticipated Discharge Date Admission Date: October 19, 2023 Supervising Physician Co-Signing Physician Notes I personally examined the patient and verified all redmond points of history and exam, discussed case, and agree with decision making with Dr Joshi feeling okay overall. Only complaint is that of heightened sensation of irritation on the skin on his legpredominantly right, although it seems like it may be a bit bilateral. He notes this has happened before as well. He has no skin changes it seems to not follow any particular nerve root. Otherwise he has no chest pain or shortness of breath, generally feels well. Vitals noted, in general he is awake and alert pleasant no distress. HEENT normocephalic atraumatic mucous membranes moist. Breathing unlabored no accessory muscle use good effort. Skin shows venous stasis changes bilaterally but no lesions, no real edema at this time either. Bob draining red urine. Skin irritationI suspect it is probably skin changes from venous stasis that are causing the irritationparticularly given that his initial recollection of when it bothers him is mostly been when he has been in the hospital (given the less mobility and often IV fluidsalso a good time for venous stasis to be more bothersome)certainly not seeing anything worrisomediscussed desensitization with a moisturizing cream ideally 5 times a day (not really for the cream to affect the skin, as much is just the rubbing to desensitize the nerves). Cardioembolic strokecurrently off of his apixaban due to hematuria from the procedure. Urology notes that he will likely be able to be resumed on his apixaban in 1-2 days, which certainly would be reasonable in terms of risk/benefit. Given that he will likely be discharged later today or tomorrow, and obviously his urine is not yet clear enough to resume the apixaban, I would simply want to ensure that someone on his team makes an active decision on starting versus continuing to hold his apixaban by Monday (10/23) so that it does not "slip through the cracks" otherwise he appears quite stable hospitalist team will sign off at this time. Happy to be of further assistance if any other help as needed. Medically does appear stable for discharge. Subjective Acute events overnight- none. Pt examined at bedside. Denies any acute complaints, only mild soreness of lower abdomen/suprapubic area. No urinary complaints. Bob noted to be draining red urine. Review of Systems Review of Systems: Per HPI/Subjective Physical Exam Constitutional: well developed and well nourished; no acute distress ENMT: Ears: + hearing impairment Respiratory: normal respiratory effort; no respiratory distress and no labored breathing Gastrointestinal (Abdomen): Inspection/Auscultation: abdomen normal to inspection Mild suprapubic tenderness Musculoskeletal: Head/Neck/Chest: normocephalic Neurologic: moves all extremities and awake Psychiatric: Orientation: alert and oriented x 3 Results & Data Results & Data Vital Signs (Past 12 Hours) Vital Signs Temp Pulse Resp BP Pulse Ox O2 Del Method O2 Flow Rate 10/20/23 07:46 36.8 C 54 L 20 160/72 H 95 Nasal Cannula 2 10/20/23 05:57 Nasal Cannula 2 10/20/23 04:42 36.4 C L 57 L 16 150/79 H 96 Nasal Cannula 2 Resident Activity Tracking Resident Involvement: Resident Care Provided Care Provided: Adult Hospital Medicine (3) CVA (cerebral vascular accident) CVA mechanism: unspecified Qualified Code(s): I63.9 - Cerebral infarction, unspecified
[2023-10-20 10:23] LABS: Basophils % (auto) 0.1 %; Eosinophils # (auto) 0.06 K/uL (0.00-0.50); Eosinophils % (auto) 0.1 %; Immature Granulocytes # (auto) 0.19 K/uL (0.01-0.20); Immature Granulocytes % (auto) 0.3 %; Lymphocytes # (auto) 65.43 K/uL (1.20-3.40); Lymphocytes % (auto) 88.1 %; Monocytes # (auto) 1.07 K/uL (0.11-0.59); Monocytes % (auto) 1.4 %; Neutrophils # (auto) 7.42 K/uL (1.40-6.50); Smudge Cells Present
--- NOTE | 2023-10-20 16:18 | Billing Data ---
Date of Service October 20, 2023 Coding Level of Care Code 10487 SUB INP/OBS CARE
[2023-10-20] MEDS: oxyBUTYnin chloride 5 MG TAB PO PRN (18:33)
[2023-10-20] MEDS: TAMSULOSIN HCL 0.4 MG CAP PO SCH (20:45)
[2023-10-21] MEDS: ACETAMINOPHEN 325 MG TAB PO PRN ×2 (04:22→12:32)
[2023-10-21] MEDS: ATORVASTATIN 40 MG TAB PO SCH (08:06)
[2023-10-21] MEDS: FAMOTIDINE 40 MG TABLET PO SCH (08:06)
[2023-10-21] MEDS: ACETAMINOPHEN 325 MG TAB PO SCH (08:06)
[2023-10-21] MEDS: CHOLECALCIFEROL 1,000 UNITS 25 MCG TAB PO SCH (08:06)
[2023-10-21] MEDS: FINASTERIDE 5 MG TAB PO SCH (08:06)
[2023-10-21] MEDS: FLUTICASONE PROPIONATE NA SPR 16 GM BTL NAE SCH (08:07)
[2023-10-21] MEDS: carvediloL 3.125 MG TAB PO SCH ×2 (08:07→16:41)
--- NOTE | 2023-10-21 10:45 | Urology Progress Note ---
Date of Service October 21, 2023 Assessment & Plan (1) Bladder stones: (2) BPH loc w/o ur obs/LUTS: Plan Status post TURP, laser litholapaxy Recovery on pace CBI off Discharge home with catheter in place, outpatient follow-up Admission and Anticipated Discharge Date Admission Date: October 19, 2023 Subjective Some penile pain and bladder spasms overnight, however seems to be improved from yesterday He would like to go home When I arrived in his room his CBI has dryfunctionally clamped, the urine in the tubing was still clear I think it is very reasonable to turn off CBI and send him home with his catheter today I discussed that he will continue to have bladder spasms and likely some leakage around the catheter as well as hematuria intermittentlyhe is very understanding Physical Exam Physical Exam: Urine relatively clear with CBI clamped Results & Data Vital Signs (Past 12 Hours) Vital Signs Temp Pulse Pulse Pulse Resp BP Pulse Ox 10/21/23 08:06 36.6 C 60 18 198/51 H 95 10/21/23 07:50 41 L 10/21/23 04:00 36.6 C 59 L 18 165/71 H 95 10/21/23 00:00 36.6 C 61 18 139/82 96 10/20/23 23:28 47 L O2 Del Method O2 Flow Rate 10/21/23 08:06 Room Air 10/21/23 07:50 10/21/23 04:00 Nasal Cannula 2 10/21/23 00:00 Nasal Cannula 2 10/20/23 23:28 PG Care Time/CCT Total # of Minutes Spent Total Time Spent with Patient: Total time spent is greater than 50% in coordination of care (as documented) at patient's floor/unit and/or counseling patient: Coding Level of Care Code None Diagnoses Bladder stones N21.0 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
[2023-10-21] MEDS: CEFEPIME 1,000 MG in SYRINGE 0 ML IV SCH (12:31)
--- NOTE | 2023-10-21 13:34 | Hospitalist Progress Note ---
Date of Service October 21, 2023 Assessment & Plan (1) Bladder stones: Plan: Postoperative management per urology -Antibiotics per urology -Eliquis resumption date with urology guidance (based on urine clearing - but while can't resume yet today due to hematuria, will want ongoing active decision making to ensure resuming anticoagulation doesn't "slip through the cracks" (2) COPD (chronic obstructive pulmonary disease): Plan: -Asymptomatic, not in exacerbation -Follow clinically -Stable respiratory status on 2L NC, wean to RA (3) CVA (cerebral vascular accident): Plan: -Appears to be chronically anticoagulated from prior suspected cardioembolic stroke -Hgb stable -Resume once urine has cleared, would want an active decision made on hold versus resume by Monday (10/23) just to ensure that an active decision is not missed in transitions of care. (4) CAD (coronary artery disease): Plan: -Asymptomatic -Continue home medications (5) Cardiomyopathy: Plan: -Asymptomatic- but did have a rather long run of ectopy (was c/w his other PVCs in morphology and was not tachycardic - ie did not appear to be Vtach) - considered raising beta juan but baseline rates are too low to do so safely. K 4.3. discussed outpt monitoring with pt but he declines at this time (essentially his sentiment for this is "i'm almost 89, and if a rhythm were to take me that would be OK") - caregiver did wonder if this sentiment was out of acute frustration with estes issues. while i doubt this is the case (his thought process and response seemed fairly well thought out rather than expressing frustration) i did pass along the situation to his cardiology team so that if his situation were to change/if he were to change his mind on what he would/wouldn't want done, then they will have awareness of current situation. 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- renal function stable at present Plan MERRITTI: Per urology Code status: Full DVT prophylaxis: Resume apixaban per urology Unit: Medical/surgical with telemetry Disposition planning: Discharge per urology primary Admission and Anticipated Discharge Date Admission Date: October 19, 2023 Subjective re-involved in care due to pt/nursing concerns estes leaking, ongoing fairly uncontrolled bladder pain also had 29 beat run of PVC - was totally asymptomatic at the time caregiver worried about him being back at [facility] level of care with current estes leaking/bladder pain Review of Systems Review of Systems: All systems reviewed & are unremarkable except as noted in HPI & below Physical Exam Physical Exam: gen aao frustrated but doesn't appear in physical distress, heent nc at mmm b reathing unlabored no accessory muscles good effort skin no rashes no pallor or icterus neuro no focal deficits estes draining light red/clear red urine Results & Data Results & Data Vital Signs (Past 12 Hours) Vital Signs Temp Pulse Pulse Pulse Resp BP Pulse Ox 10/21/23 12:11 97.9 F 58 L 18 167/69 H 95 10/21/23 11:38 97.9 F 59 L 60 18 198/51 H 95 10/21/23 08:06 97.9 F 60 18 198/51 H 95 10/21/23 07:50 41 L 10/21/23 04:00 97.9 F 59 L 18 165/71 H 95 O2 Del Method O2 Flow Rate 10/21/23 12:11 Room Air 10/21/23 11:38 10/21/23 08:06 Room Air 10/21/23 07:50 10/21/23 04:00 Nasal Cannula 2 PG Care Time/CCT Total # of Minutes Spent Total Time Spent with Patient: Total time spent is greater than 50% in coordination of care (as documented) at patient's floor/unit and/or counseling patient: Coding Level of Care Code 80875 SUB INP/OBS CARE 3/50MIN Diagnoses Bladder stones N21.0 COPD (chronic obstructive pulmonary disease) J44.9 CVA (cerebral vascular accident) I63.9 CVA mechanism: unspecified CAD (coronary artery disease) I25.10 Cardiomyopathy I42.9 (3) CVA (cerebral vascular accident) CVA mechanism: unspecified Qualified Code(s): I63.9 - Cerebral infarction, unspecified
[2023-10-21] MEDS: oxyBUTYnin chloride 5 MG TAB PO PRN (13:57)
--- NOTE | 2023-10-24 15:32 | Discharge Summary ---
Date of Service October 24, 2023 Admission HPI Per Admitting Provider Patient presents for cystoscopy with possible cystolitholapaxy, dilation, resection, and evaluation. Risk and benefits reviewed for procedure. Admission Exam Per Admitting Provider General: Alert in no acute distress. HEENT: Inspection normal Psychologic: Normal affect. Respiratory: Nonlabored. No use of accessory muscles. Skin: [place] and Dry. No rashes or visible lesions. Principal Diagnosis Bladder stones Discharge Exam Constitutional well developed and well nourished; no acute distress ENMT Ears: + hearing impairment Respiratory normal respiratory effort; no respiratory distress and no labored breathing Gastrointestinal (Abdomen) Inspection/Auscultation: abdomen normal to inspection Musculoskeletal Head/Neck/Chest: normocephalic Neurologic moves all extremities and awake Psychiatric Orientation: alert and oriented x 3 Discharge Data Allergies Allergy/AdvReac Type Severity Reaction Status Date / Time KVNG Inhibitors AdvReac Mild Cough Verified 10/23/23 19:46 codeine AdvReac Mild Nausea Verified 10/23/23 19:46 Consultations 10/19/23 10:09 Consult Hospitalist Routine Procedures Performed Operation Date: 10/19/23 11:05 Actual Procedures p , Urethral dilation, Bilateral Retrograde Pyelograms, and Destruction/Extraction of Bladder Stones(Not Applicable) - DO meet [place] Transurethral Resection of Bladder Neck Lesion( Small)(Not Applicable) - DO meet [place] Transurethral Resection of Prostate,(Not Applicable) - Marques Pool DO Ordered Studies 10/19/23 [place] retrograde includes kub Routine Hospital Course (1) Bladder stones: (2) BPH loc w/o ur obs/LUTS: Plan Status post TURP, laser litholapaxy Recovery on pace CBI off Discharge home with catheter in place, outpatient follow-up Total Time Total Time Spent Total Time Spent (In Minutes): 20 Discharge Plan Discharge Items Patient Disposition: Home - Self-Care Reason For Visit: URINARY RETENTION Discharge Diagnosis: Same Activity: Resume your previous activity Lifting: No more than 50 pounds Bathing Comment: Okay to shower with catheter, no tub bath or soaking Sexual Activity: Wait until after follow-up appointment Exercise/Sports: Wait until after follow-up appointment Non-emergency contact: Surgeon and Urologist Call non-emergency contact if: you have any medication questions, your pain is not controlled, your pain is worsening, your pain is unusual for you, your pain is concerning for you, you have a fever and your temperature is above 101.5 Follow-up/Referrals: ProChristopher MD [Primary Care Provider] - [facility],Nurse [FAKE FOR SCHEDULES] - 11/01/23 10:15 am Diet: Regular Ambulatory Orders: SARS CoV2 RNA(COVID-19)[place] (Routine) Timeframe: [id number] Facility: [facility] - Location: Laboratory Main [place] Ordered By: Marques Spring Attending Provider Instructions: Please take all medications as prescribed and keep all follow-ups as scheduled. Please call our office at [phone] with any questions, concerns or need to reschedule appointments for any reason. We are happy to assist you. Take your antibiotic as prescribed. Tips for your recovery at home: Dont be alarmed by brownish or reddish blood or clots in your urine. This is a result of the procedure. This may occur off and on for weeks to months after the procedure but should continue to improve. Drink plenty of fluids during the day (enough to keep your urine very light colored). This will help keep a healthy flow of urine. Do not lift >25 lbs until your followup Avoid constipation. Please use a stool softener (Colace) for the first two weeks after your procedure Be sure to finish the antibiotics as prescribed. If you go home with a catheter, please wash tubing where it enters your body twice daily with mild soap (Dove or Dial). Once your catheter is removed, expect some blood in your urine and some burning when you urinate. You should have an appointment to have this removed, if you do not please call our office to arrange. Pending Studies at Discharge: Yes Stand-Alone Forms: My [facility] Orbiter, Smoking Cessation Medications and DC Order Prescriptions: New ciprofloxacin HCl 250 mg tablet 250 mg PO BID Qty: 14 0RF Continued fluticasone propionate 50 mcg/actuation spray,suspension 2 spray INTRANASAL DAILY Qty: 16 5RF famotidine 40 mg tablet 40 mg PO DAILY Qty: 90 3RF potassium chloride 10 mEq tablet extended release 10 meq PO BID Qty: 60 5RF cholecalciferol (vitamin D3) [Vitamin D3] 50 mcg (2,000 unit) tablet 2,000 unit PO QAM Qty: 90 3RF carvedilol 3.125 mg tablet 3.125 mg PO BID Qty: 60 5RF Rx Instructions: must administer with a meal/food finasteride 5 mg tablet 5 mg PO QAM Qty: 90 3RF tamsulosin 0.4 mg capsule 0.4 mg PO HS Qty: 90 1RF loperamide 2 mg tablet 2 mg PO DAILY PRN (Reason: loose stools) valsartan 80 mg tablet 80 mg PO DAILY Qty: 90 1RF docusate sodium [Colace] 100 mg capsule 100 mg PO DAILY PRN (Reason: Constipation) Systane (PF) 0.4-0.3 % dropperette 1 drp ophthalmic (eye) BID PRN (Reason: Dry Eye(S)) acetaminophen 325 mg tablet 650 mg PO BID (DME) lancets [OneTouch Delica Plus Lancet] 30 gauge misc See Rx Instructions .ROUTE .MEDSUPPLY Qty: 100 0RF Rx Instructions: As directed to check sugar when feeling lightheaded (DME) lancing device with lancets [OneTouch Delica Plus Lanc Dev] Kit See Rx Instructions .ROUTE .MEDSUPPLY Qty: 1 0RF Rx Instructions: As directed to check sugar when feeling lightheaded (DME) blood sugar diagnostic Strip See Rx Instructions .ROUTE .MEDSUPPLY Qty: 100 0RF Rx Instructions: As directed to check sugar when feeling lightheaded acetaminophen 325 mg Tablet 650 mg PO Q4 PRN (Reason: Pain) atorvastatin 40 mg tablet 40 mg PO QAM Held apixaban 2.5 mg tablet 2.5 mg PO BID Qty: 60 5RF Hold Instructions: Resume on 10/22/23. Resume if urine is clear to light pink No Action phenazopyridine 200 mg tablet 200 mg PO TID PRN (Reason: pain) 3 Days Qty: 9 0RF oxybutynin chloride 5 mg tablet 5 mg PO TID PRN (Reason: bladder spasms) Qty: 30 0RF Discharge Orders: Discharge Order (Routine); Ordered 10/21/23 Ordered By: [place] Admission Data Admit Date/Time: 10/19/23 10:07 Attending Provider: Marques Pool Admit Provider: Marques Pool Primary Care Provider: Christopher Kearns Other Providers: Jesús Dominguez; [facility],Home [facility]; Jason Lux Other Interventions: Discharge Summary Assessment (RN) Last Done: 10/21/23 11:38 Coding Level of Care Code 24408 IN/OBS DISCH 30 MIN/LESS Diagnoses Bladder stones N21.0 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
== END 2023-10-21 17:37 | disposition home or self-care (01) ==
LOC: PACUINP 09:22 → ASU 09:22 → 2W 15:37
DX: Z88.5 Allergy status to narcotic agent; N35.919 Unspecified urethral stricture, male, unspecified site; I71.40 Abdominal aortic aneurysm, without rupture, unspecified; Z87.891 Personal history of nicotine dependence; Z88.8 Allergy status to other drugs, medicaments and biological substances; N30.20 Other chronic cystitis without hematuria; C91.10 Chronic lymphocytic leukemia of B-cell type not having achieved remission; N18.9 Chronic kidney disease, unspecified; N21.0 Calculus in bladder

== ENCOUNTER 2024-05-28 10:30 | Observation (INO) ==
[2024-05-28] MEDS: ALBUT/IPRATROP 3MG/0.5MG NEB 3 ML VIAL ONE (10:43)
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
[2024-05-28] MEDS: ALBUT/IPRATROP 3MG/0.5MG NEB 3 ML VIAL NEB STA (10:53)
[2024-05-28 11:17] LABS: INR 1.1 (0.9-1.1); Prothrombin Time 11.9 Seconds (9.0-12.0)
[2024-05-28 11:39] LABS: Albumin Globulin Ratio 1.6 (0.9-2); Albumin Level 4.2 gm/dl (3.4-5.0); BUN Creatinine Ratio 14.9 (10-20); Bilirubin,Total 0.5 mg/dl (0.2-1.0); Calcium 9.9 mg/dl (8.6-10.3); Creatinine Clr Calc Pharmacy 20.5 ml/min; Est GFR (African American) 31.2 ml/min; Est GFR (Non-African American) 26.9 ml/min; Globulin 2.7 gm/dl (2.5-4.0); Potassium 4.4 mmol/L (3.5-5.1); Total Protein 6.9 gm/dl (6.0-8.3)
[2024-05-28 11:43] LABS: Base Excess VBG -3.4 mEq/L; HCO3 VBG 24 mmol/L; Oxygen Saturation VBG < 60.0 %; PCO2 VBG 49 mmHg (38-50); PO2 VBG 24 mmHg; pH VBG 7.29 (7.36-7.41)
[2024-05-28 11:46] LABS: Troponin I High Sensitivity 14.3 pg/ml (0-20)
[2024-05-28 11:49] LABS: Adenovirus PCR Not Detected (NotDetected); Bordetella parapertussis PCR Not Detected (NotDetected); Bordetella pertussis PCR Not Detected (NotDetected); Chlamydia pneumoniae PCR Not Detected (NotDetected); Coronavirus 229E PCR Not Detected (NotDetected); Coronavirus CoV-2 (COVID19)PCR Not Detected (NotDetected); Coronavirus HKU1 PCR Not Detected (NotDetected); Coronavirus NL63 PCR Not Detected (NotDetected); Coronavirus OC43PCR Not Detected (NotDetected); Human Metapneumovirus PCR Not Detected (NotDetected); Influenza A PCR Not Detected (NotDetected); Influenza B PCR Not Detected (NotDetected); Mycoplasma pneumoniae PCR Not Detected (NotDetected); Parainfluenza Virus 1 PCR Not Detected (NotDetected); Parainfluenza Virus 2 PCR Not Detected (NotDetected); Parainfluenza Virus 3 PCR Not Detected (NotDetected); Parainfluenza Virus 4 PCR Not Detected (NotDetected); Respiratory Syncytial VirusPCR Not Detected (NotDetected); Rhinovirus/Enterovirus PCR DETECTED (NotDetected)
--- NOTE | 2024-05-28 12:09 | CT Scan Report ---
CT SCAN OF THE BRAIN WITHOUT IV CONTRAST CLINICAL HISTORY: Change in mental status. COMPARISON STUDY: CT of the brain dated 05/07/2023. CT angiogram of the neck dated 05/10/2023. TECHNIQUE: Unenhanced axial CT scan of the brain is performed from the vertex to the skull base. A do se lowering technique was utilized adhering to the principles of ALARA. The skull base was scanned tw ice due to motion artifact. CT DOSE: 1325.14 mGy.cm FINDINGS: Brain parenchyma: There is age-related involutional change noting moderate to advanced subcortical an d periventricular microangiopathic disease. There is no hemorrhage, mass effect, or evidence of acute territorial ischemia by CT criteria. There is a small chronic left occipital lobe infarct. There are small chronic lacunar infarcts in the caudate heads. Spencer-white matter differentiation is preserved. No extra-axial fluid collection is seen. Ventricles, sulci, cisterns: Prominent secondary to involutional change. Intracranial vasculature: There is atherosclerotic calcification of the cavernous carotid and vertebr al arteries. Calvarium: Unremarkable. Sinuses and mastoids: There is subtotal opacification of the right maxillary antrum. Moderate mucosal thickening is noted in the ethmoid sinuses. Mild mucosal thickening seen in the left maxillary sinus . There are bilateral mastoid effusions. Orbits: The bony orbits are grossly intact. There are bilateral ocular lens implants. Soft tissues: There are numerous bilateral parotid nodules which measure up to 14 mm. These are new f rom 05/10/2023. IMPRESSION: 1. There is no hemorrhage, mass effect, or evidence of acute territorial ischemia by CT criteria. 2. There are numerous bilateral parotid nodules which measure up to 14 mm. These are new from 3, and given the degree of cervical lymphadenopathy on the prior study this likely represent progress gerda intraparotid lymphadenopathy. Correlate with the oncological history. ACT 112: Negative or not required by law. Electronically signed by: Jason Francois M.D. 05/28/2024 12:07 PM
--- NOTE | 2024-05-28 12:10 | XRay Report ---
XR chest 1V portable HISTORY: Dyspnea COMPARISON: Chest CT 05/08/2024. FINDINGS: No pneumothorax. No pleural effusions. A few bibasilar linear densities persist and favor s carring or subsegmental atelectasis. Otherwise, the lungs are clear. No evidence for pulmonary edema. The heart remains enlarged. There is eventration of the right hemidiaphragm. No acute fractures. Tor tuous and ectatic thoracic aorta with an associated stent graft again noted. IMPRESSION: No significant change compared to the prior study. No acute process. ACT 112: Negative or not required by law. Electronically signed by: Rajesh Randolph M.D. 05/28/2024 12:09 PM
[2024-05-28 12:33] LABS: Hematocrit (blood only) 50.2 % (42.0-52.0); Hemoglobin 14.9 g/dl (14.0-18.0); Mean Corpuscular Hemoglobin 29.9 pg (25.0-34.0); Mean Corpuscular Hgb Conc 29.7 g/dL (32.0-36.0); Mean Corpuscular Volume 100.6 fL (80.0-100.0); Mean Platelet Volume 11.5 fL (9.4-12.4); Platelet Count 66 K/uL (130-400); RDW Coefficient of Variation 18.3 % (11.5-14.5); RDW Standard Deviation 57.7 fL (36.4-46.3); Red Blood Count 4.99 M/uL (4.70-6.10); White Blood Count 165.28 K/ul (4.8-10.8)
--- NOTE | 2024-05-28 12:39 | History & Physical Report ---
Date of Service May 28, 2024 Assessment & Plan (1) Allergic reaction caused by a drug: Plan: Possible diagnosis vs side effect from chemotherapy. No urticaria or lip/facial swelling. Currently back to baseline other than fatigued from the Benadryl. No plans on further treatment unless he develops further symptoms Observation overnight on med/tele Benadryl and solu-medrol and dexamethasone given at the cancer [facility] (2) Enterovirus infection: Plan: Symptomatic care Possible cough related to this but otherwise asymptomatic Plan CLL - patient to discuss with oncology as an outpatient regarding ongoing treatment GERD - continue famotidine Neuropathy - continue gabapentin HTN - continue valsartan and coreg Hx CVA - continue Eliquis and atorvastatin VTE prophylaxis - Eliquis Diet - NPO pending SLT consult Disposition - observation to med/tele Admission and Anticipated Discharge Date Admission Date: May 28, 2024 History of Present Illness Chief Complaint: Concern for allergic reaction Primary Care Provider: Christopher Kearns MD Randal Kline is an 88 year old male who presents to the ER with episode of facial flushing, respiratory distress and concern for allergic reaction during his first chemotherapy today. He was given IV steroids, Benadryl and famotidine and sent to the ER. He also noticed some twitching of his leg after receiving Benadryl prior to the chemotherapy. Wheezing in the ER which resolved with duoneb. No history of asthma or COPD or requirement of inhalers but prior imaging has suggested emphysema. His care transitions nurse thinks he only received about 5 minutes of the chemotherapy before reaction started and it was discontinued. Allergies Allergy/AdvReac Type Severity Reaction Status Date / Time KVNG Inhibitors AdvReac Mild Cough Verified 04/03/24 10:48 codeine AdvReac Mild Nausea Verified 04/03/24 10:48 Home Medications Medication Instructions Recorded Confirmed Type docusate sodium 100 mg capsule 100 mg PO DAILY PRN Constipation 07/15/22 05/28/24 History (Colace) peg 400-propylene glycol (PF) 0.4 1 drp ophthalmic (eye) BID PRN Dry 12/09/22 05/28/24 History %-0.3 % eye drops in a dropperette Eye(S) (Systane (PF)) loperamide 2 mg tablet 2 mg PO DAILY PRN loose stools 07/27/23 05/28/24 History blood sugar diagnostic #100 ea 10/09/23 04/03/24 Rx lancets 30 gauge (OneTouch Delica #100 ea 10/09/23 04/03/24 Rx Plus Lancet) lancing device with lancets kit #1 ea 10/09/23 04/03/24 Rx (OneTouch Delica Plus Lancing Device kit) amoxicillin 500 mg capsule See Rx Instructions .Route 11/09/23 05/28/24 History .COMPLEX PRN Other carvedilol 3.125 mg tablet 3.125 mg PO BID #60 tabs 12/12/23 05/28/24 Rx valsartan 40 mg tablet 20 mg (1/2 x 40 mg) PO DAILY #90 01/01/24 05/28/24 Rx tabs food supplemt, lactose-reduced 1 ea PO DAILY #5,688 mL 01/02/24 05/28/24 Rx (Ensure oral liquid) atorvastatin 40 mg tablet 40 mg PO QAM #90 tabs 02/01/24 05/28/24 Rx gabapentin 100 mg capsule 100 mg PO .qhs #90 caps 03/19/24 05/28/24 Rx fluticasone propionate 50 2 spray intranasal BID Allergic 04/03/24 05/28/24 Rx mcg/actuation nasal Symptoms #16 grams spray,suspension apixaban 2.5 mg tablet 2.5 mg PO BID #60 tabs 04/23/24 05/28/24 Rx acetaminophen 325 mg tablet (Pain 650 mg (2 x 325 mg) PO BID pain 05/07/24 05/28/24 Rx Reliever (acetaminophen)) #60 tabs benzonatate 100 mg capsule 100 mg PO TID PRN cough #30 caps 05/07/24 05/28/24 Rx cholecalciferol (vitamin D3) 50 2,000 unit PO QAM #90 tabs 05/14/24 05/28/24 Rx mcg (2,000 unit) tablet (Vitamin D3) diclofenac sodium 1 % topical gel 4 g topical BID #100 grams 05/14/24 05/28/24 Rx (Voltaren Arthritis Pain) carboxymethyl 0.5 %-glycerin 1 1 drp ophthalmic (eye) BID 05/28/24 05/28/24 His tory %-polysorb 80 0.5 %-PF eye dropperette (Refresh Optive Michael-3 (PF)) carboxymethyl 0.5 %-glycerin 1 1 drp ophthalmic (eye) Q8 PRN Dry 05/28/24 05/28/24 History %-polysorb 80 0.5 %-PF eye Eyes dropperette (Refresh Optive Michael-3 (PF)) famotidine 40 mg tablet 40 mg PO DAILY PRN Acid Reflux 05/28/24 05/28/24 History hydrocortisone 2.5 % topical cream 1 applic topical BID PRN skin 05/29/24 Rx irritation #20 grams potassium chloride 10 mEq 10 meq PO BID #60 tabs 05/29/24 Rx tablet,extended release Past Med/Surg History Problem List (Updated 05/28/24 @ 14:06 by Shyam Benites DO) Hypoxia (Acute) Enterovirus infection Allergic reaction caused by a drug PVD (peripheral vascular disease) Declining functional status BPH w urinary obs/LUTS Urinary retention Bladder stones History of Clostridium difficile infection (Acute) COPD (chronic obstructive pulmonary disease) Urethral stricture Atherosclerosis Constipation Gait abnormality Neuropathy BPH loc w/o ur obs/LUTS Left inguinal hernia AAA (abdominal aortic aneurysm) CVA (cerebral vascular accident) (Acute) Mixed conductive and sensorineural hearing loss of right ear with restricted hearing of left ear Arteriosclerosis of carotid artery Gout Right bundle branch block GERD (gastroesophageal reflux disease) Hyperlipidemia Hypertension S/P total right hip arthroplasty History of stroke Initial stroke 2007- felt secondary to carotid disease (s/p left CEA) Possible second CVA shortly after first CVA Per records- CVA 10/23/20 Embolic strokes 05/10/2023 No residual effects CKD (chronic kidney disease) CAD (coronary artery disease) Nonobstructive per cardio records (pt denies cardiac cath per 01/18/22 cardio note) Cardiomyopathy EF 35-40% per 05/2023 ECHO (EF 60-65% on 2020 ECHO) CLL (chronic lymphocytic leukemia) (Acute) Osteoporosis Medical History COVID-19 Carotid artery disease Aortic aneurysm Bifascicular block History of seizure Hearing deficit Hyperlipidemia Hypertension Surgical History History of circumcision S/P left inguinal hernia repair (03/21/22) H/O right inguinal hernia repair (08/03/20) Status post incision and drainage (06/26/20) Status post thoracic aortic aneurysm repair (2017) Hip fracture requiring operative repair History of right hip replacement History of left hip replacement Nausea and vomiting after administration of anesthetic agent Hx of nasal polypectomy History of hernia surgery History of cataract surgery History of tonsillectomy H/O thoracic aortic aneurysm repair History of carotid endarterectomy Family History Brother Colorectal cancer Stroke Family history of diabetes mellitus Father Heart disease Hypertension Stroke Other No family history of adverse response to anesthesia Denies family history of Ovarian cancer Prostate cancer Myocardial infarction Breast cancer Social History Smoking Status: Former smoker Tobacco Type: Cigarettes packs per day: 0.75; Cigarettes Per Day: 12 YEARS AGO; Second Hand Exposure: No; Do You Dip or Chew Tobacco: No; Hx Alcohol Use: No Hx Substance Use: No Preferred Language: Tanzanian Communication Ability: Effective Communication Ability Comment: [place] bilaterally Visual Impairment: No Limitations Hearing Ability: Use of Hearing Aid Resolution Specialist Required: No Beliefs That Will Affect Care: None marital status: / Current Living Situation: [facility] Current Living Situation Comment: resident of [facility] current occupational status: retired How many Children do You have: 0 Feels Safe at Home: Yes Safety Concerns: Feels Safe At This Time Childhood Exposure to Second-Hand Smoke: Yes Dental Care, Regularly: Yes Physical Activity Frequency: 1-2 Times per Week Seatbelt Use: always Sunscreen Use: No Assistive Devices: Denture - Upper, Denture - Lower, Glasses and Hearing Aid - Bilateral Review of Systems Review of Systems: All systems reviewed & are unremarkable except as noted in HPI & below Physical Exam Constitutional: WD/WN, vitals as above Eyes: PERRL, conjunctivae normal, anicteric sclerae ENMT: external ear and nose normal, oropharynx normal Respiratory: normal respiratory effort, lungs clear to auscultation Cardiovascular: RRR, no murmur, no edema Gastrointestinal (Abdomen): normal bowel sounds, soft, nontender, no hepatosplenomegaly Skin: no rashes, warm and dry Neurologic: Cranial Nerves: + abnormal facial strength (right mouth drooping (chronic)) Psychiatric: A+Ox3, euthymic affect Results & Data Results & Data Vital Signs (Past 12 Hours) Vital Signs Temp Pulse Resp BP Pulse Ox O2 Del Method O2 Flow Rate 05/28/24 11:57 93 Nasal Cannula 1 05/28/24 11:55 86 L Room Air 05/28/24 10:43 Room Air 95 05/28/24 10:43 36.5 C 62 26 H 146/80 H 96 Room Air 05/28/24 10:38 95 Room Air Laboratory Results Abnormal lab results 05/28/24 05/28/24 Range/Units 10:47 11:24 VBG pH 7.29 L (7.36-7.41) Chloride 110 H (98-107) mmol/L BUN 32 H (6-23) mg/dl Creatinine 2.15 H (0.6-1.4) mg/dl Glucose 107 H (70-99(Fasting)) mg/dl B-Natriuretic Peptide 185 H (0-100) pg/ml Entero/Rhino (PCR) DETECTED A (NotDetected) Diagnostic Findings CT SCAN OF THE BRAIN WITHOUT IV CONTRAST CLINICAL HISTORY: Change in mental status. COMPARISON STUDY: CT of the brain dated 05/07/2023. CT angiogram of the neck dated 05/10/2023. TECHNIQUE: Unenhanced axial CT scan of the brain is performed from the vertex to the skull base. A dose lowering technique was utilized adhering to the principles of ALARA. The skull base was scanned twice due to motion artifact. CT DOSE: 1325.14 mGy.cm FINDINGS: Brain parenchyma: There is age-related involutional change noting moderate to advanced subcortical and periventricular microangiopathic disease. There is no hemorrhage, mass effect, or evidence of acute territorial ischemia by CT criteria. There is a small chronic left occipital lobe infarct. There are small chronic lacunar infarcts in the caudate heads. Spencer-white matter differentiation is preserved. No extra-axial fluid collection is seen. Ventricles, sulci, cisterns: Prominent secondary to involutional change. Intracranial vasculature: There is atherosclerotic calcification of the cavernous carotid and vertebral arteries. Calvarium: Unremarkable. Sinuses and mastoids: There is subtotal opacification of the right maxillary antrum. Moderate mucosal thickening is noted in the ethmoid sinuses. Mild mucosal thickening seen in the left maxillary sinus. There are bilateral mastoid effusions. Orbits: The bony orbits are grossly intact. There are bilateral ocular lens implants. Soft tissues: There are numerous bilateral parotid nodules which measure up to 14 mm. These are new from 05/10/2023. IMPRESSION: 1. There is no hemorrhage, mass effect, or evidence of acute territorial ischemia by CT criteria. 2. There are numerous bilateral parotid nodules which measure up to 14 mm. These are new from 05/10/2023, and given the degree of cervical lymphadenopathy on the p rior study this likely represent progressive intraparotid lymphadenopathy. Correlate with the oncological history. XR chest 1V portable HISTORY: Dyspnea COMPARISON: Chest CT 05/08/2024. FINDINGS: No pneumothorax. No pleural effusions. A few bibasilar linear densities persist and favor scarring or subsegmental atelectasis. Otherwise, the lungs are clear. No evidence for pulmonary edema. The heart remains enlarged. There is eventration of the right hemidiaphragm. No acute fractures. Tortuous and ectatic thoracic aorta with an associated stent graft again noted. IMPRESSION: No significant change compared to the prior study. No acute process. Medications Administered ER Medications Given: Duoneb 3ml NEB ECG Rate (beats per minute): 62 Rhythm: normal sinus Findings: + 1st degree AV block and + T-wave inversion (Inferior) Comparison ECG Date: from (July 21, 2023) Change: the following changes noted (TWI evident in inferior leads) Code Status & VTE Plan Code Status DNR/DNI VTE Prophylaxis Plan VTE Prophylaxis will be ordered: Yes PG Care Time/CCT Total # of Minutes Spent Total Time Spent with Patient: Total time spent is greater than 50% in coordination of care (as documented) at patient's floor/unit and/or counseling patient: Coding Level of Care Code 83579 INT INP/OBS CARE 2/55MIN Diagnoses Allergic reaction caused by a drug T78.40XA Enterovirus infection B34.1
[2024-05-28 12:47] LABS: Basophils # (auto) 0.29 K/uL (0.00-0.20); Basophils % (auto) 0.2 %; Eosinophils # (auto) 0.06 K/uL (0.00-0.50); Immature Granulocytes # (auto) 0.14 K/uL (0.01-0.20); Immature Granulocytes % (auto) 0.1 %; Monocytes # (auto) 2.72 K/uL (0.11-0.59); Monocytes % (auto) 1.6 %; Neutrophils # (auto) 1.77 K/uL (1.40-6.50); Neutrophils % (auto) 1.1 %; Platelet Estimate Decreased (Normal); Smudge Cells Present
[2024-05-28] MEDS ORDERED: ACETAMINOPHEN 325 MG TAB PO PRN (14:45)
[2024-05-28] MEDS ORDERED: DOCUSATE SODIUM 100 MG CAP PO PRN (19:39)
[2024-05-28] MEDS ORDERED: LOPERAMIDE HCL 2 MG CAP PO PRN (19:39)
[2024-05-28] MEDS ORDERED: ARTIFICIAL TEARS OP PRN (19:39)
[2024-05-28] MEDS: APIXABAN 2.5 MG TAB PO SCH (20:54)
[2024-05-28] MEDS: GABAPENTIN 100 MG CAP PO SCH (20:54)
[2024-05-28] MEDS: FLUTICASONE PROPIONATE NA SPR 16 GM BTL NAE SCH (20:55)
[2024-05-28] MEDS: carvediloL 3.125 MG TAB PO SCH (20:57)
[2024-05-28] MEDS ORDERED: FAMOTIDINE 20 MG TAB PO PRN (23:27)
[2024-05-28] MEDS: ARTIFICIAL TEARS OP SCH (23:39)
[2024-05-29] MEDS ORDERED: FAMOTIDINE 40 MG TABLET PO SCH (09:00)
[2024-05-29] MEDS ORDERED: FINASTERIDE 5 MG TAB PO SCH (09:00)
[2024-05-29] MEDS: ATORVASTATIN 40 MG TAB PO SCH (09:10)
[2024-05-29] MEDS: VALSARTAN 80 MG TAB PO SCH (09:10)
[2024-05-29] MEDS ORDERED: predniSONE 20 MG TAB PO SCH (11:00)
[2024-05-29] MEDS: ALBUT/IPRATROP 3MG/0.5MG NEB 3 ML VIAL NEB SCH (11:29)
[2024-05-29] MEDS: AZITHROMYCIN 250 MG TAB PO SCH (11:39)
--- NOTE | 2024-05-29 13:16 | Hospitalist Progress Note ---
Date of Service May 29, 2024 Assessment & Plan (1) Allergic reaction caused by a drug: Plan: -Possible side effect from chemotherapy. -Patient has returned to baseline upon hospital presentation- patient able to protect airway-no urticaria or lip/facial swelling. -Patient received Benadryl and solu-medrol/dexamethasone given at the cancer [facility] -Monitoring off of therapy at present -Noted respiratory symptoms of cough- more likely related to enterovirus- see below -Oncology to determine adjustment in therapy- has an appointment also for outpatient on 06/04/24- will reach out to oncologist regarding admission (2) Enterovirus infection: Plan: -Patient with cough, congestion -Baseline leukocytosis with CLL- additionally received steroids prior to admission -Given cough has been persistent per patient and behavioral health care coordinator as well as immunocompromised state will cover empirically for superimposed bacterial pneumonia. -Cover empirically on Rocephin and Azithromycin- may likely transition to po in the AM for discharge and close outpatient follow up (3) CLL (chronic lymphocytic leukemia): Plan: -Leukocytosis noted -Started on Chemo- patient had allergic reaction at initiation of therapy -Oncology follow up to determine further treatment plan -Continue to monitor counts closely (4) History of stroke: Plan: -Continue Eliquis -Continue Lipitor (5) Hypertension: Plan: -Continue Valsartan -Continue Coreg (6) GERD (gastroesophageal reflux disease): Plan: -Continue Pepcid Plan VTE prophylaxis - Elisabet Personal behavioral health care coordinator updated bedside Admission and Anticipated Discharge Date Admission Date: May 28, 2024 Subjective Patient seen and evaluated bedside Patient reports improvement in symptoms experienced yesterday during chemotherapy He does have a cough that has been persistent for some time per his personal watch caser bedside He tested positive for Enterovirus in the ER Denies chest pain, palpitations, SOB, fevers, chills nausea or vomiting Review of Systems Review of Systems: As indicated in HPI Physical Exam Physical Exam: General: Patient is awake, alert and oriented, in no acute distress. HEENT--PERRL, mucous membranes and oropharynx mildly dry Heart--normal S1 and S2. No murmurs, rubs or gallops. Lungs--Rhonchi noted at the bases bilaterally, minimal end expiratory wheezes bilateral Abdomen--normal bowel sounds and soft. Extremities--no cyanosis or clubbing. No edema. Dermatologic--normal skin turgor, normal color, no abnormal lymph nodes, no rash. Neurologic--cranial nerves II through XII grossly intact.Coarse tremors Rheumatologic--normal range of motion. Psychiatric--normal affect. Results & Data Results & Data Vital Signs (Past 12 Hours) Vital Signs Temp Pulse Pulse Pulse Resp BP BP 05/29/24 11:49 05/29/24 11:31 64 18 05/29/24 11:19 36.4 C L 66 18 140/66 05/29/24 07:36 36.4 C L 67 18 189/71 H 05/29/24 07:28 53 L 05/29/24 03:37 37.1 C 63 20 137/66 Pulse Ox O2 Del Method 05/29/24 11:49 Room Air 05/29/24 11:31 91 Room Air 05/29/24 11:19 91 Room Air 05/29/24 07:36 93 Room Air 05/29/24 07:28 05/29/24 03:37 93 Room Air PG Care Time/CCT Total # of Minutes Spent Total Time Spent with Patient: Total time spent is greater than 50% in coordination of care (as documented) at patient's floor/unit and/or counseling patient: Coding Level of Care Code 98714 SUB INP/OBS CARE 2/35MIN Diagnoses Allergic reaction caused by a drug T78.40XA Enterovirus infection B34.1 CLL (chronic lymphocytic leukemia) C91.90 History of stroke Z86.73 Essential hypertension I10 Hypertension type: essential hypertension Gastroesophageal reflux disease, esophagitis presence not specified K21.9 Esophagitis presence: esophagitis presence not specified (5) Hypertension Hypertension type: essential hypertension Qualified Code(s): I10 - Essential (primary) hypertension (6) GERD (gastroesophageal reflux disease) Esophagitis presence: esophagitis presence not specified Qualified Code(s): K21.9 - Gastro-esophageal reflux disease without esophagitis
[2024-05-29] MEDS: cefTRIAXone SODIUM 1,000 MG/50 ML BAG IV SCH (13:28)
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
[2024-05-29] MEDS: BENZONATATE 100 MG CAPSULE PO PRN (22:12)
[2024-05-30 01:39] VITALS: RESP 18
--- NOTE | 2024-05-30 06:37 | Electrocardiogram Report ---
Test Reason : Blood Pressure : */* mmHG Vent. Rate : 62 BPM Atrial Rate : 62 BPM P-R Int : 220 ms QRS Dur : 136 ms QT Int : 442 ms P-R-T Axes : 24 -34 -13 degrees QTcB Int : 448 ms Sinus rhythm with 1st degree A-V block Left axis deviation Right bundle branch block Inferior infarct (cited on or before 21-Jul-2023) Abnormal ECG When compared with ECG of 21-Jul-2023 15:44, T wave inversion now evident in Inferior leads Confirmed by Qamar Curry ([id number]) on 05/30/2024 6:36:31 AM Referred By: Confirmed By: Qamar Curry
[2024-05-30 07:50] LABS: Calcium 9.2 mg/dl (8.6-10.3); Creatinine Clr Calc Pharmacy 19.9 ml/min; Est GFR (Non-African American) 25.9 ml/min; Potassium 4.2 mmol/L (3.5-5.1)
[2024-05-30 07:54] LABS: Hemoglobin 11.2 g/dl (14.0-18.0); Mean Corpuscular Hemoglobin 29.5 pg (25.0-34.0); Mean Corpuscular Hgb Conc 29.5 g/dL (32.0-36.0); Mean Platelet Volume 11.3 fL (9.4-12.4); Platelet Count 56 K/uL (130-400); RDW Coefficient of Variation 17.2 % (11.5-14.5); RDW Standard Deviation 57.2 fL (36.4-46.3); White Blood Count 153.88 K/ul (4.8-10.8)
[2024-05-30 08:08] LABS: Basophils # (auto) 0.05 K/uL (0.00-0.20); Eosinophils # (auto) 0.13 K/uL (0.00-0.50); Eosinophils % (auto) 0.1 %; Immature Granulocytes # (auto) 0.36 K/uL (0.01-0.20); Immature Granulocytes % (auto) 0.2 %; Lymphocytes # (auto) 144.23 K/uL (1.20-3.40); Lymphocytes % (auto) 93.7 %; Monocytes # (auto) 1.74 K/uL (0.11-0.59); Monocytes % (auto) 1.1 %; Neutrophils # (auto) 7.37 K/uL (1.40-6.50); Neutrophils % (auto) 4.9 %; Smudge Cells Present
[2024-05-30 11:30] VITALS: TEMP 97.9
[2024-05-30 13:15] VITALS: O2SAT 96
--- NOTE | 2024-05-30 13:29 | Discharge Summary ---
Discharge Summary Date of Service May 30, 2024 Principal Dx & Hospital Course #1 = Principal Diagnosis (1) Allergic reaction caused by a drug: -Possible side effect from chemotherapy. -Patient has returned to baseline upon hospital presentation- patient able to protect airway-no urticaria or lip/facial swelling. -Patient received Benadryl and solu-medrol/dexamethasone given at the [facility] -Monitoring off of therapy at present and no further symptoms-no steroids needed -Noted respiratory symptoms of cough- more likely related to enterovirus- see below -Oncology to determine adjustment in therapy- has an appointment also for outpat ient on 06/04/24- appreciate Oncology consult (2) Enterovirus infection: -Patient with cough, congestion, now improved with steroids and albuterol nebs -Baseline leukocytosis with CLL- additionally received steroids prior to admission -Given cough has been persistent per patient and nurse wound care as well as immunocompromised state will cover empirically for superimposed bacterial pneumonia.He received ceftriaxone and azithro but will just finish out 5 day course of azithro on discharge given h/o smoking (3) CLL (chronic lymphocytic leukemia): -significant Leukocytosis noted -Started on Chemo- patient had allergic reaction at initiation of therapy -Oncology follow up to determine further treatment plan -Continue to monitor counts closely as an outpt-with pancytopenia from CLL (4) History of stroke: -Continue Eliquis but no mention of Afib in history-may be empiric or for PAD given h/o ALTAGRACIA and carotid endarerectomy -Continue Lipitor (5) Hypertension: -Continue Valsartan -Continue Coreg (6) GERD (gastroesophageal reflux disease): -Continue Pepcid Plan VTE prophylaxis - Elisabet Personal nurse wound care updated bedside Dispo-stable for dc to [facility] Notes For Next Care Provider None Medication Changes From Visit Added azithro 250mg po daily x 3 more days Added albuterol HFA 2 puffs qid prn cough, to be used with spacer Admission HPI Per Admitting Provider Randal Kline is an 88 year old male who presents to the ER with episode of facial flushing, respiratory distress and concern for allergic reaction during his first chemotherapy today. He was given IV steroids, Benadryl and famotidine and sent to the ER. He also noticed some twitching of his leg after receiving Benadryl prior to the chemotherapy. Wheezing in the ER which resolved with duoneb. No history of asthma or COPD or requirement of inhalers but prior imaging has suggested emphysema. His nurse wound care thinks he only received about 5 minutes of the chemotherapy before reaction started and it was discontinued. Discharge Exam Constitutional WD/WN, vitals as above Respiratory normal respiratory effort, lungs clear to auscultation Cardiovascular RRR, no murmur, no edema Gastrointestinal (Abdomen) normal bowel sounds, soft, nontender, no hepatosplenomegaly Discharge Plan Discharge Items Patient Disposition: Personal Skilled Nursing Reason For Visit: wheezing, possible allergic reaction to chemo Discharge Diagnosis: Allergic reaction to chemotherapy Entero/Rhinovirus with cough Condition on Discharge: Good Activity: Resume your previous activity Non-emergency contact: Primary Care Provider and Oncologist Call non-emergency contact if: you have any medication questions and your symptoms worsen Follow-up/Referrals: Christopher Kearns MD [Primary Care Provider] - (Follow up within 1-2 weeks) Diet: Heart Healthy Addtl Attending Provider Instructions: Please take the azithromycin antibiotic for 3 more days and you can use the albuterol inhaler with the spacer device four times a day as needed for cough. Follow up with your Oncologist as planned next week. Pending Studies at Discharge: No Stand-Alone Forms: My [employer], Smoking Cessation Skilled Items Patient informed of condition?: Yes DNR: Yes Discharge Level of Care: Other Communicable Disease: Yes (Entero/Rhinovirus) Discharge Prognosis: Improving Lines: None Urinary Catheter: No Medications and DC Order Prescriptions: New azithromycin 250 mg Tablet 250 mg PO QAM Qty: 3 0RF albuterol sulfate 90 mcg/actuation HFA aerosol inhaler 2 inh inhalation QID PRN (Reason: shortness of breath or cough) Qty: 8.5 0RF Continued carvedilol 3.125 mg tablet 3.125 mg PO BID Qty: 60 5RF Rx Instructions: must administer with a meal/food Ensure Liquid 1 ea PO DAILY Qty: 5688 3RF Rx Instructions: 1 drink daily IN EVENING atorvastatin 40 mg tablet 40 mg PO QAM Qty: 90 1RF gabapentin 100 mg capsule 100 mg PO .qhs Qty: 90 0RF apixaban 2.5 mg tablet 2.5 mg PO BID Qty: 60 5RF Hold Instructions: Resume on 10/22/23. Resume if urine is clear to light pink benzonatate 100 mg capsule 100 mg PO TID PRN (Reason: cough) Qty: 30 0RF Rx Instructions: PRN for cough acetaminophen [Pain Reliever (acetaminophen)] 325 mg tablet 650 mg PO BID Qty: 60 5RF cholecalciferol (vitamin D3) [Vitamin D3] 50 mcg (2,000 unit) tablet 2,000 unit PO QAM Qty: 90 3RF diclofenac sodium [Voltaren Arthritis Pain] 1 % gel 4 g topical BID Qty: 100 2RF Rx Instructions: apply to legs/knees twice daily for pain hydrocortisone 2.5 % cream 1 applic topical BID PRN (Reason: skin irritation) Qty: 20 0RF potassium chloride 10 mEq tablet extended release 10 meq PO BID Qty: 60 5RF loperamide 2 mg tablet 2 mg PO DAILY PRN (Reason: loose stools) docusate sodium [Colace] 100 mg capsule 100 mg PO DAILY PRN (Reason: Constipation) Systane (PF) 0.4-0.3 % dropperette 1 drp ophthalmic (eye) BID PRN (Reason: Dry Eye(S)) (DME) lancets [OneTouch Delica Plus Lancet] 30 gauge misc See Rx Instructions .ROUTE .MEDSUPPLY Qty: 100 0RF Rx Instructions: As directed to check sugar when feeling lightheaded (DME) lancing device with lancets [OneTouch Delica Plus Lanc Dev] Kit See Rx Instructions .ROUTE .MEDSUPPLY Qty: 1 0RF Rx Instructions: As directed to check sugar when feeling lightheaded (DME) blood sugar diagnostic Strip See Rx Instructions .ROUTE .MEDSUPPLY Qty: 100 0RF Rx Instructions: As directed to check sugar when feeling lightheaded amoxicillin 500 mg capsule See Rx Instructions .ROUTE .COMPLEX PRN (Reason: Other) Rx Instructions: "Give 4 capsule by mouth as neede for prophylaxis; give 1 hour prior to dental visit." fluticasone propionate 50 mcg/actuation spray,suspension 2 spray INTRANASAL BID Qty: 16 5RF valsartan 40 mg tablet 20 mg PO DAILY Qty: 90 3RF famotidine 40 mg Tablet 40 mg PO DAILY PRN (Reason: Acid Reflux) Refresh Optive Michael-3 (PF) 0.5-1-0.5 % Dropperette 1 drp OPHTHALMIC (EYE) Q8 PRN (Reason: Dry Eyes) Rx Instructions: NEEDED FOR DRY EYES Refresh Optive Michael-3 (PF) 0.5-1-0.5 % Dropperette 1 drp OPHTHALMIC (EYE) BID Discharge Orders: Discharge Order (Routine); Ordered 05/30/24 Ordered By: Lizette Ackerman Admission Data Admit Date/Time: 05/28/24 12:28 Attending Provider: Lizette Ackerman Admit Provider: Teto Paul Primary Care Provider: Christopher Kearns Other Providers: Teto Paul; Mal Hubbard; Daysi Ly Hospital Stay Data Consultations 05/28/24 12:28 ED Decision to Admit Stat 05/29/24 07:14 Consult Oncology Routine 05/29/24 13:07 Consult Oncology Routine Diagnostic Imagining Performed 05/28/24 10:45 CT head/brain wo con Stat Pending Results Patient Have Any Pending Studies at Discharge: No Discharge Instructions Given to Patient (Per Discharging Provider) Please take the azithromycin antibiotic for 3 more days and you can use the albuterol inhaler with the spacer device four times a day as needed for cough. Follow up with your Oncologist as planned next week. Total Time Total Time Spent Total Time Spent (In Minutes): 35 min Total Time Includes: Examination of the Patient, Discharge Planning, Medication Reconciliation and Communication With Other Providers (his personal case resolution specialist) Coding Level of Care Code 19597 INP/OBS DISCH >30 MIN Diagnoses Allergic reaction caused by a drug T78.40XA Enterovirus infection B34.1 CLL (chronic lymphocytic leukemia) C91.90 History of stroke Z86.73 Essential hypertension I10 Hypertension type: essential hypertension Gastroesophageal reflux disease, esophagitis presence not specified K21.9 Esophagitis presence: esophagitis presence not specified
[2024-05-30 13:34] VITALS: BP 137/66; PULSE 66
== END 2024-05-30 14:58 | disposition home or self-care (01) ==
LOC: 2W 10:30 → ED 10:30 → SUATTDRO 12:28 → 2W 14:22
DX: Z79.899 Other long term (current) drug therapy; Z88.8 Allergy status to other drugs, medicaments and biological substances; J98.01 Acute bronchospasm; Z79.01 Long term (current) use of anticoagulants; T45.1X5A Adverse effect of antineoplastic and immunosuppressive drugs, initial encounter; D69.6 Thrombocytopenia, unspecified; B34.1 Enterovirus infection, unspecified; Z87.891 Personal history of nicotine dependence; I10 Essential (primary) hypertension; C91.90 Lymphoid leukemia, unspecified not having achieved remission; Z66 Do not resuscitate; Z86.73 Personal history of transient ischemic attack (TIA), and cerebral infarction without residual deficits; Z88.6 Allergy status to analgesic agent; K21.9 Gastro-esophageal reflux disease without esophagitis; R09.02 Hypoxemia; Z86.16 Personal history of COVID-19

== ENCOUNTER 2024-09-10 15:05 | Inpatient (IN) ==
--- NOTE | 2024-09-10 15:12 | Emergency Department Note ---
Impression & Plan Pneumonia, Acute hypoxemic respiratory failure ED Provider Note NAME: MIAN PRETTY AGE: 88 SEX: M : 1935 ARRIVES VIA: Ambulance INFORMANT: Patient, nursing report ED PROVIDER(S): Song Leigh MD CHIEF COMPLAINT: Cough MEDICAL DECISION MAKING: Patient presents due to concern for cough and weakness. IV was established and blood work was obtained. Patient was ordered DuoNeb treatment and methylprednisolone. Patient does have a known history of COPD. Patient's blood work shows a normal white count mild anemia hemoglobin 12.5 with a normal platelet count kidney function with creatinine 1.4. BioFire positive for internal rhinovirus. Patient's chest x-ray patient was ordered IV Rocephin as well as azithromycin by the inpatient team after discussing patient's case with the hospitalist service. Critical Care: I have personally spent 37 minutes of critical care time in direct management of this patient. This includes bedside care, interpretation of diagnostic studies, and testing, discussion with consultants, patient, and family members, and other require inpatient management activities. This 37 minutes is in excess of all separately billable procedures. Discussion w/ other healthcare providers: Dr. Reveles inpatient medicine service Prior /Outside records reviewed: None Differential diagnosis: Pneumonia, COPD infection, dehydration, metabolic abnormality, hypo/hyperglycemia, electrolyte imbalance, anemia, UTI, pneumonia, thyroid dysfunction among others were considered. Diagnostics, as interpreted by me: ECG: Normal sinus rhythm, rate of 64, wide QRS, right bundle branch block pattern, normal axis. Cardiac monitoring: An order was placed for continuous cardiac monitoring. The monitor shows a rate of 67 with sinus rhythm. Patient was placed on pulse oximetry Medical decision rules: Curb 65 score Imaging studies: I informally interpreted the patient's chest x-ray with right sided pneumonia with formal report to follow. HPI: Patient presents due to concern for shortness of breath. Patient presents today due to concern for cough and shortness of breath. Reported fever for 2 days. Patient has had cough for several weeks but seem to be worse just in the last week or so. Patient does feel more weak and fatigued. Trying to eat and drink but is not been eating very well the last several days. Patient with prior history of CVA with chronic deficits. Patient denies any chest pains. Patient denies any leg swelling or calf pain. PAST MEDICAL HISTORY: See Below PAST SURGICAL HISTORY: See Below SOCIAL HISTORY: See Below HOME MEDICATIONS: See Below ALLERGIES: See Below VITALS: See Below PHYSICAL EXAMINATION: GENERAL: NAD, non-toxic. Wearing glasses, nasal cannula in place. EYE EXAM: Normal conjunctiva. PERRL, no anisocoria and EOM's grossly intact w/o pain. OROPHARYNX: Moist mucus membranes, grossly normal dentition. NECK: Trachea midline, no stridor. Supple, no nuchal rigidity, no adenopathy, non-tender. No signs of meningismus. FROM of the neck with good chin to chest and neck extension. LUNGS: Decreased breath sounds scant wheezing noted throughout. Normal chest wall mechanics. HEART: NSR, no MRG. ABDOMEN: Abdomen soft, non-tender, no masses, no rebound or guarding. BACK: No CVA TTP. SKIN: No rashes and no bruising. UPPER EXTREMITIES: Upper extremities are grossly normal. LOWER EXTREMITIES: Grossly normal, no edema. NEURO EXAM: A&O x3, cranial nerves II-XII grossly intact, normal speech, moves all 4 extremities. Past Med/Surg History Problem List (Updated 09/12/24 @ 09:44 by Song Leigh MD) Acute hypoxemic respiratory failure (Acute) Pneumonia (Acute) Pneumonia Chronic otitis media with effusion, bilateral Mixed hearing loss, bilateral PVD (peripheral vascular disease) BPH w urinary obs/LUTS Urinary retention Bladder stones COPD (chronic obstructive pulmonary disease) Urethral stricture Constipation Gait abnormality AAA (abdominal aortic aneurysm) CVA (cerebral vascular accident) (Acute) cardio-embolic in 2022. PFO. On anticoagulation since then Mixed conductive and sensorineural hearing loss of right ear with restricted hearing of left ear Arteriosclerosis of carotid artery Gout GERD (gastroesophageal reflux disease) Hyperlipidemia Hypertension CKD (chronic kidney disease) CAD (coronary artery disease) Nonobstructive per cardio records (pt denies cardiac cath per 01/18/22 cardio note) Cardiomyopathy EF 35-40% per 05/2023 ECHO (EF 60-65% on 2020 ECHO) CLL (chronic lymphocytic leukemia) (Acute) Osteoporosis Medical History Mixed hearing loss, bilateral History of Clostridium difficile infection Atherosclerosis Left inguinal hernia History of stroke Right bundle branch block Allergic reaction caused by a drug Carotid artery disease Aortic aneurysm Bifascicular block History of seizure Hyperlipidemia Hypertension Surgical History S/P total right hip arthroplasty History of circumcision S/P left inguinal hernia repair (03/21/22) H/O right inguinal hernia repair (08/03/20) Status post incision and drainage (06/26/20) Status post thoracic aortic aneurysm repair (2017) Hip fracture requiring operative repair History of right hip replacement History of left hip replacement Nausea and vomiting after administration of anesthetic agent Hx of nasal polypectomy History of hernia surgery History of cataract surgery History of tonsillectomy H/O thoracic aortic aneurysm repair History of carotid endarterectomy Family History Brother Colorectal cancer Stroke Family history of diabetes mellitus Father Heart disease Hypertension Stroke Other No family history of adverse response to anesthesia Denies family history of Ovarian cancer Prostate cancer Myocardial infarction Breast cancer Social History Smoking Status: Unknown if ever smoked Tobacco Type: Cigarettes and Pipe Age Started Using Tobacco: 20; Age Quit Using Tobacco: 74; packs per day: 0.75; Cigarettes Per Day: 10-15 cig/day; Second Hand Exposure: No; Do You Dip or Chew Tobacco: No; Tobacco Cessation Education Requested by Patient: No Hx Alcohol Use: No Hx Substance Use: No Preferred Language: Telugu Communication Ability: Effective Communication Ability Comment: Pt. [place] bilaterally Visual Impairment: No Limitations Hearing Ability: Use of Hearing Aid [employer] Required: No Beliefs That Will Affect Care: None marital status: / Current Living Situation: Personal Care Facility Current Living Situation Comment: resident of [facility] current occupational status: retired How many Children do You have: 0 Other Information That Helps Us Care for You: No Feels Safe at Home: Yes Safety Concerns: Feels Safe At This Time Childhood Exposure to Second-Hand Smoke: Yes Dental Care, Regularly: Yes Physical Activity Frequency: 1-2 Times per Week Seatbelt Use: always Sunscreen Use: No Assistive Devices: Walker Assistive Devices Comment: Walker, glasses,BL hearing aids here Allergies Allergies Allergy/AdvReac Type Severity Reaction Status Date / Time KVNG Inhibitors AdvReac Mild Cough Verified 09/10/24 17:10 codeine AdvReac Mild Nausea Verified 09/10/24 17:10 Home Meds Home Medications Medication Instructions Recorded Confirmed carboxymethyl 0.5 %-glycerin 1 1 drp OPB BID Dry Eyes 05/28/24 09/10/24 %-polysorb 80 0.5 %-PF eye dropperette (Refresh Optive Michael-3 (PF)) famotidine 40 mg tablet 40 mg PO DAILY PRN Acid Reflux 05/28/24 09/10/24 prochlorperazine maleate 10 mg 10 mg PO Q6H PRN Nausea 06/19/24 09/10/24 tablet acetaminophen 325 mg tablet 650 mg PO Q4 PRN Pain 09/10/24 09/10/24 acetaminophen 325 mg tablet 650 mg PO Q4 PRN TEMP>100 09/10/24 09/10/24 albuterol sulfate 90 mcg/actuation 2 inh inhalation QID shortness of 09/10/24 09/10/24 aerosol inhaler breath or cough apixaban 2.5 mg tablet 2.5 mg PO AMHS 09/10/24 09/10/24 carboxymethyl 0.5 %-glycerin 1 1 drp ophthalmic (eye) Q8 PRN Dry 09/10/24 09/10/24 %-polysorb 80 0.5 %-PF eye Eyes dropperette (Refresh Optive Michael-3 (PF)) food supplemt, lactose-reduced 1 ea PO QPM 09/10/24 09/10/24 (Ensure oral liquid) gabapentin 100 mg capsule 100 mg PO HS 09/10/24 09/10/24 venetoclax 100 mg tablet 200 mg PO DAILY 09/10/24 09/10/24 (Venclexta) Previous Rx's Medication Instructions Recorded blood sugar diagnostic #100 ea 10/09/23 lancets 30 gauge (OneTouch Delica #100 ea 10/09/23 Plus Lancet) lancing device with lancets kit #1 ea 10/09/23 ([email or web address] Delica Plus Lancing Device kit) valsartan 40 mg tablet 20 mg (1/2 x 40 mg) PO DAILY #90 01/01/24 tabs atorvastatin 40 mg tablet 40 mg PO QAM #90 tabs 02/01/24 cholecalciferol (vitamin D3) 50 2,000 unit PO QAM #90 tabs 05/14/24 mcg (2,000 unit) tablet (Vitamin D3) diclofenac sodium 1 % topical gel 4 g topical BID #100 grams 05/14/24 (Voltaren Arthritis Pain) hydrocortisone 2.5 % topical cream 1 applic topical BID PRN skin 05/29/24 irritation #20 grams potassium chloride 10 mEq 10 meq PO BID #60 tabs 05/29/24 tablet,extended release amoxicillin 500 mg capsule See Rx Instructions .Route 06/11/24 .COMPLEX PRN Other #4 caps loperamide 2 mg tablet 2 mg PO DAILY PRN loose stools #30 06/11/24 tabs carvedilol 3.125 mg tablet 3.125 mg PO BID #60 tabs 06/18/24 fluticasone propionate 50 2 spray intranasal BID Allergic 09/04/24 mcg/actuation nasal Symptoms #16 grams spray,suspension acetaminophen 325 mg tablet (Pain 650 mg (2 x 325 mg) PO BID pain 09/05/24 Reliever (acetaminophen)) #60 tabs Results & Data (ED) Home Medications Current Medication List: was personally reviewed by me Laboratory Data Attestation: I reviewed the patient's lab results. 09/12/24 07:58 09/12/24 07:58 Lab Results 09/10/24 Range/Units 15:16 WBC 6.37 (4.8-10.8) K/ul RBC 3.96 L (4.70-6.10) M/uL Hgb 12.5 L (14.0-18.0) g/dl Hct 36.1 L (42.0-52.0) % MCV 91.2 (80.0-100.0) fL MCH 31.6 (25.0-34.0) pg MCHC 34.6 (32.0-36.0) g/dL RDW Std Deviation 44.3 (36.4-46.3) fL RDW Coeff of Jewel 13.1 (11.5-14.5) % Plt Count 179 (130-400) K/uL MPV 11.0 (9.4-12.4) fL Immature Gran % (Auto) 1.6 % Neut % (Auto) 68.9 % Lymph % (Auto) 3.6 % [place] % (Auto) 25.6 % Eos % (Auto) 0.0 % Baso % (Auto) 0.3 % Neut # (Auto) 4.39 (1.40-6.50) K/uL Lymph # (Auto) 0.23 L (1.20-3.40) K/uL [place] # (Auto) 1.63 H (0.11-0.59) K/uL Eos # (Auto) 0.00 (0.00-0.50) K/uL Baso # (Auto) 0.02 (0.00-0.20) K/uL Immature Gran # (Auto) 0.10 (0.01-0.20) K/uL Sodium 135 L (136-145) mmol/L Potassium 3.6 (3.5-5.1) mmol/L Chloride 103 (98-107) mmol/L Carbon Dioxide 23 (21-32) mmol/L Anion Gap 9 (3-11) BUN 24 H (6-23) mg/dl Creatinine 1.44 H (0.6-1.4) mg/dl Est Cr Clr Drug Dosing 28.2 ml/min eGFR 47.32 BUN/Creatinine Ratio 16.7 (10-20) Glucose 120 H (70-99(Fasting)) mg/dl Calcium 10.2 (8.6-10.3) mg/dl Magnesium 1.8 (1.7-2.4) mg/dl Total Bilirubin 0.8 (0.2-1.0) mg/dl AST 13 (13-39) U/L ALT 14 (7-52) U/L Alkaline Phosphatase 69 (34-104) U/L Total Protein 6.7 (6.0-8.3) gm/dl Albumin 3.3 L (3.4-5.0) gm/dl Globulin 3.4 (2.5-4.0) gm/dl Albumin/Globulin Ratio 1.0 (0.9-2) Procalcitonin 0.30 (0-0.5) ng/ml TSH 1.929 (0.300-4.500) uIu/ml Adenovirus (PCR) Not Detected (NotDetected) B. pertussis DNA (PCR) Not Detected (NotDetected) B.parapertussis DNA PCR Not Detected (NotDetected) C. pneumoniae DNA (PCR) Not Detected (NotDetected) Coronavirus OC43 (PCR) Not Detected (NotDetected) Coronavirus HKU1 (PCR) Not Detected (NotDetected) Coronavirus 229E (PCR) Not Detected (NotDetected) SARS-CoV-2 (PCR) Not Detected (NotDetected) Coronavirus NL63 (PCR) Not Detected (NotDetected) Human Metapneumovir PCR Not Detected (NotDetected) Influenza Type A (PCR) Not Detected (NotDetected) Influenza Type B (PCR) Not Detected (NotDetected) M. pneumoniae (PCR) Not Detected (NotDetected) Parainfluenza 1 (PCR) Not Detected (NotDetected) Parainfluenza 2 (PCR) Not Detected (NotDetected) Parainfluenza 3 (PCR) Not Detected (NotDetected) Parainfluenza 4 (PCR) Not Detected (NotDetected) RSV (PCR) Not Detected (NotDetected) Entero/Rhino (PCR) DETECTED A (NotDetected) Administered Medications Acetaminophen (Acetaminophen 500 Mg Tab) 500 mg PO Q4H PRN PRN Reason: pain/fever Stop: 10/10/24 17:38 Last Admin: 09/10/24 21:35 Dose: 500 mg Documented By: GLORIA Apixaban (Apixaban 2.5 Mg Tab) 2.5 mg PO [facility] Stop: 10/10/24 20:59 Last Admin: 09/12/24 08:22 Dose: 2.5 mg Documented By: Admin: 09/11/24 20:09 Dose: 2.5 mg Documented By: Admin: 09/11/24 09:20 Dose: 2.5 mg Documented By: Admin: 09/10/24 21:36 Dose: 2.5 mg Documented By: GLORIA Atorvastatin Calcium (Atorvastatin 40 Mg Tab) 40 mg PO [facility] Stop: 10/11/24 08:59 Last Admin: 09/12/24 08:22 Dose: 40 mg Documented By: Admin: 09/11/24 09:14 Dose: 40 mg Documented By: BOZENA Azithromycin (Azithromycin 250 Mg Tab) 250 mg PO [facility] Stop: 09/16/24 08:59 Last Admin: 09/12/24 08:22 Dose: 250 mg Documented By: Admin: 09/11/24 09:13 Dose: 250 mg Documented By: BOZENA Carvedilol (Carvedilol 3.125 Mg Tab) 3.125 mg PO BID [facility] Stop: 10/10/24 20:59 Last Admin: 09/12/24 08:22 Dose: Not Given Documented By: Admin: 09/11/24 20:09 Dose: 3.125 mg Documented By: Admin: 09/11/24 09:19 Dose: 3.125 mg Documented By: Admin: 09/10/24 21:35 Dose: 3.125 mg Documented By: GLORIA Lopez Syrup (Lopez Syrup 5 Ml Udp) 5 ml PO DAILY [facility] Stop: 09/20/24 17:59 Last Admin: 09/12/24 08:23 Dose: 5 ml Documented By: Admin: 09/11/24 09:13 Dose: 5 ml Documented By: Admin: 09/10/24 19:34 Dose: 5 ml Documented By: JENNIFER Diclofenac Sodium (Diclofenac Sod 1% Gel 100 Gm Tube) 4 gm EXT BID JORGE; Protocol Stop: 10/10/24 20:59 Last Admin: 09/12/24 08:23 Dose: 4 gm Documented By: Admin: 09/11/24 20:09 Dose: 4 gm Documented By: Admin: 09/11/24 09:23 Dose: 4 gm Documented By: Admin: 09/10/24 21:36 Dose: 4 gm Documented By: GLORIA Ceftriaxone Sodium (Rocephin) 2,000 mg in 50 mls @ 100 mls/hr IV Q24H [facility] Stop: 09/12/24 17:59 Last Infusion: 09/11/24 18:32 Dose: Infused Documented By: Admin: 09/11/24 17:49 Dose: 100 mls/hr Documented By: Infusion: 09/10/24 20:25 Dose: Infused Documented By: Admin: 09/10/24 18:09 Dose: 100 mls/hr Documented By: JENNIFER Sodium Chloride (Nss) 1,000 mls @ 80 mls/hr IV .[id number] [facility] Last Infusion: 09/12/24 02:32 Dose: Infused Documented By: Infusion: 09/11/24 20:05 Dose: 80 mls/hr Documented By: Admin: 09/11/24 12:40 Dose: 80 mls/hr Documented By: BOZENA Potassium Chloride (Potassium Chloride 10 Meq Tabcr) 10 meq PO BID JORGE Stop: 10/10/24 20:59 Last Admin: 09/12/24 08:31 Dose: 10 meq Documented By: Admin: 09/11/24 20:09 Dose: 10 meq Documented By: Admin: 09/11/24 09:22 Dose: 10 meq Documented By: Admin: 09/10/24 21:37 Dose: 10 meq Documented By: GLORIA Vancomycin HCl (Vancomycin Hcl 125 Mg/2.5ml Soln) 125 mg PO DAILY JORGE Stop: 09/20/24 17:59 Last Admin: 09/12/24 08:31 Dose: 125 mg Documented By: Admin: 09/11/24 09:13 Dose: 125 mg Documented By: Admin: 09/10/24 19:34 Dose: 125 mg Documented By: JENNIFER Vitamin D (Cholecalciferol 25 Mcg (1000 Units) Tab) 50 mcg PO QAM JORGE Stop: 10/11/24 08:59 Last Admin: 09/12/24 08:23 Dose: 50 mcg Documented By: Admin: 09/11/24 09:19 Dose: 50 mcg Documented By: BOZENA Discontinued Medications Albuterol (Albut/Ipratrop 3mg/0.5mg Neb 3 Ml Vial) 3 ml NEB NOW STA; Protocol Stop: 09/10/24 15:39 Last Admin: 09/10/24 16:04 Dose: 3 ml Documented By: JENNIFER Azithromycin (Azithromycin 250 Mg Tab) 500 mg PO NOW ONE Stop: 09/10/24 17:35 Last Admin: 09/10/24 18:08 Dose: 500 mg Documented By: JENNIFER Sodium Chloride (Nss) 1,000 mls @ 999 mls/hr IV .Q1H1M ONE Stop: 09/10/24 18:34 Last Infusion: 09/10/24 20:25 Dose: Infused Documented By: Admin: 09/10/24 18:13 Dose: 999 mls/hr Documented By: JENNIFER Methylprednisolone (Methylprednisolone 125 Mg/2 Ml Vial) 125 mg IV NOW STA Stop: 09/10/24 15:39 Last Admin: 09/10/24 16:05 Dose: 125 mg Documented By: JENNIFER Imaging Data Radiologist's Impression: Chest X-Ray 09/10/24 15:38 EXAM: X-ray chest one-view portable CLINICAL HISTORY: Weakness PRIORS: Chest CT 08/26/2024, chest radiograph 06/06/2024 TECHNIQUE: Upright AP chest FINDINGS: The chest is well-expanded. New opacification present in the right middle lobe, appearing in the interval. Aortic stent noted, unchanged. Heart size is top normal. No pneumothorax. Trachea is patent. Osseous structures demonstrate no acute abnormality. No radiopaque foreign body. IMPRESSION: Right middle lobe pneumonia, appearing in the interval. Electronically signed by Leonora Jacobs 09-10-2024 4:52 PM Discharge Plan Visit Data Chief Complaint: Illness Stated Complaint: Cough + Congestion ED Provider: Song Leigh Discharge Problem: Pneumonia, Acute hypoxemic respiratory failure Patient Disposition: Admitted As Inpatient Discharge Instructions Interventions: ED Discharge Assessment Last Done: 09/10/24 20:21 Discharge Problem: Pneumonia Qualifiers: Pneumonia type: due to unspecified organism Laterality: right Lung location: m iddle lobe of lung Qualified Code(s): J18.9 - Pneumonia, unspecified organism
[2024-09-10 16:01] LABS: Basophils # (auto) 0.02 K/uL (0.00-0.20); Basophils % (auto) 0.3 %; Hematocrit (blood only) 36.1 % (42.0-52.0); Hemoglobin 12.5 g/dl (14.0-18.0); Immature Granulocytes % (auto) 1.6 %; Lymphocytes # (auto) 0.23 K/uL (1.20-3.40); Lymphocytes % (auto) 3.6 %; Mean Corpuscular Hemoglobin 31.6 pg (25.0-34.0); Mean Corpuscular Hgb Conc 34.6 g/dL (32.0-36.0); Mean Corpuscular Volume 91.2 fL (80.0-100.0); Monocytes # (auto) 1.63 K/uL (0.11-0.59); Monocytes % (auto) 25.6 %; Neutrophils # (auto) 4.39 K/uL (1.40-6.50); Neutrophils % (auto) 68.9 %; Platelet Count 179 K/uL (130-400); RDW Coefficient of Variation 13.1 % (11.5-14.5); RDW Standard Deviation 44.3 fL (36.4-46.3); Red Blood Count 3.96 M/uL (4.70-6.10); White Blood Count 6.37 K/ul (4.8-10.8)
[2024-09-10] MEDS: ALBUT/IPRATROP 3MG/0.5MG NEB 3 ML VIAL NEB STA (16:04)
[2024-09-10] MEDS: methylPREDNISolone 125 MG/2 ML VIAL IV STA (16:05)
[2024-09-10 16:13] LABS: Albumin Level 3.3 gm/dl (3.4-5.0); BUN Creatinine Ratio 16.7 (10-20); Bilirubin,Total 0.8 mg/dl (0.2-1.0); Calcium 10.2 mg/dl (8.6-10.3); Creatinine Clr Calc Pharmacy 28.2 ml/min; Globulin 3.4 gm/dl (2.5-4.0); Magnesium 1.8 mg/dl (1.7-2.4); Potassium 3.6 mmol/L (3.5-5.1); Total Protein 6.7 gm/dl (6.0-8.3)
[2024-09-10 16:28] LABS: Thyroid Stimulating Hormone 1.929 uIu/ml (0.300-4.500)
[2024-09-10 16:39] LABS: Adenovirus PCR Not Detected (NotDetected); Bordetella parapertussis PCR Not Detected (NotDetected); Bordetella pertussis PCR Not Detected (NotDetected); Chlamydia pneumoniae PCR Not Detected (NotDetected); Coronavirus 229E PCR Not Detected (NotDetected); Coronavirus CoV-2 (COVID19)PCR Not Detected (NotDetected); Coronavirus HKU1 PCR Not Detected (NotDetected); Coronavirus NL63 PCR Not Detected (NotDetected); Coronavirus OC43PCR Not Detected (NotDetected); Human Metapneumovirus PCR Not Detected (NotDetected); Influenza A PCR Not Detected (NotDetected); Influenza B PCR Not Detected (NotDetected); Mycoplasma pneumoniae PCR Not Detected (NotDetected); Parainfluenza Virus 1 PCR Not Detected (NotDetected); Parainfluenza Virus 2 PCR Not Detected (NotDetected); Parainfluenza Virus 3 PCR Not Detected (NotDetected); Parainfluenza Virus 4 PCR Not Detected (NotDetected); Respiratory Syncytial VirusPCR Not Detected (NotDetected); Rhinovirus/Enterovirus PCR DETECTED (NotDetected)
--- NOTE | 2024-09-10 16:53 | XRay Report ---
EXAM: X-ray chest one-view portable CLINICAL HISTORY: Weakness PRIORS: Chest CT 08/26/2024, chest radiograph 06/06/2024 TECHNIQUE: Upright AP chest FINDINGS: The chest is well-expanded. New opacification present in the right middle lobe, appearing in the interval. Aortic stent noted, unchanged. Heart size is top normal. No pneumothorax. Trachea is patent. Osseous structures demonstrate no acute abnormality. No radiopaque foreign body. IMPRESSION: Right middle lobe pneumonia, appearing in the interval. Electronically signed by Leonora Jacobs 09-10-2024 4:52 PM
--- NOTE | 2024-09-10 17:13 | History & Physical Report ---
Date of Service September 10, 2024 Assessment & Plan (1) Pneumonia: Plan: Acute hypoxic respiratory failure due to entero-/rhinovirus.? Superimposed right middle lobe pneumonia Enterovirus/rhinovirus positive Chest x-ray shows a right middle lobe lobar pneumonia. Patient febrile with poor clinical appearance and may not mount an effective leukocytosis due to ongoing agents for CLL. Given this we will treat empirically for superimposed right middle lobe pneumonia, CAP, with Rocephin/azithromycin. Pro-Isaías ordered. Due to history of C. difficile we will continue vancomycin 125Milligrams daily for PPx. No tachycardia, borderline hypotension on admission. Afebrile in the ER Does not meet sepsis criteria on admission. no chest pain or chest pressure. Patient is encephalopathic on admission Clinically volume contracted with poor p.o. intake, no tachycardia or SANDY. 1 L IV FM ordered. Sepsis bolus not currently indicated, and caution fluids given history of reduced ejection fraction Sputum culture pending. Titrate oxygen to goal 90-94% (2) CLL (chronic lymphocytic leukemia): Plan: CLL Chlorambucil started 2021, discontinued January 2022. Currently on venetoclax daily but has not been able to tolerate this in 2 days, and Obinutuzumab monthly Daily CBC, Monday clocks held in the setting of acute illness (3) CVA (cerebral vascular accident): Plan: History of embolic CVA Continue Eliquis. Patient has not had documented A-fib, does have a history of ALTAGRACIA/carotid endarterectomy Continue statin (4) BPH w urinary obs/LUTS: Plan: Denies recent symptoms. Bladder scan as needed (5) Cardiomyopathy: Plan: Last echo with moderate global hypokinesis, EF 35-40% No chest pain or chest pressure [employer] Clinically volume contracted Hypertension Valsartan held for hypotension. Carvedilol continued to prevent beta-juan withdrawal, hold if SBP less than 100 (6) CKD (chronic kidney disease): Plan: Baseline creatinine 1.31.9, although recently as high as 2.2 Admitting creatinine 1.44 Trend daily. Clinically he is volume contracted Losartan held as noted for hypotension and volume contraction. Resume as clinically indicated Plan DVT prophylaxis: Anticoagulated Diet: Regular, boost CODE STATUS: DNR/DNI History of Present Illness Primary Care Provider: DO Randal Grove is an 88-year-old male with past medical history of AAA, CVA, GERD, CKD, CAD with EF 35 to 40% 2022, nonobstructive, multifocal embolic stroke with chronic fatigue, CLL Fever x2 days, 102.0*F and 100* today. Cough and shortness of breath. Cough been present for several weeks, but seemed to get worse last 6 days. Much more weak than normal. has residual L facial drooop and weakness from prior CVA. Cough minimally productive, white. +Congestion. Trying to eat and drink on Venclexta, but +anorexia and poor intake last 3-4 days. 1 episode of nonbloody, nonmelanic loose stool Monday. Is currently on obinutuzumab montly and venclexta, but has not taken venclexta in 2 days du eto feeling poorly. Feels this is helping with his cancer, but also hard to tolerate and feels washed out COVID and Flu vaccinated last fall Has a history of some facial droop, dysarthria and weakness due to prior CVA. Denies new focal sensory/strength changes. Overall feels much weaker in the last week Medical History: Reviewed Medications: Reviewed Surgical History: Reviewed Family history: Reviewed Allergies: Reviewed Social History: No tobacco/ETOH Code Status: DNR/DNI Allergies Allergy/AdvReac Type Severity Reaction Status Date / Time KVNG Inhibitors AdvReac Mild Cough Verified 09/10/24 17:10 codeine AdvReac Mild Nausea Verified 09/10/24 17:10 Home Medications Medication Instructions Recorded Confirmed Type blood sugar diagnostic #100 ea 10/09/23 09/10/24 Rx lancets 30 gauge (OneTouch Delica #100 ea 10/09/23 09/10/24 Rx Plus Lancet) lancing device with lancets kit #1 ea 10/09/23 09/10/24 Rx (OneTouch Delica Plus Lancing Device kit) valsartan 40 mg tablet 20 mg (1/2 x 40 mg) PO DAILY #90 01/01/24 09/10/24 Rx tabs atorvastatin 40 mg tablet 40 mg PO QAM #90 tabs 02/01/24 09/10/24 Rx cholecalciferol (vitamin D3) 50 2,000 unit PO QAM #90 tabs 05/14/24 09/10/24 Rx mcg (2,000 unit) tablet (Vitamin D3) diclofenac sodium 1 % topical gel 4 g topical BID #100 grams 05/14/24 09/10/24 Rx (Voltaren Arthritis Pain) carboxymethyl 0.5 %-glycerin 1 1 drp OPB BID Dry Eyes 05/28/24 09/10/24 History %-polysorb 80 0.5 %-PF eye dropperette (Refresh Optive Michael-3 (PF)) famotidine 40 mg tablet 40 mg PO DAILY PRN Acid Reflux 05/28/24 09/10/24 History hydrocortisone 2.5 % topical cream 1 applic topical BID PRN skin 05/29/24 09/10/24 Rx irritation #20 grams potassium chloride 10 mEq 10 meq PO BID #60 tabs 05/29/24 09/10/24 Rx tablet,extended release amoxicillin 500 mg capsule See Rx Instructions .Route 06/11/24 09/10/24 Rx .COMPLEX PRN Other #4 caps loperamide 2 mg tablet 2 mg PO DAILY PRN loose stools #30 06/11/24 09/10/24 Rx tabs carvedilol 3.125 mg tablet 3.125 mg PO BID #60 tabs 06/18/24 09/10/24 Rx prochlorperazine maleate 10 mg 10 mg PO Q6H PRN Nausea 06/19/24 09/10/24 History tablet fluticasone propionate 50 2 spray intranasal BID Allergic 09/04/24 09/10/24 Rx mcg/actuation nasal Symptoms #16 grams spray,suspension acetaminophen 325 mg tablet (Pain 650 mg (2 x 325 mg) PO BID pain 09/05/24 09/10/24 Rx Reliever (acetaminophen)) #60 tabs acetaminophen 325 mg tablet 650 mg PO Q4 PRN Pain 09/10/24 09/10/24 History acetaminophen 325 mg tablet 650 mg PO Q4 PRN TEMP>100 09/10/24 09/10/24 History albuterol sulfate 90 mcg/actuation 2 inh inhalation QID shortness of 09/10/24 09/10/24 History aerosol inhaler breath or cough apixaban 2.5 mg tablet 2.5 mg PO AMHS 09/10/24 09/10/24 History carboxymethyl 0.5 %-glycerin 1 1 drp ophthalmic (eye) Q8 PRN Dry 09/10/24 09/10/24 History %-polysorb 80 0.5 %-PF eye Eyes dropperette (Refresh Optive Michael-3 (PF)) food supplemt, lactose-reduced 1 ea PO QPM 09/10/24 09/10/24 History (Ensure oral liquid) gabapentin 100 mg capsule 100 mg PO HS 09/10/24 09/10/24 History venetoclax 100 mg tablet 200 mg PO DAILY 09/10/24 09/10/24 History (Venclexta) Past Med/Surg History Problem List (Updated 09/10/24 @ 17:28 by Henry Reveles MD) Pneumonia Chronic otitis media with effusion, bilateral Mixed hearing loss, bilateral PVD (peripheral vascular disease) BPH w urinary obs/LUTS Urinary retention Bladder stones COPD (chronic obstructive pulmonary disease) Urethral stricture Constipation Gait abnormality AAA (abdominal aortic aneurysm) CVA (cerebral vascular accident) (Acute) Mixed conductive and sensorineural hearing loss of right ear with restricted hearing of left ear Arteriosclerosis of carotid artery Gout GERD (gastroesophageal reflux disease) Hyperlipidemia Hypertension CKD (chronic kidney disease) CAD (coronary artery disease) Nonobstructive per cardio records (pt denies cardiac cath per 01/18/22 cardio note) Cardiomyopathy EF 35-40% per 05/2023 ECHO (EF 60-65% on 2020 ECHO) CLL (chronic lymphocytic leukemia) (Acute) Osteoporosis Medical History Mixed hearing loss, bilateral History of Clostridium difficile infection Atherosclerosis Left inguinal hernia History of stroke Right bundle branch block Allergic reaction caused by a drug Carotid artery disease Aortic aneurysm Bifascicular block History of seizure Hyperlipidemia Hypertension Surgical History S/P total right hip arthroplasty History of circumcision S/P left inguinal hernia repair (03/21/22) H/O right inguinal hernia repair (08/03/20) Status post incision and drainage (06/26/20) Status post thoracic aortic aneurysm repair (2016) Hip fracture requiring operative repair History of right hip replacement History of left hip replacement Nausea and vomiting after administration of anesthetic agent Hx of nasal polypectomy History of hernia surgery History of cataract surgery History of tonsillectomy H/O thoracic aortic aneurysm repair History of carotid endarterectomy Family History Brother Colorectal cancer Stroke Family history of diabetes mellitus Father Heart disease Hypertension Stroke Other No family history of adverse response to anesthesia Denies family history of Ovarian cancer Prostate cancer Myocardial infarction Breast cancer Social History Smoking Status: Never smoker Tobacco Type: Cigarettes and Pipe Age Started Using Tobacco: 20; Age Quit Using Tobacco: 74; packs per day: 0.75; Cigarettes Per Day: 10-15 cig/day; Second Hand Exposure: No; Do You Dip or Chew Tobacco: No; Hx Alcohol Use: No Hx Substance Use: No Preferred Language: Montserratian Communication Ability: Effective Communication Ability Comment: Pt. [place] bilaterally Visual Impairment: No Limitations Hearing Ability: Use of Hearing Aid Portfolio Assistant Required: No Beliefs That Will Affect Care: None marital status: / Current Living Situation: Long Term Current Living Situation Comment: resident of [facility] current occupational status: retired How many Children do You have: 0 Feels Safe at Home: Yes Childhood Exposure to Second-Hand Smoke: Yes Dental Care, Regularly: Yes Physical Activity Frequency: 1-2 Times per Week Seatbelt Use: always Sunscreen Use: No Assistive Devices: Walker Physical Exam Physical Exam: General: A&Ox3. NAD. Cooperative. Appears chronically ill, fatigued HEENT: Atraumatic, normocephalic. Vision and hearing grossly intact. Left- sided facial droop is present at rest. Some dysarthria is noted. No aphasia. Pupils equal and reactive to light Pulm: Diminished. No wheezing symmetrical chest rise. No increased work of breathing. No respiratory distress. Cardiac: RRR, -mrg. Radial pulses intact and symmetrical. Abdominal: Nontender, nondistended, soft. BS present. Results & Data Results & Data Vital Signs (Past 12 Hours) Vital Signs Temp Pulse Resp BP Pulse Ox O2 Del Method O2 Flow Rate 09/10/24 15:51 67 94 Nasal Cannula 2 09/10/24 15:22 67 09/10/24 15:18 93 Nasal Cannula 2 09/10/24 15:17 36.8 C 70 18 109/56 L 89 L Room Air PG Care Time/CCT Total # of Minutes Spent Total Time Spent with Patient: Total time spent is greater than 50% in coordination of care (as documented) at patient's floor/unit and/or counseling patient: Coding Level of Care Code 22642 INT INP/OBS CARE MIN Diagnoses Pneumonia J18.9 CLL (chronic lymphocytic leukemia) C91.90 CVA (cerebral vascular accident) I63.9 CVA mechanism: unspecified BPH w urinary obs/LUTS N40.1; N13.8 Cardiomyopathy I42.9 CKD (chronic kidney disease) N18.9 (3) CVA (cerebral vascular accident) CVA mechanism: unspecified Qualified Code(s): I63.9 - Cerebral infarction, unspecified
--- NOTE | 2024-09-10 17:34 | Electrocardiogram Report ---
Test Reason : Blood Pressure : */* mmHG Vent. Rate : 64 BPM Atrial Rate : 64 BPM P-R Int : 176 ms QRS Dur : 152 ms QT Int : 430 ms P-R-T Axes : -11 -19 0 degrees QTcB Int : 443 ms Normal sinus rhythm Right bundle branch block Old Inferior infarct (cited on or before 21-Jul-2023) Abnormal ECG When compared with ECG of 28-May-2024 10:38, [place] interval has decreased Confirmed by Juan Zamora ([id number]) on 09/10/2024 5:33:57 PM Referred By: Confirmed By: Juan Zamora
[2024-09-10] MEDS: AZITHROMYCIN 250 MG TAB PO ONE (18:08)
[2024-09-10] MEDS: cefTRIAXone SODIUM 2,000 MG/50 ML BAG IV SCH (18:09)
[2024-09-10] MEDS: SODIUM CHLORIDE 0.9% 1,000 ML IV ONE (18:13)
[2024-09-10] MEDS: VANCOMYCIN HCL 125 MG/2.5ML SOLN PO SCH (19:34)
[2024-09-10] MEDS: CHERRY SYRUP 5 ML UDP PO SCH (19:34)
[2024-09-10] MEDS ORDERED: FAMOTIDINE 40 MG TABLET PO PRN (20:59)
[2024-09-10] MEDS: carvediloL 3.125 MG TAB PO SCH (21:35)
[2024-09-10] MEDS: ACETAMINOPHEN 500 MG TAB PO PRN (21:35)
[2024-09-10] MEDS: DICLOFENAC SOD 1% GEL 100 GM TUBE EXT SCH (21:36)
[2024-09-10] MEDS: APIXABAN 2.5 MG TAB PO SCH (21:36)
[2024-09-10] MEDS: POTASSIUM CHLORIDE 10 MEQ TABCR PO SCH (21:37)
[2024-09-11 07:09] LABS: BUN Creatinine Ratio 22.4 (10-20); Calcium 9.5 mg/dl (8.6-10.3); Creatinine Clr Calc Pharmacy 32.4 ml/min; Potassium 3.6 mmol/L (3.5-5.1)
--- NOTE | 2024-09-11 07:16 | Hospitalist Progress Note ---
Date of Service September 11, 2024 Assessment & Plan (1) Pneumonia: Plan: Patient is an 88-year-old male with a PMH of CLL, AAA, CVA, CAD, GERD, CDK, EF of 35-40% in 2022 who presented to the hospital for SOB, cough, fever. Acute hypoxic respiratory failure likely due to entero-/rhinovirus. Superimposed right middle lobe pneumonia Enterovirus/rhinovirus positive Labs: 09/11/24: -WBC 2.43 (low) -RBC 3.56 (low) -Hgb 10.8 (low) -Hct 32.8 (low) -Plt 126 (low) -BUN 28 (high) -Creatinine 1.25 (normal), down from 1.44 -BUN/creatinine ratio 22.4 -procalcitonin 0.3 -Procal normal -Repeat sputum culture pending. Imaging: Chest x-ray shows a right middle lobe lobar pneumonia. Plan: -May not mount an effective leukocytosis due to ongoing agents for CLL. Given this we will treat empirically for superimposed right middle lobe pneumonia, CAP, with Rocephin/azithromycin. -Due to history of C. difficile we will continue vancomycin 125Milligrams daily for PPx. -Clinically volume contracted with poor p.o. intake. -Give 1 liter NSS over 12hrs. Be cautious of fluid overload due to reduced ejection fraction. -Repeat sputum culture due to contamination. Titrate oxygen to goal 90-94% (2) CLL (chronic lymphocytic leukemia): Plan: CLL Chlorambucil started 2021, discontinued January 2022. Currently on venetoclax daily but has not been able to tolerate this in 2 days, and Obinutuzumab monthly Daily CBC, Monday clocks held in the setting of acute illness (3) CVA (cerebral vascular accident): Plan: History of embolic CVA Continue Eliquis. 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 He is voiding on his own at this time. 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 Carvedilol continued to prevent beta-juan withdrawal, hold if SBP less than 100 (6) CKD (chronic kidney disease): Plan: Baseline creatinine 1.31.9, although recently as high as 2.2 Admitting creatinine 1.44, now down to 1.25 Trend daily. Clinically he is volume contracted Losartan held as noted for hypotension and volume contraction. Resume as clinically indicated Plan DVT prophylaxis: Anticoagulated Diet: Regular, boost CODE STATUS: DNR/DNI Admission and Anticipated Discharge Date Admission Date: September 10, 2024 Supervising Physician Co-Signing Physician Notes Attending Physician Supervision Note: I independently interviewed and examined the patient and verified the [place] history and physical, reviewed labs and image studies and agree with findings and care plan noted above. Reported neck pain from sleeping in bed with neck turned due to pillow - improved with repositioning. No chest pain, shortness of breath, abdominal pain. slight slurring in speech. Alert Ox3, Base crackles, RRR CAP - Rhinovirus+ - sputum cx negative. continue rocephin and azithromycin. (oral vanco for c diff proph d/t history) CMP/HTN/CAD/Hx cardioembolic CVA/PAD - avoid overhydration. continue coreg, valsartan, aspirin and apixaban. Urinary retention - h/o severe bladder outlet obstruction and urethral stricture. needed straight cath. monitor. CKD - stable CLL - follow counts. Subjective Patient is an 88-year-old male with a PMH of CLL, AAA, CVA, CAD, GERD, CKD, EF of 35-40% in 2022 who presented to the hospital for SOB, cough, fever He states his symptoms began last Monday and he could not get out of bed. He was experiencing constant coughing and some fatigue. He also noted some back pain which he attributes to his coughing. The cough has been dry but has transitioned into a productive cough this morning. He has not spit it out to see the color. He has been undergoing chemotherapy for CLL. He is currently on obinutuzumab monthly and venclexta, but has not taken his last two doses of venclexta due to not feeling well. Overall, he states he feels pretty good today other than his cough. -slow speech, trouble finding words Stroke in 1989 num[place] in r. hand from stroke Labs: -sputum culture: squamous cells indicate probably upper respiratory contamination. Recommend repeat collection. Imaging: -CXR: Middle right lobe pneumonia -EKG: Normal sinus rhythm, RBBB, prior infarct. Review of Systems Review of Systems: Constitutional Denies fever, chills, malaise HEENT endorses a sore neck due to positioning. Denies head pain, headaches. Denies eye pain, vision loss/changes, blurry vision, double vision. Denies ear pain, and recent hearing loss. Denies sore throat or sinus pain. Respiratory Has a productive cough accompanied by slight SOB. Denies pleuritic chest pain, wheezing CV Denies chest pain, heart palpitations, tachycardia, bradycardia, edema GI Denies abdominal pain, constipation, diarrhea, nausea, vomiting, hematochezia States he has trouble emptying his bladder. It can take a long time to empty and cannot completely void all at once. MSK Denies joint pain, muscle pain, decreased ROM, Neuro Denies altered mental status, slurred speech, numbness or tingling Psych Denies symptoms of depression or anxiety. Physical Exam Physical Exam: General: Alert and oriented X3 to person, place and day of week. He did state an inc orrect date with correct month and year. well appearing and in no acute distress HEENT: Nontender cervical lymphadenopathy palpated. Normocephalic, atraumatic, PERRLA, trachea midline, No thyromegaly appreciated Respiratory: Rhonchi auscultated in right middle lobe. No wheezes. Cardiovascular: Heart RRR without murmurs, rubs, or gallops. Symmetrical radial pulses. Abdomen: Slightly tender to palpation in RUQ, Abdomen is soft, nondistended. No hepatosplenomegaly appreciated. Normoactive bowel sounds. Negative Quezada's and McBurneys Musculoskeletal: Normal range of motion in upper extremities. Spinous processes nontender upon palpation. Neurologic: Cranial nerves II through XII are grossly intact.5/5 strength in right upper extremity. 4/5 strength in LUE which he says is consistent with his baseline from stroke. There is right sided facial also consistent with prior stroke. His speech is slow and has occasional trouble finding words. Otherwise, his speech is coherent without aphasia. Psychiatric: Appropriate mood and affect. Results & Data Results & Data Vital Signs (Past 12 Hours) Vital Signs Temp Pulse Pulse Resp BP BP Pulse Ox 12/11/24 07:09 36.4 C L 54 L 16 139/66 96 09/10/24 20:45 09/10/24 20:45 36.7 C 68 16 131/70 97 09/10/24 20:21 09/10/24 20:03 76 16 131/74 95 09/10/24 19:33 66 15 120/68 95 O2 Del Method O2 Flow Rate 09/11/24 07:09 Nasal Cannula 3 09/10/24 20:45 Nasal Cannula 3 09/10/24 20:45 Nasal Cannula 2 09/10/24 20:21 Nasal Cannula 2 09/10/24 20:03 2 09/10/24 19:33 2 Resident Activity Tracking Resident Involvement: Resident Care Provided Care Provided: Adult Hospital Medicine (3) CVA (cerebral vascular accident) CVA mechanism: unspecified Qualified Code(s): I63.9 - Cerebral infarction, unspecified
[2024-09-11 07:28] LABS: Hematocrit (blood only) 32.8 % (42.0-52.0); Hemoglobin 10.8 g/dl (14.0-18.0); Immature Granulocytes # (auto) 0.16 K/uL (0.01-0.20); Immature Granulocytes % (auto) 6.6 %; Lymphocytes # (auto) 0.09 K/uL (1.20-3.40); Lymphocytes % (auto) 3.7 %; Mean Corpuscular Hemoglobin 30.3 pg (25.0-34.0); Mean Corpuscular Hgb Conc 32.9 g/dL (32.0-36.0); Mean Corpuscular Volume 92.1 fL (80.0-100.0); Mean Platelet Volume 10.9 fL (9.4-12.4); Monocytes # (auto) 0.09 K/uL (0.11-0.59); Monocytes % (auto) 3.7 %; Neutrophils # (auto) 2.09 K/uL (1.40-6.50); Platelet Count 126 K/uL (130-400); RDW Standard Deviation 44.3 fL (36.4-46.3); Red Blood Count 3.56 M/uL (4.70-6.10); White Blood Count 2.43 K/ul (4.8-10.8)
[2024-09-11] MEDS: AZITHROMYCIN 250 MG TAB PO SCH (09:13)
[2024-09-11] MEDS: ATORVASTATIN 40 MG TAB PO SCH (09:14)
[2024-09-11] MEDS: CHOLECALCIFEROL 25 MCG (1000 UNITS) TAB PO SCH (09:19)
[2024-09-11] MEDS: SODIUM CHLORIDE 0.9% 1,000 ML IV SCH (12:40)
[2024-09-11 14:48] LABS: Appearance Urine Clear (Clear); Bacteria Urine Automated None Seen (None Seen); Bilirubin Urine Negative (Negative); Blood Urine Negative (Negative); Color Urine Yellow; Epithelial Cell Urine Auto 0-2 /hpf (0-2); Glucose Urine UA 2+ (Negative); Granular Casts Urine Present /lpf (None Prsent); Hyaline Casts Urine Present /lpf (None Presnt); Ketones Urine Negative (Negative); Leukocyte Esterase Urine Negative (Negative); Nitrite Urine Negative (Negative); Protein Urine 2+ (Negative); RBC Urine Automated 0-2 /hpf (0-2); Specific Gravity Urine 1.028 (1.000-1.030); Urobilinogen Urine Negative (Negative); WBC Urine Automated 0-5 /hpf (0-5); pH Urine 5.5 (4.5-7.5)
--- NOTE | 2024-09-12 08:20 | Hospitalist Progress Note ---
Date of Service September 12, 2024 Assessment & Plan (1) Pneumonia: Plan: Patient is an 88-year-old male with a PMH of CLL, AAA, CVA, CAD, GERD, CDK, EF of 35-40% in 2022 who presented to the hospital for SOB, cough, fever. Acute hypoxic respiratory failure likely due to entero-/rhinovirus. Superimposed right middle lobe pneumonia Enterovirus/rhinovirus positive Labs: 09/11/24: -WBC 2.43 (low) -RBC 3.56 (low) -Hgb 10.8 (low) -Hct 32.8 (low) -Plt 126 (low) -BUN 28 (high) -Creatinine 1.25 (normal), down from 1.44 -BUN/creatinine ratio 22.4 -procalcitonin 0.3 -Procal normal -Repeat sputum culture pending. Imaging: Chest x-ray shows a right middle lobe lobar pneumonia. Plan: -May not mount an effective leukocytosis due to ongoing agents for CLL. Given this we will treat empirically for superimposed right middle lobe pneumonia, CAP, with Rocephin/azithromycin. -Due to history of C. difficile we will continue vancomycin 125Milligrams daily for PPx. -Clinically volume contracted with poor p.o. intake. -Give 1 liter NSS over 12hrs. Be cautious of fluid overload due to reduced ejection fraction. -Repeat sputum culture due to contamination. Titrate oxygen to goal 90-94% (2) CLL (chronic lymphocytic leukemia): Plan: CLL Chlorambucil started 2021, discontinued January 2022. Currently on venetoclax daily but has not been able to tolerate this in 2 days, and Obinutuzumab monthly Daily CBC, Monday clocks held in the setting of acute illness (3) CVA (cerebral vascular accident): Plan: History of embolic CVA Continue Eliquis. 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 He is voiding on his own at this time. 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 Carvedilol continued to prevent beta-juan withdrawal, hold if SBP less than 100 (6) CKD (chronic kidney disease): Plan: Baseline creatinine 1.31.9, although recently as high as 2.2 Admitting creatinine 1.44, now down to 1.25 Trend daily. Clinically he is volume contracted Losartan held as noted for hypotension and volume contraction. Resume as clinically indicated Plan DVT prophylaxis: Anticoagulated Diet: Regular, boost CODE STATUS: DNR/DNI Admission and Anticipated Discharge Date Admission Date: September 10, 2024 Results & Data Results & Data Vital Signs (Past 12 Hours) Vital Signs Temp Pulse Resp BP Pulse Ox O2 Del Method 09/12/24 07:41 36.4 C L 58 L 16 167/79 H 93 Room Air 09/11/24 21:50 Room Air (3) CVA (cerebral vascular accident) CVA mechanism: unspecified Qualified Code(s): I63.9 - Cerebral infarction, unspecified
[2024-09-12 09:01] LABS: BUN Creatinine Ratio 24.2 (10-20); Calcium 9.3 mg/dl (8.6-10.3); Creatinine Clr Calc Pharmacy 33.8 ml/min; Potassium 3.7 mmol/L (3.5-5.1)
[2024-09-12 09:10] LABS: Hematocrit (blood only) 33.4 % (42.0-52.0); Hemoglobin 11.1 g/dl (14.0-18.0); Mean Corpuscular Hemoglobin 30.7 pg (25.0-34.0); Mean Corpuscular Hgb Conc 33.2 g/dL (32.0-36.0); Mean Corpuscular Volume 92.5 fL (80.0-100.0); Mean Platelet Volume 11.1 fL (9.4-12.4); Platelet Count 138 K/uL (130-400); RDW Coefficient of Variation 13.1 % (11.5-14.5); RDW Standard Deviation 44.1 fL (36.4-46.3); Red Blood Count 3.61 M/uL (4.70-6.10); White Blood Count 4.19 K/ul (4.8-10.8)
[2024-09-12 09:41] LABS: Basophils # (auto) 0.01 K/uL (0.00-0.20); Basophils % (auto) 0.2 %; Eosinophils # (auto) 0.01 K/uL (0.00-0.50); Eosinophils % (auto) 0.2 %; Immature Granulocytes # (auto) 0.25 K/uL (0.01-0.20); Lymphocytes # (auto) 0.14 K/uL (1.20-3.40); Lymphocytes % (auto) 3.3 %; Monocytes # (auto) 0.74 K/uL (0.11-0.59); Monocytes % (auto) 17.7 %; Neutrophils # (auto) 3.04 K/uL (1.40-6.50); Neutrophils % (auto) 72.6 %; RBC Morphology Unremarkable
--- NOTE | 2024-09-12 14:28 | Medical Student Progress Note ---
Date of Service September 12, 2024 Assessment & Plan (1) Pneumonia: Plan: Patient is an 88-year-old male with a PMH of CLL, AAA, CVA, CAD, GERD, CDK, EF of 35-40% in 2022 who presented to the hospital for SOB, cough, fever. Acute hypoxic respiratory failure likely due to entero-/rhinovirus. Superimposed right middle lobe pneumonia Enterovirus/rhinovirus positive -Sputum culture - preliminary result negative Imaging: Chest x-ray shows a right middle lobe lobar pneumonia. Plan: -May not mount an effective leukocytosis due to ongoing agents for CLL. Given this we will treat empirically for superimposed right middle lobe pneumonia, CAP, with Rocephin/azithromycin. -Due to history of C. difficile we will continue vancomycin 125Milligrams daily for PPx. -Clinically volume contracted when initially examined - additional fluids held to avoid fluid overload in the setting of reduced ejection fraction. -Dispo planning pending PT/OT evaluations (2) CLL (chronic lymphocytic leukemia): Plan: CLL Chlorambucil started 2021, discontinued January 2022. 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 He is voiding on his own at this time. 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 His BP has increased to 167/79. Restart his valsartan. -Valsartan 20mg Qam. -Carvedilol continued to prevent beta-juan withdrawal, hold if SBP less than 100 (6) CKD (chronic kidney disease): Plan: Baseline creatinine 1.31.9, although recently as high as 2.2 Admitting creatinine 1.44, now down to 1.20 Trend daily. Plan DVT prophylaxis: Anticoagulated Diet: Regular, boost CODE STATUS: DNR/DNI Admission and Anticipated Discharge Date Admission Date: September 10, 2024 Supervising Attestation Attending Physician Supervision Note: I independently interviewed and examined the patient and verified the redmond history and physical, reviewed labs and image studies and agree with findings and care plan noted above. Sitting in bed. Breathing has improved. No chest pain, abdominal pain. slight slurring in speech. Alert Ox3, Base crackles, RRR CAP - Rhinovirus+ - sputum cx negative. continue azithromycin. with negative sputum cx and normal procal - will d/c rocephin. (oral vanco for c diff proph d/t history) CMP/HTN/CAD/Hx cardioembolic CVA/PAD - continue coreg, valsartan, aspirin and apixaban. Urinary retention - h/o severe bladder outlet obstruction and urethral stricture. needed straight cath 09/11. monitor. CKD - stable CLL - follow counts. PT - Home with home health; OT - needs rehab. Will f/u with case mx in am. Subjective Patient is an 88-year-old male with a PMH of CLL, AAA, CVA, CAD, GERD, CKD, EF of 35-40% in 2022 who presented to the hospital for SOB, cough, fever He states his symptoms began last Monday and he could not get out of bed. He was experiencing constant coughing and some fatigue. He also noted some back pain which he attributes to his coughing. The cough has been dry but has transitioned into a productive cough this morning. He has not spit it out to see the color. He has been undergoing chemotherapy for CLL. He is currently on obinutuzumab monthly and venclexta, but has not taken his venclexta due to not feeling well. Overall, he states he feels pretty good today other than his cough. He had a couple of productive coughing spells early this morning. He did not spit out any of the mucus. He is hoping to get up and moving more today. Review of Systems Review of Systems: Constitutional Denies fever, chills, malaise HEENT Denies head pain, headaches. Denies eye pain, vision loss/changes, blurry vision, double vision. Denies ear pain, and recent hearing loss. Denies sore thr oat or sinus pain. Respiratory Has a productive cough accompanied by slight SOB. Denies pleuritic chest pain, wheezing CV Denies chest pain, heart palpitations, tachycardia, bradycardia, edema GI Denies abdominal pain, constipation, diarrhea, nausea, vomiting, hematochezia States he has trouble emptying his bladder. It can take a long time to empty and cannot completely void all at once. MSK Denies joint pain, muscle pain, decreased ROM, Neuro Denies altered mental status, slurred speech, numbness or tingling Psych Denies symptoms of depression or anxiety. Physical Exam Physical Exam: General: Alert and oriented X3 to person, place and day of week. Well appearing and in no acute distress HEENT: Nontender cervical lymphadenopathy palpated. Normocephalic, atraumatic, PERRLA, trachea midline, No thyromegaly appreciated Respiratory: Rhonchi auscultated in right middle lobe. No wheezes. Cardiovascular: Heart RRR without murmurs, rubs, or gallops. Symmetrical radial pulses. Abdomen: Abdomen is soft, nondistended, nontender. No hepatosplenomegaly appreciated. Normoactive bowel sounds. Negative Quezada's and McBurneys Musculoskeletal: Normal range of motion in upper extremities. Spinous processes nontender upon palpation. Neurologic: Cranial nerves II through XII are grossly intact.5/5 strength in right upper extremity. 4/5 strength in LUE which he says is consistent with his baseline from stroke. There is right sided facial drrop also consistent with prior stro ke. His speech is slow and has occasional trouble finding words. Otherwise, his speech is coherent without aphasia. Psychiatric: Appropriate mood and affect. Results & Data Vital Signs (Past 12 Hours) Vital Signs Temp Pulse Resp BP Pulse Ox O2 Del Method 09/11/24 21:50 Room Air 09/11/24 20:04 36.5 C 61 18 160/71 H 95 Room Air Resident Activity Tracking Resident Involvement: Resident Care Provided Care Provided: Adult Hospital Medicine
[2024-09-12] MEDS: VALSARTAN 80 MG TAB PO SCH (15:06)
[2024-09-13 07:50] LABS: Hematocrit (blood only) 37.2 % (42.0-52.0); Hemoglobin 11.9 g/dl (14.0-18.0); Mean Corpuscular Hemoglobin 29.5 pg (25.0-34.0); Mean Corpuscular Volume 92.1 fL (80.0-100.0); Mean Platelet Volume 11.1 fL (9.4-12.4); Platelet Count 147 K/uL (130-400); RDW Coefficient of Variation 13.2 % (11.5-14.5); RDW Standard Deviation 44.9 fL (36.4-46.3); Red Blood Count 4.04 M/uL (4.70-6.10); White Blood Count 4.02 K/ul (4.8-10.8)
[2024-09-13 08:12] LABS: Basophils # (auto) 0.02 K/uL (0.00-0.20); Basophils % (auto) 0.5 %; Eosinophils # (auto) 0.06 K/uL (0.00-0.50); Eosinophils % (auto) 1.5 %; Immature Granulocytes # (auto) 0.27 K/uL (0.01-0.20); Immature Granulocytes % (auto) 6.7 %; Lymphocytes # (auto) 0.23 K/uL (1.20-3.40); Lymphocytes % (auto) 5.7 %; Monocytes # (auto) 0.82 K/uL (0.11-0.59); Monocytes % (auto) 20.4 %; Neutrophils # (auto) 2.62 K/uL (1.40-6.50); Neutrophils % (auto) 65.2 %; Toxic Granulation 1+
--- NOTE | 2024-09-13 08:12 | Hospitalist Progress Note ---
Date of Service September 13, 2024 Assessment & Plan (1) Pneumonia: Plan: Patient is an 88-year-old male with a PMH of CLL, AAA, CVA, CAD, GERD, CDK, EF of 35-40% in 2022 who presented to the hospital for SOB, cough, fever. Acute hypoxic respiratory failure likely due to entero-/rhinovirus. Superimposed right middle lobe pneumonia Enterovirus/rhinovirus positive -Sputum culture - grew light normal angélica Imaging: Chest x-ray shows a right middle lobe lobar pneumonia. Plan: -May not mount an effective leukocytosis due to ongoing agents for CLL. Given this we will treat empirically for superimposed right middle lobe pneumonia, CAP, with Rocephin/azithromycin. -Due to history of C. difficile we will continue vancomycin 125Milligrams daily for PPx. -Dispo planning pending PT/OT evaluations (2) CLL (chronic lymphocytic leukemia): Plan: CLL Chlorambucil started 2021, discontinued January 2022. 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 He is voiding on his own at this time. 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 His BP has increased to 167/79. Restart his valsartan. -Valsartan 20mg Qam. -Carvedilol continued to prevent beta-juan withdrawal, hold if SBP less than 100 (6) CKD (chronic kidney disease): Plan: Baseline creatinine 1.31.9, although recently as high as 2.2 Admitting creatinine 1.44, now down to 1.12 Trend daily. Plan DVT prophylaxis: Anticoagulated Diet: Regular, boost CODE STATUS: DNR/DNI Admission and Anticipated Discharge Date Admission Date: September 10, 2024 Subjective Patient is an 88-year-old male with a PMH of CLL, AAA, CVA, CAD, GERD, CKD, EF of 35-40% in 2022 who presented to the hospital for SOB, cough, fever He states his symptoms began last Monday and he could not get out of bed. He was experiencing constant coughing and some fatigue. He also noted some back pain which he attributes to his coughing. He has been undergoing chemotherapy for CLL. He is currently on obinutuzumab monthly and venclexta, but has not taken his venclexta due to not feeling well. New Events: Today, he states his cough is a bit worse than yesterday. It is still productive but has not spit out any of the mucus. He states his "hip popped out of place this morning and then immediately went back in." He does have a history of bilateral hip surgeries. It is no longer bothering him at this time. Review of Systems Review of Systems: Constitutional Denies fever, chills, malaise HEENT Denies head pain, headaches. Denies eye pain, vision loss/changes, blurry vision, double vision. Denies ear pain, and recent hearing loss. Denies sore throat or sinus pain. Respiratory Has a productive cough accompanied by slight SOB. Denies pleuritic chest pain, wheezing CV Denies chest pain, heart palpitations, tachycardia, bradycardia, edema GI Denies abdominal pain, constipation, diarrhea, nausea, vomiting, hematoch ezia States he has trouble emptying his bladder. It can take a long time to empty and cannot completely void all at once. MSK Denies joint pain, muscle pain, decreased ROM, Neuro Denies altered mental status, slurred speech, numbness or tingling Psych Denies symptoms of depression or anxiety. Physical Exam Physical Exam: General: Alert and oriented X3 to person, place and day of week. Well appearing and in no acute distress HEENT: Nontender cervical lymphadenopathy palpated. Normocephalic, atraumatic, PERRLA, trachea midline, No thyromegaly appreciated Respiratory: Rhonchi auscultated in right middle lobe. No wheezes. Cardiovascular: Heart RRR without murmurs, rubs, or gallops. Symmetrical radial pulses. Abdomen: Abdomen is soft, nondistended, nontender. No hepatosplenomegaly appreciated. Normoactive bowel sounds. Negative Quezada's and McBurneys Musculoskeletal: Normal range of motion in upper extremities. Spinous processes nontender upon palpation. Neurologic: Cranial nerves II through XII are grossly intact.5/5 strength in right upper extremity. 4/5 strength in LUE which he says is consistent with his baseline from stroke. There is right sided facial drrop also consistent with prior stroke. His speech is slow and has occasional trouble finding words. Otherwise, his speech is coherent without aphasia. Psychiatric: Appropriate mood and affect. Results & Data Results & Data Vital Signs (Past 12 Hours) Vital Signs Temp Pulse Resp BP Pulse Ox O2 Del Method 09/13/24 07:18 36.8 C 55 L 16 176/75 H 94 Room Air 09/12/24 20:50 Room Air (3) CVA (cerebral vascular accident) CVA mechanism: unspecified Qualified Code(s): I63.9 - Cerebral infarction, unspecified
[2024-09-13 08:39] LABS: Calcium 9.6 mg/dl (8.6-10.3); Potassium 3.6 mmol/L (3.5-5.1)
[2024-09-13 08:45] LABS: BUN Creatinine Ratio 20.5 (10-20); Creatinine Clr Calc Pharmacy 36.2 ml/min
--- NOTE | 2024-09-13 13:56 | Discharge Summary ---
Date of Service September 13, 2024 Admission HPI Per Admitting Provider Randal is an 88-year-old male with past medical history of AAA, CVA, GERD, CKD, CAD with EF 35 to 40% 2022, nonobstructive, multifocal embolic stroke with chronic fatigue, CLL Fever x2 days, 102.0*F and 100* today. Cough and shortness of breath. Cough been present for several weeks, but seemed to get worse last 6 days. Much more weak than normal. has residual L facial drooop and weakness from prior CVA. Cough minimally productive, white. +Congestion. Trying to eat and drink on Venclexta, but +anorexia and poor intake last 3-4 days. 1 episode of nonbloody, nonmelanic loose stool Monday. Is currently on obinutuzumab montly and venclexta, but has not taken venclexta in 2 days du eto feeling poorly. Feels this is helping with his cancer, but also hard to tolerate and feels washed out COVID and Flu vaccinated last fall Has a history of some facial droop, dysarthria and weakness due to prior CVA. Denies new focal sensory/strength changes. Overall feels much weaker in the last week Medical History: Reviewed Medications: Reviewed Surgical History: Reviewed Family history: Reviewed Allergies: Reviewed Social History: No tobacco/ETOH Code Status: DNR/DNI Admission Exam Per Admitting Provider General: A&Ox3. NAD. Cooperative. Appears chronically ill, fatigued HEENT: Atraumatic, normocephalic. Vision and hearing grossly intact. Left- sided facial droop is present at rest. Some dysarthria is noted. No aphasia. Pupils equal and reactive to light Pulm: Diminished. No wheezing symmetrical chest rise. No increased work of breathing. No respiratory distress. Cardiac: RRR, -mrg. Radial pulses intact and symmetrical. Abdominal: Nontender, nondistended, soft. BS present. Principal Diagnosis CAP Discharge Exam Constitutional WD/WN, vitals as above Respiratory slightly diminished breath sounds, no wheezes, rales, rhonchi Cardiovascular RRR, no murmur, no edema Skin no rashes, warm and dry Psychiatric A+Ox3, euthymic affect Discharge Data Allergies Allergy/AdvReac Type Severity Reaction Status Date / Time KVNG Inhibitors AdvReac Mild Cough Verified 09/10/24 17:10 codeine AdvReac Mild Nausea Verified 09/10/24 17:10 Consultations 09/10/24 17:25 ED Decision to Admit Stat Hospital Course (1) Pneumonia: (2) CLL (chronic lymphocytic leukemia): (3) CVA (cerebral vascular accident): (4) BPH w urinary obs/LUTS: (5) Cardiomyopathy: (6) CKD (chronic kidney disease): Plan Patient is an 88-year-old male with a PMH of CLL, AAA, CVA, CAD, GERD, CDK, EF of 35-40% in 2022 who presented to the hospital for SOB, cough, fever. #Acute hypoxic respiratory failure likely due to entero-/rhinovirus + superimposed right middle lobe pneumonia: Enterovirus/rhinovirus positive - Sputum culture - negative - Started on Azithromycin and Rocephin while inpatient, discharged on Azithromycin and Cefpodoxime to complete 7 day course of abx. - Stable on room air at time of discharge - PT evaluated patient, felt appropriate for return to [facility] with resumption of home PT services #CLL (chronic lymphocytic leukemia): Chlorambucil started 2021, discontinued January 2022. Currently on venetoclax daily but has not been able to tolerate, and Obinutuzumab monthly Mildly leukopenic #H/o CVA (cerebral vascular accident): History of embolic CVA Continue Eliquis. Continue statin #BPH w urinary obs/LUTS: Sometimes has trouble emptying his bladder. He is voiding on his own at this time, intermittent incontinence, though this is baseline per patient. # Cardiomyopathy: Last echo with moderate global hypokinesis, EF 35-40% #Hypertension - Continue Valsartan, Carvedilol # CKD (chronic kidney disease): Baseline creatinine 1.31.9, although recently as high as 2.2 Admitting creatinine 1.44, stable Total Time Total Time Spent Total Time Spent (In Minutes): see attending attestation Discharge Plan Discharge Items Patient Disposition: Personal Senior Care Reason For Visit: PNA, ?SUPERIMPOSED RML ON ENTERO/RHINO Discharge Diagnosis: CAP Activity: Resume your previous activity Non-emergency contact: Primary Care Provider Call non-emergency contact if: you have any medication questions, your symptoms worsen and you have a fever Follow-up/Referrals: Cindi Clark DO [Primary Care Provider] - Diet: Heart Healthy Addtl Attending Provider Instructions: You were admitted to the hospital with pneumonia. You were started on antibiotics while in the hospital. Upon discharge, please complete the courses of antibiotics as noted below: - Azithromycin: Please take one 250mg tab once daily for 2 days - Cefpodoxime: Please take one 200mg table twice daily with food for 4 days No other changes were made to your medications; please continue to take them as previously prescribed. A discharge summary will be sent to your primary care physician to ensure continuity of care. Please bring this discharge summary with you to your next office appointment so that your provider can review it at that time. Medications: Your medication list has been reviewed and reconciled upon discharge to ensure accuracy and continuity of care. An updated list of all your medications is i ncluded with your hospital discharge paperwork. Please review this list closely and make note of any changes to your medications. Follow up appointments: - Make a follow up appointment with your PCP within the next week. It is very important that you follow up with them shortly after discharge from the hospital. - Keep all of your follow up appointments as already scheduled. If you cannot make an appointment, notify your provider. CONTACT YOUR PRIMARY CARE PROVIDER if you experience any of the following: - Difficulty following your treatment plan - Difficulty taking any of your medications CALL 911 OR GO TO THE EMERGENCY DEPARTMENT if you experience any of the following: - Sudden, severe abdominal pain or nausea/vomiting - Severe chest pain or chest pain that radiates to your jaw or arm - Sudden, severe shortness of breath or difficulty breathing Pending Studies at Discharge: No Stand-Alone Forms: My VocalZoom, Smoking Cessation Skilled Items Patient informed of condition?: Yes DNR: Yes Discharge Level of Care: Other Communicable Disease: Yes (community acquired pneumonia) Discharge Prognosis: Improving Lines: None Urinary Catheter: No Medications and DC Order Prescriptions: New azithromycin 250 mg Tablet 250 mg PO QAM 2 Days Qty: 2 0RF cefpodoxime 200 mg tablet 200 mg PO BID 4 Days Qty: 8 0RF Rx Instructions: must administer with a meal/food vancomycin 125 mg capsule 125 mg PO DAILY Qty: 7 0RF Continued atorvastatin 40 mg tablet 40 mg PO QAM Qty: 90 1RF cholecalciferol (vitamin D3) [Vitamin D3] 50 mcg (2,000 unit) tablet 2,000 unit PO QAM Qty: 90 3RF diclofenac sodium [Voltaren Arthritis Pain] 1 % gel 4 g topical BID Qty: 100 2RF Rx Instructions: apply to legs/knees twice daily for pain hydrocortisone 2.5 % cream 1 applic topical BID PRN (Reason: skin irritation) Qty: 20 0RF potassium chloride 10 mEq tablet extended release 10 meq PO BID Qty: 60 5RF loperamide 2 mg tablet 2 mg PO DAILY PRN (Reason: loose stools) Qty: 30 2RF amoxicillin 500 mg capsule See Rx Instructions .ROUTE .COMPLEX PRN (Reason: Other) Qty: 4 3RF Rx Instructions: "Give 4 capsule by mouth as neede for prophylaxis; give 1 hour prior to dental visit." carvedilol 3.125 mg tablet 3.125 mg PO BID Qty: 60 5RF Rx Instructions: must administer with a meal/food fluticasone propionate 50 mcg/actuation spray,suspension 2 spray INTRANASAL BID Qty: 16 5RF acetaminophen [Pain Reliever (acetaminophen)] 325 mg tablet 650 mg PO BID Qty: 60 5RF (DME) lancets [OneTouch Delica Plus Lancet] 30 gauge misc See Rx Instructions .ROUTE .MEDSUPPLY Qty: 100 0RF Rx Instructions: As directed to check sugar when feeling lightheaded (DME) lancing device with lancets [OneTouch Delica Plus Lanc Dev] Kit See Rx Instructions .ROUTE .MEDSUPPLY Qty: 1 0RF Rx Instructions: As directed to check sugar when feeling lightheaded (DME) blood sugar diagnostic Strip See Rx Instructions .ROUTE .MEDSUPPLY Qty: 100 0RF Rx Instructions: As directed to check sugar when feeling lightheaded prochlorperazine maleate 10 mg tablet 10 mg PO Q6H PRN (Reason: Nausea) valsartan 40 mg tablet 20 mg PO DAILY Qty: 90 3RF Rx Instructions: 1/2 TABLET DOSE famotidine 40 mg Tablet 40 mg PO DAILY PRN (Reason: Acid Reflux) Refresh Optive Michael-3 (PF) 0.5-1-0.5 % Dropperette 1 drp OPB BID albuterol sulfate 90 mcg/actuation HFA aerosol inhaler 2 inh inhalation QID gabapentin 100 mg capsule 100 mg PO HS apixaban 2.5 mg tablet 2.5 mg PO AMHS Venclexta 100 mg tablet 200 mg PO DAILY Rx Instructions: 2 TABLET DOSE acetaminophen 325 mg Tablet 650 mg PO Q4 MDD 3G PRN (Reason: Pain) acetaminophen 325 mg Tablet 650 mg PO Q4 MDD 3G PRN (Reason: TEMP>100) Ensure Liquid 1 ea PO QPM Rx Instructions: 1 drink daily IN EVENING Refresh Optive Michael-3 (PF) 0.5-1-0.5 % Dropperette 1 drp OPHTHALMIC (EYE) Q8 PRN (Reason: Dry Eyes) Discharge Orders: Discharge Order (Routine); Ordered 09/13/24 Ordered By: Perry Couch Admission Data Admit Date/Time: 09/10/24 17:39 Attending Provider: Izabella Valdez Admit Provider: Henry Reveles Primary Care Provider: Cindi Clark Other Providers: Henry Reveles Other Interventions: Discharge Summary Assessment (RN) Last Done: 09/13/24 14:16 Supervising Physician Co-Signing Physician Notes Attending Physician Supervision Note: I independently interviewed and examined the patient and verified the red[place] history and physical, reviewed labs and image studies and agree with findings and care plan noted above. Was also kept on oral vancomycin and should continue during the course of abx treatment and 5 days later for prophylaxis due to history of C diff. -rx sent. Urinary retention - h/o severe bladder outlet obstruction and urethral stricture. needed straight cath. Resident Activity Tracking Resident Involvement: Resident Care Provided Care Provided: Adult Hospital Medicine
[2024-09-13 14:28] VITALS: BP 121/76; PULSE 77; RESP 17; TEMP 98.1; O2SAT 93
--- NOTE | 2024-09-14 08:55 | Coding Query ---
CODING QUERY To promote full compliance with coding requirements relating to patient care, provider participation is requested in all cases of cargo worker uncertainty. Please assist us with the question(s) below: Coding Question(s): The medical record reflects the following clinical evidence: Clinical Indicators: Review of automotive project engineer consult reveals pt with moderate malnutrition evidenced by moderate chronic inadequate food/nutrient intake, severe chronic wt loss, and mild to moderate chronic loss of body fat and muscle mass Treatment: automotive project engineer consult, honor meal preferences, assist pt with menu selections and offer menu alternatives, strawberry CBE with whole milk daily Risk Factor(s): age, pneumonia, COPD, CAD, CLL Physician's Response(s): _x__Moderate malnutrition ___Other explanation of clinical findings ___Unable to determine (no explanation for clinical findings) Thank you Destini ECKERT
--- NOTE | 2024-09-14 08:56 | Coding Query ---
CODING QUERY To promote full compliance with coding requirements relating to patient care, provider participation is requested in all cases of alley cleaner uncertainty. Please assist us with the question(s) below: Coding Question(s): The medical record reflects the following clinical evidence: Clinical Indicators: WBC 2.43, RBC 3.56, plts 126. Pt receives venetoclax daily and Obinutuzumab monthly Treatment: daily CBC, hold venetoclax Risk Factor(s): CLL Physician's Response(s): ___Antineoplastic chemotherapy induced pancytopenia __x_Other explanation of clinical findings - Platelet are normal. Hemoglobin and RBC counts have been lower before starting chemo. WBC normal on admission. Decreased likely from acute illness in setting of CLL> ___Unable to determine (no explanation for clinical findings) Thank you Destini ECKERT
--- NOTE | 2024-09-14 08:58 | Coding Query ---
CODING QUERY To promote full compliance with coding requirements relating to patient care, provider participation is requested in all cases of compliance analyst uncertainty. Please assist us with the question(s) below: Coding Question(s): The medical record reflects the following clinical evidence: Clinical Indicators: H/P notes pt is encephalopathic on admission Treatment: O2 support, IV fluids, po vancomycin, IV rocephin, po azithromycin Risk Factor(s): age, CLL, pneumonia, hypoxia/acute respiratory failure Physician's Response(s): _x__Metabolic encephalopathy ___Other explanation of clinical findings ___Unable to determine (no explanation for clinical findings) Thank you Destini ECKERT
--- NOTE | 2024-09-14 09:02 | Coding Query ---
CODING QUERY To promote full compliance with coding requirements relating to patient care, provider participation is requested in all cases of medical lab specialist uncertainty. Please assist us with the question(s) below: Coding Question(s): The medical record reflects the following clinical evidence: entero-/rhinovirus + superimposed right middle lobe pneumonia: Treatment: O2 support, IV fluids, po vancomycin, IV rocephin, po azithromycin Physician's Response(s): ___Viral pneumonia d/t entero-/rhinovirus ___Community acquired pneumonia _x__Unable to detemine - procalcitonin sensitivity and specificity is low to confirm that this is not bacterial pneumonia. Thank you Destini ECKERT
== END 2024-09-13 15:41 | disposition home or self-care (01) | DRG 193 ==
LOC: ED 15:05 → SUATTDRO 17:39 → 3N 17:39

== ENCOUNTER 2025-01-15 14:13 | Inpatient (IN) ==
--- NOTE | 2025-01-15 14:28 | Emergency Department Note ---
Impression & Plan Pneumonia Admission ED Provider Note HPI: History obtained from patient and bedside RN via report. The patient is a 89-year-old gentleman with history of peripheral vascular disease, BPH, COPD, hypertension, chronic kidney disease, coronary artery disease, CLL, presents to the emergency department from his nursing facility ([facility]) over concern for generalized weakness/decline over about the past 4 days. Patient does exhibit a harsh wet cough on arrival. Patient denies any focal complaint of pain on arrival. Patient has an unclear baseline mental status but he is oriented to place and self on arrival. He is not oriented to time. Patient is in no acute distress on arrival. He does not have any focal deficits. ROS: - Per HPI Differential Diagnosis: Sepsis, pneumonia, acute dehydration/acute kidney injury, critical electrolyte abnormalities, urinary tract infection, chronic deconditioning with ambulatory dysfunction, amongst other potential pathologies. *Outpatient medications and allergy history reviewed. PE: General: Alert, frail-appearing, no acute distress HEENT: Normocephalic, trachea midline Eyes: Extraocular eye movement is intact, no scleral erythema Pulmonary: Coarse bilateral breath sounds Cardio: Regular rate and irregular rhythm GI: Abdomen is soft to palpation : No suprapubic tenderness MSK: No evidence of trauma or malformation of the extremities, no edema Skin: No evidence of rash Neuro: Alert, no focal deficits Psychiatric: Cooperative INDEPENDENT INTERPRETATIONS: environmental monitoring technician: (As interpreted by myself): - An order was placed for continuous cardiac monitoring - Patient was noted to be in atrial fibrillation with a rate of 78 EKG: (As interpreted by myself): Rate: 78 Rhythm: Atrial fibrillation Intervals: QRS 138 ms, otherwise within normal limits ST changes: No ST elevation Time: 1423 Chest x-ray: (As interpreted by myself): Bilateral lower lobe pneumonia Interventions provided in ED: - IV fluid bolus, IV doxycycline, IV Unasyn Medical Decision Making: IV was established and lab work obtained, patient was placed on manager cardiac. Lab work shows no leukocytosis, hemoglobin stable 12.7, platelet count is reduced at 90, CMP shows a mildly elevated creatinine 1.77 for which the patient was given IV fluids, urinalysis shows 2+ protein, 1+ blood, no evidence of any obvious infection. Patient was given a small IV fluid bolus here in the ED, chest x-ray suggestive of bilateral lower lobe pneumonia and therefore the patient was treated with IV doxycycline and IV Unasyn. X-ray imaging of the hips does not show any evidence of fracture. CT imaging of the head does not show any evidence of any acute intracranial process. I discussed all of the above findings with the patient and his advocate who later arrived at the bedside. She expresses concern that the patient is not safe to be discharged back to his current living situation because he [place] full [place] availability at his assisted living situation at [facility]. She is requesting admission at this time for treatment of pneumonia as well as his ambulatory dysfunction and eventual placement at the [place] [facility] [place] facility at [facility]. I did consult case management and recommendation was made to admit the patient as direct placement to the [place] [facility] [place] facility would not be feasible at this time. Given the patient's comorbidities, age, bilateral pneumonia, and mild acute kidney injury, I think it is reasonable to admit the patient to the inpatient service. I did discuss the patient's presentation with the on-call midlevel provider for [facility] and the patient was placed for admission in stable condition to the service of Dr. Covington. Consultants/Discussions held with other healthcare providers: - Hospitalist, Dr. Covington Diagnosis: 1. Bilateral pneumonia, acute 2. Elevated creatinine, acute 3. 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 of left ear 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 of right ear Chronic otitis media with effusion, bilateral PVD (peripheral vascular disease) BPH w urinary obs/LUTS (Chronic) Urinary retention (Chronic) COPD (chronic obstructive pulmonary disease) Constipation Gait abnormality AAA (abdominal aortic aneurysm) Arteriosclerosis of carotid artery Gout GERD (gastroesophageal reflux disease) Hyperlipidemia Hypertension CKD (chronic kidney disease) CAD (coronary artery disease) Nonobstructive per cardio records (pt denies cardiac cath per 01/18/22 cardio note) Cardiomyopathy EF 35-40% per 05/2023 ECHO (EF 60-65% on 2020 ECHO) CLL (chronic lymphocytic leukemia) (Acute) Osteoporosis Medical History CVA (cerebral vascular accident) History of Clostridium difficile infection Atherosclerosis Left inguinal hernia History of stroke Right bundle branch block Allergic reaction caused by a drug Carotid artery disease Aortic aneurysm Bifascicular block History of seizure Hyperlipidemia Hypertension Surgical History S/P total right hip arthroplasty History of circumcision S/P left inguinal hernia repair (03/21/22) H/O right inguinal hernia repair (08/03/20) Status post incision and drainage (06/26/20) Status post thoracic aortic aneurysm repair (2017) Hip fracture requiring operative repair History of right hip replacement History of left hip replacement Nausea and vomiting after administration of anesthetic agent Hx of nasal polypectomy History of hernia surgery History of cataract surgery History of tonsillectomy H/O thoracic aortic aneurysm repair History of carotid endarterectomy Family History Brother Colorectal cancer Stroke Family history of diabetes mellitus Father Heart disease Hypertension Stroke Other No family history of adverse response to anesthesia Denies family history of Ovarian cancer Prostate cancer Myocardial infarction Breast cancer Social History Smoking Status: Never smoker Tobacco Type: Cigarettes and Pipe Age Started Using Tobacco: 20; Age Quit Using Tobacco: 74; packs per day: 0.75; Cigarettes Per Day: 10-15 cig/day; Second Hand Exposure: No; Do You Dip or Chew Tobacco: No; Hx Alcohol Use: No Hx Substance Use: No Preferred Language: [place] Communication Ability: Effective Communication Ability Comment: Pt. [id number] bilaterally Visual Impairment: No Limitations Hearing Ability: Use of Hearing Aid Structured Cabling Technician Required: No Beliefs That Will Affect Care: None marital status: / Current Living Situation: Personal Care Facility Current Living Situation Comment: resident of [facility] current occupational status: retired How many Children do You have: 0 Feels Safe at Home: Yes Childhood Exposure to Second-Hand Smoke: Yes Dental Care, Regularly: Yes Physical Activity Frequency: 1-2 Times per Week Seatbelt Use: always Sunscreen Use: No Assistive Devices: Walker Allergies Allergies Allergy/AdvReac Type Severity Reaction Status Date / Time KVNG Inhibitors AdvReac Mild Cough Verified 01/15/25 15:08 codeine AdvReac Mild Nausea Verified 01/15/25 15:08 Home Meds Home Medications Medication Instructions Recorded Confirmed carboxymethyl 0.5 %-glycerin 1 1 drp OPB BID Dry Eyes 05/28/24 01/15/25 %-polysorb 80 0.5 %-PF eye dropperette (Refresh Optive Michael-3 (PF)) famotidine 40 mg tablet 40 mg PO DAILY PRN Acid Reflux 05/28/24 01/15/25 prochlorperazine maleate 10 mg 10 mg PO Q6H PRN Nausea 06/19/24 01/15/25 tablet acetaminophen 325 mg tablet 650 mg PO Q4 PRN Pain 09/10/24 01/15/25 acetaminophen 325 mg tablet 650 mg PO Q4 PRN TEMP>100 09/10/24 01/15/25 albuterol sulfate 90 mcg/actuation 2 inh inhalation QID PRN shortness 09/10/24 01/15/25 aerosol inhaler of breath or cough apixaban 2.5 mg tablet 2.5 mg PO AMHS 09/10/24 01/15/25 carboxymethyl 0.5 %-glycerin 1 1 drp ophthalmic (eye) Q8 PRN Dry 09/10/24 01/15/25 %-polysorb 80 0.5 %-PF eye Eyes dropperette (Refresh Optive Michael-3 (PF)) amoxicillin 500 mg capsule 2,000 mg PO DIRECTED PRN Dental 01/15/25 01/15/25 Appointment Previous Rx's Medication Instructions Recorded blood sugar diagnostic #100 ea 10/09/23 lancets 30 gauge (OneTouch Delica #100 ea 10/09/23 Plus Lancet) lancing device with lancets kit #1 ea 10/09/23 (Baraventouch Delica Plus Lancing Device kit) valsartan 40 mg tablet 20 mg (1/2 x 40 mg) PO DAILY #90 01/01/24 tabs cholecalciferol (vitamin D3) 50 2,000 unit PO QAM #90 tabs 05/14/24 mcg (2,000 unit) tablet (Vitamin D3) diclofenac sodium 1 % topical gel 4 g topical BID #100 grams 05/14/24 (Voltaren Arthritis Pain) hydrocortisone 2.5 % topical cream 1 applic topical BID PRN skin 05/29/24 irritation #20 grams potassium chloride 10 mEq 10 meq PO BID #60 tabs 05/29/24 tablet,extended release loperamide 2 mg tablet 2 mg PO DAILY PRN loose stools #30 06/11/24 tabs atorvastatin 40 mg tablet 40 mg PO QAM #90 tabs 10/29/24 carvedilol 3.125 mg tablet 3.125 mg PO BID #60 tabs 10/29/24 food supplemt, lactose-reduced 1 ea PO QPM #5,688 mL 11/13/24 (Ensure oral liquid) solifenacin 5 mg tablet (Vesicare) 5 mg PO QAM #90 tabs 11/13/24 gabapentin 100 mg capsule 100 mg PO HS #30 caps 12/16/24 acetaminophen 325 mg tablet (Pain 650 mg (2 x 325 mg) PO BID pain 01/01/25 Reliever (acetaminophen)) #60 tabs fluticasone fur. 100 mcg-umeclid 1 inh inhalation DAILY #60 ea 01/01/25 62.5 mcg-vilant 25 mcg inhalat.powder (Trelegy Ellipta) montelukast 10 mg tablet 10 mg PO DAILY #30 tabs 01/01/25 fluticasone propionate 50 2 spray intranasal BID Allergic 01/15/25 mcg/actuation nasal Symptoms #16 grams spray,suspension Results & Data (ED) Vital Signs Vital Signs - 24 hr 01/15/25 14:24 01/15/25 14:24 01/15/25 14:31 Temperature 37.1 C Temperature Source Oral Pulse Rate 73 72 Pulse Rate [Apical] Respiratory Rate 15 24 Respiratory Effort / Characteristics Non-Labored Spontaneous Respiratory Depth Normal Respiratory Pattern Regular Blood Pressure 135/68 Blood Pressure [Right Arm] Blood Pressure Mean 90 Blood Pressure Mean [Right Arm] Blood Pressure Position Semi-fowlers Blood Pressure Position [Right Arm] Pulse Oximetry 92 94 92 Oxygen Delivery Method Room Air Room Air Room Air Sepsis Recent Fever Within 48 Hours No Sepsis New/Unexplained Change in Mental Status Yes Sepsis Action Taken by Nursing No Action Required 01/15/25 14:38 01/15/25 15:01 01/15/25 17:08 Temperature Temperature Source Pulse Rate 71 Pulse Rate [Apical] 68 77 Respiratory Rate 24 18 Respiratory Effort / Characteristics Non-Labored Spontaneous Respiratory Depth Normal Respiratory Pattern Regular Blood Pressure Blood Pressure [Right Arm] 116/56 L 130/75 Blood Pressure Mean Blood Pressure Mean [Right Arm] 76 93 Blood Pressure Position Blood Pressure Position [Right Arm] Semi-fowlers Pulse Oximetry 93 97 Oxygen Delivery Method Room Air Room Air Sepsis Recent Fever Within 48 Hours Sepsis New/Unexplained Change in Mental Status Sepsis Action Taken by Nursing 01/15/25 17:55 01/15/25 18:00 Temperature Temperature Source Pulse Rate Pulse Rate [Apical] 62 63 Respiratory Rate 20 24 Respiratory Effort / Characteristics Respiratory Depth Respiratory Pattern Blood Pressure Blood Pressure [Right Arm] 131/61 140/68 Blood Pressure Mean Blood Pressure Mean [Right Arm] 84 92 Blood Pressure Position Blood Pressure Position [Right Arm] Semi-fowlers Pulse Oximetry 94 92 Oxygen Delivery Method Room Air Room Air Sepsis Recent Fever Within 48 Hours Sepsis New/Unexplained Change in Mental Status Sepsis Action Taken by Nursing Laboratory Data 01/15/25 14:30 01/15/25 14:30 Lab Results 01/15/25 01/15/25 01/15/25 Range/Units 14:30 14:31 16:33 WBC 6.16 (4.8-10.8) K/ul RBC 4.30 L (4.70-6.10) M/uL Hgb 12.7 L (14.0-18.0) g/dl Hct 39.1 L (42.0-52.0) % MCV 90.9 (80.0-100.0) fL MCH 29.5 (25.0-34.0) pg MCHC 32.5 (32.0-36.0) g/dL RDW Std Deviation 48.5 H (36.4-46.3) fL RDW Coeff of Jewel 14.5 (11.5-14.5) % Plt Count 90 L (130-400) K/uL MPV 12.2 (9.4-12.4) fL Immature Gran % (Auto) 7.6 % Neut % (Auto) 60.8 % Lymph % (Auto) 3.4 % [place] % (Auto) 26.9 % Eos % (Auto) 0.2 % Baso % (Auto) 1.1 % Neut # (Auto) 3.74 (1.40-6.50) K/uL Lymph # (Auto) 0.21 L (1.20-3.40) K/uL [place] # (Auto) 1.66 H (0.11-0.59) K/uL Eos # (Auto) 0.01 (0.00-0.50) K/uL Baso # (Auto) 0.07 (0.00-0.20) K/uL Immature Gran # (Auto) 0.47 H (0.01-0.20) K/uL Toxic Granulation 2+ Echinocytes 1+ PT 11.6 (9.0-12.0) Seconds INR 1.1 (0.9-1.1) Sodium 140 (136-145) mmol/L Potassium 3.7 (3.5-5.1) mmol/L Chloride 103 (98-107) mmol/L Carbon Dioxide 28 (21-32) mmol/L Anion Gap 9 (3-11) BUN 37 H (6-23) mg/dl Creatinine 1.77 H (0.6-1.4) mg/dl Est Cr Clr Drug Dosing 22.9 ml/min eGFR 36.71 BUN/Creatinine Ratio 20.9 H (10-20) Glucose 186 H (70-99(Fasting)) mg/dl Calcium 10.4 H (8.6-10.3) mg/dl Total Bilirubin 0.7 (0.2-1.0) mg/dl AST 24 (13-39) U/L ALT 28 (7-52) U/L Alkaline Phosphatase 87 (34-104) U/L Total Protein 7.4 (6.0-8.3) gm/dl Albumin 3.8 (3.4-5.0) gm/dl Globulin 3.6 (2.5-4.0) gm/dl Albumin/Globulin Ratio 1.1 (0.9-2) Lipase 19 (11-82) U/L Urine Color Yellow Urine Appearance Cloudy A (Clear) Urine pH 5.5 (4.5-7.5) Ur Specific [place] 1.021 (1.000-1.030) Urine Protein 2+ H (Negative) Urine Glucose (UA) Trace H (Negative) Urine Ketones Negative (Negative) Urine Blood 1+ H (Negative) Urine Nitrite Negative (Negative) Urine Bilirubin Negative (Negative) Urine Urobilinogen Negative (Negative) Ur Leukocyte Esterase Negative (Negative) Urine WBC (Auto) 0-5 (0-5) /hpf Urine RBC (Auto) 0-2 (0-2) /hpf U Hyaline Cast (Auto) >20 H (0-2) /lpf U Epithel Cells (Auto) 3-5 H (0-2) /hpf Urine Bacteria (Auto) None Seen (None Seen) Hyaline Casts Present A (None Presnt) /lpf SARS-CoV-2 (PCR) NEGATIVE (Negative) Influenza Type A (PCR) Negative (Neg) Influenza Type B (PCR) Negative (Neg) RSV (RT-PCR) Negative (Neg) Administered Medications Discontinued Medications Sodium Chloride (Nss) 500 mls @ 999 mls/hr IV .Q31M ONE Stop: 01/15/25 14:56 Last Infusion: 01/15/25 15:46 Dose: Infused Documented By: Admin: 01/15/25 14:59 Dose: 999 mls/hr Documented By: LAKEISHA Ampicillin Sodium/Sulbactam Sodium (Unasyn) 3,000 mg in 100 mls @ 200 mls/hr IV NOW STA Stop: 01/15/25 17:30 Last Infusion: 01/15/25 18:25 Dose: Infused Documented By: Admin: 01/15/25 17:53 Dose: 200 mls/hr Documented By: LAKEISHA Doxycycline Hyclate 100 mg/ (Dextrose) 100 mls @ 50 mls/hr IV NOW STA Stop: 01/15/25 19:00 Last Admin: 01/15/25 20:06 Dose: 50 mls/hr Documented By: ENIO Imaging Data Radiologist's Impression: Chest X-Ray 01/15/25 14:25 XR chest 1V portable CLINICAL HISTORY: weak COMPARISON STUDY: 09/10/2024 FINDINGS: Stable thoracic aortic graft with stable aneurysm. Stable cardiomegaly without pulmonary vascular congestion. There is an interval small area of patchy opacity at the right midlung and also at the left lung base. No other consolidation or pleural effusion. No pneumothorax. IMPRESSION: Bilateral pneumonia. Follow-up to resolution recommended to rule out underlying nodule. ACT 112: Positive. There are findings on this exam that require communication between the performing entity and the patient following Patient Test Result [place] Act [place] Act 112) guidelines. Electronically signed by: Greg Mueller M.D. 01/15/2025 2:[address] 01/15/25 14:25 CT head/brain wo con CLINICAL HISTORY: 89 years-old Male with weak. Acute weakness TECHNIQUE: Multiple axial CT images of the head were obtained without contrast. A dose lowering technique was utilized adhering to the principles of ALARA. CT DOSE: 703.85 mGy.cm COMPARISON: 05/28/2024 FINDINGS: No acute intracranial hemorrhage, midline shift, intracranial mass, hydrocephalus, territorial ischemia or abnormal extra-axial collection. Involutional changes with chronic microvascular ischemic disease redemonstrated. Encephalomalacia of the left parieto-occipital distribution again seen. The calvarium is intact. Polypoid mucosal thickening of the nasal turbinates measures up to approximately 2.5 cm. [id number] mucosal thickening of the paranasal sinuses with left greater than right mastoid effusions. Left middle ear effusion. IMPRESSION: 1. No acute intracranial abnormality. 2. 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 3. Chronic findings as above ACT 112: Negative or not required by law. The above report was generated using voice recognition software. It may contain grammatical, syntax or spelling errors. Electronically signed by: Daryl Young M.D. 01/15/2025 3:17 PM Hip X-Ray 01/15/25 14:55 XR hip LT min 2V CLINICAL HISTORY: recent fall, L hip pain COMPARISON: 02/14/2024 FINDINGS: Left hip prosthesis and proximal femoral plate and cerclage wires are stable with no hardware complication seen. Stable old healed fracture proximal left femur. No acute fracture or dislocation seen. IMPRESSION: No acute fracture seen. ACT 112: Negative or not required by law. Electronically signed by: Greg Mueller M.D. 01/15/2025 3:57 PM Discharge Plan Visit Data Chief Complaint: Weakness Stated Complaint: WEAKNESS ED Provider: Shyam Benites Discharge Problem: Pneumonia Patient Disposition: Admitted As Inpatient Discharge Instructions Interventions: ED Discharge Assessment Last Done: 01/15/25 20:49
--- NOTE | 2025-01-15 14:54 | XRay Report ---
XR chest 1V portable CLINICAL HISTORY: weak COMPARISON STUDY: 09/10/2024 FINDINGS: Stable thoracic aortic graft with stable aneurysm. Stable cardiomegaly without pulmonary va scular congestion. There is an interval small area of patchy opacity at the right midlung and also at the left lung base. No other consolidation or pleural effusion. No pneumothorax. IMPRESSION: Bilateral pneumonia. Follow-up to resolution recommended to rule out underlying nodule. ACT 112: Positive. There are findings on this exam that require communication between the performing entity and the patient following Patient Test Result [place] Act [place] Act 112) guidelines. Electronically signed by: Greg Mueller M.D. 01/15/2025 2:53 PM
[2025-01-15] MEDS: SODIUM CHLORIDE 0.9% 500 ML IV ONE (14:59)
[2025-01-15 15:05] LABS: Albumin Level 3.8 gm/dl (3.4-5.0); Bilirubin,Total 0.7 mg/dl (0.2-1.0); Calcium 10.4 mg/dl (8.6-10.3); Potassium 3.7 mmol/L (3.5-5.1)
[2025-01-15 15:11] LABS: Albumin Globulin Ratio 1.1 (0.9-2); BUN Creatinine Ratio 20.9 (10-20); Creatinine Clr Calc Pharmacy 22.9 ml/min; Globulin 3.6 gm/dl (2.5-4.0); Hematocrit (blood only) 39.1 % (42.0-52.0); Hemoglobin 12.7 g/dl (14.0-18.0); Mean Corpuscular Hemoglobin 29.5 pg (25.0-34.0); Mean Corpuscular Hgb Conc 32.5 g/dL (32.0-36.0); Mean Corpuscular Volume 90.9 fL (80.0-100.0); Mean Platelet Volume 12.2 fL (9.4-12.4); Platelet Count 90 K/uL (130-400); RDW Coefficient of Variation 14.5 % (11.5-14.5); RDW Standard Deviation 48.5 fL (36.4-46.3); Total Protein 7.4 gm/dl (6.0-8.3); White Blood Count 6.16 K/ul (4.8-10.8)
--- NOTE | 2025-01-15 15:18 | CT Scan Report ---
CT head/brain wo con CLINICAL HISTORY: 89 years-old Male with weak. Acute weakness TECHNIQUE: Multiple axial CT images of the head were obtained without contrast. A dose lowering tech nique was utilized adhering to the principles of ALARA. CT DOSE: 703.85 mGy.cm COMPARISON: 05/28/2024 FINDINGS: No acute intracranial hemorrhage, midline shift, intracranial mass, hydrocephalus, territorial ischem ia or abnormal extra-axial collection. Involutional changes with chronic microvascular ischemic disea se redemonstrated. Encephalomalacia of the left parieto-occipital distribution again seen. The calvarium is intact. Polypoid mucosal thickening of the nasal turbinates measures up to approxim ately 2.5 cm. [id number] mucosal thickening of the paranasal sinuses with left greater than rig ht mastoid effusions. Left middle ear effusion. IMPRESSION: 1. No acute intracranial abnormality. 2. 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 3. Chronic findings as above ACT 112: Negative or not required by law. The above report was generated using voice recognition software. It may contain grammatical, syntax o r spelling errors. Electronically signed by: Daryl Young M.D. 01/15/2025 3:17 PM
[2025-01-15 15:31] LABS: Influenza A virus by PCR Negative (Neg); Influenza B virus by PCR Negative (Neg); RSV by PCR Negative (Neg); SARS CoV2 RNA(COVID-19) Ceph NEGATIVE (Negative)
[2025-01-15 15:57] LABS: INR 1.1 (0.9-1.1); Prothrombin Time 11.6 Seconds (9.0-12.0)
--- NOTE | 2025-01-15 15:59 | XRay Report ---
XR hip LT min 2V CLINICAL HISTORY: recent fall, L hip pain COMPARISON: 02/14/2024 FINDINGS: Left hip prosthesis and proximal femoral plate and cerclage wires are stable with no hardw are complication seen. Stable old healed fracture proximal left femur. No acute fracture or dislocati on seen. IMPRESSION: No acute fracture seen. ACT 112: Negative or not required by law. Electronically signed by: Greg Mueller M.D. 01/15/2025 3:57 PM
[2025-01-15 16:02] LABS: Basophils # (auto) 0.07 K/uL (0.00-0.20); Basophils % (auto) 1.1 %; Echinocytes 1+; Eosinophils # (auto) 0.01 K/uL (0.00-0.50); Eosinophils % (auto) 0.2 %; Immature Granulocytes # (auto) 0.47 K/uL (0.01-0.20); Immature Granulocytes % (auto) 7.6 %; Lymphocytes # (auto) 0.21 K/uL (1.20-3.40); Lymphocytes % (auto) 3.4 %; Monocytes # (auto) 1.66 K/uL (0.11-0.59); Monocytes % (auto) 26.9 %; Neutrophils # (auto) 3.74 K/uL (1.40-6.50); Neutrophils % (auto) 60.8 %; Toxic Granulation 2+
[2025-01-15 17:12] LABS: Appearance Urine Cloudy (Clear); Bacteria Urine Automated None Seen (None Seen); Bilirubin Urine Negative (Negative); Blood Urine 1+ (Negative); Cast Urine Automated >20 /lpf (0-2); Color Urine Yellow; Glucose Urine UA Trace (Negative); Hyaline Casts Urine Present /lpf (None Presnt); Ketones Urine Negative (Negative); Leukocyte Esterase Urine Negative (Negative); Nitrite Urine Negative (Negative); Protein Urine 2+ (Negative); RBC Urine Automated 0-2 /hpf (0-2); Specific Gravity Urine 1.021 (1.000-1.030); Urobilinogen Urine Negative (Negative); WBC Urine Automated 0-5 /hpf (0-5); pH Urine 5.5 (4.5-7.5)
[2025-01-15] MEDS: AMPICILLIN/SULBACTAM SOD 3,000 MG/100 ML BAG IV STA (17:53)
[2025-01-15] MEDS ORDERED: POLYETHYLENE (MIRALAX) 17 GM PACK PO PRN (18:05)
--- NOTE | 2025-01-15 18:31 | Electrocardiogram Report ---
Test Reason : Blood Pressure : */* mmHG Vent. Rate : 78 BPM Atrial Rate : * BPM P-R Int : * ms QRS Dur : 138 ms QT Int : 406 ms P-R-T Axes : * -17 28 degrees QTcB Int : 462 ms Normal sinus rhythm Right bundle branch block Minimal voltage criteria for LVH, may be normal variant Possible Inferior infarct (cited on or before 21-Jul-2023) Abnormal ECG When compared with ECG of 10-Sep-2024 15:47, T wave inversion now evident in Anterior leads Confirmed by [place] ([id number]) on 01/15/2025 6:31:43 PM Referred By: REFERRED SELF Confirmed By: [place]
--- NOTE | 2025-01-15 18:36 | History & Physical Report ---
Date of Service January 15, 2025 Assessment & Plan (1) Bilateral pneumonia: (2) CKD (chronic kidney disease): (3) Cellulitis and abscess of left leg: (4) Weakness: (5) History of stroke: Plan This is an 89 year old gentleman with past medical history of GERD, AAA, hx CVA, HTN, HLD, BPH, PVD who presented to the ED on 01/15 from an assisted living facility for weakness. #Pneumonia Patient with productive cough x 4 days along with weakness/confusion. CXR: bilateral pneumonia CBC w/o leukocytosis. BMP w/ stable electrolytes, creatinine 1.77 BC pending, sputum culture pending, MRSA swab pending Consult speech in event this is related to aspiration. s/p Doxy & Unasyn given in ED --> continue upon admission to continue to cover for atypicals in event of aspiration Mucinex BID, Duoneb prn for shortness of breath or wheezing. Continue home inhalers and Montelukast for hx of COPD AM CBC/BMP #Cellulitis Patient appears to have mild cellulitis on left anterior quiñonez w/ open wound. Wound does not appear infected. Suspect odor secondary to saturated bandage Continue Doxy/Unasyn Monitor for improvement. #Weakness Secondary to pneumonia PT/OT consulted, appreciate recommendations Per Advocate - looking for skilled placement upon discharge. #CKD/SANDY Patient w/ hx of CKD, baseline creatinine recently appears 1-2. In past ~2-2.2 Creatinine upon admission 1.77 s/p 1 L NSS Continue potassium supplements Repeat BMP in AM #CAD/HTN On Carvedilol, Valsartan, Atorvastatin outpatient. Chronic Eliquis 2.5mg BID for hx of CVA Most recent Echo 05/2023 - EF 35-40% Caution IVF given reduced EF. Chronic conditions: Neuropathy: Gabapentin DVT prophylaxis: Eliquis 2.5mg twice daily (on for hx of CVA) Code: full code Case discussed with patient advocate at time of admission Case discussed with Dr. Covington at time of admission History of Present Illness Primary Care Provider: Cindi Clark DO This is an 89 year old gentleman with past medical history of GERD, AAA, hx CVA, HTN, HLD, BPH, PVD who presented to the ED on 01/15 from an assisted living facility for weakness. Patient was seen and examined this evening with his career developer at bedside. Patient poor historian and majority of history comes from patient advocate. Patient with a chronic cough for about a year but within the last about 4 days he has developed a productive wet cough. Patient denies chest pain or shortness of breath. Reports he has "pain all over" but would not specify further. Patient advocate reports he has had increased confusion and had slid off of his bed at his care facility. Advocate is concerned about his care. reports patient is mostly independent at baseline and works with PT/OT at his home. She was unaware of his bruising on his right leg and skin tear on his left leg. He denies any GI complaints or urinary symptoms. Patient does have a history of CLL and recently saw oncology who had noted him to be in remission. Patient also to see pulm outpatient given recurrent pneumonia. While in the ED, patient had a stable CBC, BMP w/ mild elevation of creatinine at 1.77. His urinalysis was negative. He had a negative left hip x ray and negative head CT. His CXR was concerning for bilateral pneumonia. He was given Doxycycline and Unasyn to cover for atypical coverage given a concern of aspiration. He was given 1 L of NSS and blood cultures are pending. Code discussion took place with patient and he confirms he is a full code. Per the patient advocate - discussion of palliative care has take place outpatient but they are not ready to move forward with that yet. Allergies Allergy/AdvReac Type Severity Reaction Status Date / Time KVNG Inhibitors AdvReac Mild Cough Verified 01/15/25 15:08 codeine AdvReac Mild Nausea Verified 01/15/25 15:08 Home Medications Medication Instructions Recorded Confirmed Type blood sugar diagnostic #100 ea 10/09/23 12/19/24 Rx lancets 30 gauge (OneTouch Delica #100 ea 10/09/23 12/19/24 Rx Plus Lancet) lancing device with lancets kit #1 ea 10/09/23 12/19/24 Rx (OneTouch Delica Plus Lancing Device kit) valsartan 40 mg tablet 20 mg (1/2 x 40 mg) PO DAILY #90 01/01/24 01/15/25 Rx tabs cholecalciferol (vitamin D3) 50 2,000 unit PO QAM #90 tabs 05/14/24 01/15/25 Rx mcg (2,000 unit) tablet (Vitamin D3) diclofenac sodium 1 % topical gel 4 g topical BID #100 grams 05/14/24 01/15/25 Rx (Voltaren Arthritis Pain) carboxymethyl 0.5 %-glycerin 1 1 drp OPB BID Dry Eyes 05/28/24 01/15/25 History %-polysorb 80 0.5 %-PF eye dropperette (Refresh Optive Michael-3 (PF)) famotidine 40 mg tablet 40 mg PO DAILY PRN Acid Reflux 05/28/24 01/15/25 History hydrocortisone 2.5 % topical cream 1 applic topical BID PRN skin 05/29/24 01/15/25 Rx irritation #20 grams potassium chloride 10 mEq 10 meq PO BID #60 tabs 05/29/24 01/15/25 Rx tablet,extended release loperamide 2 mg tablet 2 mg PO DAILY PRN loose stools #30 06/11/24 01/15/25 Rx tabs prochlorperazine maleate 10 mg 10 mg PO Q6H PRN Nausea 06/19/24 01/15/25 History tablet acetaminophen 325 mg tablet 650 mg PO Q4 PRN Pain 09/10/24 01/15/25 History acetaminophen 325 mg tablet 650 mg PO Q4 PRN TEMP>100 09/10/24 01/15/25 History albuterol sulfate 90 mcg/actuation 2 inh inhalation QID PRN shortness 09/10/24 01/15/25 History aerosol inhaler of breath or cough apixaban 2.5 mg tablet 2.5 mg PO AMHS 09/10/24 01/15/25 History carboxymethyl 0.5 %-glycerin 1 1 drp ophthalmic (eye) Q8 PRN Dry 09/10/24 01/15/25 History %-polysorb 80 0.5 %-PF eye Eyes dropperette (Refresh Optive Michael-3 (PF)) atorvastatin 40 mg tablet 40 mg PO QAM #90 tabs 10/29/24 01/15/25 Rx carvedilol 3.125 mg tablet 3.125 mg PO BID #60 tabs 10/29/24 01/15/25 Rx food supplemt, lactose-reduced 1 ea PO QPM #5,688 mL 11/13/24 01/15/25 Rx (Ensure oral liquid) solifenacin 5 mg tablet (Vesicare) 5 mg PO QAM #90 tabs 11/13/24 01/15/25 Rx gabapentin 100 mg capsule 100 mg PO HS #30 caps 12/16/24 01/15/25 Rx acetaminophen 325 mg tablet (Pain 650 mg (2 x 325 mg) PO BID pain 01/01/25 01/15/25 Rx Reliever (acetaminophen)) #60 tabs fluticasone fur. 100 mcg-umeclid 1 inh inhalation DAILY #60 ea 01/01/25 01/15/25 Rx 62.5 mcg-vilant 25 mcg inhalat.powder (Trelegy Ellipta) montelukast 10 mg tablet 10 mg PO DAILY #30 tabs 01/01/25 01/15/25 Rx amoxicillin 500 mg capsule 2,000 mg PO DIRECTED PRN Dental 01/15/25 01/15/25 History Appointment fluticasone propionate 50 2 spray intranasal BID Allergic 01/15/25 01/15/25 Rx mcg/actuation nasal Symptoms #16 grams spray,suspension Past Med/Surg History Problem List (Updated 01/15/25 @ 18:26 by Audra Daily PA-C) Weakness Cellulitis and abscess of left leg Bilateral pneumonia Sensorineural hearing loss (SNHL) of right ear with restricted hearing of left ear 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 of right ear Chronic otitis media with effusion, bilateral PVD (peripheral vascular disease) BPH w urinary obs/LUTS (Chronic) Urinary retention (Chronic) COPD (chronic obstructive pulmonary disease) Constipation Gait abnormality AAA (abdominal aortic aneurysm) Arteriosclerosis of carotid artery Gout GERD (gastroesophageal reflux disease) Hyperlipidemia Hypertension CKD (chronic kidney disease) CAD (coronary artery disease) Nonobstructive per cardio records (pt denies cardiac cath per 01/18/22 cardio note) Cardiomyopathy EF 35-40% per 05/2023 ECHO (EF 60-65% on 2020 ECHO) CLL (chronic lymphocytic leukemia) (Acute) Osteoporosis Medical History CVA (cerebral vascular accident) History of Clostridium difficile infection Atherosclerosis Left inguinal hernia History of stroke Right bundle branch block Allergic reaction caused by a drug Carotid artery disease Aortic aneurysm Bifascicular block History of seizure Hyperlipidemia Hypertension Surgical History S/P total right hip arthroplasty History of circumcision S/P left inguinal hernia repair (03/21/22) H/O right inguinal hernia repair (08/03/20) Status post incision and drainage (06/26/20) Status post thoracic aortic aneurysm repair (2017) Hip fracture requiring operative repair History of right hip replacement History of left hip replacement Nausea and vomiting after administration of anesthetic agent Hx of nasal polypectomy History of hernia surgery History of cataract surgery History of tonsillectomy H/O thoracic aortic aneurysm repair History of carotid endarterectomy Family History Brother Colorectal cancer Stroke Family history of diabetes mellitus Father Heart disease Hypertension Stroke Other No family history of adverse response to anesthesia Denies family history of Ovarian cancer Prostate cancer Myocardial infarction Breast cancer Social History Smoking Status: Never smoker Tobacco Type: Cigarettes and Pipe Age Started Using Tobacco: 20; Age Quit Using Tobacco: 74; packs per day: 0.75; Cigarettes Per Day: 10-15 cig/day; Second Hand Exposure: No; Do You Dip or Chew Tobacco: No; Hx Alcohol Use: No Hx Substance Use: No Preferred Language: Belgian Communication Ability: Effective Communication Ability Comment: Pt. AGUA CALIENTE bilaterally Visual Impairment: No Limitations Hearing Ability: Use of Hearing Aid Integration Lead Required: No Beliefs That Will Affect Care: None marital status: / Current Living Situation: Personal Care Facility Current Living Situation Comment: resident of [facility] current occupational status: retired How many Children do You have: 0 Feels Safe at Home: Yes Childhood Exposure to Second-Hand Smoke: Yes Dental Care, Regularly: Yes Physical Activity Frequency: 1-2 Times per Week Seatbelt Use: always Sunscreen Use: No Assistive Devices: Walker Physical Exam Constitutional: WD/WN, vitals as above Eyes: PERRL, conjunctivae normal, anicteric sclerae Respiratory: diminished w/ rhonchi throughout Cardiovascular: RRR, no murmur, no edema Skin: left quiñonez ecchymosis w/ skin tear right quiñonez w/ bleeding skin tear, significant odor when removed bandage, appears with erythema and warm to touch. Neurologic: PERRL, EOMI, accommodation nl, no face palsy, no dysarthria Psychiatric: A+Ox3, euthymic affect Results & Data Results & Data Vital Signs (Past 12 Hours) Vital Signs Temp Pulse Pulse Resp BP BP Pulse Ox 01/15/25 17:55 62 20 131/61 94 01/15/25 17:08 77 18 130/75 97 01/15/25 15:01 68 24 116/56 L 93 01/15/25 14:38 71 01/15/25 14:31 72 24 92 01/15/25 14:24 94 01/15/25 14:24 37.1 C 73 15 135/68 92 O2 Del Method 01/15/25 17:55 Room Air 01/15/25 17:08 Room Air 01/15/25 15:01 Room Air 01/15/25 14:38 01/15/25 14:31 Room Air 01/15/25 14:24 Room Air 01/15/25 14:24 Room Air Supervising Physician Co-Signing Physician Notes Patient was seen and examined independently I discussed the case with Audra KHAN I reviewed pertinent past medical social family history and also the plan of care and agree with the plan of care. Patient presents from extended-care facility with productive cough and lower extremity wounds. Reportedly having cough and confusion consistent with metabolic encephalopathy. pt has scabs on legs, he is mildly confused Lungs have a coarse rhonchorous cough. No defined focal air loss there is fluid in his fissure on chest x-ray. Patient had a speech evaluation during his last hospital stay and he was safe for swallowing. However given the appearance of this this could be aspiration ammonia and a speech consult may be warranted Initiated on Unasyn and doxycycline cultures obtained will be continued on the same. Wound care for lower extremities and consider speech consult Any exceptions will be noted below PG Care Time/CCT Total # of Minutes Spent Total Time Spent with Patient: Total time spent is greater than 50% in coordination of care (as documented) at patient's floor/unit and/or counseling patient: Coding Level of Care Code 51436 INT INP/OBS CARE 3/75MIN Diagnoses Bilateral pneumonia J18.9 CKD (chronic kidney disease) N18.9 Cellulitis and abscess of left leg L03.116; L02.416 Weakness R53.1 History of stroke Z86.73
[2025-01-15] MEDS: DOXYCYCLINE HYCLATE 100 MG in DEXTROSE 5% MINI-B 100 ML IV STA (20:06)
[2025-01-15] MEDS ORDERED: ALBUTEROL HFA 8 GM INHALER INH PRN (20:50)
[2025-01-15] MEDS ORDERED: [UNRECOGNIZED DRUG - OTHER] OP PRN (20:50)
[2025-01-15] MEDS ORDERED: PROCHLORPERAZINE MALEATE 10 MG TAB PO PRN (20:50)
[2025-01-15] MEDS ORDERED: HYDROCORTISONE 2.5% CR 30 GM TUBE EXT PRN (20:50)
[2025-01-15] MEDS ORDERED: LOPERAMIDE HCL 2 MG CAP PO PRN (20:59)
[2025-01-15] MEDS: guaiFENesin 600 MG TABCR PO SCH (21:27)
[2025-01-15] MEDS: GABAPENTIN 100 MG CAP PO SCH (21:28)
[2025-01-15] MEDS: carvediloL 3.125 MG TAB PO SCH (21:28)
[2025-01-15] MEDS: POTASSIUM CHLORIDE 10 MEQ TABCR PO SCH (21:28)
[2025-01-15] MEDS: APIXABAN 2.5 MG TAB PO SCH (21:29)
[2025-01-15] MEDS: FLUTICASONE PROPIONATE NA SPR 16 GM BTL NAE SCH (21:31)
[2025-01-15] MEDS: ARTIFICIAL TEARS OP SCH (21:34)
--- OUTSIDE RECORDS SUMMARY | 2025-01-16 00:19 | External Medical Summary ---
Author Name Unknown Address Unknown Organization [id number]:[facility] [address] [place] [id number] Laboratory Report Ordering Provider Test Date Status LEILANI WEST 12/30/2024 07:44:00 Final Observation Date Value Abnormality Reference (Units ) Status BUN 12/30/2024 07:44:00 27 Above high normal 6-20 (mg/dL) Final Creatinine 12/30/2024 07:44:00 1.5 Above high normal 0.6-1.2 (mg/dL) Final Glomerular filtration rate/1.73 sq M.predicted [Volume Rate/Area] in Serum, Plasma or Blood by Creatinine-based formula (CKD-EPI) 12/30/2024 07:44:00 46 Below low normal >=60 (mL/min) Final eGFR is calculated based on the CKD-EPI 2020 equation. Sodium 12/30/2024 07:44:00 143 135-146 (m mol/L) Final Potassium 12/30/2024 07:44:00 4.1 3.5-5.1 (m mol/L) Final Cl 12/30/2024 07:44:00 104 98-107 (mm ol/L) Final CO2 12/30/2024 07:44:00 27 22-32 (mmo l/L) Final Anion gap 12/30/2024 07:44:00 12 7-15 (mmol /L) Final Glucose 12/30/2024 07:44:00 80 70-120 (mg /dL) Final Albumin 12/30/2024 07:44:00 4.0 3.8-5.0 (g /dL) Final AST (Aspartate aminotransferase) 12/30/2024 07:44:00 23 10-50 (U/L) Fin al Alk Phos 12/30/2024 07:44:00 124 35-130 (U/ L) Final Bilirubin, Total 12/30/2024 07:44:00 0.5 <=1 .2 (mg/dL) Final Calcium 12/30/2024 07:44:00 10.3 Above high normal 8. 4-10.2 (mg/dL) Final Protein 12/30/2024 07:44:00 7.0 6.0-8.3 (g /dL) Final ALT (Alanine aminotransferase) 12/30/2024 07:44:00 27 10-50 (U/L) Kumar bustamante Performing Location [facility] [address] [facility] [address]
--- OUTSIDE RECORDS SUMMARY | 2025-01-16 00:19 | External Medical Summary ---
Author Name Unknown Address Unknown Organization [id number]:[facility] [address] [place] [id number] Laboratory Report Ordering Provider Test Date Status LEILANI WEST 12/30/2024 07:44:00 Final Observation Date Value Abnormality Reference (Units ) Status WBC, Total 12/30/2024 07:44:00 5.53 4.00-10.8 0 (K/uL) Final RBC 12/30/2024 07:44:00 4.35 4.50-5.25 (M/uL) Final Hemoglobin 12/30/2024 07:44:00 13.1 Below low normal 14 .0-16.8 (g/dL) Final HCT 12/30/2024 07:44:00 41.8 40.0-48.4 (%) Final MCV 12/30/2024 07:44:00 96.1 82.0-99.5 (fL) Final MCH 12/30/2024 07:44:00 30.1 27.0-34.0 (pg) Final MCHC 12/30/2024 07:44:00 31.3 32.0-36.0 (g/dL) Final RDW 12/30/2024 07:44:00 15.2 11.5-15.5 (%) Final Platelets 12/30/2024 07:44:00 111 Below low normal 140 -400 (K/uL) Final MPV 12/30/2024 07:44:00 11.9 6.6-11.1 ( fL) Final Performing Location [facility] [address] [place] [id number]
--- OUTSIDE RECORDS SUMMARY | 2025-01-16 00:19 | External Medical Summary | Summary of Care ---
Author Name Unknown Organization [facility] Address [address] [place] [address] Phone [phone] Care Team Providers Care History Faculty Member Name Role Phone Pro, Christopher Wells MD Primary Care Provider [phone]- [phone] Encounter Details Date Type Department Care Team (Late st Contact Info) Description 12/30/2024 Orders Only Lab Mobile Phlebotomy [id number] [place] [address] Mal Hubbard MD [address] [place] [address] Chronic lymphocytic leukemia (HCC)* Allergies Active Allergy Reactions Criticality Noted Date Comments John Inhibitors 06/15/2018 Morphine And Codeine Nausea/vomiting 07/19/2010 documented as of this encounter (statuses as of 12/30/2024) Medications Apixaban 5 MG Oral Tablet (Eliquis)Indica tions:Arterial ischemic stroke, multifocal, multiple vascular territories, acute (HCC),Acute deep vein thrombosis (DVT) of both peroneal veins (HCC) Take 1 Tablet by mouth in the morning and 1 Tablet before bedtime. Take until 08/28/23. 60 Tablet 3 Active Atorvastatin Calcium 40 MG Oral Tablet (Lipitor)Indica tions:Arterial ischemic stroke, multifocal, multiple vascular territories, acute (HCC),Hyperlipi demia with target LDL less than 100,History of CVA (cerebrovascula r accident) Take 1 Tablet by mouth in the morning. 30 Tablet 3 Active Carvedilol 3.125 MG Oral Tablet (Coreg)Indicati ons:HTN, goal below 140/90 Take 1 Tablet by mouth 2 times a day with morning and evening meals. 60 Tablet 3 Active amLODIPine Besylate 10 MG Oral Tablet (Norvasc)Indica tions:HTN, goal below 140/90 Take 1 Tablet by mouth in the morning. 30 Tablet 3 Active Famotidine 40 MG Oral Tablet (Pepcid) Take 1 Tablet by mouth in the morning. 30 Tablet 3 Active Finasteride 5 MG Oral Tablet (Proscar)Indica tions:BPH with obstruction/low er urinary tract symptoms Take 1 Tablet by mouth in the morning. 30 Tablet 3 Active Fluticasone Propionate 50 MCG/ACT Nasal Suspension (Flonase) Administer 2 Sprays into each nostril in the morning. 16 g 3 Active Potassium Chloride ER 10 MEQ Oral Capsule Extended ReleaseIndicati ons:Hypokalemia Take 1 Capsule by mouth in the morning and 1 Capsule before bedtime. 60 Capsule 3 Active Tamsulosin HCl 0.4 MG Oral Capsule (Flomax)Indicat ions:BPH with obstruction/low er urinary tract symptoms Take 1 Capsule by mouth at bedtime. 30 Capsule 3 Active Valsartan 160 MG Oral Tablet (Diovan)Indicat ions:HTN, goal below 140/90 Take 1 Tablet by mouth in the morning. 30 Tablet 3 Active Vitamin D3 50 MCG (2000 UT) Oral CapsuleIndicati ons:History of hip fracture Take 1 Capsule by mouth in the morning. 30 Capsule 3 Active Acetaminophen 325 MG Oral Tablet (Tylenol) Take 2 Tablets by mouth in the morning and 2 Tablets before bedtime. 120 Tablet 3 Active documented as of this encounter (statuses as of 12/30/2024) Active Problems Problem Noted Date Diagnosed Date Chronic systolic congestive heart failure 2022 History of cerebral embolic infarction 3 Acute deep vein thrombosis (DVT) of both peronea l veins 05/29/2023 Periprosthetic fracture of proximal end of femur 07/07/2022 Slow transit constipation 07/07/2022 Thrombocytopenia 07/07/2022 BPH with obstruction/lower urinary tract symptom s 07/07/2022 History of CVA (cerebrovascular accident) 2021 Age-related physical debility 07/07/2022 S/P TAVR (transcatheter aortic valve replacement ) 07/07/2022 CLL (chronic lymphocytic leukemia) 06/15/2018 History of TIA (transient ischemic attack) 06/15 Hyperlipidemia with target LDL less than 100 S/P hip replacement, bilateral 06/15/2018 HTN, goal below 140/90 06/15/2018 Chronic rhinitis 07/19/2010 Deviated nasal septum 07/19/2010 documented as of this encounter (statuses as of 12/30/2024) Resolved Problems Problem Noted Date Diagnosed Date Resolved Date Left displaced femoral neck fracture 06/15/2018 07/07/2022 documented as of this encounter (statuses as of 12/30/2024) Immunizations Name Administration Dates Next Due Covid-19, Mrna, Lnp-s, Pf, B ivalent, 30 Mcg, IM, 12 yrs and above ([employer]) 07/26/2022 documented as of this encounter Social History Tobacco Use Types Packs/Day Years Used Date Smoking Tobacco: Former Cigarettes Pipe Smokeless Tobacco: Never Alcohol Use Standard Drinks/Week Comments Yes 0 (1 standard drink = 0.6 oz pure alcohol) beer or wine with dinner, 2-3 drinks per day Sex and Gender Information Value Date Recorded Sex Assigned at Not on file Legal Sex Male 6:49 AM EST Gender Identity Not on file Sexual Orientation Not on file documented as of this encounter Plan of Treatment Pending Results Name Type Priority Associated Diagnoses Date /Time CBC WITH WBC DIFFERENTIAL Lab Routine Chronic lymphocytic leukemia (HCC) 12/30/2024 7:44 AM EDT Scheduled Orders Name Type Priority Associated Diagnoses Orde r Schedule COMPREHENSIVE METABOLIC PANEL Lab Routine Chronic lymphocytic leukemia (HCC) Expected: 12/30/2024, Expires: 12/30/2025 CBC WITH WBC DIFFERENTIAL Lab Routine Chronic lymphocytic leukemia (HCC) Expected: 12/30/2024, Expires: 12/30/2025 LD Lab Routine Chronic lymphocytic leukemia (HCC) Expected: 12/30/2024, Expires: 12/30/2025 Health Maintenance Due Date Last Done Comments Depression Screening 1947 Albumin/Creatinine Ratio 1955 DTap/Tdap Vaccines (1 - Tdap) 1954 Pneumococcal Vaccine: 50+ Years (1 of 2 - PCV) 1954 Zoster Vaccines (1 of 2) 1954 COVID-19 Vaccine (7 - 2023- season) 2024 09/11/2023, 07/26/2022, 07/26/2022, Additional history exists Influenza Vaccine (FLU shot) (#1) 2024 08/15/2019, 07/28/2017 HPV (Gardasil) Vaccine Aged Out No lo nger eligible based on patient's age to complete this topic Hepatitis B Vaccine Aged Out No longe r eligible based on patient's age to complete this topic MENINGOCOCCAL (MENACTRA/MENVEO) Aged Out No longer eligible based on patient's age to complete this topic Meningitis B Vaccine (Bexsero/Trumemba) Aged Out No longer eligible based on patient's age to complete this topic documented as of this encounter Medical Devices Not on filedocumented as of this encounter Visit Diagnoses Diagnosis Chronic lymphocytic leukemia (HCC)- Primary Chronic lymphoid leukemia, without mention of having achieved remission documented in this encounter Care Teams History Faculty Member Relationship Specialty Start Date End Date Pro, Christopher Wells MD PCP - General 07/19/10 documented as of this encounter
--- OUTSIDE RECORDS SUMMARY | 2025-01-16 00:19 | External Medical Summary ---
Author Name Unknown Address Unknown Organization [id number]:[facility] [place] [address] [place] [address] Laboratory Report Ordering Provider Test Date Status JENNA,LEILANI 12/30/2024 07:44:00 Final Observation Date Value Abnormality Reference (Units ) Status LDH 12/30/2024 07:44:00 215 <=250 (U/L ) Final Results may be falsely eleva magnolia due to hemolysis. Performing Location [facility] [place] - [address] [place] [address]
--- OUTSIDE RECORDS SUMMARY | 2025-01-16 00:19 | External Medical Summary ---
Author Name Unknown Address Unknown Organization [id number]:[facility] [address] [place] [id number] Laboratory Report Ordering Provider Test Date Status LEILANI WEST 12/30/2024 07:44:00 Final Observation Date Value Abnormality Reference (Units ) Status SYNC LEUKOCYTES IN BLOOD BY AUTOMATED COUNT 12/30/2024 07:44:00 5.53 4.00-10.80 (K/uL) Final Segs 12/30/2024 07:44:00 72.5 40.0-75.0 (%) Final Lymphs % 12/30/2024 07:44:00 9.4 Below low normal 18.0-42.0 (%) Final Monos 12/30/2024 07:44:00 14.1 Above high normal 1.0-11.0 (%) Final Eosinophils 12/30/2024 07:44:00 3.8 0.0-6.0 (%) Final Basos 12/30/2024 07:44:00 0.2 0.0-2.0 (%) Final Absolute Segs 12/30/2024 07:44:00 4.01 1.80-7.70 (K/uL) Final Lymphs, absolute 12/30/2024 07:44:00 0.52 Below low normal 1.00-4.80 (K/ul) Final Monos, Abs 12/30/2024 07:44:00 0.78 0.00-1.10 (K/uL) Final Eos, Abs 12/30/2024 07:44:00 0.21 0.00-0.70 (K/uL) Final Basos, Abs 12/30/2024 07:44:00 0.01 0.00-0.20 (K/uL) Final Performing Location [facility] [address] [place] [id number]
--- OUTSIDE RECORDS SUMMARY | 2025-01-16 00:20 | External Medical Summary ---
Author Name Unknown Address Unknown Organization [id number]:[facility] [address] [place] [id number] Laboratory Report Ordering Provider Test Date Status JENNAARABELLAH 12/30/2024 07:44:00 Final Observation Date Value Abnormality Reference (Units ) Status Nucleated erythrocytes/100 leukocytes [Ratio] in Blood by Automated count 12/30/2024 07:44:00 Final Performing Location [facility] [address] [place] [id number]
[2025-01-16] MEDS: AMPICILLIN/SULBACTAM SOD 3,000 MG/100 ML BAG IV SCH (05:17)
[2025-01-16 07:40] LABS: Hematocrit (blood only) 34.7 % (42.0-52.0); Hemoglobin 11.4 g/dl (14.0-18.0); Mean Corpuscular Hemoglobin 29.7 pg (25.0-34.0); Mean Corpuscular Hgb Conc 32.9 g/dL (32.0-36.0); Mean Corpuscular Volume 90.4 fL (80.0-100.0); Mean Platelet Volume 11.9 fL (9.4-12.4); Platelet Count 77 K/uL (130-400); RDW Coefficient of Variation 14.4 % (11.5-14.5); RDW Standard Deviation 47.8 fL (36.4-46.3); Red Blood Count 3.84 M/uL (4.70-6.10); White Blood Count 6.42 K/ul (4.8-10.8)
[2025-01-16 07:59] LABS: Calcium 9.3 mg/dl (8.6-10.3); Potassium 3.2 mmol/L (3.5-5.1)
[2025-01-16 08:05] LABS: BUN Creatinine Ratio 21.9 (10-20); Creatinine Clr Calc Pharmacy 31.6 ml/min
[2025-01-16] MEDS: POTASSIUM CHLORIDE CRTAB 20 MEQ TABCR PO STA (08:49)
[2025-01-16] MEDS: DOXYCYCLINE HYCLATE 100 MG in DEXTROSE 5% MINI-B 100 ML IV SCH (08:49)
[2025-01-16] MEDS: OXYBUTYNIN CHLORIDE XL 5 MG TABCR PO SCH (08:50)
[2025-01-16] MEDS: MONTELUKAST SODIUM 10 MG TABLET PO SCH (08:50)
[2025-01-16] MEDS: ATORVASTATIN 40 MG TAB PO SCH (08:50)
[2025-01-16] MEDS: VALSARTAN 80 MG TAB PO SCH (08:50)
[2025-01-16] MEDS: FLUTICASONE FUROATE 100MCG 14 PUFFS/INHALER INH SCH (08:50)
[2025-01-16] MEDS: CHOLECALCIFEROL 25 MCG (1000 UNITS) TAB PO SCH (08:50)
[2025-01-16] MEDS: FAMOTIDINE 40 MG TABLET PO PRN (08:50)
[2025-01-16] MEDS: UMECLIDINIUM/VILANTEROL 62.5/25MCG 7 PUFFS/INHALER INH SCH (08:50)
[2025-01-16] MEDS ORDERED: NON-FORMULARY MEDICATION (Fluticasone-Umeclidin-Vilanter [Trelegy Ellipta] 100-62.5-25 mcg INH SCH (09:00)
--- NOTE | 2025-01-16 15:36 | Hospitalist Progress Note ---
Date of Service January 16, 2025 Assessment & Plan (1) Bilateral pneumonia: (2) CKD (chronic kidney disease): (3) Cellulitis and abscess of left leg: (4) Weakness: (5) History of stroke: (6) Thrombocytopenia: Plan This is an 89 year old gentleman with past medical history of GERD, AAA, hx CVA, HTN, HLD, BPH, PVD who presented to the ED on 01/15 from an assisted living facility for weakness. #Pneumonia Patient with productive cough x 4 days along with weakness/confusion. CXR: bilateral pneumonia CBC w/o leukocytosis. BMP w/ stable electrolytes, creatinine improved to 1.28 MRSA swab negative Sputum culture contaminated -> given patient's episodes of confusion, doubt patient would be able to cough up a viable sputum sample. Will defer repeat. Consult speech in event this is related to aspiration. -> video swallow set for 01/20 Continue IV Doxycycline and Unasyn Mucinex BID, Duoneb prn for shortness of breath or wheezing. Continue home inhalers and Montelukast for hx of COPD AM CBC/BMP #Cellulitis, LLE Improved Continue Doxy/Unasyn Monitor for improvement. #Weakness Secondary to pneumonia PT/OT consulted, appreciate recommendations Per Advocate - looking for skilled placement upon discharge. #History of C diff/Loose stools. patient w/ hx of C diff in past per advocate. patient passed multiple stools today. Obtain stool sample to recheck for C diff. Start Vancomycin 125mg PO daily given he is on antibiotic therapy. #CKD/SANDY Patient w/ hx of CKD, baseline creatinine recently appears 1-2. In past ~2-2.2 Creatinine upon admission 1.77, down to 1.28 01/16, K low at 3.2, s/p repletion. s/p 1 L NSS Continue potassium supplements Repeat BMP in AM #Thrombocytopenia CBC upon admission w/ plt count at 90 Does appear chronic per review of previous labs. recent CTAP 08/2024 -> no findings to suggestive cirrhosis at that time. Reduced to 77 01/16 Continue to monitor #CAD/HTN On Carvedilol, Valsartan, Atorvastatin outpatient. Chronic Eliquis 2.5mg BID for hx of CVA Most recent Echo 05/2023 - EF 35-40% Caution IVF given reduced EF. Chronic conditions: Neuropathy: Gabapentin DVT prophylaxis: Eliquis 2.5mg twice daily (on for hx of CVA) Code: DNR/DNI, patient advocate brought in documentation stating this was the patient's code status on 01/16. Updated patient's advocate at bedside 01/16 Admission and Anticipated Discharge Date Admission Date: January 15, 2025 Subjective Patient seen and examined this morning. Patient reports improvement of his cough this morning. He denied shortness of breath or chest pain. Discussed with advocate that patient does seem more confused. He has a history of delrium while hospitalized. She reports that patient has been placed on soft restraints before and that makes his behavior worse. she also brought in documentation that was recently signed stating that patient is a DNR/DNI, code status was updated. Per nursing, patient with multiple BM's today. He does have a history of C diff. Physical Exam Constitutional: WD/WN, vitals as above Eyes: PERRL, conjunctivae normal, anicteric sclerae Respiratory: normal respiratory effort, lungs clear to auscultation Cardiovascular: RRR, no murmur, no edema Skin: erythema resolved. Psychiatric: alert, cooperative, mildly confused Results & Data Results & Data Vital Signs (Past 12 Hours) Vital Signs Temp Pulse Resp BP Pulse Ox O2 Del Method 01/16/25 14:00 Room Air 01/16/25 07:09 36.8 C 64 18 137/67 93 Room Air PG Care Time/CCT Total # of Minutes Spent Total Time Spent with Patient: Total time spent is greater than 50% in coordination of care (as documented) at patient's floor/unit and/or counseling patient: Coding Level of Care Code 80356 SUB INP/OBS CARE 3/50MIN Diagnoses Bilateral pneumonia J18.9 CKD (chronic kidney disease) N18.9 Cellulitis and abscess of left leg L03.116; L02.416 Weakness R53.1 History of stroke Z86.73 Thrombocytopenia D69.6
[2025-01-16] MEDS: CHERRY SYRUP 5 ML UDP PO SCH (17:21)
[2025-01-16] MEDS: VANCOMYCIN HCL 125 MG/2.5ML SOLN PO SCH (17:22)
[2025-01-16 23:07] LABS: Cdiff Toxin B Gene (2yr or >) Positive Cdiff Gene (Neg)
[2025-01-16 23:32] LABS: Cdiff Antigen Positive; Cdiff Toxin A+B Negative Cdiff Toxin (Negative)
[2025-01-17 09:30] LABS: Hematocrit (blood only) 36.8 % (42.0-52.0); Mean Corpuscular Hemoglobin 29.3 pg (25.0-34.0); Mean Corpuscular Hgb Conc 32.6 g/dL (32.0-36.0); Mean Platelet Volume 12.3 fL (9.4-12.4); Platelet Count 93 K/uL (130-400); RDW Coefficient of Variation 14.4 % (11.5-14.5); RDW Standard Deviation 47.4 fL (36.4-46.3); Red Blood Count 4.09 M/uL (4.70-6.10); White Blood Count 6.39 K/ul (4.8-10.8)
[2025-01-17 09:46] LABS: BUN Creatinine Ratio 18.1 (10-20); Calcium 9.8 mg/dl (8.6-10.3); Creatinine Clr Calc Pharmacy 29.3 ml/min; Potassium 3.2 mmol/L (3.5-5.1)
[2025-01-17] MEDS: VANCOMYCIN HCL 125 MG/2.5ML SOLN PO SCH (12:38)
[2025-01-17] MEDS: CHERRY SYRUP 5 ML UDP PO SCH (12:38)
--- NOTE | 2025-01-17 14:35 | Hospitalist Progress Note ---
Date of Service January 17, 2025 Assessment & Plan (1) Bilateral pneumonia: (2) CKD (chronic kidney disease): (3) Cellulitis and abscess of left leg: (4) Weakness: (5) History of stroke: (6) Thrombocytopenia: (7) C. difficile diarrhea: Plan This is an 89 year old gentleman with past medical history of GERD, AAA, hx CVA, HTN, HLD, BPH, PVD who presented to the ED on 01/15 from an assisted living facility for weakness. #Pneumonia Patient with productive cough x 4 days along with weakness/confusion. CXR: bilateral pneumonia CBC w/o leukocytosis. MRSA swab negative Sputum culture contaminated -> given patient's episodes of confusion, doubt patient would be able to cough up a viable sputum sample. Will defer repeat. Consult speech in event this is related to aspiration. -> video swallow set for 01/20 Continue IV Doxycycline and Unasyn Mucinex BID, Duoneb prn for shortness of breath or wheezing. Continue home inhalers and Montelukast for hx of COPD PT/OT recommending rehab. AM CBC/BMP #History of C diff/Loose stools. patient w/ hx of C diff in past per advocate. C diff gene positive, toxin negative. Given + symptoms plan to treat with Vancomycin q6h x 10 days. Start probiotic #Cellulitis, LLE Improved Continue Doxy/Unasyn as above. #Weakness Secondary to pneumonia PT/OT consulted, appreciate recommendations Per Advocate - looking for skilled placement upon discharge. #CKD/SANDY Patient w/ hx of CKD, baseline creatinine recently appears 1-2. In past ~2-2.2 Creatinine upon admission 1.77, stable at 1.38, K 3.2, s/p repletion. s/p 1 L NSS Continue potassium supplements Repeat BMP in AM #Thrombocytopenia CBC upon admission w/ plt count at 90; CBC w/ increase of plt to 93 Does appear chronic per review of previous labs. recent CTAP 08/2024 -> no findings to suggestive cirrhosis at that time. #CAD/HTN On Carvedilol, Valsartan, Atorvastatin outpatient. Chronic Eliquis 2.5mg BID for hx of CVA Most recent Echo 05/2023 - EF 35-40% Caution IVF given reduced EF. Chronic conditions: Neuropathy: Gabapentin DVT prophylaxis: Eliquis 2.5mg twice daily (on for hx of CVA) Code: DNR/DNI, patient advocate brought in documentation stating this was the patient's code status on 01/16. Updated patient's advocate and nephew at bedside 01/17 Admission and Anticipated Discharge Date Admission Date: January 15, 2025 Subjective Patient seen and examined this morning. Patient reports he is feeling well today. Patient's nephew and advocate at bedside - reports he is more confused but pleasant. Patient denied CP, SOB, or cough. Physical Exam Constitutional: WD/WN, vitals as above Eyes: PERRL, conjunctivae normal, anicteric sclerae ENMT: external ear and nose normal, oropharynx normal Respiratory: normal respiratory effort, lungs clear to auscultation Cardiovascular: RRR, no murmur, no edema Neurologic: PERRL, EOMI, accommodation nl, no face palsy, no dysarthria Psychiatric: Orientation: alert Results & Data Results & Data Vital Signs (Past 12 Hours) Vital Signs Temp Pulse Resp BP Pulse Ox O2 Del Method 01/17/25 09:00 Room Air 01/17/25 07:35 36.4 C L 62 20 145/65 H 94 Room Air PG Care Time/CCT Total # of Minutes Spent Total Time Spent with Patient: Total time spent is greater than 50% in coordination of care (as documented) at patient's floor/unit and/or counseling patient: Coding Level of Care Code 14730 SUB INP/OBS CARE 3/50MIN Diagnoses Bilateral pneumonia J18.9 CKD (chronic kidney disease) N18.9 Cellulitis and abscess of left leg L03.116; L02.416 Weakness R53.1 History of stroke Z86.73 Thrombocytopenia D69.6 C. difficile diarrhea A04.72
[2025-01-17] MEDS: POTASSIUM CHLORIDE CRTAB 20 MEQ TABCR PO STA (14:51)
[2025-01-18 07:24] LABS: Hematocrit (blood only) 33.9 % (42.0-52.0); Mean Corpuscular Hemoglobin 29.6 pg (25.0-34.0); Mean Corpuscular Hgb Conc 32.4 g/dL (32.0-36.0); Mean Corpuscular Volume 91.4 fL (80.0-100.0); Mean Platelet Volume 12.1 fL (9.4-12.4); Platelet Count 95 K/uL (130-400); RDW Coefficient of Variation 14.2 % (11.5-14.5); RDW Standard Deviation 47.9 fL (36.4-46.3); Red Blood Count 3.71 M/uL (4.70-6.10); White Blood Count 6.06 K/ul (4.8-10.8)
[2025-01-18 07:36] LABS: BUN Creatinine Ratio 18.3 (10-20); Calcium 9.3 mg/dl (8.6-10.3); Creatinine Clr Calc Pharmacy 30.9 ml/min; Potassium 3.4 mmol/L (3.5-5.1)
[2025-01-18] MEDS: POTASSIUM CHLORIDE CRTAB 20 MEQ TABCR PO STA (09:07)
[2025-01-18] MEDS: ADVANCED PROBIOTIC 625 MG CAPSULE PO SCH (09:10)
[2025-01-18] MEDS: DOXYCYCLINE HYCLATE 100 MG CAP PO SCH (11:52)
--- NOTE | 2025-01-18 14:22 | Hospitalist Progress Note ---
Date of Service January 18, 2025 Assessment & Plan (1) Bilateral pneumonia: (2) CKD (chronic kidney disease): (3) Cellulitis and abscess of left leg: (4) Weakness: (5) History of stroke: (6) Thrombocytopenia: (7) C. difficile diarrhea: Plan This is an 89 year old gentleman with past medical history of GERD, AAA, hx CVA, HTN, HLD, BPH, PVD who presented to the ED on 01/15 from an assisted living facility for weakness. #Pneumonia Patient with productive cough x 4 days along with weakness/confusion. CXR: bilateral pneumonia CBC w/o leukocytosis. Procal WNL MRSA swab negative Sputum culture contaminated -> given patient's episodes of confusion, doubt patient would be able to cough up a viable sputum sample. Will defer repeat. Consult speech in event this is related to aspiration. -> video swallow set for 01/20 IV doxy convert to PO, Unasyn switched to Augmentin 01/18 to complete course. Mucinex BID, Duoneb prn for shortness of breath or wheezing. Continue home inhalers and Montelukast for hx of COPD AM CBC/BMP #History of C diff/Loose stools. patient w/ hx of C diff in past per advocate. C diff gene positive, toxin negative. Given + symptoms plan to treat with Vancomycin q6h x 10 days. Continue Probiotic. #Cellulitis, LLE Improved Continue Doxy/Augmentin as above. #Weakness Secondary to pneumonia PT/OT consulted-> recommending rehab. #CKD/SANDY Patient w/ hx of CKD, baseline creatinine recently appears 1-2. In past ~2-2.2 Creatinine upon admission 1.77, stable at 1.31, K 3.4, s/p repletion. s/p 1 L NSS Continue potassium supplements Repeat BMP in AM #Thrombocytopenia CBC upon admission w/ plt count at 90; CBC w/ increase of plt to 95 Does appear chronic per review of previous labs. recent CTAP 08/2024 -> no findings to suggestive cirrhosis at that time. #CAD/HTN On Carvedilol, Valsartan, Atorvastatin outpatient. Chronic Eliquis 2.5mg BID for hx of CVA Most recent Echo 05/2023 - EF 35-40% Caution IVF given reduced EF. Chronic conditions: Neuropathy: Gabapentin DVT prophylaxis: Eliquis 2.5mg twice daily (on for hx of CVA) Code: DNR/DNI, patient advocate brought in documentation stating this was the patient's code status on 01/16. Admission and Anticipated Discharge Date Admission Date: January 15, 2025 Subjective Patient seen and examined. Patient denied any complaints today. Physical Exam Constitutional: WD/WN, vitals as above Eyes: PERRL, conjunctivae normal, anicteric sclerae Respiratory: normal respiratory effort, lungs clear to auscultation Cardiovascular: RRR, no murmur, no edema Psychiatric: pleasant, confused Results & Data Results & Data Vital Signs (Past 12 Hours) Vital Signs Temp Pulse Resp BP Pulse Ox O2 Del Method 01/18/25 07:22 36.9 C 66 18 147/77 H 95 Room Air PG Care Time/CCT Total # of Minutes Spent Total Time Spent with Patient: Total time spent is greater than 50% in coordination of care (as documented) at patient's floor/unit and/or counseling patient: Coding Level of Care Code 95204 SUB INP/OBS CARE 2/35MIN Diagnoses Bilateral pneumonia J18.9 CKD (chronic kidney disease) N18.9 Cellulitis and abscess of left leg L03.116; L02.416 Weakness R53.1 History of stroke Z86.73 Thrombocytopenia D69.6 C. difficile diarrhea A04.72
[2025-01-18] MEDS: AMOXICILLIN/CLAVULANATE 875 MG TAB PO SCH (17:29)
[2025-01-18] MEDS: ALBUT/IPRATROP 3MG/0.5MG NEB 3 ML VIAL NEB PRN (22:10)
[2025-01-19 06:58] LABS: Hematocrit (blood only) 34.8 % (42.0-52.0); Hemoglobin 11.3 g/dl (14.0-18.0); Mean Corpuscular Hemoglobin 29.7 pg (25.0-34.0); Mean Corpuscular Hgb Conc 32.5 g/dL (32.0-36.0); Mean Corpuscular Volume 91.3 fL (80.0-100.0); Mean Platelet Volume 12.5 fL (9.4-12.4); Platelet Count 107 K/uL (130-400); RDW Coefficient of Variation 14.2 % (11.5-14.5); Red Blood Count 3.81 M/uL (4.70-6.10); White Blood Count 6.21 K/ul (4.8-10.8)
[2025-01-19 07:27] LABS: BUN Creatinine Ratio 17.3 (10-20); Calcium 9.7 mg/dl (8.6-10.3); Creatinine Clr Calc Pharmacy 30.4 ml/min; Potassium 3.6 mmol/L (3.5-5.1)
--- NOTE | 2025-01-19 13:35 | Hospitalist Progress Note ---
Date of Service January 19, 2025 Assessment & Plan (1) Bilateral pneumonia: (2) CKD (chronic kidney disease): (3) Cellulitis and abscess of left leg: (4) Weakness: (5) History of stroke: (6) Thrombocytopenia: (7) C. difficile diarrhea: Plan This is an 89 year old gentleman with past medical history of GERD, AAA, hx CVA, HTN, HLD, BPH, PVD who presented to the ED on 01/15 from an assisted living facility for weakness. #Pneumonia Patient with productive cough x 4 days along with weakness/confusion. CXR: bilateral pneumonia CBC w/o leukocytosis. Procal WNL MRSA swab negative; BC negative x 48h Sputum culture contaminated -> given patient's episodes of confusion, doubt patient would be able to cough up a viable sputum sample. Will defer repeat. Consult speech in event this is related to aspiration. -> video swallow set for 01/20 IV doxy converted to PO, Unasyn switched to Augmentin 01/18 to complete course. Mucinex BID, Duoneb prn for shortness of breath or wheezing. Continue home inhalers and Montelukast for hx of COPD #History of C diff/Loose stools. patient w/ hx of C diff in past per advocate. C diff gene positive, toxin negative. Given + symptoms plan to treat with Vancomycin q6h x 10 days. Continue Probiotic. #Cellulitis, LLE Resolved Continue Doxy/Augmentin as above. #Weakness Secondary to pneumonia PT/OT consulted-> recommending rehab. #CKD/SANDY Patient w/ hx of CKD, baseline creatinine recently appears 1-2. In past ~2-2.2 Creatinine upon admission 1.77, stable at 1.33 s/p 1 L NSS Continue potassium supplements #Thrombocytopenia CBC upon admission w/ plt count at 90; CBC w/ increase of plt to 107 Does appear chronic per review of previous labs. recent CTAP 08/2024 -> no findings to suggestive cirrhosis at that time. #CAD/HTN On Carvedilol, Valsartan, Atorvastatin outpatient. Chronic Eliquis 2.5mg BID for hx of CVA Most recent Echo 05/2023 - EF 35-40% Caution IVF given reduced EF. Chronic conditions: Neuropathy: Gabapentin DVT prophylaxis: Eliquis 2.5mg twice daily (on for hx of CVA) Code: DNR/DNI, patient advocate brought in documentation stating this was the patient's code status on 01/16. Admission and Anticipated Discharge Date Admission Date: January 15, 2025 Subjective Patient seen and examined this morning. Patient denied any complaints at time of encounter Physical Exam Constitutional: WD/WN, vitals as above Eyes: PERRL, conjunctivae normal, anicteric sclerae ENMT: external ear and nose normal, oropharynx normal Respiratory: normal respiratory effort, lungs clear to auscultation Cardiovascular: RRR, no murmur, no edema Results & Data Results & Data Vital Signs (Past 12 Hours) Vital Signs Temp Pulse Resp BP Pulse Ox O2 Del Method O2 Flow Rate 01/19/25 11:16 95 Room Air 01/19/25 10:46 Nasal Cannula 3 01/19/25 07:00 36.8 C 58 L 18 156/65 H 96 Nasal Cannula 3 PG Care Time/CCT Total # of Minutes Spent Total Time Spent with Patient: Total time spent is greater than 50% in coordination of care (as documented) at patient's floor/unit and/or counseling patient: Coding Level of Care Code 63099 SUB INP/OBS CARE 2/35MIN Diagnoses Bilateral pneumonia J18.9 CKD (chronic kidney disease) N18.9 Cellulitis and abscess of left leg L03.116; L02.416 Weakness R53.1 History of stroke Z86.73 Thrombocytopenia D69.6 C. difficile diarrhea A04.72
[2025-01-19] MEDS: MELATONIN 3 MG TAB PO PRN (23:57)
--- NOTE | 2025-01-20 11:07 | Fluoroscopy Report ---
FL video swallow CLINICAL HISTORY: 89 years-old Male with assess for aspiration/recurrent pneumonia. TECHNIQUE: Video fluoroscopic evaluation of swallowing was performed in the AP and lateral projection s by the speech pathology staff. The patient is fed varying consistencies of barium. FLUOROSCOPY TIME: 1.2 minutes. 1917 images were submitted. 6.35 Gy. COMPARISON STUDY: None. FINDINGS: Silent aspiration noted with thin liquid barium. Laryngeal penetration without aspiration n oted with the nectar consistency. Descending thoracic aortic endograft noted. IMPRESSION: 1. Silent aspiration with thin liquid barium. 2. Please see the speech pathologist report for detailed findings and recommendations. ACT 112: Negative or not required by law. Electronically signed by: Daryl Young M.D. 01/20/2025 11:05 AM
--- NOTE | 2025-01-20 12:46 | Hospitalist Progress Note ---
Date of Service January 20, 2025 Assessment & Plan (1) Bilateral pneumonia: (2) CKD (chronic kidney disease): (3) Cellulitis and abscess of left leg: (4) Weakness: (5) History of stroke: (6) Thrombocytopenia: (7) C. difficile diarrhea: Plan This is an 89 year old gentleman with past medical history of GERD, AAA, hx CVA, HTN, HLD, BPH, PVD who presented to the ED on 01/15 from an assisted living facility for weakness and productive cough x 4 days. initial evaluation with chest x-ray with bilateral pneumonia. MRSA nares was negative. Initially treated with Unasyn and IV doxycycline which has been converted to p.o. Augmentin and doxycycline. #Pneumonia / Aspiration events / COPD / weakness BC negative x 48h Sputum culture contaminated -> given patient's episodes of confusion, doubt patient would be able to cough up a viable sputum sample. Will defer repeat. Concerns for aspiration, [employer] T[employer]BE BENDER consulted. Video swallow study showing silent aspirations with thin liquidsSLP recommending nectar thick liquids easy to chew diet Continue doxycycline and Augmentin Supportive care: FV, Mucinex BID, Duoneb prn for shortness of breath or wheezing. Continue home inhalers and Montelukast for hx of COPD PT/OT consulted-> recommending rehab. CM following Baseline is room air, wean O2 as able, goal > 90% #History of C diff/Loose stools. patient w/ hx of C diff in past per advocate. C diff gene positive, toxin negative --> Given + symptoms plan to treat with Vancomycin q6h x 10 days. Continue Probiotic. #Cellulitis, LLE Resolved Continue Doxy/Augmentin as above. #CKD/SANDY Patient w/ hx of CKD, baseline creatinine recently appears 1-2. In past ~2-2.2 Creatinine upon admission 1.77, stable at 1.33. s/p 1 L NSS Continue potassium supplements #Thrombocytopenia CBC upon admission w/ plt count at 90; CBC w/ increase of plt to 107 Does appear chronic per review of previous labs. recent CTAP 08/2024 -> no findings to suggestive cirrhosis at that time. #CAD/HTN On Carvedilol, Valsartan, Atorvastatin outpatient. Chronic Eliquis 2.5mg BID for hx of CVA Most recent Echo 05/2023 - EF 35-40%. Caution IVF given reduced EF. Neuropathy: continue Gabapentin Dispo: continued inpatient stay, weaning oxygen, planning for rehab placement DVT prophylaxis: Eliquis 2.5mg twice daily (on for hx of CVA) Code: DNR/DNI, patient advocate brought in documentation stating this was the patient's code status on 01/16. Shikha, patient advocate, updated by phone 01/20 Admission and Anticipated Discharge Date Admission Date: January 15, 2025 Subjective Patient seen lying in bed, denies any acute complaints. When discussing having to have thickened liquids he seemed to be okay with this. He has been having diarrhea, denies abdominal pain. Asked me to update his patient advocate Review of Systems Review of Systems: All systems reviewed & are unremarkable except as noted in Subjective Physical Exam Physical Exam: General: NAD, VS as above, sitting up in bed, hard of hearing Resp: normal respiratory effort, on 2 L nasal cannula, rhonchi in the bases. No coughing during my encounter CV: RRR, no murmur, Abd: normal bowel sounds, non tender, soft Extremities: Moves all extremities, no edema Neuro: A&O x3, Skin: intact, no lesions noted Results & Data Results & Data Vital Signs (Past 12 Hours) Vital Signs Temp Pulse Resp BP Pulse Ox O2 Del Method O2 Flow Rate 01/20/25 08:33 90 Nasal Cannula 2 01/20/25 08:30 Nasal Cannula 2 01/20/25 08:25 92 Nasal Cannula 2 01/20/25 07:47 98.2 F 64 18 152/73 H 90 Room Air Diagnostic Findings video swallow study reviewed PG Care Time/CCT Total # of Minutes Spent Total Time Spent with Patient: Total time spent is greater than 50% in coordination of care (as documented) at patient's floor/unit and/or counseling patient: Coding Level of Care Code 23228 SUB INP/OBS CARE 2/35MIN Diagnoses Bilateral pneumonia J18.9 CKD (chronic kidney disease) N18.9 Cellulitis and abscess of left leg L03.116; L02.416 Weakness R53.1 History of stroke Z86.73 Thrombocytopenia D69.6 C. difficile diarrhea A04.72
[2025-01-21 10:25] LABS: Creatinine Clr Calc Pharmacy 31.1 ml/min
--- NOTE | 2025-01-21 11:19 | Hospitalist Progress Note ---
Date of Service January 21, 2025 Assessment & Plan (1) Bilateral pneumonia: (2) Cellulitis and abscess of left leg: (3) Thrombocytopenia: (4) C. difficile diarrhea: Plan This is an 89 year old gentleman with past medical history of GERD, AAA, hx CVA, HTN, HFrEF, HLD, BPH, PVD, CLL, OAB who presented to the ED on 01/15 from an assisted living facility for weakness and productive cough x 4 days. CXR with bilateral pneumonia. MRSA nares was negative. Initially treated with Unasyn and IV doxycycline which has been converted to p.o. Augmentin and doxycycline. Blood Cultures negative, finalized. #Pneumonia/Likely aspiration pneumonia/COPD/weakness Sputum culture contaminated -> given clinical improvement, defer repeat. Blood cultures no growth Concerns for aspiration, [employer] MANAGER consulted. Video swallow study showing silent aspirations with thin liquidsSLP recommending nectar thick liquids easy to chew diet Continue doxycycline and has now completed course of Augmentin Supportive care: FV, Mucinex BID, Duoneb prn for shortness of breath or wheezing. Continue home inhalers and Montelukast for hx of COPD PT/OT consulted-> recommending rehab. CM following - plan for [facility] when isolation bed is available. Now on room air #History of C diff/Loose stools. patient w/ hx of C diff in past per advocate. C diff gene positive, toxin negative --> Given + symptoms plan to treat with [place] ncomycin q6h x 10 days. Continue Probiotic. Stool frequency significantly decreased. Should be on prophylactic vanco in the future with antibiotics. #Cellulitis, LLE Resolved Continue Doxy/Augmentin as above. #CKD/SANDY Patient w/ hx of CKD, baseline creatinine recently appears 1-2. In past ~2-2.2 Creatinine upon admission 1.77, stable at 1.33. s/p 1 L NSS #Thrombocytopenia/CLL CBC upon admission w/ plt count at 90; CBC w/ increase of plt to 107 Does appear chronic per review of previous labs. 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 Follow CBC and if worsens, consult hematology #CAD/HFrEF/HTN/CVA/ALTAGRACIA s/p carotid endarterectomy On Carvedilol, Valsartan, Atorvastatin outpatient. 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 Caution IVF given reduced EF. #Neuropathy: continue Gabapentin #OAB-no acute issues - Continue oxybutynin DVT prophylaxis: Eliquis 2.5mg twice daily (on for hx of CVA) Dispo: continued inpatient stay, planning for rehab placement Code: DNR/DNI, patient advocate brought in documentation stating this was the patient's code status on 01/16. Shikha, patient advocate, updated by phone 01/20 and in person 01/21 Admission and Anticipated Discharge Date Admission Date: January 15, 2025 Supervising Physician Co-Signing Physician Notes MARION Supervision Note: I did not personally see or examine the patient today, but I verified all [place] points of MARION Sepulveda's assessment and plan with the following exceptions/additions: None Subjective Patient seen sitting up in the chair - hearing aides did not charge lat night and is very hard of hearing reports still having some cough no stools this AM Review of Systems Review of Systems: All systems reviewed & are unremarkable except as noted in Subjective Physical Exam Physical Exam: General: NAD, VS as above, sitting up in the chair, hard of hearing Resp: normal respiratory effort, on room air, CTA. No coughing during my encounter CV: RRR, no murmur, Abd: normal bowel sounds, non tender, soft Extremities: Moves all extremities, no edema Neuro: A&O x3, Skin: intact, no lesions noted Results & Data Results & Data Vital Signs (Past 12 Hours) Vital Signs Temp Pulse Resp BP Pulse Ox O2 Del Method 01/21/25 10:00 Room Air 01/21/25 07:32 97.9 F 67 18 157/78 H 93 Room Air Laboratory Results Cr reviewed - WNL Blood cultures reviewed PG Care Time/CCT Total # of Minutes Spent Total Time Spent with Patient: Total time spent is greater than 50% in coordination of care (as documented) at patient's floor/unit and/or counseling patient: Coding Level of Care Code 63727 SUB INP/OBS CARE 2/35MIN Diagnoses Bilateral pneumonia J18.9 Cellulitis and abscess of left leg L03.116; L02.416 Thrombocytopenia D69.6 C. difficile diarrhea A04.72
[2025-01-22 07:23] LABS: Hematocrit (blood only) 36.8 % (42.0-52.0); Hemoglobin 11.9 g/dl (14.0-18.0); Mean Corpuscular Hemoglobin 29.4 pg (25.0-34.0); Mean Corpuscular Hgb Conc 32.3 g/dL (32.0-36.0); Mean Corpuscular Volume 90.9 fL (80.0-100.0); Mean Platelet Volume 11.6 fL (9.4-12.4); Platelet Count 158 K/uL (130-400); RDW Coefficient of Variation 14.2 % (11.5-14.5); RDW Standard Deviation 47.6 fL (36.4-46.3); Red Blood Count 4.05 M/uL (4.70-6.10); White Blood Count 7.48 K/ul (4.8-10.8)
[2025-01-22 08:00] LABS: Basophils # (auto) 0.06 K/uL (0.00-0.20); Basophils % (auto) 0.8 %; Dohle Bodies 1+; Eosinophils # (auto) 0.28 K/uL (0.00-0.50); Eosinophils % (auto) 3.7 %; Immature Granulocytes # (auto) 0.73 K/uL (0.01-0.20); Immature Granulocytes % (auto) 9.8 %; Lymphocytes # (auto) 0.46 K/uL (1.20-3.40); Lymphocytes % (auto) 6.1 %; Monocytes # (auto) 1.01 K/uL (0.11-0.59); Monocytes % (auto) 13.5 %; Neutrophils # (auto) 4.94 K/uL (1.40-6.50); Neutrophils % (auto) 66.1 %; Toxic Granulation 1+
[2025-01-22 08:17] LABS: BUN Creatinine Ratio 20.1 (10-20); Calcium 9.9 mg/dl (8.6-10.3); Creatinine Clr Calc Pharmacy 29.1 ml/min; Magnesium 1.8 mg/dl (1.7-2.4); Potassium 3.7 mmol/L (3.5-5.1)
--- NOTE | 2025-01-22 15:05 | Hospitalist Progress Note ---
Date of Service January 22, 2025 Assessment & Plan (1) Bilateral pneumonia: (2) Cellulitis and abscess of left leg: (3) Thrombocytopenia: (4) C. difficile diarrhea: Plan This is an 89 year old gentleman with past medical history of GERD, AAA, hx CVA, HTN, HFrEF, HLD, BPH, PVD, CLL, OAB who presented to the ED on 01/15 from an assisted living facility for weakness and productive cough x 4 days. CXR with bilateral pneumonia. MRSA nares was negative. Initially treated with Unasyn and IV doxycycline which has been converted to p.o. Augmentin and doxycycline. Blood Cultures negative, finalized. #Pneumonia/Likely aspiration pneumonia/COPD/weakness Sputum culture contaminated -> given clinical improvement, defer repeat. Blood cultures no growth Concerns for aspiration, LEAN FACILITATOR consulted. Video swallow study showing silent aspirations with thin liquidsSLP recommending nectar thick liquids easy to chew diet Continue doxycycline and has now completed course of Augmentin Supportive care: FV, Mucinex BID, Duoneb prn for shortness of breath or wheezing. Continue home inhalers and Montelukast for hx of COPD PT/OT consulted-> recommending rehab. CM following - plan for [facility] when isolation bed is available. Now on room air #History of C diff/Loose stools. patient w/ hx of C diff in past per advocate. C diff gene positive, toxin negative --> Given + symptoms plan to treat with Vancomycin q6h x 10 days. Continue Probiotic. Stool frequency significantly decreased. Should be on prophylactic vanco in the future with antibiotics. #Cellulitis, LLE Resolved Doxy/Augmentin as above. #CKD/SANDY Patient w/ hx of CKD, baseline creatinine recently appears 1-2. In past ~2-2.2 Creatinine upon admission 1.77, stable at 1.39. s/p 1 L NSS #Thrombocytopenia/CLL CBC upon admission w/ plt count at 90; CBC w/ increase of plt to 158 He has a history of ITP like thrombocytopenia and follows with heme-onc for treatment of CLL. recent CTAP 08/2024 -> no findings to suggestive cirrhosis at that time. No current treatment for CLL. Follow CBC q3D and if worsens, consult hematology #CAD/HFrEF/HTN/CVA/ALTAGRACIA s/p carotid endarterectomy On Carvedilol, Valsartan, Atorvastatin outpatient. 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 Caution IVF given reduced EF. #Neuropathy: continue Gabapentin #OAB - Continue oxybutynin DVT prophylaxis: Eliquis 2.5mg twice daily (on for hx of CVA) Dispo: continued inpatient stay, planning for rehab placement Code: DNR/DNI, patient advocate brought in documentation stating this was the patient's code status on 01/16. Shikha, patient advocate, updated by phone 01/20 and in person 01/21 Admission and Anticipated Discharge Date Admission Date: January 15, 2025 Supervising Physician Co-Signing Physician Notes PA Supervision Note: I did not personally see or examine the patient today, but I verified all redmond points of MARION Sepulveda's assessment and plan with the following exceptions/additions: None Subjective Patient seen lying in bed, resting. No acute complaints wet cough, but non productive small stool this morning Review of Systems Review of Systems: All systems reviewed & are unremarkable except as noted in Subjective Physical Exam Physical Exam: General: NAD, vitals as above,lying in bed Pulm: breathing unlabored CV: well perfused extremities: moves all extremities able to make needs known Results & Data Results & Data Vital Signs (Past 12 Hours) Vital Signs Temp Pulse Resp BP Pulse Ox O2 Del Method 01/22/25 09:40 Room Air 01/22/25 08:12 97.7 F 70 18 159/87 H 94 Room Air Laboratory Results cbc and chemistry and mag reviewed PG Care Time/CCT Total # of Minutes Spent Total Time Spent with Patient: Total time spent is greater than 50% in coordination of care (as documented) at patient's floor/unit and/or counseling patient: Coding Level of Care Code 34729 SUB INP/OBS CARE 10/26MIN Diagnoses Bilateral pneumonia J18.9 Cellulitis and abscess of left leg L03.116; L02.416 Thrombocytopenia D69.6 C. difficile diarrhea A04.72
--- NOTE | 2025-01-23 10:52 | Hospitalist Progress Note ---
Date of Service January 23, 2025 Assessment & Plan (1) Bilateral pneumonia: (2) Cellulitis and abscess of left leg: (3) Thrombocytopenia: (4) C. difficile diarrhea: Plan This is an 89 year old gentleman with past medical history of GERD, AAA, thoracic aortic aneurysm repair, hx CVA, HTN, HFrEF, HLD, BPH, PVD, CLL, OAB who presented to the ED on 01/15 from an assisted living facility for weakness and productive cough x 4 days. CXR with bilateral pneumonia. MRSA nares was negative. Initially treated with Unasyn and IV doxycycline which has been converted to p.o. Augmentin and doxycycline - he has completed this course. Blood Cultures negative, finalized. #Pneumonia/Likely aspiration pneumonia/COPD/weakness Sputum culture contaminated -> given clinical improvement, defer repeat. Blood cultures no growth Concerns for aspiration, PEDIATRIC CRITICAL CARE NURSE consulted. Video swallow study showing silent aspirations with thin liquidsSLP recommending nectar thick liquids easy to chew diet Supportive care: FV, Mucinex BID, Duoneb prn for shortness of breath or wheezing. Continue home inhalers and Montelukast for hx of COPD PT/OT consulted-> recommending rehab. CM following - awaiting accepting facility stable on room air #History of C diff/Loose stools. patient w/ hx of C diff in past per advocate. C diff gene positive, toxin negative --> Given + symptoms plan to treat with Vancomycin q6h x 10 days. Continue Probiotic. Stool frequency significantly decreased. Should be on prophylactic vanco in the future with antibiotics. #Cellulitis, LLE Resolved Doxy/Augmentin as above. #CKD/SANDY Patient w/ hx of CKD, baseline creatinine recently appears 1-2. In past ~2-2.2 Creatinine upon admission 1.77, stable at 1.39. s/p 1 L NSS #Thrombocytopenia/CLL CBC upon admission w/ plt count at 90; CBC w/ increase of plt to 158 He has a history of ITP like thrombocytopenia and follows with heme-onc for treatment of CLL. recent CTAP 08/2024 -> no findings to suggestive cirrhosis at that time. No current treatment for CLL. Follow CBC q3D and if worsens, consult hematology #CAD/HFrEF/HTN/CVA/ALTAGRACIA s/p carotid endarterectomy/thoracic aortic aneurysm repair On Carvedilol, Valsartan, Atorvastatin outpatient. 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 Caution IVF given reduced EF. #malnutrition RD consulted, continue byron andres BMI 19 #Neuropathy: continue Gabapentin #OAB - Continue oxybutynin DVT prophylaxis: Eliquis 2.5mg twice daily (on for hx of CVA) Dispo: continued inpatient stay, planning for rehab placement Code: DNR/DNI, patient advocate brought in documentation stating this was the patient's code status on 01/16. Shikha, patient advocate, updated by phone 01/20 and in person 01/21 Admission and Anticipated Discharge Date Admission Date: January 15, 2025 Supervising Physician Co-Signing Physician Notes PA Supervision Note: I did not personally see or examine the patient today, but I verified all red[place] points of MARION Sepulveda's assessment and plan with the following exceptions/additions: None Subjective sitting up in the chair, reports feeling well still with cough, but not getting alot up - RN reports has been using flutter valve Review of Systems Review of Systems: All systems reviewed & are unremarkable except as noted in Subjective Physical Exam Physical Exam: General: NAD, vitals as above,lying in bed Pulm: breathing unlabored, lungs CTA, no cough during my encounter. CV: well perfused, RRR extremities: moves all extremities. Skin tear to right quiñonez able to make needs known Results & Data Results & Data Vital Signs (Past 12 Hours) Vital Signs Temp Pulse Resp BP Pulse Ox O2 Del Method 01/23/25 09:06 73 110/63 01/23/25 07:15 Room Air 01/23/25 07:13 97.9 F 62 16 128/65 94 Room Air PG Care Time/CCT Total # of Minutes Spent Total Time Spent with Patient: Total time spent is greater than 50% in coordination of care (as documented) at patient's floor/unit and/or counseling patient: Coding Level of Care Code 46754 SUB INP/OBS CARE 10/26MIN Diagnoses Bilateral pneumonia J18.9 Cellulitis and abscess of left leg L03.116; L02.416 Thrombocytopenia D69.6 C. difficile diarrhea A04.72
[2025-01-24 08:03] LABS: Hematocrit (blood only) 38.4 % (42.0-52.0); Hemoglobin 12.7 g/dl (14.0-18.0); Mean Corpuscular Hemoglobin 30.2 pg (25.0-34.0); Mean Corpuscular Hgb Conc 33.1 g/dL (32.0-36.0); Mean Corpuscular Volume 91.2 fL (80.0-100.0); Mean Platelet Volume 11.2 fL (9.4-12.4); Platelet Count 201 K/uL (130-400); RDW Coefficient of Variation 14.4 % (11.5-14.5); RDW Standard Deviation 47.2 fL (36.4-46.3); Red Blood Count 4.21 M/uL (4.70-6.10)
[2025-01-24 08:33] LABS: Creatinine Clr Calc Pharmacy 29.3 ml/min
[2025-01-24 09:04] LABS: ALC (manual) 0.57 K/uL (1.2-3.4); ANC (manual) 6.48 K/uL (1.4-6.5); Eosinophils # (manual) 0.33 K/uL (0-0.50); Eosinophils % (manual) 4 %; Lymphocytes # (manual) 0.57 K/uL (1.2-3.4); Lymphocytes % (manual) 7 %; Monocytes # (manual) 0.82 K/uL (0.11-0.59); Monocytes % (manual) 10 %; Neutrophils # (manual) 6.48 K/uL (1.40-6.50); Neutrophils % (manual) 79 %; Ovalocytes 1+
[2025-01-24] MEDS: SODIUM CHLOR 7% 4 ML NEB NEB SCH (13:40)
--- NOTE | 2025-01-24 13:48 | Hospitalist Progress Note ---
Date of Service January 24, 2025 Assessment & Plan (1) Bilateral pneumonia: (2) Cellulitis and abscess of left leg: (3) Thrombocytopenia: (4) C. difficile diarrhea: Plan This is an 89 year old gentleman with past medical history of GERD, AAA, thoracic aortic aneurysm repair, hx CVA, HTN, HFrEF, HLD, BPH, PVD, CLL, OAB who presented to the ED on 01/15 from an assisted living facility for weakness and productive cough x 4 days. CXR with bilateral pneumonia. MRSA nares was negative. Initially treated with Unasyn and IV doxycycline which has been converted to p.o. Augmentin and doxycycline - he has completed this course. Blood Cultures negative, finalized. #Pneumonia/Likely aspiration pneumonia/COPD/weakness Sputum culture contaminated -> given clinical improvement, defer repeat. Blood cultures no growth Concerns for aspiration, TOP LIFT AND AUTOMATIC WINDOW REPAIRER consulted. Video swallow study showing silent aspirations with thin liquidsSLP recommending nectar thick liquids easy to chew diet Supportive care: FV, Mucinex BID, Duoneb prn for shortness of breath or wheezing. Continue home inhalers and Montelukast for hx of COPD PT/OT consulted-> recommending rehab. CM following - awaiting accepting facility stable on room air add hypertonic saline nebs to try to increase sputum production. Will need follow-up chest x-ray in 4 to 6 weeks #History of C diff/Loose stools. patient w/ hx of C diff in past per advocate. C diff gene positive, toxin negative --> Given + symptoms plan to treat with Vancomycin q6h x 10 days. Continue Probiotic. Stool frequency significantly decreased. Should be on prophylactic vanco in the future with antibiotics. #Cellulitis, LLE Resolved -Doxy/Augmentin as above. #CKD/SANDY Patient w/ hx of CKD, baseline creatinine recently appears 1-2. In past ~2-2.2 Creatinine upon admission 1.77, stable at 1.39. s/p 1 L NSS #Thrombocytopenia/CLL CBC upon admission w/ plt count at 90; CBC w/ increase of plt to 202 He has a history of ITP like thrombocytopenia and follows with heme-onc for treatment of CLL. recent CTAP 08/2024 -> no findings to suggestive cirrhosis at that time. No current treatment for CLL. Follow CBC q3D and if worsens, consult hematology #CAD/HFrEF/HTN/CVA/ALTAGRACIA s/p carotid endarterectomy/thoracic aortic aneurysm repair On Carvedilol, Valsartan, Atorvastatin outpatient. 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 Caution IVF given reduced EF. #malnutrition RD consulted, continue protein shakes BMI 19 #Neuropathy: continue Gabapentin #OAB - Continue oxybutynin DVT prophylaxis: Eliquis 2.5mg twice daily (on for hx of CVA) Dispo: continued inpatient stay, planning for rehab placement Code: DNR/DNI, patient advocate brought in documentation stating this was the patient's code status on 01/16. Shikha, patient advocate, updated by phone 01/20 and in person 01/21 & 01/24 Admission and Anticipated Discharge Date Admission Date: January 15, 2025 Supervising Physician Co-Signing Physician Notes PA Supervision Note: I did not personally see or examine the patient today, but I verified all red[place] points of MARION Sepulveda's assessment and plan with the following exceptions/additions: None Subjective Patient seen sitting up in the chair, patient advocate, Shihka at bedside. Patient has no acute complaints besides the fact that he is not being served toast for breakfast. He reports that his cough is decreased, he has not been coughing up much mucus. As a stated in the room longer his cough is quite junky sounding but nonproductive. He had a large formed stool this morning. Review of Systems Review of Systems: All systems reviewed & are unremarkable except as noted in Subjective Physical Exam Physical Exam: General: NAD, vitals as above,l sitting up in the chair Pulm: breathing unlabored, lungs Diminished in the bases, congested cough but no sputum production CV: well perfused, RRR extremities: moves all extremities. Skin tear to right and leftshin able to make needs known Results & Data Results & Data Vital Signs (Past 12 Hours) Vital Signs Temp Pulse Resp BP Pulse Ox O2 Del Method FiO2 01/24/25 13:40 57 L 19 94 Room Air 21 01/24/25 08:15 Room Air 01/24/25 07:14 97.9 F 67 18 161/81 H 93 Room Air Laboratory Results CBC and kidney function reviewed PG Care Time/CCT Total # of Minutes Spent Total Time Spent with Patient: Total time spent is greater than 50% in coordination of care (as documented) at patient's floor/unit and/or counseling patient: Coding Level of Care Code 09407 SUB INP/OBS CARE 2/35MIN Diagnoses Bilateral pneumonia J18.9 Cellulitis and abscess of left leg L03.116; L02.416 Thrombocytopenia D69.6 C. difficile diarrhea A04.72
[2025-01-24] MEDS: ACETAMINOPHEN 325 MG TAB PO PRN (14:40)
--- NOTE | 2025-01-25 11:15 | Hospitalist Progress Note ---
Date of Service January 25, 2025 Assessment & Plan (1) Bilateral pneumonia: (2) Cellulitis and abscess of left leg: (3) Thrombocytopenia: (4) C. difficile diarrhea: Plan This is an 89 year old gentleman with past medical history of GERD, AAA, thoracic aortic aneurysm repair, hx CVA, HTN, HFrEF, HLD, BPH, PVD, CLL, OAB who presented to the ED on 01/15 from an assisted living facility for weakness and productive cough x 4 days. CXR with bilateral pneumonia. MRSA nares was negative. Initially treated with Unasyn and IV doxycycline which has been converted to p.o. Augmentin and doxycycline - he has completed this course. Blood Cultures negative, finalized. #Pneumonia/Likely aspiration pneumonia/COPD/weakness Concerns for aspiration, ENVIRONMENTAL HEALTH AIDE consulted. Video swallow study showing silent aspirations with thin liquidsSLP recommending nectar thick liquids easy to chew diet Supportive care: FV, Mucinex BID, Duoneb prn for shortness of breath or wheezing. Continue home inhalers and Montelukast for hx of COPD PT/OT consulted-> recommending rehab. CM following - awaiting accepting facility Continue hypertonic saline nebs to try to increase sputum production. follow-up chest x-ray in 4 to 6 weeks #History of C diff/Loose stools. patient w/ hx of C diff in past per advocate. C diff gene positive, toxin negative --> Given + symptoms plan to treat with Vancomycin q6h x 10 days (finishes course 01/27) Continue Probiotic. Stool frequency significantly decreased. Should be on prophylactic vanco in the future with antibiotics. #Cellulitis, LLE Resolved -Doxy/Augmentin as above. #CKD/SANDY Patient w/ hx of CKD, baseline creatinine recently appears 1-2. In past ~2-2.2 Creatinine upon admission 1.77, stable at 1.39. s/p 1 L NSS #Thrombocytopenia/CLL CBC upon admission w/ plt count at 90; CBC w/ increase of plt to 202 He has a history of ITP like thrombocytopenia and follows with heme-onc for treatment of CLL. recent CTAP 08/2024 -> no findings to suggestive cirrhosis at that time. No current treatment for CLL. Follow CBC q3D and if worsens, consult hematology #CAD/HFrEF/HTN/CVA/ALTAGRACIA s/p carotid endarterectomy/thoracic aortic aneurysm repair On Carvedilol, Valsartan, Atorvastatin outpatient. 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 Caution IVF given reduced EF. #malnutrition RD consulted, continue protein shakes BMI 19 #Neuropathy: continue Gabapentin #OAB - Continue oxybutynin DVT prophylaxis: Eliquis 2.5mg twice daily (on for hx of CVA) Dispo: continued inpatient stay, planning for rehab placement Code: DNR/DNI, patient advocate brought in documentation stating this was the patient's code status on 01/16. Shikha, patient advocate, updated by phone 01/20 and in person 01/21 & 01/24 Admission and Anticipated Discharge Date Admission Date: January 15, 2025 Supervising Physician Co-Signing Physician Notes MARION Supervision Note: I did not personally see or examine the patient today, but I verified all [place] points of MARION Sepulveda's assessment and plan with the following exceptions/additions: None Subjective patient seen sitting up in the chair - denies cough today reports he is feeling well Review of Systems Review of Systems: All systems reviewed & are unremarkable except as noted in Subjective Physical Exam Physical Exam: General: NAD, vitals as above,l sitting up in the chair Pulm: breathing unlabored, lungs Diminished in the bases, no cough during my encounter CV: well perfused, RRR extremities: moves all extremities. Skin tear to right and leftshin able to make needs known Results & Data Results & Data Vital Signs (Past 12 Hours) Vital Signs Temp Pulse Resp BP Pulse Ox O2 Del Method 01/25/25 08:05 97.7 F 69 16 153/88 H 94 Room Air PG Care Time/CCT Total # of Minutes Spent Total Time Spent with Patient: Total time spent is greater than 50% in coordination of care (as documented) at patient's floor/unit and/or counseling patient: Coding Level of Care Code 41188 SUB INP/OBS CARE 10/26MIN Diagnoses Bilateral pneumonia J18.9 Cellulitis and abscess of left leg L03.116; L02.416 Thrombocytopenia D69.6 C. difficile diarrhea A04.72
[2025-01-26] MEDS ORDERED: SODIUM CHLOR 7% 4 ML NEB NEB PRN (10:49)
--- NOTE | 2025-01-26 10:51 | Hospitalist Progress Note ---
Date of Service January 26, 2025 Assessment & Plan (1) Bilateral pneumonia: (2) Cellulitis and abscess of left leg: (3) Thrombocytopenia: (4) C. difficile diarrhea: Plan This is an 89 year old gentleman with past medical history of GERD, AAA, thoracic aortic aneurysm repair, hx CVA, HTN, HFrEF, HLD, BPH, PVD, CLL, OAB who presented to the ED on 01/15 from an assisted living facility for weakness and productive cough x 4 days. CXR with bilateral pneumonia. MRSA nares was negative. Initially treated with Unasyn and IV doxycycline which has been converted to p.o. Augmentin and doxycycline - he has completed this course. Blood Cultures negative, finalized. #Pneumonia/Likely aspiration pneumonia/COPD/weakness Concerns for aspiration, SED MIDDLE SCHOOL TEACHER consulted. Video swallow study showing silent aspirations with thin liquidsSLP recommending nectar thick liquids easy to chew diet Supportive care: FV, Mucinex BID, Duoneb prn for shortness of breath or wheezing. Continue home inhalers and Montelukast for hx of COPD PT/OT consulted-> recommending rehab. CM following - awaiting accepting facility Hypertonic saline nebs now prn as cough improving follow-up chest x-ray in 4 to 6 weeks #History of C diff/Loose stools. patient w/ hx of C diff in past per advocate. C diff gene positive, toxin negative --> Given + symptoms plan to treat with Vancomycin q6h x 10 days (finishes course 01/27) Continue Probiotic. Stool frequency significantly decreased. Should be on prophylactic vanco in the future with antibiotics. #Cellulitis, LLE Resolved -Doxy/Augmentin as above. #CKD/SANDY Patient w/ hx of CKD, baseline creatinine recently appears 1-2. In past ~2-2.2 Creatinine upon admission 1.77, stable at 1.39. s/p 1 L NSS #Thrombocytopenia/CLL CBC upon admission w/ plt count at 90; CBC w/ increase of plt to 202 He has a history of ITP like thrombocytopenia and follows with heme-onc for CLL (no current treatment). recent CTAP 08/2024 -> no findings to suggestive cirrhosis at that time. #CAD/HFrEF/HTN/CVA/ALTAGRACIA s/p carotid endarterectomy/thoracic aortic aneurysm repair On Carvedilol, Valsartan, Atorvastatin outpatient. 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 Caution IVF given reduced EF. #malnutrition RD consulted, continue protein shakes BMI 19 #Neuropathy: continue Gabapentin #OAB - Continue oxybutynin DVT prophylaxis: Eliquis 2.5mg twice daily (on for hx of CVA) Dispo: continued inpatient stay, planning for rehab placement Code: DNR/DNI, patient advocate brought in documentation stating this was the patient's code status on 01/16. Shikha, patient advocate, updated by phone 01/20 and in person 01/21 & 01/24 Admission and Anticipated Discharge Date Admission Date: January 15, 2025 Supervising Physician Co-Signing Physician Notes Attending Attestation - Chart reviewed, care plan d/w MARION Sepulveda. I agree w/ the red[place] components of her documentation. Teto Crawley MD Subjective patient seen sitting up in bed, very frustrated with being here still - complaints with his room no physical complaints no cough Review of Systems Review of Systems: All systems reviewed & are unremarkable except as noted in Subjective Physical Exam Physical Exam: General: NAD, vitals as above,l sitting up in the bed Pulm: breathing unlabored, no cough during my encounter CV: well perfused, extremities: moves all extremities. Skin tear to right and leftshin able to make needs known Results & Data Results & Data Vital Signs (Past 12 Hours) Vital Signs Temp Pulse Resp BP Pulse Ox O2 Del Method 01/26/25 08:00 Room Air 01/26/25 07:17 65 18 91 Room Air 01/26/25 07:05 97.9 F 67 18 155/77 H 91 Room Air PG Care Time/CCT Total # of Minutes Spent Total Time Spent with Patient: Total time spent is greater than 50% in coordination of care (as documented) at patient's floor/unit and/or counseling patient: Coding Level of Care Code 78396 SUB INP/OBS CARE 10/26MIN Diagnoses Bilateral pneumonia J18.9 Cellulitis and abscess of left leg L03.116; L02.416 Thrombocytopenia D69.6 C. difficile diarrhea A04.72
[2025-01-27 07:51] LABS: Creatinine Clr Calc Pharmacy 28.3 ml/min
[2025-01-27] MEDS ORDERED: NYSTATIN POWDER 15GM BTL EXT PRN (12:10)
--- NOTE | 2025-01-27 14:24 | Hospitalist Progress Note ---
Date of Service January 27, 2025 Assessment & Plan (1) Bilateral pneumonia: (2) Cellulitis and abscess of left leg: (3) Thrombocytopenia: (4) C. difficile diarrhea: Plan This is an 89 year old gentleman with past medical history of GERD, AAA, thoracic aortic aneurysm repair, hx CVA, HTN, HFrEF, HLD, BPH, PVD, CLL, OAB who presented to the ED on 01/15 from an assisted living facility for weakness and productive cough x 4 days. CXR with bilateral pneumonia. MRSA nares was negative. Initially treated with Unasyn and IV doxycycline which has been converted to p.o. Augmentin and doxycycline - he has completed this course. Blood Cultures negative, finalized. #Pneumonia/Likely aspiration pneumonia/COPD/weakness Concerns for aspiration, TRAVELING SECRETARY consulted. Video swallow study showing silent aspirations with thin liquidsSLP recommending nectar thick liquids easy to chew diet Supportive care: FV, Mucinex BID, Duoneb prn for shortness of breath or wheezing. Continue home inhalers and Montelukast for hx of COPD PT/OT consulted-> recommending rehab. CM following - awaiting accepting facility Hypertonic saline nebs now prn as cough improving follow-up chest x-ray in 4 to 6 weeks #History of C diff/Loose stools. patient w/ hx of C diff in past per advocate. C diff gene positive, toxin negative --> Given + symptoms completed 10 day course of PO vanco. Stools are formed. Should be on prophylactic vanco in the future with antibiotics. #Cellulitis, LLE Resolved -Doxy/Augmentin as above. #CKD/SANDY Patient w/ hx of CKD, baseline creatinine recently appears 1-2. In past ~2-2.2 Creatinine upon admission 1.77, stable at 1.39. s/p 1 L NSS #Thrombocytopenia/CLL CBC upon admission w/ plt count at 90; CBC w/ increase of plt to 202 He has a history of ITP like thrombocytopenia and follows with heme-onc for CLL (no current treatment). recent CTAP 08/2024 -> no findings to suggestive cirrhosis at that time. #CAD/HFrEF/HTN/CVA/ALTAGRACIA s/p carotid endarterectomy/thoracic aortic aneurysm repair On Carvedilol, Valsartan, Atorvastatin outpatient. 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 Caution IVF given reduced EF. #malnutrition RD consulted, continue protein shakes BMI 19 #Neuropathy: continue Gabapentin #OAB - Continue oxybutynin DVT prophylaxis: Eliquis 2.5mg twice daily (on for hx of CVA) Dispo: continued inpatient stay, planning for rehab placement Code: DNR/DNI, patient advocate brought in documentation stating this was the patient's code status on 01/16. Shikha, patient advocate, updated by phone 01/20 and in person 01/21 & 01/24 Admission and Anticipated Discharge Date Admission Date: January 15, 2025 Supervising Physician Co-Signing Physician Notes Attending Attestation - Chart reviewed, care plan d/w MARION Sepulveda. I agree w/ the [place] components of her documentation. Teto Crawley MD Subjective seen sitting up in bed, no complaints, more pleasant today no cough Review of Systems Review of Systems: All systems reviewed & are unremarkable except as noted in Subjective Physical Exam Physical Exam: General: NAD, vitals as above,l sitting up in the chair Pulm: breathing unlabored, lungs Diminished in the bases, no cough during my encounter CV: well perfused, RRR extremities: moves all extremities. Skin tear to right and leftshin able to make needs known Results & Data Results & Data Vital Signs (Past 12 Hours) Vital Signs Temp Pulse Pulse Resp BP Pulse Ox O2 Del Method 01/27/25 11:49 97.9 F 63 13 110/60 95 Room Air 01/27/25 08:05 Room Air 01/27/25 07:06 98.2 F 60 16 143/72 H 93 Room Air Laboratory Results cr reviewed PG Care Time/CCT Total # of Minutes Spent Total Time Spent with Patient: Total time spent is greater than 50% in coordination of care (as documented) at patient's floor/unit and/or counseling patient: Coding Level of Care Code 76120 SUB INP/OBS CARE 10/26MIN Diagnoses Bilateral pneumonia J18.9 Cellulitis and abscess of left leg L03.116; L02.416 Thrombocytopenia D69.6 C. difficile diarrhea A04.72
[2025-01-28 07:17] VITALS: BP 154/73; PULSE 70; RESP 18; TEMP 98.1; O2SAT 93
--- NOTE | 2025-01-28 17:12 | Discharge Summary ---
Discharge Summary Date of Service January 28, 2025 Principal Dx & Hospital Course #1 = Principal Diagnosis (1) Bilateral pneumonia: (2) Cellulitis and abscess of left leg: (3) Thrombocytopenia: (4) C. difficile diarrhea: Plan This is an 89 year old gentleman with past medical history of GERD, AAA, thoracic aortic aneurysm repair, hx CVA, HTN, HFrEF, HLD, BPH, PVD, CLL, OAB who presented to the ED on 01/15 from an assisted living facility for weakness and productive cough x 4 days. CXR with bilateral pneumonia. MRSA nares was negative. Initially treated with Unasyn and IV doxycycline which has been converted to p.o. Augmentin and doxycycline - he has completed this course. Blood Cultures negative, finalized. #Pneumonia/Likely aspiration pneumonia/COPD/weakness Concerns for aspiration, CHIEF HYDROELECTRIC STATION OPERATOR consulted. Video swallow study showing silent aspirations with thin liquidsSLP recommending nectar thick liquids easy to chew diet Supportive care: FV, Mucinex BID, Duoneb prn for shortness of breath or wheezing. Continue home inhalers and Montelukast for hx of COPD PT/OT consulted-> recommending rehab. CM following - return to subacute snf for rehab follow-up chest x-ray in 4 to 6 weeks #History of C diff/Loose stools. patient w/ hx of C diff in past per advocate. C diff gene positive, toxin negative --> Given + symptoms completed 10 day course of PO vanco. Stools are formed. Should be on prophylactic vanco in the future with antibiotics. #Cellulitis, LLE Resolved -Doxy/Augmentin completed as above. #CKD/SANDY Patient w/ hx of CKD, baseline creatinine recently appears 1-2. In past ~2-2.2 Creatinine upon admission 1.77, stable at 1.39. #Thrombocytopenia/CLL CBC upon admission w/ plt count at 90; CBC w/ increase of plt to 202 He has a history of ITP like thrombocytopenia and follows with heme-onc for CLL (no current treatment). recent CTAP 08/2024 -> no findings to suggestive cirrhosis at that time. #CAD/HFrEF/HTN/CVA/ALTAGRACIA s/p carotid endarterectomy/thoracic aortic aneurysm repair On Carvedilol, Valsartan, Atorvastatin outpatient. 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 Caution IVF given reduced EF. #malnutrition RD consulted, continue protein shakes BMI 19 #Neuropathy: continue Gabapentin #OAB - Continue oxybutynin DVT prophylaxis: Eliquis 2.5mg twice daily (on for hx of CVA) Code: DNR/DNI, patient advocate brought in documentation stating this was the patient's code status on 01/16. Notes For Next Care Provider need to reinforce and follow up safe swallowing techniques Admission HPI Per Admitting Provider This is an 89 year old gentleman with past medical history of GERD, AAA, hx CVA, HTN, HLD, BPH, PVD who presented to the ED on 01/15 from an assisted living facility for weakness. Patient was seen and examined this evening with his home care administrator at bedside. Patient poor historian and majority of history comes from patient advocate. Patient with a chronic cough for about a year but within the last about 4 days he has developed a productive wet cough. Patient denies chest pain or shortness of breath. Reports he has "pain all over" but would not specify further. Patient advocate reports he has had increased confusion and had slid off of his bed at his care facility. Advocate is concerned about his care. reports patient is mostly independent at baseline and works with PT/OT at his home. She was unaware of his bruising on his right leg and skin tear on his left leg. He denies any GI complaints or urinary symptoms. Patient does have a history of CLL and recently saw oncology who had noted him to be in remission. Patient also to see pulm outpatient given recurrent pneumonia. While in the ED, patient had a stable CBC, BMP w/ mild elevation of creatinine at 1.77. His urinalysis was negative. He had a negative left hip x ray and negative head CT. His CXR was concerning for bilateral pneumonia. He was given Doxycycline and Unasyn to cover for atypical coverage given a concern of aspiration. He was given 1 L of NSS and blood cultures are pending. Code discussion took place with patient and he confirms he is a full code. Per the patient advocate - discussion of palliative care has take place outpatient but they are not ready to move forward with that yet. Discharge Exam PT did not have hearing aids in tried to use stethoscope in his ears and speak in to diaphragm but did not work, his hearing aids were not charged Discharge Plan Discharge Items Patient Disposition: Transfer Detention Fac Reason For Visit: WEAKNESS Discharge Diagnosis: Pneumonia Activity: As commented below Activity Comment: work with therapy to get stronger Non-emergency contact: Primary Care Provider Call non-emergency contact if: you have any medication questions, your pain is not controlled and your temperature is above 101 Follow-up/Referrals: Cindi Clark DO [Primary Care Provider] - (follow up from discharge from rehab) Diet: Heart Healthy Diet Texture: Easy to Chew Liquid Consistency: [place] thick Addtl Attending Provider Instructions: Mr. Kline, You were hospitalized after having weakness at home - this was found to be from pneumonia. You were treated with antibiotics and subsequently developed C.diff. You completed your course of vancomycin for C.diff and now your stools are formed. You are going to rehab to get stronger! There was concerns that your pneumonia was from aspiration and aspiration was confirmed on video swallow study. For this reason, you were started on nectar thick, easy to chew diet. Recommendations: - prophylactic oral vancomycin with future antibiotics. - Continue nectar thick liquids No changes to your home medications. Thanks for allowing us to participate in your care! Pending Studies at Discharge: No Stand-Alone Forms: My [facility] Skilled Items Patient informed of condition?: Yes DNR: Yes Discharge Level of Care: Skilled Communicable Disease: No Discharge Prognosis: Stable Lines: None Urinary Catheter: No Medications and DC Order Prescriptions: Continued cholecalciferol (vitamin D3) [Vitamin D3] 50 mcg (2,000 unit) tablet 2,000 unit PO QAM Qty: 90 3RF diclofenac sodium [Voltaren Arthritis Pain] 1 % gel 4 g topical BID Qty: 100 2RF Rx Instructions: apply to legs/knees twice daily for pain hydrocortisone 2.5 % cream 1 applic topical BID PRN (Reason: skin irritation) Qty: 20 0RF potassium chloride 10 mEq tablet extended release 10 meq PO BID Qty: 60 5RF loperamide 2 mg tablet 2 mg PO DAILY PRN (Reason: loose stools) Qty: 30 2RF carvedilol 3.125 mg tablet 3.125 mg PO BID Qty: 60 5RF Rx Instructions: must administer with a meal/food atorvastatin 40 mg tablet 40 mg PO QAM Qty: 90 1RF Ensure Liquid 1 ea PO QPM Qty: 5688 3RF Rx Instructions: 1 drink daily IN EVENING gabapentin 100 mg capsule 100 mg PO HS Qty: 30 5RF montelukast 10 mg tablet 10 mg PO DAILY Qty: 30 2RF Trelegy Ellipta 100-62.5-25 mcg blister with device 1 inh inhalation DAILY Qty: 60 2RF fluticasone propionate 50 mcg/actuation spray,suspension 2 spray INTRANASAL BID Qty: 16 5RF (DME) lancets [OneTouch Delica Plus Lancet] 30 gauge misc See Rx Instructions .ROUTE .MEDSUPPLY Qty: 100 0RF Rx Instructions: As directed to check sugar when feeling lightheaded (DME) lancing device with lancets [OneTouch Delica Plus Lanc Dev] Kit See Rx Instructions .ROUTE .MEDSUPPLY Qty: 1 0RF Rx Instructions: As directed to check sugar when feeling lightheaded (DME) blood sugar diagnostic Strip See Rx Instructions .ROUTE .MEDSUPPLY Qty: 100 0RF Rx Instructions: As directed to check sugar when feeling lightheaded solifenacin [Vesicare] 5 mg tablet 5 mg PO QAM Qty: 90 3RF prochlorperazine maleate 10 mg tablet 10 mg PO Q6H PRN (Reason: Nausea) valsartan 40 mg tablet 20 mg PO DAILY Qty: 90 3RF Rx Instructions: 1/2 TABLET DOSE famotidine 40 mg Tablet 40 mg PO DAILY PRN (Reason: Acid Reflux) Refresh Optive Michael-3 (PF) 0.5-1-0.5 % Dropperette 1 drp OPB BID albuterol sulfate 90 mcg/actuation HFA aerosol inhaler 2 inh inhalation QID PRN (Reason: shortness of breath or cough) apixaban 2.5 mg tablet 2.5 mg PO AMHS acetaminophen 325 mg Tablet 650 mg PO Q4 MDD 3G PRN (Reason: Pain) acetaminophen 325 mg Tablet 650 mg PO Q4 MDD 3G PRN (Reason: TEMP>100) Refresh Optive Michael-3 (PF) 0.5-1-0.5 % Dropperette 1 drp OPHTHALMIC (EYE) Q8 PRN (Reason: Dry Eyes) amoxicillin 500 mg capsule 2,000 mg PO DIRECTED PRN (Reason: Dental Appointment) Rx Instructions: "Give 4 capsule by mouth as neede for prophylaxis; give 1 hour prior to dental visit." Discontinued acetaminophen [Pain Reliever (acetaminophen)] 325 mg tablet 650 mg PO BID Qty: 60 5RF Discharge Orders: Discharge Order (Routine); Ordered 01/28/25 Ordered By: Momo Spencer/Other Patient Handouts: Preventing Pneumonia, C. Diff Prevent Infection Admission Data Admit Date/Time: 01/15/25 18:05 Attending Provider: Momo Covington Admit Provider: Momo Covington Primary Care Provider: Cindi Clark Other Providers: Momo Covington; [place],[facility]; [place],[facility]; [place],[facility] Other Interventions: Discharge Summary Assessment (RN) Last Done: 01/28/25 10:43 Hospital Stay Data Consultations 01/15/25 17:38 ED Decision to Admit Stat Diagnostic Imagining Performed 01/15/25 14:25 CT head/brain wo con Stat 01/20/25 09:30 [place] video swallow Routine Pending Results Patient Have Any Pending Studies at Discharge: No Discharge Instructions Given to Patient (Per Discharging Provider) Mr. Kline, Zac were hospitalized after having weakness at home - this was found to be from pneumonia. You were treated with antibiotics and subsequently developed C.diff. You completed your course of vancomycin for C.diff and now your stools are formed. You are going to rehab to get stronger! There was concerns that your pneumonia was from aspiration and aspiration was confirmed on video swallow study. For this reason, you were started on nectar thick, easy to chew diet. Recommendations: - prophylactic oral vancomycin with future antibiotics. - Continue nectar thick liquids No changes to your home medications. Thanks for allowing us to participate in your care! Total Time Total Time Spent Total Time Spent (In Minutes): It required greater than 30 minutes to prepare this patient for discharge. Coding Level of Care Code 78713 INP/OBS DISCH >30 MIN Diagnoses Bilateral pneumonia J18.9 Cellulitis and abscess of left leg L03.116; L02.416 Thrombocytopenia D69.6 C. difficile diarrhea A04.72
== END 2025-01-28 11:17 | DRG 177 ==
LOC: SUATTDRO → ED 14:13 → EDINP 18:05 → SUATTDRO 18:05 → 3W 20:49

== ENCOUNTER 2025-09-28 21:10 | Inpatient (IN) ==
[2025-09-28] MEDS ORDERED: VANCOMYCIN CONSULT ACTIVE PRN (21:45)
--- NOTE | 2025-09-28 21:51 | Emergency Department Note ---
History of Present Illness General Chief complaint: Lethargic Stated complaint: LETHARGIC, AMS, COUGH, HYPOXIA Time Seen by Provider: 09/28/25 21:23 History of Present Illness This is an 89 year old gentleman with past medical history of GERD, AAA, hx CVA, HTN, HLD, BPH, PVD with dementia presents to the ER from the residential for low O2 sats and fever. His roommate is currently sick with unknown illness per healthcare customer service. 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 Patient is DNR DNI. Patient is prone to aspiration pneumonia. His last urine culture had ESBL. History was obtained from the healthcare customer service. Home Medications Medication Instructions Recorded Confirmed Type blood sugar diagnostic #100 ea 10/09/23 04/08/25 Rx lancets 30 gauge (SyntargaTouch DelTunii #100 ea 10/09/23 04/08/25 Rx Plus Lancet) lancing device with lancets kit #1 ea 10/09/23 04/08/25 Rx (SyntargaTouch Delica Plus Lancing Device kit) valsartan 40 mg tablet 20 mg (1/2 x 40 mg) PO DAILY #90 01/01/24 09/28/25 Rx tabs cholecalciferol (vitamin D3) 50 2,000 unit PO QAM #90 tabs 05/14/24 09/28/25 Rx mcg (2,000 unit) tablet (Vitamin D3) diclofenac sodium 1 % topical gel 4 g topical BID #100 grams 05/14/24 09/28/25 Rx (Voltaren Arthritis Pain) carboxymethyl 0.5 %-glycerin 1 1 drp OPB BID Dry Eyes 05/28/24 09/28/25 History %-polysorb 80 0.5 %-PF eye dropperette (Refresh Optive Michael-3 (PF)) famotidine 40 mg tablet 40 mg PO HS 05/28/24 09/28/25 History potassium chloride 10 mEq 10 meq PO BID #60 tabs 05/29/24 09/28/25 Rx tablet,extended release acetaminophen 325 mg tablet 650 mg PO Q4 PRN TEMP>100/PAIN 09/10/24 09/28/25 History apixaban 2.5 mg tablet 2.5 mg PO AMHS 09/10/24 09/28/25 History atorvastatin 40 mg tablet 40 mg PO QAM #90 tabs 10/29/24 09/28/25 Rx carvedilol 3.125 mg tablet 3.125 mg PO BID #60 tabs 10/29/24 09/28/25 Rx montelukast 10 mg tablet 10 mg PO DAILY #30 tabs 01/01/25 09/28/25 Rx Flutter Valve #1 ea 04/10/25 04/10/25 Rx nebulizer accessories #1 ea 04/10/25 04/10/25 Rx nebulizers (Aeroneb Go Nebulizer) #1 ea 04/10/25 04/10/25 Rx sodium chloride 7 % for 1 inh inhalation BID #240 mL 04/10/25 09/28/25 Rx nebulization methenamine hippurate 1 gram tablet 1 g PO BID #180 tabs 08/06/25 09/28/25 Rx acetaminophen 650 mg rectal 650 mg NE Q4H PRN Fever >100 08/17/25 09/28/25 History suppository bisacodyl 10 mg rectal suppository 10 mg NE DAILY PRN CONSTIAPTION 08/17/25 09/28/25 History (Dulcolax (bisacodyl)) magnesium hydroxide 400 mg/5 mL 30 ml PO DAILY PRN Constipation 08/17/25 09/28/25 History oral suspension (Milk of Magnesia) ondansetron 4 mg disintegrating 4 mg PO Q8H PRN Nausea 08/17/25 09/28/25 History tablet acetaminophen 325 mg tablet 650 mg PO TID 09/28/25 09/28/25 History (Tylenol) albuterol sulfate 90 mcg/actuation 2 puff inhalation Q6H PRN SHORT OF 09/28/25 09/28/25 History aerosol inhaler BREATH/COUGH amoxicillin 500 mg capsule 2,000 mg PO DIRECTED PRN 1 HR 09/28/25 09/28/25 History PRIOR TO DENTAL PROCEDURES arformoterol 15 mcg/2 mL solution 15 mcg inhalation BID 09/28/25 09/28/25 History for nebulization (Brovana) cranberry extract 500 mg capsule 500 mg PO QAM 09/28/25 09/28/25 History fluticasone propionate 50 2 spray intranasal DAILY 09/28/25 09/28/25 History mcg/actuation nasal spray,suspension tiotropium bromide 2.5 1 puff inhalation DAILY 09/28/25 09/28/25 History mcg/actuation mist for inhalation (Spiriva Respimat) tramadol 50 mg tablet 50 mg PO Q6H PRN Pain, Severe 09/28/25 09/28/25 History Allergies Allergy/AdvReac Type Severity Reaction Status Date / Time KVNG Inhibitors AdvReac Intermediate Cough Verified 09/28/25 22:32 codeine AdvReac Mild Nausea Verified 09/28/25 22:32 Past Med/Surg History Problem List (Updated 09/28/25 @ 23:15 by Annia Le PA-C) Rhinovirus infection (Acute) Pneumonia (Acute) Sepsis (Acute) Frequent UTI (Chronic) Urinary symptom or sign Bronchiectasis Ex-smoker Elevated hemidiaphragm Chronic bronchitis Irritated seborrheic keratosis Sensorineural hearing loss (SNHL) of right ear with restricted hearing of left ear 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 of right ear Chronic otitis media with effusion, bilateral PVD (peripheral vascular disease) BPH w urinary obs/LUTS (Chronic) Urinary retention (Chronic) COPD (chronic obstructive pulmonary disease) Constipation Gait abnormality AAA (abdominal aortic aneurysm) Arteriosclerosis of carotid artery Gout GERD (gastroesophageal reflux disease) Hyperlipidemia Hypertension CAD (coronary artery disease) Nonobstructive per cardio records (pt denies cardiac cath per 01/18/22 cardio note) Cardiomyopathy EF 35-40% per 05/2023 ECHO (EF 60-65% on 2020 ECHO) CLL (chronic lymphocytic leukemia) (Acute) Osteoporosis Medical History C. difficile diarrhea Thrombocytopenia CKD (chronic kidney disease) CVA (cerebral vascular accident) cardio-embolic in 2022. PFO. On anticoagulation since then History of Clostridium difficile infection Atherosclerosis Left inguinal hernia History of stroke Initial stroke 2007- felt secondary to carotid disease (s/p left CEA) Possible second CVA shortly after first CVA Per records- CVA 10/23/20 Embolic strokes 05/10/2023 No residual effects Right bundle branch block Allergic reaction caused by a drug Carotid artery disease S/p left carotid endarterectomy (2013) Aortic aneurysm - S/p TEVAR (2016) - Per chest CTA 05/16/23- Stable Bifascicular block Chronic, dating back to at least 08/2018 per chart review History of seizure [place] r/t hypoglycemic episodes (last ) Hyperlipidemia Hypertension Surgical History S/P total right hip arthroplasty History of circumcision S/P left inguinal hernia repair (03/21/22) Recurrent left inguinal hernia repair. Dr. Wright H/O right inguinal hernia repair (08/03/20) Open right inguinal hernia repair. Dr. Wright 08/03/2020 Status post incision and drainage (06/26/20) incision and drainage in the office of the left posterior thigh abscess 06/26/20 Dr. Wright in office Status post thoracic aortic aneurysm repair (2016) Hip fracture requiring operative repair LEFT HIP History of right hip replacement History of left hip replacement Nausea and vomiting after administration of anesthetic agent Hx of nasal polypectomy History of hernia surgery LEFT INGUINAL 1980 History of cataract surgery RT/LEFT History of tonsillectomy 1943 H/O thoracic aortic aneurysm repair History of carotid endarterectomy LEFT Family History Brother Colorectal cancer Stroke Family history of diabetes mellitus Father Heart disease Hypertension Stroke Other No family history of adverse response to anesthesia Denies family history of Ovarian cancer Prostate cancer Myocardial infarction Breast cancer Social History Smoking Status: Former smoker Tobacco Type: Cigarettes Age Started Using Tobacco: 20; Age Quit Using Tobacco: 74; packs per day: 0.75; Cigarettes Per Day: 10-15 cig/day; Second Hand Exposure: No; Do You Dip or Chew Tobacco: No; Hx Alcohol Use: No Hx Substance Use: No Preferred Language: Citizen Of [place] Communication Ability: Impaired Communication Ability Comment: Pt. 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: No Beliefs That Will Affect Care: None marital status: / Current Living Situation: Personal Care Facility Current Living Situation Comment: resident of [facility] current occupational status: retired How many Children do You have: 0 Feels Safe at Home: Yes Childhood Exposure to Second-Hand Smoke: Yes Dental Care, Regularly: Yes Physical Activity Frequency: 1-2 Times per Week Seatbelt Use: always Sunscreen Use: No Assistive Devices: Walker and Wheelchair Review of Systems A total of 10 systems reviewed and were otherwise negative Physical Exam Vital Signs Vital Signs - 24 hr 09/28/25 21:21 09/28/25 21:42 09/28/25 22:09 Temperature 37.5 C Temperature Source Oral Pulse Rate 88 82 Pulse Rate [Apical] Pulse Rate from SpO2 Sensor Pulse Rhythm [Apical] Pulse Strength [Apical] Respiratory Rate 27 H Respiratory Effort / Characteristics Respiratory Depth Respiratory Pattern Blood Pressure 132/76 162/86 H Blood Pressure [Right Arm] Blood Pressure Mean 94 108 Blood Pressure Mean [Right Arm] Blood Pressure Position [Right Arm] Pulse Oximetry 90 Oxygen Delivery Method Room Air Oxygen Flow Rate Sepsis Recent Fever Within 48 Hours Yes Sepsis New/Unexplained Change in Mental Status N/A Sepsis Action Taken by Nursing No Action Required 09/28/25 22:10 09/28/25 22:12 09/28/25 22:42 Temperature 39.1 C H Temperature Source Rectal Pulse Rate Pulse Rate [Apical] Pulse Rate from SpO2 Sensor 75 71 Pulse Rhythm [Apical] Pulse Strength [Apical] Respiratory Rate Respiratory Effort / Characteristics Respiratory Depth Respiratory Pattern Blood Pressure 162/86 H 172/95 H Blood Pressure [Right Arm] Blood Pressure Mean 111 120 Blood Pressure Mean [Right Arm] Blood Pressure Position [Right Arm] Pulse Oximetry 98 98 Oxygen Delivery Method Nasal Cannula Nasal Cannula Oxygen Flow Rate 4 4 Sepsis Recent Fever Within 48 Hours Sepsis New/Unexplained Change in Mental Status Sepsis Action Taken by Nursing 09/28/25 23:11 09/28/25 23:11 Temperature Temperature Source Pulse Rate Pulse Rate [Apical] 68 Pulse Rate from SpO2 Sensor Pulse Rhythm [Apical] Regular Pulse Strength [Apical] Normal Respiratory Rate 15 Respiratory Effort / Characteristics Non-Labored Respiratory Depth Normal Respiratory Pattern Regular Blood Pressure Blood Pressure [Right Arm] 106/53 L Blood Pressure Mean Blood Pressure Mean [Right Arm] 70 Blood Pressure Position [Right Arm] Lying Pulse Oximetry 99 99 Oxygen Delivery Method Room Air Nasal Cannula Oxygen Flow Rate 4 4 Sepsis Recent Fever Within 48 Hours Sepsis New/Unexplained Change in Mental Status Sepsis Action Taken by Nursing VITALS: Vitals are noted on the nurse's note and reviewed by myself. Vital signs febrile. GENERAL: Elderly male ill-appearing with dementia able to follow commands SKIN: The skin was without rashes, erythema, edema, or bruising. There is no tenting of the skin. Capillary reflex less than 2 seconds. HEAD: Normocephalic atraumatic. EARS: External auditory canals clear EYES: Pupils equal round and reactive to light and accommodation. Conjunctivae without injection, sclerae without icterus. Extraocular movements intact. NOSE: Patent, no discharge. MOUTH: Mucous membranes mildly dry. Pharynx without erythema or exudate. Uvula midline. Airway patent. Tongue does not deviate. NECK: Supple without nuchal rigidity. No lymphadenopathy. No thyromegaly. Cervical spine is nontender. No JVD. HEART: Regular rate and rhythm LUNGS: Mild diffuse end expiratory wheeze. No retractions or accessory muscle use. ABDOMEN: Positive bowel sounds x 4. Normal tympanic percussion. Soft, nontender, without masses or organomegaly. Quezada sign negative. No guarding or rebound tenderness. No CVA tenderness MUSCULOSKELETAL: No muscle atrophy, erythema, or edema noted. NEURO: Patient was alert and oriented to person place and time. Normal sensation to light and sharp touch. No focal neurological deficits. Course Administered Medications Azithromycin (Zithromax) 500 mg in 255 mls @ 127.5 mls/hr IV NOW ONE Stop: 09/29/25 00:41 Last Admin: 09/28/25 23:28 Dose: 127.5 mls/hr Documented By: vgr Discontinued Medications Albuterol (Albut/Ipratrop 3mg/0.5mg Neb 3 Ml Vial) 3 ml NEB NOW STA; Protocol Stop: 09/28/25 22:34 Last Admin: 09/28/25 22:54 Dose: 3 ml Documented By: [facility] Sodium Chloride (Nss) 500 mls @ 999 mls/hr IV .Q31M JORGE Stop: 09/28/25 22:15 Last Infusion: 09/28/25 22:45 Dose: Infused Documented By: Admin: 09/28/25 22:10 Dose: 999 mls/hr Documented By: ANABEL Sodium Chloride (Nss) 1,000 mls @ 999 mls/hr IV .Q1H1M JORGE Stop: 09/28/25 22:45 Last Infusion: 09/28/25 22:46 Dose: Infused Documented By: Infusion: 09/28/25 22:45 Dose: 0 mls/hr Documented By: Admin: 09/28/25 22:11 Dose: 999 mls/hr Documented By: ANABEL Acetaminophen (Ofirmev) 1,000 mg in 100 mls @ 400 mls/hr IV NOW STA Stop: 09/28/25 21:57 Last Infusion: 09/28/25 22:46 Dose: Infused Documented By: Admin: 09/28/25 22:26 Dose: 400 mls/hr Documented By: TREMAYNE Meropenem 1,000 mg/ Syringe 20 mls @ 2 mls/min IV NOW STA; Protocol Stop: 09/28/25 21:54 Last Admin: 09/28/25 23:28 Dose: 2 mls/min Documented By: poppy Vancomycin HCl 1,250 mg/ (Sodium Chloride) 525 mls @ 200 mls/hr IV NOW ONE Stop: 09/29/25 00:22 Last Admin: 09/29/25 00:05 Dose: 200 mls/hr Documented By: poppy Critical Care Time Critical Care Time: Yes Total Critical Care Time: 35 I have personally spent 35 minutes of critical care time in the direct management of this patient. This includes bedside care, interpretation of diagnostic studies, and testing, discussion with consultants, patient, and family members, and other required patient management activities. This 35 minutes is in excess of all separately billable procedures. Medical Decision Making Medical Records Attestation: I reviewed the patient's medical records. Home Medications Current Medication List: was personally reviewed by me Laboratory Data Attestation: I reviewed the patient's lab results. 09/28/25 21:15 09/28/25 21:15 Lab Results 09/28/25 09/28/25 09/28/25 Range/Units 21:15 22:00 22:05 WBC 10.08 (4.8-10.8) K/ul RBC 4.23 L (4.70-6.10) M/uL Hgb 13.1 L (14.0-18.0) g/dL Hct 39.5 L (42.0-52.0) % MCV 93.4 (80.0-100.0) fL MCH 31.0 (25.0-34.0) pg MCHC 33.2 (32.0-36.0) g/dL RDW Std Deviation 51.0 H (36.4-46.3) fL RDW Coeff of Jewel 14.8 H (11.5-14.5) % Plt Count 136 (130-400) K/uL MPV 10.2 (9.4-12.4) fL Immature Gran % (Auto) 0.7 % Neut % (Auto) 79.2 % Lymph % (Auto) 7.6 % [place] % (Auto) 12.2 % Eos % (Auto) 0.0 % Baso % (Auto) 0.3 % Neut # (Auto) 7.98 H (1.40-6.50) K/uL Lymph # (Auto) 0.77 L (1.20-3.40) K/uL [place] # (Auto) 1.23 H (0.11-0.59) K/uL Eos # (Auto) 0.00 (0.00-0.50) K/uL Baso # (Auto) 0.03 (0.00-0.20) K/uL Immature Gran # (Auto) 0.07 (0.01-0.20) K/uL VBG pH (7.36-7.41) VBG pCO2 (38-50) mmHg VBG pO2 mmHg VBG HCO3 mmol/L VBG O2 Saturation % VBG Base Excess mEq/L Sodium 140 (136-145) mmol/L Potassium 4.2 (3.5-5.1) mmol/L Chloride 105 (98-107) mmol/L Carbon Dioxide 24 (21-32) mmol/L Anion Gap 11 (3-11) BUN 34 H (6-23) mg/dl Creatinine 1.69 H (0.6-1.4) mg/dl Est Cr Clr Drug Dosing 26.4 ml/min eGFR 38.81 BUN/Creatinine Ratio 20.1 H (10-20) Glucose 117 H (70-99(Fasting)) mg/dl Lactate 1.6 (0.4-2.0) mmol/L Calcium 10.0 (8.6-10.3) mg/dl Magnesium 2.2 (1.7-2.4) mg/dl Total Bilirubin 0.8 (0.2-1.0) mg/dl Direct Bilirubin 0.3 H (0-0.2) mg/dl AST 14 (13-39) U/L ALT 12 (7-52) U/L Alkaline Phosphatase 74 (34-104) U/L Troponin I High Sens 32.8 H (0-20) pg/ml Total Protein 7.3 (6.0-8.3) gm/dl Albumin 3.8 (3.4-5.0) gm/dl Procalcitonin 3.30 H (0-0.5) ng/ml Urine Color Yellow Urine Appearance Clear (Clear) Urine pH 6.0 (4.5-7.5) Ur Specific [place] 1.027 (1.000-1.030) Urine Protein 3+ H (Negative) Urine Glucose (UA) Negative (Negative) Urine Ketones Trace H (Negative) Urine Blood Trace H (Negative) Urine Nitrite Negative (Negative) Urine Bilirubin Negative (Negative) Urine Urobilinogen Negative (Negative) Ur Leukocyte Esterase Negative (Negative) Urine WBC (Auto) 0-5 (0-5) /hpf Urine RBC (Auto) 0-2 (0-2) /hpf U Hyaline Cast (Auto) 0-2 (0-2) /lpf U Epithel Cells (Auto) 0-2 (0-2) /hpf Urine Bacteria (Auto) None Seen (None Seen) Urine Comment Adenovirus (PCR) Not Detected (NotDetected) B. pertussis DNA (PCR) Not Detected (NotDetected) B.parapertussis DNA PCR Not Detected (NotDetected) C. pneumoniae DNA (PCR) Not Detected (NotDetected) Coronavirus OC43 (PCR) Not Detected (NotDetected) Coronavirus HKU1 (PCR) Not Detected (NotDetected) Coronavirus 229E (PCR) Not Detected (NotDetected) SARS-CoV-2 (PCR) Not Detected (NotDetected) Coronavirus NL63 (PCR) Not Detected (NotDetected) Human Metapneumovir PCR Not Detected (NotDetected) Influenza Type A (PCR) Not Detected (NotDetected) Influenza Type B (PCR) Not Detected (NotDetected) M. pneumoniae (PCR) Not Detected (NotDetected) Parainfluenza 1 (PCR) Not Detected (NotDetected) Parainfluenza 2 (PCR) Not Detected (NotDetected) Parainfluenza 3 (PCR) Not Detected (NotDetected) Parainfluenza 4 (PCR) Not Detected (NotDetected) RSV (PCR) Not Detected (NotDetected) Entero/Rhino (PCR) DETECTED A (NotDetected) 09/28/25 Range/Units 22:38 WBC (4.8-10.8) K/ul RBC (4.70-6.10) M/uL Hgb (14.0-18.0) g/dL Hct (42.0-52.0) % MCV (80.0-100.0) fL MCH (25.0-34.0) pg MCHC (32.0-36.0) g/dL RDW Std Deviation (36.4-46.3) fL RDW Coeff of Jewel (11.5-14.5) % Plt Count (130-400) K/uL MPV (9.4-12.4) fL Immature Gran % (Auto) % Neut % (Auto) % Lymph % (Auto) % [place] % (Auto) % Eos % (Auto) % Baso % (Auto) % Neut # (Auto) (1.40-6.50) K/uL Lymph # (Auto) (1.20-3.40) K/uL [place] # (Auto) (0.11-0.59) K/uL Eos # (Auto) (0.00-0.50) K/uL Baso # (Auto) (0.00-0.20) K/uL Immature Gran # (Auto) (0.01-0.20) K/uL VBG pH 7.39 (7.36-7.41) VBG pCO2 37 L (38-50) mmHg VBG pO2 56 mmHg VBG HCO3 22 mmol/L VBG O2 Saturation 89.4 % VBG Base Excess -2.2 mEq/L Sodium (136-145) mmol/L Potassium (3.5-5.1) mmol/L Chloride (98-107) mmol/L Carbon Dioxide (21-32) mmol/L Anion Gap (3-11) BUN (6-23) mg/dl Creatinine (0.6-1.4) mg/dl Est Cr Clr Drug Dosing ml/min eGFR BUN/Creatinine Ratio (10-20) Glucose (70-99(Fasting)) mg/dl Lactate (0.4-2.0) mmol/L Calcium (8.6-10.3) mg/dl Magnesium (1.7-2.4) mg/dl Total Bilirubin (0.2-1.0) mg/dl Direct Bilirubin (0-0.2) mg/dl AST (13-39) U/L ALT (7-52) U/L Alkaline Phosphatase (34-104) U/L Troponin I High Sens (0-20) pg/ml Total Protein (6.0-8.3) gm/dl Albumin (3.4-5.0) gm/dl Procalcitonin (0-0.5) ng/ml Urine Color Urine Appearance (Clear) Urine pH (4.5-7.5) Ur Specific [place] (1.000-1.030) Urine Protein (Negative) Urine Glucose (UA) (Negative) Urine Ketones (Negative) Urine Blood (Negative) Urine Nitrite (Negative) Urine Bilirubin (Negative) Urine Urobilinogen (Negative) Ur Leukocyte Esterase (Negative) Urine WBC (Auto) (0-5) /hpf Urine RBC (Auto) (0-2) /hpf U Hyaline Cast (Auto) (0-2) /lpf U Epithel Cells (Auto) (0-2) /hpf Urine Bacteria (Auto) (None Seen) Urine Comment Adenovirus (PCR) (NotDetected) B. pertussis DNA (PCR) (NotDetected) B.parapertussis DNA PCR (NotDetected) C. pneumoniae DNA (PCR) (NotDetected) Coronavirus OC43 (PCR) (NotDetected) Coronavirus HKU1 (PCR) (NotDetected) Coronavirus 229E (PCR) (NotDetected) SARS-CoV-2 (PCR) (NotDetected) Coronavirus NL63 (PCR) (NotDetected) Human Metapneumovir PCR (NotDetected) Influenza Type A (PCR) (NotDetected) Influenza Type B (PCR) (NotDetected) M. pneumoniae (PCR) (NotDetected) Parainfluenza 1 (PCR) (NotDetected) Parainfluenza 2 (PCR) (NotDetected) Parainfluenza 3 (PCR) (NotDetected) Parainfluenza 4 (PCR) (NotDetected) RSV (PCR) (NotDetected) Entero/Rhino (PCR) (NotDetected) Imaging Data Attestation: I personally reviewed and interpreted this imaging study as follows: Radiologist's Impression: Chest X-Ray 09/28/25 21:43 Exam(s): XR CXR 1 VIEW EXAM: XR Chest, 1 View CLINICAL HISTORY: Reason for exam: Sepsis. TECHNIQUE: Frontal view of the chest. COMPARISON: No relevant prior studies available. FINDINGS: Lungs: Left lower lobe infiltrate. Pleural space: Unremarkable. No pneumothorax. Heart: Unremarkable. No cardiomegaly. Mediastinum: Unremarkable. Normal mediastinal contour. Bones/joints: Unremarkable. No acute fracture. Vasculature: Postop changes end of vascular thoracic aortic aneurysm repair. IMPRESSION: No acute findings in the chest. Left lower lobe pneumonia Electronically signed by: Jesús Butt MD 09/29/25 00:09 AM [facility] Narrative Prior records/ancillary studies reviewed. Triage Nursing notes reviewed. Additional history obtained from healthcare customer service. The patient's history was concerning for fever and low O2 sats Differential diagnosis: Etiologies such as sepsis, UTI, pneumonia, metabolic, electrolyte abnormalities, cardiac sources, intracerebral event, toxicologic, neurologic, as well as others were entertained. Physical examination: As above. Pertinent findings were febrile and low O2 sats. Vital signs reviewed ER treatment provided: IV fluid resuscitation with Normal saline solution, 1500 mL bolus. Blood and urine cultures Antibiotics: Meropenem and vancomycin as patient has a history of ESBL Zithromax was ordered for atypical coverage Patient was placed on nasal cannula as he was hypoxic on room air and was also given a DuoNeb. An order was placed for continuous cardiac monitoring. The monitor shows a rate of 60-100 with a sinus rhythm per my interpretation. On reassessment the patient vital signs improved. Diagnostics interpretation by me: ECG: Ordered for weakness EKG: Poor baseline, normal sinus, left axis, incomplete right bundle, rate of 79. Impression normal sinus rhythm left axis, incomplete right bundle, poor baseline independently interpreted by myself The labs Independently Interpreted by myself revealed no worrisome leukocytosis, mild anemia on CBC. Chemistry panel revealed creatinine 1.69. LFTs revealed. Cardiac enzymes were 32.8. Most likely type II from sepsis Positive rhinovirus on BioFire Serum Lactate measurement was 1.6. Blood and urine cultures are pending. Procalcitonin 3.[address] [place] [address] / Director: Yuki Tellez M.D. Clinical Laboratory Report Name: MIAN PRETTY Acct: [id number] Status: [facility] : 1935 [facility] Date: Age: 89 Sex: M Dis Date: Loc: Laboratory Specimen Drop Off Spec: [id number] Collected: 07/09/25-UNK Received: 07/09/25-[address]: Migue Burroughs PA-C Source: Urine,Random OV Order: Ordered: Urine Culture Procedure Result Verified Site Urine Culture Final 07/11/25 Organism 1 Proteus mirabilis ESBL [place] Count >100,000 CFU/ml Sens Sensitivities to Follow +Mix Urine Plus Low Counts of Other Mixed Amada ESBL P shabana RX M.I.C. --- --------- Amikacin S <=16 Amox/Clav S <=8/4 Ampicillin R >16 Amp/Sul I 16/8 Cefazolin R >16 Cefepime R >16 Cefotaxime R >32 Cefoxitin S <=8 Ceftriaxone R >32 Cefuroxime R >16 Ciprofloxacin R >2 Ertapenem S <=0.5 Gentamicin R >8 Levofloxacin I 1 Meropenem S <=1 Tobramycin R >8 Trimeth/Sulfa R >2/38 Pip/Tazo S <=8 S = SENSITIVE I = INTERMEDIATE R = RESISTANT Imaging studies: Imaging was reviewed and read by radiology Consultation: A consultation was placed with the hospitalist. The case was discussed and diagnostics were reviewed. The patient was evaluated in the ER for further treatment. Exam and history seem consistent with sepsis from pneumonia and patient was also positive for rhinovirus. Patient has a history of aspiration pneumonia also. Patient has a history of ESBL in his urine so he was given meropenem and also vancomycin as he resides in a residential. 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 Family is comfortable with fluids and antibiotics. Prior cultures reviewed. Medicine was consulted case discussed. He will be evaluated for admission. The chart was completed utilizing [employer] Speech voice recognition software. Grammatical errors, random word insertions, pronoun errors, and incomplete sentences are an occassional consequence of this system due to software limitations, ambient noise, and hardware issues. Any formal questions or concerns about the content, text, or information contained within the body of this dictation should be directly addressed to the physician assistant curator for clarification. Impression & Plan Sepsis, Pneumonia, Rhinovirus infection Discharge Plan Visit Data Chief Complaint: Lethargic Stated Complaint: LETHARGIC, AMS, COUGH, HYPOXIA ED Provider: Radha Bowden ED Midlevel Provider: Annia Le Discharge Problem: Sepsis, Pneumonia, Rhinovirus infection Patient Disposition: Admitted As Inpatient Condition: Fair Forms Stand Alone Forms: [employer] [facility] Prescriptions Prescriptions: No Action cholecalciferol (vitamin D3) [Vitamin D3] 50 mcg (2,000 unit) tablet 2,000 unit PO QAM Qty: 90 3RF diclofenac sodium [Voltaren Arthritis Pain] 1 % gel 4 g topical BID Qty: 100 2RF Rx Instructions: apply to legs/knees twice daily for pain potassium chloride 10 mEq tablet extended release 10 meq PO BID Qty: 60 5RF carvedilol 3.125 mg tablet 3.125 mg PO BID Qty: 60 5RF Rx Instructions: must administer with a meal/food atorvastatin 40 mg tablet 40 mg PO QAM Qty: 90 1RF montelukast 10 mg tablet 10 mg PO DAILY Qty: 30 2RF methenamine hippurate 1 gram tablet 1 g PO BID Qty: 180 3RF (DME) lancets [OneTouch Delica Plus Lancet] 30 gauge misc See Rx Instructions .ROUTE .MEDSUPPLY Qty: 100 0RF Rx Instructions: As directed to check sugar when feeling lightheaded (DME) lancing device with lancets [OneTouch Delica Plus Lanc Dev] Kit See Rx Instructions .ROUTE .MEDSUPPLY Qty: 1 0RF Rx Instructions: As directed to check sugar when feeling lightheaded (DME) blood sugar diagnostic Strip See Rx Instructions .ROUTE .MEDSUPPLY Qty: 100 0RF Rx Instructions: As directed to check sugar when feeling lightheaded valsartan 40 mg tablet 20 mg PO DAILY Qty: 90 3RF Rx Instructions: 1/2 TABLET DOSE (DME) nebulizer accessories Kit See Rx Instructions .MEDSUPPLY Qty: 1 0RF Rx Instructions: As directed (DME) nebulizers [Aeroneb Go Nebulizer] Misc See Rx Instructions .MEDSUPPLY Qty: 1 0RF Rx Instructions: With tubing and supplies. J44.9. J45.9. sodium chloride 7 % solution for nebulization 1 inh inhalation BID Qty: 240 3RF (DME) Flutter Valve Device See Rx Instructions .MEDSUPPLY Qty: 1 0RF Rx Instructions: Use it every 6 hours when awake. famotidine 40 mg Tablet 40 mg PO HS Refresh Optive Michael-3 (PF) 0.5-1-0.5 % Dropperette 1 drp OPB BID apixaban 2.5 mg tablet 2.5 mg PO AMHS acetaminophen 325 mg Tablet 650 mg PO Q4 MDD 3 GRAMS APAP/24 HOURS PRN (Reason: TEMP>100/PAIN) amoxicillin 500 mg Capsule 2,000 mg PO DIRECTED PRN (Reason: 1 HR PRIOR TO DENTAL PROCEDURES) acetaminophen [Tylenol] 325 mg Tablet 650 mg PO TID MDD 3 GRAMS APAP/24 HOURS tramadol 50 mg Tablet 50 mg PO Q6H PRN (Reason: Pain, Severe) albuterol sulfate 90 mcg/actuation Hfa Aerosol Inhaler 2 puff INHALATION Q6H PRN (Reason: SHORT OF BREATH/COUGH) cranberry extract 500 mg Capsule 500 mg PO QAM Rx Instructions: administer with meals fluticasone propionate 50 mcg/actuation spray,suspension 2 spray INTRANASAL DAILY arformoterol [Brovana] 15 mcg/2 mL solution for nebulization 15 mcg inhalation BID Spiriva Respimat 2.5 mcg/actuation mist 1 puff inhalation DAILY acetaminophen 650 mg Suppository 650 mg NE Q4H PRN (Reason: Fever >100) magnesium hydroxide [Milk of Magnesia] 400 mg/5 mL Suspension 30 ml PO DAILY PRN (Reason: Constipation) Rx Instructions: DAY 3 OF NO BM bisacodyl [Dulcolax (bisacodyl)] 10 mg Suppository 10 mg NE DAILY PRN (Reason: CONSTIAPTION) Rx Instructions: DAY 4 OF NO BM ondansetron 4 mg Tablet,Disintegrating 4 mg PO Q8H PRN (Reason: Nausea) Referrals Referrals: Jigar Boogie MD [Primary Care Provider] - Discharge Problem: Sepsis Qualifiers: Sepsis type: sepsis due to unspecified organism Sepsis acute organ dysfunction status: without acute organ dysfunction Qualified Code(s): A41.9 - Sepsis, unspecified organism
--- NOTE | 2025-09-28 22:09 | Emergency Department Note ---
ED Visit Note I was consulted by the Advanced Practice Provider, Annia Le PA-C. I performed a substantive portion of the visit. This includes aspects of: History: Patient is an 89-year-old male presenting with lethargy. Patient presents from [facility]. They had difficulties getting an adequate oxygen level when checking his vital signs. He reportedly had sats in the 70s on room air for EMS. He was placed on 4 L nasal cannula. Has had increasing shortness of breath and a cough for the last few days. MDM: Laboratory workup in the emergency department showed elevated procalcitonin and elevated troponin levels. Patient was empirically covered with vancomycin and meropenem, given that he has grown ESBL in the past. Patient to be admitted to hospitalist service for further evaluation and management. .
[2025-09-28] MEDS: SODIUM CHLORIDE 0.9% 500 ML IV SCH (22:10)
[2025-09-28] MEDS: SODIUM CHLORIDE 0.9% 1,000 ML IV SCH (22:11)
[2025-09-28 22:12] LABS: Hematocrit (blood only) 39.5 % (42.0-52.0); Hemoglobin 13.1 g/dL (14.0-18.0); Immature Granulocytes # (auto) 0.07 K/uL (0.01-0.20); Immature Granulocytes % (auto) 0.7 %; Mean Corpuscular Hemoglobin 31.0 pg (25.0-34.0); Mean Corpuscular Volume 93.4 fL (80.0-100.0); Platelet Count 136 K/uL (130-400); RDW Standard Deviation 51.0 fL (36.4-46.3); Red Blood Count 4.23 M/uL (4.70-6.10); White Blood Count 10.08 K/ul (4.8-10.8)
[2025-09-28] MEDS: ACETAMINOPHEN 1,000 MG/100 ML VIAL IV STA (22:26)
[2025-09-28 22:30] LABS: Alanine Aminotransferase 12.0 U/L (7-52); Albumin Level 3.8 gm/dl (3.4-5.0); Alkaline Phosphatase 74.0 U/L (34-104); Anion Gap 11.0 (3-11); Bilirubin,Total 0.8 mg/dl (0.2-1.0); Blood Urea Nitrogen 34.0 mg/dl (6-23); Calcium 10.0 mg/dl (8.6-10.3); Carbon Dioxide 24.0 mmol/L (21-32); Chloride 105.0 mmol/L (98-107); Creatinine Clr Calc Pharmacy 26.4 ml/min; Glucose 117.0 mg/dl (70-99(Fasting)); Magnesium 2.2 mg/dl (1.7-2.4); Potassium 4.2 mmol/L (3.5-5.1); Sodium 140.0 mmol/L (136-145); Total Protein 7.3 gm/dl (6.0-8.3)
[2025-09-28 22:39] LABS: Appearance Urine Clear (Clear); Bacteria Urine Automated None Seen (None Seen); Epithelial Cell Urine Auto 0-2 /hpf (0-2); Glucose Urine UA Negative (Negative); RBC Urine Automated 0-2 /hpf (0-2); WBC Urine Automated 0-5 /hpf (0-5)
[2025-09-28 22:40] LABS: Cast Urine Automated 0-2 /lpf (0-2)
[2025-09-28] MEDS: ALBUT/IPRATROP 3MG/0.5MG NEB 3 ML VIAL NEB STA (22:54)
[2025-09-28 23:04] LABS: Chlamydia pneumoniae PCR Not Detected (NotDetected); Coronavirus 229E PCR Not Detected (NotDetected); Coronavirus CoV-2 (COVID19)PCR Not Detected (NotDetected); Coronavirus HKU1 PCR Not Detected (NotDetected); Coronavirus NL63 PCR Not Detected (NotDetected); Coronavirus OC43PCR Not Detected (NotDetected); Human Metapneumovirus PCR Not Detected (NotDetected); Parainfluenza Virus 1 PCR Not Detected (NotDetected); Parainfluenza Virus 2 PCR Not Detected (NotDetected); Parainfluenza Virus 3 PCR Not Detected (NotDetected); Parainfluenza Virus 4 PCR Not Detected (NotDetected); Respiratory Syncytial VirusPCR Not Detected (NotDetected); Rhinovirus/Enterovirus PCR DETECTED (NotDetected)
[2025-09-28 23:18] LABS: Base Excess VBG -2.2 mEq/L; HCO3 VBG 22 mmol/L; Oxygen Saturation VBG 89.4 %; PCO2 VBG 37 mmHg (38-50); PO2 VBG 56 mmHg; pH VBG 7.39 (7.36-7.41)
[2025-09-28] MEDS: AZITHROMYCIN 500 MG/255 ML BAG IV ONE (23:28)
[2025-09-28] MEDS: MEROPENEM 1,000 MG in SYRINGE 0 ML IV STA (23:28)
[2025-09-29] MEDS: VANCOMYCIN HCL 1,250 MG in SODIUM CHLORIDE 0.9% 500 ML IV ONE (00:05)
--- NOTE | 2025-09-29 00:10 | XRay Report ---
Exam(s): XR CXR 1 VIEW EXAM: XR Chest, 1 View CLINICAL HISTORY: Reason for exam: Sepsis. TECHNIQUE: Frontal view of the chest. COMPARISON: No relevant prior studies available. FINDINGS: Lungs: Left lower lobe infiltrate. Pleural space: Unremarkable. No pneumothorax. Heart: Unremarkable. No cardiomegaly. Mediastinum: Unremarkable. Normal mediastinal contour. Bones/joints: Unremarkable. No acute fracture. Vasculature: Postop changes end of vascular thoracic aortic aneurysm repair. IMPRESSION: No acute findings in the chest. Left lower lobe pneumonia Electronically signed by: Jesús Butt MD 09/29/25 00:09 AM
[2025-09-29] MEDS ORDERED: NITROGLYCERIN SL 0.4 MG/TAB TAB SL PRN (00:25)
[2025-09-29] MEDS ORDERED: ALBUTEROL HFA 8 GM INHALER INH PRN (00:25)
[2025-09-29] MEDS ORDERED: POLYETHYLENE (MIRALAX) 17 GM PACK PO PRN (00:25)
[2025-09-29] MEDS ORDERED: LEVALBUTEROL 1.25 MG/3 ML NEB NEB PRN (00:25)
--- NOTE | 2025-09-29 02:11 | History & Physical Report ---
Date of Service September 29, 2025 Assessment & Plan (1) Lethargy: Plan: 89-year-old male coming from [facility] with past medical history significant for severe COPD, hyperlipidemia, chronic systolic CHF, atrial fibrillation, hypertension, status post TAVR, protein-calorie malnutrition, slow transit constipation, BPH, CKD stage III, history of periprosthetic fracture of proximal left femur, history of CLL, thrombocytopenia, history of TIA, history of CVA, history of bilateral hip replacement, history of DVT, history of C. difficile was brought in because of lethargy. As per [facility] notes recently treated for aspiration pneumonia both lower lobes and finished Augmentin course. He also placed on p.o. vancomycin to prevent C. difficile. In July 2025 had UTI with ESBL Proteus. Caregiver is in the room who is also case liner. Nephew is power of regulatory attorney. Caregiver says she is going to call him to update him. Patient is DNR/DNI. Goal is to keep him comfortable. Not in hospice yet. They are trying to avoid hospitalizations. Last December he was here in the hospital for 14 days. But because this is weekend they brought him for antibiotics. Caregiver was called today that patient is lethargic. Having some cough and fever. Patient has some dementia but last 6 months because of ongoing infections his mental status is progressively worsening as per caregiver. Currently is not ambulating. With some assistance can transfer to wheelchair. He is on thickened liquids but is eating what ever he can. The caregiver does not want to restrict his diet. Caregiver says he lost a lot of weight in the last 6 months and is not eating much. Caregiver is concerned that if we restricts diet the patient may not eat. Caregiver was not notified that patient was having any nausea vomiting or diarrhea. As per career representative patient generally alert and awake and can converse. Patient is currently drowsy. On calling opens eyes and goes back to sleep. Could not get any history from the patient. Lethargy Mostly metabolic encephalopathy VBG okay Spiking temperatures Respiratory BioFire positive for entero-/rhinovirus Chest x-ray showing left lower lobe pneumonia If not improving can get CT head Left lower lobe pneumonia History of aspiration pneumonia MRSA screen positive Received IV Vanco, IV meropenem renally dosed and IV azithromycin in the ER which will be continued Gentle fluids Monitor for response can consult speech again when patient is more stable Chronic systolic CHF Echo on May 2023 shows EF of 35 to 40% Not on diuretics Monitor for volume overload History of severe COPD Continue home inhalers Nebs as needed Atrial fibrillation On Coreg and Eliquis History of CAD On Coreg, statin, Eliquis History of CVA On Eliquis and statin. 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 labs Will monitor History of CLL Follows with [facility] stage IV CLL with bulky lymphadenopathy progressive thrombocytopenia Currently given his advanced age patient is being monitored Thoracic aortic aneurysm s/p repair s/p TAVR DVT prophylaxis On Eliquis Disposition Telemetry CODE STATUS DNR/DNI as per discussion with caregiver. History of Present Illness Chief Complaint: Lethargy Primary Care Provider: Jigar Boogie MD 89-year-old male coming from [facility] with past medical history significant for severe COPD, hyperlipidemia, chronic systolic CHF, atrial fibrillation, hypertension, status post TAVR, protein-calorie malnutrition, slow transit constipation, BPH, CKD stage III, history of periprosthetic fracture of proximal left femur, history of CLL, thrombocytopenia, history of TIA, history of CVA, history of bilateral hip replacement, history of DVT, history of C. difficile was brought in because of lethargy. As per epic notes recently treated for aspiration pneumonia both lower lobes and finished Augmentin course. He also placed on p.o. vancomycin to prevent C. difficile. In July 2025 had UTI with ESBL Proteus. Caregiver is in the room who is also case liner. Nephew is power of regulatory attorney. Caregiver says she is going to call him to update him. Patient is DNR/DNI. Goal is to keep him comfortable. Not in hospice yet. They are trying to avoid hospitalizations. Last December he was here in the hospital for 14 days. But because this is weekend they brought him for antibiotics. Caregiver was called today that patient is lethargic. Having some cough and fever. Patient has some dementia but last 6 months because of ongoing infections his mental status is progressively worsening as per caregiver. Currently is not ambulating. With some assistance can transfer to wheelchair. He is on thickened liquids but is eating what ever he can. The caregiver does not want to restrict his diet. Caregiver says he lost a lot of weight in the last 6 months and is not eating much. Caregiver is concerned that if we restricts diet the patient may not eat. Caregiver was not notified that patient was having any nausea vomiting or diarrhea. As per career representative patient generally alert and awake and can converse. Patient is currently drowsy. On calling opens eyes and goes back to sleep. Could not get any history from the patient. Past medical history. As mentioned above. Past surgical history. Left partial hip replacement. Right partial hip replacement. Bilateral cataract extraction. Tonsillectomy and adenectomy. Repair of inguinal hernia. Revision of penis and urethra for phimosis. Sinus surgery. Thoracic aortic aneurysm repair. Thromboendarterectomy . Social history. Currently with [employer]. Former smoker. Used to drink beer 2-3 drinks per day. No drug use. Family history. Brother had colon cancer. Allergies Allergy/AdvReac Type Severity Reaction Status Date / Time KVNG Inhibitors AdvReac Intermediate Cough Verified 09/28/25 22:32 codeine AdvReac Mild Nausea Verified 09/28/25 22:32 Home Medications Medication Instructions Recorded Confirmed Type blood sugar diagnostic #100 ea 10/09/23 04/08/25 Rx lancets 30 gauge (Caliber InfosolutionsTouch Delica #100 ea 10/09/23 04/08/25 Rx Plus Lancet) lancing device with lancets kit #1 ea 10/09/23 04/08/25 Rx (OneTouch Delica Plus Lancing Device kit) valsartan 40 mg tablet 20 mg (1/2 x 40 mg) PO DAILY #90 01/01/24 09/28/25 Rx tabs cholecalciferol (vitamin D3) 50 2,000 unit PO QAM #90 tabs 05/14/24 09/28/25 Rx mcg (2,000 unit) tablet (Vitamin D3) diclofenac sodium 1 % topical gel 4 g topical BID #100 grams 05/14/24 09/28/25 Rx (Voltaren Arthritis Pain) carboxymethyl 0.5 %-glycerin 1 1 drp OPB BID Dry Eyes 05/28/24 09/28/25 History %-polysorb 80 0.5 %-PF eye dropperette (Refresh Optive Michael-3 (PF)) famotidine 40 mg tablet 40 mg PO HS 05/28/24 09/28/25 History potassium chloride 10 mEq 10 meq PO BID #60 tabs 05/29/24 09/28/25 Rx tablet,extended release acetaminophen 325 mg tablet 650 mg PO Q4 PRN TEMP>100/PAIN 09/10/24 09/28/25 History apixaban 2.5 mg tablet 2.5 mg PO AMHS 09/10/24 09/28/25 History atorvastatin 40 mg tablet 40 mg PO QAM #90 tabs 10/29/24 09/28/25 Rx carvedilol 3.125 mg tablet 3.125 mg PO BID #60 tabs 10/29/24 09/28/25 Rx montelukast 10 mg tablet 10 mg PO DAILY #30 tabs 01/01/25 09/28/25 Rx Flutter Valve #1 ea 04/10/25 04/10/25 Rx nebulizer accessories #1 ea 04/10/25 04/10/25 Rx nebulizers (Aeroneb Go Nebulizer) #1 ea 04/10/25 04/10/25 Rx sodium chloride 7 % for 1 inh inhalation BID #240 mL 04/10/25 09/28/25 Rx nebulization methenamine hippurate 1 gram tablet 1 g PO BID #180 tabs 08/06/25 09/28/25 Rx acetaminophen 650 mg rectal 650 mg ND Q4H PRN Fever >100 08/17/25 09/28/25 History suppository bisacodyl 10 mg rectal suppository 10 mg ND DAILY PRN CONSTIAPTION 08/17/25 09/28/25 History (Dulcolax (bisacodyl)) magnesium hydroxide 400 mg/5 mL 30 ml PO DAILY PRN Constipation 08/17/25 09/28/25 History oral suspension (Milk of Magnesia) ondansetron 4 mg disintegrating 4 mg PO Q8H PRN Nausea 08/17/25 09/28/25 History tablet acetaminophen 325 mg tablet 650 mg PO TID 09/28/25 09/28/25 History (Tylenol) albuterol sulfate 90 mcg/actuation 2 puff inhalation Q6H PRN SHORT OF 09/28/25 09/28/25 History aerosol inhaler BREATH/COUGH amoxicillin 500 mg capsule 2,000 mg PO DIRECTED PRN 1 HR 09/28/25 09/28/25 History PRIOR TO DENTAL PROCEDURES arformoterol 15 mcg/2 mL solution 15 mcg inhalation BID 09/28/25 09/28/25 History for nebulization (Brovana) cranberry extract 500 mg capsule 500 mg PO QAM 09/28/25 09/28/25 History fluticasone propionate 50 2 spray intranasal DAILY 09/28/25 09/28/25 History mcg/actuation nasal spray,suspension tiotropium bromide 2.5 1 puff inhalation DAILY 09/28/25 09/28/25 History mcg/actuation mist for inhalation (Spiriva Respimat) tramadol 50 mg tablet 50 mg PO Q6H PRN Pain, Severe 09/28/25 09/28/25 History Past Med/Surg History Problem List (Updated 09/29/25 @ 06:43 by Ross Candelaria MD) Lethargy Rhinovirus infection (Acute) Pneumonia (Acute) Sepsis (Acute) Frequent UTI (Chronic) Urinary symptom or sign Bronchiectasis Ex-smoker Elevated hemidiaphragm Chronic bronchitis Irritated seborrheic keratosis Sensorineural hearing loss (SNHL) of right ear with restricted hearing of left ear 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 of right ear Chronic otitis media with effusion, bilateral PVD (peripheral vascular disease) BPH w urinary obs/LUTS (Chronic) Urinary retention (Chronic) COPD (chronic obstructive pulmonary disease) Constipation Gait abnormality AAA (abdominal aortic aneurysm) Arteriosclerosis of carotid artery Gout GERD (gastroesophageal reflux disease) Hyperlipidemia Hypertension CAD (coronary artery disease) Nonobstructive per cardio records (pt denies cardiac cath per 01/18/22 cardio note) Cardiomyopathy EF 35-40% per 05/2023 ECHO (EF 60-65% on 2020 ECHO) CLL (chronic lymphocytic leukemia) (Acute) Osteoporosis Medical History C. difficile diarrhea Thrombocytopenia CKD (chronic kidney disease) CVA (cerebral vascular accident) cardio-embolic in 2022. PFO. On anticoagulation since then History of Clostridium difficile infection Atherosclerosis Left inguinal hernia History of stroke Initial stroke 2007- felt secondary to carotid disease (s/p left CEA) Possible second CVA shortly after first CVA Per records- CVA 10/23/20 Embolic strokes 05/10/2023 No residual effects Right bundle branch block Allergic reaction caused by a drug Carotid artery disease S/p left carotid endarterectomy (2013) Aortic aneurysm - S/p TEVAR (2017) - Per chest CTA 05/16/23- Stable Bifascicular block Chronic, dating back to at least 08/2018 per chart review History of seizure Herrick r/t hypoglycemic episodes (last ) Hyperlipidemia Hypertension Surgical History S/P total right hip arthroplasty History of circumcision S/P left inguinal hernia repair (03/21/22) Recurrent left inguinal hernia repair. Dr. Wright H/O right inguinal hernia repair (08/03/20) Open right inguinal hernia repair. Dr. Wright 08/03/2020 Status post incision and drainage (06/26/20) incision and drainage in the office of the left posterior thigh abscess 06/26/20 Dr. Wright in office Status post thoracic aortic aneurysm repair (2016) Hip fracture requiring operative repair LEFT HIP History of right hip replacement History of left hip replacement Nausea and vomiting after administration of anesthetic agent Hx of nasal polypectomy History of hernia surgery LEFT INGUINAL 1980 History of cataract surgery RT/LEFT History of tonsillectomy 1943 H/O thoracic aortic aneurysm repair History of carotid endarterectomy LEFT Family History Brother Colorectal cancer Stroke Family history of diabetes mellitus Father Heart disease Hypertension Stroke Other No family history of adverse response to anesthesia Denies family history of Ovarian cancer Prostate cancer Myocardial infarction Breast cancer Social History Smoking Status: Former smoker Tobacco Type: Cigarettes Age Started Using Tobacco: 20; Age Quit Using Tobacco: 74; packs per day: 0.75; Cigarettes Per Day: 10-15 cig/day; Second Hand Exposure: No; Do You Dip or Chew Tobacco: No; Hx Alcohol Use: No Hx Substance Use: No Preferred Language: Somali Communication Ability: Impaired Communication Ability Comment: Pt. 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: No Beliefs That Will Affect Care: None marital status: / Current Living Situation: Personal Care Facility Current Living Situation Comment: resident of [facility] current occupational status: retired How many Children do You have: 0 Feels Safe at Home: Yes Childhood Exposure to Second-Hand Smoke: Yes Dental Care, Regularly: Yes Physical Activity Frequency: 1-2 Times per Week Seatbelt Use: always Sunscreen Use: No Assistive Devices: Walker and Wheelchair Review of Systems Review of Systems: Unobtainable due to reduced consciousness Physical Exam Physical Exam: General- Drowsy. Head- atraumatic Eyes- pupils [place] and sluggish to react ENT- oropharynx dry Neck- supple, no JVD. Lungs- clear to auscultation no wheezing or crackles Heart- regular rhythm; no murmur, no gallop. Abdomen- normal bowel sounds, soft, mild diffuse discomfort, no distension. Extremities- no pretibial edema, no erythema seen Neuro- drowsy open eyes on calling and goes back to sleep. Not answering. Results & Data Results & Data Vital Signs (Past 12 Hours) Vital Signs Temp Pulse Pulse Resp BP BP Pulse Ox 09/28/25 23:11 68 15 106/53 L 99 09/28/25 23:11 99 09/28/25 22:42 172/95 H 98 09/28/25 22:12 162/86 H 98 09/28/25 22:10 39.1 C H 09/28/25 22:09 162/86 H 09/28/25 21:42 82 09/28/25 21:21 37.5 C 88 27 H 132/76 90 O2 Del Method O2 Flow Rate 09/28/25 23:11 Nasal Cannula 4 09/28/25 23:11 Room Air 4 09/28/25 22:42 Nasal Cannula 4 09/28/25 22:12 Nasal Cannula 4 09/28/25 22:10 09/28/25 22:09 09/28/25 21:42 09/28/25 21:21 Room Air Diagnostic Findings Laboratory Results WBC 10.08 K/ul (4.8-10.8) 09/28/25 21:15 RBC 4.23 M/uL (4.70-6.10) L 09/28/25 21:15 Hgb 13.1 g/dL (14.0-18.0) L 09/28/25 21:15 Hct 39.5 % (42.0-52.0) L 09/28/25 21:15 MCV 93.4 fL (80.0-100.0) 09/28/25 21:15 MCH 31.0 pg (25.0-34.0) 09/28/25 21:15 MCHC 33.2 g/dL (32.0-36.0) 09/28/25 21:15 RDW Std Deviation 51.0 fL (36.4-46.3) H 09/28/25 21:15 RDW Coeff of Jewel 14.8 % (11.5-14.5) H 09/28/25 21:15 Plt Count 136 K/uL (130-400) 09/28/25 21:15 MPV 10.2 fL (9.4-12.4) 09/28/25 21:15 Immature Gran % (Auto) 0.7 % 09/28/25 21:15 Neut % (Auto) 79.2 % 09/28/25 21:15 Lymph % (Auto) 7.6 % 09/28/25 21:15 Sharkey % (Auto) 12.2 % 09/28/25 21:15 Eos % (Auto) 0.0 % 09/28/25 21:15 Baso % (Auto) 0.3 % 09/28/25 21:15 Neut # (Auto) 7.98 K/uL (1.40-6.50) H 09/28/25 21:15 Lymph # (Auto) 0.77 K/uL (1.20-3.40) L 09/28/25 21:15 Sharkey # (Auto) 1.23 K/uL (0.11-0.59) H 09/28/25 21:15 Eos # (Auto) 0.00 K/uL (0.00-0.50) 09/28/25 21:15 Baso # (Auto) 0.03 K/uL (0.00-0.20) 09/28/25 21:15 Immature Gran # (Auto) 0.07 K/uL (0.01-0.20) 09/28/25 21:15 VBG pH 7.39 (7.36-7.41) 09/28/25 22:38 VBG pCO2 37 mmHg (38-50) L 09/28/25 22:38 VBG pO2 56 mmHg 09/28/25 22:38 VBG HCO3 22 mmol/L 09/28/25 22:38 VBG O2 Saturation 89.4 % 09/28/25 22:38 VBG Base Excess -2.2 mEq/L 09/28/25 22:38 Sodium 140 mmol/L (136-145) 09/28/25 21:15 Potassium 4.2 mmol/L (3.5-5.1) 09/28/25 21:15 Chloride 105 mmol/L (98-107) 09/28/25 21:15 Carbon Dioxide 24 mmol/L (21-32) 09/28/25 21:15 Anion Gap 11 (3-11) 09/28/25 21:15 BUN 34 mg/dl (6-23) H 09/28/25 21:15 Creatinine 1.69 mg/dl (0.6-1.4) H 09/28/25 21:15 Est Cr Clr Drug Dosing 26.4 ml/min 09/28/25 21:15 eGFR 38.81 09/28/25 21:15 BUN/Creatinine Ratio 20.1 (10-20) H 09/28/25 21:15 Glucose 117 mg/dl (70-99(Fasting)) H 09/28/25 21:15 Lactate 1.6 mmol/L (0.4-2.0) 09/28/25 22:00 Calcium 10.0 mg/dl (8.6-10.3) 09/28/25 21:15 Magnesium 2.2 mg/dl (1.7-2.4) 09/28/25 21:15 Total Bilirubin 0.8 mg/dl (0.2-1.0) 09/28/25 21:15 Direct Bilirubin 0.3 mg/dl (0-0.2) H 09/28/25 21:15 AST 14 U/L (13-39) 09/28/25 21:15 ALT 12 U/L (7-52) 09/28/25 21:15 Alkaline Phosphatase 74 U/L (34-104) 09/28/25 21:15 Troponin I High Sens 33.7 pg/ml (0-20) H 09/28/25 23:56 Total Protein 7.3 gm/dl (6.0-8.3) 09/28/25 21:15 Albumin 3.8 gm/dl (3.4-5.0) 09/28/25 21:15 Procalcitonin 3.30 ng/ml (0-0.5) H 09/28/25 21:15 Urine Color Yellow 09/28/25 22:05 Urine Appearance Clear (Clear) 09/28/25 22:05 Urine pH 6.0 (4.5-7.5) 09/28/25 22:05 Ur Specific [place] 1.027 (1.000-1.030) 09/28/25 22:05 Urine Protein 3+ (Negative) H 09/28/25 22:05 Urine Glucose (UA) Negative (Negative) 09/28/25 22:05 Urine Ketones Trace (Negative) H 09/28/25 22:05 Urine Blood Trace (Negative) H 09/28/25 22:05 Urine Nitrite Negative (Negative) 09/28/25 22:05 Urine Bilirubin Negative (Negative) 09/28/25 22:05 Urine Urobilinogen Negative (Negative) 09/28/25 22:05 Ur Leukocyte Esterase Negative (Negative) 09/28/25 22:05 Urine WBC (Auto) 0-5 /hpf (0-5) 09/28/25 22:05 Urine RBC (Auto) 0-2 /hpf (0-2) 09/28/25 22:05 U Hyaline Cast (Auto) 0-2 /lpf (0-2) 09/28/25 22:05 U Epithel Cells (Auto) 0-2 /hpf (0-2) 09/28/25 22:05 Urine Bacteria (Auto) None Seen (None Seen) 09/28/25 22:05 Urine Comment 09/28/25 22:05 Nasal Screen MRSA (PCR) Positive (Negative) A 09/29/25 00:48 Adenovirus (PCR) Not Detected (NotDetected) 09/28/25 21:15 B. pertussis DNA (PCR) Not Detected (NotDetected) 09/28/25 21:15 B.parapertussis DNA PCR Not Detected (NotDetected) 09/28/25 21:15 C. pneumoniae DNA (PCR) Not Detected (NotDetected) 09/28/25 21:15 Coronavirus OC43 (PCR) Not Detected (NotDetected) 09/28/25 21:15 Coronavirus HKU1 (PCR) Not Detected (NotDetected) 09/28/25 21:15 Coronavirus 229E (PCR) Not Detected (NotDetected) 09/28/25 21:15 SARS-CoV-2 (PCR) Not Detected (NotDetected) 09/28/25 21:15 Coronavirus NL63 (PCR) Not Detected (NotDetected) 09/28/25 21:15 Human Metapneumovir PCR Not Detected (NotDetected) 09/28/25 21:15 Influenza Type A (PCR) Not Detected (NotDetected) 09/28/25 21:15 Influenza Type B (PCR) Not Detected (NotDetected) 09/28/25 21:15 M. pneumoniae (PCR) Not Detected (NotDetected) 09/28/25 21:15 Parainfluenza 1 (PCR) Not Detected (NotDetected) 09/28/25 21:15 Parainfluenza 2 (PCR) Not Detected (NotDetected) 09/28/25 21:15 Parainfluenza 3 (PCR) Not Detected (NotDetected) 09/28/25 21:15 Parainfluenza 4 (PCR) Not Detected (NotDetected) 09/28/25 21:15 RSV (PCR) Not Detected (NotDetected) 09/28/25 21:15 Entero/Rhino (PCR) DETECTED (NotDetected) A 09/28/25 21:15 Impressions Chest X-Ray 09/28/25 21:43 Exam(s): XR CXR 1 VIEW EXAM: XR Chest, 1 View CLINICAL HISTORY: Reason for exam: Sepsis. TECHNIQUE: Frontal view of the chest. COMPARISON: No relevant prior studies available. FINDINGS: Lungs: Left lower lobe infiltrate. Pleural space: Unremarkable. No pneumothorax. Heart: Unremarkable. No cardiomegaly. Mediastinum: Unremarkable. Normal mediastinal contour. Bones/joints: Unremarkable. No acute fracture. Vasculature: Postop changes end of vascular thoracic aortic aneurysm repair. IMPRESSION: No acute findings in the chest. Left lower lobe pneumonia Electronically signed by: Jesús Butt MD 09/29/25 00:09 AM ECG Additional Comments: ECG. Sinus rhythm with premature subluminal complexes at a rate of 79. Left axis deviation. QTc 447. Code Status & VTE Plan VTE Prophylaxis Plan VTE Prophylaxis will be ordered: Yes
[2025-09-29] MEDS: SODIUM CHLORIDE 0.9% 1,000 ML IV SCH (02:14)
[2025-09-29 05:27] LABS: Hematocrit (blood only) 36.5 % (42.0-52.0); Hemoglobin 11.9 g/dL (14.0-18.0); Immature Granulocytes # (auto) 0.03 K/uL (0.01-0.20); Immature Granulocytes % (auto) 0.3 %; Mean Corpuscular Hemoglobin 31.1 pg (25.0-34.0); Mean Corpuscular Volume 95.3 fL (80.0-100.0); Platelet Count 111 K/uL (130-400); RDW Standard Deviation 52.2 fL (36.4-46.3); Red Blood Count 3.83 M/uL (4.70-6.10); White Blood Count 8.93 K/ul (4.8-10.8)
[2025-09-29] MEDS: ACETAMINOPHEN 1,000 MG/100 ML VIAL IV STA (05:37)
[2025-09-29 05:41] LABS: Anion Gap 8.0 (3-11); Blood Urea Nitrogen 31.0 mg/dl (6-23); Calcium 9.0 mg/dl (8.6-10.3); Carbon Dioxide 24.0 mmol/L (21-32); Chloride 110.0 mmol/L (98-107); Creatinine Clr Calc Pharmacy 30.7 ml/min; Glucose 96.0 mg/dl (70-99(Fasting)); Magnesium 2.1 mg/dl (1.7-2.4); Potassium 4.0 mmol/L (3.5-5.1); Sodium 142.0 mmol/L (136-145)
--- NOTE | 2025-09-29 06:16 | Pharmacy Report ---
Pharmacy PK ABX Note - Date of Service September 29, 2025 - Assessment and Plan Assessment 89 year old M receiving presenting with hypoxia/lethargy from [facility]. He is receiving vancomycin/meropenem/azithromycin for treatment of CAP. Pertinent microbiologic data includes: Positive MRSA Nasal Swab, Respiratory biofire positive for enterovirus, and blood cultures pending. Chest XR positive per left lower lobe pneumonia per Radiologist. Day # 1 of antimicrobial therapy. Plan Vancomycin * Loading dose: 1250 mg IV x 1 * Maintenance dose: 750 mg IV every 24 hours starting at 1200 09/29/25 * Regimen is predicted to achieve target AUC/TOM of 400-600 mg/L.hr * Random to be ordered if continued beyond 48 hours. Pharmacy will continue to follow and will adjust dose/frequency as necessary. Thank you. Pharmacy has transitioned to AUC monitoring for vancomycin. AUC/TOM is the preferred PK/PD target and is associated with decreased risk of nephrotoxicity compared to traditional trough targets.
[2025-09-29] MEDS: FORMOTEROL 20 MCG/2 ML VIAL INH SCH (07:27)
[2025-09-29] MEDS: SODIUM CHLOR 7% 4 ML NEB INH SCH (07:27)
[2025-09-29] MEDS: APIXABAN 2.5 MG TAB PO SCH (07:40)
[2025-09-29] MEDS: MONTELUKAST SODIUM 10 MG TABLET PO SCH (07:40)
[2025-09-29] MEDS: UMECLIDINIUM BROMIDE 62.5MCG/BLISTER 7 PUFFS/INHALER INH SCH (07:40)
[2025-09-29] MEDS: ATORVASTATIN 40 MG TAB PO SCH (07:40)
[2025-09-29] MEDS: MEROPENEM 500 MG in SYRINGE 0 ML IV SCH (07:41)
[2025-09-29] MEDS: ARTIFICIAL TEARS OPB SCH (07:41)
[2025-09-29] MEDS: CHOLECALCIFEROL 25 MCG (1000 UNITS) TAB PO SCH (07:41)
[2025-09-29] MEDS: DICLOFENAC SOD 1% GEL 100 GM TUBE EXT SCH (07:42)
[2025-09-29 07:59] LABS: Hemoglobin A1C 5.0 % (4.5-5.6)
[2025-09-29] MEDS: FLUTICASONE PROPIONATE NA SPR 16 GM BTL SCH (07:59)
[2025-09-29] MEDS: POTASSIUM CHLORIDE 10 MEQ TABCR PO SCH (09:23)
[2025-09-29] MEDS: VANCOMYCIN HCL 125 MG CAP PO SCH (09:23)
--- NOTE | 2025-09-29 10:19 | CT Scan Report ---
CT head/brain wo con CLINICAL HISTORY: 89 years-old Male with altered mental status, lethargy. TECHNIQUE: Multiple axial CT images of the head were obtained without contrast. A dose lowering tech nique was utilized adhering to the principles of ALARA. CT DOSE: 625.8 mGy.cm COMPARISON: 05/14/2025 FINDINGS: No acute intracranial hemorrhage, midline shift, intracranial mass, acute territorial ischemia or abn ormal extra-axial collection. Involutional changes with chronic microvascular ischemic disease. Uncha nged ventriculomegaly, likely on ex vacuo basis. Unchanged left parieto-occipital encephalomalacia. C hronic left caudate nuclear lacunar infarct. The calvarium is intact. Mastoid air cells are clear. Polypoid mucosal thickening of the nasal turbi nates is partially imaged. IMPRESSION: No acute intracranial abnormality identified. ACT 112: Negative or not required by law. The above report was generated using voice recognition software. It may contain grammatical, syntax o r spelling errors. Electronically signed by: Daryl Young M.D. 09/29/2025 10:17 AM
[2025-09-29] MEDS: VANCOMYCIN 750 MG in SODIUM CHLORIDE 0.9% 250 ML IV SCH (12:08)
--- NOTE | 2025-09-29 14:42 | Hospitalist Progress Note ---
Date of Service September 29, 2025 Assessment & Plan (1) Lethargy: Plan: 89 [facility] of Severe COPD, HLD, chronic systolic CHF, A-fib, HTN, status post TAVR, protein calorie malnutrition, slow transit constipation, BPH, CKD stage III, periprosthetic fracture of proximal left femur, CLL, thrombocytopenia, TIA, CVA, bilateral hip replacement, DVT, C. difficile was brought in because of increasing lethargy, cough, fever. Of note, patient recently completed a course for aspiration pneumonia with Augmentin and has also been placed on p.o. vancomycin to prevent C. difficile. 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 Patient's nephew is his power of pastoral worker. Patient is DNR/DNI. Goal is to keep him comfortable. Not in hospice yet. Currently is not ambulating. With some assistance can transfer to wheelchair. He is on thickened liquids but is eating what ever he can. The OP CM does not want to restrict his diet. CM says he lost a lot of weight in the last 6 months and is not eating much. CM is concerned that if we restricts diet the patient may not eat. As per direct care specialist patient generally alert and awake and can converse. Patient is currently drowsy. LLL pna Rhinovirus upper respiratory tract infection Likely metabolic encephalopathy HO aspiration pna Patient presents with increasing confusion, cough, fever. Admitting VBG okay Respiratory BioFire positive for entero-/rhinovirus. MRSA scrn +ve CT head w/ no acute finding. Chest x-ray showing left lower lobe pneumonia c/w iv meropenem, azithro, vanco started at admission. DC azithro w/ 3 d course. c/o po vanco Gentle fluids Monitor for response consider speech again when patient is more stable Pt still lethargic and sleepy at exam. oriented to self. Chronic systolic CHF Echo on May 2023 shows EF of 35 to 40% Not on diuretics Monitor for volume overload given pt on ivf 2/ pna History of severe COPD: Continue home inhalers. Nebs as needed Atrial fibrillation: On Coreg and Eliquis History of CAD : On Coreg, statin, Eliquis History of CVA: On Eliquis and statin. Hyperlipidemia: On statin Hypertension On Coreg and valsartan Coreg with holding parameters Holding valsartan for now Will monitor GERD: On famotidine CKD Recent baseline creatinine seem to 1.4-1.7 Creatinine 1.6 Will follow labs History of C diff : prophylactic po vancomycin as he is getting antibiotics Protein calorie malnutrition: student success counselor consult when more stable Thrombocytopenia: Platelets 111 in a.m. labs. 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 Pt's LEONARDJaclyn Church was given phone call, he would like palliative involved and have d/w w/ palliative w/ gallo involved. He believes Randal is reaching to the point of hospice/comfort care but would like to continue current care until palliative discussion is held. Admission and Anticipated Discharge Date Admission Date: September 28, 2025 Subjective patient was seen and examined at bedside. Patient was lying in bed, on room air, resting comfortably. Patient seems to have wet cough, not able to expectorate. Patient denies pain, denies shortness of breath. Physical Exam Physical Exam: GENERAL: sleepy, woke up to exam. NAD, on RA. appears weak/frail/chronically ill HEENT: No pallor, no icterus. Pupils equal, round and reactive to light. Oral mucosa dry. NECK: No JVD, no neck masses. HEART: S1 and S2 heard. Regular rate and rhythm. No murmur, no gallop. RESPIRATORY SYSTEM: Normal AP diameter. No accessory muscle use. No wheezing, LLL crackles. ABDOMEN: Soft, bowel sounds present, nontender, no distention. CENTRAL NERVOUS SYSTEM: No facial droop. Speech is clear. Obeys simple commands. Moves extremities. EXTREMITIES: No edema, no erythema seen. Results & Data Results & Data Vital Signs (Past 12 Hours) Vital Signs Temp Pulse Pulse Resp BP Pulse Ox O2 Del Method 09/29/25 08:34 36.7 C 09/29/25 08:00 60 20 127/57 L 94 Room Air 09/29/25 07:27 60 18 97 Room Air 09/29/25 07:09 69 09/29/25 04:46 38.0 C H 76 16 164/75 H 93 Room Air
--- NOTE | 2025-09-29 14:45 | Electrocardiogram Report ---
Test Reason : Blood Pressure : */* mmHG Vent. Rate : 79 BPM Atrial Rate : 79 BPM P-R Int : 202 ms QRS Dur : 116 ms QT Int : 390 ms P-R-T Axes : * -40 22 degrees QTcB Int : 447 ms Poor data quality, interpretation may be adversely affected Sinus rhythm with Premature supraventricular complexes Left axis deviation Right bundle branch block Abnormal ECG When compared with ECG of 17-Aug-2025 08:39, Right bundle branch block is no longer Present Questionable change in initial forces of Posterior leads Confirmed by Christopher Cabrera ([id number]) on 09/29/2025 2:45:11 PM Referred By: NO PCP Confirmed By: Christopher Cabrera
--- NOTE | 2025-09-29 14:56 | Electrocardiogram Report ---
Test Reason : Blood Pressure : */* mmHG Vent. Rate : 54 BPM Atrial Rate : 54 BPM P-R Int : 222 ms QRS Dur : 112 ms QT Int : 464 ms P-R-T Axes : -24 -24 -2 degrees QTcB Int : 440 ms Sinus bradycardia with 1st degree A-V block Inferior infarct (cited on or before 21-Jul-2023) Abnormal ECG When compared with ECG of 28-Sep-2025 22:24, (unconfirmed) Premature supraventricular complexes are no longer Present Confirmed by Christopher Cabrera ([id number]) on 09/29/2025 2:56:18 PM Referred By: NO PCP Confirmed By: Christopher Cabrera
[2025-09-29] MEDS: FAMOTIDINE 40 MG TABLET PO SCH (22:15)
[2025-09-30 10:43] LABS: Hematocrit (blood only) 38.2 % (42.0-52.0); Hemoglobin 12.5 g/dL (14.0-18.0); Mean Corpuscular Hemoglobin 30.2 pg (25.0-34.0); Mean Corpuscular Volume 92.3 fL (80.0-100.0); Platelet Count 86 K/uL (130-400); RDW Standard Deviation 50.5 fL (36.4-46.3); Red Blood Count 4.14 M/uL (4.70-6.10); White Blood Count 3.41 K/ul (4.8-10.8)
[2025-09-30 11:03] LABS: Anion Gap 10.0 (3-11); Blood Urea Nitrogen 21.0 mg/dl (6-23); Calcium 9.2 mg/dl (8.6-10.3); Carbon Dioxide 21.0 mmol/L (21-32); Chloride 109.0 mmol/L (98-107); Creatinine Clr Calc Pharmacy 47.8 ml/min; Glucose 83.0 mg/dl (70-99(Fasting)); Magnesium 1.9 mg/dl (1.7-2.4); Potassium 3.4 mmol/L (3.5-5.1); Sodium 140.0 mmol/L (136-145)
--- NOTE | 2025-09-30 11:09 | Palliative Care Consultation ---
Date of Consultation September 30, 2025 Assessment & Plan (1) Lethargy: (2) Weakness generalized: (3) Palliative care by specialist: Spoke with pt's nephew/HCPOA via phone and pt's special education case manager in conference room simultaneously from 13:45 - 14:30 for ACP discussion. Introduced Palliative Medicine and explained our role in advanced care planning, symptom management and navigation through the progression of life limiting disease. They were receptive to palliative services for goals of care discussions. Reviewed we are different from hospice, a home health nurse visiting service. (4) Counseling regarding advanced directives and goals of care: Met with Shikha (CM from [facility]) in 2E conference room, Pt's nephew/HCPOA joined discussion by phone. We discussed at length the patient's acute and chronic medical conditions, general prognosis, treatment options, and goals of care. Ranjit shard that his uncle has had progressive cognitive decline over past several months and likely has "undiagnosed dementia". He shared concern for his uncle's poor quality of life due to recurrent infections requiring frequent hospital admissions. He expressed concern that the pt develops delirium very easily and that any change in environment seem to set him back. He shared that his uncle has gotten progressively weaker and less active. Discussed feasibility of attending rehab. Shikha expressed concern that the pt has previously refused to participate with PT at [facility] and Ranjit shared that they have completed a "comfort care POLST to avoid hospitalization, but when things happen on nights and weekends they send him back to ED". Both questioned in involving hospice team would be appropriate. Ranjit expressed that prolonging life at this time would not be acceptable to the patient, and expressed desire for patient to avoid any future hospitalizations. Discussed hospice benefit: an interdisciplinary program offered by nurses, nurses aides, social workers, chaplains and a medical device sales representative for patients with a terminal condition and a life expectancy of less than 6 months. This is covered by Medicare at 100%/no out of pocket expense to patient and all meds/supplies needed by patient for the reason they are on hospice are paid for/covered by hospice. The goal is assure quality of life of the patient in their home setting (home, usp, inpatient hospice setting) by providing symptoms management, psychosocial and spiritual support. We discussed the goals of hospice as a patient service and the goals of care. Hospice care focuses on quality of life when a cure is no longer possible, or the burdens of treatment outweigh the benefits. Discussed that they will not receive curative treatments, but will receive medicine that enhances quality of life, such as treatment for high blood pressure, rapid heart rate, or anxiety. Hospice care includes pain and symptom management, emotional support, medications and medical supplies, coaching for caregivers, grief support, and may include special services like speech and physical therapy when needed. Hospice is a consolidated care team which includes clergy, home health aides, hospice physicians, nurses, social workers, trained volunteers, and other specialized therapists if needed. A patients personal physician may also be included. Ranjit requests transition to STRUCTURAL ANALYSIS ENGINEER at this time and DC back to [facility] with [facility] when they are able to accept him. (5) Comfort measures only status: Ranjit (HCPOA) requests transition to STRUCTURAL ANALYSIS ENGINEER at this time, with plan for discharge to [facility] with [facility]. (6) Need for comfort care: Comfort plan of care parameters: 1. Patient/Family want hospice added to their care. 2. NO rehab/PT/OT 3. Strictly End of Life care only 4. NO escalation of care: do not increase oxygen, escalate therapies, etc. The focus is on comfort through end of life, assure this is accomplished with aggressive symptom management (i.e. relief of dyspnea, pain, etc.) 5. NO return to hospital 6. NO labs, imaging, surgery 7. Oral intake as desired for comfort and pleasure: NO dietary restriction, Allow permissive aspiration, do not withhold food or drink for conc derrick of aspiration and allow PO for pleasure and comfort. 8. If difficulty urinating/commode/bedpan, ok to place Bob catheter for comfort/hygiene/skin protection AND/OR Continue Bob catheter for comfort/hygiene/skin protection 9. NO: calorie counts, artificial nutrition, feeding tubes or IV fluids EOL Symptom manamgement: Continue/transition to PO Abx per primary; Pain/dyspnea/tachypnea morphine 2mg IVP PRN [id number] Consider titratable morphine drip if pt requires >3 PRN doses in under two consecutive hours. Nausea/vomitting zofran 4mg IVP q4h PRN Agitation ativan 0.5mg IVP q4h PRN Hyperactive delirium haldol 5mg IVP q6h PRN Secretions - if repositioning not effective robinul 0.4mg IV q4h PRN atropine SL 3 drops Q1h PRN Nursing care: Discontinue all medications not directed towards comfort. Detether pt from IV tubing, monitor cables, and check vitals once per shift. Please cliff nue HFNC and titrate down as able for patient comfort. Use medications above PRN for dyspnea/tachypnea and do not increase oxygen once titrated down. Assess q1h for pain/dyspnea and treat accordingly. Plan STRUCTURAL ANALYSIS ENGINEER, plan for discharge to [facility] History of Present Illness Reason for Consultation: goals of care Requesting Physician: Garett Palacios MD Attending Physician: Garett Palacios MD History of Present Illness 89-year-old male coming from [facility] with past medical history significant for severe COPD, hyperlipidemia, chronic systolic CHF, atrial fibrillation, hypertension, status post TAVR, protein-calorie malnutrition, slow transit constipation, BPH, CKD stage III, history of periprosthetic fracture of proximal left femur, history of CLL, thrombocytopenia, history of TIA, history of CVA, history of bilateral hip replacement, history of DVT, history of C. difficile was brought to ED on 09/29/25 due to progressive lethargy. Allergies Allergy/AdvReac Type Severity Reaction Status Date / Time KVNG Inhibitors AdvReac Intermediate Cough Verified 09/28/25 22:32 codeine AdvReac Mild Nausea Verified 09/28/25 22:32 Home Medications Medication Instructions Recorded Confirmed Type blood sugar diagnostic #100 ea 10/09/23 04/08/25 Rx lancets 30 gauge (OneTouch Delica #100 ea 10/09/23 04/08/25 Rx Plus Lancet) lancing device with lancets kit #1 ea 10/09/23 04/08/25 Rx (OneTouch Delica Plus Lancing Device kit) valsartan 40 mg tablet 20 mg (1/2 x 40 mg) PO DAILY #90 01/01/24 09/28/25 Rx tabs cholecalciferol (vitamin D3) 50 2,000 unit PO QAM #90 tabs 05/14/24 09/28/25 Rx mcg (2,000 unit) tablet (Vitamin D3) diclofenac sodium 1 % topical gel 4 g topical BID #100 grams 05/14/24 09/28/25 Rx (Voltaren Arthritis Pain) carboxymethyl 0.5 %-glycerin 1 1 drp OPB BID Dry Eyes 05/28/24 09/28/25 History %-polysorb 80 0.5 %-PF eye dropperette (Refresh Optive Michael-3 (PF)) famotidine 40 mg tablet 40 mg PO HS 05/28/24 09/28/25 History potassium chloride 10 mEq 10 meq PO BID #60 tabs 05/29/24 09/28/25 Rx tablet,extended release acetaminophen 325 mg tablet 650 mg PO Q4 PRN TEMP>100/PAIN 09/10/24 09/28/25 History apixaban 2.5 mg tablet 2.5 mg PO AMHS 09/10/24 09/28/25 History atorvastatin 40 mg tablet 40 mg PO QAM #90 tabs 10/29/24 09/28/25 Rx carvedilol 3.125 mg tablet 3.125 mg PO BID #60 tabs 10/29/24 09/28/25 Rx montelukast 10 mg tablet 10 mg PO DAILY #30 tabs 01/01/25 09/28/25 Rx Flutter Valve #1 ea 04/10/25 04/10/25 Rx nebulizer accessories #1 ea 04/10/25 04/10/25 Rx nebulizers (Aeroneb Go Nebulizer) #1 ea 04/10/25 04/10/25 Rx sodium chloride 7 % for 1 inh inhalation BID #240 mL 04/10/25 09/28/25 Rx nebulization methenamine hippurate 1 gram tablet 1 g PO BID #180 tabs 08/06/25 09/28/25 Rx acetaminophen 650 mg rectal 650 mg KY Q4H PRN Fever >100 08/17/25 09/28/25 History suppository bisacodyl 10 mg rectal suppository 10 mg KY DAILY PRN CONSTIAPTION 08/17/25 09/28/25 History (Dulcolax (bisacodyl)) magnesium hydroxide 400 mg/5 mL 30 ml PO DAILY PRN Constipation 08/17/25 09/28/25 History oral suspension (Milk of Magnesia) ondansetron 4 mg disintegrating 4 mg PO Q8H PRN Nausea 08/17/25 09/28/25 History tablet acetaminophen 325 mg tablet 650 mg PO TID 09/28/25 09/28/25 History (Tylenol) albuterol sulfate 90 mcg/actuation 2 puff inhalation Q6H PRN SHORT OF 09/28/25 09/28/25 History aerosol inhaler BREATH/COUGH amoxicillin 500 mg capsule 2,000 mg PO DIRECTED PRN 1 HR 09/28/25 09/28/25 History PRIOR TO DENTAL PROCEDURES arformoterol 15 mcg/2 mL solution 15 mcg inhalation BID 09/28/25 09/28/25 History for nebulization (Brovana) cranberry extract 500 mg capsule 500 mg PO QAM 09/28/25 09/28/25 History fluticasone propionate 50 2 spray intranasal DAILY 09/28/25 09/28/25 History mcg/actuation nasal spray,suspension tiotropium bromide 2.5 1 puff inhalation DAILY 09/28/25 09/28/25 History mcg/actuation mist for inhalation (Spiriva Respimat) tramadol 50 mg tablet 50 mg PO Q6H PRN Pain, Severe 09/28/25 09/28/25 History Patient History Medical History C. difficile diarrhea Thrombocytopenia CKD (chronic kidney disease) CVA (cerebral vascular accident) cardio-embolic in 2022. PFO. On anticoagulation since then History of Clostridium difficile infection Atherosclerosis Left inguinal hernia History of stroke Initial stroke 2007- felt secondary to carotid disease (s/p left CEA) Possible second CVA shortly after first CVA Per records- CVA 10/23/20 Embolic strokes 05/10/2023 No residual effects Right bundle branch block Allergic reaction caused by a drug Carotid artery disease S/p left carotid endarterectomy (2013) Aortic aneurysm - S/p TEVAR (2016) - Per chest CTA 05/16/23- Stable Bifascicular block Chronic, dating back to at least 08/2018 per chart review History of seizure [place] r/t hypoglycemic episodes (last ) Hyperlipidemia Hypertension Surgical History S/P total right hip arthroplasty History of circumcision S/P left inguinal hernia repair (03/21/22) Recurrent left inguinal hernia repair. Dr. Wright H/O right inguinal hernia repair (08/03/20) Open right inguinal hernia repair. Dr. Wright 08/03/2020 Status post incision and drainage (06/26/20) incision and drainage in the office of the left posterior thigh abscess 06/26/20 Dr. Wright in office Status post thoracic aortic aneurysm repair (2017) Hip fracture requiring operative repair LEFT HIP History of right hip replacement History of left hip replacement Nausea and vomiting after administration of anesthetic agent Hx of nasal polypectomy History of hernia surgery LEFT INGUINAL 1980 History of cataract surgery RT/LEFT History of tonsillectomy 194 H/O thoracic aortic aneurysm repair History of carotid endarterectomy LEFT Family History Brother Colorectal cancer Stroke Family history of diabetes mellitus Father Heart disease Hypertension Stroke Other No family history of adverse response to anesthesia Denies family history of Ovarian cancer Prostate cancer Myocardial infarction Breast cancer Social History Smoking Status: Unknown if ever smoked Tobacco Type: Cigarettes Age Started Using Tobacco: 20; Age Quit Using Tobacco: 74; packs per day: 0.75; Cigarettes Per Day: 10-15 cig/day; Second Hand Exposure: No; Do You Dip or Chew Tobacco: No; Hx Alcohol Use: No (unknown) Hx Substance Use: No Preferred Language: Maori Communication Ability: Impaired Communication Ability Comment: Pt. VENETIE IRA bilaterally Visual Impairment: No Limitations Hearing Ability: Use of Hearing Aid Combat Control Manager Required: No Beliefs That Will Affect Care: None marital status: / Current Living Situation: Assisted Current Living Situation Comment: resident of [facility] current occupational status: retired How many Children do You have: 0 Feels Safe at Home: Yes Childhood Exposure to Second-Hand Smoke: Yes Dental Care, Regularly: Yes Physical Activity Frequency: 1-2 Times per Week Seatbelt Use: always Sunscreen Use: No Assistive Devices: Glasses Review of Systems Review of Systems: All systems reviewed & are unremarkable except as noted in HPI & below Physical Exam Constitutional: well developed, well nourished, + ill appearing, + altered mental status, cooperative and comfortable Eyes: PERRL, conjunctivae normal, anicteric sclerae Neck: trachea midline, no thyromegaly Respiratory: normal respiratory effort, lungs clear to auscultation Gastrointestinal (Abdomen): normal bowel sounds, soft, nontender, no hepatosplenomegaly Neurologic: PERRL, EOMI, accommodation nl, no face palsy, no dysarthria Psychiatric: Orientation: alert and oriented to person Results & Data Vital Signs (Past 12 Hours) Vital Signs Temp Pulse Pulse Pulse Resp BP Pulse Ox 09/30/25 08:23 09/30/25 07:43 37.4 C 65 20 179/78 H 94 09/30/25 07:24 59 L 17 93 09/30/25 05:16 60 09/30/25 02:31 36.8 C 58 L 16 174/77 H 96 09/30/25 00:25 Pulse Ox O2 Del Method O2 Del Method O2 Flow Rate O2 Flow Rate 09/30/25 08:23 Room Air 09/30/25 07:43 Room Air 09/30/25 07:24 Room Air 09/30/25 05:16 09/30/25 02:31 Nasal Cannula 2 09/30/25 00:25 98 Nasal Cannula 3 Laboratory Results Abnormal lab results 09/29/25 09/30/25 Range/Units 17:59 10:18 WBC 3.41 L (4.8-10.8) K/ul RBC 4.14 L (4.70-6.10) M/uL Hgb 12.5 L (14.0-18.0) g/dL Hct 38.2 L (42.0-52.0) % RDW Std Deviation 50.5 H (36.4-46.3) fL RDW Coeff of Jewel 14.9 H (11.5-14.5) % Plt Count 86 L (130-400) K/uL Potassium 3.4 L (3.5-5.1) mmol/L Chloride 109 H (98-107) mmol/L BUN/Creatinine Ratio 21.9 H (10-20) Phosphorus 1.9 L (2.5-4.9) mg/dl Troponin I High Sens 32.7 H (0-20) pg/ml Diagnostic Findings Chest X-Ray 09/28/25 21:43 Exam(s): XR CXR 1 VIEW EXAM: XR Chest, 1 View CLINICAL HISTORY: Reason for exam: Sepsis. TECHNIQUE: Frontal view of the chest. COMPARISON: No relevant prior studies available. FINDINGS: Lungs: Left lower lobe infiltrate. Pleural space: Unremarkable. No pneumothorax. Heart: Unremarkable. No cardiomegaly. Mediastinum: Unremarkable. Normal mediastinal contour. Bones/joints: Unremarkable. No acute fracture. Vasculature: Postop changes end of vascular thoracic aortic aneurysm repair. IMPRESSION: No acute findings in the chest. Left lower lobe pneumonia Electronically signed by: Jesús Butt MD 09/29/25 00:[address] 09/29/25 07:44 CT head/brain wo con CLINICAL HISTORY: 89 years-old Male with altered mental status, lethargy. TECHNIQUE: Multiple axial CT images of the head were obtained without contrast. A dose lowering technique was utilized adhering to the principles of ALARA. CT DOSE: 625.8 mGy.cm COMPARISON: 05/14/2025 FINDINGS: No acute intracranial hemorrhage, midline shift, intracranial mass, acute territorial ischemia or abnormal extra-axial collection. Involutional changes with chronic microvascular ischemic disease. Unchanged ventriculomegaly, likely on ex vacuo basis. Unchanged left parieto-occipital encephalomalacia. Chronic left caudate nuclear lacunar infarct. The calvarium is intact. Mastoid air cells are clear. Polypoid mucosal thickening of the nasal turbinates is partially imaged. IMPRESSION: No acute intracranial abnormality identified. ACT 112: Negative or not required by law. The above report was generated using voice recognition software. It may contain grammatical, syntax or spelling errors. Electronically signed by: Daryl Young M.D. 09/29/2025 10:17 AM Medications Administered Current Inpatient Medications Albuterol (Albuterol Hfa 8 Gm Inhaler) 2 puffs INH Q6H PRN PRN Reason: SHORT OF BREATH/COUGH Stop: 10/29/25 00:24 Apixaban (Apixaban 2.5 Mg Tab) 2.5 mg PO AMHS [facility] Stop: 10/29/25 08:59 Last Admin: 09/30/25 07:58 Dose: Not Given Artificial Tears (Artificial Tears) 1 drops OPB BID JORGE Stop: 10/29/25 08:59 Last Admin: 09/30/25 07:57 Dose: Not Given Atorvastatin Calcium (Atorvastatin 40 Mg Tab) 40 mg PO QAM JORGE Stop: 10/29/25 08:59 Last Admin: 09/30/25 07:57 Dose: Not Given Bisacodyl (Bisacodyl 10 Mg Supp) 10 mg KY DAILY PRN PRN Reason: CONSTIAPTION Stop: 10/29/25 00:24 Carvedilol (Carvedilol 3.125 Mg Tab) 3.125 mg PO BIDM [facility] Stop: 10/29/25 07:59 Last Admin: 09/30/25 07:57 Dose: Not Given Diclofenac Sodium (Diclofenac Sod 1% Gel 100 Gm Tube) 4 gm EXT BID JORGE; Pro tocol Stop: 10/29/25 08:59 Last Admin: 09/30/25 08:40 Dose: Not Given Famotidine (Famotidine 40 Mg Tablet) 40 mg PO HS [facility] Stop: 10/29/25 20:59 Last Admin: 09/29/25 22:15 Dose: Not Given Fluticasone Propionate (Fluticasone Propionate Na Spr 16 Gm Btl) 2 sprays NA DAILY [facility] Stop: 10/29/25 08:59 Last Admin: 09/30/25 07:58 Dose: Not Given Formoterol Fumarate (Formoterol 20 Mcg/2 Ml Vial) 20 mcg INH BIDR [facility] Stop: 10/29/25 06:59 Last Admin: 09/30/25 07:23 Dose: 20 mcg Hydralazine HCl (Hydralazine Hcl 20 Mg/Ml Vial) 10 mg IV Q6H PRN PRN Reason: Hypertension Stop: 10/30/25 07:50 Last Admin: 09/30/25 08:11 Dose: 10 mg Sodium Chloride (Nss) 1,000 mls @ 75 mls/hr IV .[id number] [facility] Stop: 10/02/25 00:24 Last Admin: 09/30/25 05:39 Dose: 75 mls/hr Azithromycin (Zithromax) 500 mg in 255 mls @ 127.5 mls/hr IV Q24H [facility] Stop: 10/05/25 21:59 Vancomycin HCl 750 mg/ Sodium (Chloride) 265 mls @ 200 mls/hr IV Q24H [facility] Stop: 10/04/25 11:59 Last Infusion: 09/30/25 14:32 Dose: Infused Ceftriaxone Sodium (Rocephin) 1,000 mg in 50 mls @ 100 mls/hr IV Q24H [facility] Stop: 10/05/25 13:59 Last Admin: 09/30/25 14:26 Dose: 100 mls/hr Levalbuterol HCl (Levalbuterol 1.25 Mg/3 Ml Neb) 1.25 mg NEB Q6H PRN PRN Reason: Shortness Of Breath Or Wheezing Stop: 10/29/25 00:24 Miscellaneous Information (Vancomycin Consult Active) 1 each N/A UD PRN PRN Reason: Consult Stop: 10/28/25 21:44 Montelukast Sodium (Montelukast Sodium 10 Mg Tablet) 10 mg PO DAILY [facility] Stop: 10/29/25 08:59 Last Admin: 09/30/25 07:57 Dose: Not Given Nitroglycerin (Nitroglycerin Sl 0.4 Mg/Tab Tab) 0.4 mg SL Q5M PRN PRN Reason: Chest Pain Stop: 10/29/25 00:24 Polyethylene Glycol (Polyethylene (Miralax) 17 Gm Pack) 17 gm PO DAILY PRN PRN Reason: Constipation Stop: 10/29/25 00:24 Potassium Chloride (Potassium Chloride 10 Meq Tabcr) 10 meq PO BID [facility] Stop: 10/29/25 08:59 Last Admin: 09/30/25 07:58 Dose: Not Given Sodium Chloride (Sodium Chlor 7% 4 Ml Neb) 4 ml INH BIDR [facility] Stop: 10/29/25 06:59 Last Admin: 09/30/25 07:23 Dose: 4 ml Tramadol HCl (Tramadol Hcl 50 Mg Tablet) 50 mg PO Q6H PRN PRN Reason: Pain, Severe Stop: 10/29/25 00:24 Umeclidinium Stebbins (Umeclidinium Stebbins 62.5mcg/Blister 7 Puffs/Inhaler) 1 puffs INH DAILY [facility] Stop: 10/29/25 08:59 Last Admin: 09/30/25 08:40 Dose: Not Given Vancomycin HCl (Vancomycin Hcl 125 Mg Cap) 125 mg PO DAILY [facility] Stop: 10/09/25 08:59 Last Admin: 09/30/25 07:58 Dose: Not Given Vitamin D (Cholecalciferol 25 Mcg (1000 Units) Tab) 50 mcg PO QAM [facility] Stop: 10/29/25 08:59 Last Admin: 09/30/25 07:57 Dose: Not Given PG Care Time/CCT Total # of Minutes Spent Total Time Spent with Patient: Total time spent is greater than 50% in coordination of care (as documented) at patient's floor/unit and/or counseling patient: Advanced Care Planning 28342 Advanced Care Planning 30 [place] [address] IN/OBS CONSULT LVL 4,60M Patient Type New History Expanded Problem Focused Exam Expanded Problem Focused Medical Decision Making High Complexity Diagnoses Lethargy R53.83 Weakness generalized R53.1 Palliative care by specialist Z51.5 Counseling regarding advanced directives and goals of care Z71.89 Comfort measures only status Z51.5 Need for comfort care Additional Codes Advanced Care Planning - 01052 Advanced Care Planning 30 Min: 26685 Advanced Care Planning 30 Min ([id number])
[2025-09-30] MEDS: cefTRIAXone SODIUM 1,000 MG MINI-B 50ML IV SCH (14:26)
[2025-09-30] MEDS ORDERED: GLYCOPYRROLATE 0.2 MG/ML VIAL IV PRN (14:56)
[2025-09-30] MEDS ORDERED: ACETAMINOPHEN 325 MG TAB PO PRN (14:56)
[2025-09-30] MEDS ORDERED: ATROPINE SULFATE 1% OP SOLN 5 ML BTL SL PRN (14:56)
[2025-09-30] MEDS ORDERED: ONDANSETRON 4 MG OD TAB SL PRN (14:56)
[2025-09-30] MEDS ORDERED: HYOSCYAMINE SULFATE 0.125 MG TAB SL PRN (14:56)
[2025-09-30] MEDS ORDERED: ONDANSETRON INJ 2 MG/ML 2 ML VIAL IV PRN (14:56)
[2025-09-30 15:21] VITALS: BP 165/76; TEMP 99.1
--- NOTE | 2025-09-30 16:20 | Hospitalist Progress Note ---
Date of Service September 30, 2025 Assessment & Plan (1) Lethargy: Plan: 89 yo M from [facility] w/ PMH of Severe COPD, HLD, chronic systolic CHF, A-fib, HTN, status post TAVR, protein calorie malnutrition, slow transit constipation, BPH, CKD stage III, periprosthetic fracture of proximal left femur, CLL, thrombocytopenia, TIA, CVA, bilateral hip replacement, DVT, C. difficile was brought in because of increasing lethargy, cough, fever. Of note, patient recently completed a course for aspiration pneumonia with Augmentin and has also been placed on p.o. vancomycin to prevent C. difficile. Patient has underlying dementia but because of ongoing infection his mental status is progressively worsening in the last 6 months as per patient's case advocate. Patient's nephew is his power of claim attorney. Patient is DNR/DNI. Goal is to keep him comfortable. Not in hospice yet. Currently is not ambulating. With some assistance can transfer to wheelchair. He is on thickened liquids but is eating what ever he can. The OP CM does not want to restrict his diet. CM says he lost a lot of weight in the last 6 months and is not eating much. CM is concerned that if we restricts diet the patient may not eat. As per care program director patient generally alert and awake and can converse. Patient is currently drowsy. LLL pna Rhinovirus upper respiratory tract infection Likely metabolic encephalopathy HO aspiration pna Patient presents with increasing confusion, cough, fever. Admitting VBG okay Respiratory BioFire positive for entero-/rhinovirus. MRSA scrn +ve CT head w/ no acute finding. Chest x-ray showing left lower lobe pneumonia c/w iv meropenem 09/29 --> rocephin 09/30, azithro, vanco started at admission. DC azithro w/ 3 d course. c/o po vanco No further labs/escalation of care. 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 diet as able. Chronic systolic CHF Echo on May 2023 shows EF of 35 to 40% Not on diuretics History of severe COPD: Continue home inhalers. Nebs as needed Atrial fibrillation: On Coreg and Eliquis History of CAD : On Coreg, statin, Eliquis History of CVA: On Eliquis and statin. Hyperlipidemia: On statin Hypertension On Coreg and valsartan GERD: On famotidine CKD Recent baseline creatinine seem to 1.4-1.7 Creatinine 1.6 Will follow labs History of C diff : prophylactic po vancomycin as he is getting antibiotics Protein calorie malnutrition: transportation security officer consult when more stable Thrombocytopenia: Platelets 111 in a.m. labs. Will monitor History of CLL Follows with [facility] stage IV CLL with bulky lymphadenopathy progressive thrombocytopenia Currently given his advanced age patient is being monitored Thoracic aortic aneurysm s/p repair s/p TAVR DVT prophylaxis: On Eliquis Disposition: Telemetry CODE STATUS DNR/DNI as per discussion with caregiver. 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 Admission and Anticipated Discharge Date Admission Date: September 28, 2025 Subjective patient was seen and examined at bedside. Patient was lying in bed, on room air, resting comfortably. Pt appears more alert, ros not able to very [employer] (battery ) Physical Exam Physical Exam: GENERAL: alert, awake. NAD, on RA. appears weak/frail/chronically ill HEENT: No pallor, no icterus. Pupils equal, round and reactive to light. Oral mucosa dry. NECK: No JVD, no neck masses. HEART: S1 and S2 heard. Regular rate and rhythm. No murmur, no gallop. RESPIRATORY SYSTEM: Normal AP diameter. No accessory muscle use. No wheezing, LLL crackles. ABDOMEN: Soft, bowel sounds present, nontender, no distention. CENTRAL NERVOUS SYSTEM: No facial droop. Speech is clear. Obeys simple commands. Moves extremities. EXTREMITIES: No edema, no erythema seen. Results & Data Results & Data Vital Signs (Past 12 Hours) Vital Signs Temp Pulse Pulse Pulse Resp BP Pulse Ox 09/30/25 15:21 37.3 C 69 16 165/76 H 93 09/30/25 14:16 64 09/30/25 11:46 37.1 C 67 20 158/87 H 95 09/30/25 08:23 09/30/25 07:43 37.4 C 65 20 179/78 H 94 09/30/25 07:24 59 L 17 93 09/30/25 05:16 60 O2 Del Method 09/30/25 15:21 Room Air 09/30/25 14:16 09/30/25 11:46 Room Air 09/30/25 08:23 Room Air 09/30/25 07:43 Room Air 09/30/25 07:24 Room Air 09/30/25 05:16
[2025-09-30 20:03] VITALS: PULSE 59; O2SAT 94
[2025-09-30] MEDS: LORazepam Inj 0.5 MG in SYRINGE 0.25 ML IV PRN (21:36)
[2025-09-30] MEDS: AZITHROMYCIN 500 MG/255 ML BAG IV SCH (22:04)
[2025-10-01] MEDS: MoRPHine SULFATE 10 MG/0.5 ML UDP PO PRN (00:07)
[2025-10-01 07:29] VITALS: RESP 16
[2025-10-01] MEDS: VALSARTAN 80 MG TAB PO SCH (09:16)
--- NOTE | 2025-10-01 09:22 | Discharge Summary ---
Date of Service October 01, 2025 Admission HPI Per Admitting Provider 89-year-old male coming from [facility] with past medical history significant for severe COPD, hyperlipidemia, chronic systolic CHF, atrial fibrillation, hypertension, status post TAVR, protein-calorie malnutrition, slow transit constipation, BPH, CKD stage III, history of periprosthetic fracture of proximal left femur, history of CLL, thrombocytopenia, history of TIA, history of CVA, history of bilateral hip replacement, history of DVT, history of C. difficile was brought in because of lethargy. As per epic notes recently treated for aspiration pneumonia both lower lobes and finished Augmentin course. He also placed on p.o. vancomycin to prevent C. difficile. In July 2025 had UTI with ESBL Proteus. Caregiver is in the room who is also showcase maker. Nephew is power of environmental attorney. Caregiver says she is going to call him to update him. Patient is DNR/DNI. Goal is to keep him comfortable. Not in hospice yet. They are trying to avoid hospitalizations. Last December he was here in the [facility] for 14 days. But because this is weekend they brought him for antibiotics. Caregiver was called today that patient is lethargic. Having some cough and fever. Patient has some dementia but last 6 months because of ongoing infections his mental status is progressively worsening as per caregiver. Currently is not ambulating. With some assistance can transfer to wheelchair. He is on thickened liquids but is eating what ever he can. The caregiver does not want to restrict his diet. Caregiver says he lost a lot of weight in the last 6 months and is not eating much. Caregiver is concerned that if we restricts diet the patient may not eat. Caregiver was not notified that patient was having any nausea vomiting or diarrhea. As per ocular care technician patient generally alert and awake and can converse. Patient is currently drowsy. On calling opens eyes and goes back to sleep. Could not get any history from the patient. Past medical history. As mentioned above. Past surgical history. Left partial hip replacement. Right partial hip replacement. Bilateral cataract extraction. Tonsillectomy and adenectomy. Repair of inguinal hernia. Revision of penis and urethra for phimosis. Sinus surgery. Thoracic aortic aneurysm repair. Thromboendarterectomy . Social history. Currently with [facility]. Former smoker. Used to drink beer 2-3 drinks per day. No drug use. Family history. Brother had colon cancer. Admission Exam Per Admitting Provider General- Drowsy. Head- atraumatic Eyes- pupils [place] and sluggish to react ENT- oropharynx dry Neck- supple, no JVD. Lungs- clear to auscultation no wheezing or crackles Heart- regular rhythm; no murmur, no gallop. Abdomen- normal bowel sounds, soft, mild diffuse discomfort, no distension. Extremities- no pretibial edema, no erythema seen Neuro- drowsy open eyes on calling and goes back to sleep. Not answering. Principal Diagnosis LLL pna Rhinovirus upper respiratory tract infection Likely metabolic encephalopathy HO aspiration pna Discharge Exam GENERAL: alert, awake. NAD, on RA. appears weak/frail/chronically ill HEENT: No pallor, no icterus. Pupils equal, round and reactive to light. Oral mucosa dry. NECK: No JVD, no neck masses. HEART: S1 and S2 heard. Regular rate and rhythm. No murmur, no gallop. RESPIRATORY SYSTEM: Normal AP diameter. No accessory muscle use. No wheezing, LLL crackles. ABDOMEN: Soft, bowel sounds present, nontender, no distention. CENTRAL NERVOUS SYSTEM: No facial droop. Speech is clear. Obeys simple commands. Moves extremities. EXTREMITIES: No edema, no erythema seen. Discharge Data Allergies Allergy/AdvReac Type Severity Reaction Status Date / Time KVNG Inhibitors AdvReac Intermediate Cough Verified 09/28/25 22:32 codeine AdvReac Mild Nausea Verified 09/28/25 22:32 Consultations 09/28/25 22:53 ED Decision to Admit Stat 09/29/25 14:47 Consult Palliative Care Routine Ordered Studies 09/29/25 07:44 CT head/brain wo con Stat Hospital Course (1) Lethargy: 89 yo M from [facility] w/ PMH of Severe COPD, HLD, chronic systolic CHF, A-fib, HTN, status post TAVR, protein calorie malnutrition, slow transit constipation, BPH, CKD stage III, periprosthetic fracture of proximal left femur, CLL, thrombocytopenia, TIA, CVA, bilateral hip replacement, DVT, C. difficile was brought in because of increasing lethargy, cough, fever. Patient was found to have left lower lobe pneumonia along with rhinovirus infection. Patient was started on antibiotics with gradual improvement in oxygenation. Palliative care was consulted; patient was discharged on hospice care after discussion with family. Patient was prescribed oral antibiotic at the time of the discharge. Please note the above document was generated using voice recognition software. It may contain grammatical, syntax or spelling errors. Any formal questions or concerns about the content, text or information contained within the body of this dictation should be directly addressed to the provider for clarification Total Time Total Time Spent Total Time Spent (In Minutes): 45 Total Time Includes: Examination of the Patient, Discharge Planning, Medication Reconciliation, Communication With Other Providers and Other Discharge Plan Discharge Items Patient Disposition: Hospice - Medical Facility Reason For Visit: LETHARGIC, PNEUMONIA Discharge Diagnosis: LLL pna Rhinovirus upper respiratory tract infection Likely metabolic encephalopathy HO aspiration pna Condition on Discharge: Fair Activity: Resume your previous activity Non-emergency contact: Primary Care Provider Call non-emergency contact if: you have any medication questions and your symptoms worsen Follow-up/Referrals: Jigar Boogie MD [Primary Care Provider] - Diet: Regular Liquid Consistency: Honey thick Addtl Attending Provider Instructions: Please take the medication as prescribed. Pending Studies at Discharge: No Stand-Alone Forms: [facility] Skilled Items Patient informed of condition?: Yes DNR: Yes Discharge Level of Care: Other Communicable Disease: No Discharge Prognosis: Stable Lines: None Urinary Catheter: No Medications and DC Order Prescriptions: New vancomycin 125 mg Capsule 125 mg PO DAILY Qty: 2 0RF amoxicillin-pot clavulanate [Augmentin] 250-62.5 mg/5 mL suspension for reconstitution 10 ml PO Q8H 2 Days Qty: 60 0RF Continued cholecalciferol (vitamin D3) [Vitamin D3] 50 mcg (2,000 unit) tablet 2,000 unit PO QAM Qty: 90 3RF diclofenac sodium [Voltaren Arthritis Pain] 1 % gel 4 g topical BID Qty: 100 2RF Rx Instructions: apply to legs/knees twice daily for pain potassium chloride 10 mEq tablet extended release 10 meq PO BID Qty: 60 5RF carvedilol 3.125 mg tablet 3.125 mg PO BID Qty: 60 5RF Rx Instructions: must administer with a meal/food atorvastatin 40 mg tablet 40 mg PO QAM Qty: 90 1RF montelukast 10 mg tablet 10 mg PO DAILY Qty: 30 2RF methenamine hippurate 1 gram tablet 1 g PO BID Qty: 180 3RF (DME) lancets [OneTouch Delica Plus Lancet] 30 gauge misc See Rx Instructions .ROUTE .MEDSUPPLY Qty: 100 0RF Rx Instructions: As directed to check sugar when feeling lightheaded (DME) lancing device with lancets [OneTouch Delica Plus Lanc Dev] Kit See Rx Instructions .ROUTE .MEDSUPPLY Qty: 1 0RF Rx Instructions: As directed to check sugar when feeling lightheaded (DME) blood sugar diagnostic Strip See Rx Instructions .ROUTE .MEDSUPPLY Qty: 100 0RF Rx Instructions: As directed to check sugar when feeling lightheaded valsartan 40 mg tablet 20 mg PO DAILY Qty: 90 3RF Rx Instructions: 1/2 TABLET DOSE (DME) nebulizer accessories Kit See Rx Instructions .MEDSUPPLY Qty: 1 0RF Rx Instructions: As directed (DME) nebulizers [Aeroneb Go Nebulizer] [facility] See Rx Instructions .MEDSUPPLY Qty: 1 0RF Rx Instructions: With tubing and supplies. J44.9. J45.9. sodium chloride 7 % solution for nebulization 1 inh inhalation BID Qty: 240 3RF (DME) Flutter Valve Device See Rx Instructions .MEDSUPPLY Qty: 1 0RF Rx Instructions: Use it every 6 hours when awake. famotidine 40 mg Tablet 40 mg PO HS Refresh Optive Michael-3 (PF) 0.5-1-0.5 % Dropperette 1 drp OPB BID apixaban 2.5 mg tablet 2.5 mg PO AMHS acetaminophen 325 mg Tablet 650 mg PO Q4 MDD 3 GRAMS APAP/24 HOURS PRN (Reason: TEMP>100/PAIN) amoxicillin 500 mg Capsule 2,000 mg PO DIRECTED PRN (Reason: 1 HR PRIOR TO DENTAL PROCEDURES) acetaminophen [Tylenol] 325 mg Tablet 650 mg PO TID MDD 3 GRAMS APAP/24 HOURS tramadol 50 mg Tablet 50 mg PO Q6H PRN (Reason: Pain, Severe) albuterol sulfate 90 mcg/actuation Hfa Aerosol Inhaler 2 puff INHALATION Q6H PRN (Reason: SHORT OF BREATH/COUGH) cranberry extract 500 mg Capsule 500 mg PO QAM Rx Instructions: administer with meals fluticasone propionate 50 mcg/actuation spray,suspension 2 spray INTRANASAL DAILY arformoterol [Brovana] 15 mcg/2 mL solution for nebulization 15 mcg inhalation BID Spiriva Respimat 2.5 mcg/actuation mist 1 puff inhalation DAILY acetaminophen 650 mg Suppository 650 mg OK Q4H PRN (Reason: Fever >100) magnesium hydroxide [Milk of Magnesia] 400 mg/5 mL Suspension 30 ml PO DAILY PRN (Reason: Constipation) Rx Instructions: DAY 3 OF NO BM bisacodyl [Dulcolax (bisacodyl)] 10 mg Suppository 10 mg OK DAILY PRN (Reason: CONSTIAPTION) Rx Instructions: DAY 4 OF NO BM ondansetron 4 mg Tablet,Disintegrating 4 mg PO Q8H PRN (Reason: Nausea) Discharge Orders: Discharge Order (Routine); Ordered 10/01/25 Ordered By: Eyad Garrett Admission Data Admit Date/Time: 09/28/25 23:54 Attending Provider: Eyad Garrett Admit Provider: Ross Candelaria Primary Care Provider: Jigar Boogie Other Providers: [facility]; [facility]; Ross Candelaria
--- NOTE | 2025-10-01 09:28 | Palliative Care Progress Note ---
Date of Service October 01, 2025 Assessment & Plan (1) Lethargy: (2) Weakness generalized: (3) Palliative care by specialist: Plan: We will sign off on this patient as goals of care are clearly established for RISK CONTROL MANAGER, with plan for discharge to SNF with hospice. Thank you for including Palliative Care in the management of this patient. Please call with any questions or concerns regarding this consultation. (4) Comfort measures only status: Plan: On family request pt was transitioned to RISK CONTROL MANAGER on 09/30/25, with plan for discharge to [facility] with [facility] today. (5) Need for comfort care: Plan: Comfort plan of care parameters: 1. Patient/Family want hospice added to their care. 2. NO rehab/PT/OT 3. Strictly End of Life care only 4. NO escalation of care: do not increase oxygen, escalate therapies, etc. The focus is on comfort through end of life, assure this is accomplished with aggressive symptom management (i.e. relief of dyspnea, pain, etc.) 5. NO return to hospital 6. NO labs, imaging, surgery 7. Oral intake as desired for comfort and pleasure: NO dietary restricti on, Allow permissive aspiration, do not withhold food or drink for concern of aspiration and allow PO for pleasure and comfort. 8. If difficulty urinating/commode/bedpan, ok to place Bob catheter for comfort/hygiene/skin protection AND/OR Continue Bob catheter for comfort/hygiene/skin protection 9. NO: calorie counts, artificial nutrition, feeding tubes or IV fluids EOL Symptom manamgement: Continue/transition to PO Abx per primary; Pain/dyspnea/tachypnea morphine 2mg IVP PRN [id number] Consider titratable morphine drip if pt requires >3 PRN doses in under two consecutive hours. Nausea/vomitting zofran 4mg IVP q4h PRN Agitation ativan 0.5mg IVP q4h PRN Hyperactive delirium haldol 5mg IVP q6h PRN Secretions - if repositioning not effective robinul 0.4mg IV q4h PRN atropine SL 3 drops Q1h PRN Nursing care: Discontinue all medications not directed towards comfort. Detether pt from IV tubing, monitor cables, and check vitals once per shift. Please continue HFNC and titrate down as able for patient comfort. Use medications above PRN for dyspnea/tachypnea and do not increase oxygen once titrated down. Assess q1h for pain/dyspnea and treat accordingly. Plan RISK CONTROL MANAGER, plan for discharge to [facility] today Admission and Anticipated Discharge Date Admission Date: September 28, 2025 Subjective Assessed pt at bedside, he was transitioned to RISK CONTROL MANAGER on 09/30/25. Pt is awake and alert, confused but denies discomfort. He appears comfortable, pale skin, extremities warm, and well perfused. Respiratory effort normal and NAD on RA. No visitors at bedside. Review of Systems Review of Systems: All systems reviewed & are unremarkable except as noted in Subjective Physical Exam Constitutional: well developed, well nourished, + ill appearing, + altered mental status, cooperative and comfortable Eyes: PERRL, conjunctivae normal, anicteric sclerae Neck: trachea midline, no thyromegaly Respiratory: normal respiratory effort, lungs clear to auscultation Gastrointestinal (Abdomen): normal bowel sounds, soft, nontender, no hepatosplenomegaly Neurologic: PERRL, EOMI, accommodation nl, no face palsy, no dysarthria Psychiatric: Orientation: alert and oriented to person Results & Data Vital Signs (Past 12 Hours) Vital Signs Pulse Resp Pulse Ox O2 Del Method 10/01/25 07:29 59 L 16 94 Room Air 10/01/25 00:29 Room Air Laboratory Results No further labs or diagnostics in concert with comfort directed care. Diagnostic Findings No further labs or diagnostics in concert with comfort directed care. Medications Administered Current Inpatient Medications Acetaminophen (Acetaminophen 325 Mg Tab) 650 mg PO Q6H PRN PRN Reason: Fever 37.8C or Above Stop: 10/30/25 14:55 Albuterol (Albuterol Hfa 8 Gm Inhaler) 2 puffs INH Q6H PRN PRN Reason: SHORT OF BREATH/COUGH Stop: 10/29/25 00:24 Apixaban (Apixaban 2.5 Mg Tab) 2.5 mg PO AMHS [facility] Stop: 10/29/25 08:59 Last Admin: 10/01/25 09:13 Dose: 2.5 mg Artificial Tears (Artificial Tears) 1 drops OPB BID JORGE Stop: 10/29/25 08:59 Last Admin: 10/01/25 09:14 Dose: 1 drops Atorvastatin Calcium (Atorvastatin 40 Mg Tab) 40 mg PO QAM [facility] Stop: 10/29/25 08:59 Last Admin: 10/01/25 09:14 Dose: 40 mg Atropine Sulfate (Atropine Sulfate 1% Op Soln 5 Ml Btl) 4 drops SL Q1H PRN PRN Reason: Secretions or pulm congestion Stop: 10/30/25 14:55 Bisacodyl (Bisacodyl 10 Mg Supp) 10 mg OR DAILY PRN PRN Reason: CONSTIAPTION Stop: 10/29/25 00:24 Carvedilol (Carvedilol 3.125 Mg Tab) 3.125 mg PO BIDM [facility] Stop: 10/29/25 07:59 Last Admin: 10/01/25 09:05 Dose: Not Given Diclofenac Sodium (Diclofenac Sod 1% Gel 100 Gm Tube) 4 gm EXT BID [facility]; Protocol Stop: 10/29/25 08:59 Last Admin: 10/01/25 09:14 Dose: 4 gm Famotidine (Famotidine 40 Mg Tablet) 40 mg PO HS [facility] Stop: 10/29/25 20:59 Last Admin: 09/30/25 21:39 Dose: Not Given Fluticasone Propionate (Fluticasone Propionate Na Spr 16 Gm Btl) 2 sprays NA DAILY [facility] Stop: 10/29/25 08:59 Last Admin: 09/30/25 07:58 Dose: Not Given Formoterol Fumarate (Formoterol 20 Mcg/2 Ml Vial) 20 mcg INH BIDR [facility] Stop: 10/29/25 06:59 Last Admin: 10/01/25 07:25 Dose: 20 mcg Glycopyrrolate (Glycopyrrolate 0.2 Mg/Ml Vial) 0.4 mg IV Q4H PRN PRN Reason: Rattling Secretions or Pulm Congestion Stop: 10/30/25 14:55 Hyoscyamine (Hyoscyamine Sulfate 0.125 Mg Tab) 0.125 mg SL Q4H PRN PRN Reason: Secretions or Pulm Congestion Stop: 10/30/25 14:55 Azithromycin (Zithromax) 500 mg in 255 mls @ 127.5 mls/hr IV Q24H [facility] Stop: 10/05/25 21:59 Last Infusion: 10/01/25 00:04 Dose: Infused Ceftriaxone Sodium (Rocephin) 1,000 mg in 50 mls @ 100 mls/hr IV Q24H [facility] Stop: 10/05/25 13:59 Last Infusion: 09/30/25 15:49 Dose: Infused Lorazepam 0.5 mg/ Syringe 0.5 mls @ 2 mls/min IV Q4H PRN PRN Reason: Anxiety/Agitation Stop: 10/30/25 14:55 Last Admin: 09/30/25 21:36 Dose: 2 mls/min Levalbuterol HCl (Levalbuterol 1.25 Mg/3 Ml Neb) 1.25 mg NEB Q6H PRN PRN Reason: Shortness Of Breath Or Wheezing Stop: 10/29/25 00:24 Montelukast Sodium (Montelukast Sodium 10 Mg Tablet) 10 mg PO DAILY [facility] Stop: 10/29/25 08:59 Last Admin: 10/01/25 09:15 Dose: 10 mg Morphine Sulfate (Morphine Sulfate 10 Mg/0.5 Ml Udp) 5 mg PO Q3H PRN PRN Reason: Pain or Respiratory Distress Stop: 10/14/25 14:55 Last Admin: 10/01/25 00:07 Dose: 5 mg Ondansetron HCl (Ondansetron Inj 2 Mg/Ml 2 Ml Vial) 4 mg IV Q4H PRN PRN Reason: Nausea &/or Vomiting Stop: 10/30/25 14:55 Ondansetron HCl (Ondansetron 4 Mg Od Tab) 4 mg SL Q4H PRN PRN Reason: Nausea &/or Vomiting Stop: 10/30/25 14:55 Potassium Chloride (Potassium Chloride 10 Meq Tabcr) 10 meq PO BID [facility] Stop: 10/29/25 08:59 Last Admin: 10/01/25 09:15 Dose: 10 meq Sodium Chloride (Sodium Chlor 7% 4 Ml Neb) 4 ml INH BIDR [facility] Stop: 10/29/25 06:59 Last Admin: 10/01/25 07:25 Dose: 4 ml Tramadol HCl (Tramadol Hcl 50 Mg Tablet) 50 mg PO Q6H PRN PRN Reason: Pain, Severe Stop: 10/29/25 00:24 Umeclidinium [place] (Umeclidinium [place] 62.5mcg/Blister 7 Puffs/Inhaler) 1 puffs INH DAILY [facility] Stop: 10/29/25 08:59 Last Admin: 09/30/25 08:40 Dose: Not Given Valsartan (Valsartan 80 Mg Tab) 20 mg PO DAILY JORGE Stop: 10/31/25 08:59 Last Admin: 10/01/25 09:16 Dose: 20 mg Vancomycin HCl (Vancomycin Hcl 125 Mg Cap) 125 mg PO DAILY [facility] Stop: 10/09/25 08:59 Last Admin: 10/01/25 09:18 Dose: 125 mg PG Care Time/CCT Total # of Minutes Spent Total Time Spent with Patient: Total time spent is greater than 50% in coordination of care (as documented) at patient's floor/unit and/or counseling patient: [place]oding [place] [address] SUB INP/OBS CARE 2/35MIN Patient Type Established History Problem Focused Exam Problem Focused Medical Decision Making Low Complexity Diagnoses Lethargy R53.83 Weakness generalized R53.1 Palliative care by specialist Z51.5 Comfort measures only status Z51.5 Need for comfort care
== END 2025-10-01 12:43 | disposition hospice, inpatient (51) | DRG 193 ==
LOC: ED 21:10 → SUATTDRO 23:54 → EDINP 23:54 → 2W 09-29 00:25